=== PATIENT | male | born 1955 | race Caucasian/White ===

== ENCOUNTER → 2017-10-27 09:50 | Outpatient (CLI) | payer BC, SELFPAY ==
--- NOTE | 2017-10-27 09:55 | RAD_ITS ---
STUDY: X-RAY - CERVICAL SPINE REASON FOR EXAM: Male, 61 years old. Neck pain and headache every day. IVC 3 years ago. TECHNIQUE: 6 view(s) of the cervical spine were obtained. COMPARISON: None FINDINGS: Normal anterior atlantoaxial articulation. Normal odontoid process. Normal cervical lordosis. Normal vertebral bodies and endplates. Anterior marginal spurs at C6-C7 disc level. Normal disc space heights. Normal visualized intervertebral neuroforamina. The soft tissue structures are unremarkable. RAD/Cerv Spine 4 or 5 Views IMPRESSION: Anterior marginal spurs at C6-C7 disc level otherwise negative radiographs of the cervical spine. Electronically Signed: Fredo Patiño MD at 10:24 EDT , Service support ,
== END ==
LOC: RAD 09:52
PROVIDERS: Family Provider Family Medicine; PCP Family Medicine; Visit Provider Nurse Practitioner Family
DX: M77.8 Other enthesopathies, not elsewhere classified (principal); M46.02 Spinal enthesopathy, cervical region
CPT/HCPCS: 72050

== ENCOUNTER → 2017-11-05 15:15 | Outpatient (CLI) | payer BC, SELFPAY ==
--- NOTE | 2017-11-05 15:26 | MRI_ITS ---
STUDY: MRI CERVICAL SPINE WITHOUT CONTRAST REASON FOR EXAM: Male, 61 years old. TECHNIQUE: Standardized fat and water weighted pulse sequences were obtained in the sagittal and axial planes. COMPARISON: None FINDINGS: There is no tonsillar ectopia. There is a normal cervicomedullary junction. The cervical spinal cord is of normal morphology and signal intensity and shows no evidence of myelomalacia, myelopathy or contusion. The cervical spine itself shows normal alignment and curvature with no acute fractures or dislocations and no abnormal marrow infiltrative processes. There is a normal craniovertebral junction and an intact tectorial membrane. The disc spaces are all of normal height and signal. C2-3: Normal endplates. Normal disc height, signal and morphology. Normal central canal and intervertebral neural foramina. C3-4: Normal endplates. Normal disc height, signal and morphology. Normal central canal and intervertebral neural foramina. C4-5: Normal endplates. Normal disc height, signal and morphology. Mild disc bulging with effacement of the CSF anterior to the cord. The intervertebral foramina are patent. C5-6: Mild disc bulging with effacement of the CSF anterior to the cord. No focal disc protrusion or extrusion. The intervertebral foramina in the lateral recesses are clear.. C6-7: Mild concentric disc bulging with effacement of the CSF anterior to the cord. The intervertebral foramina are patent.. C7-T1: Normal endplates. Normal disc height, signal and morphology. Normal central canal and intervertebral neural foramina. . MRI/Spine Cervical (Routine) IMPRESSION: Mild concentric disc bulges at C4-C5, C5-C6 and C6-7 with effacement of the CSF anterior to the cord at these levels. There is no focal disc protrusion or extrusion. The intervertebral foramina in the lateral recesses are all patent at these levels Electronically Signed: Farooq Montez, at 7:15 EDT Tel , Service support ,
== END ==
PROVIDERS: Family Provider Family Medicine; PCP Family Medicine; Visit Provider Nurse Practitioner Family
DX: M54.12 Radiculopathy, cervical region (principal); M48.9 Spondylopathy, unspecified
CPT/HCPCS: 72141

== ENCOUNTER → 2018-05-05 09:13 | Outpatient (CLI) | payer MEDICARE, SELFPAY ==
[2016-09-08 15:09] VITALS: BMI 27.5
--- NOTE | 2018-05-05 09:22 | RAD_ITS ---
STUDY: X-RAY CHEST REASON FOR EXAM: Male, 62 years old. TECHNIQUE: COMPARISON: March 26, 2017 FINDINGS: The heart and mediastinum are within normal limits. Both lung barahona and costophrenic angles are clear. There is calcified lymph node in the right suprahilar area. The trachea is in the midline. The visualized bony thorax is intact. There are multiple metallic clips superimposing the gastric bubble from previous surgery. RAD/Chest PA and Lateral IMPRESSION: Negative chest for active disease unchanged since March 26, 2017 Electronically Signed: Thao Morton, at 14:38 EST Tel , Service support ,
--- NOTE | 2018-05-05 09:25 | EKG12_ITS ---
Test Reason : PRE-OP Blood Pressure : / mmHG Vent. Rate : 073 BPM Atrial Rate : 073 BPM P-R Int : 160 ms QRS Dur : 090 ms QT Int : 372 ms P-R-T Axes : 077 035 040 degrees QTc Int : 409 ms Normal sinus rhythm Normal ECG Confirmed by STEFAN JAMES, YOSSI ([id number]), desk editor GLENDY ROY ([id number] on 05/07/2018 3:27:59 PM Referred By: Dany Roy Confirmed By:YOSSI AVILES MD
== END ==
LOC: RAD 09:16
PROVIDERS: Family Provider Family Medicine; PCP Family Medicine; Referring Provider Orthopaedic Surgery; Visit Provider Orthopaedic Surgery
DX: Z01.810 Encounter for preprocedural cardiovascular examination (principal); Z01.811 Encounter for preprocedural respiratory examination
CPT/HCPCS: 71046; 93005

== ENCOUNTER → 2018-05-18 13:22 | Outpatient (CLI) | payer MEDICARE, SELFPAY ==
[2018-05-18 15:21] LABS: Hematocrit 37.7 % (40-54); Hemoglobin 13.1 g/dl (13.0-16.5); Mean Corp Hgb Conc 34.7 g/gl (32-36); Mean Corpuscular Hgb 33.4 pg (27.0-32.0); Mean Corpuscular Volume 96.2 fL (80-94); Mean Platelet Vol. 9.1 fl (6.2-12.0); Platelet Count 211 K/mm3 (150-450); RBC Distribution Width CV 13.9 % (11.6-14.6); RBC Distribution Width SD 48.3 fl (35.1-43.9); Red Blood Count 3.92 M/mm3 (4.6-6.2); White Blood Count 3.6 K/mm3 (4.4-11.0)
[2018-05-18 15:22] LABS: Scan Indicated on CBC? Y/N NO
[2018-05-18 15:30] LABS: Anion Gap 8 (5-15); BUN 11 mg/dL (7-18); BUN/Creat Ratio 10.9 RATIO (10-20); Calcium,Total 8.4 mg/dL (8.5-10.1); Chloride 109 mmol/L (98-107); Creatinine, Serum 1.01 mg/dL (0.70-1.30); EST Glomerular Filtration Rate 79 mL/min (>60); Est Glom Filt Rate - Afr Amer 96 mL/min (>60); Glucose 83 mg/dL (74-106); Sodium Level 143 mmol/L (136-145)
== END ==
PROVIDERS: Family Provider Family Medicine; PCP Family Medicine; Referring Provider Orthopaedic Surgery; Visit Provider Orthopaedic Surgery
DX: S83.232A Complex tear of medial meniscus, current injury, left knee, initial encounter (principal); M22.42 Chondromalacia patellae, left knee
CPT/HCPCS: 36415; 80048; 85027

== ENCOUNTER → 2021-10-25 | Outpatient (CLI) | payer MEDICARE, SELFPAY ==
[2021-10-25 16:42] LABS: Absolute Neutrophil Count 1.8 X10^3/uL (2.0-7.7); Basophil# 0.04 X10^3/uL; Eosinophil# 0.27 X10^3/uL; Eosinophils% 6.5 % (0-5); Hematocrit 38.1 % (40-54); Lymphocyte % 38.6 % (19-41); Mean Corp Hgb Conc 34.1 g/dL (32-36); Mean Corpuscular Hgb 30.7 pg (27.0-32.0); Mean Corpuscular Volume 89.9 fL (80-94); Mean Platelet Vol. 8.6 fl (6.2-12.0); Monocyte% 9.7 % (0-10); NRBC Flagged by Analyzer 0 % (0-5); Neutrophil # 1.82 X10^3/uL (2.7-7.7); Platelet Count 299 K/mm3 (150-450); RBC Distribution Width CV 12.6 % (11.6-14.6); Red Blood Count 4.24 M/mm3 (4.6-6.2); White Blood Count 4.1 K/mm3 (4.4-11.0)
[2021-10-25 17:10] LABS: Anion Gap 5 (5-15); BUN 15 mg/dL (7-18); BUN/Creat Ratio 18.9 RATIO (10-20); Calcium,Total 8.9 mg/dL (8.5-10.1); Chloride 107 mmol/L (98-107); Creatinine, Serum 0.79 mg/dL (0.70-1.30); EST Glomerular Filtration Rate 104 mL/min (>60); Est Glom Filt Rate - Afr Amer 126 mL/min (>60); Glucose 102 mg/dL (74-106); Potassium 4.2 mmol/L (3.5-5.1); Sodium Level 138 mmol/L (136-145)
== END | disposition home or self-care (01) ==
LOC: LAB 16:18
PROVIDERS: PCP Family Medicine; Referring Provider Internal Medicine Cardiovascular Disease; Visit Provider Internal Medicine Cardiovascular Disease
DX: R06.00 Dyspnea, unspecified (principal); R07.9 Chest pain, unspecified; E78.5 Hyperlipidemia, unspecified
CPT/HCPCS: 36415; 80048; 85025

== ENCOUNTER 2021-10-28 10:38 | Day surgery (SDC) | payer MEDICARE, SELFPAY ==
--- NOTE | 2021-10-25 16:12 | RAD_ITS ---
HISTORY: dyspnea. TECHNIQUE: XR Chest 2 Views. COMPARISON: 05/05/2018. FINDINGS: CARDIOMEDIASTINAL BORDERS: Cardiac silhouette within normal limits in size. Mediastinal contour unchanged with calcified right hilar lymph nodes. LUNGS: Radiographically clear. PLEURA: No pleural effusion or pneumothorax seen. OSSEOUS STRUCTURES: Mild degenerative change. OTHER: Left upper quadrant postoperative change. RAD/Chest PA and Lateral IMPRESSION: No acute cardiopulmonary process identified. Electronically Signed: Jazmyne Lund MD at 16:26 EDT ,
[2021-10-28 07:07] VITALS: BMI 25.7
--- NOTE | 2021-10-28 15:16 | CL.D_ITS ---
Patient Name: TARA CASTILLO Study Date: 10/28/2021 Performing: David Cabral MD Ht: 68.89 inches 175 cm : 1955 Wt: 174.17 lbs 79 kg Age: 65 Gender: male BSA: 1.95 PROCEDURE(S) PERFORMED DC01-(86975)LHC/COR/LV CLINICAL PROFILE AND INDICATIONS Indications: Worsening Angina Heart Failure: None Stress/Imaging Stress/Image Study Performed: No CAD Presentations: Unstable angina. CONCLUSIONS Non obstructive coronary arteries RECOMMENDATIONS Medical therapy DESCRIPTION OF PROCEDURE The patient arrived to the procedure lab. The risks and benefits of the procedure as well as a full d escription of our services here and current unavailability of surgical backup were fully explained to the patient and/or their significant other prior to the catheterization. The Timeout was completed, verifying the correct patient and procedure. The patient's procedural site was prepped and draped in the usual fashion. . Using a modified Seldinger technique, Left Coronary Artery selective angiograp hy was performed in multiple views using a 5 Fr. 4.0 Mobile catheter. Right Coronary Artery selective angiography was then performed in multiple views using a 5 Fr. 4.0 Mobile catheter. Left Ventriculogra phy was performed in GUIDRY projection using a 5 Fr. Pigtail catheter. LV to AO pullback pressures were then recorded.The arterial sheath was pulled and a TR Band was applied for hemostasis 12 CC AIR CORONARY ANGIOGRAPHY DOMINANCE: Right Dominant LEFT HEART ASSESSMENT Left Ventricular Ejection Fraction: by LV Gram 65 % Normal LV wall motion Normal Left Ventricular systolic function LEFT MAIN: Angiographically normal LEFT ANTERIOR DESCENDING ARTERY: Mild luminal irregularities less than 30% CIRCUMFLEX ARTERY: Mild luminal irregularities RIGHT CORONARY ARTERY: Mild luminal irregularities COMPLICATIONS PROCEDURE MEDICATIONS Versed 1 mg IV Fentanyl 50 mcg IV Versed 1 mg IV Oxygen: 2 L/min via nasal cannula Heparin given IA 10/28/2021 15:00:57 Verapamil 2.5mg, Ntg 100mcgs, 3000 units of Heparin given IA 10/28/2021 15:00:57 SUMMARY OF HEMODYNAMIC DATA Time AIR REST ECG 11:07:38 AO 105/61 (80) SA 15:02:23 LV 85/29, 37 15:08:06 LV 72/0, 3 15:08:37 LVp 86/1, 1 15:08:53 AOp 84/43 (61) 15:08:58 Signed By David Cabral MD On 10/28/2021 3:15:42 PM David Cabral MD
== END 2021-10-28 18:00 | disposition home or self-care (01) ==
LOC: CLSP 10:39
PROVIDERS: PCP Family Medicine; Referring Provider Internal Medicine Cardiovascular Disease; Visit Provider Internal Medicine Cardiovascular Disease
DX: I25.110 Atherosclerotic heart disease of native coronary artery with unstable angina pectoris (principal); K21.9 Gastro-esophageal reflux disease without esophagitis; G47.33 Obstructive sleep apnea (adult) (pediatric); E55.9 Vitamin D deficiency, unspecified; E78.5 Hyperlipidemia, unspecified; Z79.82 Long term (current) use of aspirin; Z79.899 Other long term (current) drug therapy; Z87.891 Personal history of nicotine dependence
CPT/HCPCS: 71046; 93458; 99152; 99153; J7040; Q9967; C1769; C1894

== ENCOUNTER 2022-09-02 12:18 | Day surgery (SDC) | payer MEDICARE, SELFPAY ==
[2022-09-02] VITALS (7 sets, daily range): BP systolic 104–111; BP diastolic 54–70; PULSE 73–83; RESP 16–18; TEMP 36.2–36.7; O2SAT 93–96; BMI 25.9
[2022-09-02] MEDS: Lactated Ringers 1,000 ML 15 ML IV (13:09)
--- NOTE | 2022-09-02 14:00 | EGD_PTH ---
PATIENT: TARA CASTILLO LOC: EN U#:[id number] AGE/SX: 66/M ROOM: RE09/02/[address]: Dr. Jason Nelson DO : 1955 BED: DIS: 09/02/2022 SPEC #: [id number] RECD: 09/02/22 16:05 STATUS: NEEMA YAZMIN #: [id number] TYRON: 09/02/22 14:[address]: Jason Nelson DEPT: SURGICAL PATHOLOGY RECD BY: Alessandra Hurtado ENTERED: 09/03/22 08:10 SP TYPE: EGD BIOPSY OT DR: Dr. Andry Etienne MD Tissues: Esophagus, NOS Procedures: Special Stain Group II Surgery Specimen Level IV Alcian Blue/PAS (control) HEADER OPERATION: EGD ([facility] [place] PRE-OP DIAGNOSIS: Abdominal pain, dysphagia TISSUE SUBMITTED: Distal esophagus MICROSCOPIC DIAGNOSIS Distal esophagus, biopsy: Gastroesophageal junctional mucosa with mild chronic inflammation. Focal changes of reflux. No evidence of goblet cell metaplasia. See comment. AM:jovan 09/04/2022 COMMENT Alcian blue/PAS stain with matched control supports the above diagnosis. MICROSCOPIC DESCRIPTION Slides are reviewed. GROSS DESCRIPTION Received in fixative is one container labeled with the patient's name and designated distal esophagus biopsy. The specimen consists of two irregular fragments of light torres soft tissue that in aggregate measure 0.9 x 0.5 x 0.1 cm. The specimen is totally submitted in one cassette. / AM:jovan 09/03/2022 TC:3 CPT: 50693, 50034
--- NOTE | 2022-09-02 15:03 | HP.PCM_ITS ---
History and Physical Date of Admission: 09/02/22 66 M who presents to the office today for Initial consult. Gi Hx diverticulosis, GERD s/p gastrojejunostomy, hiatal hernia s/p fundoplication 2007 during gastric bypass, peptic ulcer, PMH asthma, CAD, migraines, hyperlipidemia, [place] on BIPAP, Vit D deficiency, insomnia. PSH appendectomy; back surgeries (decompression, revision); cholecystectomy; heart catheterization; laparoscopic exploratory with adhesion takedown. FH colon cancer mother, sister; father pancreatic cancer. [facility] workup Gasrtojejunostomy/enteroenterostomy/appendectomy 02.02.07 for reflux and gastroparesis. Stomach mobilized via takedown; retrocolic passage of small bowel into upper abdomen. ?Pathology without inflammation or architectural distortion. PCP OV 03.07.22 with upper abdominal discomfort/pain. *BGI established 06.27.22 with ongoing upper abdominal discomfort/pain that is present on a daily basis with PO intake causing aggravation; present for many years (some relief following surgery 3 years previously during which scar tissue was reduced). Cannot lay on his back. Feels that his esophagus is ?closing? up with dysphagia and feeling as though breathing is restricting, this is not a daily issue but is frequently. BM occur vary in frequency from once a day to 4-5 watery/loose episodes a day; BM only occur if he drinks two cups of coffee. ROS Const Constitutional: No anorexia, fatigue, fever(s), weight change or sleep problems Eyes Eyes: No change in vision ENT ENT: No abnormal hearing, difficulty swallowing, mouth lesions, tongue swelling or throat swelling Resp Respiratory: No cough or shortness of breath Cardio Cardiology: No chest pain at rest, chest pain with exertion, shortness of breath or dyspnea on exertion Gastro GI: No difficulty swallowing Genitourinary Male: No difficulty urinating or burning urination Musc Musculoskeletal: No joint pain, joint swelling, muscle weakness or decreased muscle mass Skin Skin: No hair loss in leg, yellowing of the eye, itchy eyes, rash, skin ulcer or skin swelling Neuro Neurology: No abnormal hearing, abnormal movements, confusion, unsteady gait/balance or memory loss Psych Psychiatric: No anxiety, No confusion and No memory loss Endo Endocrine: No fatigue or weight change Aller/Imm Allergy/Immunologic: No itchy eyes, throat swelling or tongue swelling Carlos Alberto/Lymp Hematologic/Lymphatic: No easy bleeding, easy bruising or enlarged lymph nodes Exam Const General: cooperative and comfortable Nutritional Appearance: average body habitus and well nourished HENKY Head: normal to inspection Ears: hearing grossly normal bilaterally Nose: external nose normal Face and sinus: normal facial exam Mouth: oral mucosae normal Throat: posterior oropharynx normal Eyes General: appearance normal, both eyes and all related structures Neck Neck: normal visual inspection Chest Chest palpation & inspection: normal inspection of the chest and normal palpation of entire chest wall Resp Effort & Inspection: normal respiratory effort Auscultation: Bilateral: Clear to Auscultation Cardio Palpation: normal PMI Rate: regular rate Rhythm: regular rhythm GI Inspection: normal to inspection Auscultation: normal bowel sounds Percussion: normal to percussion Palpation: no hepatosplenomegaly Skin General: no rashes or lesions noted Neuro General: patient alert Extrem General: normal to inspection Psych Affect: normal affect Quality Reporting Tobacco Screening ([facility]) Smoking Status: Former smoker Assessment and Plan Assessment and Plan (1) Abdominal discomfort: ?Status:?Chronic ?Plan: The differential diagnosis for his abdominal discomfort and pain does include a anastomotic ulcer, bile reflux back into the jejunum and back into the remnant stomach.? Also and of diagnosis is IBS.? If the studies are subsequently normal then we may need to get MRCP to evaluate his hepatobiliary system.? Further recommendations to follow the undergoes an upper endoscopy. I have examined the patient and the H&P has been reviewed. There are no clinical changes since date of exam.
--- NOTE | 2022-09-02 15:31 | OP.EGD_ITS ---
Patient Name: Anam Arellano Procedure Date: 09/02/2022 2:59 PM Date of : 1955 Age: 66 Procedure: Upper GI endoscopy Indications: Epigastric abdominal pain, Dysphagia Providers: Jason Nelson DO Medicines: Monitored Anesthesia Care Patient Profile: This is a 66 year old male. Refer to note in patient chart for documentation of history and physical. Patient has symptoms of acute dysphagia and dysphagia with solids. Complications: No immediate complications. Procedure: Pre-Anesthesia Assessment: - Prior to the procedure, a History and Physical was performed, and patient medications and allergies were reviewed. The risks and benefits of the procedure and the sedation options and risks were discussed with the patient. All questions were answered and informed consent was obtained. Patient identification and proposed procedure were verified by the physician in the pre-procedure area. Mental Status Examination: alert and oriented. Airway Examination: normal oropharyngeal airway and neck mobility. Respiratory Examination: clear to auscultation. CV Examination: normal. Prophylactic Antibiotics: The patient does not require prophylactic antibiotics. Prior Anticoagulants: The patient has taken no previous anticoagulant or antiplatelet agents. After reviewing the risks and benefits, the patient was deemed in satisfactory condition to undergo the procedure. The anesthesia plan was to use monitored anesthesia care (MAC). Immediately prior to administration of medications, the patient was re-assessed for adequacy to receive sedatives. The heart rate, respiratory rate, oxygen saturations, blood pressure, adequacy of pulmonary ventilation, and response to care were monitored throughout the procedure. The physical status of the patient was re-assessed after the procedure. After obtaining informed consent, the endoscope was passed under direct vision. Throughout the procedure, the patient's blood pressure, pulse, and oxygen saturations were monitored continuously. The Endoscope was introduced through the mouth, and advanced to the second part of duodenum. The upper GI endoscopy was accomplished without difficulty. The patient tolerated the procedure well. Scope In: 3:13:09 PM Scope Out: 3:19:27 PM Total Procedure Duration Time 0 hours 6 minutes 18 seconds Findings: A moderate Schatzki ring was found in the upper third of the esophagus. A guidewire was placed and the scope was withdrawn. Dilation was performed with a Savary dilator with no resistance at 60 Fr. The dilation site was examined and showed complete resolution of luminal narrowing. Estimated blood loss was minimal. A small hiatal hernia was present. The Z-line was irregular and was found 40 cm from the incisors. Biopsies were taken with a cold forceps for histology. Verification of patient identification for the specimen was done. Estimated blood loss was minimal. Evidence of a Larry-en-Y gastrojejunostomy was found. The gastrojejunal anastomosis was characterized by a disrupted staple line. This was traversed. The rkifg-jp-lcvtlak limb was characterized by healthy appearing mucosa. The jejunojejunal anastomosis was characterized by healthy appearing mucosa. The mrudzihr-cb-ehzxwlc limb was not examined as it could not be found. Removal of a staple was accomplished with a rat-toothed forceps. Verification of patient identification for the specimen was done. Estimated blood loss was minimal. Impression: - Moderate Schatzki ring. Dilated. - Small hiatal hernia. - Z-line irregular, 40 cm from the incisors. Biopsied. - Larry-en-Y gastrojejunostomy with gastrojejunal anastomosis characterized by a disrupted staple line. Recommendation: - Discharge patient to home. - Resume previous diet. - Continue present medications. - Await pathology results. Procedure Code(s): --- Professional --- 13545, Esophagogastroduodenoscopy, flexible, transoral; with removal of foreign body(s) 35467, 51, Esophagogastroduodenoscopy, flexible, transoral; with insertion of guide wire followed by passage of dilator(s) through esophagus over guide wire 21061, 59, Esophagogastroduodenoscopy, flexible, transoral; with biopsy, single or multiple CPT copyright 2017 [employer]. All rights reserved. The codes documented in this report are preliminary and upon sergeant missile crewman review may be revised to meet current compliance requirements. Jason Nelson DO 09/02/2022 3:31:16 PM This report has been signed electronically. Number of Addenda: 0 Note Initiated On: 09/02/2022 2:59 PM
--- NOTE | 2022-09-02 15:32 | OP.CCLET_ITS ---
09/02/2022 Andry Etienne MD Re : Upper GI endoscopy procedure for Anam Arellano Dear Dr. Etienne This procedure was performed on Friday, September 02, 2022. My impressions and recommendations are as follows: Impressions : - Moderate Schatzki ring. Dilated. - Small hiatal hernia. - Z-line irregular, 40 cm from the incisors. Biopsied. - Larry-en-Y gastrojejunostomy with gastrojejunal anastomosis characterized by a disrupted staple line. Recommendations : - Discharge patient to home. - Resume previous diet. - Continue present medications. - Await pathology results. My findings are described in the full procedure note, which is enclosed. If I can be of further assistance, please feel free to contact me at . Sincerely, Jason Nelson, 09/02/2022 3:31:16 PM This report has been signed electronically.
== END 2022-09-02 16:25 | disposition home or self-care (01) ==
LOC: EN 12:25 → AC 12:26
PROVIDERS: PCP Family Medicine; Referring Provider Family Medicine; Visit Provider Internal Medicine Gastroenterology
PROC: 0DJ08ZZ Inspection of Upper Intestinal Tract, Via Natural or Artificial Opening Endoscopic (ICD-10-PCS; CPT 43235; principal; 2022-09-02 13:55)
DX: K22.2 Esophageal obstruction (principal); K44.9 Diaphragmatic hernia without obstruction or gangrene; K21.00 Gastro-esophageal reflux disease with esophagitis, without bleeding; G47.33 Obstructive sleep apnea (adult) (pediatric); I25.10 Atherosclerotic heart disease of native coronary artery without angina pectoris; E78.00 Pure hypercholesterolemia, unspecified; M19.90 Unspecified osteoarthritis, unspecified site; Z79.899 Other long term (current) drug therapy; Z87.891 Personal history of nicotine dependence
CPT/HCPCS: 43247; 43248; 43239; 88305; 88313; J7120; C1769; J2405

== ENCOUNTER → 2022-09-23 | Outpatient (CLI) | payer MEDICARE, SELFPAY ==
--- NOTE | 2022-09-23 06:42 | CT_ITS ---
EXAM: CT CHEST, ABDOMEN AND PELVIS WITH INTRAVENOUS CONTRAST CLINICAL INDICATION: chest and abdominal pain TECHNIQUE: Helically acquired images were obtained of the chest, abdomen and pelvis with intravenous contrast. This CT exam was performed using one or more of the following dose reduction techniques: automated exposure control, adjustment of the mA and/or kV according to patient size, and/or use of iterative reconstruction technique. CONTRAST: Oral and amp; IV Readi-CAT and amp; 100mL Isovue-300 COMPARISON: No relevant prior studies available. FINDINGS: CHEST: LUNGS AND PLEURAL SPACES: Diffuse centrilobular pulmonary emphysema. No airspace opacification of the lungs. No mass. No pleural effusion or thickening. HEART: Minimal coronary artery calcification. No pericardial effusion. Normal heart size. MEDIASTINUM: Small calcified right hilar lymph nodes related to old granulomatous disease. Small hiatal hernia. Esophagus is unremarkable. THYROID: Normal. No thyroid nodules or calcification. ABDOMEN: LIVER: Normal. Homogeneous. No focal mass. GALLBLADDER AND BILE DUCTS: Gallbladder is not identified. There is mild prominence of the biliary tree which may represent normal postcholecystectomy finding. PANCREAS: Normal. No focal cystic or solid mass. SPLEEN: Normal. Normal size without focal cystic or solid mass. ADRENALS: Normal. No nodules. KIDNEYS AND URETERS: Simple appearing 2.9 cm left renal cyst. Normal renal size and position. No hydronephrosis. STOMACH AND BOWEL: Surgical changes of Larry-en-Y gastric bypass. No evidence of bowel obstruction or significant ileus. PELVIS: APPENDIX: No evidence of acute appendicitis. BLADDER: Normal. REPRODUCTIVE: Unremarkable as visualized. No mass. CHEST, ABDOMEN and PELVIS: INTRAPERITONEAL SPACE: Normal. No ascites or other fluid collection. No free air. BONES/JOINTS: Moderate disc degeneration noted at the L4-5 level consisting of disc space narrowing, endplate sclerosis and subchondral cyst formation. SOFT TISSUES: Normal. No discrete abdominal or pelvic wall hernia. VASCULATURE: No aortic aneurysm. LYMPH NODES: No significant lymphadenopathy. CT/CT Chest, Abd, Pel w/Contrast IMPRESSION: 1. No acute cardiopulmonary abnormality. 2. Centrilobular pulmonary emphysema. 3. Small hiatal hernia. 4. No acute abdominal or pelvic abnormality. Electronically Signed: Alberto Avina MD at 7:51 EDT Reading Location ID and State: [facility] / [place] Tel , Service support ,
[2022-09-23 07:30] LABS: EGFR FINGERSTICK > 60.0000 mL/min (>60)
== END | disposition home or self-care (01) ==
LOC: CT 06:39
PROVIDERS: PCP Family Medicine; Referring Provider Internal Medicine Gastroenterology; Visit Provider Internal Medicine Gastroenterology
DX: R07.9 Chest pain, unspecified (principal)
CPT/HCPCS: 71260; 74177

== ENCOUNTER → 2022-10-04 | Outpatient (CLI) | payer MEDICARE, SELFPAY | END | disposition home or self-care (01) | LOC: LABSPEC 09:09 | PROVIDERS: PCP Family Medicine; Referring Provider Internal Medicine Pulmonary Disease; Visit Provider Internal Medicine Pulmonary Disease | DX: R05.9 Cough, unspecified (principal) | CPT/HCPCS: 87070; 87205 ==

== ENCOUNTER 2023-02-09 12:32 | Emergency (ER) | payer MEDICARE, SELFPAY ==
[2023-02-09] VITALS (8 sets, daily range): BP systolic 85–212; BP diastolic 39–171; PULSE 74–100; RESP 15–22; TEMP 36.6; O2SAT 91–98
--- NOTE | 2023-02-09 13:51 | CT_ITS ---
STUDY: CT BRAIN WITHOUT CONTRAST REASON FOR EXAM: Male, 67 years old. Syncope RADIATION DOSAGE (If Supplied By Facility): CTDIvol = ( 47.06 ) mGy, DLP = ( 907.97 ) mGycm TECHNIQUE: Transaxial CT imaging of the brain was performed without administration of intravenous contrast material. Individualized dose optimization techniques were used for this CT. COMPARISON: Comparison is made with prior examination dated June 16, 2014. FINDINGS: Normal soft tissue structures. Normal calvarium. Normal size ventricles and extra-axial spaces for the patient''s age. Normal white matter tracts of the cerebral hemispheres. Normal basal ganglia and thalami. Normal brainstem. Normal cerebellum. There is no intracranial hemorrhage. There are no findings of an acute ischemic infarction. Mild degree mucosal thickening of the ethmoid sinuses bilaterally. CT/Brain/Head without Contrast IMPRESSION: Mild degree of mucosal thickening of the ethmoid sinuses bilaterally. Electronically Signed: Jey Montiel MD at 14:43 EDT ,
--- NOTE | 2023-02-09 13:53 | EX.ED.DYSGE1 ---
HPI <KATARINA Yuen - Last Filed: 02/09/23 18:15> History of Present Illness Chief Complaint: Fall Narrative Narrative: Patient is a 67-year-old male with history of GERD, asthma, who presents to the emergency department for significant pain to the upper abdomen that caused him to almost lose consciousness. Patient states the pain started in his abdomen when he was having a bowel movement this morning. He then got into the shower, had significant pain again to the upper abdomen, and had a near syncopal episode. He then had to get out of the shower go to have another bowel movement. Patient states this happened 3 more times. Patient states the pain is not as severe as what it was however he is here for evaluation. He does have history of cholecystectomy, appendectomy. He does see Dr. Nelson for his acid reflux and had esophageal stretching. Patient states the pain is at a 6 out of 10 at this time. Patient denies any blood in his stool or vomit patient denies any chest pain. PFSH <KATARINA Yuen - Last Filed: 02/09/23 18:15> [facility] Medical History Anxiety Arthritis Asthma Bilateral carotid artery disease Cardiology follow-up encounter Chronic low back pain CPAP (continuous positive airway pressure) dependence Diverticulosis Former smoker Gastric reflux GERD (gastroesophageal reflux disease) Hiatal hernia High cholesterol History of stress test History of ulceration Hyperlipidemia Injury of back Insomnia Iron deficiency anemia Iron deficiency anemia secondary to inadequate dietary iron intake Low iron Lumbar disc disease Malabsorption syndrome Nonobstructive atherosclerosis of coronary artery [place] treated with BiPAP Peptic ulcer Pulmonary emphysema Sleep apnea Vitamin D deficiency Wears glasses Wears partial dentures Home Medications calcium carbonate 600 mg-vitamin D3 10 mcg (400 unit) chewable tablet (Calcium 600 with Vitamin D3) 1 ea PO DAILY 09/08/16 [History Last Taken Unknown] albuterol sulfate 90 mcg/actuation aerosol inhaler (Ventolin HFA) 2 puff inhalation Q6H PRN Wheezing 10/24/21 [History Last Taken Unknown] budesonide-formoterol HFA 80 mcg-4.5 mcg/actuation aerosol inhaler 2 puff inhalation BID 10/24/21 [History Last Taken 09/02/22] cholecalciferol (vitamin D3) 1,250 mcg (50,000 unit) tablet 1,250 mcg PO QWEEK 10/24/21 [History Last Taken Unknown] cyanocobalamin (vitamin B-12) 1,000 mcg tablet (Vitamin B-12) 2,000 mcg PO DAILY 10/24/21 [History Last Taken Unknown] epinephrine 0.3 mg/0.3 mL injection, auto-injector (EpiPen) 0.3 mg IM ONCE PRN Allergic Reaction 10/24/21 [History Last Taken Unknown] nitroglycerin 0.4 mg sublingual tablet 0.4 mg sublingual Q5-15M PRN Chest Pain 10/24/21 [History Last Taken Unknown] omega-3 fatty acids 1,000 mg capsule 1,000 mg PO DAILY 10/24/21 [History Last Taken Unknown] omeprazole 40 mg capsule,delayed release 40 mg PO BID 10/24/21 [History Last Taken Unknown] coenzyme Q10 100 mg capsule (Co Q-10) 100 mg PO DAILY 10/25/21 [History Last Taken Unknown] iron, carbonyl 45 mg tablet 45 mg PO DAILY 04/22/22 [History Last Taken Unknown] pravastatin 80 mg tablet 40 mg PO QHS 10/29/22 [History Last Taken Unknown] azithromycin 250 mg tablet (Zithromax) 250 mg PO DAILY 4 days #4 tabs 02/09/23 [Rx Last Taken Unknown] Allergy/AdvReac Type Severity Reaction Status Date / Time bee venom protein (honey bee) Allergy Intermediate Hives Verified 02/09/23 12:34 morphine Allergy Intermediate hypotension Verified 02/09/23 12:34 pneumococcal vaccine Allergy Intermediate localized Verified 02/09/23 12:34 swelling acetaminophen Allergy Unknown Verified 02/09/23 12:34 [From Darvocet-N 100] codeine Allergy Unknown Verified 02/09/23 12:34 meperidine HCl [From Demerol] Allergy Unknown Verified 02/09/23 12:34 propoxyphene HCl Allergy Unknown Verified 02/09/23 12:34 [From Darvon] propoxyphene napsylate Allergy Unknown Verified 02/09/23 12:34 [From Darvocet-N 100] atorvastatin [From Lipitor] AdvReac Intermediate leg Verified 02/09/23 12:34 weakness Family History Mother Diabetes CHF (congestive heart failure) Hypertension Colon cancer Father Cancer pancreatic Sister Colon cancer Brother COPD (chronic obstructive pulmonary disease) Diabetes Cancer prostate Surgical History H/O bypass gastrojejunostomy (~2006) History of appendectomy History of back surgery (09/11/15) History of carpal tunnel release History of cholecystectomy (~2002) History of colonoscopy (~10/23/20) History of esophagogastroduodenoscopy (EGD) (~10/23/20) History of gastric bypass History of left heart catheterization (10/28/21) Social History Smoking Status: Former smoker Tobacco: How many years used: 33 how long ago did patient quit smokin08/07/2001 alcohol intake: never substance use type: does not use ROS <KATARINA Yuen - Last Filed: 02/09/23 18:15> ROS ED ROS Narrative Constitutional: Negative for fever, chills, weight loss, weakness Eyes: Negative for vision loss, vision change, double vision ENT: Negative for any sore throat, ear pain, congestion Cardiovascular: Negative for any chest pain, tightness, palpitations Respiratory: Negative for any cough, sputum production, hemoptysis, dyspnea, dyspnea on exertion, orthopnea Gastrointestinal: Negative for any vomiting, diarrhea, constipation, blood in stool, blood in vomit. Patient has significant upper abdominal pain : Negative for any urinary frequency, dysuria, retention, blood in urine Muscle skeletal: Negative for any muscle joint pain, stiffness, myalgias, arthralgias, neck pain, back pain Neurological: Negative for any headache, numbness or tingling, dizziness. Near syncope Skin: Negative for any rashes, lumps, itching, abrasions, lacerations Psychiatric: Negative for any depression, anxiety, stress, suicidal ideation, homicidal ideation Hematologic: Negative for any easy bruising, excessive bruising, easy bleeding Allergies: Negative for any eczema, hives, rash EXAM <KATARINA Yuen - Last Filed: 02/09/23 18:15> Physical Exam Narrative Exam Narrative: Vital signs reviewed. Patient appears to be in no obvious distress during my examination. Patient did have a elevated blood pressure of 212/171. However on reevaluation, patient's blood pressure is 122/67. Patient looks to be in no distress. HEET: Head normocephalic atraumatic, TMs clear bilaterally. Posterior pharynx is clear, moist mucous membranes. Nares clear bilaterally. Neck: Supple with no lymphadenopathy or tenderness. No signs of meningismus, negative jolt sign. Cardiac: Regular rate and rhythm no murmurs gallops or rubs, equal peripheral pulses bilaterally. Respiratory: Lungs clear to auscultation bilaterally. No chest tenderness. Abdomen: Soft, nondistended. No abdominal bruit or pulsatile masses. No hepatosplenomegaly. Patient has pain to both the right upper, epigastric pain. Worse on palpation. No peritoneal signs. Active bowel sounds in all quadrants Extremities: No peripheral edema, no signs of gross trauma or deformity. Active full range of motion of all extremities. Neuro: Cranial nerves II through XII intact, no focal neurological deficits. Skin: Clean dry and intact with no rash, purpura, petechiae, vesicles or pustules. Backs/flank: No CVA tenderness, no midline spinal tenderness, no deformity. Psych: Normal mood and affect. No SI, HI or acute psychosis. Const Vital Signs: 02/09/23 12:35 02/09/23 13:31 02/09/23 13:31 Temperature 97.9 F Temperature Source Temporal Pulse Rate 88 86 Pulse Rate [Lying] Pulse Rate [Sitting (for 1 minute prior to obtaining)] Pulse Rate [Standing (for 1 minute prior to obtaining)] Respiratory Rate 16 16 Respiratory Effort Respiratory Pattern Blood Pressure 212/171 H 119/64 Blood Pressure [Lying] Blood Pressure [Sitting (for 1 minute prior to obtaining)] Blood Pressure [Standing (for 1 minute prior to obtaining)] Blood Pressure Mean 184 82 Blood Pressure Mean [Lying] Blood Pressure Mean [Sitting (for 1 minute prior to obtaining)] Blood Pressure Mean [Standing (for 1 minute prior to obtaining)] Pulse Ox 98 97 97 Oxygen Delivery Method Room Air Room Air Room Air 02/09/23 13:31 02/09/23 13:31 02/09/23 14:20 Temperature Temperature Source Pulse Rate 87 Pulse Rate [Lying] 86 Pulse Rate [Sitting (for 1 minute prior to obtaining)] 98 Pulse Rate [Standing (for 1 minute prior to obtaining)] 100 Respiratory Rate 15 Respiratory Effort Normal Non-Labored Respiratory Pattern Normal Blood Pressure 142/68 H Blood Pressure [Lying] 131/64 H Blood Pressure [Sitting (for 1 minute prior to obtaining)] 122/89 H Blood Pressure [Standing (for 1 minute prior to obtaining)] 122/67 H Blood Pressure Mean 92 Blood Pressure Mean [Lying] 86 Blood Pressure Mean [Sitting (for 1 minute prior to obtaining)] 100 Blood Pressure Mean [Standing (for 1 minute prior to obtaining)] 85 Pulse Ox 91 Oxygen Delivery Method Room Air 02/09/23 15:00 02/09/23 15:33 02/09/23 15:37 Temperature Temperature Source Pulse Rate 74 85 84 Pulse Rate [Lying] Pulse Rate [Sitting (for 1 minute prior to obtaining)] Pulse Rate [Standing (for 1 minute prior to obtaining)] Respiratory Rate 16 22 H Respiratory Effort Respiratory Pattern Blood Pressure 116/55 L 85/39 L 114/58 L Blood Pressure [Lying] Blood Pressure [Sitting (for 1 minute prior to obtaining)] Blood Pressure [Standing (for 1 minute prior to obtaining)] Blood Pressure Mean 75 54 76 Blood Pressure Mean [Lying] Blood Pressure Mean [Sitting (for 1 minute prior to obtaining)] Blood Pressure Mean [Standing (for 1 minute prior to obtaining)] Pulse Ox 96 Oxygen Delivery Method Room Air 02/09/23 16:00 02/09/23 18:00 Temperature Temperature Source Pulse Rate 84 89 Pulse Rate [Lying] Pulse Rate [Sitting (for 1 minute prior to obtaining)] Pulse Rate [Standing (for 1 minute prior to obtaining)] Respiratory Rate 20 H 22 H Respiratory Effort Respiratory Pattern Blood Pressure 118/60 128/64 H Blood Pressure [Lying] Blood Pressure [Sitting (for 1 minute prior to obtaining)] Blood Pressure [Standing (for 1 minute prior to obtaining)] Blood Pressure Mean 79 85 Blood Pressure Mean [Lying] Blood Pressure Mean [Sitting (for 1 minute prior to obtaining)] Blood Pressure Mean [Standing (for 1 minute prior to obtaining)] Pulse Ox 96 93 Oxygen Delivery Method Room Air Room Air <Dr. Maycol Olivares MD - Last Filed: 02/09/23 15:36> Physical Exam Const Vital Signs: 02/09/23 12:35 02/09/23 13:31 02/09/23 13:31 Temperature 97.9 F Temperature Source Temporal Pulse Rate 88 86 Pulse Rate [Lying] Pulse Rate [Sitting (for 1 minute prior to obtaining)] Pulse Rate [Standing (for 1 minute prior to obtaining)] Respiratory Rate 16 16 Respiratory Effort Respiratory Pattern Blood Pressure 212/171 H 119/64 Blood Pressure [Lying] Blood Pressure [Sitting (for 1 minute prior to obtaining)] Blood Pressure [Standing (for 1 minute prior to obtaining)] Blood Pressure Mean 184 82 Blood Pressure Mean [Lying] Blood Pressure Mean [Sitting (for 1 minute prior to obtaining)] Blood Pressure Mean [Standing (for 1 minute prior to obtaining)] Pulse Ox 98 97 97 Oxygen Delivery Method Room Air Room Air Room Air 02/09/23 13:31 02/09/23 13:31 02/09/23 14:20 Temperature Temperature Source Pulse Rate 87 Pulse Rate [Lying] 86 Pulse Rate [Sitting (for 1 minute prior to obtaining)] 98 Pulse Rate [Standing (for 1 minute prior to obtaining)] 100 Respiratory Rate 15 Respiratory Effort Normal Non-Labored Respiratory Pattern Normal Blood Pressure 142/68 H Blood Pressure [Lying] 131/64 H Blood Pressure [Sitting (for 1 minute prior to obtaining)] 122/89 H Blood Pressure [Standing (for 1 minute prior to obtaining)] 122/67 H Blood Pressure Mean 92 Blood Pressure Mean [Lying] 86 Blood Pressure Mean [Sitting (for 1 minute prior to obtaining)] 100 Blood Pressure Mean [Standing (for 1 minute prior to obtaining)] 85 Pulse Ox 91 Oxygen Delivery Method Room Air 02/09/23 15:00 02/09/23 15:33 02/09/23 15:37 Temperature Temperature Source Pulse Rate 74 85 84 Pulse Rate [Lying] Pulse Rate [Sitting (for 1 minute prior to obtaining)] Pulse Rate [Standing (for 1 minute prior to obtaining)] Respiratory Rate 16 22 H Respiratory Effort Respiratory Pattern Blood Pressure 116/55 L 85/39 L 114/58 L Blood Pressure [Lying] Blood Pressure [Sitting (for 1 minute prior to obtaining)] Blood Pressure [Standing (for 1 minute prior to obtaining)] Blood Pressure Mean 75 54 76 Blood Pressure Mean [Lying] Blood Pressure Mean [Sitting (for 1 minute prior to obtaining)] Blood Pressure Mean [Standing (for 1 minute prior to obtaining)] Pulse Ox 96 Oxygen Delivery Method Room Air 02/09/23 16:00 02/09/23 18:00 Temperature Temperature Source Pulse Rate 84 89 Pulse Rate [Lying] Pulse Rate [Sitting (for 1 minute prior to obtaining)] Pulse Rate [Standing (for 1 minute prior to obtaining)] Respiratory Rate 20 H 22 H Respiratory Effort Respiratory Pattern Blood Pressure 118/60 128/64 H Blood Pressure [Lying] Blood Pressure [Sitting (for 1 minute prior to obtaining)] Blood Pressure [Standing (for 1 minute prior to obtaining)] Blood Pressure Mean 79 85 Blood Pressure Mean [Lying] Blood Pressure Mean [Sitting (for 1 minute prior to obtaining)] Blood Pressure Mean [Standing (for 1 minute prior to obtaining)] Pulse Ox 96 93 Oxygen Delivery Method Room Air Room Air [facility] <KATARINA Yuen - Last Filed: 02/09/23 18:15> [facility] Lab Data Labs: Laboratory Results - last 24 hr 02/09/23 02/09/23 12:45 14:20 WBC 11.5 H RBC 4.66 Hgb 14.0 Hct 41.9 MCV 89.9 MCH 30.0 MCHC 33.4 RDW Std Deviation 41.4 RDW Coeff of Dari 12.6 Plt Count 242 MPV 9.1 Immature Gran % (Auto) 0.300 Neut % (Auto) 84.8 H Lymph % (Auto) 5.9 L [place] % (Auto) 7.8 Eos % (Auto) 0.9 Baso % (Auto) 0.3 Absolute Neuts (auto) 9.7 H Absolute Lymphs (auto) 0.68 L Nucleated RBC % 0 Sodium 139 Potassium 4.2 Chloride 106 Carbon Dioxide 28.0 Anion Gap 5 BUN 16 Creatinine 0.90 Est GFR (MDRD) Af Amer 107 Est GFR (MDRD) Non-Af 89 BUN/Creatinine Ratio 17.7 Glucose 106 Calcium 9.1 Total Bilirubin 0.50 AST 144 H ALT 114 H Alkaline Phosphatase 85 Troponin I High Sens 4 Total Protein 7.1 Albumin 4.0 Globulin 3.1 Albumin/Globulin Ratio 1.3 Lipase 42 Urine Color Yellow Urine Clarity Clear Urine pH 5.0 Ur Specific [place] 1.015 Urine Protein Negative Urine Glucose (UA) Normal Urine Ketones Negative Urine Occult Blood Negative Urine Nitrite Negative Urine Bilirubin Negative Urine Urobilinogen Normal Ur Leukocyte Esterase Negative Urine RBC 0 SEEN Urine WBC 0 SEEN Ur Squamous Epith Cells 0-5 SEEN Amorphous Sediment 1+ URATE Urine Bacteria 0 SEEN Urine Mucus 0 SEEN Radiography Diagnostic Testing: Clinical Impression(s) from Imaging Studies Brain CT 02/09/23 13:51 IMPRESSION: Mild degree of mucosal thickening of the ethmoid sinuses bilaterally. Electronically Signed: Jey Montiel MD at 14:43 EDT , Abdomen/Pelvis CT 02/09/23 15:09 IMPRESSION: Right lower lobe airspace disease consistent with pneumonia. Mild biliary duct dilation, unchanged from the prior study and consistent with presumed prior cholecystectomy. Electronically Signed: Zara Magallanes MD at 17:06 EDT , Treatment and Re-Evaluation :: Patient initial evaluation was in no obvious distress. Patient is concerned for his upper abdominal pain. Patient also concerned because he has had multiple head injuries over the last 2 to 3 weeks. Patient states that he had a large branch fall on his head that caused him to have a concussion as well as a loss of consciousness. Patient received basic laboratory values concerning for any acute pancreatitis, electrolyte abnormalities, leukocytosis. CT scan of the abdomen pelvis with IV contrast will be ordered to rule out any bowel obstruction, free air, diverticulitis, pancreatitis. Patient will receive a CT scan of the brain concerning for the multiple head injuries with LOC and continued headache. Patient was given 0.5 mg of Dilaudid as well as IV Zofran and IV fluids. Laboratory values show leukocytosis white blood count 11.5. Patient's chemistries show slight elevation in AST, ALT at 144 and 114. Patient's lipase was negative. Urinalysis was negative for infection. Patient CT scan of the brain showed mild degree of mucosal thickening however no acute process. Patient CT of the abdomen pelvis showed right lower lobe airspace disease consistent with pneumonia. Mild biliary duct dilatation, unchanged from prior study and consistent with presumed prior cholecystectomy. Secondary this finding, patient will be given a chest x-ray to rule out any pneumonia. Patient's x-ray done by ER physician does show pneumonia of the right lower lobe. This could be causing the pain. Patient weeks with azithromycin. First dose given here, will take 200 mg the next 4 days. He was given oxycodone here prior to discharge. He is instructed to return for any worsening symptoms. He will take ibuprofen, Tylenol for any other discomfort. He instructed return for any coughing, shortness of breath, worsening pain. <Dr. Maycol Olivares MD - Last Filed: 02/09/23 15:36> [facility] Narrative Medical decision making narrative: I have personally performed a face to face assessment of the patient and have reviewed the ZACHERY Note. I performed a substantive portion of the visit including all aspects of the following. My todd findings include: History is 67-year-old male complaining of abdominal pain today while he was having a bowel movement. Denies any significant constipation. No melena. No fever. States that he has had a prior cholecystectomy, appendectomy and partial gastrectomy. He is never had a bowel obstruction. Denies any back pain. Exam is [67-year-old male initial blood pressure is 212 and 171 rechecked 142/68. He does not look septic or toxic. He is complaint abdominal pain. Is been treated with IV Dilaudid. HEENT exam unremarkable. Moist weeks membranes. Neck nontender no JVD. Lungs clear to auscultation. Heart regular rhythm no murmur rate about 85. Chest wall nontender. Abdomen prior well-healed abdominal scars. Mildly distended. Diffusely tender. No localizing but diffuse tenderness. Moves all 4 extremities. Nontender no edema. Neurologically is awake and alert.] Medical Decision Making [67-year-old male with abdominal pain differential would include bowel obstruction, AAA, perforated viscus versus other etiologies. CAT scan labs are being obtained. Is also recently had some falls and some head injuries and a CAT scan of his head is being obtained also because of headaches.] Other additions or changes: [None] Lab Data Labs: Laboratory Results - last 24 hr 02/09/23 02/09/23 12:45 14:20 WBC 11.5 H RBC 4.66 Hgb 14.0 Hct 41.9 MCV 89.9 MCH 30.0 MCHC 33.4 RDW Std Deviation 41.4 RDW Coeff of Dari 12.6 Plt Count 242 MPV 9.1 Immature Gran % (Auto) 0.300 Neut % (Auto) 84.8 H Lymph % (Auto) 5.9 L [place] % (Auto) 7.8 Eos % (Auto) 0.9 Baso % (Auto) 0.3 Absolute Neuts (auto) 9.7 H Absolute Lymphs (auto) 0.68 L Nucleated RBC % 0 Sodium 139 Potassium 4.2 Chloride 106 Carbon Dioxide 28.0 Anion Gap 5 BUN 16 Creatinine 0.90 Est GFR (MDRD) Af Amer 107 Est GFR (MDRD) Non-Af 89 BUN/Creatinine Ratio 17.7 Glucose 106 Calcium 9.1 Total Bilirubin 0.50 AST 144 H ALT 114 H Alkaline Phosphatase 85 Troponin I High Sens 4 Total Protein 7.1 Albumin 4.0 Globulin 3.1 Albumin/Globulin Ratio 1.3 Lipase 42 Urine Color Yellow Urine Clarity Clear Urine pH 5.0 Ur Specific [place] 1.015 Urine Protein Negative Urine Glucose (UA) Normal Urine Ketones Negative Urine Occult Blood Negative Urine Nitrite Negative Urine Bilirubin Negative Urine Urobilinogen Normal Ur Leukocyte Esterase Negative Urine RBC 0 SEEN Urine WBC 0 SEEN Ur Squamous Epith Cells 0-5 SEEN Amorphous Sediment 1+ URATE Urine Bacteria 0 SEEN Urine Mucus 0 SEEN Radiography Diagnostic Testing: Clinical Impression(s) from Imaging Studies Brain CT 02/09/23 13:51 IMPRESSION: Mild degree of mucosal thickening of the ethmoid sinuses bilaterally. Electronically Signed: Jey Montiel MD at 14:43 EDT , Abdomen/Pelvis CT 02/09/23 15:09 IMPRESSION: Right lower lobe airspace disease consistent with pneumonia. Mild biliary duct dilation, unchanged from the prior study and consistent with presumed prior cholecystectomy. Electronically Signed: Zara Magallanes MD at 17:06 EDT [place] Location ID and State: [id number] / Tel , Service support , Discharge Plan Triage Chief Complaint: Fall Other Complaint: Syncope ED Midlevel Provider: Ronak Miller ED Provider: Maycol Olivares Dx/Rx/DC Orders Clinical Impression: Cough, Community acquired bacterial pneumonia, Abdominal pain, acute, right upper quadrant Instructions: ED Pneumonia (Adult) Prescriptions: New azithromycin [Zithromax] 250 mg tablet 250 mg PO DAILY 4 Days Qty: 4 0RF Rx Instructions: start on day 2 of therapy No Action coenzyme Q10 [Co Q-10] 100 mg capsule 100 mg PO DAILY omeprazole 40 mg capsule,delayed release(DR/EC) 40 mg PO BID budesonide-formoterol 80-4.5 mcg/actuation HFA aerosol inhaler 2 puff inhalation BID cyanocobalamin (vitamin B-12) [Vitamin B-12] 1,000 mcg tablet 2,000 mcg PO DAILY cholecalciferol (vitamin D3) 1,250 mcg (50,000 unit) tablet 1,250 mcg PO QWEEK epinephrine [EpiPen] 0.3 mg/0.3 mL auto-injector 0.3 mg IM ONCE PRN (Reason: Allergic Reaction) Rx Instructions: as a single dose; may repeat once omega-3 fatty acids 1,000 mg capsule 1,000 mg PO DAILY nitroglycerin 0.4 mg tablet, sublingual 0.4 mg sublingual Q5-15M PRN (Reason: Chest Pain) Rx Instructions: do not exceed 3 doses per episode iron, carbonyl 45 mg tablet 45 mg PO DAILY pravastatin 80 mg tablet 40 mg PO QHS Calcium 600 with Vitamin D3 1 EACH tablet,chewable 1 ea PO DAILY albuterol sulfate [Ventolin HFA] 90 mcg/actuation HFA aerosol inhaler 2 puff inhalation Q6H PRN (Reason: Wheezing) Primary Care Provider: Andry Etienne Referrals: Andry Etienne MD [Primary Care Provider] - Activity Restrictions/Additional Instructions: Take antibiotics until finished. Return for any worsening symptoms Disposition Disposition: Home, Self Care
[2023-02-09 13:57] LABS: Absolute Lymphocyte Count 0.68 X10^3/uL (0.83-4.51); Absolute Neutrophil Count 9.7 X10^3/uL (2.0-7.7); Basophil# 0.03 X10^3/uL; Basophil% 0.3 % (0-1); Eosinophils% 0.9 % (0-5); Hematocrit 41.9 % (40-54); Lymphocyte # 0.68 X10^3/ul (0.83-4.51); Lymphocyte % 5.9 % (19-41); Mean Corp Hgb Conc 33.4 g/dL (32-36); Mean Corpuscular Volume 89.9 fL (80-94); Mean Platelet Vol. 9.1 fl (6.2-12.0); Monocyte# 0.89 X10^3/uL; Monocyte% 7.8 % (0-10); NRBC Flagged by Analyzer 0 % (0-5); Neutrophil # 9.74 X10^3/uL (2.7-7.7); Neutrophil % 84.8 % (47-70); Platelet Count 242 K/mm3 (150-450); RBC Distribution Width CV 12.6 % (11.6-14.6); RBC Distribution Width SD 41.4 fl (35.1-43.9); Red Blood Count 4.66 M/mm3 (4.6-6.2); White Blood Count 11.5 K/mm3 (4.4-11.0)
[2023-02-09] MEDS: HYDROmorphone 1 MG/ML Syringe 0.5 MG IV (14:04)
[2023-02-09] MEDS: Ondansetron 4 MG/2 ML Vial IV (14:04)
[2023-02-09] MEDS: 0.9% Normal Saline (1000mL) 1,000 ML 1000 ML IV (14:05)
[2023-02-09 14:11] LABS: ALB/GLOB Ratio 1.3 RATIO (0.9-2.4); AST(SGOT) 144 U/L (15-37); Alanine Aminotransfer ALT/SGPT 114 U/L (16-61); Alkaline Phosphatase 85 U/L (45-117); Anion Gap 5 (5-15); BUN 16 mg/dL (7-18); BUN/Creat Ratio 17.7 RATIO (10-20); Calcium,Total 9.1 mg/dL (8.5-10.1); Chloride 106 mmol/L (98-107); EST Glomerular Filtration Rate 89 mL/min (>60); Est Glom Filt Rate - Afr Amer 107 mL/min (>60); Globulin 3.1 g/dL (2.2-4.2); Glucose 106 mg/dL (74-106); Lipase 42 U/L (13-75); Potassium 4.2 mmol/L (3.5-5.1); Protein, Total 7.1 g/dL (6.4-8.2); Sodium Level 139 mmol/L (136-145); Troponin-I HS 4 pg/mL (3.0-78.0)
[2023-02-09 14:24] LABS: Bacteria 0 SEEN /hpf (None Seen); Mucous, Urine 0 SEEN /hpf (<or=2+); Red Blood Cells-Urine 0 SEEN /hpf (0-5); White Blood Cells 0 SEEN /hpf (0-5)
[2023-02-09 14:42] LABS: Color, Urine Yellow (Yellow); Glucose, Dipstick Normal (Normal); Ketone-Dipstick Negative (Negative); Leukocyte Esterase-Dipstick Negative /ul (Negative); Nitrite-Dipstick Negative (Negative); Occult Blood-Urine Negative /ul (Negative); Protein-Dipstick Negative (Negative); Specific Gravity, Urine 1.015 (1.002-1.030); Urine Bilirubin Dipstick Negative (Negative); Urine Clarity Clear (Clear); Urine Urobilinogen Normal (Normal)
[2023-02-09 15:09] LABS: Amorphous Sediment 1+ URATE; Squamous Epithelial Cells - UA 0-5 SEEN /hpf (0-5)
--- NOTE | 2023-02-09 15:09 | CT_ITS ---
EXAM: CT ABDOMEN AND PELVIS WITH INTRAVENOUS CONTRAST CLINICAL INDICATION: abdominal pain TECHNIQUE: Helically acquired images were obtained of the abdomen and pelvis with intravenous contrast. This CT exam was performed using one or more of the following dose reduction techniques: automated exposure control, adjustment of the mA and/or kV according to patient size, and/or use of iterative reconstruction technique. CONTRAST: IV 100mL [id number] COMPARISON: 09/23/2022. FINDINGS: LOWER THORAX: Patchy airspace disease in the right middle lobe and right lower lobe suspicious for pneumonia. No cardiomegaly. No significant pericardial effusion. ABDOMEN: LIVER: Mild intrahepatic and extrahepatic biliary duct dilation, unchanged from the prior study. GALLBLADDER AND BILE DUCTS: Gallbladder is absent. PANCREAS: Unremarkable. No focal cystic or solid mass. SPLEEN: Calcified granulomata. Normal size without focal cystic or solid mass. ADRENALS: Unremarkable. No nodules. KIDNEYS AND URETERS: 2.7 cm upper pole left renal cyst, stable. Kidneys are otherwise unremarkable. No hydronephrosis. Normal renal size and position. STOMACH AND BOWEL: Prior gastric surgery. No stomach or bowel distention. No focal inflammatory change. PELVIS: APPENDIX: No evidence of acute appendicitis. BLADDER: Unremarkable. REPRODUCTIVE: Unremarkable as visualized. No mass. ABDOMEN and PELVIS: INTRAPERITONEAL SPACE: Unremarkable. No ascites or other fluid collection. No free air. BONES/JOINTS: Unremarkable. No suspicious lytic or blastic abnormality. SOFT TISSUES: Unremarkable. No discrete abdominal or pelvic wall hernia. VASCULATURE: Unremarkable. Abdominal aorta is normal in caliber. LYMPH NODES: Unremarkable. No enlarged lymph nodes. CT/Abdomen/Pelvis W IV Cont ONLY IMPRESSION: Right lower lobe airspace disease consistent with pneumonia. Mild biliary duct dilation, unchanged from the prior study and consistent with presumed prior cholecystectomy. Electronically Signed: Zara Magallanes MD at 17:06 EDT [place] Location ID and State: [id number] / Tel , Service support ,
--- NOTE | 2023-02-09 17:50 | RAD_ITS ---
INDICATION: back pain EXAMINATION/TECHNIQUE: X-RAY - XR Chest 1 View COMPARISON: CT chest 02/09/2023. FINDINGS: LINES/DEVICES: None. LUNGS: No edema or effusion. No pneumothorax. Mild hazy opacity in the right lower lobe consistent with pneumonia. Lungs are otherwise clear. MEDIASTINUM AND CARDIOVASCULAR STRUCTURES: Cardiac silhouette not enlarged. Central airways and mediastinal contour are unremarkable. BONES AND SOFT TISSUES: Unremarkable. RAD/Chest 1 View (Portable) IMPRESSION: Right lower lobe pneumonia. Electronically Signed: Zara Magallanes MD at 19:21 EDT Reading Location ID and State: [id number] / Tel , Service support ,
[2023-02-09] MEDS: oxyCODONE 5 MG Tablet PO (18:24)
[2023-02-09] MEDS: Azithromycin 250 MG Tablet 500 MG PO (18:24)
== END 2023-02-09 19:20 | disposition home or self-care (01) ==
PROVIDERS: Nurse Practitioner; Emergency Provider Emergency Medicine; PCP Family Medicine; Visit Provider Emergency Medicine
DX: R05.9 Cough, unspecified (principal); J18.9 Pneumonia, unspecified organism; R10.11 Right upper quadrant pain; I25.10 Atherosclerotic heart disease of native coronary artery without angina pectoris; G47.30 Sleep apnea, unspecified; Z87.891 Personal history of nicotine dependence
CPT/HCPCS: 70450; 71045; 74177; 80053; 81001; 83690; 84484; 85025; 93005; 96374; 96375; 96376; 99285; J7030; Q9967; A4216; J2405

== ENCOUNTER 2023-03-20 11:34 | Emergency (ER) | payer MEDICARE, SELFPAY ==
[2023-03-20 11:35] VITALS: BP 139/63; PULSE 84; RESP 20; TEMP 35.7; O2SAT 99; BMI 26.9
--- NOTE | 2023-03-20 11:56 | EKG12_ITS ---
Test Reason : SOB Blood Pressure : / mmHG Vent. Rate : 078 BPM Atrial Rate : 078 BPM P-R Int : 152 ms QRS Dur : 076 ms QT Int : 354 ms P-R-T Axes : 073 032 069 degrees QTc Int : 403 ms Normal sinus rhythm Normal ECG Confirmed by EMMY JAMES, SAMY ([id number]), manuscript editor HANNA DURANT ([id number]) on 03/23/2023 8:26:29 AM Referred By: Confirmed By:ASHLEE BOOTH MD
--- NOTE | 2023-03-20 11:57 | ED.VIS.DYS ---
HPI History of Present Illness Chief Complaint: Shortness of Breath Informant: patient and spouse/S.O. Narrative Narrative: Patient is a very poor historian who states he has had substernal chest pain and tightness and shortness of breath for several months and nothing seems to be helping. He denies having history of COPD although in his EMR is listed pulmonary emphysema. States he has a history of asthma, however prednisone and albuterol have not been helping. He states he was seen here as well as the [facility] and diagnosed with pneumonia, placed on antibiotics and prednisone, and then subsequently tested positive for COVID 8 days ago, states the cough is improved but his shortness of breath and chest discomfort or not. He has some orthopnea. He has no pain or swelling in his legs. No history of DVT or PE that he knows of. The chest discomfort is not necessarily pleuritic, it is there all the time. It is nonlateralizing and nonradiating. [facility] Medical History Anxiety Arthritis Asthma Bilateral carotid artery disease Cardiology follow-up encounter Chronic low back pain CPAP (continuous positive airway pressure) dependence Diverticulosis Former smoker Gastric reflux GERD (gastroesophageal reflux disease) Hiatal hernia High cholesterol History of stress test History of ulceration Hyperlipidemia Injury of back Insomnia Iron deficiency anemia Iron deficiency anemia secondary to inadequate dietary iron intake Low iron Lumbar disc disease Malabsorption syndrome Nonobstructive atherosclerosis of coronary artery [place] treated with BiPAP Peptic ulcer Pulmonary emphysema Sleep apnea Vitamin D deficiency Wears glasses Wears partial dentures Home Medications calcium carbonate 600 mg-vitamin D3 10 mcg (400 unit) chewable tablet (Calcium 600 with Vitamin D3) 1 ea PO DAILY 09/08/16 [History Last Taken Unknown] albuterol sulfate 90 mcg/actuation aerosol inhaler (Ventolin HFA) 2 puff inhalation Q6H PRN Wheezing 10/24/21 [History Last Taken Unknown] budesonide-formoterol HFA 80 mcg-4.5 mcg/actuation aerosol inhaler 2 puff inhalation BID 10/24/21 [History Last Taken 09/02/22] cholecalciferol (vitamin D3) 1,250 mcg (50,000 unit) tablet 1,250 mcg PO QWEEK 10/24/21 [History Last Taken Unknown] cyanocobalamin (vitamin B-12) 1,000 mcg tablet (Vitamin B-12) 2,000 mcg PO DAILY 10/24/21 [History Last Taken Unknown] epinephrine 0.3 mg/0.3 mL injection, auto-injector (EpiPen) 0.3 mg IM ONCE PRN Allergic Reaction 10/24/21 [History Last Taken Unknown] nitroglycerin 0.4 mg sublingual tablet 0.4 mg sublingual Q5-15M PRN Chest Pain 10/24/21 [History Last Taken Unknown] omega-3 fatty acids 1,000 mg capsule 1,000 mg PO DAILY 10/24/21 [History Last Taken Unknown] omeprazole 40 mg capsule,delayed release 40 mg PO BID 10/24/21 [History Last Taken Unknown] coenzyme Q10 100 mg capsule (Co Q-10) 100 mg PO DAILY 10/25/21 [History Last Taken Unknown] iron, carbonyl 45 mg tablet 45 mg PO DAILY 04/22/22 [History Last Taken Unknown] pravastatin 80 mg tablet 40 mg PO QHS 10/29/22 [History Last Taken Unknown] azithromycin 250 mg tablet (Zithromax) 250 mg PO DAILY 4 days #4 tabs 02/09/23 [Rx Last Taken Unknown] doxycycline monohydrate 100 mg capsule 100 mg PO BID #14 CAPSULES 03/20/23 [Rx Last Taken Unknown] prednisone 10 mg tablet 10 mg PO UD #30 tabs 03/20/23 [Rx Last Taken Unknown] Allergy/AdvReac Type Severity Reaction Status Date / Time bee venom protein (honey bee) Allergy Intermediate Hives Verified 02/09/23 12:34 morphine Allergy Intermediate hypotension Verified 02/09/23 12:34 pneumococcal vaccine Allergy Intermediate localized Verified 02/09/23 12:34 swelling acetaminophen Allergy Unknown Verified 02/09/23 12:34 [From Darvocet-N 100] codeine Allergy Unknown Verified 02/09/23 12:34 meperidine HCl [From Demerol] Allergy Unknown Verified 02/09/23 12:34 propoxyphene HCl Allergy Unknown Verified 02/09/23 12:34 [From Darvon] propoxyphene napsylate Allergy Unknown Verified 02/09/23 12:34 [From Darvocet-N 100] atorvastatin [From Lipitor] AdvReac Intermediate leg Verified 02/09/23 12:34 weakness Family History (Reviewed 10/29/22 @ 08:42 by Candy Skaggs SALES CLERK SUPERVISOR, SALES CLERK SUPERVISOR-C) Mother Diabetes CHF (congestive heart failure) Hypertension Colon cancer Father Cancer pancreatic Sister Colon cancer Brother COPD (chronic obstructive pulmonary disease) Diabetes Cancer prostate Surgical History (Reviewed 10/29/22 @ 08:42 by Candy Skaggs SALES CLERK SUPERVISOR, SALES CLERK SUPERVISOR-C) H/O bypass gastrojejunostomy (~2006) History of appendectomy History of back surgery (09/11/15) History of carpal tunnel release History of cholecystectomy (~2002) History of colonoscopy (~10/23/20) History of esophagogastroduodenoscopy (EGD) (~10/23/20) History of gastric bypass History of left heart catheterization (10/28/21) Social History Smoking Status: Former smoker Tobacco: How many years used: 33 how long ago did patient quit smokin08/07/2001 alcohol intake: never substance use type: does not use ROS ROS ED Constitutional Constitutional ED: Denies chills or fever(s) Eyes Eyes: Denies change in vision or diplopia ENT ENT ED: Denies rhinorrhea or sore throat Cardiovascular Cardiovascular: Reports chest pain and orthopnea; Denies palpitations Respiratory/Chest Respiratory/Chest: Reports cough, dyspnea and orthopnea Gastrointestinal Gastrointestinal: Denies abdominal pain, diarrhea, nausea or vomiting Genitourinary Genitourinary ED: Denies dysuria or hematuria Musculoskeletal Musculoskeletal: Denies back pain or neck pain Integumentary Denies abscess or rash Neurologic Neurologic: Denies headache(s), paresthesias or weakness Psychiatric Psychiatric: Denies anxiety or suicidal thoughts EXAM Physical Exam Const Vital Signs: 03/20/23 11:35 03/20/23 12:33 03/20/23 12:33 Temperature 96.2 F L Temperature Source Temporal Pulse Rate 84 83 Respiratory Rate 20 H 16 Respiratory Effort Respiratory Depth Respiratory Pattern Blood Pressure 139/63 H Blood Pressure Mean 88 Pulse Ox 99 96 95 Oxygen Delivery Method Room Air Room Air Room Air 03/20/23 12:33 Temperature Temperature Source Pulse Rate Respiratory Rate Respiratory Effort Short of Breath Labored Respiratory Depth Normal Respiratory Pattern Normal Blood Pressure Blood Pressure Mean Pulse Ox Oxygen Delivery Method Room Air Positive well nourished and well developed General Appearance ED: well developed and NAD HEENT Reports moist mucous membranes normocephalic and atraumatic Eyes PERRL and EOMs intact bilaterally Neck full ROM, supple and no JVD Resp normal respiratory effort and clear to auscultation bilaterally Effort and Inspection: able to speak in complete sentences Cardio regular rate, regular rhythm and no murmurs GI non-tender and non-distended Auscultation: normoactive bowel sounds Palpation: soft Back/Spine no CVA tenderness General Back: other FROM Extremity normal to inspection General Extremety ED: Negative for edema, pulses abnormal or tenderness General Extremity: Negative for edema or pulses abnormal Neuro oriented x3, CN's II-XII intact bilaterally and no sensory deficits noted Sensorium / Orientation: awake and alert Motor Exam: strength 5/5 throughout Skin no rashes or lesions noted and no wounds MDM MDM MDM Narrative Medical decision making narrative: Differential here includes pneumonia, COPD exacerbation, pulmonary embolus, acute coronary syndrome, pneumothorax although his lungs are clear and equal bilaterally. Unlikely to be aortic dissection since he does not have pain suggesting this and he has equal radial pulses. Chest x-ray does show a narrow mediastinum, 2 views of my interpretation, some chronic changes including calcified granulomas but no acute pneumonia or pneumothorax. Radiology in agreement. His cardiac work-up is normal, his BNP is normal, he has a normal white blood count of 6.7, there is no left shift however he has 2.5% bands which is of undetermined significance since it seems like it has been at least a week since he has been on prednisone, and the rest of his work-up is normal including a D-dimer which is negative ruling out pulmonary embolus. Patient is comfortable sitting here and conversive in full sentences with normal vital signs. We discussed the diagnosis of pulmonary edema, he does confirm that he did pulmonary function test at 1 time. We discussed the difference between the nonreversible disease that this is versus reversible asthma. He understands. We ambulated him, he was not hypoxic and did okay, no lower than 94% on room air, so I will put him on a prednisone taper as well as doxycycline to prophylax against bacterial superinfection and have him follow-up with his senior oracle dba Dr. Dumas. Lab Data Attestation: I reviewed the patient's lab results. Labs: Laboratory Results - last 24 hr 03/20/23 12:13 WBC 6.7 RBC 4.31 L Hgb 13.3 Hct 40.1 MCV 93.0 MCH 30.9 MCHC 33.2 RDW Std Deviation 43.8 RDW Coeff of Dari 12.8 Plt Count 294 MPV 8.1 Immature Gran % (Auto) 2.500 H Neut % (Auto) 60.5 Lymph % (Auto) 22.7 [place] % (Auto) 8.8 Eos % (Auto) 4.5 Baso % (Auto) 1.0 Absolute Neuts (auto) 4.1 Absolute Lymphs (auto) 1.52 Nucleated RBC % 0 D-Dimer Quant (PE/DVT) 0.31 Sodium 139 Potassium 4.1 Chloride 103 Carbon Dioxide 30.0 Anion Gap 6 BUN 17 Creatinine 0.82 Estim Creat Clear Calc 89.02 Est GFR (MDRD) Af Amer 120 Est GFR (MDRD) Non-Af 99 BUN/Creatinine Ratio 20.7 H Glucose 107 H Calcium 8.9 Troponin I High Sens 4 B-Natriuretic Peptide 3.3 Radiography Diagnostic Testing: Clinical Impression(s) from Imaging Studies Chest X-Ray 03/20/23 12:20 IMPRESSION: Calcified granulomas. Calcified right hilar lymph nodes. There has been no change. Electronically Signed: Jey Montiel MD at 13:12 EST , Rhythm Strip Rhythm Strip: Sinus Rhythm Rate: 80 Ectopy: None EKG Initial EKG: Attestation: I personally reviewed and interpreted this EKG as follows: Interpretation: Sinus Rhythm and No Acute Injury Pattern Discharge Plan Triage Chief Complaint: Shortness of Breath ED Provider: Thor Garcia Dx/Rx/DC Orders Clinical Impression: Acute exacerbation of chronic obstructive pulmonary disease, Chest pain Instructions: ED COPD Flare Prescriptions: New prednisone 10 mg tablet 10 mg PO UD Qty: 30 0RF Rx Instructions: Take 4 tablets daily for 3 days, then 3 daily for 3 days, then 2 daily for 3 days, then 1 a day for 3 days doxycycline monohydrate 100 mg capsule 100 mg PO BID Qty: 14 0RF No Action coenzyme Q10 [Co Q-10] 100 mg capsule 100 mg PO DAILY omeprazole 40 mg capsule,delayed release(DR/EC) 40 mg PO BID budesonide-formoterol 80-4.5 mcg/actuation HFA aerosol inhaler 2 puff inhalation BID cyanocobalamin (vitamin B-12) [Vitamin B-12] 1,000 mcg tablet 2,000 mcg PO DAILY cholecalciferol (vitamin D3) 1,250 mcg (50,000 unit) tablet 1,250 mcg PO QWEEK epinephrine [EpiPen] 0.3 mg/0.3 mL auto-injector 0.3 mg IM ONCE PRN (Reason: Allergic Reaction) Rx Instructions: as a single dose; may repeat once omega-3 fatty acids 1,000 mg capsule 1,000 mg PO DAILY nitroglycerin 0.4 mg tablet, sublingual 0.4 mg sublingual Q5-15M PRN (Reason: Chest Pain) Rx Instructions: do not exceed 3 doses per episode iron, carbonyl 45 mg tablet 45 mg PO DAILY pravastatin 80 mg tablet 40 mg PO QHS Calcium 600 with Vitamin D3 1 EACH tablet,chewable 1 ea PO DAILY albuterol sulfate [Ventolin HFA] 90 mcg/actuation HFA aerosol inhaler 2 puff inhalation Q6H PRN (Reason: Wheezing) azithromycin [Zithromax] 250 mg tablet 250 mg PO DAILY 4 Days Qty: 4 0RF Rx Instructions: start on day 2 of therapy Primary Care Provider: Andry Etienne Referrals: Andry Etienne MD [Primary Care Provider] - Kirk Dumas MD [Med Staff - Active Staff] - As soon as possible Disposition Disposition: Home, Self Care
--- NOTE | 2023-03-20 12:20 | RAD_ITS ---
STUDY: X-RAY CHEST REASON FOR EXAM: Male, 67 years old. Cough sob cp TECHNIQUE: PA and lateral views of the chest. COMPARISON: Comparison is made with prior study dated February 09, 2023. FINDINGS: EKG and right RIBS are seen. Scattered calcified granulomas. There is no demonstrated pleural abnormality. Normal size heart. Calcified right hilar lymph nodes. Normal visualized pulmonary arteries. Normal visualized aortic arch and descending thoracic aorta. There is demineralization of the osseous structures. Normal visualized ribs, clavicles, and shoulders. There is no demonstrated abnormality of the visualized soft tissue structures of the upper abdomen. RAD/Chest PA and Lateral IMPRESSION: Calcified granulomas. Calcified right hilar lymph nodes. There has been no change. Electronically Signed: Jey Montiel MD at 13:12 EST ,
[2023-03-20 12:27] LABS: Absolute Lymphocyte Count 1.52 X10^3/uL (0.83-4.51); Absolute Neutrophil Count 4.1 X10^3/uL (2.0-7.7); Basophil# 0.07 X10^3/uL; Eosinophils% 4.5 % (0-5); Hematocrit 40.1 % (40-54); Hemoglobin 13.3 g/dL (13.0-16.5); Lymphocyte # 1.52 X10^3/ul (0.83-4.51); Lymphocyte % 22.7 % (19-41); Mean Corp Hgb Conc 33.2 g/dL (32-36); Mean Corpuscular Hgb 30.9 pg (27.0-32.0); Mean Platelet Vol. 8.1 fl (6.2-12.0); Monocyte# 0.59 X10^3/uL; Monocyte% 8.8 % (0-10); NRBC Flagged by Analyzer 0 % (0-5); Neutrophil # 4.06 X10^3/uL (2.7-7.7); Neutrophil % 60.5 % (47-70); Platelet Count 294 K/mm3 (150-450); RBC Distribution Width CV 12.8 % (11.6-14.6); RBC Distribution Width SD 43.8 fl (35.1-43.9); Red Blood Count 4.31 M/mm3 (4.6-6.2); White Blood Count 6.7 K/mm3 (4.4-11.0)
[2023-03-20 12:33] VITALS: PULSE 83; RESP 16; O2SAT 94; O2SAT 95; O2SAT 96
[2023-03-20 12:39] LABS: D-Dimer Quantitative (DVT/PE) 0.31 FEU/ug/m (0.27-0.49)
[2023-03-20 12:46] LABS: Anion Gap 6 (5-15); BUN 17 mg/dL (7-18); BUN/Creat Ratio 20.7 RATIO (10-20); Calcium,Total 8.9 mg/dL (8.5-10.1); Chloride 103 mmol/L (98-107); Creatinine, Serum 0.82 mg/dL (0.70-1.30); EST Glomerular Filtration Rate 99 mL/min (>60); Est Glom Filt Rate - Afr Amer 120 mL/min (>60); Estimated Creatinine Clearance 89.02 ml/min; Glucose 107 mg/dL (74-106); Potassium 4.1 mmol/L (3.5-5.1); Sodium Level 139 mmol/L (136-145); Troponin-I HS 4 pg/mL (3.0-78.0)
[2023-03-20 13:35] VITALS: O2SAT 96
[2023-03-20 13:36] LABS: BNP,B-Type NATRIURETIC PEPTIDE 3.3 pg/mL (0-100)
[2023-03-20] MEDS: MethylPREDNISolone 125 MG/2 ML Vial IV (14:18)
== END 2023-03-20 14:26 | disposition home or self-care (01) ==
PROVIDERS: Emergency Provider Emergency Medicine; PCP Family Medicine; Visit Provider Emergency Medicine
DX: J44.1 Chronic obstructive pulmonary disease with (acute) exacerbation (principal); R07.9 Chest pain, unspecified; I25.10 Atherosclerotic heart disease of native coronary artery without angina pectoris; G47.33 Obstructive sleep apnea (adult) (pediatric); Z87.891 Personal history of nicotine dependence; Z86.16 Personal history of COVID-19
CPT/HCPCS: 71046; 80048; 83880; 84484; 85025; 85379; 93005; 96374; 99283; A4216

== ENCOUNTER 2023-05-18 12:10 | Emergency (ER) | payer MEDICARE, SELFPAY ==
[2023-05-18 12:11] VITALS: BP 153/79; PULSE 79; RESP 18; TEMP 35.9; O2SAT 96; BMI 25.9
--- NOTE | 2023-05-18 12:18 | EX.ED.VIS.UR ---
HPI HPI - URI History of Present Illness Chief Complaint: Cough Informant: patient Onset/Context/Timing Onset: Weeks (1) Context: Gradual Onset Timing: Continuous Quality: Congested Location: Chest and upper airway Worsened by: - (Exertion) Relieved by: - (Rest) Associated Symptoms Associated Symptoms: Positive for Nasal Congestion, Diarrhea, Shortness of Breath and Productive Cough (Green and yellow sputum); Negative for Headache, Sinus Pressure, Myalgias, Nausea, Vomiting, Chest Pain, Nonproductive cough or Hemoptysis Narrative Narrative: Patient presents with cough and shortness of breath that has been getting worse over the past week. Patient was started on prednisone and Levaquin by his primary care physician. Patient states he does not feel much better. Patient states he is currently on these medications and still has 1 more day. Patient states he had a low-grade fever initially but currently denies any fevers or chills. Patient admits to some green and yellow sputum production with his cough. Patient states his breathing is worse with any exertion. Patient states that his cough is worse with laying flat. ROS ROS ED Constitutional Constitutional ED: Reports fever(s); Denies chills Eyes Eyes: Denies blurry vision or change in vision ENT ENT ED: Denies rhinorrhea or sore throat Cardiovascular Cardiovascular: Denies chest pain or palpitations Respiratory/Chest Respiratory/Chest: Reports cough and dyspnea Gastrointestinal Gastrointestinal: Reports diarrhea; Denies nausea or vomiting Genitourinary Genitourinary ED: Reports urinary frequency; Denies dysuria or hematuria Musculoskeletal Musculoskeletal: Reports back pain; Denies neck pain Integumentary Reports abscess; Denies rash Neurologic Neurologic: Denies headache(s) or weakness Allergic/Immunologic Allergic/Immunologic ED: Denies mouth swelling or urticaria [facility] Medical History Anxiety Arthritis Asthma Bilateral carotid artery disease Cardiology follow-up encounter Chronic low back pain CPAP (continuous positive airway pressure) dependence Diverticulosis Former smoker Gastric reflux GERD (gastroesophageal reflux disease) Hiatal hernia High cholesterol History of stress test History of ulceration Hyperlipidemia Injury of back Insomnia Iron deficiency anemia Iron deficiency anemia secondary to inadequate dietary iron intake Low iron Lumbar disc disease Malabsorption syndrome Nonobstructive atherosclerosis of coronary artery [place] treated with BiPAP Peptic ulcer Pulmonary emphysema Sleep apnea Vitamin D deficiency Wears glasses Wears partial dentures Home Medications calcium carbonate 600 mg-vitamin D3 10 mcg (400 unit) chewable tablet (Calcium 600 with Vitamin D3) 1 ea PO DAILY 09/08/16 [History Last Taken Unknown] albuterol sulfate 90 mcg/actuation aerosol inhaler (Ventolin HFA) 2 puff inhalation Q6H PRN Wheezing 10/24/21 [History Last Taken Unknown] budesonide-formoterol HFA 80 mcg-4.5 mcg/actuation aerosol inhaler 2 puff inhalation BID 10/24/21 [History Last Taken 09/02/22] cholecalciferol (vitamin D3) 1,250 mcg (50,000 unit) tablet 1,250 mcg PO QWEEK 10/24/21 [History Last Taken Unknown] cyanocobalamin (vitamin B-12) 1,000 mcg tablet (Vitamin B-12) 2,000 mcg PO DAILY 10/24/21 [History Last Taken Unknown] epinephrine 0.3 mg/0.3 mL injection, auto-injector (EpiPen) 0.3 mg IM ONCE PRN Allergic Reaction 10/24/21 [History Last Taken Unknown] nitroglycerin 0.4 mg sublingual tablet 0.4 mg sublingual Q5-15M PRN Chest Pain 10/24/21 [History Last Taken Unknown] omega-3 fatty acids 1,000 mg capsule 1,000 mg PO DAILY 10/24/21 [History Last Taken Unknown] omeprazole 40 mg capsule,delayed release 40 mg PO BID 10/24/21 [History Last Taken Unknown] coenzyme Q10 100 mg capsule (Co Q-10) 100 mg PO DAILY 10/25/21 [History Last Taken Unknown] iron, carbonyl 45 mg tablet 45 mg PO DAILY 04/22/22 [History Last Taken Unknown] pravastatin 80 mg tablet 40 mg PO QHS 10/29/22 [History Last Taken Unknown] azithromycin 250 mg tablet (Zithromax) 250 mg PO DAILY 4 days #4 tabs 02/09/23 [Rx Last Taken Unknown] doxycycline monohydrate 100 mg capsule 100 mg PO BID #14 CAPSULES 03/20/23 [Rx Last Taken Unknown] prednisone 10 mg tablet 10 mg PO UD #30 tabs 03/20/23 [Rx Last Taken Unknown] Allergy/AdvReac Type Severity Reaction Status Date / Time bee venom protein (honey bee) Allergy Intermediate Hives Verified 05/18/23 12:11 morphine Allergy Intermediate hypotension Verified 05/18/23 12:11 pneumococcal vaccine Allergy Intermediate localized Verified 05/18/23 12:11 swelling acetaminophen Allergy Unknown Verified 05/18/23 12:11 [From Darvocet-N 100] codeine Allergy Unknown Verified 05/18/23 12:11 meperidine HCl [From Demerol] Allergy Unknown Verified 05/18/23 12:11 propoxyphene HCl Allergy Unknown Verified 05/18/23 12:11 [From Darvon] propoxyphene napsylate Allergy Unknown Verified 05/18/23 12:11 [From Darvocet-N 100] atorvastatin [From Lipitor] AdvReac Intermediate leg Verified 05/18/23 12:11 weakness Family History Mother Diabetes CHF (congestive heart failure) Hypertension Colon cancer Father Cancer pancreatic Sister Colon cancer Brother COPD (chronic obstructive pulmonary disease) Diabetes Cancer prostate Surgical History H/O bypass gastrojejunostomy (~2006) History of appendectomy History of back surgery (09/11/15) History of carpal tunnel release History of cholecystectomy (~2002) History of colonoscopy (~10/23/20) History of esophagogastroduodenoscopy (EGD) (~10/23/20) History of gastric bypass History of left heart catheterization (10/28/21) Social History Smoking Status: Former smoker Tobacco: How many years used: 33 how long ago did patient quit smokin08/07/2001 alcohol intake: never substance use type: does not use EXAM Physical Exam Const Vital Signs: 05/18/23 12:11 05/18/23 13:21 05/18/23 12:50 Temperature 96.7 F L Temperature Source Temporal Pulse Rate 79 84 Respiratory Rate 18 17 Respiratory Effort Normal Non-Labored Respiratory Depth Normal Respiratory Pattern Normal Normal Blood Pressure 153/79 H Blood Pressure Mean 103 Pulse Ox 96 Oxygen Delivery Method Room Air Positive well nourished and well developed General Appearance ED: well developed and NAD HEENT Reports moist mucous membranes Neck supple, no meningeal signs and no JVD Resp normal respiratory effort Auscultation: diminished lung sounds diffuse Cardio Rate: regular rate Rhythm: regular rhythm GI Palpation: soft and tender LUQ Extremity normal to inspection and full ROM Neuro oriented x3, CN's II-XII intact bilaterally and no sensory deficits noted Sensorium / Orientation: alert Motor Exam: strength 5/5 throughout MDM MDM MDM Narrative Medical decision making narrative: Differential diagnosis includes pneumonia, COPD exacerbation, cardiac dysrhythmia, cardiac ischemia, gastritis, gastroesophageal reflux disease, pancreatitis, and viral illness. Chest x-ray will be obtained to assess for pneumonia and pneumothorax. EKG will be obtained to assess for cardiac dysrhythmia and cardiac ischemia. CBC will be obtained to assess for leukocytosis and anemia. Comprehensive metabolic profile will be obtained to assess for hepatic function, renal function, and electrolyte abnormality. Lipase will be obtained to assess for pancreatitis. COVID-19, RSV, and influenza PCR swabs will be obtained to assess for COVID-19, RSV, and influenza infection. Lab Data Attestation: I reviewed the patient's lab results. Lab results narrative: CBC was reviewed and was essentially within normal limits. Comprehensive metabolic profile was reviewed and was essentially within normal limits. D-dimer was reviewed and was normal at 0.33. High-sensitivity troponin was reviewed and was normal at 4. Urinalysis was reviewed. There is no evidence of urinary tract infection or hematuria. RSV PCR was reviewed and was positive. Influenza A and influenza B PCR was reviewed and was negative. COVID-19 PCR was reviewed and was negative. Labs: Laboratory Results - last 24 hr 05/18/23 05/18/23 12:40 14:00 WBC 6.2 RBC 4.28 L Hgb 13.1 Hct 37.8 L MCV 88.3 MCH 30.6 MCHC 34.7 RDW Std Deviation 41.6 RDW Coeff of Dari 12.9 Plt Count 259 MPV 8.3 Immature Gran % (Auto) 0.500 Neut % (Auto) 81.8 H Lymph % (Auto) 14.0 L [place] % (Auto) 3.2 Eos % (Auto) 0.0 Baso % (Auto) 0.5 Absolute Neuts (auto) 5.1 Absolute Lymphs (auto) 0.87 Nucleated RBC % 0 D-Dimer Quant (PE/DVT) 0.33 Sodium 140 Potassium 4.1 Chloride 108 H Carbon Dioxide 27.0 Anion Gap 5 BUN 10 Creatinine 0.95 Estim Creat Clear Calc 76.84 Est GFR (MDRD) Af Amer 102 Est GFR (MDRD) Non-Af 84 BUN/Creatinine Ratio 10.5 Glucose 136 H Calcium 9.1 Total Bilirubin 0.30 AST 47 H ALT 55 Alkaline Phosphatase 68 Troponin I High Sens 4 Total Protein 7.1 Albumin 3.6 Globulin 3.5 Albumin/Globulin Ratio 1.0 Urine Color Yellow Urine Clarity Clear Urine pH 6.5 Ur Specific [place] 1.005 Urine Protein Negative Urine Glucose (UA) Normal Urine Ketones Negative Urine Occult Blood Negative Urine Nitrite Negative Urine Bilirubin Negative Urine Urobilinogen Normal Ur Leukocyte Esterase Negative Urine RBC 0 SEEN Urine WBC 0 SEEN Ur Squamous Epith Cells 0-5 SEEN Urine Bacteria 0 SEEN Urine Mucus 0 SEEN Radiography Chest X-Ray - ED: 2 View, Read by ED Physician, Read by Radiologist and No Acute Disease Diagnostic Testing: Clinical Impression(s) from Imaging Studies Chest X-Ray 05/18/23 12:33 IMPRESSION: No radiographic evidence of acute cardiopulmonary disease. Electronically Signed: Oscar Kerns MD at 13:23 EST , [place] and lateral chest x-ray was obtained. There are 2 views. On my independent interpretation, lung [place] are clear. There is normal cardiac silhouette. Bony thorax is normal. There is no acute process noted. Radiologist also interpreted the x-ray and agrees. EKG Initial EKG: Attestation: I personally reviewed and interpreted this EKG as follows: Interpretation: Sinus Rhythm (81) and No Acute Injury Pattern Comments: EKG was obtained. On my independent interpretation, it showed a normal sinus rhythm with a rate of 81. NM interval, QRS interval, and QTc intervals were all normal. [place] was normal. There are no acute ST or T wave changes. Prior EKG tracings: available for review Prior: Unchanged (01/18/2023) Treatment and Re-Evaluation Narrative: Patient was given a DuoNeb aerosol here. Patient was advised of his findings. Patient was instructed to drink plenty of fluids. Patient was instructed to finish his prednisone as prescribed. Patient was instructed to follow-up with his primary care physician in 5 to 7 days. Patient was instructed return if worse anyway. Patient understood and was agreeable with the plan. All questions were answered. Discharge Plan Triage Chief Complaint: Cough ED Provider: Lionel Neville Dx/Rx/DC Orders Clinical Impression: Respiratory syncytial virus (RSV) infection, Hyperlipidemia, Elevated blood pressure reading Instructions: RSV (Respiratory Syncytial Virus), ED Bronchitis, No Antibiotic (Adult) Prescriptions: No Action coenzyme Q10 [Co Q-10] 100 mg capsule 100 mg PO DAILY omeprazole 40 mg capsule,delayed release(DR/EC) 40 mg PO BID budesonide-formoterol 80-4.5 mcg/actuation HFA aerosol inhaler 2 puff inhalation BID cyanocobalamin (vitamin B-12) [Vitamin B-12] 1,000 mcg tablet 2,000 mcg PO DAILY cholecalciferol (vitamin D3) 1,250 mcg (50,000 unit) tablet 1,250 mcg PO QWEEK epinephrine [EpiPen] 0.3 mg/0.3 mL auto-injector 0.3 mg IM ONCE PRN (Reason: Allergic Reaction) Rx Instructions: as a single dose; may repeat once omega-3 fatty acids 1,000 mg capsule 1,000 mg PO DAILY nitroglycerin 0.4 mg tablet, sublingual 0.4 mg sublingual Q5-15M PRN (Reason: Chest Pain) Rx Instructions: do not exceed 3 doses per episode iron, carbonyl 45 mg tablet 45 mg PO DAILY pravastatin 80 mg tablet 40 mg PO QHS Calcium 600 with Vitamin D3 1 EACH tablet,chewable 1 ea PO DAILY albuterol sulfate [Ventolin HFA] 90 mcg/actuation HFA aerosol inhaler 2 puff inhalation Q6H PRN (Reason: Wheezing) azithromycin [Zithromax] 250 mg tablet 250 mg PO DAILY 4 Days Qty: 4 0RF Rx Instructions: start on day 2 of therapy prednisone 10 mg tablet 10 mg PO UD Qty: 30 0RF Rx Instructions: Take 4 tablets daily for 3 days, then 3 daily for 3 days, then 2 daily for 3 days, then 1 a day for 3 days doxycycline monohydrate 100 mg capsule 100 mg PO BID Qty: 14 0RF Primary Care Provider: Andry Etienne Referrals: Andry Etienne MD [Primary Care Provider] - 3-5 Days Disposition Disposition: Home, Self Care
--- NOTE | 2023-05-18 12:33 | EKG12_ITS ---
Test Reason : SOB Blood Pressure : / mmHG Vent. Rate : 081 BPM Atrial Rate : 081 BPM P-R Int : 156 ms QRS Dur : 084 ms QT Int : 362 ms P-R-T Axes : 062 014 032 degrees QTc Int : 420 ms Normal sinus rhythm Normal ECG Confirmed by SHRUTHI JAMES, LINDA ([id number]), technical editor JEMMA STACY ([id number]) on 05/19/2023 10:00:57 AM Referred By: Confirmed By:LINDA HAWKINS MD
--- NOTE | 2023-05-18 12:33 | RAD_ITS ---
INDICATION: Cough EXAMINATION/TECHNIQUE: X-RAY - XR Chest 2 Views COMPARISON: Prior study dated: 03/20/2023 FINDINGS: LINES/DEVICES: None. LUNGS: No consolidation, edema or effusion. No pneumothorax. MEDIASTINUM AND CARDIOVASCULAR STRUCTURES: Cardiac silhouette not enlarged. Central airways and mediastinal contour are unremarkable. BONES AND SOFT TISSUES: Unremarkable. RAD/Chest PA and Lateral IMPRESSION: No radiographic evidence of acute cardiopulmonary disease. Electronically Signed: Oscar Kerns MD at 13:23 EST ,
[2023-05-18] MEDS: Ipratropium/Albuterol Sulfate 3 ML AMPUL.NEB INHALATION (12:49)
[2023-05-18 12:50] VITALS: PULSE 84; RESP 17
[2023-05-18 12:58] LABS: Absolute Lymphocyte Count 0.87 X10^3/uL (0.83-4.51); Absolute Neutrophil Count 5.1 X10^3/uL (2.0-7.7); Basophil# 0.03 X10^3/uL; Basophil% 0.5 % (0-1); Hematocrit 37.8 % (40-54); Hemoglobin 13.1 g/dL (13.0-16.5); Lymphocyte # 0.87 X10^3/ul (0.83-4.51); Mean Corp Hgb Conc 34.7 g/dL (32-36); Mean Corpuscular Hgb 30.6 pg (27.0-32.0); Mean Corpuscular Volume 88.3 fL (80-94); Mean Platelet Vol. 8.3 fl (6.2-12.0); Monocyte% 3.2 % (0-10); NRBC Flagged by Analyzer 0 % (0-5); Neutrophil # 5.08 X10^3/uL (2.7-7.7); Neutrophil % 81.8 % (47-70); Platelet Count 259 K/mm3 (150-450); RBC Distribution Width CV 12.9 % (11.6-14.6); RBC Distribution Width SD 41.6 fl (35.1-43.9); Red Blood Count 4.28 M/mm3 (4.6-6.2); White Blood Count 6.2 K/mm3 (4.4-11.0)
[2023-05-18 13:11] LABS: D-Dimer Quantitative (DVT/PE) 0.33 FEU/ug/m (0.27-0.49)
[2023-05-18 13:21] LABS: AST(SGOT) 47 U/L (15-37); Alanine Aminotransfer ALT/SGPT 55 U/L (16-61); Albumin, Serum 3.6 g/dL (3.2-5.0); Alkaline Phosphatase 68 U/L (45-117); Anion Gap 5 (5-15); BUN 10 mg/dL (7-18); BUN/Creat Ratio 10.5 RATIO (10-20); Calcium,Total 9.1 mg/dL (8.5-10.1); Chloride 108 mmol/L (98-107); Creatinine, Serum 0.95 mg/dL (0.70-1.30); EST Glomerular Filtration Rate 84 mL/min (>60); Est Glom Filt Rate - Afr Amer 102 mL/min (>60); Estimated Creatinine Clearance 76.84 ml/min; Globulin 3.5 g/dL (2.2-4.2); Glucose 136 mg/dL (74-106); Potassium 4.1 mmol/L (3.5-5.1); Protein, Total 7.1 g/dL (6.4-8.2); Sodium Level 140 mmol/L (136-145); Troponin-I HS 4 pg/mL (3.0-78.0)
[2023-05-18 14:03] LABS: Bacteria 0 SEEN /hpf (None Seen); Mucous, Urine 0 SEEN /hpf (<or=2+); Red Blood Cells-Urine 0 SEEN /hpf (0-5); White Blood Cells 0 SEEN /hpf (0-5)
[2023-05-18 14:07] LABS: Color, Urine Yellow (Yellow); Glucose, Dipstick Normal (Normal); Ketone-Dipstick Negative (Negative); Leukocyte Esterase-Dipstick Negative /ul (Negative); Nitrite-Dipstick Negative (Negative); Occult Blood-Urine Negative /ul (Negative); Protein-Dipstick Negative (Negative); Specific Gravity, Urine 1.005 (1.002-1.030); Urine Bilirubin Dipstick Negative (Negative); Urine Clarity Clear (Clear); Urine Urobilinogen Normal (Normal); Urine pH 6.5 (5.0 - 8.0)
[2023-05-18 14:14] LABS: Squamous Epithelial Cells - UA 0-5 SEEN /hpf (0-5)
[2023-05-18 14:43] VITALS: BP 147/70; PULSE 82; RESP 12; O2SAT 93
== END 2023-05-18 14:50 | disposition home or self-care (01) ==
PROVIDERS: Emergency Provider Emergency Medicine; PCP Family Medicine; Visit Provider Emergency Medicine
DX: E78.5 Hyperlipidemia, unspecified (principal); B97.4 Respiratory syncytial virus as the cause of diseases classified elsewhere; R03.0 Elevated blood-pressure reading, without diagnosis of hypertension; R06.02 Shortness of breath; J45.909 Unspecified asthma, uncomplicated; G47.33 Obstructive sleep apnea (adult) (pediatric); Z87.891 Personal history of nicotine dependence
CPT/HCPCS: 71046; 80053; 81001; 84484; 85025; 85379; 87631; 93005; 94640; 99284; A4216

== ENCOUNTER → 2023-06-10 | Outpatient (CLI) | payer MEDICARE, SELFPAY ==
[2023-06-10 15:15] LABS: Uric Acid 6.4 mg/dL (3.5-7.2)
== END | disposition home or self-care (01) ==
LOC: LAB 13:55
PROVIDERS: PCP Family Medicine; Referring Provider Orthopaedic Surgery; Visit Provider Orthopaedic Surgery
DX: M79.642 Pain in left hand (principal); M25.532 Pain in left wrist
CPT/HCPCS: 36415; 84550

== ENCOUNTER 2023-09-20 13:00 | Inpatient (IN) | payer MEDICARE, SELFPAY ==
[2023-09-20] VITALS (14 sets, daily range): BP systolic 105–136; BP diastolic 45–74; PULSE 90–126; RESP 18–30; TEMP 36.2–37.4; O2SAT 88–96; BMI 25.3; BMI 25.8
--- NOTE | 2023-09-20 13:18 | RAD_ITS ---
STUDY: XR Chest 1 View 09/20/2023 1:59 PM REASON FOR EXAM: Male, 67 years old. dyspnea COMPARISON: None TECHNIQUE: XR Chest 1 View FINDINGS: There is no demonstrated pleural abnormality. Normal heart size. Normal mediastinum. Normal suyapa. Prominent appearing increased interstitial lung markings. Normal visualized pulmonary arteries. There is atherosclerotic calcification of the aortic arch with tortuosity. There are diffuse degenerative changes of the visualized thoracic spine. There is degenerative osteoarthritis of the bilateral shoulders. There are no acute findings of the upper abdomen. RAD/Chest 1 View (Portable) IMPRESSION: There are no acute findings. Electronically Signed: Berry Ac MD at 14:19 EDT ,
--- NOTE | 2023-09-20 13:20 | EDS_ITS ---
HPI History of Present Illness Chief Complaint: Shortness of Breath Detail of Chief Complaint: Shortness of breath Informant: patient Narrative Narrative: Patient presents to the emergency department complaint shortness of breath for last 5 days. Complains of a cough with some thick green sputum. Describes some chest soreness. Patient has had fever yesterday up to 100.7. Patient was seen 2 days ago by his PCPs office and had negative COVID and RSV testing and had a chest x-ray but no results as of yet. Patient denies recent travel or surgery. Patient does have history of asthma and COPD. He does not wear home O2. [facility] Medical History Anxiety Arthritis Asthma Bilateral carotid artery disease Cardiology follow-up encounter Chronic low back pain CPAP (continuous positive airway pressure) dependence Diverticulosis Former smoker Gastric reflux GERD (gastroesophageal reflux disease) Hiatal hernia High cholesterol History of stress test History of ulceration Hyperlipidemia Injury of back Insomnia Iron deficiency anemia Iron deficiency anemia secondary to inadequate dietary iron intake Low iron Lumbar disc disease Malabsorption syndrome Nonobstructive atherosclerosis of coronary artery [place] treated with BiPAP Peptic ulcer Pulmonary emphysema Sleep apnea Vitamin D deficiency Wears glasses Wears partial dentures Home Medications calcium carbonate 600 mg-vitamin D3 10 mcg (400 unit) chewable tablet (Calcium 600 with Vitamin D3) 1 ea PO DAILY 09/08/16 [History Last Taken Unknown] albuterol sulfate 90 mcg/actuation aerosol inhaler (Ventolin HFA) 2 puff inhalation Q6H PRN Wheezing 10/24/21 [History Last Taken Unknown] budesonide-formoterol HFA 80 mcg-4.5 mcg/actuation aerosol inhaler 2 puff inhalation BID 10/24/21 [History Last Taken 09/02/22] cholecalciferol (vitamin D3) 1,250 mcg (50,000 unit) tablet 1,250 mcg PO QWEEK 10/24/21 [History Last Taken Unknown] cyanocobalamin (vitamin B-12) 1,000 mcg tablet (Vitamin B-12) 2,000 mcg PO DAILY 10/24/21 [History Last Taken Unknown] epinephrine 0.3 mg/0.3 mL injection, auto-injector (EpiPen) 0.3 mg IM ONCE PRN Allergic Reaction 10/24/21 [History Last Taken Unknown] nitroglycerin 0.4 mg sublingual tablet 0.4 mg sublingual Q5-15M PRN Chest Pain 10/24/21 [History Last Taken Unknown] omega-3 fatty acids 1,000 mg capsule 1,000 mg PO DAILY 10/24/21 [History Last Taken Unknown] omeprazole 40 mg capsule,delayed release 40 mg PO BID 10/24/21 [History Last Taken Unknown] coenzyme Q10 100 mg capsule (Co Q-10) 100 mg PO QHS 10/25/21 [History Last Taken Unknown] iron, carbonyl 45 mg tablet 45 mg PO DAILY 04/22/22 [History Last Taken Unknown] pravastatin 80 mg tablet 40 mg PO QHS 10/29/22 [History Last Taken Unknown] benzonatate 200 mg capsule 200 mg PO TID PRN PRN cough 09/20/23 [History Last Taken Unknown] fluticasone fur. 100 mcg-umeclid 62.5 mcg-vilant 25 mcg inhalat.powder (Trelegy Ellipta) 1 ea inhalation DAILY 09/20/23 [History Last Taken Unknown] ipratropium 0.5 mg-albuterol 3 mg (2.5 mg base)/3 mL nebulization soln 3 ml inhalation 09/20/23 [History Last Taken Unknown] Allergy/AdvReac Type Severity Reaction Status Date / Time bee venom protein (honey bee) Allergy Intermediate Hives Verified 09/20/23 13:02 morphine Allergy Intermediate hypotension Verified 09/20/23 13:02 pneumococcal vaccine Allergy Intermediate localized Verified 09/20/23 13:02 swelling acetaminophen Allergy Unknown Verified 09/20/23 13:02 [From Darvocet-N 100] codeine Allergy Unknown Verified 09/20/23 13:02 meperidine HCl [From Demerol] Allergy Unknown Verified 09/20/23 13:02 propoxyphene HCl Allergy Unknown Verified 09/20/23 13:02 [From Darvon] propoxyphene napsylate Allergy Unknown Verified 09/20/23 13:02 [From Darvocet-N 100] atorvastatin [From Lipitor] AdvReac Intermediate leg Verified 09/20/23 13:02 weakness Family History Mother Diabetes CHF (congestive heart failure) Hypertension Colon cancer Father Cancer pancreatic Sister Colon cancer Brother COPD (chronic obstructive pulmonary disease) Diabetes Cancer prostate Surgical History H/O bypass gastrojejunostomy (~2006) History of appendectomy History of back surgery (09/11/15) History of carpal tunnel release History of cholecystectomy (~2002) History of colonoscopy (~10/23/20) History of esophagogastroduodenoscopy (EGD) (~10/23/20) History of gastric bypass History of left heart catheterization (10/28/21) Social History Smoking Status: Former smoker Tobacco: How many years used: 33 how long ago did patient quit smokin08/07/2001 alcohol intake: never substance use type: does not use ROS ROS ED Review of Systems ROS Unobtainable: other Constitutional Constitutional ED: Reports lethargy; Denies chills, fever(s), sweats or weight loss Eyes Eyes: Denies blurry vision, change in vision or diplopia ENT ENT ED: Denies rhinorrhea or sore throat Cardiovascular Cardiovascular: Reports chest pain; Denies orthopnea or racing heartbeat Respiratory/Chest Respiratory/Chest: Reports cough, dyspnea and dyspnea on exertion; Denies orthopnea or sputum Gastrointestinal Gastrointestinal: Denies abdominal pain, diarrhea, nausea or vomiting Genitourinary Genitourinary ED: Denies dysuria, hematuria or urinary frequency Musculoskeletal Musculoskeletal: Denies arthralgias, back pain, myalgias or neck pain Integumentary Denies abscess, Abrasions or rash Neurologic Neurologic: Denies headache(s) or weakness Psychiatric Psychiatric: Denies anxiety, depression or suicidal thoughts Endocrine Endocrinology: Denies polydipsia, polyphagia or polyuria Hematologic/Lymphatic Hematologic/Lymphatic: Denies easy bleeding, easy bruising or lymphadenopathy Allergic/Immunologic Allergic/Immunologic ED: Denies mouth swelling, tongue swelling or urticaria EXAM Physical Exam Const Vital Signs: 09/20/23 13:02 09/20/23 13:05 09/20/23 13:15 Temperature 99.3 F H 99.3 F H Temperature Source Temporal Temporal Pulse Rate 110 H 110 H 107 H Respiratory Rate 22 H 22 H 28 H Respiratory Effort Respiratory Depth Respiratory Pattern Blood Pressure 136/55 H 136/55 H 120/63 Blood Pressure Mean 82 82 82 Pulse Ox 89 89 90 Oxygen Delivery Method Room Air Room Air Nasal Cannula Oxygen Flow Rate (L/min) 2 09/20/23 13:15 09/20/23 13:23 09/20/23 13:30 Temperature Temperature Source Pulse Rate 102 H Respiratory Rate 30 H Respiratory Effort Short of Breath Labored Respiratory Depth Shallow Respiratory Pattern Tachypnea Normal Blood Pressure Blood Pressure Mean Pulse Ox 90 Oxygen Delivery Method Nasal Cannula Nasal Cannula Oxygen Flow Rate (L/min) 2 2 09/20/23 14:05 09/20/23 15:00 Temperature 98.5 F 99.4 F H Temperature Source Temporal Oral Pulse Rate 126 H 115 H Respiratory Rate 21 H 30 H Respiratory Effort Respiratory Depth Respiratory Pattern Blood Pressure 124/58 H 117/50 L Blood Pressure Mean 80 72 Pulse Ox 90 91 Oxygen Delivery Method Nasal Cannula Nasal Cannula Oxygen Flow Rate (L/min) 2 3 Positive well nourished and well developed General Appearance ED: well developed and NAD HEENT Reports TM's clear and moist mucous membranes normocephalic and atraumatic; Negative for trauma or tenderness Tympanic Membrane ED: Yes TM's clear Eyes PERRL and EOMs intact bilaterally General Eye ED: Negative for pale conjunctiva or scleral icterus Neck no lymphadenopathy, supple and no JVD General: Negative for tenderness Chest Wall inspection of chest normal and palpation of chest normal Chest: Negative for tenderness Resp normal respiratory effort and No clear to auscultation bilaterally Resp Narrative: Diminished breath sounds bilaterally with expiratory wheezes bilaterally. Mild tachypnea. No accessory muscle use or retractions. Effort and Inspection: Negative for respiratory distress or pain with movement Auscultation: wheezes; Negative for rhonchi or diminished lung sounds Cardio regular rate, regular rhythm, S1 normal heart sound, S2 normal heart sound and no murmurs Peripheral Pulses: pulses 2+ throughout GI normal to inspection, nondistended, normoactive bowel sounds, soft to palpation, non-tender, non-distended and no masses Back/Spine no CVA tenderness and no thoracic nor lumbar tenderness Extremity normal to inspection General Extremety ED: Negative for edema General Extremity: Negative for edema Neuro oriented x3, CN's II-XII intact bilaterally, no sensory deficits noted and gait normal Sensorium / Orientation: awake, alert, oriented to person, oriented to place and oriented to time Motor Exam: strength 5/5 throughout and strength abnormal Psych mental status grossly normal Skin no rashes or lesions noted and no wounds MDM MDM MDM Narrative Medical decision making narrative: Patient presents with cough dyspnea and fever x 5 days. History of COPD. Normally does not wear home O2. Presents dyspneic, hypoxic, and tachycardic. IV line established. He was given DuoNeb aerosols. Started on Solu-Medrol. IV line established. CBC with differential count of 5.9 with hemoglobin of 12.9 and platelet count 246. Chemistries unremarkable. Troponin normal at 5. EKG obtained arrival shows sinus tachycardia with rate of [address] changes. 1 view chest x-ray obtained I felt may show increased markings right lower lobe and radiology felt it was unremarkable. I did order sputum cultures. Patient was started on Levaquin 750 mg IV given the fever and abnormal sputum and history of COPD and hypoxia. Case will be discussed with hospitalist to evaluate patient for admission. Lab Data Attestation: I reviewed the patient's lab results. Labs: Laboratory Results - last 24 hr 09/20/23 13:28 WBC 5.9 RBC 4.29 L Hgb 12.9 L Hct 38.4 L MCV 89.5 MCH 30.1 MCHC 33.6 RDW Std Deviation 41.8 RDW Coeff of Dari 12.7 Plt Count 246 MPV 9.2 Immature Gran % (Auto) 0.300 Neut % (Auto) 77.0 H Lymph % (Auto) 10.1 L Ward % (Auto) 12.3 H Eos % (Auto) 0.0 Baso % (Auto) 0.3 Absolute Neuts (auto) 4.5 Absolute Lymphs (auto) 0.59 L Nucleated RBC % 0 Sodium 134 L Potassium 3.5 Chloride 96 L Carbon Dioxide 28.0 Anion Gap 10 BUN 14 Creatinine 1.08 Estim Creat Clear Calc 69.72 Est GFR (MDRD) Af Amer 87 Est GFR (MDRD) Non-Af 72 BUN/Creatinine Ratio 13.0 Glucose 125 H Calcium 9.0 Troponin I High Sens 5 Radiography Diagnostic Testing: Clinical Impression(s) from Imaging Studies Chest X-Ray 09/20/23 13:18 IMPRESSION: There are no acute findings. Electronically Signed: Berry Ac MD at 14:19 EDT , 1 view chest x-ray obtained interpreted by myself as increased markings right lower lobe. Radiology felt there was nothing acute. No evidence of pneumothorax. EKG Initial EKG: Attestation: I personally reviewed and interpreted this EKG as follows: Comments: Sinus rhythm with rate of [address] changes Discharge Plan Dx/Rx/DC Orders Clinical Impression: Hypoxemia, Respiratory failure, COPD exacerbation Disposition Disposition: Acute Care Hospital [facility]
[2023-09-20] MEDS: Ipratropium/Albuterol Sulfate 3 ML AMPUL.NEB INHALATION ×3 (13:24→23:13)
[2023-09-20] MEDS: MethylPREDNISolone 125 MG/2 ML Vial IV (13:28)
[2023-09-20] MEDS: Albuterol 2.5 MG/3 ML VIAL.NEB. INHALATION ×3 (13:29)
[2023-09-20] MEDS: 0.9% Normal Saline (1000mL) 1,000 ML 150 ML IV (13:29)
[2023-09-20 14:06] LABS: Absolute Lymphocyte Count 0.59 X10^3/uL (0.83-4.51); Absolute Neutrophil Count 4.5 X10^3/uL (2.0-7.7); Basophil# 0.02 X10^3/uL; Basophil% 0.3 % (0-1); Hematocrit 38.4 % (40-54); Hemoglobin 12.9 g/dL (13.0-16.5); Lymphocyte # 0.59 X10^3/ul (0.83-4.51); Lymphocyte % 10.1 % (19-41); Mean Corp Hgb Conc 33.6 g/dL (32-36); Mean Corpuscular Hgb 30.1 pg (27.0-32.0); Mean Corpuscular Volume 89.5 fL (80-94); Mean Platelet Vol. 9.2 fl (6.2-12.0); Monocyte# 0.72 X10^3/uL; Monocyte% 12.3 % (0-10); NRBC Flagged by Analyzer 0 % (0-5); POSITIVE DIFFERENTIAL YES; Platelet Count 246 K/mm3 (150-450); RBC Distribution Width CV 12.7 % (11.6-14.6); RBC Distribution Width SD 41.8 fl (35.1-43.9); Red Blood Count 4.29 M/mm3 (4.6-6.2); White Blood Count 5.9 K/mm3 (4.4-11.0)
[2023-09-20 14:18] LABS: Anion Gap 10 (5-15); BUN 14 mg/dL (7-18); Chloride 96 mmol/L (98-107); Creatinine, Serum 1.08 mg/dL (0.70-1.30); EST Glomerular Filtration Rate 72 mL/min (>60); Est Glom Filt Rate - Afr Amer 87 mL/min (>60); Estimated Creatinine Clearance 69.72 ml/min; Glucose 125 mg/dL (74-106); Potassium 3.5 mmol/L (3.5-5.1); Sodium Level 134 mmol/L (136-145); Troponin-I HS 5 pg/mL (3.0-78.0)
--- NOTE | 2023-09-20 15:06 | HP.PCM.HOS_ITS ---
HPI - General General Date of Admission: 09/20/23 Date of Service: 09/20/23 Chief Complaint: Worsening productive cough and shortness of breath HPI Narrative TARA CASTILLO, is a 67 M who presented to [facility] ED on 09/20/2023 with worsening productive cough and shortness of breath. Saw patient at bedside in ED, present. Patient was sitting up comfortably in bed, conversing normally, in no acute distress. He was breathing comfortably on 3 L nasal cannula with oxygen saturations in the low to mid 90s. His heart rate was sustaining in the low 100s, sinus tachycardia. Patient has history of COPD with emphysema, follows with Dr. Teri Wiley with pulmonology. Last office visit with her was in July; I was able to view her progress note. Patient was previously a heavy smoker, quit in 2001. Had been on Symbicort for 2 to 3 years with fairly good control of symptoms. However, since March 2023 patient has had a run of infections including COVID, flu and RSV. Dr. Wiley wanted to switch him to Breztri in July but unfortunately insurance would not cover this, so he was started on Trelegy Ellipta as well as Spiriva. Also has short acting albuterol inhaler. Has never had a nebulizer machine at home, though Dr. Wiley recommended that he get this. Patient was feeling better over the past few morgan hs until about 4 to 5 days ago, when he noticed recurrence of cough with thick greenish sputum and worsening shortness of breath. He was using his albuterol inhaler up to 10 times daily with only minimal relief of symptoms. He reports mild fevers and chills over that time. Has had fairly minimal appetite. Otherwise denies any chest pain, abdominal pain or discomfort, nausea/vomiting, lightheadedness or dizziness. Stool and urine output have been relatively normal for him. Vitals in ED with normal BP, low-grade fever to 99.4 F, sinus tachycardia to 110s, respiration rate in the low to mid 20s, oxygen saturations in the low 90s on 3 L nasal cannula at rest. Does not wear oxygen at home, has never required home O2 before. CBC with WBC count 5.9, hemoglobin 12.9 (at baseline), platelet s 246. BMP with sodium 134, potassium 3.5, chloride 96, bicarb 28, creatinine 1.08 (at baseline), otherwise unremarkable. Chest x-ray was nonacute. COVID/flu/RSV panel negative. Was given a breathing treatment in the ED along with IV Solu-Medrol 100 mg and a dose of IV Levaquin. States he had mild to moderate improvement in symptoms with the breathing treatment. Will be admitted for further management. [facility] Medical History Anxiety Arthritis Asthma Bilateral carotid artery disease Cardiology follow-up encounter Chronic low back pain CPAP (continuous positive airway pressure) dependence Diverticulosis Former smoker Gastric reflux GERD (gastroesophageal reflux disease) Hiatal hernia High cholesterol History of stress test History of ulceration Hyperlipidemia Injury of back Insomnia Iron deficiency anemia Iron deficiency anemia secondary to inadequate dietary iron intake Low iron Lumbar disc disease Malabsorption syndrome Nonobstructive atherosclerosis of coronary artery [place] treated with BiPAP Peptic ulcer Pulmonary emphysema Sleep apnea Vitamin D deficiency Wears glasses Wears partial dentures Home Medications calcium carbonate 600 mg-vitamin D3 10 mcg (400 unit) chewable tablet (Calcium 600 with Vitamin D3) 1 ea PO DAILY 09/08/16 [History Last Taken Unknown] albuterol sulfate 90 mcg/actuation aerosol inhaler (Ventolin HFA) 2 puff inhalation Q6H PRN Wheezing 10/24/21 [History Last Taken Unknown] budesonide-formoterol HFA 80 mcg-4.5 mcg/actuation aerosol inhaler 2 puff inhalation BID 10/24/21 [History Last Taken 09/02/22] cholecalciferol (vitamin D3) 1,250 mcg (50,000 unit) tablet 1,250 mcg PO QWEEK 10/24/21 [History Last Taken Unknown] cyanocobalamin (vitamin B-12) 1,000 mcg tablet (Vitamin B-12) 2,000 mcg PO DAILY 10/24/21 [History Last Taken Unknown] epinephrine 0.3 mg/0.3 mL injection, auto-injector (EpiPen) 0.3 mg IM ONCE PRN Allergic Reaction 10/24/21 [History Last Taken Unknown] nitroglycerin 0.4 mg sublingual tablet 0.4 mg sublingual Q5-15M PRN Chest Pain 10/24/21 [History Last Taken Unknown] omega-3 fatty acids 1,000 mg capsule 1,000 mg PO DAILY 10/24/21 [History Last Taken Unknown] omeprazole 40 mg capsule,delayed release 40 mg PO BID 10/24/21 [History Last Taken Unknown] coenzyme Q10 100 mg capsule (Co Q-10) 100 mg PO QHS 10/25/21 [History Last Taken Unknown] iron, carbonyl 45 mg tablet 45 mg PO DAILY 04/22/22 [History Last Taken Unknown] pravastatin 80 mg tablet 40 mg PO QHS 10/29/22 [History Last Taken Unknown] benzonatate 200 mg capsule 200 mg PO TID PRN PRN cough 09/20/23 [History Last Taken Unknown] fluticasone fur. 100 mcg-umeclid 62.5 mcg-vilant 25 mcg inhalat.powder (Trelegy Ellipta) 1 ea inhalation DAILY 09/20/23 [History Last Taken Unknown] ipratropium 0.5 mg-albuterol 3 mg (2.5 mg base)/3 mL nebulization soln 3 ml inhalation 09/20/23 [History Last Taken Unknown] Allergy/AdvReac Type Severity Reaction Status Date / Time bee venom protein (honey bee) Allergy Intermediate Hives Verified 09/20/23 13:02 morphine Allergy Intermediate hypotension Verified 09/20/23 13:02 pneumococcal vaccine Allergy Intermediate localized Verified 09/20/23 13:02 swelling acetaminophen Allergy Unknown Verified 09/20/23 13:02 [From Darvocet-N 100] codeine Allergy Unknown Verified 09/20/23 13:02 meperidine HCl [From Demerol] Allergy Unknown Verified 09/20/23 13:02 propoxyphene HCl Allergy Unknown Verified 09/20/23 13:02 [From Darvon] propoxyphene napsylate Allergy Unknown Verified 09/20/23 13:02 [From Darvocet-N 100] atorvastatin [From Lipitor] AdvReac Intermediate leg Verified 09/20/23 13:02 weakness Family History Mother Diabetes CHF (congestive heart failure) Hypertension Colon cancer Father Cancer pancreatic Sister Colon cancer Brother COPD (chronic obstructive pulmonary disease) Diabetes Cancer prostate Surgical History H/O bypass gastrojejunostomy (~2006) History of appendectomy History of back surgery (09/11/15) History of carpal tunnel release History of cholecystectomy (~2002) History of colonoscopy (~10/23/20) History of esophagogastroduodenoscopy (EGD) (~10/23/20) History of gastric bypass History of left heart catheterization (10/28/21) Social History Smoking Status: Former smoker Tobacco: How many years used: 33 how long ago did patient quit smokin08/07/2001 alcohol intake: never substance use type: does not use ROS Constitutional Constitutional: Reports fatigue, fever(s) and malaise; Denies chills or weakness Cardiovascular Cardiovascular: Reports dyspnea on exertion; Denies chest pain, edema, lightheadedness or rapid heart rate Respiratory/Chest Respiratory/Chest: Reports cough, productive cough, shortness of breath at rest, shortness of breath with exertion and wheezing Gastrointestinal Gastrointestinal: Denies abdominal pain, constipation, diarrhea, nausea or vomiting Genitourinary Genitourinary: Denies dysuria Neurologic Neurologic: Denies dizziness, focal weakness or headache(s) Vital Signs Vital Signs Vital Signs: 09/20/23 13:02 09/20/23 13:05 09/20/23 13:15 Temperature 99.3 F H 99.3 F H Temperature Source Temporal Temporal Pulse Rate 110 H 110 H 107 H Respiratory Rate 22 H 22 H 28 H Respiratory Effort Respiratory Depth Respiratory Pattern Blood Pressure 136/55 H 136/55 H 120/63 Blood Pressure Mean 82 82 82 Pulse Ox 89 89 90 Oxygen Delivery Method Room Air Room Air Nasal Cannula Oxygen Flow Rate (L/min) 2 09/20/23 13:15 09/20/23 13:23 09/20/23 13:30 Temperature Temperature Source Pulse Rate 102 H Respiratory Rate 30 H Respiratory Effort Short of Breath Labored Respiratory Depth Shallow Respiratory Pattern Tachypnea Normal Blood Pressure Blood Pressure Mean Pulse Ox 90 Oxygen Delivery Method Nasal Cannula Nasal Cannula Oxygen Flow Rate (L/min) 2 2 09/20/23 14:05 09/20/23 15:00 Temperature 98.5 F 99.4 F H Temperature Source Temporal Oral Pulse Rate 126 H 115 H Respiratory Rate 21 H 30 H Respiratory Effort Respiratory Depth Respiratory Pattern Blood Pressure 124/58 H 117/50 L Blood Pressure Mean 80 72 Pulse Ox 90 91 Oxygen Delivery Method Nasal Cannula Nasal Cannula Oxygen Flow Rate (L/min) 2 3 Weight Weight: 82.463 kg Body Mass Index (BMI) 25.3 Physical Exam Const alert, oriented x3 and no apparent distress Constitutional Narrative: Pleasant elderly male, mildly fatigued appearing, otherwise sitting up comfortably in bed, conversing normally, in no acute distress. General Appearance: cooperative and comfortable HEENT normocephalic, head/scalp atraumatic, hearing grossly normal bilaterally and nasal mucous membranes and turbinates normal Eyes PERRL, EOMs intact bilaterally and conjunctivae normal Neck full ROM Chest inspection of chest normal Resp Resp Narrative: Breathing comfortably on 3 L nasal cannula at rest with oxygen saturations in the low to mid 90s. Mild wheezing noted in upper airway on left. Diminished breath sounds throughout bilaterally. Cardio no murmurs and peripheral pulses 2+ throughout Cardio Narrative: Sinus tachycardia. GI normal to inspection, nondistended, normoactive bowel sounds, soft to palpation, non-tender and non-distended Back/Spine normal ROM Extremity normal to inspection, full ROM and no pedal edema Skin no rashes or lesions noted Neuro moves all extremities and no focal motor deficits Speech: speech normal Psych mental status grossly normal Results Lab / Micro Data 09/20/23 13:28 09/20/23 13:28 Labs: Laboratory Results - last 24 hr 09/20/23 13:28: WBC 5.9, RBC 4.29 L, Hgb 12.9 L, Hct 38.4 L, MCV 89.5, MCH 30.1, MCHC 33.6, RDW Std Deviation 41.8, RDW Coeff of Dari 12.7, Plt Count 246, MPV 9.2, Immature Gran % (Auto) 0.300, Neut % (Auto) 77.0 H, Lymph % (Auto) 10.1 L, [place] % (Auto) 12.3 H, Eos % (Auto) 0.0, Baso % (Auto) 0.3, Absolute Neuts (auto) 4.5, Absolute Lymphs (auto) 0.59 L, Nucleated RBC % 0, Sodium 134 L, Potassium 3.5, Chloride 96 L, Carbon Dioxide 28.0, Anion Gap 10, BUN 14, Creatinine 1.08, Estim Creat Clear Calc 69.72, Est GFR (MDRD) Af Amer 87, Est GFR (MDRD) Non-Af 72, BUN/Creatinine Ratio 13.0, Glucose 125 H, Calcium 9.0, Troponin I High Sens 5 Micro: Microbiology 09/20/23 13:30 Mucosa - Nose SARS-CoV-2, Influenza & RSV (PCR) - Final Imaging Radiology Impression Chest X-Ray 09/20/23 13:18 IMPRESSION: There are no acute findings. Electronically Signed: Berry Ac MD at 14:19 EDT , Assessment & Plan Assessment/Plan (1) COPD exacerbation: (2) Hypoxemia: PLAN: Plan Patient is a 67-year-old male who presented [facility] ED on 09/08 with worsening productive cough and shortness of breath. 1. Acute exacerbation of COPD with hypoxia, history of COPD/emphysema not on home O2 ? Admit under inpatient status to PCU. Will treat with IV steroids, scheduled DuoNebs and IV Levaquin for now. Continue home long-acting inhalers. COVID/flu/RSV negative. Respiratory PCR panel and sputum culture ordered. Wean supplemental oxygen as able. 2. Mild dehydration ? Reported poor p.o. intake over last several days due to infection with COPD exacerbation as noted above. Given IV fluid resuscitation in the ED. Encouraged p.o. intake as able. Follow-up a.m. labs. 3. Mild anemia of chronic disease ? Hemoglobin 12.9 on admit, at baseline. No anemia labs noted for the past few years. Iron studies obtained, showed low iron but elevated ferritin at 500 consistent with anemia of chronic disease. Follow-up a.m. CBC. Chronic medical conditions: ? Former tobacco abuse: Former heavy smoker, quit in 2001. Encouraged continued cessation. ? History of gastric bypass surgery in 2006 ? Hyperlipidemia: Continue home statin. ? GERD: Continue home PPI. DVT prophylaxis: Lovenox CODE STATUS: Full code, verified Expected disposition: Home, 2 to 3 days Total clinical time spent by myself addressing the patient's medical issues, reviewing all the data, and collaborating with patient's care team: 55 minutes. Charges/Coding Visit Charges Inpatient E&M: 34046 Init Hosp L2
[2023-09-20] MEDS: levoFLOXacin IV 750 MG/150 ML BAG 100 MG IV (15:14)
[2023-09-20] MEDS: Acetaminophen 500 MG Tablet 1000 MG PO (15:15)
--- NOTE | 2023-09-20 15:26 | NURSING ---
PCU MOSTELLER RESP FAILURE, HYPOXEMIA, COPD EXAC
[2023-09-20 16:32] LABS: Ferritin 500 ng/mL (26-388); Iron 11 ug/dL (65-175); Iron Binding Capacity,Total 225 ug/dL (250-450); PERCENT IRON SATURATION 4.9 % (15.0-55.0)
--- NOTE | 2023-09-20 19:05 | CPS ---
Applied O2 on pt at 3 lpm.
[2023-09-20] MEDS: Pravastatin 40 MG Tablet PO (21:15)
[2023-09-20] MEDS: Pantoprazole Sodium 40 MG Tablet PO (21:15)
[2023-09-20] MEDS: guaiFENesin 600 MG Tablet PO (21:15)
[2023-09-21] VITALS (11 sets, daily range): BP systolic 117–145; BP diastolic 54–66; PULSE 82–99; RESP 16–20; TEMP 36.1–36.6; O2SAT 93–95
[2023-09-21] MEDS: Ipratropium/Albuterol Sulfate 3 ML AMPUL.NEB INHALATION ×5 (03:40→20:19)
[2023-09-21] MEDS: 0.9% Saline Lock 10 ML Syringe IV ×2 (05:06→21:29)
[2023-09-21 06:46] LABS: Hematocrit 32.5 % (40-54); Hemoglobin 11.1 g/dL (13.0-16.5); Mean Corp Hgb Conc 34.2 g/dL (32-36); Mean Corpuscular Hgb 30.3 pg (27.0-32.0); Mean Corpuscular Volume 88.8 fL (80-94); Mean Platelet Vol. 9.3 fl (6.2-12.0); Platelet Count 256 K/mm3 (150-450); RBC Distribution Width CV 12.7 % (11.6-14.6); RBC Distribution Width SD 41.4 fl (35.1-43.9); Red Blood Count 3.66 M/mm3 (4.6-6.2); White Blood Count 5.6 K/mm3 (4.4-11.0)
[2023-09-21 07:17] LABS: Anion Gap 7 (5-15); BUN 14 mg/dL (7-18); BUN/Creat Ratio 13.5 RATIO (10-20); Calcium,Total 8.8 mg/dL (8.5-10.1); Chloride 101 mmol/L (98-107); Creatinine, Serum 1.04 mg/dL (0.70-1.30); EST Glomerular Filtration Rate 75 mL/min (>60); Est Glom Filt Rate - Afr Amer 91 mL/min (>60); Estimated Creatinine Clearance 70.19 ml/min; Glucose 274 mg/dL (74-106); Potassium 3.2 mmol/L (3.5-5.1); Sodium Level 134 mmol/L (136-145)
[2023-09-21] MEDS: Pantoprazole Sodium 40 MG Tablet PO ×2 (09:45→21:29)
[2023-09-21] MEDS: Cyanocobalamin 500 MCG Tablet 2000 MCG PO (09:45)
[2023-09-21] MEDS: Calcium Carb/Vitamin D 1 TABLET Tablet PO (09:45)
[2023-09-21] MEDS: Enoxaparin 40 MG/0.4 ML Syringe SC (09:45)
[2023-09-21] MEDS: guaiFENesin 600 MG Tablet PO ×2 (09:45→21:29)
[2023-09-21] MEDS: levoFLOXacin IV 750 MG/150 ML BAG 100 MG IV (09:46)
--- NOTE | 2023-09-21 11:47 | CASEMGMT ---
JURGEN VARGAS Assessment Face to Face with patient for initial transition planning/care coordination assessment. JURGEN VARGAS introduced self and role at [facility], pt voices understanding. Pt is A&Ox4 and is resting comfortably in bed and is calm. Pt is currently getting a breathing treatment and the pt is at bedside. Care providers, pharmacy, and demographics verified. Admitting dx: COPD Exacerbation PCP: Andry Etienne Specialists: Teri Wiley (Pulmonary), Alesia (Pulmonary) Preferred Pharmacy: [facility] Insurance: [employer] [facility] Prescription Benefit: Yes LNOK: Sola Arellano (W) Living Arrangements: Pt lives with his in a single story home with 2 steps to enter ADLs/IADs: States ind Transportation: Self, W DME: [facility]. Cane. BP Cuff. Shower GB and chair. Pt states that he wears a ResMed BiPAP at night with no additional oxygen bleed through. HHC/SNF: Denies History Pt?s goal: Return home Plan: TBD. PT/OT evals are pending. Pt states that he wishes to return home once medically ready. Pt denies SNF at this time. Pt states that he may be interested in HHC or OP therapy if he qualifies. CM to follow pt progression in the hospital as well as potential home oxygen needs. Bry Roy RN, CM
[2023-09-21] MEDS: Potassium Chloride Oral Tablet 20 MEQ 40 MEQ PO (14:33)
--- NOTE | 2023-09-21 14:53 | CHAPLAIN ---
Type of Pastoral Visit _x__ Initial Visit ___ Follow-up Visit ___ On-call Visit ___ General Patient Visit ___ Spiritual Assessment ___ Family Conference ___ Bereavement ___ Rapid Response ___ Code Blue ___ Other (describe below) Pastoral Care Referral From _x__ Patient ___ Family ___ Nurse ___ Physician ___ Physical Therapy Aide ___ Lead Producer ___ Other (describe below) Sacrament/Intervention _x__ Active listening ___ Anointing ___ Confucianist ___ Bereavement ___ Communion _x__ Radha exploration ___ ___ Life review _x_ Prayer ___ Reconciliation ___ Sacrament of Sick _x__ Supportive presence ___ Wedding ___ Other (describe below) Pastoral Comments patient responds with humor on questions asked of him; spouse is with him and she reports on their christianity and active participation there; time to listen and offer support and prayer given
--- NOTE | 2023-09-21 19:04 | PCM.PN.HOSP ---
Reason for Visit Reason for Visit: Diagnoses Chronic obstructive pulmonary disease with (acute) exacerbation (09/20/23) Hypoxemia (09/20/23) Subjective Subjective Patient was seen and examined today, he is currently on nasal cannula oxygen at 4 L and appears comfortable. Patient was positive for parainfluenza 3 and RSV B, patient does not have oxygen at home. He does have a history of COPD and he sees Dr. Wiley from the [facility]. Objective Data Objective Data Vital Signs: Vital Signs Temp Pulse Resp BP Pulse Ox O2 Del Method O2 Flow Rate 97.4 F L 97 20 H 122/58 H 94 Nasal Cannula 4 09/21/23 17:33 09/21/23 17:33 09/21/23 17:33 09/21/23 17:33 09/21/23 17:33 09/21/23 17:33 09/21/23 17:33 Oxygen Flow Rate (L/min) 4 Oxygen Delivery Method Nasal Cannula Weight: 81.783 kg Body Mass Index (BMI) 25.8 Intake & Output: Intake and Output for Last 24 Hours 09/19/23 09/20/23 09/21/23 23:59 23:59 23:59 Intake Total 1090 / 1090 930 / 930 Output Total 900 / 900 Balance 1090 / 590 30 / 30 Lab / Micro Data 09/21/23 05:20 09/21/23 05:20 Labs: Laboratory Results - last 24 hr 09/20/23 16:05: Folate 33.40 09/21/23 05:20: WBC 5.6, RBC 3.66 L, Hgb 11.1 L, Hct 32.5 L, MCV 88.8, MCH 30.3, MCHC 34.2, RDW Std Deviation 41.4, RDW Coeff of Dari 12.7, Plt Count 256, MPV 9.3, Sodium 134 L, Potassium 3.2 L, Chloride 101, Carbon Dioxide 26.0, Anion Gap 7, BUN 14, Creatinine 1.04, Estim Creat Clear Calc 70.19, Est GFR (MDRD) Af Amer 91, Est GFR (MDRD) Non-Af 75, BUN/Creatinine Ratio 13.5, Glucose 274 H, Calcium 8.8 Micro: Microbiology 09/20/23 16:09 Sputum, Expectorated/Coughed Gram Stain - Final 09/20/23 17:20 Mucosa - Nasopharyngeal Respiratory Panel (PCR) - Final Parainfluenza 3 RSV B 09/20/23 13:30 Mucosa - Nose SARS-CoV-2, Influenza & RSV (PCR) - Final Physical Exam Const alert, oriented x3 and no apparent distress General Appearance: cooperative, well kempt and well developed Orientation / Consciousness: awake, oriented to person, oriented to place and oriented to time HEENT normocephalic and moist oral mucous membranes Eyes PERRL, EOMs intact bilaterally and conjunctivae normal Neck supple, no JVD, thyroid normal and no carotid bruits General: trachea midline Resp normal respiratory effort, no retractions, no use of accessory muscles and clear to auscultation bilaterally Auscultation: Negative for rales, rhonchi or wheezes Cardio regular rate, regular rhythm, S1 normal heart sound, S2 normal heart sound, no murmurs, no rub and no gallops GI normal to inspection, nondistended, normoactive bowel sounds, soft to palpation, non-tender and non-distended Extremity no clubbing, cyanosis or edema Skin no rashes or lesions noted General Skin Exam: no breakdown Neuro oriented x3, CN's II-XII intact bilaterally, no focal motor deficits and no sensory deficits noted Sensorium / Orientation: awake and alert Speech: speech normal Psych affect normal Assessment & Plan Assessment/Plan (1) COPD exacerbation: PLAN: Plan 1. Acute exacerbation of COPD secondary to parainfluenza 3 and RSV B pneumonitis-patient remains on IV corticosteroids for now, he is also on levofloxacin for now-when his respiratory culture results and if it is negative the antibiotics will be stopped. #2 acute hypoxia secondary to #1-patient's pulse ox will be monitored, oxygen will be adjusted as needed #3 hypokalemia-patient was given oral potassium today #4 hyperlipidemia-patient is on Pravachol Total clinical time spent by myself addressing the patient's medical issues, reviewing all of his data, and collaborating with patient's care team: 35 minutes Charges/Coding Visit Charges Inpatient E&M: 47506 Subs Hosp L2
[2023-09-21 19:18] LABS: Vitamin B12 1747 pg/mL (211-911)
[2023-09-21] MEDS: Pravastatin 40 MG Tablet PO (21:29)
[2023-09-22] VITALS (12 sets, daily range): BP systolic 120–129; BP diastolic 59–86; PULSE 84–98; RESP 16–22; TEMP 36.1–36.5; O2SAT 92–97
[2023-09-22] MEDS: Sodium Chloride 0.65% 1 SPRAY SPRAY.BTL 2 SPRAY NASAL (01:55)
[2023-09-22] MEDS: 0.9% Saline Lock 10 ML Syringe IV ×3 (05:42→13:07)
[2023-09-22] MEDS: Ipratropium/Albuterol Sulfate 3 ML AMPUL.NEB INHALATION ×4 (06:58→20:10)
[2023-09-22] MEDS: Calcium Carb/Vitamin D 1 TABLET Tablet PO (10:08)
[2023-09-22] MEDS: Cyanocobalamin 500 MCG Tablet 2000 MCG PO (10:09)
[2023-09-22] MEDS: Enoxaparin 40 MG/0.4 ML Syringe SC (10:09)
[2023-09-22] MEDS: Pantoprazole Sodium 40 MG Tablet PO ×2 (10:09→22:30)
[2023-09-22] MEDS: levoFLOXacin IV 750 MG/150 ML BAG 100 MG IV (10:09)
[2023-09-22] MEDS: guaiFENesin 600 MG Tablet PO ×2 (10:20→22:30)
--- NOTE | 2023-09-22 19:59 | PCM.PN.HOSP ---
Reason for Visit Reason for Visit: Diagnoses Chronic obstructive pulmonary disease with (acute) exacerbation (09/20/23) Hypoxemia (09/20/23) Subjective Subjective Patient was seen and examined today, he is on low-flow oxygen via nasal cannula at this time. Objective Data Objective Data Vital Signs: Vital Signs Temp Pulse Resp BP Pulse Ox O2 Del Method O2 Flow Rate 97.7 F L 97 16 129/86 H 93 Nasal Cannula 1 09/22/23 18:00 09/22/23 18:00 09/22/23 18:00 09/22/23 18:00 09/22/23 18:00 09/22/23 18:00 09/22/23 18:00 FiO2 94 09/21/23 21:49 Oxygen Flow Rate (L/min) 1 Oxygen Delivery Method Nasal Cannula Weight: 81.783 kg Body Mass Index (BMI) 25.8 Intake & Output: Intake and Output for Last 24 Hours 09/20/23 09/21/23 09/22/23 23:59 23:59 23:59 Intake Total 1090 / 1090 1709 / 2009 2550 / 2550 Output Total 900 / 900 Balance 1090 / 590 810 / 1110 2550 / 2550 Lab / Micro Data 09/21/23 05:20 09/21/23 05:20 Micro: Microbiology 09/20/23 13:25 Blood Culture (Wb) - No Site/Description Given Blood Culture - Preliminary No growth in 48 hours. 09/20/23 16:09 Sputum, Expectorated/Coughed Gram Stain - Final 09/20/23 16:09 Sputum, Expectorated/Coughed Respiratory Culture - Final 09/20/23 17:20 Mucosa - Nasopharyngeal Respiratory Panel (PCR) - Final Parainfluenza 3 RSV B 09/20/23 13:30 Mucosa - Nose SARS-CoV-2, Influenza & RSV (PCR) - Final Physical Exam Narrative alert, oriented x3 and no apparent distress General Appearance: cooperative, well kempt and well developed Orientation / Consciousness: awake, oriented to person, oriented to place and oriented to time HEENT normocephalic and moist oral mucous membranes Eyes PERRL, EOMs intact bilaterally and conjunctivae normal Neck supple, no JVD, thyroid normal and no carotid bruits General: trachea midline Resp normal respiratory effort, no retractions, no use of accessory muscles and clear to auscultation bilaterally Auscultation: Negative for rales, rhonchi or wheezes Cardio regular rate, regular rhythm, S1 normal heart sound, S2 normal heart sound, no murmurs, no rub and no gallops GI normal to inspection, nondistended, normoactive bowel sounds, soft to palpation, non-tender and non-distended Extremity no clubbing, cyanosis or edema Skin no rashes or lesions noted General Skin Exam: no breakdown Neuro oriented x3, CN's II-XII intact bilaterally, no focal motor deficits and no sensory deficits noted Sensorium / Orientation: awake and alert Speech: speech normal Psych affect normal Assessment & Plan Assessment/Plan (1) COPD exacerbation: PLAN: Plan 1. Acute exacerbation of COPD secondary to parainfluenza 3 and RSV B pneumonitis-patient remains on IV corticosteroids for now, patient's Levaquin will be discontinued-his sputum culture grew out only normal respiratory christophe. #2 acute hypoxia secondary to #1-patient's pulse ox will be monitored, oxygen will be adjusted as needed #3 hypokalemia-patient was given oral potassium today #4 hyperlipidemia-patient is on Pravachol Total clinical time spent by myself addressing the patient's medical issues, reviewing all of his data, and collaborating with patient's care team: 35 minutes Charges/Coding Visit Charges Inpatient E&M: 86927 Subs Hosp L2
[2023-09-22] MEDS: Pravastatin 40 MG Tablet PO (22:30)
[2023-09-23 02:05] VITALS: PULSE 78; RESP 16; O2SAT 94
[2023-09-23 03:21] VITALS: BP 125/70; PULSE 79; RESP 18; TEMP 36.3; O2SAT 94
[2023-09-23 07:15] VITALS: PULSE 87; RESP 20; O2SAT 96
[2023-09-23] MEDS: Ipratropium/Albuterol Sulfate 3 ML AMPUL.NEB INHALATION ×2 (07:15→10:55)
[2023-09-23 08:49] VITALS: BP 110/55; PULSE 92; RESP 16; TEMP 36.6; O2SAT 92
[2023-09-23] MEDS: Pantoprazole Sodium 40 MG Tablet PO (08:57)
[2023-09-23] MEDS: Cyanocobalamin 500 MCG Tablet 2000 MCG PO (08:57)
[2023-09-23] MEDS: guaiFENesin 600 MG Tablet PO (08:57)
[2023-09-23] MEDS: Calcium Carb/Vitamin D 1 TABLET Tablet PO (08:57)
[2023-09-23] MEDS: Enoxaparin 40 MG/0.4 ML Syringe SC (08:58)
[2023-09-23 09:13] VITALS: O2SAT 89; O2SAT 94
--- NOTE | 2023-09-23 09:36 | DCINST_ITS ---
Discharge Instructions Diet Discharge Diet: No restrictions Activity Discharge Activity: Return to Normal Activity Weight Bearing Status: Full weight bearing Follow Up Care Test Results: Test results from this visit will be discussed in further detail at your follow- up appointment, if applicable. Discharge Plan Admission Admit Date/Time: 09/20/23 15:07 Primary Reason for Your Visit: parainfluenza infection, copd exacerbation Attending Provider: Tao Urena Primary Care Provider: Andry Etienne Consulting Providers: Dutch Garnett Discharge Orders/Prescriptions Prescriptions: New prednisone 20 mg tablet 40 mg PO DAILY Qty: 11 0RF Rx Instructions: 40 mg daily for 3 days, then 20 mg daily x 5 days, then discontinue Continued coenzyme Q10 [Co Q-10] 100 mg capsule 100 mg PO QHS omeprazole 40 mg capsule,delayed release(DR/EC) 40 mg PO BID budesonide-formoterol 80-4.5 mcg/actuation HFA aerosol inhaler 2 puff inhalation BID cyanocobalamin (vitamin B-12) [Vitamin B-12] 1,000 mcg tablet 2,000 mcg PO DAILY cholecalciferol (vitamin D3) 1,250 mcg (50,000 unit) tablet 1,250 mcg PO QWEEK epinephrine [EpiPen] 0.3 mg/0.3 mL auto-injector 0.3 mg IM ONCE PRN (Reason: Allergic Reaction) Rx Instructions: as a single dose; may repeat once omega-3 fatty acids 1,000 mg capsule 1,000 mg PO DAILY nitroglycerin 0.4 mg tablet, sublingual 0.4 mg sublingual Q5-15M PRN (Reason: Chest Pain) Rx Instructions: do not exceed 3 doses per episode iron, carbonyl 45 mg tablet 45 mg PO DAILY pravastatin 80 mg tablet 40 mg PO QHS Calcium 600 with Vitamin D3 1 EACH tablet,chewable 1 ea PO DAILY albuterol sulfate [Ventolin HFA] 90 mcg/actuation HFA aerosol inhaler 2 puff inhalation Q6H PRN (Reason: Wheezing) benzonatate 200 mg capsule 200 mg PO TID PRN PRN (Reason: cough) ipratropium-albuterol 0.5 mg-3 mg(2.5 mg base)/3 mL solution for nebulization 3 ml inhalation Q4H PRN (Reason: sob) Trelegy Ellipta 100-62.5-25 mcg blister with device 1 ea inhalation DAILY Referrals / Follow Up: Andry Etienne MD [Primary Care Provider] - Disposition Disposition (needs filled in before D/C Order can be placed): Home, Self Care
--- NOTE | 2023-09-23 09:42 | PCM.DC.SUM ---
Providers Date of Admission: 09/20/23 Date of Discharge: 09/23/23 Primary Care Physician: Dr. Andry Etienne MD Reason For Visit: COPD EXACERBATION Diagnosis Discharge Diagnosis (1) COPD exacerbation: Status: Chronic Code(s): J44.1 - Chronic obstructive pulmonary disease with (acute) exacerbation Plan 1. Acute exacerbation of COPD secondary to parainfluenza 3 and RSV B pneumonitis-patient remains on IV corticosteroids for now, patient's Levaquin will be discontinued-his sputum culture grew out only normal respiratory christophe. #2 acute hypoxia secondary to #1-patient's pulse ox will be monitored, oxygen will be adjusted as needed #3 hypokalemia-patient was given oral potassium today #4 hyperlipidemia-patient is on Pravachol Total clinical time spent by myself addressing the patient's medical issues, reviewing all of his data, and collaborating with patient's care team: 35 minutes Medications at Discharge Home Medications calcium carbonate 600 mg-vitamin D3 10 mcg (400 unit) chewable tablet (Calcium 600 with Vitamin D3) 1 ea PO DAILY vitamin 09/08/16 albuterol sulfate 90 mcg/actuation aerosol inhaler (Ventolin HFA) 2 puff inhalation Q6H PRN Wheezing 10/24/21 budesonide-formoterol HFA 80 mcg-4.5 mcg/actuation aerosol inhaler 2 puff inhalation BID breathing 10/24/21 cholecalciferol (vitamin D3) 1,250 mcg (50,000 unit) tablet 1,250 mcg PO QWEEK vitamin 10/24/21 cyanocobalamin (vitamin B-12) 1,000 mcg tablet (Vitamin B-12) 2,000 mcg PO DAILY vitamin 10/24/21 epinephrine 0.3 mg/0.3 mL injection, auto-injector (EpiPen) 0.3 mg IM ONCE PRN Allergic Reaction 10/24/21 nitroglycerin 0.4 mg sublingual tablet 0.4 mg sublingual Q5-15M PRN Chest Pain 10/24/21 omega-3 fatty acids 1,000 mg capsule 1,000 mg PO DAILY supplement 10/24/21 omeprazole 40 mg capsule,delayed release 40 mg PO BID reflux 10/24/21 coenzyme Q10 100 mg capsule (Co Q-10) 100 mg PO QHS supplement 10/25/21 iron, carbonyl 45 mg tablet 45 mg PO DAILY supplement 04/22/22 pravastatin 80 mg tablet 40 mg PO QHS cholesterol 10/29/22 benzonatate 200 mg capsule 200 mg PO TID PRN PRN cough 09/20/23 fluticasone fur. 100 mcg-umeclid 62.5 mcg-vilant 25 mcg inhalat.powder (Trelegy Ellipta) 1 ea inhalation DAILY breathing 09/20/23 ipratropium 0.5 mg-albuterol 3 mg (2.5 mg base)/3 mL nebulization soln 3 ml inhalation Q4H PRN sob 09/20/23 prednisone 20 mg tablet 40 mg (2 x 20 mg) PO DAILY #11 tabs 09/23/23 Hospital Course Operations None Procedures None Summary of Care Provided Minutes Spent on Discharge: 32 Hospital Course: This 67-year-old white male was seen in the emergency room at [facility] with complaints of shortness of breath x 5 days, patient also complained of cough productive of green sputum. Patient also stated he ran a fever at home. Patient was seen in his PCPs office 2 days prior and had a negative COVID and RSV testing. Patient has a history of COPD and asthma but he does not wear home O2. Labs obtained in the emergency room showed a normal white blood cell count, chemistry panel was unremarkable, chest x-ray showed no acute findings. Patient was given DuoNeb aerosols and IV Solu-Medrol was administered, patient was given a dose of IV Levaquin due to his history of abnormal sputum recently and his history of COPD. Patient required nasal cannula oxygen to maintain his pulse ox above 90%. Patient was admitted to PCU for exacerbation of COPD, IV corticosteroids were continued and aerosol treatments were continued, pulse ox was monitored, respiratory panel was positive for parainfluenza 3 and RSV B. Patient was given supplemental potassium for low potassium during his hospitalization. Patient improved during his hospitalization and he was eventually weaned off oxygen. On 09/23/2023, patient was seen and examined: On examination he appeared in good health and spirits. Vital signs as documented. Skin warm and dry and without overt rashes. Neck without JVD, neck was supple, trachea midline, thyroid was normal. Lungs clear bilaterally, normal air movement was noted. Heart exam notable for regular rhythm, normal sounds and absence of murmurs, rubs or gallops. Abdomen unremarkable and without evidence of organomegaly, masses, or abdominal aortic enlargement. Bowel sounds are present, abdomen is not distended. Extremities nonedematous, no cyanosis was noted, no clubbing was noted. Neuro: Cranial nerves II through XII are grossly intact, no focal motor deficits were noted, sensation to light touch and pinprick intact, motor exam 5/5 throughout. Psych: Patient is alert and oriented x3, he does not appear anxious or depressed, he does not appear agitated. Patient was discharged home in stable condition on 09/23/2023. Weight / BMI Weight Weight: 81.783 kg Body Mass Index (BMI) 25.8 ABG / Lab / Microbiology Data 09/21/23 05:20 09/21/23 05:20 Microbiology: Microbiology 09/20/23 13:25 Blood Culture (Wb) - No Site/Description Given Blood Culture - Preliminary No growth in 48 hours. 09/20/23 16:09 Sputum, Expectorated/Coughed Gram Stain - Final 09/20/23 16:09 Sputum, Expectorated/Coughed Respiratory Culture - Final 09/20/23 17:20 Mucosa - Nasopharyngeal Respiratory Panel (PCR) - Final Parainfluenza 3 RSV B 09/20/23 13:30 Mucosa - Nose SARS-CoV-2, Influenza & RSV (PCR) - Final D/C Instructions Discharge Diet: No restrictions Weight Bearing Status: Full weight bearing Meaningful Use Info Meaningful Use Meaningful Use Diagnoses (Choose all that apply): None applicable Ischemic Stroke Statin Dosing Therapy Reference: STATIN DOSE THERAPY REFERENCE: * Patients > 75 years receive moderate or high dose statin therapy. * Patients 75 years or YOUNGER should receive HIGH intensity statin dose unless contraindicated. You will be required to document reason for non-treatment if statin daily dose does not meet guidelines. HIGH DOSE STATIN THERAPY DAILY Atorvastatin > than or = to 40 mg Rosuvastatin > than or = to 20 mg Amlodipine + Atorvastatin > than or = to 2.5/40 mg Ezetimibe + Simvastatin 10/80 mg Simvastatin 80mg Discharge Plan Admission Admit Date/Time: 09/20/23 15:07 Primary Reason for Your Visit: parainfluenza infection, copd exacerbation Attending Provider: Tao Urena Primary Care Provider: Andry Etienne Consulting Providers: Dutch Garnett Discharge Orders/Prescriptions Prescriptions: New prednisone 20 mg tablet 40 mg PO DAILY Qty: 11 0RF Rx Instructions: 40 mg daily for 3 days, then 20 mg daily x 5 days, then discontinue Continued coenzyme Q10 [Co Q-10] 100 mg capsule 100 mg PO QHS omeprazole 40 mg capsule,delayed release(DR/EC) 40 mg PO BID budesonide-formoterol 80-4.5 mcg/actuation HFA aerosol inhaler 2 puff inhalation BID cyanocobalamin (vitamin B-12) [Vitamin B-12] 1,000 mcg tablet 2,000 mcg PO DAILY cholecalciferol (vitamin D3) 1,250 mcg (50,000 unit) tablet 1,250 mcg PO QWEEK epinephrine [EpiPen] 0.3 mg/0.3 mL auto-injector 0.3 mg IM ONCE PRN (Reason: Allergic Reaction) Rx Instructions: as a single dose; may repeat once omega-3 fatty acids 1,000 mg capsule 1,000 mg PO DAILY nitroglycerin 0.4 mg tablet, sublingual 0.4 mg sublingual Q5-15M PRN (Reason: Chest Pain) Rx Instructions: do not exceed 3 doses per episode iron, carbonyl 45 mg tablet 45 mg PO DAILY pravastatin 80 mg tablet 40 mg PO QHS Calcium 600 with Vitamin D3 1 EACH tablet,chewable 1 ea PO DAILY albuterol sulfate [Ventolin HFA] 90 mcg/actuation HFA aerosol inhaler 2 puff inhalation Q6H PRN (Reason: Wheezing) benzonatate 200 mg capsule 200 mg PO TID PRN PRN (Reason: cough) ipratropium-albuterol 0.5 mg-3 mg(2.5 mg base)/3 mL solution for nebulization 3 ml inhalation Q4H PRN (Reason: sob) Trelegy Ellipta 100-62.5-25 mcg blister with device 1 ea inhalation DAILY Referrals / Follow Up: Andry Etienne MD [Primary Care Provider] - Disposition Disposition (needs filled in before D/C Order can be placed): Home, Self Care Charges/Coding Visit Charges Inpatient E&M: 63955 Disch Hosp >30min
--- NOTE | 2023-09-23 10:26 | CASEMGMT ---
Patient has order for discharge. RN CM in to discuss needs at discharge. Patient denies needs or help at discharge. Patient had no further questions or concerns.
--- NOTE | 2023-09-23 10:28 | PHA.DC_ITS ---
Pharmacy [facility] has performed discharge medication reconciliation and counseling for this patient. 1. PREDNISONE 40MG PO DAILYCM X 3 DAYS, THEN 20MG X 5 DAYS The patient's discharge medication list was reviewed for discrepancies and discrepancies were resolved. The patient was counseled on the following discharge medications and changes in medications for homegoing were reviewed. The Reason for Use, instructions for use, and potential side effects were reviewed for all new medications. The patient's questions regarding all of their medications were answered. The patient was able to verbally demonstrate an understanding of their discharge medications. Medications at Discharge Home Medications calcium carbonate 600 mg-vitamin D3 10 mcg (400 unit) chewable tablet (Calcium 600 with Vitamin D3) 1 ea PO DAILY vitamin 09/08/16 albuterol sulfate 90 mcg/actuation aerosol inhaler (Ventolin HFA) 2 puff inhalation Q6H PRN Wheezing 10/24/21 budesonide-formoterol HFA 80 mcg-4.5 mcg/actuation aerosol inhaler 2 puff inhalation BID breathing 10/24/21 cholecalciferol (vitamin D3) 1,250 mcg (50,000 unit) tablet 1,250 mcg PO QWEEK vitamin 10/24/21 cyanocobalamin (vitamin B-12) 1,000 mcg tablet (Vitamin B-12) 2,000 mcg PO DAILY vitamin 10/24/21 epinephrine 0.3 mg/0.3 mL injection, auto-injector (EpiPen) 0.3 mg IM ONCE PRN Allergic Reaction 10/24/21 nitroglycerin 0.4 mg sublingual tablet 0.4 mg sublingual Q5-15M PRN Chest Pain 10/24/21 omega-3 fatty acids 1,000 mg capsule 1,000 mg PO DAILY supplement 10/24/21 omeprazole 40 mg capsule,delayed release 40 mg PO BID reflux 10/24/21 coenzyme Q10 100 mg capsule (Co Q-10) 100 mg PO QHS supplement 10/25/21 iron, carbonyl 45 mg tablet 45 mg PO DAILY supplement 04/22/22 pravastatin 80 mg tablet 40 mg PO QHS cholesterol 10/29/22 benzonatate 200 mg capsule 200 mg PO TID PRN PRN cough 09/20/23 fluticasone fur. 100 mcg-umeclid 62.5 mcg-vilant 25 mcg inhalat.powder (Trelegy Ellipta) 1 ea inhalation DAILY breathing 09/20/23 ipratropium 0.5 mg-albuterol 3 mg (2.5 mg base)/3 mL nebulization soln 3 ml inhalation Q4H PRN sob 09/20/23 prednisone 20 mg tablet 40 mg (2 x 20 mg) PO DAILY #11 tabs 09/23/23
[2023-09-23 10:55] VITALS: PULSE 88; RESP 20
== END 2023-09-23 12:30 | disposition home or self-care (01) | DRG 190 ==
LOC: ED 15:15 → PCU 15:34
PROVIDERS: Admitting Provider Hospitalist; Emergency Provider Emergency Medicine; PCP Family Medicine; Visit Provider Internal Medicine
DX: J44.1 Chronic obstructive pulmonary disease with (acute) exacerbation (principal); J12.2 Parainfluenza virus pneumonia; J12.1 Respiratory syncytial virus pneumonia; D50.8 Other iron deficiency anemias; E78.00 Pure hypercholesterolemia, unspecified; E87.6 Hypokalemia; K21.9 Gastro-esophageal reflux disease without esophagitis; R09.02 Hypoxemia; Z79.51 Long term (current) use of inhaled steroids; Z79.899 Other long term (current) drug therapy; Z86.16 Personal history of COVID-19; Z87.891 Personal history of nicotine dependence
CPT/HCPCS: 36415; 71045; 80048; 82607; 82728; 82746; 83540; 83550; 84484; 85025; 85027; 87040; 87070; 87205; 87631; 87633; 93005; 94002; 94640; 94668; 97166; 97535; 99285; J7050; A4216

== ENCOUNTER 2024-03-29 02:31 | Emergency (ER) | payer MEDICARE, SELFPAY ==
[2024-03-29 02:33] VITALS: BP 130/67; PULSE 95; RESP 18; TEMP 36.5; O2SAT 96; BMI 26.2
--- NOTE | 2024-03-29 02:37 | EDS_ITS ---
HPI History of Present Illness Chief Complaint: Lower Extremity Injury [facility] Medical History Respiratory failure Coronary artery disease Cardiology follow-up encounter Anxiety Wears partial dentures Wears glasses Arthritis Low iron High cholesterol Injury of back History of ulceration Gastric reflux Former smoker Asthma CPAP (continuous positive airway pressure) dependence Sleep apnea History of stress test Nonobstructive atherosclerosis of coronary artery Iron deficiency anemia Lumbar disc disease Peptic ulcer Iron deficiency anemia secondary to inadequate dietary iron intake Chronic low back pain Diverticulosis Hiatal hernia Malabsorption syndrome GERD (gastroesophageal reflux disease) [place] treated with BiPAP Hyperlipidemia Pulmonary emphysema Vitamin D deficiency Insomnia Bilateral carotid artery disease Home Medications ?Medication ?Instructions ?Recorded ?Last Taken ?Type calcium 600 mg (as carbonate)-vit 1 ea PO DAILY vitamin 09/08/16 Unknown History D3 10 mcg (400 unit) chewable tablet (Calcium 600 with Vitamin D3) albuterol sulfate 90 mcg/actuation 2 puff inhalation Q6H PRN Wheezing 10/24/21 Unknown History aerosol inhaler (Ventolin HFA) cholecalciferol (vitamin D3) 1,250 1,250 mcg PO QWEEK vitamin 10/24/21 Unknown History mcg (50,000 unit) tablet cyanocobalamin (vitamin B-12) 2,000 mcg PO DAILY vitamin 10/24/21 Unknown History 1,000 mcg tablet (Vitamin B-12) epinephrine 0.3 mg/0.3 mL 0.3 mg IM ONCE PRN Allergic 10/24/21 Unknown History injection, auto-injector (EpiPen) Reaction nitroglycerin 0.4 mg sublingual 0.4 mg sublingual Q5-15M PRN Chest 10/24/21 Unknown History tablet Pain omega-3 fatty acids 1,000 mg 1,000 mg PO DAILY supplement 10/24/21 Unknown History capsule omeprazole 40 mg capsule,delayed 40 mg PO BID reflux 10/24/21 Unknown History release coenzyme Q10 100 mg capsule (Co 100 mg PO QHS supplement 10/25/21 Unknown History Q-10) iron, carbonyl 45 mg tablet 45 mg PO DAILY supplement 04/22/22 Unknown History pravastatin 80 mg tablet 40 mg PO QHS cholesterol 10/29/22 Unknown History benzonatate 200 mg capsule 200 mg PO TID PRN PRN cough 09/20/23 Unknown History fluticasone fur. 100 mcg-umeclid 1 ea inhalation DAILY breathing 09/20/23 Unknown History 62.5 mcg-vilant 25 mcg inhalat.powder (Trelegy Ellipta) ipratropium 0.5 mg-albuterol 3 mg 3 ml inhalation Q4H PRN sob 09/20/23 Unknown History (2.5 mg base)/3 mL nebulization soln triamcinolone acetonide 0.5 % 1 applic topical BID 10/20/23 Unknown History topical ointment ondansetron 4 mg disintegrating 4 mg PO Q8H PRN PRN Nausea #10 tabs 03/29/24 Unknown Rx tablet Allergy/AdvReac Type Severity Reaction Status Date / Time bee venom protein (honey bee) Allergy Intermediate Hives Verified 03/29/24 02:33 morphine Allergy Intermediate hypotension Verified 03/29/24 02:33 pneumococcal vaccine Allergy Intermediate localized Verified 03/29/24 02:33 swelling acetaminophen (From Allergy Unknown Verified 03/29/24 02:33 Darvocet-N 100) codeine Allergy Unknown Verified 03/29/24 02:33 meperidine HCl (From Demerol) Allergy Unknown Verified 03/29/24 02:33 propoxyphene HCl (From Allergy Unknown Verified 03/29/24 02:33 Darvon) propoxyphene napsylate (From Allergy Unknown Verified 03/29/24 02:33 Darvocet-N 100) atorvastatin (From Lipitor) AdvReac Intermediate leg Verified 03/29/24 02:33 weakness Family History Mother Diabetes CHF (congestive heart failure) Hypertension Colon cancer Father Cancer pancreatic Sister Colon cancer Brother COPD (chronic obstructive pulmonary disease) Diabetes Cancer prostate Surgical History History of carpal tunnel release History of gastric bypass History of back surgery (09/11/15) H/O bypass gastrojejunostomy (~2006) History of left heart catheterization (10/28/21) History of esophagogastroduodenoscopy (EGD) (~10/23/20) History of colonoscopy (~10/23/20) History of appendectomy History of cholecystectomy (~2002) Social History Smoking Status: Former smoker Tobacco: How many years used: 33 how long ago did patient quit smokin08/07/2001 alcohol intake: never substance use type: does not use EXAM Physical Exam Const Vital Signs: 03/29/24 02:33 Temperature 97.7 F L Temperature Source Oral Pulse Rate 95 Respiratory Rate 18 Blood Pressure 130/67 H Blood Pressure Mean 88 Pulse Ox 96 Oxygen Delivery Method Room Air [facility] Narrative Medical decision making narrative: HISTORY OF PRESENT ILLNESS: 68-year-old male presents via EMS secondary to cramps in both legs. Notes this woke him from sleep. Per EMS patient received Toradol. Patient notes acute onset of cramping tonight as he tried to move in bed. Denies vomiting or diarrhea. Denies similar history of symptoms or trauma. REVIEW OF SYSTEMS: Pertinent positives: Leg cramps Pertinent negatives: Leg swelling, trauma PHYSICAL EXAM: Nursing triage notes reviewed, Vital signs reviewed Constitutional: please see mdm HENT: MMM Eyes: Pupils equal round and reactive to light, Extraocular muscles intact Neck: No stridor, no JVD, full neck ROM Lungs: Clear to auscultation, No wheezing or rales. No increased work of breathing, no conversational dyspnea, no accessory muscle use, no nasal flaring. No respiratory distress noted Heart: Regular rate and rhythm, No murmurs, No rubs and No gallops, 2+ distal pulses (radial, femoral, posterior tibial) in all extremities Abdomen: Soft, there is no tenderness, rigidity, rebound or guarding, no obvious peritoneal signs, no palpable pulsatile abdominal masses, no auscultated abdominal bruit : No CVAT Extremities: No edema Neuro: No focal neurological deficits, cranial nerves II through XII intact, 5/5 strength in all extremities. Intact sensation to light touch in all extremities, 2+ reflexes bilateral patella tendons. Normal gait. No ataxia. Skin: No rash or lesions noted MEDICAL DECISION MAKING: Chief Complaint: Leg cramps External records reviewed: Reviewed allergy list, problem list, vital signs, current medications Factors affecting care: Hyperlipidemia, CAD Social determinants of health: none History obtained from others: none Consults: none [facility] Narrative: The patient was initially hemodynamically stable, afebrile and nontoxic-oksana earing. Exam without obvious trauma. Intact pulses. Extremities warm and well-perfused. I considered the following differential diagnosis: Electrolyte disturbance, rhabdomyolysis, DVT, arterial occlusion, fracture dislocation ALL IMAGES (IF OBTAINED) HAVE BEEN PERSONALLY REVIEWED AND INTERPRETED BY MYSELF. CBC with no leukocytosis, noted anemia (improved from prior), no thrombocytopenia BMP without evidence of significant electrolyte abnormalities, no anion gap, no acute kidney injury. CK within normal limits suggesting no significant muscle breakdown The synthesis of the patient's history, physical exam, labs images suggest muscle cramps. He was initially treated with Norflex and Ativan with improvement in cramps. He was given Zofran for nausea. Written Zofran for home-going labs reassuring. Patient appropriate discharge home. The patient and/or family, caregivers express understanding. The patient and/or family, caregivers agrees with the plan. Shared decision making: I will have a discussion with the patient and or visitors regarding risk/benefits of further testing or admission. They will be made aware of of the risk/benefits inherent in this decision they will be given the opportunity to voice understanding. Total critical care time today provided was at least 0 minutes. This excludes separately billable procedures. Critical care time (if documented) is secondary to the patient having high probability of clinically significant/life threatening deterioration in the patient's condition which required my urgent intervention. Impression: 1. Acute muscle spasm 2. Anemia Dispo: discharge This note was generated with [employer] dictation software. It may contain incorrect words, spelling, and punctuation that were not noted in review of the chart pr ior to signing. Lab Data Labs: Laboratory Results - last 24 hr 03/29/24 02:51 WBC 5.1 RBC 3.99 L Hgb 12.4 L Hct 35.1 L MCV 88.0 MCH 31.1 MCHC 35.3 RDW Std Deviation 41.1 RDW Coeff of Dari 12.8 Plt Count 226 MPV 8.5 Sodium 141 Potassium 4.0 Chloride 111 H Carbon Dioxide 25.0 Anion Gap 5 BUN 19 H Creatinine 0.96 Estim Creat Clear Calc 74.99 Est GFR (MDRD) Af Amer 100 Est GFR (MDRD) Non-Af 83 BUN/Creatinine Ratio 19.8 Glucose 102 Calcium 8.8 Total Creatine Kinase 236 Discharge Plan Triage Chief Complaint: Lower Extremity Injury ED Provider: Donny Duval Dx/Rx/DC Orders Clinical Impression: Cramps of lower extremity Instructions: ED Leg Spasm Prescriptions: New ondansetron 4 mg tablet,disintegrating 4 mg PO Q8H PRN PRN (Reason: Nausea) Qty: 10 0RF No Action coenzyme Q10 [Co Q-10] 100 mg capsule 100 mg PO QHS omeprazole 40 mg capsule,delayed release(DR/EC) 40 mg PO BID cyanocobalamin (vitamin B-12) [Vitamin B-12] 1,000 mcg tablet 2,000 mcg PO DAILY cholecalciferol (vitamin D3) 1,250 mcg (50,000 unit) tablet 1,250 mcg PO QWEEK epinephrine [EpiPen] 0.3 mg/0.3 mL auto-injector 0.3 mg IM ONCE PRN (Reason: Allergic Reaction) Rx Instructions: as a single dose; may repeat once omega-3 fatty acids 1,000 mg capsule 1,000 mg PO DAILY nitroglycerin 0.4 mg tablet, sublingual 0.4 mg sublingual Q5-15M PRN (Reason: Chest Pain) Rx Instructions: do not exceed 3 doses per episode iron, carbonyl 45 mg tablet 45 mg PO DAILY pravastatin 80 mg tablet 40 mg PO QHS triamcinolone acetonide 0.5 % ointment 1 applic topical BID Calcium 600 with Vitamin D3 1 EACH tablet,chewable 1 ea PO DAILY albuterol sulfate [Ventolin HFA] 90 mcg/actuation HFA aerosol inhaler 2 puff inhalation Q6H PRN (Reason: Wheezing) benzonatate 200 mg capsule 200 mg PO TID PRN PRN (Reason: cough) ipratropium-albuterol 0.5 mg-3 mg(2.5 mg base)/3 mL solution for nebulization 3 ml inhalation Q4H PRN (Reason: sob) Trelegy Ellipta 100-62.5-25 mcg blister with device 1 ea inhalation DAILY Primary Care Provider: Andry Etienne Referrals: Andry Etienne MD [Primary Care Provider] - Activity Restrictions/Additional Instructions: Thank you for trusting us with your care today! Please take Tylenol (2 pills, 650 mg), ibuprofen (2 pills, 400 mg) every 6 hours as needed for pain and fever control. Please drink plenty of electrolyte containing fluids including Body Armor, Pedialyte or Gatorade. Please return to the emergency department if your symptoms change or worsen. Please follow with your primary care physician for further outpatient evaluation and management. Print Language: [place] Disposition Disposition: Home, Self Care
[2024-03-29] MEDS: LORazepam 2 MG/ML Syringe 1 MG IV (02:52)
[2024-03-29] MEDS: Orphenadrine 60 MG/2 ML Ampul IV (02:53)
[2024-03-29] MEDS: 0.9% Normal Saline (500mL Bag) 500 ML 999 ML IV (02:54)
[2024-03-29 02:56] LABS: Hematocrit 35.1 % (40-54); Hemoglobin 12.4 g/dL (13.0-16.5); Mean Corp Hgb Conc 35.3 g/dL (32-36); Mean Corpuscular Hgb 31.1 pg (27.0-32.0); Mean Platelet Vol. 8.5 fl (6.2-12.0); Platelet Count 226 K/mm3 (150-450); RBC Distribution Width CV 12.8 % (11.6-14.6); RBC Distribution Width SD 41.1 fl (35.1-43.9); Red Blood Count 3.99 M/mm3 (4.6-6.2); White Blood Count 5.1 K/mm3 (4.4-11.0)
[2024-03-29 03:13] LABS: Anion Gap 5 (5-15); BUN 19 mg/dL (7-18); BUN/Creat Ratio 19.8 RATIO (10-20); CPK Total, Creatine Kinase 236 U/L (39-308); Calcium,Total 8.8 mg/dL (8.5-10.1); Chloride 111 mmol/L (98-107); Creatinine, Serum 0.96 mg/dL (0.70-1.30); EST Glomerular Filtration Rate 83 mL/min (>60); Est Glom Filt Rate - Afr Amer 100 mL/min (>60); Estimated Creatinine Clearance 74.99 ml/min; Glucose 102 mg/dL (74-106); Sodium Level 141 mmol/L (136-145)
[2024-03-29] MEDS: Ondansetron 4 MG/2 ML Vial IV (04:34)
[2024-03-29 04:35] VITALS: BP 118/59; PULSE 70; RESP 16; TEMP 36.6; O2SAT 92
== END 2024-03-29 04:45 | disposition home or self-care (01) ==
PROVIDERS: Emergency Provider Emergency Medicine; PCP Family Medicine; Visit Provider Emergency Medicine
DX: M62.838 Other muscle spasm (principal); I25.10 Atherosclerotic heart disease of native coronary artery without angina pectoris; E78.00 Pure hypercholesterolemia, unspecified; G47.33 Obstructive sleep apnea (adult) (pediatric); Z79.51 Long term (current) use of inhaled steroids; Z79.899 Other long term (current) drug therapy; Z87.891 Personal history of nicotine dependence
CPT/HCPCS: 80048; 82550; 85027; 96361; 96374; 96375; 96376; 99285; J7030; J2405

== ENCOUNTER 2024-07-10 15:19 | Emergency (ER) | payer MEDICARE, SELFPAY ==
[2024-07-10] VITALS (7 sets, daily range): BP systolic 129–148; BP diastolic 63–72; PULSE 88–100; RESP 12–27; TEMP 36.6–36.8; O2SAT 93–97; BMI 26.9
--- NOTE | 2024-07-10 15:44 | EKG12_ITS ---
Test Reason : cp Blood Pressure : */* mmHG Vent. Rate : 92 BPM Atrial Rate : 92 BPM P-R Int : 142 ms QRS Dur : 84 ms QT Int : 346 ms P-R-T Axes : 69 17 39 degrees QTcB Int : 427 ms Normal sinus rhythm Normal ECG When compared with ECG of 20-Sep-2023 13:08, No significant change was found Confirmed by Anival Ivey ([id number]), image editor HANNA DURANT ([id number]) on 07/11/2024 9:48:25 AM Referred By: Jamin/jack Confirmed By: Anival Ivey
--- NOTE | 2024-07-10 15:45 | ED.VIS.DYS ---
HPI History of Present Illness Chief Complaint: Shortness of Breath Narrative Narrative: 68-year-old male past medical history of COPD, quit smoking remotely presents with 1 month of cough with phlegm production and shortness of breath. He has been using albuterol. He usually sees Dr. Teri Wiley as his car tracer. He ran out of his Trelegy but did have Symbicort that he is using. He denies any weight gain or leg swelling but states that he is having increased dyspnea on exertion. Of note, he and his state that they recently had COVID and that he was recently getting over pneumonia as well. [facility] Medical History Respiratory failure Coronary artery disease Cardiology follow-up encounter Anxiety Wears partial dentures Wears glasses Arthritis Low iron High cholesterol Injury of back History of ulceration Gastric reflux Former smoker Asthma CPAP (continuous positive airway pressure) dependence Sleep apnea History of stress test Nonobstructive atherosclerosis of coronary artery Iron deficiency anemia Lumbar disc disease Peptic ulcer Iron deficiency anemia secondary to inadequate dietary iron intake Chronic low back pain Diverticulosis Hiatal hernia Malabsorption syndrome GERD (gastroesophageal reflux disease) [place] treated with BiPAP Hyperlipidemia Pulmonary emphysema Vitamin D deficiency Insomnia Bilateral carotid artery disease Home Medications ?Medication ?Instructions ?Recorded ?Last Taken ?Type calcium 600 mg (as carbonate)-vit 1 ea PO DAILY vitamin 09/08/16 Unknown History D3 10 mcg (400 unit) chewable tablet (Calcium 600 with Vitamin D3) albuterol sulfate 90 mcg/actuation 2 puff inhalation Q6H PRN Wheezing 10/24/21 Unknown History aerosol inhaler (Ventolin HFA) cholecalciferol (vitamin D3) 1,250 1,250 mcg PO QWEEK vitamin 10/24/21 Unknown History mcg (50,000 unit) tablet cyanocobalamin (vitamin B-12) 2,000 mcg PO DAILY vitamin 10/24/21 Unknown History 1,000 mcg tablet (Vitamin B-12) epinephrine 0.3 mg/0.3 mL 0.3 mg IM ONCE PRN Allergic 10/24/21 Unknown History injection, auto-injector (EpiPen) Reaction nitroglycerin 0.4 mg sublingual 0.4 mg sublingual Q5-15M PRN Chest 10/24/21 Unknown History tablet Pain omega-3 fatty acids 1,000 mg 1,000 mg PO DAILY supplement 10/24/21 Unknown History capsule omeprazole 40 mg capsule,delayed 40 mg PO BID reflux 10/24/21 Unknown History release coenzyme Q10 100 mg capsule (Co 100 mg PO QHS supplement 10/25/21 Unknown History Q-10) iron, carbonyl 45 mg tablet 45 mg PO DAILY supplement 04/22/22 Unknown History pravastatin 80 mg tablet 40 mg PO QHS cholesterol 10/29/22 Unknown History benzonatate 200 mg capsule 200 mg PO TID PRN PRN cough 09/20/23 Unknown History fluticasone fur. 100 mcg-umeclid 1 ea inhalation DAILY breathing 09/20/23 Unknown History 62.5 mcg-vilant 25 mcg inhalat.powder (Trelegy Ellipta) ipratropium 0.5 mg-albuterol 3 mg 3 ml inhalation Q4H PRN sob 09/20/23 Unknown History (2.5 mg base)/3 mL nebulization soln triamcinolone acetonide 0.5 % 1 applic topical BID 10/20/23 Unknown History topical ointment ondansetron 4 mg disintegrating 4 mg PO Q8H PRN PRN Nausea #10 tabs 03/29/24 Unknown Rx tablet albuterol sulfate 90 mcg/actuation 2 puff inhalation Q4H PRN PRN 07/10/24 Unknown Rx aerosol inhaler (Ventolin HFA) Wheezing #1 ea prednisone 20 mg tablet 40 mg (2 x 20 mg) PO DAILY 7 days 07/10/24 Unknown Rx #14 tabs Allergy/AdvReac Type Severity Reaction Status Date / Time bee venom protein (honey bee) Allergy Intermediate Hives Verified 07/10/24 15:20 morphine Allergy Intermediate hypotension Verified 07/10/24 15:20 pneumococcal vaccine Allergy Intermediate localized Verified 07/10/24 15:20 swelling acetaminophen (From Allergy Unknown Verified 07/10/24 15:20 Darvocet-N 100) codeine Allergy Unknown Verified 07/10/24 15:20 meperidine HCl (From Demerol) Allergy Unknown Verified 07/10/24 15:20 propoxyphene HCl (From Allergy Unknown Verified 07/10/24 15:20 Darvon) propoxyphene napsylate (From Allergy Unknown Verified 07/10/24 15:20 Darvocet-N 100) atorvastatin (From Lipitor) AdvReac Intermediate leg Verified 07/10/24 15:20 weakness Family History Mother Diabetes CHF (congestive heart failure) Hypertension Colon cancer Father Cancer pancreatic Sister Colon cancer Brother COPD (chronic obstructive pulmonary disease) Diabetes Cancer prostate Surgical History History of carpal tunnel release History of gastric bypass History of back surgery (09/11/15) H/O bypass gastrojejunostomy (~2006) History of left heart catheterization (10/28/21) History of esophagogastroduodenoscopy (EGD) (~10/23/20) History of colonoscopy (~10/23/20) History of appendectomy History of cholecystectomy (~2002) Social History Smoking Status: Former smoker Tobacco: How many years used: 33 how long ago did patient quit smokin08/07/2001 alcohol intake: never substance use type: does not use ROS ROS ED ROS Narrative Constitutional: No fever, no chills. HEENT: No sore throat. No neck pain. Cardiovascular: No chest pain. No palpitations. No pedal edema. Respiratory: Positive productive cough, increasing shortness of breath for 1 month. Abdominal: No abdominal pain. No nausea. No vomiting. Genitourinary: No dysuria. No hematuria. Musculoskeletal: No myalgias. No arthralgias. Neurologic: No headaches. No dizziness. No lightheadedness. EXAM Physical Exam Narrative Exam Narrative: Afebrile. Vital signs noted. Nontoxic-appearing. Cardiovascular examination of is a regular rate and rhythm. Respiratory examination reveals mild tachypnea with decreased breath sounds at the bilateral bases. Abdomen is soft nontender. No appreciable pedal edema/nonpitting. Neurological examination is nonfocal and nonlateralizing. Const Vital Signs: 07/10/24 15:21 07/10/24 15:32 07/10/24 16:00 Temperature 98.1 F Temperature Source Oral Pulse Rate 94 88 Respiratory Rate 22 H 16 Respiratory Effort Normal Non-Labored Respiratory Depth Normal Respiratory Pattern Normal Blood Pressure 129/63 H Blood Pressure Mean 85 Pulse Ox 97 Oxygen Delivery Method Room Air Room Air Oxygen Flow Rate (L/min) 07/10/24 16:14 07/10/24 16:34 07/10/24 16:49 Temperature 97.8 F Temperature Source Oral Pulse Rate 91 95 Respiratory Rate 12 15 Respiratory Effort Respiratory Depth Respiratory Pattern Blood Pressure 130/68 H Blood Pressure Mean 88 Pulse Ox 97 96 Oxygen Delivery Method Room Air Room Air Oxygen Flow Rate (L/min) 07/10/24 17:00 07/10/24 17:00 Temperature 98.2 F Temperature Source Oral Pulse Rate 100 91 Respiratory Rate 27 H 20 H Respiratory Effort Respiratory Depth Respiratory Pattern Blood Pressure 148/72 H 141/70 H Blood Pressure Mean 97 89 Pulse Ox 93 97 Oxygen Delivery Method Nasal Cannula Oxygen Flow Rate (L/min) 2 MDM MDM MDM Narrative Medical decision making narrative: Concern is for COPD exacerbation versus pneumonia versus pneumothorax versus CHF. I doubt CHF because he does not have this in his history and he does not appear fluid overloaded on his examination. Pulse ox is 97% on room air. He was given a DuoNeb aerosolized treatment and Solu-Medrol intravenously. Chest x-ray and 2 views will be obtained as well as basic laboratory work. EKG was obtained and interpreted by myself independently as normal sinus rhythm at 92 bpm without ectopy or acute ST changes. No STEMI. I do not feel he requires a troponin because he is not having chest pain or signs of ACS. I reviewed his laboratory work and he has normal white count of 6.7 with hemoglobin 12.6, hematocrit 36.5 and platelet count normal at 343. BMP is remarkable for glucose of 131 with a normal anion gap of 10, otherwise grossly unremarkable. proBNP is less than 36 so I doubt CHF. Chest x-ray and 2 views interpreted by myself independently shows no evidence of pneumonia. I reviewed the radiology report which confirms my independent interpretation. I do not feel antibiotics are indicated. Repeat examination at approximately 1700 shows him resting comfortably in the bed without tachypnea. His resting pulse ox is 96 to 97% on room air. He will be ambulated in the emergency department but I do feel that he can be discharged to follow-up with his car tracer. His states that he has an appointment on approximately 4 days from now. He was written prescriptions for a steroid burst to start tomorrow as he was given a loading dose here in the emergency department. I also wrote for him to have an albuterol inhaler to use 2 puffs inhaled every 4-6 hours as needed especially over the next few days. RN reports the patient was able to ambulate on room air without difficulty and no significant drop in his pulse oximetry. Return instructions to the emergency department were reviewed. Disposition is discharged home in stable condition. History & Record Review Discussion w/independent historian: Patient and Family Lab Data Attestation: I reviewed the patient's lab results. Labs: Laboratory Results - last 24 hr 07/10/24 16:02 WBC 6.7 RBC 4.13 L Hgb 12.6 L Hct 36.5 L MCV 88.4 MCH 30.5 MCHC 34.5 RDW Std Deviation 42.3 RDW Coeff of Dari 13.1 Plt Count 343 MPV 8.3 Immature Gran % (Auto) 0.600 Neut % (Auto) 84.1 H Lymph % (Auto) 11.5 L [place] % (Auto) 3.4 Eos % (Auto) 0.1 Baso % (Auto) 0.3 Absolute Neuts (auto) 5.6 Absolute Lymphs (auto) 0.77 L Nucleated RBC % 0 Sodium 137 Potassium 4.2 Chloride Direct 104 Carbon Dioxide 22.8 Anion Gap 10 BUN 15 Creatinine 0.95 Estim Creat Clear Calc 75.77 Est GFR (MDRD) Non-Af 87 BUN/Creatinine Ratio 15.9 Glucose 131 H Calcium 9.1 NT pro BNP II < 36 Radiography Chest X-Ray - ED: 2 View, Read by ED Physician and Read by Radiologist Diagnostic Testing: Clinical Impression(s) from Imaging Studies Chest X-Ray 07/10/24 16:11 IMPRESSION: No radiographic evidence of acute cardiopulmonary disease Reading Location: [facility] Discharge Plan Triage Chief Complaint: Shortness of Breath ED Provider: Fredo Smiley Dx/Rx/DC Orders Clinical Impression: COPD exacerbation, Dyspnea Instructions: ED COPD Flare, ED Dyspnea Prescriptions: New prednisone 20 mg tablet 40 mg PO DAILY 7 Days Qty: 14 0RF albuterol sulfate [Ventolin HFA] 90 mcg/actuation HFA aerosol inhaler 2 puff inhalation Q4H PRN PRN (Reason: Wheezing) Qty: 1 0RF No Action coenzyme Q10 [Co Q-10] 100 mg capsule 100 mg PO QHS omeprazole 40 mg capsule,delayed release(DR/EC) 40 mg PO BID cyanocobalamin (vitamin B-12) [Vitamin B-12] 1,000 mcg tablet 2,000 mcg PO DAILY cholecalciferol (vitamin D3) 1,250 mcg (50,000 unit) tablet 1,250 mcg PO QWEEK epinephrine [EpiPen] 0.3 mg/0.3 mL auto-injector 0.3 mg IM ONCE PRN (Reason: Allergic Reaction) Rx Instructions: as a single dose; may repeat once omega-3 fatty acids 1,000 mg capsule 1,000 mg PO DAILY nitroglycerin 0.4 mg tablet, sublingual 0.4 mg sublingual Q5-15M PRN (Reason: Chest Pain) Rx Instructions: do not exceed 3 doses per episode iron, carbonyl 45 mg tablet 45 mg PO DAILY pravastatin 80 mg tablet 40 mg PO QHS triamcinolone acetonide 0.5 % ointment 1 applic topical BID Calcium 600 with Vitamin D3 1 EACH tablet,chewable 1 ea PO DAILY albuterol sulfate [Ventolin HFA] 90 mcg/actuation HFA aerosol inhaler 2 puff inhalation Q6H PRN (Reason: Wheezing) ondansetron 4 mg tablet,disintegrating 4 mg PO Q8H PRN PRN (Reason: Nausea) Qty: 10 0RF benzonatate 200 mg capsule 200 mg PO TID PRN PRN (Reason: cough) ipratropium-albuterol 0.5 mg-3 mg(2.5 mg base)/3 mL solution for nebulization 3 ml inhalation Q4H PRN (Reason: sob) Trelegy Ellipta 100-62.5-25 mcg blister with device 1 ea inhalation DAILY Primary Care Provider: Andry Etienne Referrals: Teri Wiley MD [Non-Staff] - Keep Andre appointment Andry Etienne MD [Primary Care Provider] - Activity Restrictions/Additional Instructions: Follow-up with your car tracer on as scheduled. Use albuterol inhaler 2 puffs inhaled every 4-6 hours especially over the next few days. Take the steroid burst starting tomorrow as you have been given a loading dose here in the emergency department. Return with increased difficulty breathing, new or worsening symptoms. Print Language: Nepalese Disposition Disposition: Home, Self Care Discharge Date/Time: 07/10/24 17:24
[2024-07-10] MEDS: Ipratropium/Albuterol Sulfate 3 ML AMPUL.NEB INHALATION (15:57)
[2024-07-10] MEDS: MethylPREDNISolone 125 MG/2 ML Vial IV (16:03)
[2024-07-10 16:08] LABS: Absolute Lymphocyte Count 0.77 X10^3/uL (0.83-4.51); Absolute Neutrophil Count 5.6 X10^3/uL (2.0-7.7); Basophil# 0.02 X10^3/uL; Basophil% 0.3 % (0-1); Eosinophil# 0.01 X10^3/uL; Eosinophils% 0.1 % (0-5); Hematocrit 36.5 % (40-54); Hemoglobin 12.6 g/dL (13.0-16.5); Lymphocyte # 0.77 X10^3/ul (0.83-4.51); Lymphocyte % 11.5 % (19-41); Mean Corp Hgb Conc 34.5 g/dL (32-36); Mean Corpuscular Hgb 30.5 pg (27.0-32.0); Mean Corpuscular Volume 88.4 fL (80-94); Mean Platelet Vol. 8.3 fl (6.2-12.0); Monocyte# 0.23 X10^3/uL; Monocyte% 3.4 % (0-10); NRBC Flagged by Analyzer 0 % (0-5); Neutrophil # 5.64 X10^3/uL (2.7-7.7); Neutrophil % 84.1 % (47-70); Platelet Count 343 K/mm3 (150-450); RBC Distribution Width CV 13.1 % (11.6-14.6); RBC Distribution Width SD 42.3 fl (35.1-43.9); Red Blood Count 4.13 M/mm3 (4.6-6.2); White Blood Count 6.7 K/mm3 (4.4-11.0)
--- NOTE | 2024-07-10 16:11 | RAD_ITS ---
PROCEDURE: CHEST PA AND LATERAL REASON FOR EXAM: Shortness of breath TECHNIQUE: Frontal and lateral views of the chest. COMPARISON: 09/20/2023 FINDINGS: The heart size is normal. The mediastinal contour is unremarkable. The lungs are clear. The bones are unremarkable. RAD/Chest PA and Lateral IMPRESSION: No radiographic evidence of acute cardiopulmonary disease Reading Location: [facility]
[2024-07-10 16:43] LABS: Anion Gap 10 (5-15); BUN 15 mg/dL (4-19); BUN/Creat Ratio 15.9 RATIO (10-20); Calcium 9.1 mg/dL (7.6-11.0); Carbon Dioxide 22.8 mmol/L (22.0-29.0); Chloride 104 mmol/L (96-108); Creatinine, Serum 0.95 mg/dL (0.70-1.20); EST Glomerular Filtration Rate 87 (>60); Estimated Creatinine Clearance 75.77 ml/min (50-250); Glucose 131 mg/dL (70-99); Potassium 4.2 mmol/L (3.3-5.1); Sodium Level 137 mmol/L (133-145)
[2024-07-10 16:46] LABS: Pro- Brain NATRIURETIC PEPTIDE < 36 pg/mL (<=900)
== END 2024-07-10 17:24 | disposition home or self-care (01) ==
PROVIDERS: Emergency Provider Emergency Medicine; PCP Family Medicine; Visit Provider Emergency Medicine
DX: J44.1 Chronic obstructive pulmonary disease with (acute) exacerbation (principal); I25.10 Atherosclerotic heart disease of native coronary artery without angina pectoris; G47.33 Obstructive sleep apnea (adult) (pediatric); Z87.891 Personal history of nicotine dependence
CPT/HCPCS: 71046; 80048; 83880; 85025; 93005; 94640; 96374; 99284; A4216

== ENCOUNTER 2024-11-13 17:50 | Emergency (ER) | payer MEDICARE, SELFPAY ==
[2024-11-13 17:51] VITALS: BP 121/82; PULSE 88; RESP 18; TEMP 36.6; O2SAT 98; BMI 26.4
--- NOTE | 2024-11-13 18:10 | EX.ED.DYSGE1 ---
HPI History of Present Illness Chief Complaint: Rash Informant: patient Onset/Context/Timing Onset: Days Context: Gradual Onset Timing: Continuous Current Severity: Mild Maximum Severity: Mild Narrative Narrative: 78-year-old male history of CAD and COPD. Has had redness to his right arm for about 7 days somewhat uncomfortable. Denies fever or chills. She does a lot of outside work but he does not remember getting bit or stung by anything. No prior history of cellulitis. Prior similar symptoms: No Recent Illness/Hospitalization: No PFSH PFSH Medical History Respiratory failure Coronary artery disease Cardiology follow-up encounter Anxiety Wears partial dentures Wears glasses Arthritis Low iron High cholesterol Injury of back History of ulceration Gastric reflux Former smoker Asthma CPAP (continuous positive airway pressure) dependence Sleep apnea History of stress test Nonobstructive atherosclerosis of coronary artery Iron deficiency anemia Lumbar disc disease Peptic ulcer Iron deficiency anemia secondary to inadequate dietary iron intake Chronic low back pain Diverticulosis Hiatal hernia Malabsorption syndrome GERD (gastroesophageal reflux disease) [place] treated with BiPAP Hyperlipidemia Pulmonary emphysema Vitamin D deficiency Insomnia Bilateral carotid artery disease Home Medications ?Medication ?Instructions ?Recorded ?Last Taken ?Type calcium 600 mg (as carbonate)-vit 1 ea PO DAILY vitamin 09/08/16 Unknown History D3 10 mcg (400 unit) chewable tablet (Calcium 600 with Vitamin D3) albuterol sulfate 90 mcg/actuation 2 puff inhalation Q6H PRN Wheezing 10/24/21 Unknown History aerosol inhaler (Ventolin HFA) cholecalciferol (vitamin D3) 1,250 1,250 mcg PO QWEEK vitamin 10/24/21 Unknown History mcg (50,000 unit) tablet cyanocobalamin (vitamin B-12) 2,000 mcg PO DAILY vitamin 10/24/21 Unknown History 1,000 mcg tablet (Vitamin B-12) epinephrine 0.3 mg/0.3 mL 0.3 mg IM ONCE PRN Allergic 10/24/21 Unknown History injection, auto-injector (EpiPen) Reaction nitroglycerin 0.4 mg sublingual 0.4 mg sublingual Q5-15M PRN Chest 10/24/21 Unknown History tablet Pain omega-3 fatty acids 1,000 mg 1,000 mg PO DAILY supplement 10/24/21 Unknown History capsule omeprazole 40 mg capsule,delayed 40 mg PO BID reflux 10/24/21 Unknown History release coenzyme Q10 100 mg capsule (Co 100 mg PO QHS supplement 10/25/21 Unknown History Q-10) iron, carbonyl 45 mg tablet 45 mg PO DAILY supplement 04/22/22 Unknown History pravastatin 80 mg tablet 40 mg PO QHS cholesterol 10/29/22 Unknown History benzonatate 200 mg capsule 200 mg PO TID PRN PRN cough 09/20/23 Unknown History fluticasone fur. 100 mcg-umeclid 1 ea inhalation DAILY breathing 09/20/23 Unknown History 62.5 mcg-vilant 25 mcg inhalat.powder (Trelegy Ellipta) ipratropium 0.5 mg-albuterol 3 mg 3 ml inhalation Q4H PRN sob 09/20/23 Unknown History (2.5 mg base)/3 mL nebulization soln triamcinolone acetonide 0.5 % 1 applic topical BID 10/20/23 Unknown History topical ointment ondansetron 4 mg disintegrating 4 mg PO Q8H PRN PRN Nausea #10 tabs 03/29/24 Unknown Rx tablet Held on 11/13/24. Instructions: Pt has been DC'd albuterol sulfate 90 mcg/actuation 2 puff inhalation Q4H PRN PRN 07/10/24 Unknown Rx aerosol inhaler (Ventolin HFA) Wheezing #1 ea prednisone 20 mg tablet 40 mg (2 x 20 mg) PO DAILY 7 days 07/10/24 Unknown Rx #14 tabs cephalexin 500 mg capsule 500 mg PO Q6 #40 CAPSULES 11/13/24 Unknown Rx Allergy/AdvReac Type Severity Reaction Status Date / Time bee venom protein (honey bee) Allergy Intermediate Hives Verified 11/13/24 17:52 morphine Allergy Intermediate hypotension Verified 11/13/24 17:52 pneumococcal vaccine Allergy Intermediate localized Verified 11/13/24 17:52 swelling codeine Allergy Unknown Verified 11/13/24 17:52 meperidine HCl (From Demerol) Allergy Unknown Verified 11/13/24 17:52 propoxyphene HCl (From Allergy Unknown Verified 11/13/24 17:52 Darvon) propoxyphene napsylate (From Allergy Unknown Verified 11/13/24 17:52 Darvocet-N 100) atorvastatin (From Lipitor) AdvReac Intermediate leg Verified 11/13/24 17:52 weakness Family History Mother Diabetes CHF (congestive heart failure) Hypertension Colon cancer Father Cancer pancreatic Sister Colon cancer Brother COPD (chronic obstructive pulmonary disease) Diabetes Cancer prostate Surgical History History of carpal tunnel release History of gastric bypass History of back surgery (09/11/15) H/O bypass gastrojejunostomy (~2006) History of left heart catheterization (10/28/21) History of esophagogastroduodenoscopy (EGD) (~10/23/20) History of colonoscopy (~10/23/20) History of appendectomy History of cholecystectomy (~2002) Social History Smoking Status: Former smoker Tobacco: How many years used: 33 how long ago did patient quit smokin08/07/2001 alcohol intake: never substance use type: does not use ROS ROS ED ROS Narrative Painful rash to right arm. Constitutional Constitutional ED: Denies chills or fever(s) Eyes Eyes: Denies blurry vision ENT ENT ED: Denies ear pain Cardiovascular Cardiovascular: Denies chest pain Respiratory/Chest Respiratory/Chest: Denies cough or dyspnea Gastrointestinal Gastrointestinal: Denies abdominal pain Genitourinary Genitourinary ED: Denies dysuria or hematuria Musculoskeletal Musculoskeletal: Denies arthralgias or back pain Integumentary Denies abscess or Abrasions Neurologic Neurologic: Denies headache(s) Psychiatric Psychiatric: Denies anxiety or depression Endocrine Endocrinology: Denies cold intolerance Hematologic/Lymphatic Hematologic/Lymphatic: Reports none Allergic/Immunologic Allergic/Immunologic ED: Denies mouth swelling, tongue swelling or urticaria EXAM Physical Exam Narrative Exam Narrative: 68-year-old male vital signs stable afebrile does not look septic or toxic no acute distress. at bedside. H EENT exam pupils round react to light. Mytrex membranes. Neck nontender no lymphadenopathy. Lungs clear to auscultation bilateral. Heart regular rate and rhythm no murmur. Chest wall ribs nontender. Abdomen soft nontender. Moving all 4 extremities. Neurovascular intact. No edema. Normal strength. Normal range of motion. His right upper arm laterally there is a red circular area consistent with a cellulitis. Is mildly tender to palpation. No necrotic skin. No axillary lymphadenopathy but he has mild redness in his armpit also. Also on his tongue with his right shoulder. His full range of motion of right shoulder is not swelling. There is no signs of septic joint. Exam is consistent with either cellulitis or possibly allergic reaction to insect stings but there is no site of the sting and no history of a sting. Neurologically he is awake and alert. Answer questions following commands. Benign exam. Const Vital Signs: 11/13/24 17:51 Temperature 97.8 F Temperature Source Oral Pulse Rate 88 Respiratory Rate 18 Blood Pressure 121/82 H Blood Pressure Mean 95 Pulse Ox 98 Oxygen Delivery Method Room Air Positive well nourished and well developed; Negative for obese, cachectic, contractures or unkempt General Appearance ED: well developed and NAD; Negative for unkempt, cachectic, contractures, cyanotic, diaphoretic or pallor Nutritional Appearance: Negative for cachectic or obese HEENT Reports moist mucous membranes Eyes PERRL and EOMs intact bilaterally Neck no lymphadenopathy, supple and no JVD Chest Wall inspection of chest normal and palpation of chest normal Resp normal respiratory effort and clear to auscultation bilaterally Cardio regular rate, regular rhythm, S1 normal heart sound, S2 normal heart sound and no murmurs GI normal to inspection, nondistended, normoactive bowel sounds, non-tender, non-distended and no masses Inspection: Negative for abdominal distention Auscultation: normoactive bowel sounds Palpation: soft; Negative for tender or guarding Back/Spine no CVA tenderness General Back: Negative for CVA tenderness Cervical Spine: Negative for cervical spine tenderness Thoracic Spine / Upper Back: Negative for thoracic spinal tenderness or paraspinal muscle tenderness Lumbar Spine / Lower Back: Negative for lumbar spinal tenderness Extremity normal to inspection Extremity Narrative: Red circular area probably 6 inches in diameter. Consistent with either cellulitis or local allergic reaction. Also in his axilla but no axillary lymphadenopathy on top of his right shoulder. Full range of motion of the shoulder no signs of a septic shoulder. No swelling. Forearm nontender nonswollen normal radial pulse. General Extremety ED: Yes tenderness; Negative for edema General Extremity: Negative for edema Neuro oriented x3 and CN's II-XII intact bilaterally Sensorium / Orientation: alert; Negative for orientation impaired Motor Exam: strength 5/5 throughout Psych mental status grossly normal Appearance: Negative for unkempt Attitude: No agitated Mood & Affect: Negative for depressed Skin No no rashes or lesions noted, no wounds and skin turgor normal General Skin Exam: Negative for elasticity normal, jaundice or pallor Lesions: No lesion noted Rashes: rashes noted Trauma: Negative for abrasion Wounds: Negative for wounds noted MDM MDM MDM Narrative Medical decision making narrative: Keep sick 8-year-old male red rash right lateral upper arm axilla and top of his shoulder consistent with cellulitis. No lymphadenopathy. No necrotic tissue. No subcu air. No septic joint. No history of insect bite or stings. He will be treated with Keflex first dose given here. Dose for tonight. 4 times a day for the next 10 days. Follow-up if not improving return if worse. Follow-up with primary care physician. History & Record Review Discussion w/independent historian: Patient and Family Additional record(s) reviewed:: Prior inpatient record, Prior outpatient record, Prior ED visit and Prior labs Discharge Plan Triage Chief Complaint: Rash ED Provider: Maycol Olivares Dx/Rx/DC Orders Clinical Impression: Cellulitis Instructions: ED Cellulitis Prescriptions: New cephalexin 500 mg capsule 500 mg PO Q6 Qty: 40 0RF No Action coenzyme Q10 [Co Q-10] 100 mg capsule 100 mg PO QHS omeprazole 40 mg capsule,delayed release(DR/EC) 40 mg PO BID cyanocobalamin (vitamin B-12) [Vitamin B-12] 1,000 mcg tablet 2,000 mcg PO DAILY cholecalciferol (vitamin D3) 1,250 mcg (50,000 unit) tablet 1,250 mcg PO QWEEK epinephrine [EpiPen] 0.3 mg/0.3 mL auto-injector 0.3 mg IM ONCE PRN (Reason: Allergic Reaction) Rx Instructions: as a single dose; may repeat once omega-3 fatty acids 1,000 mg capsule 1,000 mg PO DAILY nitroglycerin 0.4 mg tablet, sublingual 0.4 mg sublingual Q5-15M PRN (Reason: Chest Pain) Rx Instructions: do not exceed 3 doses per episode iron, carbonyl 45 mg tablet 45 mg PO DAILY pravastatin 80 mg tablet 40 mg PO QHS triamcinolone acetonide 0.5 % ointment 1 applic topical BID Calcium 600 with Vitamin D3 1 EACH tablet,chewable 1 ea PO DAILY albuterol sulfate [Ventolin HFA] 90 mcg/actuation HFA aerosol inhaler 2 puff inhalation Q6H PRN (Reason: Wheezing) ondansetron 4 mg tablet,disintegrating 4 mg PO Q8H PRN PRN (Reason: Nausea) Qty: 10 0RF prednisone 20 mg tablet 40 mg PO DAILY 7 Days Qty: 14 0RF albuterol sulfate [Ventolin HFA] 90 mcg/actuation HFA aerosol inhaler 2 puff inhalation Q4H PRN PRN (Reason: Wheezing) Qty: 1 0RF benzonatate 200 mg capsule 200 mg PO TID PRN PRN (Reason: cough) ipratropium-albuterol 0.5 mg-3 mg(2.5 mg base)/3 mL solution for nebulization 3 ml inhalation Q4H PRN (Reason: sob) Trelegy Ellipta 100-62.5-25 mcg blister with device 1 ea inhalation DAILY Primary Care Provider: Andry Etienne Referrals: Andry Etienne MD [Primary Care Provider] - 3-5 Days if not improving Activity Restrictions/Additional Instructions: Suspect soft tissue skin infection called cellulitis. Could be secondary to insect bite or stings but there is no history that you were bit or stung. Keflex 1 pill 4 times a day till gone. Take a dose of antibiotic tonight before you go to bed. Follow-up with your doctor if not improving. Return if worse. Print Language: Icelandic Disposition Disposition: Home, Self Care
--- OUTSIDE RECORDS SUMMARY | 2024-11-13 18:19 | XMS RPT_ITS | CCD ---
Author Organization [facility] Care Team Providers Care Computed Tomography Technician Name Role Phone Ronak Barry MD Unavailable Sena Hall Unavailable Unavailable DANY TOVAR DR Unavailable Unavailable DANY TOVAR DR Unavailable Unavailable DANY TOVAR DR Unavailable Unavailable RYLIE HINOJOSA Unavailable Unavailable PROVIDER, UNKNOWN Unavailable Unavailable PROVIDER, UNKNOWN Unavailable Unavailable PROVIDER, UNKNOWN Unavailable Unavailable Sena Hall Unavailable Unavailable Andry Jean-Baptiste MD Primary Care Provider Andry Jean-Baptiste MD Primary Care Provider Andry Jean-Baptiste MD Primary Care Provider Andry Jean-Baptiste MD Primary Care Provider Dr. Andry Jean-Baptiste Primary Care Provider Dr. Andry Jean-Baptiste Referring Provider Dr. Jason Nelson Attending Provider FriendDr. Gomez Other Provider Andry Jean-Baptiste MD Primary Care Provider [phone] Andry Jean-Baptiste MD Primary Care Provider Henok BARDALES.Lew PENA Unavailable Irma Perez PA-C Unavailable Andry Jean-Baptiste Primary Care Unavailable Donny Duval Attending Unavailable Dutch Garnett Admitting Unavailable Andry Jean-Baptiste Primary Care Unavailable Dutch Garnett Consulting Unavailable Tao Urena Attending Unavailable Andry Jean-Baptiste Primary Care Unavailable Dutch Garnett Admitting Unavailable Dutch Garnett Consulting Unavailable Tao Urena Attending Unavailable Tao Urena Consulting Unavailable Dutch Garnett Attending Unavailable Jerilyn, Andry Referring Unavailable Jerilyn, Andry Primary Care Unavailable David Cabral Attending Unavailable Fredo Smiley Attending Unavailable Jerilyn, Andry Primary Care Unavailable Andry Jean-Baptiste MD A Primary Care Provider JERILYN, ANDRY A Primary Care Unavailable TESTSRINATH WOODARD Attending Unavailable JERILYN, ANDRY A Primary Care Unavailable MARIA DE JESUS OSWALD Attending Unavailable JERILYN, ANDRY A Primary Care Unavailable TERI GROSS Attending Unavailable JERILYN, ANDRY A Referring Unavailable JERILYN, ANDRY A Primary Care Unavailable JERILYN, ANDRY A Primary Care Unavailable TESTSRINATH WOODARD Referring Unavailable JERILYN, ANDRY A Primary Care Unavailable JEIRLYN, ANDRY A Attending Unavailable JERILYN, ANDRY A Primary Care Unavailable SELF Referring Unavailable IRMA PEREZ Attending Unavailable JERILYN, ANDRY A Primary Care Unavailable JERILYN, ANDRY A Referring Unavailable JERILYN, ANDRY A Primary Care Unavailable JAIMIE JETT Attending Unavailable JAIMIE JETT Attending Unavailable JERILYN, ANDRY A Primary Care Unavailable LEW BIRD Referring Unavailable JERILYN, ANDRY A Primary Care Unavailable JERILYN, ANDRY A Primary Care Unavailable JERILYN, ANDRY A Attending Unavailable JERILYN, ANDRY A Primary Care Unavailable LEW BIRD Attending Unavailable JERILYN, ANDRY A Primary Care Unavailable JERILYN, ANDRY A Referring Unavailable JERILYN, ANDRY A Attending Unavailable JERILYN, ANDRY A Primary Care Unavailable JAIMIE JETT A Attending Unavailable JERILYN, ANDRY A Primary Care Unavailable MARIA DE JESUS OSWALD Referring Unavailable JERILYN, ANDRY A Primary Care Unavailable JERILYN, ANDRY A Primary Care Unavailable LEW BIRD Referring Unavailable JERILYN, ANDRY A Primary Care Unavailable LEW BIRD Attending Unavailable JERILYN, ANDRY A Primary Care Unavailable IRMA PEREZ Referring Unavailable JERILYN, ANDRY A Primary Care Unavailable TERI GROSS Attending Unavailable TERI GROSS Referring Unavailable Allergies Allergy Classification Reported Allergen(s) Allergy Type Date of Onset Reaction(s) Facility HMG-CoA Reductase Inhibitors (statins) (1 source) atorvastatin Drug Allergy 06-19-19 17 Other: See Comments [facility] [place] Opioid Agonists (4 sources) Codeine Drug Allergy 02-11-20 05 Unknown, Other: See Comments [facility] [place] Streptococcus pneumoniae type 1 capsular polysaccharide antigen / Streptococcus pneumoniae type 10A capsular polysaccharide antigen / Streptococcus pneumoniae type 11A capsular polysaccharide antigen / Streptococcus pneumoniae type 12F capsular polysaccharide antigen / Streptococcus pneumoniae type 14 capsular polysaccharide antigen / Streptococcus pneumoniae type 15B capsular polysaccharide antigen / Streptococcus pneumoniae type 17F capsular polysaccharide antigen / Streptococcus pneumoniae type 18C capsular polysaccharide antigen / Streptococcus pneumoniae type 19A capsular polysaccharide antigen / Streptococcus pneumoniae type 19F capsular polysaccharide antigen / Streptococcus pneumoniae type 2 capsular polysaccharide antigen / Streptococcus pneumoniae type 20 capsular polysaccharide antigen / Streptococcus pneumoniae type 22F capsular polysaccharide antigen / Streptococcus pneumoniae type 23F capsular polysaccharide antigen / Streptococcus pneumoniae type 3 capsular polysaccharide antigen / Streptococcus pneumoniae type 33F capsular polysaccharide antigen / Streptococcus pneumoniae type 4 capsular polysaccharide antigen / Streptococcus pneumoniae type 5 capsular polysaccharide antigen / Streptococcus pneumoniae type 6B capsular polysaccharide antigen / Streptococcus pneumoniae type 7F capsular polysaccharide antigen / Streptococcus pneumoniae type 8 capsular polysaccharide antigen / Streptococcus pneumoniae type 9N capsular polysaccharide antigen / Streptococcus pneumoniae type 9V capsular polysaccharide antigen (1 source) Streptococcus pneumoniae type 1 capsular polysaccharide antigen / Streptococcus pneumoniae type 10A capsular polysaccharide antigen / Streptococcus pneumoniae type 11A capsular polysaccharide antigen / Streptococcus pneumoniae type 12F capsular polysaccharide antigen / Streptococcus pneumoniae type 14 capsular polysaccharide antigen / Streptococcus pneumoniae type 15B capsular polysaccharide antigen / Streptococcus pneumoniae type 17F capsular polysaccharide antigen / Streptococcus pneumoniae type 18C capsular polysaccharide antigen / Streptococcus pneumoniae type 19A capsular polysaccharide antigen / Streptococcus pneumoniae type 19F capsular polysaccharide antigen / Streptococcus pneumoniae type 2 capsular polysaccharide antigen / Streptococcus pneumoniae type 20 capsular polysaccharide antigen / Streptococcus pneumoniae type 22F capsular polysaccharide antigen / Streptococcus pneumoniae type 23F capsular polysaccharide antigen / Streptococcus pneumoniae type 3 capsular polysaccharide antigen / Streptococcus pneumoniae type 33F capsular polysaccharide antigen / Streptococcus pneumoniae type 4 capsular polysaccharide antigen / Streptococcus pneumoniae type 5 capsular polysaccharide antigen / Streptococcus pneumoniae type 6B capsular polysaccharide antigen / Streptococcus pneumoniae type 7F capsular polysaccharide antigen / Streptococcus pneumoniae type 8 capsular polysaccharide antigen / Streptococcus pneumoniae type 9N capsular polysaccharide antigen / Streptococcus pneumoniae type 9V capsular polysaccharide antigen Drug Allergy 03-25-20 13 Swelling [facility] [place] (3 sources) acetaminophen / propoxyphene drug allergy 08-20-19 17 [facility] Work Phone: (20 sources) codeine; Translations: [CODEINE] drug allergy 02-11-20 05 Unknown [facility] Work Phone: (4 sources) meperidine; Translations: [DEMEROL] drug allergy 08-20-19 17 [facility] Work Phone: (20 sources) morphine; Translations: [morphine] drug allergy 07-06-19 15 Other: See Comments [facility] Work Phone: [phone] (3 sources) PNEUMONIA VACCINE drug allergy 08-21-19 17 [facility] Work Phone: (1 source) meperidine Drug Allergy [facility] (1 source) propoxyphene Drug Allergy [facility] (1 source) DARVOCET-N 100 Drug allergy (disorder) AOF [facility] (20 sources) atorvastatin; Translations: [ATORVASTATIN CALCIUM] Drug Allergy 06-19-19 17 Other: See Comments [facility] [place] Work Phone: (20 sources) Meperidine; Translations: [MEPERIDINE HCL] Drug Allergy 02-11-20 05 Unknown [facility] [place] Work Phone: (20 sources) Propoxyphene; Translations: [PROPOXYPHENE HCL] Drug Allergy 02-11-20 05 Unknown [facility] [place] Work Phone: (20 sources) Streptococcus pneumoniae type 1 capsular polysaccharide antigen / Streptococcus pneumoniae type 10A capsular polysaccharide antigen / Streptococcus pneumoniae type 11A capsular polysaccharide antigen / Streptococcus pneumoniae type 12F capsular polysaccharide antigen / Streptococcus pneumoniae type 14 capsular polysaccharide antigen / Streptococcus pneumoniae type 15B capsular polysaccharide antigen / Streptococcus pneumoniae type 17F capsular polysaccharide antigen / Streptococcus pneumoniae type 18C capsular polysaccharide antigen / Streptococcus pneumoniae type 19A capsular polysaccharide antigen / Streptococcus pneumoniae type 19F capsular polysaccharide antigen / Streptococcus pneumoniae type 2 capsular polysaccharide antigen / Streptococcus pneumoniae type 20 capsular polysaccharide antigen / Streptococcus pneumoniae type 22F capsular polysaccharide antigen / Streptococcus pneumoniae type 23F capsular polysaccharide antigen / Streptococcus pneumoniae type 3 capsular polysaccharide antigen / Streptococcus pneumoniae type 33F capsular polysaccharide antigen / Streptococcus pneumoniae type 4 capsular polysaccharide antigen / Streptococcus pneumoniae type 5 capsular polysaccharide antigen / Streptococcus pneumoniae type 6B capsular polysaccharide antigen / Streptococcus pneumoniae type 7F capsular polysaccharide antigen / Streptococcus pneumoniae type 8 capsular polysaccharide antigen / Streptococcus pneumoniae type 9N capsular polysaccharide antigen / Streptococcus pneumoniae type 9V capsular polysaccharide antigen; Translations: [PNEUMOCOCCAL 23-SINAN PS VACCINE] Drug Allergy 03-25-20 13 Swelling [facility] [place] Work Phone: (20 sources) Bees; Translations: [BEES] Allergy to substance 07-06-19 [facility] [place] Work Phone: (20 sources) Propoxyphene N-Acetaminophen; Translations: [PROPOXYPHENE N-ACETAMINOPHEN] Propensity to adverse reactions to drug 02-11-20 [facility] Work Phone: (5 sources) Acetaminophen Drug Allergy 09-03-19 Unknown [facility] (5 sources) atorvastatin Drug Allergy 09-03-19 23 leg weakness [facility] (5 sources) Pneumococcal vaccine Drug Allergy 09-03-19 23 localized swelling [facility] (6 sources) Propoxyphene; Translations: [propoxyphene napsylate] Drug Allergy 09-03-19 Unknown [facility] (5 sources) bee venom protein (honey bee) Allergy to substance 09-03-19 Hives [facility] (1 source) Acetaminophen Drug Allergy 07-11-19 [facility]ository (1 source) atorvastatin Drug Allergy 07-11-19 [facility] (1 source) Meperidine Drug Allergy 07-11-19 25 [facility] (1 source) Pneumococcal vaccine Drug Allergy 07-11-19 [facility] (1 source) Propoxyphene Drug Allergy 07-11-19 [facility] (1 source) bee venom protein (honey bee) Drug allergy (disorder) 07-11-19 [facility] Medications Current Medications Medication Drug Class(es) Dates Sig (Normalized) Sig (Original) acetaminophen 500 mg oral tablet (17 sources) take 2 tablets by mouth twice daily acetaminophen (TYLENOL EXTRA STRENGTH) 500 mg tablet Take 1,000 mg by mouth two times a day. Active [id number] 200 actuat albuterol 0.09 mg/actuat metered dose inhaler (20 sources) beta2-Adrenergic Agonist Start: 09-18-2023 End: 09-18-2023 albuterol 2.5 mg/0.5 mL 2.5 mg nebulizer solution (PROVENTIL) Start: 09-18-2023 End: 09-18-2023 albuterol 2.5 mg/0.5 mL 2.5 mg nebulizer solution (PROVENTIL) Start: 02-20-2023 End: 05-24-2024 take 2 puff(s) by inhalation every six hours as needed for wheezing albuterol HFA (PROVENTIL HFA, VENTOLIN HFA) 90 mcg/actuation inhaler Indications: Pulmonary emphysema, unspecified emphysema type (HCC) Inhale 2 Puffs as instructed every 6 hours as needed for wheezing/shortness of breath. 1 Each 3 05/24/2024 Active Start: 10-24-2021 take 1 puff(s) by in halation every six hours Albuterol Sulfate (Ventolin Hfa) 90 mcg/actuation HFA aerosol inhaler Active 2 PUFF INHALATION EVERY 6 HOURS October 24, 2021 3:10pm Start: 03-04-2021 End: 02-20-2023 take 2 puff(s) by inhalation every six hours as needed for wheezing albuterol HFA (VENTOLIN HFA) 90 mcg/actuation inhaler Inhale 2 Puffs as instructed every 6 hours as needed for wheezing/shortness of breath. 18 g 3 09/03/2021 03/07/2022 Discontinued Start: 09-08-2016 End: 10-24-2021 Albuterol Sulfate (Ventolin Hfa (Sp)) 1 INHALER inhaler Discontinued 1 PUFF INHALATION EVERY 4 HOURS NEEDED September 08, 2016 12:00am October 24, 2021 3:17pm Start: 08-19-2016 VENTOLIN HFA 1 08 (90 Base) MCG/ACT AERS As needed - 90mcg/inh ALBUTEROL SULFATE [id number] Natalie Juarez RN Start: 08-19-2016 VENTOLIN HFA 1 08 (90 Base) MCG/ACT AERS As needed - 90mcg/inh ALBUTEROL SULFATE [id number] Natalie Juarez RN Comment on above: Inhale 2 Puffs as in structed every 6 hours as needed for wheezing/shortness of breath. albuterol 0.833 mg/ml / ipratropium bromide 0.167 mg/ml inhalation solution (20 sources) Anticholinergic, beta2-Adrenergic Agonist Start: 09-20-2023 Ipratropium-Albuterol Active 3 ML INHALATION September 20, 2023 12:00am Start: 07-23-2023 End: 07-14-2025 take 3 mL by inhalation every four hours as needed for wheezing ipratropium-albuterol (DUONEB) 0.5 mg-3 mg(2.5 mg base)/3 mL nebu Indications: Asthma-COPD overlap syndrome (HCC) Inhale 3 mL as instructed every 4 hours as needed for wheezing/shortness of breath. 120 Each 11 07/14/2024 07/14/2025 Active Comment on above: Inhale 3 mL as instr ucted every 4 hours as needed for wheezing/shortness of breath. amoxicillin 875 mg oral tablet (1 source) Penicillin-class Antibacterial Start: 05-01-20 End: 05-08-20 take 1 tablet by mouth twice daily amoxicillin (AMOXIL) 875 mg tablet Take 1 tablet by mouth twice daily for 7 days. 14 tablet 0 05/01/2022 05/08/2022 Active Comment on above: Take 1 tablet by alex th twice daily for 7 days. amoxicillin 875 mg / clavulanate 125 mg oral tablet (8 sources) Penicillin-class Antibacterial Start: 08-19-19 End: 08-29-19 take 1 tablet by mouth every twelve hours amoxicillin-clavul anate potassium (AUGMENTIN) 875-125 mg per tablet Indications: Contusion of right upper arm, initial encounter Take 1 tablet by mouth every 12 hours for 10 days. 20 tablet 08/18/2024 08/28/2024 Active Start: 06-21-2024 End: 07-01-2024 take 1 tablet by mouth twice daily amoxicillin-clavulanate potassium (AUGMENTIN) 875-125 mg per tablet Indications: Pneumonia of right upper lobe due to infectious organism Take 1 tablet by mouth two times a day for 10 days. 20 tablet 06/21/2024 07/01/2024 Start: 02-16-2023 End: 02-23-2023 take 1 tablet by mouth twice daily amoxicillin-clavulanic acid (AUGMENTIN) 875-125 mg per tablet Take 1 tablet by mouth two times a day for 7 days. 14 tablet 0 02/16/2023 02/23/2023 Active Comment on above: Take 1 tablet by alex th two times a day for 7 days. azithromycin 250 mg oral tablet (7 sources) Macrolide Antimicrobial Start: 06-21-2024 End: 06-26-2024 azithromycin (ZITHROMAX Z-REX) 250 mg tablet Indications: Pneumonia of right upper lobe due to infectious organism Take 2 tablets day one, then, 1 tablet daily until gone. 6 tablet 06/21/2024 06/26/2024 Active Start: 02-09-2023 End: 09-20-2023 take 2 tablets by mouth once daily Azithromycin (Zithromax) 250 mg tablet Discontinued 250 MG PO DAILY 4 February 09, 2023 12:00am September 20, 2023 1:19pm start on day 2 of therapy Start: 05-15-2022 End: 05-20-2022 azithromycin (ZITHROMAX Z-PA K) 250 mg tablet Take 2 tablets day one, then, 1 tablet daily until gone. 6 tablet 0 05/15/2022 05/20/2022 Active Comment on above: Take 2 tablets day o ne, then, 1 tablet daily until gone. baclofen 10 mg oral tablet (20 sources) gamma-Aminobutyric Acid-ergic Agonist Start: take 1 tablet by mouth every twenty-four hours as needed baclofen 10 mg tablet Take 1 tablet by mouth at bedtime as needed (muscle spasms). 30 tablet 1 04/06/2024 Active benzonatate 100 mg oral capsule (20 sources) Non-narcotic Antitussive Start: End: take 2 capsules by mouth three times daily as needed benzonatate (TESSALON PERLE) 100 mg capsule Indications: Pneumonia of right upper lobe due to infectious organism Take 2 capsules by mouth three times a day as needed for up to 15 days. 90 capsule 06/21/2024 07/06/2024 Active Start: 09-20-2023 take 200 mg by mouth three times daily as needed Benzonatate Active 200 MG PO 3 TIMES DAILY NEEDED September 20, 2023 12:00am Start: 03-12-2023 End: 05-21-2023 take 2 capsules by mouth three times daily as needed benzonatate (TESSALON PERLE) 100 mg capsule Indications: URI, acute Take 2 capsules by mouth three times a day as needed. 30 capsule 03/12/2023 05/21/2023 Discontinued (Course of therapy completed) Start: 05-15-2022 End: 05-22-2023 take 1 capsule by mouth every eight hours as needed Benzonatate 200 mg capsule Take 1 capsule by mouth three times daily as needed. 45 capsule 1 05/15/2022 05/22/2023 Discontinued Comment on above: Take 1 capsule by [facility] three times daily as needed. [facility] times a day as needed. calcium carbonate 1500 mg / cholecalciferol 800 unt chewable tablet (5 sources) Vitamin D Start: 09-08-2016 take 1 tablet by mouth once daily Calcium Carbonate-Vitami n D3 (Calcium 600 With Vit D Chew Tb) 1 EACH tablet,chewable Active 1 EACH PO DAILY September 08, 2016 12:00am Calcium Carbonate / vitamin D3 (20 sources) take 1 tablet by mouth once daily CALCIUM CARBONATE/VITAMI N D3 (CALCIUM + D ORAL) Take 1 tablet by mouth once daily. Active take 1 tablet by mouth once navid y CALCIUM CARBONATE/VITAMIN D3 (CALCIUM + D ORAL) Take 1 tablet by mouth once daily. 0 Active Comment on above: Take 1 tablet by [facility] once daily. cholecalciferol 1.25 mg oral capsule (20 sources) Vitamin D Start: take 1250 ug by mouth every week Cholecalciferol (Vitamin D3) Active 1250 MCG PO EVERY WEEK October 24, 2021 12:00am Start: 03-04-2021 End: 01-14-2024 take 1 capsule by mouth every week cholecalciferol, Vitamin D3, (VITAMIN D3) 1,250 mcg (50,000 unit) cap capsule Indications: Vitamin D deficiency Take 1 capsule by mouth one time a week. 12 capsule 3 01/14/2024 Active Comment on above: Take 1 capsule by [facility] one time a week. cyanocobalamin, vitamin B-12, (VITAMIN B-12 ORAL) (20 sources) take 2 tablets by mouth once daily cyanocobalamin, vitamin B-12, (VITAMIN B-12 ORAL) Take 2 tablets by mouth once daily. Active take 2 tablets by mouth once melquiades ly cyanocobalamin, vitamin B-12, (VITAMIN B-12 ORAL) Take 2 tablets by mouth once daily. 0 Active Comment on above: Take 2 tablets by [facility] once daily. [id number] 0.3 ml EPINEPHrine 1 mg/ml auto-injector (20 sources) alpha-Adrenergic Agonist, beta-Adrenergic Agonist, Catecholamine Start: 10-24-2021 Epinephrine (Epipen) 0.3 mg/0.3 mL auto-injector Active 0.3 MG IM ONCE October 24, 2021 12:00am as a single dose; may repeat once Start: 07-06-2020 EPINEPHrine (E PIPEN) 0.3 mg/0.3 mL auto-injector If symptoms of allergic reaction follow instruction on package insert. 1 Each 07/06/2020 Active Comment on above: If symptoms of aller gic reaction follow instruction on package insert. 30 actuat fluticasone furoate 0.1 mg/actuat / umeclidinium 0.0625 mg/actuat / vilanterol 0.025 mg/actuat dry powder inhaler (20 sources) Anticholinergic, Corticosteroid, beta2-Adrenergic Agonist Start: 09-20-2023 Fluticasone-Umeclidin- Vilanter [Fluticasone Fur. 100 Mcg-Umeclid 62.5 Mcg-Vilant 25 Mcg Inhalat.Powder] (Fluticasone Fur. 100 Mcg-Umeclid 62.5 Mcg-Vilant ) 100-62.5-25 mcg blister with device Active 1 EACH INHALATION DAILY September 20, 2023 12:00am Start: 07-23-2023 End: 07-05-2024 take 1 puff(s) by inhalation once daily maivzqmrnbb-unnlvkdni-qeudingb (TRELEGY ELLIPTA) 100-62.5-25 mcg inhalation powder Indications: [place] (obstructive sleep apnea) Inhale 1 Puff as instructed once daily. 1 Each 07/05/2024 Active Comment on above: Inhale 1 Puff as ins tructed once daily. Iron (20 sources) take 1 tablet by mouth once daily Iron 40 mg cap Take 1 tablet by mouth once daily. Active take 1 tablet by mouth once navid y Iron 40 mg cap Take 1 tablet by mouth once daily. 0 Active Comment on above: Take 1 tablet by alex th once daily. iron carbonyl 45 mg oral tablet (5 sources) Start: 04-22-20 take 45 mg by mouth once daily Iron, Carbonyl Active 45 MG PO DAILY April 22, 2022 1:00am levoFLOXacin 500 mg oral tablet (8 sources) Quinolone Antimicrobial Start: 09-09-19 End: 09-16-19 take 1 tablet by mouth once daily levoFLOXacin (LEVAQUIN) 500 mg tablet Take 1 tablet by mouth once daily for 7 days. 7 tablet 09/08/2024 09/15/2024 Active Start: 07-05-2024 End: 07-12-2024 take 1 tablet by mouth once daily levoFLOXacin (LEVAQUIN) 500 mg tablet Indications: Pulmonary emphysema, unspecified emphysema type (HCC) Take 1 tablet by mouth once daily for 7 days. 7 tablet 07/05/2024 07/12/2024 Active Start: 04-28-2023 End: 05-08-2023 take 1 tablet by mouth once daily levoFLOXacin (LEVAQUIN) 500 mg tablet Take 1 tablet by mouth once daily for 10 days. 10 tablet 04/28/2023 05/08/2023 Comment on above: Take 1 tablet by alex th once daily for 10 days. nirmatrelvir tablet 300 mg (150 mg x 2) and ritonavir tablet 100 mg in a dose pack (PAXLOVID) (1 source) Start: End: nirmatrelvir tablet 300 mg (150 mg x 2) and ritonavir tablet 100 mg in a dose pack (PAXLOVID) Indications: COVID-19 Administer TWO pink nirmatrelvir 150 mg tablets and ONE white ritonavir 100 mg tablet for a total of three tablets twice daily. 30 tablet 0 03/13/2023 03/18/2023 Active Comment on above: Administer TWO pink nirmatrelvir 150 mg tablets and ONE white ritonavir 100 mg tablet for a total of three tablets twice daily. Fenelton-3 Fatty Acids (5 sources) Start: take 1000 mg by mouth once daily Fenel[place]-3 Fatty Acids Active 1000 MG PO DAILY October 23, 2021 11:00pm Start: 10-24-2021 take 1000 mg by mouth once melquiades ly Fenelton-3 Fatty Acids Active 1000 MG PO DAILY October 24, 2021 12:00am omega-3 fatty acids 1,000 mg cap (20 sources) Start: 12-24-2016 take 1 capsule by mouth once daily omega-3 fatty acids 1,000 mg cap Take 1 capsule by mouth once daily. 0 12/24/2016 Active Comment on above: Take 1 capsule by [facility] once daily. omeprazole 40 mg delayed release oral capsule (20 sources) Proton Pump Inhibitor Start: 09-03-2021 End: 07-05-2024 take 1 capsule by mouth twice daily omeprazole (PRILOSEC) 40 mg capsule Indications: GERD without esophagitis Take 1 capsule by mouth two times a day. 180 capsule 1 07/05/2024 Active Start: 08-19-2016 End: 10-24-2021 take 1 capsule by mouth once daily Omeprazole (Prilosec) 40 MG capsule Discontinued 40 MG PO DAILY September 08, 2016 12:00am October 24, 2021 3:08pm Comment on above: Take 1 capsule by [facility] twice daily. Take 1 capsule by [facility] two times a day. pravastatin sodium 40 mg oral tablet (20 sources) HMG-CoA Reductase Inhibitor Start: take 40 mg by mouth at bedtime Pravastatin Active 40 MG PO AT BEDTIME October 29, 2022 8:40am Start: 09-05-2022 End: 07-05-2024 take 1 tablet by mouth once daily pravastatin (PRAVACHOL) 40 mg tablet Indications: 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 Take 1 tablet by mouth once daily. 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 90 tablet 1 09/03/2021 03/07/2022 Discontinued Start: 08-19-2016 End: 10-24-2021 take 10 mg by mouth at bedtime Pravastatin Discontinue d 10 MG PO AT BEDTIME September 08, 2016 12:00am October 24, 2021 3:08pm Comment on above: Take 1 tablet by [facility] once daily. predniSONE 20 mg oral tablet (20 sources) Start: 09-09-2024 take 2 tablets by mouth once daily predniSONE (DELTASONE) 20 mg tablet Take two orally daily for 5 days 10 tablet 09/09/2024 Active Start: 07-05-2024 End: 07-17-2024 predniSONE (DELTASONE) 10 mg tablet Indications: Pulmonary emphysema, unspecified emphysema type (HCC) Take 6 tabs for 3 days, then 4 tabs for 3 days, then 2 tabs for 3 days then 1 tab for 3 days with food. 39 tablet 07/05/2024 07/17/2024 Active Start: 06-21-2024 End: 07-05-2024 predniSONE (DELTASONE) 10 mg tablet Indications: Pneumonia of right upper lobe due to infectious organism Take 40 mg x 3 days, 20 mg x 3 days, 10 mg x 3 days. Take with food, once daily 21 tablet 06/21/2024 07/05/2024 Discontinued (Course of therapy completed) Start: 03-12-2023 End: 03-17-2023 take 2 tablets by mouth once daily predniSONE (DELTASONE) 20 mg tablet Indications: URI, acute Take 2 tablets by mouth once daily for 5 days. 10 tablet 03/12/2023 03/17/2023 Start: 02-16-2023 End: 09-20-2023 predniSONE (DELTASONE) 10 mg tablet Take 4 tabs daily for 3 days, then 2 tabs daily for 3 days, then 1 tab daily for 3 days with food. 21 tablet 02/16/2023 04/16/2023 Discontinued (Course of therapy completed) Start: 05-15-2022 End: 05-20-2022 take 1 tablet by mouth once daily predniSONE (DELTASONE) 20 mg tablet Take 1 tablet by mouth once daily for 5 days. 5 tablet 0 05/15/2022 05/20/2022 Active Start: 05-01-2022 End: 05-06-2022 take 1 tablet by mouth once daily predniSONE (DELTASONE) 20 mg tablet Take 1 tablet by mouth once daily for 5 days. 5 tablet 0 05/01/2022 05/06/2022 Active Comment on above: Take 1 tablet by alex once daily for 5 days. Take 4 tabs daily fo r 3 days, then 2 tabs daily for 3 days, then 1 tab daily for 3 days with food. Take 2 tablets by [facility] once daily for 5 days. topiramate 25 mg oral tablet (10 sources) Start: End: take 1 tablet by mouth once daily at bedtime topiramate (TOPAMAX) 25 mg tablet Indications: Migraine without aura, intractable, without status migrainosus Take 1 tablet by mouth daily at bedtime. 30 tablet 5 07/05/2024 01/01/2025 Active triamcinolone acetonide 0.005 mg/mg topical ointment (20 sources) Corticosteroid Start: 023 End: triamcinolone acetonide topical 0.5 % ointment Indications: Eczema, unspecified type Apply to affected area two times a day. May use up to 2 weeks. 30 g 1 05/19/2024 2024 Active Comment on above: Apply to affected ar ea twice daily. May use up to 2 weeks. Apply to affected ar ea two times a day. May use up to 2 weeks. ubidecarenone 100 mg oral capsule (5 sources) Start: Coenzyme Q10 (Co Q-10) 100 mg capsule Active 100 MG PO AT BEDTIME October 25, 2021 12:00am vitamin b12 1 mg oral tablet (5 sources) Vitamin B12 Start: take 2 tablets by mouth once daily Cyanocobalamin (Vitamin B-12) (Vitamin B-12) 1,000 mcg tablet Active 2000 MCG PO DAILY October 24, 2021 12:00am Completed/Discontinued Medications Medication Drug Class(es) Dates Sig (Normalized) Sig (Original) acetaminophen 325 mg / HYDROcodone bitartrate 5 mg oral tablet (5 sources) Opioid Agonist Start: 06-16-2014 End: 10-24-2021 take 1 tablet by mouth every six hours as needed Hydrocodone-Acetam inophen Discontinued 1 - 2 TABLET PO EVERY 6 HOURS NEEDED June 16, 2014 1:00am October 24, 2021 3:15pm aspirin 81 mg oral tablet (13 sources) Nonsteroidal Anti-inflammatory Drug Start: 10-28-2021 End: 04-22-2022 take 81 mg by mouth once daily Aspirin Discontinued 81 MG PO DAILY October 28, 2021 12:00am April 22, 2022 12:05pm Start: 03-23-2014 End: 10-24-2021 take 1 tablet by mouth once daily Aspirin Discontinued 1 TABLET PO DAILY March 23, 2014 1:00am October 24, 2021 3:14pm betamethasone 0.5 mg/ml / clotrimazole 10 mg/ml topical cream (4 sources) Azole Antifungal, Corticosteroid Start: 04-15-2022 End: 05-15-2022 clotrimazole-betamethasone (LOTRISONE) cream Apply 1 application to affected area twice daily. TO AFFECTED AREA. 45 g 2 04/15/2022 05/15/2022 Comment on above: Apply 1 application to affected area twi ce daily. TO AFFECTED AREA. budesonide / formoterol (20 sources) Corticosteroid, beta2-Adrenergic Agonist Start: 02-20-2023 End: 10-14-2023 take 2 puff(s) by inhalation twice daily budesonide-formoterol (SYMBICORT) 80-4.5 mcg/actuation inhaler Indications: Pulmonary emphysema, unspecified emphysema type (HCC) Inhale 2 Puffs as instructed two times a day. 10.2 g 5 02/20/2023 10/14/2023 Discontinued (Course of therapy completed) Start: 02-20-2023 take 2 puff(s) by in halation twice daily budesonide-formoterol (SYMBICORT) 80-4.5 mcg/actuation inhaler Indications: Pulmonary emphysema, unspecified emphysema type (HCC) Inhale 2 Puffs as instructed two times a day. 10.2 g 5 02/20/2023 Active Start: 03-07-2022 End: 02-20-2023 take 2 puff(s) by inhalation twice daily budesonide-formoterol (SYMBICORT) 80-4.5 mcg/actuation inhaler Inhale 2 Puffs as instructed twice daily. 10.2 g 5 03/07/2022 02/20/2023 Discontinued Start: 03-07-2022 take 2 puff(s) by in halation twice daily budesonide-formoterol (SYMBICORT) 80-4.5 mcg/actuation inhaler Inhale 2 Puffs as instructed twice daily. 10.2 g 5 03/07/2022 Active Start: 10-24-2021 take 1 puff(s) by in halation twice daily Budesonide-Formoterol Active 2 PUFF INHALATION TWICE A DAY October 23, 2021 11:00pm Start: 10-24-2021 take 1 puff(s) by in halation twice daily Budesonide-Formoterol Active 2 PUFF INHALATION TWICE A DAY October 24, 2021 12:00am Start: 09-03-2021 End: 03-07-2022 take 2 puff(s) by inhalation twice daily budesonide-formoterol (SYMBICORT) 80-4.5 mcg/actuation inhaler Inhale 2 Puffs as instructed twice daily. 10.2 g 5 09/03/2021 03/07/2022 Discontinued Start: 09-03-2021 take 2 puff(s) by in halation twice daily budesonide-formoterol (SYMBICORT) 80-4.5 mcg/actuation inhaler Inhale 2 Puffs as instructed twice daily. 10.2 g 5 09/03/2021 Active Start: 09-03-2021 End: 09-03-2021 take 2 puff(s) by inhalation twice daily budesonide-formoterol (SYMBICORT) 80-4.5 mcg/actuation inhaler Inhale 2 Puffs as instructed twice daily. 10.2 g 5 09/03/2021 09/03/2021 Discontinued Start: 03-04-2021 End: 09-03-2021 take 2 puff(s) by inhalation twice daily budesonide-formoterol (SYMBICORT) 80-4.5 mcg/actuation inhaler Inhale 2 Puffs as instructed twice daily. 10.2 g 5 03/04/2021 09/03/2021 Discontinued Start: 08-19-2016 SYMBICORT 80-4 .5 MCG/ACT AERO One-two puffs per day BUDESONIDE-FORMOTEROL FUMARATE [id number] Ronak Barry MD Start: 08-19-2016 SYMBICORT 80-4 .5 MCG/ACT AERO 2 puffs as instructed twice daily BUDESONIDE-FORMOTEROL FUMARATE [id number] Natalie Juarez RN Start: 08-19-2016 SYMBICORT 80-4 .5 MCG/ACT AERO One-two puffs per day BUDESONIDE-FORMOTEROL FUMARATE [id number] Ronak Barry MD Start: 08-19-2016 SYMBICORT 80-4 .5 MCG/ACT AERO 2 puffs as instructed twice daily BUDESONIDE-FORMOTEROL FUMARATE [id number] Natalie Juarez RN Start: 03-23-2014 End: 10-24-2021 Budesonide-Formoterol (Symbi stacey 160/4.5 Mcg Inhaler (Sp)) 1 INHALER inhaler Discontinued 2 PUFF INHALATION DAILY March 23, 2014 1:00am October 24, 2021 3:10pm take 2 puff(s) by in halation twice daily budesonide-formoterol (SYMBICORT) 160-4.5 mcg/actuation inhaler Inhale 2 Puffs as instructed two times a day. Active Comment on above: Inhale 2 Puffs as in structed twice daily. Inhale 2 Puffs as in structed two times a day. 120 actuat budesonide 0.16 mg/actuat / formoterol fumarate 0.0048 mg/actuat / glycopyrrolate 0.009 mg/actuat metered dose inhaler (17 sources) Corticosteroid, beta2-Adrenergic Agonist Start: 04-16-20 End: 10-14-19 24 take 2 puff(s) by inhalation twice daily budesonide-glycopyr -formoterol (BREZTRI AEROSPHERE) 160-9-4.8 mcg/actuation HFA aerosol inhaler Inhale 2 Puffs as instructed two times a day. Each 04/16/2023 10/14/2023 Discontinued (Not on Formulary) Comment on above: Inhale 2 Puffs as in structed two times a day. calcium carbonate / vitamin D (6 sources) Start: 08-20-19 17 take 1 tablet by mouth every twenty-four hours CALCIUM + D 600-200 MG-UNIT TABS One tablet by mouth daily CALCIUM CARBONATE-VITAMIN D Ronak Barry MD Start: 08-19-2016 take 1 tablet by alex th once daily CALCIUM 500 + D 500-125 MG-UNIT TABS One tablet by mouth daily CALCIUM CARBONATE-VITAMIN D [id number] Natalie Juarez RN clopidogrel 75 mg oral tablet (8 sources) [id number] Platelet Inhibitor Start: 08-20-2016 End: 10-24-2021 take 75 mg by mouth once daily Clopidogrel Discontinued 75 MG PO DAILY September 08, 2016 12:00am October 24, 2021 3:14pm doxycycline monohydrate 100 mg oral capsule (6 sources) Tetracycline-clas s Drug Start: 03-20-2023 End: 09-20-2023 take 100 mg by mouth twice daily Doxycycline Monohydrate Discontinued 100 MG PO TWICE A DAY March 20, 2023 1:00am September 20, 2023 1:22pm Start: 02-16-2023 End: 02-23-2023 take 1 tablet by mouth twice daily doxycycline monohydrate 100 mg tablet Take 1 tablet by mouth two times a day for 7 days. 14 tablet 0 02/16/2023 02/23/2023 Active Comment on above: Take 1 tablet by alex th two times a day for 7 days. ergocalciferol 33441 unt oral capsule (8 sources) Provitamin D2 Compound Start: 08-20-19 take 1 capsule by mouth every week VITAMIN D (ERGOCALCIFEROL) 85530 UNIT CAPS One capsule by mouth every week ERGOCALCIFEROL [id number] Natalie Juarez RN Start: 03-23-2014 End: 10-24-2021 take 1 capsule by mouth every week Ergocalciferol (Vitamin D2) (Vitamin D) 50,000 UNIT capsule Discontinued 80780 UNIT PO Q7D March 23, 2014 1:00am October 24, 2021 3:12pm ezetimibe 10 mg oral tablet (5 sources) Dietary Cholesterol Absorption Inhibitor Start: 03-07-2022 End: 05-15-2022 take 1 tablet by mouth once daily ezetimibe (ZETIA) 10 mg tablet Take 1 tablet by mouth once daily. 90 tablet 1 03/07/2022 05/15/2022 Discontinued (Discontinued by Patient) Comment on above: Take 1 tablet by alex th once daily. ferrous sulfate (8 sources) Start: 08-20-2016 take 1 tablet by mouth once daily IRON 325 (65 Fe) MG TABS One tablet by mouth daily FERROUS SULFATE [id number] Ronak Barry MD Start: 06-16-2014 End: 04-22-2022 take 1 tablet by mouth once daily Ferrous Sulfate (Iron Supplement) 325 MG tablet Discontinued 325 MG PO DAILY June 16, 2014 1:00am April 22, 2022 12:03pm Lactobacillus Combination No.4 (Probiotic) 1 EACH capsule (5 sources) Start: 03-23-2014 End: 10-24-2021 take 1 capsule by mouth once daily Lactobacillus Combination No.4 (Probiotic) 1 EACH capsule Discontinued 1 EACH PO DAILY March 23, 2014 12:00am October 24, 2021 2:15pm Start: 03-23-2014 End: 10-24-2021 take 1 capsule by mouth once daily Lactobacillus Combination No.4 (Probiotic) 1 EACH capsule Discontinued 1 EACH PO DAILY March 23, 2014 1:00am October 24, 2021 3:15pm MULTIPLE VITAMINS-MINERALS (2 sources) Start: 08-19-2016 take 1 tablet by mouth once daily NINA MULTIVITAMIN FOR MEN TABS One tablet by mouth daily MULTIPLE VITAMINS-MINERALS [id number] Natalie Juarez RN MULTIPLE VITAMINS-MINERALS (1 source) Start: 08-19-2016 take 1 tablet by mouth once daily NINA MULTIVITAMIN FOR MEN TABS One tablet by mouth daily MULTIPLE VITAMINS-MINERALS [id number] Natalie Juarez RN Multivitamin With Folic Acid (Thera) 1 TABLET tablet (5 sources) Start: 06-16-2014 End: 10-24-2021 take 1 tablet by mouth once daily Multivitamin With Folic Acid (Thera) 1 TABLET tablet Discontinued 1 TABLET PO DAILY June 16, 2014 12:00am October 24, 2021 2:15pm Start: 06-16-2014 End: 10-24-2021 take 1 tablet by mouth once daily Multivitamin With Folic Acid (Thera) 1 TABLET tablet Discontinued 1 TABLET PO DAILY June 16, 2014 1:00am October 24, 2021 3:15pm nitroglycerin 0.4 mg sublingual tablet (20 sources) Nitrate Vasodilator Start: 10-24-2021 End: 07-05-2024 nitroglycerin sublingual (NITROSTAT) 0.4 mg SL tablet Dissolve 1 tablet under the tongue every 5 minutes as needed for chest pain. Max of three in a row 25 tablet 1 06/08/2023 07/05/2024 Discontinued (Discontinued by another Health Care Provider) Comment on above: Dissolve 1 tablet un alexia the tongue every 5 minutes as needed for chest pain. Max of three in a row PROBIOTIC PRODUCT (2 sources) Start: 08-20-2016 take 1 tablet by mouth once daily PROBIOTIC DAILY CAPS One tablet by mouth daily PROBIOTIC PRODUCT [id number] Ronak Barry MD PROBIOTIC PRODUCT (1 source) Start: 08-20-2016 take 1 tablet by mouth once daily PROBIOTIC DAILY CAPS One tablet by mouth daily PROBIOTIC PRODUCT [id number] Ronak Barry MD B COMPLEX VITAMINS (8 sources) Start: 08-19-2016 take 1 tablet by mouth once daily VITAMIN B COMPLEX TABS One tablet by mouth daily B COMPLEX VITAMINS [id number] Natalie Juarez RN Start: 03-23-2014 End: 10-24-2021 take 1 tablet by mouth once daily Vitamin B Complex Discontinued 1 TABLET PO DAILY March 23, 2014 12:00am October 24, 2021 2:16pm Start: 03-23-2014 End: 10-24-2021 take 1 tablet by mouth once daily Vitamin B Complex Discontinued 1 TABLET PO DAILY March 23, 2014 1:00am October 24, 2021 3:16pm zolpidem tartrate 5 mg oral tablet (8 sources) gamma-Aminobutyric Acid-ergic Agonist Start: 08-19-2016 End: 10-24-2021 take 5 mg by mouth at bedtime as needed Zolpidem Discontinued 5 MG PO AT BEDTIME NEEDED September 08, 2016 12:00am October 24, 2021 3:16pm Problems Active Problems Problem Classification Problem Date Documented Da te Episodic/Chronic Acute bronchitis (2 sources) Acute bronchitis; Translations: [Acute bronchitis, unspecified] Onset: 09-09-2024 Episodic Allergic reactions (5 sources) Eczema; Translations: [Dermatitis, unspecified] Episodic Asthma (5 sources) Asthma-chronic obstructive pulmonary disease overlap syndrome; Translations: [Asthma-COPD overlap syndrome] 12-07-2023 Chronic Chronic obstructive pulmonary disease and bronchiectasis (20 sources) Pulmonary emphysema; Translations: [Emphysema, unspecified] Onset: 4 10-24-2019 Chronic Chronic obstructive pulmonary disease and bronchiectasis (1 source) Bronchitis; Translations: [Bronchitis, not specified as acute or chronic] Episodic Coronary atherosclerosis and other heart disease (20 sources) Angina pectoris; Translations: [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] Onset: 7 08-20-2016 Chronic Diseases of white blood cells (3 sources) Granulomatous disorder; 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] 07-23-2023 Chronic Disorders of lipid metabolism (20 sources) Hyperlipidemia; Translations: [Mixed hyperlipidemia] Onset: 7 08-19-2016 Chronic Diverticulosis and diverticulitis (20 sources) Diverticulosis of colon; Translations: [Diverticulosis of large intestine without perforation or abscess without bleeding] Onset: 9 06-24-2018 Chronic Esophageal disorders (20 sources) Gastroesophageal reflux disease without esophagitis; Translations: [Gastro-esophageal reflux disease without esophagitis] Onset: 7 08-07-2016 Chronic Headache; including migraine (20 sources) Chronic intractable migraine without aura; Translations: [Chronic migraine without aura, intractable, without status migrainosus] Onset: 9 01-25-2019 Chronic Miscellaneous mental health disorders (20 sources) Primary insomnia; Translations: [Primary insomnia] Onset: 6 12-14-2015 Chronic Mycoses (1 source) Tinea pedis; Translations: [Tinea pedis] Episodic Nonspecific chest pain (16 sources) Chest pain; Translations: [Chest pain on exertion] Onset: 7 08-19-2016 Episodic Nutritional deficiencies (20 sources) Vitamin D deficiency; Translations: [Vitamin D deficiency, unspecified] Onset: 6 12-14-2015 Chronic Nutritional deficiencies (2 sources) Finding of substance level; Translations: [Dietary zinc deficiency] Onset: 5 06-15-2024 Episodic Other circulatory disease (20 sources) Disorder of carotid artery; Translations: [Disorder of arteries and arterioles, unspecified] Onset: 7 10-26-2019 Chronic Other circulatory disease (1 source) Disorder of arteries and arterioles, unspecified; Translations: [Bilateral carotid artery disease, unspecified type (HCC)] Onset: 2 Chronic Other circulatory disease (1 source) Abnormal peripheral pulse; Translations: [Other specified symptoms and signs involving the circulatory and respiratory systems] Episodic Other circulatory disease (3 sources) Elevated blood pressure; Translations: [Elevated blood-pressure reading, without diagnosis of hypertension] 05-18-2023 Episodic Other connective tissue disease (20 sources) Cramp in lower limb; Translations: [Sleep related leg cramps] Onset: 4 04-06-2024 Chronic Other connective tissue disease (1 source) Pain of left hand; Translations: [Pain in left hand] Episodic Other connective tissue disease (1 source) Plantar fasciitis; Translations: [Plantar fascial fibromatosis] 05-19-2024 Episodic Other connective tissue disease (1 source) Cramp and spasm; Translations: [Cramp and spasm] Onset: 4 Episodic Other gastrointestinal disorders (20 sources) Malabsorption syndrome; Translations: [Intestinal malabsorption, unspecified] Onset: 9 10-13-2018 Chronic Other gastrointestinal disorders (1 source) Intestinal malabsorption, unspecified; Translations: [Malabsorption syndrome] Onset: 9 Chronic Other gastrointestinal disorders (20 sources) H/O: abdominal hernia; Translations: [Personal history of other diseases of the digestive system] 05-06-2021 Episodic Other gastrointestinal disorders (5 sources) Dysphagia; Translations: [Dysphagia, unspecified] 09-24-2022 Episodic Other gastrointestinal disorders (1 source) Dysphagia, unspecified; Translations: [Dysphagia, unspecified] 09-24-2022 Episodic Other lower respiratory disease (8 sources) Dyspnea on exertion; Translations: [Other forms of dyspnea] Onset: 7 08-20-2016 Episodic Other lower respiratory disease (4 sources) Cough; Translations: [Cough] 02-17-2023 Episodic Other lower respiratory disease (2 sources) Other nonspecific abnormal finding of lung field; Translations: [Other nonspecific abnormal finding of lung field] Onset: 5 04-16-2023 Episodic Other lower respiratory disease (2 sources) Dyspnea; Translations: [Shortness of breath] 04-28-2023 Episodic Other lower respiratory disease (6 sources) Multiple nodules of lung; Translations: [Other nonspecific abnormal finding of lung field] 07-23-2023 Episodic Other lower respiratory disease (1 source) Hypoxemia; Translations: [Hypoxemia] 09-20-2023 Episodic Other lower respiratory disease (2 sources) Cough; Translations: [Acute cough] 07-01-2024 Episodic Other lower respiratory disease (2 sources) Wheezing; Translations: [Wheezing] 07-01-2024 Episodic Other lower respiratory disease (1 source) Shortness of breath; Translations: [Shortness of breath] Onset: 5 Episodic Other lower respiratory disease (1 source) Wheezing; Translations: [Wheezing] Onset: 5 Episodic Other skin disorders (2 sources) Nail problem; Translations: [Nail disorder, unspecified] Episodic Other skin disorders (1 source) Ingrowing toenail; Translations: [Ingrowing nail] Episodic Otitis media and related conditions (1 source) Acute suppurative otitis media without spontaneous rupture of ear drum; Translations: [Acute suppurative otitis media without spontaneous rupture of ear drum, right ear] Episodic Pneumonia (except that caused by tuberculosis or sexually transmitted disease) (7 sources) Infective pneumonia; Translations: [Pneumonia, unspecified organism] 02-16-2023 Episodic Residual codes; unclassified (20 sources) Obstructive sleep apnea syndrome; Translations: [Obstructive sleep apnea (adult) (pediatric)] Onset: 7 01-25-2019 Chronic Residual codes; unclassified (1 source) Pain; Translations: [Pain, unspecified] 05-19-2024 Episodic Respiratory failure; insufficiency; arrest (adult) (2 sources) Respiratory failure; Translations: [Respiratory failure, unspecified, unspecified whether with hypoxia or hypercapnia] 09-20-2023 Episodic Screening and history of mental health and substance abuse codes (20 sources) Ex-smoker; Translations: [Personal history of nicotine dependence] Onset: 1 03-04-2021 Episodic Spondylosis; intervertebral disc disorders; other back problems (20 sources) Disorder of lumbar disc; Translations: [Unspecified thoracic, thoracolumbar and lumbosacral intervertebral disc disorder] Onset: 6 05-07-2021 Chronic Superficial injury; contusion (1 source) Contusion of right upper arm; Translations: [Contusion of right upper arm, initial encounter] 08-18-2024 Episodic Unclassified (1 source) Long-term drug therapy; Translations: [Other drafter civil (cad) (current) drug therapy] Onset: 08-19-2016 Unclassified (1 source) Acute cough; Translations: [Acute cough] Onset: Viral infection (3 sources) Respiratory syncytial virus infection; Translations: [Other specified viral diseases] 05-18-2023 Episodic Past or Other Problems Problem Classification Problem Date Documented Da te Episodic/Chronic Abdominal hernia (20 sources) Obstructed diaphragmatic hernia; Translations: [Diaphragmatic hernia with obstruction, without gangrene] Resolved: 01-13-2013 01-13-2013 Episodic Abdominal pain (20 sources) Chronic abdominal pain; Translations: [Unspecified abdominal pain] Onset: 04-18-2019 04-18-2019 Episodic Administrative/social admission (20 sources) Advance directive discussed with patient; Translations: [Other specified counseling] Onset: 09-03-2021 09-03-2021 Episodic Deficiency and other anemia (20 sources) Iron deficiency anemia secondary to inadequate dietary iron intake; Translations: [Other iron deficiency anemias] Onset: 01-17-2019 01-25-2019 Episodic Deficiency and other anemia (1 source) Other iron deficiency anemias; Translations: [Iron deficiency anemia secondary to inadequate dietary iron intake] Onset: 05-26-2022 Episodic Diabetes mellitus without complication (20 sources) Hyperglycemia; Translations: [Impaired fasting glucose] Onset: 01-25-2019 01-25-2019 Episodic Diseases of mouth; excluding dental (3 sources) Mouth polyp; Translations: [Other lesions of oral mucosa] Onset: 10-02-2023 Episodic Gastrointestinal hemorrhage (20 sources) Hemorrhage of rectum and anus; Translations: [Hemorrhage of anus and rectum] Resolved: 01-13-2013 01-13-2013 Episodic Headache; including migraine (20 sources) Posttraumatic headache; Translations: [Post-traumatic headache, unspecified, not intractable] Onset: 12-14-2015 05-07-2021 Episodic Hemorrhoids (20 sources) Hemorrhoids; Translations: [Unspecified hemorrhoids] Onset: 08-29-2020 03-04-2021 Episodic Immunizations and screening for infectious disease (2 sources) Vaccination needed; Translations: [Encounter for immunization] Onset: 06-15-2024 06-15-2024 Episodic Other aftercare (2 sources) Other retirement (current) drug therapy; Translations: [Other drafter civil (cad) (current) drug therapy] Onset: 08-19-2016 08-19-2016 Episodic Other aftercare (20 sources) Patient encounter status; Translations: [Other retirement (current) drug therapy] Onset: 12-10-2016 08-29-2020 Episodic Other connective tissue disease (3 sources) Bursitis of right shoulder; Translations: [Bursitis of right shoulder] Onset: 01-01-2017 Episodic Other gastrointestinal disorders (20 sources) History of bypass of stomach; Translations: [Bariatric surgery status] Onset: 10-13-2018 10-13-2018 Episodic Other gastrointestinal disorders (1 source) Bariatric surgery status; Translations: [History of gastric bypass] Onset: 10-13-2018 Episodic Other lower respiratory disease (2 sources) Hypoxemia; Translations: [Hypoxemia] Onset: 09-30-2023 09-20-2023 Episodic Other male genital disorders (20 sources) Disorder of prostate; Translations: [Disorder of prostate, unspecified] Onset: 08-29-2020 08-29-2020 Episodic Other male genital disorders (1 source) Disorder of prostate, unspecified; Translations: [Prostate disorder] Onset: 08-29-2020 Episodic Other nutritional; endocrine; and metabolic disorders (3 sources) Body mass index (BMI) 27.0-27.9, adult; Translations: [Body mass index (BMI) 27.0-27.9, adult] Onset: 08-20-2016 08-20-2016 Episodic Other upper respiratory infections (6 sources) Acute upper respiratory infection; Translations: [Acute upper respiratory infection, unspecified] Onset: 09-18-2023 Episodic Residual codes; unclassified (20 sources) Family history of cancer of colon; Translations: [Family history of malignant neoplasm of digestive organs] Onset: 08-29-2020 05-07-2021 Episodic Residual codes; unclassified (20 sources) Active living will ; Translations: [Other specified health status] Onset: 03-07-2022 Episodic Residual codes; unclassified (1 source) Pain, unspecified; Translations: [Pain] Onset: 05-19-2024 Episodic Spondylosis; intervertebral disc disorders; other back problems (20 sources) Chronic low back pain; Translations: [Chronic low back pain] Onset: 12-14-2015 12-14-2015 Episodic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 07/30/2106, Sees Dr. Collazo. HAs BiPaP Peptic ulcer, unspecified site, unspecified as acute or chronic, without mention of hemorrhage, perforation, or obstruction Post-traumatic headache 12/14/2015 After a fall o (more content not included)... Normal [facility] 25(OH)D3 [facility] 25-hydroxyvitamin D3 [Mass/Vol] 65.9 ng/mL Normal 31.0-80.0 [facility] Comment on above: Order Comment: Speci men Type: BLOOD SPECIMENOrdering Facility: [facility] Address: [address] [place] [address] Performed By: #### 1 989-3 ####[facility] LABCLIA [id number] [facility] [place]ER[place]MIC[place] [id number] [place] CBC W Auto Differential pane l (Bld)on 05-23-2024 Basophils (Bld) [#/Vol] 0.04 10*3/uL Normal <0.11 [facility] Comment on above: Order Comment: Speci men Type: BLOOD SPECIMENOrdering Facility: [facility] Address: [address] [place] [address] Performed By: #### 5 7021-8 ####[facility] MILLTOWNCLIA [id number] [place] [address] [place] Basophils/100 WBC (Bld) 0.9 % Normal [facility] Comment on above: Order Comment: Speci men Type: BLOOD SPECIMENOrdering Facility: [facility] Address: [address] [place] [address] Performed By: #### 5 7021-8 ####[facility] YOGIWKALILIA [id number] [place] [address] [place] Differential cell count method Nom (Bld) Auto Normal [facility] Comment on above: Order Comment: Speci men Type: BLOOD SPECIMENOrdering Facility: [facility] Address: [address] [place] [address] Performed By: #### 5 7021-8 ####[facility] YOGITHANHLIA [id number] [place] [address] [place] Eosinophils (Bld) [#/Vol] 0.30 10*3/uL Normal <0.46 [facility] Comment on above: Order Comment: Speci men Type: BLOOD SPECIMENOrdering Facility: [facility] Address: [address] [place] [address] Performed By: #### 5 7021-8 ####[facility] YOGIGarettKALILIA [id number] [place] [address] [place] Eosinophils/100 WBC (Bld) 6.4 % Normal [facility] Comment on above: Order Comment: Speci men Type: BLOOD SPECIMENOrdering Facility: [facility] Address: [address] [place] [address] Performed By: #### 5 7021-8 ####[facility] YOGIPEPINNCLIA [id number] [place] [address] [place] Erythrocyte distribution width (RBC) [Ratio] 12.3 % Normal 11.5-15.0 [facility] Comment on above: Order Comment: Speci men Type: BLOOD SPECIMENOrdering Facility: [facility] Address: [address] [place] [address] Performed By: #### 5 7021-8 ####[facility] MARY JANE SHUBHAMDONALDLove [id number] [place] [address] [place] Hematocrit (Bld) [Volume fraction] 39.7 % Normal 39.0-51.0 [facility] Comment on above: Order Comment: Speci men Type: BLOOD SPECIMENOrdering Facility: [facility] Address: [address] [place] [address] Performed By: #### 5 7021-8 ####[facility] WALESELINOR [id number] [place] [address] [place] Hemoglobin (Bld) [Mass/Vol] 14.0 g/dL Normal 13.0-17.0 [facility] Comment on above: Order Comment: Speci men Type: BLOOD SPECIMENOrdering Facility: [facility] Address: [address] [place] [address] Performed By: #### 5 7021-8 ####[facility] WALESELINOR [id number] [place] [address] [place] Immature granulocytes (Bld) [#/Vol] 10*3/uL Normal <0.10 [facility] Comment on above: Order Comment: Speci men Type: BLOOD SPECIMENOrdering Facility: [facility] Address: [address] [place] [address] Performed By: #### 5 7021-8 ####[facility] WALESNCLIA [id number] [place] [address] [place] Immature granulocytes/100 WBC (Bld) 0.4 % Normal [facility] Comment on above: Order Comment: Speci men Type: BLOOD SPECIMENOrdering Facility: [facility] Address: [address] [place] [address] Performed By: #### 5 7021-8 ####[facility] WALESNCLIA [id number] [place] [address] [place] Lymphocytes (Bld) [#/Vol] 1.43 10*3/uL Normal 1.00-4.00 [facility] Comment on above: Order Comment: Speci men Type: BLOOD SPECIMENOrdering Facility: [facility] Address: [address] [place] [address] Performed By: #### 5 7021-8 ####[facility] WALESNCA [id number] [place] [address] [place] Lymphocytes/100 WBC (Bld) 30.4 % Normal [facility] Comment on above: Order Comment: Speci men Type: BLOOD SPECIMENOrdering Facility: [facility] Address: [address] [place] [address] Performed By: #### 5 7021-8 ####[facility] AN[facility] HOSPITALLI [id number] [place] [address] [place] MCH (RBC) [Entitic mass] 31.1 pg Normal 26.0-34.0 [facility] Comment on above: Order Comment: Speci men Type: BLOOD SPECIMENOrdering Facility: [facility] Address: [address] [place] [address] Performed By: #### 5 7021-8 ####[facility] AN[facility] HOSPITALLIA [id number] [place] [address] [place] MCHC (RBC) [Mass/Vol] 35.3 g/dL Normal 30.5-36.0 [facility] Comment on above: Order Comment: Speci men Type: BLOOD SPECIMENOrdering Facility: [facility] Address: [address] [place] [address] Performed By: #### 5 7021-8 ####[facility] WALESNCLI [id number] [place] [address] [place] MCV (RBC) [Entitic vol] 88.2 fL Normal 80.0-100.0 [facility] Comment on above: Order Comment: Speci men Type: BLOOD SPECIMENOrdering Facility: [facility] Address: [address] [place] [address] Performed By: #### 5 7021-8 ####[facility] [id number] [place] [address] [place] Monocytes (Bld) [#/Vol] 0.34 10*3/uL Normal <0.87 [facility] Comment on above: Order Comment: Speci men Type: BLOOD SPECIMENOrdering Facility: [facility] Address: [address] [place] [address] Performed By: #### 5 7021-8 ####[facility] [id number] [place] [address] [place] Monocytes/100 WBC (Bld) 7.2 % Normal [facility] Comment on above: Order Comment: Speci men Type: BLOOD SPECIMENOrdering Facility: [facility] Address: [address] [place] [address] Performed By: #### 5 7021-8 ####[facility] [id number] [place] [address] [place] Neutrophils (Bld) [#/Vol] 2.57 10*3/uL Normal 1.45-7.50 [facility] Comment on above: Order Comment: Speci men Type: BLOOD SPECIMENOrdering Facility: [facility] Address: [address] [place] [address] Performed By: #### 5 7021-8 ####[facility] [id number] [place] [address] [place] Neutrophils/100 WBC (Bld) 54.7 % Normal [facility] Comment on above: Order Comment: Speci men Type: BLOOD SPECIMENOrdering Facility: [facility] Address: [address] [place] [address] Performed By: #### 5 7021-8 ####[facility] WALESNCPILAR [id number] [place] [address] [place] Nucleated RBC (Bld) [#/Vol] 10*3/uL Normal <0.01 [facility] Comment on above: Order Comment: Speci men Type: BLOOD SPECIMENOrdering Facility: [facility] Address: [address] [place] [address] Performed By: #### 5 7021-8 ####[facility]ESNCMO[facility] [id number] [place] [address] [place] Nucleated RBC/100 WBC (Bld) [Ratio] 0.0 /100 WBC Normal [facility] Comment on above: Order Comment: Speci men Type: BLOOD SPECIMENOrdering Facility: [facility] Address: [address] [place] [address] Performed By: #### 5 7021-8 ####[facility] [id number] [place] [address] [place] Platelet mean volume (Bld) [Entitic vol] 8.4 fL Low 9.0-12.7 [facility] Comment on above: Order Comment: Speci men Type: BLOOD SPECIMENOrdering Facility: [facility] Address: [address] [place] [address] Performed By: #### 5 7021-8 ####[facility] [id number] [place] [address] [place] Platelets (Bld) [#/Vol] 227 10*3/uL Normal 150-400 [facility] Comment on above: Order Comment: Speci men Type: BLOOD SPECIMENOrdering Facility: [facility] Address: [address] [place] [address] Performed By: #### 5 7021-8 ####[facility] YOGIGarettNCLIA [id number] [place] [address] [place] RBC (Bld) [#/Vol] 4.50 10*6/uL Normal 4.20-6.00 [facility] Comment on above: Order Comment: Speci men Type: BLOOD SPECIMENOrdering Facility: [facility] Address: [address] [place] [address] Performed By: #### 5 7021-8 ####[facility] WALESNCLIA [id number] [place] [address] [place] WBC (Bld) [#/Vol] 4.70 10*3/uL Normal 3.70-11.00 [facility] Comment on above: Order Comment: Speci men Type: BLOOD SPECIMENOrdering Facility: [facility] Address: [address] [place] [address] Performed By: #### 5 7021-8 ####[facility] WALESNCLIA [id number] [place] [address] [place] Comprehensive metabolic 2000 panelon 05-23-2024 Albumin [Mass/Vol] 4.5 g/dL Normal 3.9-4.9 [facility] Comment on above: Order Comment: Speci men Type: BLOOD SPECIMENOrdering Facility: [facility] Address: [address] [place], [place] [address] Performed By: #### 2 4323-8 ####[facility] WALESNCLIA [id number] [place] [address] [place] ALP [Catalytic activity/Vol] 68 U/L Normal 38-113 [facility] Comment on above: Order Comment: Speci men Type: BLOOD SPECIMENOrdering Facility: [facility] Address: [address] [place] [address] Performed By: #### 2 4323-8 ####[facility] MILLTOWNCLIA [id number] [place] [address] [place] ALT [Catalytic activity/Vol] 35 U/L Normal 10-54 [facility] Comment on above: Order Comment: Speci men Type: BLOOD SPECIMENOrdering Facility: [facility] Address: [address] [place] [address] Performed By: #### 2 4323-8 ####[facility] MILLTOWNCLIA [id number] [place] [address] [place] Anion gap [Moles/Vol] 8 mmol/L Normal 8-15 [facility] Comment on above: Order Comment: Speci men Type: BLOOD SPECIMENOrdering Facility: [facility] Address: [address] [place] [address] Performed By: #### 2 4323-8 ####[facility] MILLTOWNCLIA [id number] [place] [address] [place] AST [Catalytic activity/Vol] 30 U/L Normal 14-40 [facility] Comment on above: Order Comment: Speci men Type: BLOOD SPECIMENOrdering Facility: [facility] Address: [address] [place] [address] Performed By: #### 2 4323-8 ####[facility] MILLTOWNCLIA [id number] [place] [address] [place] Bilirubin [Mass/Vol] 0.3 mg/dL Normal 0.2-1.3 [facility] Comment on above: Order Comment: Speci men Type: BLOOD SPECIMENOrdering Facility: [facility] Address: [address] [place] [address] Performed By: #### 2 4323-8 ####[facility] MILLTOWNCLIA [id number] [place] [address] [place] Calcium [Mass/Vol] 9.8 mg/dL Normal 8.5-10.2 [facility] Comment on above: Order Comment: Speci men Type: BLOOD SPECIMENOrdering Facility: [facility] Address: [address] [place] [address] Performed By: #### 2 4323-8 ####[facility] ERWNCLIA [id number] [place] [address] [place] Chloride [Moles/Vol] 101 mmol/L Normal 98-107 [facility] Comment on above: Order Comment: Speci men Type: BLOOD SPECIMENOrdering Facility: [facility] Address: [address] [place] [address] Performed By: #### 2 4323-8 ####[facility] WALESNCLIA [id number] [place] [address] [place] CO2 [Moles/Vol] 28 mmol/L Normal 22-30 [facility] Comment on above: Order Comment: Speci men Type: BLOOD SPECIMENOrdering Facility: [facility] Address: [address] [place] [address] Performed By: #### 2 4323-8 ####[facility] [id number] [place] [address] [place] Creatinine [Mass/Vol] 0.86 mg/dL Normal 0.73-1.22 [facility] Comment on above: Order Comment: Speci men Type: BLOOD SPECIMENOrdering Facility: [facility] Address: [address] [place] [address] Performed By: #### 2 4323-8 ####[facility] WALESNCLIA [id number] [place] [address] [place] Creatinine and Glomerular filtration rate.predicted panel (S/P/Bld) 94 mL/min/1.73m??? Normal >=60 [facility] Comment on above: Order Comment: Speci men Type: BLOOD SPECIMENOrdering Facility: [facility] Address: [address] [place] [address] Result Comment: Shea mated Glomerular Filtration Rate (eGFR) is calculated using the 2020 CKD-EPI creatinine equation. This equation utilizes serum creatinine, sex, and age as parameters. The creatinine assay has traceable calibration to isotope dilution-mass spectrometry. Refer to KDIGO guidelines for clinical interpretation. In patients with unstable renal function, e.g. those with acute kidney injury, the eGFR may not accurately reflect actual GFR. Performed By: #### 2 4323-8 ####[facility] [id number] [place] [address] [place] Glucose [Mass/Vol] 113 mg/dL High 74-99 [facility] Comment on above: Order Comment: Geo fernandez Type: BLOOD SPECIMENOrdering Facility: [facility] Address: [address] [place] [address] Result Comment: The [place] Diabetes Association (ADA) provides guidance for cutoff values for fasting glucose and random glucose. The ADA defines fasting as no caloric intake for at least 8 hours. Fasting plasma glucose results between 100 to 125 mg/dL indicate increased risk for diabetes (prediabetes). Fasting plasma glucose results greater than or equal to 126 mg/dL meet the criteria for diagnosis of diabetes. In the absence of unequivocal hyperglycemia, results should be confirmed by repeat testing. In a patient with classic symptoms of hyperglycemia or hyperglycemic crisis, random plasma glucose results greater than or equal to 200 mg/dL meet the criteria for diagnosis of diabetes. Reference: Standards of Medical Care in Diabetes 2016, [place] [employer]. Diabetes Care. 2016.39(Suppl 1). Performed By: #### 2 4323-8 ####[facility] [id number] [place] [address] [place] Potassium [Moles/Vol] 4.2 mmol/L Normal 3.7-5.1 [facility] Comment on above: Order Comment: Geo fernandez Type: BLOOD SPECIMENOrdering Facility: [facility] Address: [address] [place] [id number] Performed By: #### 2 4323-8 ####[facility] HOSPITALLIA [id number] [place] [address] [place] Protein [Mass/Vol] 6.5 g/dL Normal 6.3-8.0 [facility] Comment on above: Order Comment: Speci men Type: BLOOD SPECIMENOrdering Facility: [facility] Address: [address] [place] [address] Performed By: #### 2 4323-8 ####[facility] WALESNCLIA [id number] [place] [address] [place] Sodium [Moles/Vol] 137 mmol/L Normal 136-144 [facility] Comment on above: Order Comment: Speci men Type: BLOOD SPECIMENOrdering Facility: [facility] Address: [address] [place] [address] Performed By: #### 2 4323-8 ####[facility] WALESNCLIA [id number] [place] [address] [place] Urea nitrogen [Mass/Vol] 14 mg/dL Normal 9-24 [facility] Comment on above: Order Comment: Speci men Type: BLOOD SPECIMENOrdering Facility: [facility] Address: [address] [place] [address] Performed By: #### 2 4323-8 ####[facility] HOSPITALLIA [id number] [place] [address] [place] Ferritin SerPl-mCncon 2024 Ferritin [Mass/Vol] 187.0 ng/mL Normal 30.3-565.7 [facility] Comment on above: Order Comment: Speci men Type: BLOOD SPECIMENOrdering Facility: [facility] Address: [address] [place] [address] Performed By: #### L IPNF, 2276-4, 82411-1 ####[facility] LABCLIA [id number] [place] [address] [place] Folate SerPl-mCncon 05-23-19 25 Folate [Mass/Vol] 15.5 ng/mL Normal >4.7 [facility] Comment on above: Order Comment: Geo fernandez Type: BLOOD SPECIMENOrdering Facility: [facility] Address: [address] [place] [address] Performed By: #### 2 132-9, 2284-8 ####[facility] LABCLIA [id number] [place] [address] [place] HbA1c (Bld)on 05-23-2024 Average glucose Estimated from glycated hemoglobin (Bld) [Mass/Vol] 97 mg/dL Normal [facility] Comment on above: Order Comment: Geo fernandez Type: BLOOD SPECIMENOrdering Facility: [facility] Address: [address] [place] [address] Result Comment: eAG: (Estimated average glucose) is a calculated value from HgbA1c and is account representative of the average blood glucose level in the last 2-3 month period. Performed By: #### 5 5454-3 ####[facility] LABCLIA [id number] [address] [place] OF [facility] HbA1c (Bld) [Mass fraction] 5.0 % Normal 4.3-5.6 [facility] Comment on above: Order Comment: Geo fernandez Type: BLOOD SPECIMENOrdering Facility: [facility] Address: [address] [place] [address] Result Comment: [place] [employer] guidelines indicate that patients with HgbA1c in the range 5.7-6.4% are at increased risk for development of diabetes, and intervention by lifestyle modification may be beneficial. HgbA1c greater or equal to 6.5% is considered diagnostic of diabetes. Performed By: #### 5 5454-3 ####[facility] [id number] [place] [address] [place] Iron and Iron binding capaci ty panelon 05-23-2024 Iron [Mass/Vol] 78 ug/dL Normal 41-186 [facility] Comment on above: Order Comment: Speci men Type: BLOOD SPECIMENOrdering Facility: [facility] Address: [address] [place] [address] Performed By: #### L TODD, 6-4, 67023-7 ####[facility] [id number] [address] [address] [place] Iron binding capacity [Mass/Vol] 360 ug/dL Normal 232-386 [facility] Comment on above: Order Comment: Speci men Type: BLOOD SPECIMENOrdering Facility: [facility] Address: [address] [place] [address] Performed By: #### L TODD, 2275-08, 38787-7 ####[facility] [id number] [place] [address] [place] Iron/TIBC [Molar ratio] 21.7 % Normal 15.0-57.0 [facility] Comment on above: Order Comment: Speci men Type: BLOOD SPECIMENOrdering Facility: [facility] Address: [address] [place] [address] Performed By: #### L TODD, 2275-08, 59529-5 ####[facility] [id number] [address] [address] [place] LIPID PANEL, NONFASTINGon Cholesterol [Mass/Vol] 165 mg/dL Normal <200 [facility] Comment on above: Order Comment: Speci men Type: BLOOD SPECIMENOrdering Facility: [facility] Address: [address] [place], [place] [address] Result Comment: <200 mg/dL, Desirable 200-239 mg/dL, Borderline high >239 mg/dL, High Performed By: #### L UTENF, 2275-08, 64416-4 ####[facility] [id number] [place] [id number] [place] HDL CHOLESTEROL, NF 36 mg/dL Low >39 [facility] Comment on above: Order Comment: Geo jim Type: BLOOD SPECIMENOrdering Facility: [facility] Address: [address] [place] [address] Result Comment: 40-5 9 mg/dL, Acceptable >59 mg/dL, High: Negative risk factor for coronary heart disease <40 mg/dL, Low: Positive risk factor for coronary heart disease Performed By: #### L IPNF, 6-4, 97558-2 ####[facility] [id number] [address] LDL CHOLESTEROL, NF 71 mg/dL Normal <100 [facility] Comment on above: Order Comment: Martellcristiano fernandez Type: BLOOD SPECIMENOrdering Facility: [facility] Address: [address] [place] [address] Result Comment: <100 mg/dL, Optimal 100-129 mg/dL, Near optimal/above optimal 130-159 mg/dL, Borderline high 160-189 mg/dL, High >189 mg/dL, Very high Secondary prevention optimal LDL Cholesterol levels are recommended to be < 70 mg/dL Performed By: #### L IPNF, 6-4, 94110-6 ####[facility] [id number] [address] LDL/HDL RATIO, NF 1.97 mg/dL Normal <2.54 [facility] Comment on above: Order Comment: Geo fernandez Type: BLOOD SPECIMENOrdering Facility: [facility] Address: [address] [place] [address] Result Comment: Refe rence: 1. National Cholesterol Education Program ATP III Guideline At-A-Glance Quick Desk Reference: National Heart, Lung, and Blood [place]. National Institutes of Health. 2001: NIH Publication No. 01-3305. 2. An International Atherosclerosis Society position paper: global recommendations for the management of dyslipidemia: executive summary, Atherosclerosis. 2014: 232(2):410-413. Performed By: #### L IPNF, 2276-4, 24466-0 ####[facility] [id number] [place] [address] [place] NON HDL CHOL, NF 129 mg/dL Normal <130 [facility] Comment on above: Order Comment: Speci men Type: BLOOD SPECIMENOrdering Facility: [facility] Address: [address] [place] [address] Result Comment: <130 mg/dL, Optimal 130-159 mg/dL, Near optimal/above optimal 160-189 mg/dL, Borderline high 190-219 mg/dL, High >219 mg/dL, Very high Secondary prevention optimal non HDL Cholesterol levels are recommended to be <100 mg/dL Performed By: #### L IPNF, 2276-4, 38556-2 ####[facility] [id number] [place] [address] [place] T CHOL/HDL RATIO NF 4.58 mg/dL Normal <5.10 [facility] Comment on above: Order Comment: Speci men Type: BLOOD SPECIMENOrdering Facility: [facility] Address: [address] [place] [address] Performed By: #### L IPNF, 2276-4, 70210-7 ####[facility] [id number] [place] [address] [place] TRIGLYCERIDES, NF 289 mg/dL High <150 [facility] Comment on above: Order Comment: Speci men Type: BLOOD SPECIMENOrdering Facility: [facility] Address: [address] [place] [address] Result Comment: <150 mg/dL, Normal 150-199 mg/dL, Borderline high 200-499 mg/dL, High >499 mg/dL, Very high Performed By: #### L IPNF, 2276-4, 86460-4 ####[facility] [id number] [place] [address] [place] VLDL CHOLESTEROL, NF 58 mg/dL High <30 [facility] Comment on above: Order Comment: Speci men Type: BLOOD SPECIMENOrdering Facility: [facility] Address: [address] [place] [address] Performed By: #### L IPNF, 2276-4, 83513-7 ####[facility] [id number] [place] [address] [place] PSA SerPl-mCncon 05-23-2024 Prostate specific Ag [Mass/Vol] 0.29 ng/mL Normal <2.60 [facility] Comment on above: Order Comment: Speci men Type: BLOOD SPECIMENOrdering Facility: [facility] Address: [address] [place] [address] Result Comment: Tota l PSA test methodology used is the Electrochemiluminescence Immunoassay by [employer]. Total PSA values by differing methodologies cannot be interchanged. Performed By: #### 2 857-1 ####[facility] [id number] [place] [address] [place] Urinalysis complete panel (U )on 05-23-2024 Bacteria LM.HPF (Urine sed) [#/Area] Negative Normal Negative [facility] Comment on above: Order Comment: Speci men Type: URINE SPECIMENOrdering Facility: [facility] Address: [address] [place] [address] Performed By: #### 2 4356-8 ####[facility] [id number] [place] [address] [place] Bilirubin Ql (U) Negative Normal Negative [facility] Comment on above: Order Comment: Speci men Type: URINE SPECIMENOrdering Facility: [facility] Address: [address] [place] [address] Performed By: #### 2 4356-8 ####[facility] [id number] [place] [address] [place] Clarity (Unsp spec) Clear Normal Clear [facility] Comment on above: Order Comment: Speci men Type: URINE SPECIMENOrdering Facility: [facility] Address: [address] [place] [address] Performed By: #### 2 4356-8 ####[facility] [id number] [place] [address] [place] Color (U) Yellow Normal Yellow [facility] Comment on above: Order Comment: Speci men Type: URINE SPECIMENOrdering Facility: [facility] Address: [address] [place] [address] Performed By: #### 2 4356-8 ####[facility] [id number] [place] [address] [place] Epithelial cells LM.HPF (Urine sed) [#/Area] None Seen Normal [facility] Comment on above: Order Comment: Speci men Type: URINE SPECIMENOrdering Facility: [facility] Address: [address] [place] [address] Performed By: #### 2 4356-8 ####[facility] [id number] [place] [address] [place] Glucose Test strip (U) [Mass/Vol] Negative Normal Negative [facility] Comment on above: Order Comment: Speci men Type: URINE SPECIMENOrdering Facility: [facility] Address: [address] [place] [address] Performed By: #### 2 4356-8 ####[facility] [id number] [place] [address] [place] Hemoglobin Ql (U) Negative Normal Negative [facility] Comment on above: Order Comment: Speci men Type: URINE SPECIMENOrdering Facility: [facility] Address: [address] [place] [address] Performed By: #### 2 4356-8 ####[facility] [id number] [place] [address] [place] Hyaline casts (Urine sed) [#/Area] 0 /[LPF] Normal 0 /LPF [facility] Comment on above: Order Comment: Speci men Type: URINE SPECIMENOrdering Facility: [facility] Address: [address] [place] [address] Performed By: #### 2 4356-8 ####[facility] [id number] [place] [address] [place] Ketones Ql (U) Negative Normal Negative [facility] Comment on above: Order Comment: Speci men Type: URINE SPECIMENOrdering Facility: [facility] Address: [address] [place] [address] Performed By: #### 2 4356-8 ####[facility] [id number] [place] [address] [place] Leukocyte esterase Test strip Ql (U) Negative Normal Negative [facility] Comment on above: Order Comment: Speci men Type: URINE SPECIMENOrdering Facility: [facility] Address: [address] [place] [address] Performed By: #### 2 4356-8 ####[facility] [id number] [place] [address] [place] Nitrite Ql (U) Negative Normal Negative [facility] Comment on above: Order Comment: Speci men Type: URINE SPECIMENOrdering Facility: [facility] Address: [address] [place] [address] Performed By: #### 2 4356-8 ####[facility] [id number] [place] [address] [place] pH (U) 6.5 [pH] Normal <8.5 [facility] Comment on above: Order Comment: Speci men Type: URINE SPECIMENOrdering Facility: [facility] Address: [address] [place] [address] Performed By: #### 2 4356-8 ####[facility] [id number] [id number] [address] [place] Protein (U) [Mass/Vol] Negative Normal Negative Cl [facility] Comment on above: Order Comment: Speci men Type: URINE SPECIMENOrdering Facility: [facility] Address: [address] [place] [address] Performed By: #### 2 4356-8 ####[facility] [id number] [place] [address] [place] RBC LM.HPF (Urine sed) [#/Area] 0-2 /HPF Normal 0-2 /HPF [facility] Comment on above: Order Comment: Speci men Type: URINE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 hyperlipidemia 06/16/2016 Neck pain 12/18/2017 With headache's: Seeing Dr. Hogan INDIA (obstructive sleep apnea) 08/19/2016 Mild per study 07/30/2106, Sees Dr. Collazo. HAs BiPaP Peptic ulcer, unspecified site, unspecified as acute or chronic, without mention of hemorrhage, perforation, or obstruction Post-traumatic headache 12/14/2015 After a fall on ice stepping out of his Semi. 06/2014 Primary insomnia 12/14/2015 Pulmonary emphysema (HCC) RSV (respiratory syncytial virus infection) 05/2023 Vitamin D deficiency 2013 Well adult exam 12/14/2015 last done: 07/22/18 Previous Surgical History PAST SURGICAL HISTORY Procedure Laterality Date 2D ECHO (EXEP) 07/03/2016 EF= 60%, mild LVH and Mild diastolic dysfunction APPENDECTOMY HX BACK SURGERY HX 10/03/2014 left microdecompression L4-L5 BACK SURGERY HX 09/11/2015 revision L4-L5 disectomy CHOLECYSTECTOMY 2003 COLONOSCOPY 11/05/2011 repeat 10 yrs COLONOSCOPY 07/06/2018 COLONOSCOPY FLX DX W/COLLJ SPEC WHEN PFRMD 09/01/2018 Colonoscopy COLONOSCOPY FLX DX W/COLLJ SPEC WHEN PFRMD 10/23/2020 EGD 11/05/2011 ESOPHAGOGASTRODUODENOSCOPY TRANSORAL DIAGNOSTIC 09/14, 01/15, 08/16, 06/21 ESOPHAGOGASTRODUODENOSCOPY TRANSORAL DIAGNOSTIC 09/01/2018 EGD ESOPHAGOGASTRODUODENOSCOPY TRANSORAL DIAGNOSTIC 10/23/2020 FECAL OCCULT BLOOD TEST 12/23/2016 negative GASTROJEJUNOSTOMY W/O VAGOTOMY 2006 for reflux HEART CATHETERIZATION <10% stenosis prox, mid, and distal LAD HEART CATHETERIZATION 09/09/2016 no disease No Stents LEFT HEART CATH,PERCUTANEOUS 0 (more content not included)... Normal [facility] Culture, Blood (WB)on 2023 CUB No growth in 5 days. Normal [facility] Comment on above: Performed By: #### L 500.2500, L100.0100, M200.1000, L501.4020 ####[facility] [id number] [facility] [place] [place], [address] Discharge Instructionon 09-08 Discharge Instruction [facility] Medical Records Department [address] [place] [address] Instructions for Home/Discharge Instructions 09/23/23 0936 MR#: [id number] Acct: [id number] Name: TARA ARELLANO Rep #: [id number] : 1955 67 From: Tao Urena DO PCP: Dr. Andry Jean-Baptiste MD Status:ADM IN Discharge Instructions Diet Discharge Diet: No restrictions Activity Discharge Activity: Return to Normal Activity Weight Bearing Status: Full weight bearing Follow Up Care Test Results: Test results from this visit will be discussed in further detail at your follow-up appointment, if applicable. Discharge Plan Admission Admit Date/Time: 09/20/23 15:07 Primary Reason for Your Visit: parainfluenza infection, copd exacerbation Attending Provider: Tao Urena Primary Care Provider: Andry Jean-Baptiste Consulting Providers: Dutch Garnett Discharge Orders/Prescriptions Prescriptions: New prednisone 20 mg tablet 40 mg PO DAILY Qty: 11 0RF Rx Instructions: 40 mg daily for 3 days, then 20 mg daily x 5 days, then discontinue Continued coenzyme Q10 [Co Q-10] 100 mg capsule 100 mg PO QHS omeprazole 40 mg capsule,delayed release(DR/EC) 40 mg PO BID budesonide-formoterol 80-4.5 mcg/actuation HFA aerosol inhaler 2 puff inhalation BID cyanocobalamin (vitamin B-12) [Vitamin B-12] 1,000 mcg tablet 2,000 mcg PO DAILY cholecalciferol (vitamin D3) 1,250 mcg (50,000 unit) tablet 1,250 mcg PO QWEEK epinephrine [EpiPen] 0.3 mg/0.3 mL auto-injector 0.3 mg IM ONCE PRN (Reason: Allergic Reaction) Rx Instructions: as a single dose; may repeat once omega-3 fatty acids 1,000 mg capsule 1,000 mg PO DAILY nitroglycerin 0.4 mg tablet, sublingual 0.4 mg sublingual Q5-15M PRN (Reason: Chest Pain) Rx Instructions: do not exceed 3 doses per episode iron, carbonyl 45 mg tablet 45 mg PO DAILY pravastatin 80 mg tablet 40 mg PO QHS Calcium 600 with Vitamin D3 1 EACH tablet,chewable 1 ea PO DAILY albuterol sulfate [Ventolin HFA] 90 mcg/actuation HFA aerosol inhaler 2 puff inhalation Q6H PRN (Reason: Wheezing) benzonatate 200 mg capsule 200 mg PO TID PRN PRN (Reason: cough) ipratropium-albuterol 0.5 mg-3 mg(2.5 mg base)/3 mL solution for nebulization 3 ml inhalation Q4H PRN (Reason: sob) Trelegy Ellipta 100-62.5-25 mcg blister with device 1 ea inhalation DAILY Referrals / Follow Up: Andry Jean-Baptiste MD [Primary Care Provider] - Disposition Disposition (needs filled in before D/C Order can be placed): Home, Self Care 09/23/23 0942 Tao Urena DO CC: Dr. Dutch Garnett DO; Dr. Andry Jean-Baptiste MD Signed [facility] Respiratory Cultureon 2023 RESPC Mixed normal respira tory christophe. No Haemophilus, Streptococcus pneumoniae, beta-hemolytic Streptococcus or Staphylococcus aureus isolated. [facility] Comment on above: Performed By: #### M 100.2000, M100.2400 #### [facility] [address] [place], [address] Basic Metabolic Profile (BMP )on 09-21-2023 BUN/CRE 13.5 RATIO Normal 10-20 [facility] Comment on above: Performed By: #### L 500.2500, L100.0500 #### [facility] [address] [place], [address] CA,Total 8.8 mg/dL Normal 8.5-10.1 [facility] Comment on above: Performed By: #### L 500.2500, L100.0500 #### [facility] [address] [place], [address] Chloride [Moles/Vol] 101 mmol/L Normal 98-107 [facility] Comment on above: Performed By: #### L 500.2500, L100.0500 #### [facility] [address] [place], [address] CO2 [Moles/Vol] 26.0 mmol/L Normal 21.0-32.0 [facility] Comment on above: Performed By: #### L 500.2500, L100.0500 #### [facility] [address] [place], [address] Creatinine [Mass/Vol] 1.04 mg/dL Normal 0.70-1.30 [facility] Comment on above: Result Comment: The validity of the calculated GFR GFRAA in patients over 70 years has not been determined. Clinical correlation is essential. Performed By: #### L 500.2500, L100.0500 #### [facility] [address] [place], [address] ECRCL 70.19 ml/min Normal [facility] Comment on above: Performed By: #### L 500.2500, L100.0500 #### [facility] [address] [place], [address] EST GFR - AA 91 mL/min Normal >60 [facility] Comment on above: Result Comment: Afri can [place] GFR Calc Performed By: #### L 500.2500, L100.0500 #### [facility] [address] [place], [address] GAP 7 Normal 5-15 [facility] Comment on above: Performed By: #### L 500.2500, L100.0500 #### [facility] [address] [place], [address] GFR/1.73 sq M.predicted among non-blacks MDRD (S/P/Bld) [Vol rate/Area] 75 mL/min/{1.73_m2} Normal >60 [facility] Comment on above: Result Comment: Non- GFR Calc Performed By: #### L 500.2500, L100.0500 #### [facility] [address] [place], [address] Glucose [Mass/Vol] 274 mg/dL High 74-106 [facility] Comment on above: Result Comment: Gluc ose result greater than or equal to 200 mg/dL suggests DIABETES MELLITUS per A.D.A. criteria. Performed By: #### L 500.2500, L100.0500 #### [facility] [address] [place], [address] Potassium [Moles/Vol] 3.2 mmol/L Low 3.5-5.1 [facility] Comment on above: Performed By: #### L 500.2500, L100.0500 #### [facility] [address] [place], [address] Sodium [Moles/Vol] 134 mmol/L Low 136-145 [facility] Comment on above: Performed By: #### L 500.2500, L100.0500 #### [facility] [address] [place], [address] Urea nitrogen [Mass/Vol] 14 mg/dL Normal 7-18 [facility] Comment on above: Performed By: #### L 500.2500, L100.0500 #### [facility] [address] [place], [address] CBC-Complete Blood Cnt No Di ffon 09-21-2023 Erythrocyte distribution width (RBC) [Ratio] 12.7 % Normal 11.6-14.6 [facility] Comment on above: Performed By: #### L 500.2500, L100.0500 #### [facility] [address] [place], [address] Hematocrit (Bld) [Volume fraction] 32.5 % Low 40-54 [facility] Comment on above: Performed By: #### L 500.2500, L100.0500 #### [facility] [address] [place], [address] Hemoglobin (Bld) [Mass/Vol] 11.1 g/dL Low 13.0-16.5 [facility] Comment on above: Performed By: #### L 500.2500, L100.0500 #### [facility] [address] [place], [address] MCH (RBC) [Entitic mass] 30.3 pg Normal 27.0-32.0 [facility] Comment on above: Performed By: #### L 500.2500, L100.0500 #### [facility] [address] [place], [address] MCHC (RBC) [Mass/Vol] 34.2 g/dL Normal 32-36 [facility] Comment on above: Performed By: #### L 500.2500, L100.0500 #### [facility] [address] [place], [address] MCV (RBC) [Entitic vol] 88.8 fL Normal 80-94 [facility] Comment on above: Performed By: #### L 500.2500, L100.0500 #### [facility] [address] [place], [address] Platelet mean volume (Bld) [Entitic vol] 9.3 fL Normal 6.2-12.0 [facility] Comment on above: Performed By: #### L 500.2500, L100.0500 #### [facility] [address] [place], [address] Platelets (Bld) [#/Vol] 256 10*3/uL Normal 150-450 [facility] Comment on above: Performed By: #### L 500.2500, L100.0500 #### [facility] [address] [place], [address] RBC (Bld) [#/Vol] 3.66 10*6/uL Low 4.6-6.2 [facility] Comment on above: Performed By: #### L 500.2500, L100.0500 #### [facility] [address] [place], [address] RDW SD 41.4 fl Normal 35.1-43.9 [facility] Comment on above: Performed By: #### L 500.2500, L100.0500 #### [facility] [address] [place], [address] WBC (Bld) [#/Vol] 5.6 10*3/uL Normal 4.4-11.0 [facility] Comment on above: Performed By: #### L 500.2500, L100.0500 #### [facility] [address] [place], [address] Kayla 09-21-2023 JEANN Telephone (FAMPWS) TARA ARELLANO ([id number]) 1955 M Date Time Provider Department 09/21/23 LEW BIRD During your visit today, we recorded the following information about you: Lew Bird APRN.COMPOSITION FLOOR SETTER 09/21/2023 7:59 AM Signed Please let patient know covid/flu/rsv is negative. Radha Ramires MA 09/21/2023 9:59 AM Signed Spoke to patient's , she was notified of results and verbalized understanding. states that patient is currently admitted to [facility] for RSV Radha Ramires MA Allergies As of Date: 09/21/2023 Noted Allergy Reaction BEES 07/06/2018 4 - Hives CODEINE 02/10/2005 16 - Unknown DARVOCET A500 (PROPOXYPHENE N-GUY*02/10/2005 16 - Unknown DARVON (PROPOXYPHENE HCL) 02/10/2005 16 - Unknown DEMEROL (MEPERIDINE HCL) 02/10/2005 16 - Unknown LIPITOR (ATORVASTATIN CALCIUM) 06/19/2016 14 - Other: See Comments Comments: Made legs feel weak. MORPHINE 07/06/2014 14 - Other: See Comments Comments: hypotension PNEUMOCOCCAL 23-SINAN PS VACCINE 03/25/2013 7 - Swelling Comments: Localized swelling Date Reviewed: 09/18/2023 Reviewed by: Radha Ramires MA - Fully Assessed Reason for Visit: Results [95] Prescriptions as of 09/21/2023 - murhkbijwxf-pceuynpba-bfdri ter (TRELEGY ELLIPTA) 100-62.5-25 mcg inhalation powder Inhale 1 Puff as instructed once daily. - triamcinolone acetonide topical 0.5 % ointment Apply to affected area two times a day. May use up to 2 weeks. - ipratropium-albuterol (DUONEB) 0.5 mg-3 mg(2.5 mg base)/3 mL nebu Inhale 3 mL as instructed every 4 hours as needed for wheezing/shortness of breath. - albuterol HFA (PROVENTIL HFA, VENTOLIN HFA) 90 mcg/actuation inhaler INHALE 2 PUFFS INSTRUCTED EVERY 6 HOURS NEEDED FOR WHEEZING/SHORTNESS OF BREATH. - pravastatin (PRAVACHOL) 40 mg tablet Take 1 tablet by mouth once daily. - omeprazole (PRILOSEC) 40 mg capsule Take 1 capsule by mouth two times a day. - nitroglycerin sublingual (NITROSTAT) 0.4 mg SL tablet Dissolve 1 tablet under the tongue every 5 minutes as needed for chest pain. Max of three in a row - jeupcirzay-ocezwdiv-xdtcxlh rol (BREZTRI AEROSPHERE) 160-9-4.8 mcg/actuation HFA aerosol inhaler Inhale 2 Puffs as instructed two times a day. - budesonide-formoterol (SYMBICORT) 80-4.5 mcg/actuation inhaler Inhale 2 Puffs as instructed two times a day. - cholecalciferol, Vitamin D3, (VITAMIN D3) 1,250 mcg (50,000 unit) cap capsule Take 1 capsule by mouth one time a week. - cyanocobalamin, vitamin B-12, (VITAMIN B-12 ORAL) Take 2 tablets by mouth once daily. - EPINEPHrine (EPIPEN) 0.3 mg/0.3 mL auto-injector If symptoms of allergic reaction follow instruction on package insert. - omega-3 fatty acids 1,000 mg cap Take 1 capsule by mouth once daily. - Iron 40 mg cap Take 1 tablet by mouth once daily. - CALCIUM CARBONATE/VITAMIN D3 (CALCIUM + D ORAL) Take 1 tablet by mouth once daily. Problem List As Of Date 09/21/2023 Noted Resolved Hemorrhage of rectum and anus [K62.5] 01/13/2013 Diaphragmatic hernia with obstruction [K44.0] 01/13/2013 H/O hiatal hernia [Z87.19] Vitamin D deficiency [E55.9] CAD (coronary artery disease) [I25.10] Pulmonary emphysema (HCC) [J43.9] Lumbar disc disease [M51.9] 12/14/2015 Post-traumatic headache [G44.309] 12/14/2015 Chronic low back pain [M54.50, G89.29] 12/14/2015 Primary insomnia [F51.01] 12/14/2015 Mixed hyperlipidemia [E78.2] 06/16/2016 GERD without esophagitis [K21.9] 06/30/2016 Bilateral carotid artery disease (HCC) [I77.9] 08/16/2016 INDIA (obstructive sleep apnea) [G47.33] 08/19/2016 Screening for colon cancer [Z12.11] 12/10/2016 Neck pain [M54.2] 12/18/2017 Diverticulosis of colon [K57.30] 06/24/2018 Intractable chronic migraine without aura and w*07/07/2018 Malabsorption syndrome [K90.9] 10/13/2018 History of gastric bypass [Z98.84] 10/13/2018 Iron deficiency anemia secondary to inadequate *01/17/2019 Elevated fasting blood sugar [R73.01] 01/25/2019 Chronic abdominal pain [R10.9, G89.29] 04/18/2019 Ex-smoker [Z87.891] 08/29/2020 Family history of colon cancer [Z80.0] 08/29/2020 Hemorrhoids [K64.9] 08/29/2020 Prostate disorder [N42.9] 08/29/2020 Medication management [Z79.899] 08/29/2020 Encounter for Medicare annual wellness exam [Z0*03/04/2021 Advance directive discussed with patient [Z71.8*09/03/[address] [Z78.9] 03/07/2022 Encounter Status:Closed by LEW BIRD [facility] 09/21/23 [facility] ([id number]) 1955 M Date Time Provider Department 09/21/23 [facility] During your visit today, we recorded the following information about you: Lew Bird APRN.COMPOSITION FLOOR SETTER 09/21/2023 3:02 PM Signed Please let patient know their xray is normal. Ileana Jiang OCCA 09/21/2023 3:08 PM Signed TC to patient who verbalized understanding of below. ANUJ Pollack Allergies As of Date: 09/21/2023 Noted Allergy Reaction BEES 07/06/2018 4 - Hives CODEINE 02/10/2005 16 - Unknown DARVOCET A500 (PROPOXYPHENE N-GUY*02/10/2005 16 - Unknown DARVON (PROPOXYPHENE HCL) 02/10/2005 16 - Unknown DEMEROL (MEPERIDINE HCL) 02/10/2005 16 - Unknown LIPITOR (ATORVASTATIN CALCIUM) 06/19/2016 14 - Other: See Comments Comments: Made legs feel weak. MORPHINE 07/06/2014 14 - Other: See Comments Comments: hypotension PNEUMOCOCCAL 23-SINAN PS VACCINE 03/25/2013 7 - Swelling Comments: Localized swelling Date Reviewed: 09/18/2023 Reviewed by: Radha Ramires MA - Fully Assessed Reason for Visit: Results [95] Prescriptions as of 09/21/2023 - eclpfqrckda-gppmsdvuk-lfaun ter (TRELEGY ELLIPTA) 100-62.5-25 mcg inhalation powder Inhale 1 Puff as instructed once daily. - triamcinolone acetonide topical 0.5 % ointment Apply to affected area two times a day. May use up to 2 weeks. - ipratropium-albuterol (DUONEB) 0.5 mg-3 mg(2.5 mg base)/3 mL nebu Inhale 3 mL as instructed every 4 hours as needed for wheezing/shortness of breath. - albuterol HFA (PROVENTIL HFA, VENTOLIN HFA) 90 mcg/actuation inhaler INHALE 2 PUFFS INSTRUCTED EVERY 6 HOURS NEEDED FOR WHEEZING/SHORTNESS OF BREATH. - pravastatin (PRAVACHOL) 40 mg tablet Take 1 tablet by mouth once daily. - omeprazole (PRILOSEC) 40 mg capsule Take 1 capsule by mouth two times a day. - nitroglycerin sublingual (NITROSTAT) 0.4 mg SL tablet Dissolve 1 tablet under the tongue every 5 minutes as needed for chest pain. Max of three in a row - uwjnoqmbvh-qlgtvvfj-mnzbnab rol (BREZTRI AEROSPHERE) 160-9-4.8 mcg/actuation HFA aerosol inhaler Inhale 2 Puffs as instructed two times a day. - budesonide-formoterol (SYMBICORT) 80-4.5 mcg/actuation inhaler Inhale 2 Puffs as instructed two times a day. - cholecalciferol, Vitamin D3, (VITAMIN D3) 1,250 mcg (50,000 unit) cap capsule Take 1 capsule by mouth one time a week. - cyanocobalamin, vitamin B-12, (VITAMIN B-12 ORAL) Take 2 tablets by mouth once daily. - EPINEPHrine (EPIPEN) 0.3 mg/0.3 mL auto-injector If symptoms of allergic reaction follow instruction on package insert. - omega-3 fatty acids 1,000 mg cap Take 1 capsule by mouth once daily. - Iron 40 mg cap Take 1 tablet by mouth once daily. - CALCIUM CARBONATE/VITAMIN D3 (CALCIUM + D ORAL) Take 1 tablet by mouth once daily. Problem List As Of Date 09/21/2023 Noted Resolved Hemorrhage of rectum and anus [K62.5] 01/13/2013 Diaphragmatic hernia with obstruction [K44.0] 01/13/2013 H/O hiatal hernia [Z87.19] Vitamin D deficiency [E55.9] CAD (coronary artery disease) [I25.10] Pulmonary emphysema (HCC) [J43.9] Lumbar disc disease [M51.9] 12/14/2015 Post-traumatic headache [G44.309] 12/14/2015 Chronic low back pain [M54.50, G89.29] 12/14/2015 Primary insomnia [F51.01] 12/14/2015 Mixed hyperlipidemia [E78.2] 06/16/2016 GERD without esophagitis [K21.9] 06/30/2016 Bilateral carotid artery disease (HCC) [I77.9] 08/16/2016 INDIA (obstructive sleep apnea) [G47.33] 08/19/2016 Screening for colon cancer [Z12.11] 12/10/2016 Neck pain [M54.2] 12/18/2017 Diverticulosis of colon [K57.30] 06/24/2018 Intractable chronic migraine without aura and w*07/07/2018 Malabsorption syndrome [K90.9] 10/13/2018 History of gastric bypass [Z98.84] 10/13/2018 Iron deficiency anemia secondary to inadequate *01/17/2019 Elevated fasting blood sugar [R73.01] 01/25/2019 Chronic abdominal pain [R10.9, G89.29] 04/18/2019 Ex-smoker [Z87.891] 08/29/2020 Family history of colon cancer [Z80.0] 08/29/2020 Hemorrhoids [K64.9] 08/29/2020 Prostate disorder [N42.9] 08/29/2020 Medication management [Z79.899] 08/29/2020 Encounter for Medicare annual wellness exam [Z0*03/04/2021 Advance directive discussed with patient [Z71.8*09/03/[address] [Z78.9] 03/07/2022 Encounter Status:Closed by ILEANA JIANG on 09/21/23 Normal [facility] Gram Stainon 09-21-2023 GS Acceptable Specimen? Yes (<25 Epithelial cells per/lpf) Gram Stain 3+ White Blood Cells 4+ Gram negative rods 2+ Gram positive cocci 2+ Gram positive rods 1+ Epithelial cells Normal [facility] Comment on above: Performed By: #### M 100.2000, M100.2400 #### [facility] [address] [place], [address] Vitamin B12on 09-21-2023 Cobalamin (Vitamin B12) [Mass/Vol] 1747 pg/mL High 211-911 [facility] Comment on above: Performed By: #### L 506.0250, L503.0105 ####[facility] [address] [place], [address] XR Chest PA and Lateralon IMPRESSION: No developing abnormality or acute process Postal Inspector: THONG Transcribe Date/Time: Sep 21 2023 1:52P Dictated by : LOCO PRUITT MD This examination was interpreted and the report reviewed and electronically signed by: LOCO PRUITT MD on Sep 21 2023 1:54PM [facility] DIVISION OF RADIOLOGY * * *Final Report* * * DATE OF EXAM: Sep 18 2023 4:04PM WOX 5291 - XR CHEST 2V FRONTAL/LAT / PROCEDURE REASON: URI, acute * * * * Physician Interpretation * * * * EXAMINATION: CHEST RADIOGRAPH (2 VIEW FRONTAL & LATERAL) CLINICAL HISTORY: URI, acute MQ: XC2_6 EXAM DATE/TIME: 09/18/2023 4:04 PM COMPARISON: Chest radiograph(s) dated 04/28/2023. CT chest of 06/16/2023 RESULT: Lines, tubes, and devices: None. Lungs and pleura: No consolidation. No lung mass. No pleural effusion. No pneumothorax. Cardiomediastinal silhouette: Stable cardiomediastinal silhouette. Calcified nodes are consistent with remote granulomatous disease Bones and soft tissues: Unremarkable. DIVISION OF RADIOLOGY Provider, [facility] - 09/21/2023 * * *Final Report* * * DATE OF EXAM: Sep 18 2023 4:04PM WOX 5291 - XR CHEST 2V FRONTAL/LAT / PROCEDURE REASON: URI, acute * * * * Physician Interpretation * * * * EXAMINATION: CHEST RADIOGRAPH (2 VIEW FRONTAL & LATERAL) CLINICAL HISTORY: URI, acute MQ: XC2_6 EXAM DATE/TIME: 09/18/2023 4:04 PM COMPARISON: Chest radiograph(s) dated 04/28/2023. CT chest of 06/16/2023 RESULT: Lines, tubes, and devices: None. Lungs and pleura: No consolidation. No lung mass. No pleural effusion. No pneumothorax. Cardiomediastinal silhouette: Stable cardiomediastinal silhouette. Calcified nodes are consistent with remote granulomatous disease Bones and soft tissues: Unremarkable. IMPRESSION IMPRESSION: No developing abnormality or acute process Postal Inspector: THONG Transcribe Date/Time: Sep 21 2023 1:52P Dictated by : LOCO PRUITT MD This examination was interpreted and the report reviewed and electronically signed by: LOCO PRUITT MD on Sep 21 2023 1:54PM EST [facility] [place] XR Chest PA and LateralOrder ed By: Ccf Provider on 09-21-2023 [facility] Absolute lymphocyte countOrd ered By: Saray Hutchinson on 09-20-2023 Lymphocytes Auto (Unsp spec) [#/Vol] 0.59 10*3/uL 0.83-4.51 [facility] Automated lymphocyte count a s percentage of total leukocytesOrdered By: Saray Hutchinson on 09-20-2023 Lymphocytes/100 WBC Auto (Unsp spec) 10.1 % 19-41 [facility] Basic Metabolic Profile (BMP )on 09-20-2023 BUN/CRE 13.0 RATIO Normal 10-20 [facility] Comment on above: Order Comment: 'TROP ' Serial specimen #1, #2 or #3: 1 Performed By: #### L 500.2500, L100.0100, M200.1000, L501.4020 ####[facility] [address] [place], [address] CA,Total 9.0 mg/dL Normal 8.5-10.1 [facility] Comment on above: Order Comment: 'TROP ' Serial specimen #1, #2 or #3: 1 Performed By: #### L 500.2500, L100.0100, M200.1000, L501.4020 ####[facility] [address] [place], [address] Chloride [Moles/Vol] 96 mmol/L Low 98-107 [facility] Comment on above: Order Comment: 'TROP ' Serial specimen #1, #2 or #3: 1 Performed By: #### L 500.2500, L100.0100, M200.1000, L501.4020 ####[facility] [address] [place], [address] CO2 [Moles/Vol] 28.0 mmol/L Normal 21.0-32.0 [facility] Comment on above: Order Comment: 'TROP ' Serial specimen #1, #2 or #3: 1 Performed By: #### L 500.2500, L100.0100, M200.1000, L501.4020 ####[facility] [address] [place], [address] Creatinine [Mass/Vol] 1.08 mg/dL Normal 0.70-1.30 [facility] Comment on above: Order Comment: 'TROP ' Serial specimen #1, #2 or #3: 1 Result Comment: The validity of the calculated GFR GFRAA in patients over 70 years has not been determined. Clinical correlation is essential. Performed By: #### L 500.2500, L100.0100, M200.1000, L501.4020 ####[facility] [address] [place], [address] ECRCL 69.72 ml/min Normal [facility] Comment on above: Order Comment: 'TROP ' Serial specimen #1, #2 or #3: 1 Performed By: #### L 500.2500, L100.0100, M200.1000, L501.4020 ####[facility] [address] [place], [address] EST GFR - AA 87 mL/min Normal >60 [facility] Comment on above: Order Comment: 'TROP ' Serial specimen #1, #2 or #3: 1 Result Comment: Afri can [place] GFR Calc Performed By: #### L 500.2500, L100.0100, M200.1000, L501.4020 ####[facility] [address] [place], [address] GAP 10 Normal 5-15 [facility] Comment on above: Order Comment: 'TROP ' Serial specimen #1, #2 or #3: 1 Performed By: #### L 500.2500, L100.0100, M200.1000, L501.4020 ####[facility] [address] [place], [address] GFR/1.73 sq M.predicted among non-blacks MDRD (S/P/Bld) [Vol rate/Area] 72 mL/min/{1.73_m2} Normal >60 [facility] Comment on above: Order Comment: 'TROP ' Serial specimen #1, #2 or #3: 1 Result Comment: Non- GFR Calc Performed By: #### L 500.2500, L100.0100, M200.1000, L501.4020 ####[facility] [address] [place], [address] Glucose [Mass/Vol] 125 mg/dL High 74-106 [facility] Comment on above: Order Comment: 'TROP ' Serial specimen #1, #2 or #3: 1 Result Comment: Fast ing Glucose result from 100 to 125 mg/dL suggests IMPAIRED HOMEOSTASIS per A.D.A. criteria. Performed By: #### L 500.2500, L100.0100, M200.1000, L501.4020 ####[facility] [address] [place], [address] Potassium [Moles/Vol] 3.5 mmol/L Normal 3.5-5.1 [facility] Comment on above: Order Comment: 'TROP ' Serial specimen #1, #2 or #3: 1 Performed By: #### L 500.2500, L100.0100, M200.1000, L501.4020 ####[facility] [address] [place], [address] Sodium [Moles/Vol] 134 mmol/L Low 136-145 [facility] Comment on above: Order Comment: 'TROP ' Serial specimen #1, #2 or #3: 1 Performed By: #### L 500.2500, L100.0100, M200.1000, L501.4020 ####[facility] [address] [place], [address] Urea nitrogen [Mass/Vol] 14 mg/dL Normal 7-18 [facility] Comment on above: Order Comment: 'TROP ' Serial specimen #1, #2 or #3: 1 Performed By: #### L 500.2500, L100.0100, M200.1000, L501.4020 ####[facility] [address] [place], [address] Basophil percentageOrdered B y: Remus Ungur on 09-20-2023 Basophils/100 WBC (Bld) 0.3 % 0-1 [facility] Chloride [Moles/Vol] 96 mmol/L 98-107 [facility] Eosinophils/100 WBC (Bld) 0.0 % 0-5 [facility] Glucose [Mass/Vol] 125 mg/dL 74-106 [facility] Comment on above: Fasting Glucose resu lt from 100 to 125 mg/dL suggests IMPAIRED HOMEOSTASIS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 Mother chf Hypertension Mother Colon Cancer Mother Cancer Father pancreatitis Colon Cancer Sister other (mva) Brother diet motor cycle accident COPD Brother Diabetes Brother Prostate Cancer Brother 68 Patient Allergies ALLERGIES Allergen Reactions Bees Hives Codeine Unknown Darvocet A500 [Prop* Unknown Darvon [Propoxyphen* Unknown Demerol [Meperidine* Unknown Lipitor [Atorvastat* Other: See Comments Made legs feel weak. Morphine Other: See Comments hypotension Pneumococcal 23-Sinan* Swelling Localized swelling Current Medications Current Outpatient Medications on File Prior to Visit Medication Sig nkenpaxussi-tpexjpsoh-qifbs ter (TRELEGY ELLIPTA) 100-62.5-25 mcg inhalation powder Inhale 1 Puff as instructed once daily. triamcinolone acetonide topical 0.5 % ointment Apply to affected area two times a day. May use up to 2 w (more content not included)... Normal [facility] COVID AND INFLUENZA A/B AND RSV NAAT, ROUTINEon 09-18-2023 SARS-CoV-2 (COVID-19) RNA VALARIE+probe Ql (Unsp spec) COVID 19 RESULT: Not detected The method used is RT-PCR or an equivalent NAAT method. Reference Range (the expected result in uninfected individuals): Not detected INFLUENZA A PCR: Not detected INFLUENZA B PCR: Not detected RSV PCR: Not detected Normal [facility] Comment on above: Performed By: #### C VFLRS ####[facility]CLIA [id number] [place] [address] [place] ECG COMPLETEon 09-18-2023 ECG COMPLETE Ventricular Rate : 1 04 BPM Atrial Rate : 104 BPM P-R Interval : 134 ms QRS Duration : 86 ms Q-T Interval : 314 ms QTC Calculation(Bazett) : 412 ms Calculated R [place] : 109 degrees Calculated T [place] : 135 degrees SINUS TACHYCARDIA RIGHT AXIS LOW VOLTAGE QRS, CONSIDER PULMONARY DISEASE, PERICARDIAL EFFUSION, OR NORMAL VARIANT BORDERLINE ECG Confirmed by MD FAJARDO GREGORY () on 09/21/2023 9:27:16 AM NAME : TARA ARELLANO PID : [id number] : 1955 Gender : Male Race : ORD : [id number] Procedure Date : Sep 18 2023 15:42:51 Edit Date : Sep 21 2023 09:27:22 Diagnosis: SINUS TACHYCARDIA RIGHT AXIS LOW VOLTAGE QRS, CONSIDER PULMONARY DISEASE, PERICARDIAL EFFUSION, OR NORMAL VARIANT BORDERLINE ECG Confirmed by MD FAJARDO GREGORY () on 09/21/2023 9:27:16 AM Test Reason : J06.9 URI, acute Location : 185 : [facility] Overread By : MD FAJARDO GREGORY Edited By : MD FAJARDO GREGORY Referred By : EMILE BIRD Acquired by : Roney RG [facility] XR CHEST 2V FRONTAL/LATon XR CHEST 2V FRONTAL/LAT * * *Final Repor t* * * DATE OF EXAM: Sep 18 2023 4:04PM WOX [id number] - XR CHEST 2V FRONTAL/LAT / PROCEDURE REASON: URI, acute * * * * Physician Interpretation * * * * EXAMINATION: CHEST RADIOGRAPH (2 VIEW FRONTAL and LATERAL) CLINICAL HISTORY: URI, acute MQ: [id number] EXAM DATE/TIME: 09/18/2023 4:04 PM COMPARISON: Chest radiograph(s) dated 04/28/2023. CT chest of 06/16/2023 RESULT: Lines, tubes, and devices: None. Lungs and pleura: No consolidation. No lung mass. No pleural effusion. No pneumothorax. Cardiomediastinal silhouette: Stable cardiomediastinal silhouette. Calcified nodes are consistent with remote granulomatous disease Bones and soft tissues: Unremarkable. IMPRESSION: No developing abnormality or acute process Postal Inspector: THONG Transcribe Date/Time: Sep 21 2023 1:52P Dictated by : LOCO PRUITT MD This examination was interpreted and the report reviewed and electronically signed by: LOCO PRUITT MD on Sep 21 2023 1:54PM EST [id number] Normal [facility] XR Chest PA and Lateralon Radiology Study observation (narrative) [facility] 06-17-2023 CNPN Telephone (MEPRAD) TARA ARELLANO ([id number]) 1955 Date Time Provider Department 06/17/23 TERI GROSS During your visit today, we recorded the following information about you: Teri Gross MD 06/17/2023 5:23 PM Signed Left voice mail message with results. The paratracheal node is likely due to granulomatous disease. I do not personally remember a nodule in the RUL on CT from [facility]. I will need to directly compare the films but will not have access until I return to [place] on Thursday. Left message that I will call on Thursday. Arleen Tapia LPN 06/22/2023 3:34 PM Signed Patient called in stating patient is out playing with [employer] and is not by phone patient would like to review results . Please call her cell at [phone] Arleen Tapia LPN Allergies As of Date: 06/17/2023 Noted Allergy Reaction BEES 07/06/2018 4 - Hives CODEINE 02/10/2005 16 - Unknown DARVOCET A500 (PROPOXYPHENE N-GUY*02/10/2005 16 - Unknown DARVON (PROPOXYPHENE HCL) 02/10/2005 16 - Unknown DEMEROL (MEPERIDINE HCL) 02/10/2005 16 - Unknown LIPITOR (ATORVASTATIN CALCIUM) 06/19/2016 14 - Other: See Comments Comments: Made legs feel weak. MORPHINE 07/06/2014 14 - Other: See Comments Comments: hypotension PNEUMOCOCCAL 23-SINAN PS VACCINE 03/25/2013 7 - Swelling Comments: Localized swelling Date Reviewed: 06/08/2023 Reviewed by: Andry Jean-Baptiste MD - Fully Assessed Reason for Visit: Results [95] Cmt: Chest CT Prescriptions as of 06/22/2023 - pravastatin (PRAVACHOL) 40 mg tablet Take 1 tablet by mouth once daily. - omeprazole (PRILOSEC) 40 mg capsule Take 1 capsule by mouth two times a day. - nitroglycerin sublingual (NITROSTAT) 0.4 mg SL tablet Dissolve 1 tablet under the tongue every 5 minutes as needed for chest pain. Max of three in a row - vkdqhvpqjl-ttnrzgog-gtesmlc rol (BREZTRI AEROSPHERE) 160-9-4.8 mcg/actuation HFA aerosol inhaler Inhale 2 Puffs as instructed two times a day. - albuterol HFA (VENTOLIN HFA) 90 mcg/actuation inhaler Inhale 2 Puffs as instructed every 6 hours as needed for wheezing/shortness of breath. - budesonide-formoterol (SYMBICORT) 80-4.5 mcg/actuation inhaler Inhale 2 Puffs as instructed two times a day. - cholecalciferol, Vitamin D3, (VITAMIN D3) 1,250 mcg (50,000 unit) cap capsule Take 1 capsule by mouth one time a week. - triamcinolone acetonide topical 0.5 % ointment Apply to affected area twice daily. May use up to 2 weeks. - cyanocobalamin, vitamin B-12, (VITAMIN B-12 ORAL) Take 2 tablets by mouth once daily. - EPINEPHrine (EPIPEN) 0.3 mg/0.3 mL auto-injector If symptoms of allergic reaction follow instruction on package insert. - omega-3 fatty acids 1,000 mg cap Take 1 capsule by mouth once daily. - Iron 40 mg cap Take 1 tablet by mouth once daily. - CALCIUM CARBONATE/VITAMIN D3 (CALCIUM + D ORAL) Take 1 tablet by mouth once daily. Problem List As Of Date 06/17/2023 Noted Resolved Hemorrhage of rectum and anus [K62.5] 01/13/2013 Diaphragmatic hernia with obstruction [K44.0] 01/13/2013 H/O hiatal hernia [Z87.19] Vitamin D deficiency [E55.9] CAD (coronary artery disease) [I25.10] Pulmonary emphysema (HCC) [J43.9] Lumbar disc disease [M51.9] 12/14/2015 Post-traumatic headache [G44.309] 12/14/2015 Chronic low back pain [M54.50, G89.29] 12/14/2015 Primary insomnia [F51.01] 12/14/2015 Mixed hyperlipidemia [E78.2] 06/16/2016 GERD without esophagitis [K21.9] 06/30/2016 Bilateral carotid artery disease (HCC) [I77.9] 08/16/2016 INDIA (obstructive sleep apnea) [G47.33] 08/19/2016 Screening for colon cancer [Z12.11] 12/10/2016 Neck pain [M54.2] 12/18/2017 Diverticulosis of colon [K57.30] 06/24/2018 Intractable chronic migraine without aura and w*07/07/2018 Malabsorption syndrome [K90.9] 10/13/2018 History of gastric bypass [Z98.84] 10/13/2018 Iron deficiency anemia secondary to inadequate *01/17/2019 Elevated fasting blood sugar [R73.01] 01/25/2019 Chronic abdominal pain [R10.9, G89.29] 04/18/2019 Ex-smoker [Z87.891] 08/29/2020 Family history of colon cancer [Z80.0] 08/29/2020 Hemorrhoids [K64.9] 08/29/2020 Prostate disorder [N42.9] 08/29/2020 Medication management [Z79.899] 08/29/2020 Encounter for Medicare annual wellness exam [Z0*03/04/2021 Advance directive discussed with patient [Z71.8*09/03/[address] [Z78.9] 03/07/2022 Encounter Status:Closed by TERI GROSS on 06/17/[address] [facility] CT CHEST WO IVCONon 02-06-20 24 Radiology Result ACTIONABLE Abnormal [facility] Serum or plasma uric acid me asurement (mass/volume)Ordered By: Dany Tovar on 06-10-2023 Urate [Mass/Vol] 6.4 mg/dL 3.5-7.2 [facility] Comment on above: The drugs N-Acetylcy steine and Metamizole may falsely depress this assay. Absolute lymphocyte countOrd ered By: Lionel Neville on 05-18-2023 Lymphocytes Auto (Unsp spec) [#/Vol] 0.87 10*3/uL 0.83-4.51 [facility] Basophil percentageOrdered B y: Lionel Neville on 05-18-2023 Basophil percentage 0 SEEN /hpf 0-5 [facility] Basophils/100 WBC (Bld) 0.5 % 0-1 [facility] Bilirubin [Mass/Vol] 0.30 mg/dL 0.20-1.00 [facility] Comment on above: For patients on eltr ombopag therapy, use of Dimension [place] TBIL is not recommended. Chloride [Moles/Vol] 108 mmol/L 98-107 [facility] Eosinophils/100 WBC (Bld) 0.0 % 0-5 [facility] Glucose [Mass/Vol] 136 mg/dL 74-106 [facility] Comment on above: Fasting Glucose resu lt greater than or equal to 126 mg/dL suggests DIABETES MELLITUS per A.D.A. criteria. Neutrophils (Bld) [#/Vol] 5.1 10*3/uL 2.0-7.7 [facility] Neutrophils/100 WBC (Bld) 81.8 % 47-70 [facility] Potassium [Moles/Vol] 4.1 mmol/L 3.5-5.1 [facility] Comment on above: Slight Hemolysis, Re sult may be falsely increased. Protein [Mass/Vol] 7.1 g/dL 6.4-8.2 [facility] Sodium [Moles/Vol] 140 mmol/L 136-145 [facility] WBC (Bld) [#/Vol] 6.2 10*3/uL 4.4-11.0 [facility] Bilirubin Test strip Ql (U)O rdered By: Lionel Neville on 05-18-2023 Bilirubin Ql (U) Negative Negative [facility] Blood erythrocytes count (nu mber/volume)Ordered By: Lionel Neville on 05-18-2023 RBC (Bld) [#/Vol] 4.28 10*6/uL 4.6-6.2 [facility] Blood hemoglobin measurement (mass/volume)Ordered By: Lionel Neville on 05-18-2023 Hemoglobin (Bld) [Mass/Vol] 13.1 g/dL 13.0-16.5 [facility] Blood lymphocytes/100 leukoc ytesOrdered By: Lionel Neville on 05-18-2023 Lymphocytes/100 WBC (Bld) 14.0 % 19-41 [facility] Blood monocytes/100 leukocyt esOrdered By: Lionel Neville on 05-18-2023 Monocytes/100 WBC (Bld) 3.2 % 0-10 [facility] Blood platelet mean volumeOr dered By: Lionel Neville on 05-18-2023 Platelet mean volume (Bld) [Entitic vol] 8.3 fL 6.2-12.0 [facility] Determination of erythrocyte mean corpuscular volume (MCV)Ordered By: Lionel Neville on 05-18-2023 MCV (RBC) [Entitic vol] 88.3 fL 80-94 [facility] Hematocrit Auto (Bld) [Volum e fraction]Ordered By: Lionel Neville on 05-18-2023 Hematocrit (Bld) [Volume fraction] 37.8 % 40-54 [facility] Ketones Test strip Ql (U)Ord ered By: Lionel Neville on 05-18-2023 Ketones Ql (U) Negative Negative [facility] Laboratory - Chemistry and C hemistry - challengeOrdered By: Lionel Neville on 05-18-2023 ALP [Catalytic activity/Vol] 68 U/L 45-117 [facility] ALT [Catalytic activity/Vol] 55 U/L 16-61 [facility] CO2 [Moles/Vol] 27.0 mmol/L 21.0-32.0 [facility] Globulin (S) [Mass/Vol] 3.5 g/dL 2.2-4.2 [facility] Urea nitrogen/Creatinine [Mass ratio] 10.5 mg/mg 10-20 [facility] Laboratory - Hematology and Cell countsOrdered By: Lionel Neville on 05-18-2023 Erythrocyte distribution width (RBC) [Entitic vol] 41.6 fL 35.1-43.9 [facility] Erythrocyte distribution width (RBC) [Ratio] 12.9 % 11.6-14.6 [facility] Immature granulocytes/100 WBC (Bld) 0.500 % 0.0-0.9 [facility] Comment on above: IG% - Immature Granu locytes (promyelocytes, myelocytes and metamyelocytes) > 1% indicates that a LEFT SHIFT is Present. MCH (RBC) [Entitic mass] 30.6 pg 27.0-32.0 [facility] Nucleated RBC/100 WBC (Bld) [Ratio] 0 % 0-5 [facility] Laboratory - Microbiology an d Antimicrobial susceptibilityOrdered By: Lionel Neville on 05-18-2023 SARS-CoV-2 (COVID-19) RNA VALARIE+probe Ql (Unsp spec) RSV [facility] MCHC Auto (RBC) [Mass/Vol]Or dered By: Lionel Neville on 05-18-2023 MCHC (RBC) [Mass/Vol] 34.7 g/dL 32-36 [facility] Mucus LM Ql (Urine sed)Order ed By: Lionel Neville on 05-18-2023 Mucus Ql (Urine sed) 0 SEEN /hpf [facility] Nitrite Test strip Ql (U)Ord ered By: Lionel Neville on 05-18-2023 Nitrite Ql (U) Negative Negative [facility] No Panel InformationOrdered By: Lionel Neville on 05-18-2023 D-Dimer Quantitative (PE/DVT) 0.33 FEU/ug/m 0.27-0.49 [facility] Comment on above: NORMAL D-Dimer level (<0.50) indicates no DVT or PE. Estimated Creatinine Clearance Calc 76.84 ml/min [facility] Estimated GFR (MDRD) Amer 102 mL/min >60 [facility] Comment on above: GFR Calc Estimated GFR (MDRD) Non-Af Amer 84 mL/min >60 [facility] Comment on above: Non- GFR Calc Troponin I High Sensitivity 4 pg/mL 3.0-78.0 [facility] Comment on above: Please Note: New Jessica t Units and Gender Specific Reference Ranges. For more information see Policy Stat Procedure [place] High Sensitivity Troponin (TNIH) and attachments. Platelets bldOrdered By: Daniella Neville on 05-18-2023 Platelets (Bld) [#/Vol] 259 10*3/uL 150-450 [facility] Protein Test strip Ql (U)Ord ered By: Lionel Neville on 05-18-2023 Protein Ql (U) Negative Negative [facility] Serum or plasma albumin adair urement (mass/volume)Ordered By: Lionel Neville on 05-18-2023 Albumin [Mass/Vol] 3.6 g/dL 3.2-5.0 [facility] Serum or plasma albumin/glob ulin mass ratioOrdered By: Lionel Neville on 05-18-2023 Albumin/Globulin [Mass ratio] 1.0 {ratio} 0.9-2.4 [facility] Serum or plasma calcium adair urement (mass/volume)Ordered By: Lionel Neville on 05-18-2023 Calcium [Mass/Vol] 9.1 mg/dL 8.5-10.1 [facility] Serum or plasma creatinine m easurement (mass/volume)Ordered By: Lionel Neville on 05-18-2023 Creatinine [Mass/Vol] 0.95 mg/dL 0.70-1.30 [facility] Comment on above: The validity of the calculated GFR & GFRAA in patients over 70 years has not been determined. Clinical correlation is essential. Serum or plasma urea nitroge n measurement (mass/volume)Ordered By: Lionel Neville on 05-18-2023 Urea nitrogen [Mass/Vol] 10 mg/dL 7-18 [facility] Squamous epithelial cells de tection in urine sediment by light microscopyOrdered By: Lionel Neville on 05-18-2023 Epithelial cells.squamous LM Ql (Urine sed) 0-5 SEEN /hpf 0-5 [facility] Thin prep Papanicolaou smear with manual screeningOrdered By: Lionel Neville on 05-18-2023 Thin prep Papanicolaou smear with manual screening 47 U/L 15-37 [facility] Comment on above: Slight Hemolysis, Re sult may be falsely increased. Thin prep Papanicolaou smear with manual screening 5 5-15 [facility] Urine blood detectionOrdered By: Lionel Neville on 05-18-2023 RBC Ql (U) Negative Negative [facility] RBC Ql (U) 0 SEEN /hpf 0-5 [facility] Urine clarityOrdered By: Daniella Neville on 05-18-2023 Clarity (U) Clear Clear [facility] Urine color determinationOrd ered By: Lionel Neville on 05-18-2023 Color (U) Yellow Yellow [facility] Urine glucose detectionOrder ed By: Lionel Neville on 05-18-2023 Glucose Ql (U) Normal mg/dl Normal [facility] Urine leukocyte esterase det ection by dipstickOrdered By: Lionel Neville on 05-18-2023 Leukocyte esterase Test strip Ql (U) Negative Negative [facility] Urine pHOrdered By: Lionel cadet on 05-18-2023 pH (U) 6.5 [pH] 5.0 - 8.0 [facility] Urine sediment bacteria coun t by microscopy (number/high power field)Ordered By: Lionel Neville on 05-18-2023 Bacteria LM.HPF (Urine sed) [#/Area] 0 /[HPF] None Seen [facility] Urine specific gravity measu rementOrdered By: Lionel Neville on 05-18-2023 Specific gravity (U) [Rel density] 1.005 1.002-1.03 0 [facility] Urobilinogen Auto test strip Ql (U)Ordered By: Lionel Neville on 05-18-2023 Urobilinogen Ql (U) Normal mg/dl Normal [facility] CNPUzma 04-30-2023 CNPN Telephone (AGCFM) TARA ARELLANO ([id number]) 1955 M Date Time Provider Department 04/30/23 [address]-[facility] During your visit today, we recorded the following information about you: Andry Jean-Baptiste MD 04/30/2023 11:29 AM Signed Let pt know recent labs were ok. Zohaib Jalloh 04/30/2023 11:56 AM Signed Talked to patient and he verbally understands his recent labs were ok. Zohaib Jalloh Allergies As of Date: 04/30/2023 Noted Allergy Reaction BEES 07/06/2018 4 - Hives CODEINE 02/10/2005 16 - Unknown DARVOCET A500 (PROPOXYPHENE N-GUY*02/10/2005 16 - Unknown DARVON (PROPOXYPHENE HCL) 02/10/2005 16 - Unknown DEMEROL (MEPERIDINE HCL) 02/10/2005 16 - Unknown LIPITOR (ATORVASTATIN CALCIUM) 06/19/2016 14 - Other: See Comments Comments: Made legs feel weak. MORPHINE 07/06/2014 14 - Other: See Comments Comments: hypotension PNEUMOCOCCAL 23-SINAN PS VACCINE 03/25/2013 7 - Swelling Comments: Localized swelling Date Reviewed: 04/16/2023 Reviewed by: Teri Gross MD - Fully Assessed Reason for Visit: Results [95] Prescriptions as of 04/30/2023 - levoFLOXacin (LEVAQUIN) 500 mg tablet Take 1 tablet by mouth once daily for 10 days. - mifetgnpar-bntudlxa-ppefnxu rol (BREZTRI AEROSPHERE) 160-9-4.8 mcg/actuation HFA aerosol inhaler Inhale 2 Puffs as instructed two times a day. - benzonatate (TESSALON PERLE) 100 mg capsule Take 2 capsules by mouth three times a day as needed. - albuterol HFA (VENTOLIN HFA) 90 mcg/actuation inhaler Inhale 2 Puffs as instructed every 6 hours as needed for wheezing/shortness of breath. - budesonide-formoterol (SYMBICORT) 80-4.5 mcg/actuation inhaler Inhale 2 Puffs as instructed two times a day. - cholecalciferol, Vitamin D3, (VITAMIN D3) 1,250 mcg (50,000 unit) cap capsule Take 1 capsule by mouth one time a week. - triamcinolone acetonide topical 0.5 % ointment Apply to affected area twice daily. May use up to 2 weeks. - pravastatin (PRAVACHOL) 40 mg tablet Take 1 tablet by mouth once daily. - omeprazole (PRILOSEC) 40 mg capsule Take 1 capsule by mouth twice daily. - Benzonatate 200 mg capsule Take 1 capsule by mouth three times daily as needed. - nitroglycerin sublingual (NITROSTAT) 0.4 mg SL tablet Dissolve 1 tablet under the tongue every 5 minutes as needed for chest pain. Max of three in a row - cyanocobalamin, vitamin B-12, (VITAMIN B-12 ORAL) Take 2 tablets by mouth once daily. - EPINEPHrine (EPIPEN) 0.3 mg/0.3 mL auto-injector If symptoms of allergic reaction follow instruction on package insert. - omega-3 fatty acids 1,000 mg cap Take 1 capsule by mouth once daily. - Iron 40 mg cap Take 1 tablet by mouth once daily. - CALCIUM CARBONATE/VITAMIN D3 (CALCIUM + D ORAL) Take 1 tablet by mouth once daily. Problem List As Of Date 04/30/2023 Noted Resolved Hemorrhage of rectum and anus [K62.5] 01/13/2013 Diaphragmatic hernia with obstruction [K44.0] 01/13/2013 H/O hiatal hernia [Z87.19] Vitamin D deficiency [E55.9] CAD (coronary artery disease) [I25.10] Pulmonary emphysema (HCC) [J43.9] Lumbar disc disease [M51.9] 12/14/2015 Post-traumatic headache [G44.309] 12/14/2015 Chronic low back pain [M54.50, G89.29] 12/14/2015 Primary insomnia [F51.01] 12/14/2015 Mixed hyperlipidemia [E78.2] 06/16/2016 GERD without esophagitis [K21.9] 06/30/2016 Bilateral carotid artery disease (HCC) [I77.9] 08/16/2016 INDIA (obstructive sleep apnea) [G47.33] 08/19/2016 Screening for colon cancer [Z12.11] 12/10/2016 Neck pain [M54.2] 12/18/2017 Diverticulosis of colon [K57.30] 06/24/2018 Intractable chronic migraine without aura and w*07/07/2018 Medication overuse headache [G44.40] 07/07/2018 Malabsorption syndrome [K90.9] 10/13/2018 History of gastric bypass [Z98.84] 10/13/2018 Iron deficiency anemia secondary to inadequate *01/17/2019 Elevated fasting blood sugar [R73.01] 01/25/2019 Chronic abdominal pain [R10.9, G89.29] 04/18/2019 Ex-smoker [Z87.891] 08/29/2020 Family history of colon cancer [Z80.0] 08/29/2020 Hemorrhoids [K64.9] 08/29/2020 Prostate disorder [N42.9] 08/29/2020 Medication management [Z79.899] 08/29/2020 Medicare annual wellness visit, initial [Z00.00]03/04/2021 Advance directive discussed with patient [Z71.8*09/03/[address] [Z78.9] 03/07/2022 Encounter Status:Closed by ZOHAIB JALLOH on 04/30/23 Normal [facility] AMYLASE BLDon 04-28-2023 Amylase [Catalytic activity/Vol] 37 U/L 30 - 104 U/L [facility] CBC W Auto Differential pane l (Bld)on 04-28-2023 Basophils (Bld) [#/Vol] 0.09 10*3/uL <0.11 k/uL [facility] Basophils/100 WBC (Bld) 1.4 % [facility] Differential cell count method Nom (Bld) Auto [facility] Eosinophils (Bld) [#/Vol] 0.20 10*3/uL <0.46 k/uL [facility] Eosinophils/100 WBC (Bld) 3.2 % [facility] Erythrocyte distribution width (RBC) [Ratio] 13.2 % 11.5 - 15.0 % [facility] Hematocrit (Bld) [Volume fraction] 40.1 % 39.0 - 51.0 % [facility] Hemoglobin (Bld) [Mass/Vol] 13.4 g/dL 13.0 - 17.0 g/dL [facility] Immature granulocytes (Bld) [#/Vol] <0.10 k/uL [facility] Immature granulocytes/100 WBC (Bld) 0.3 % [facility] Lymphocytes (Bld) [#/Vol] 1.49 10*3/uL 1.00 - 4.00 k/uL [facility] Lymphocytes/100 WBC (Bld) 24.0 % [facility] MCH (RBC) [Entitic mass] 30.8 pg 26.0 - 34.0 pg [facility] MCHC (RBC) [Mass/Vol] 33.4 g/dL 30.5 - 36.0 g/dL [facility] MCV (RBC) [Entitic vol] 92.2 fL 80.0 - 100.0 fL [facility] Monocytes (Bld) [#/Vol] 0.54 10*3/uL <0.87 k/uL [facility] Monocytes/100 WBC (Bld) 8.7 % [facility] Neutrophils (Bld) [#/Vol] 3.87 10*3/uL 1.45 - 7.50 k/uL [facility] Neutrophils/100 WBC (Bld) 62.4 % [facility] Nucleated RBC (Bld) [#/Vol] <0.01 k/uL [facility] Nucleated RBC/100 WBC (Bld) [Ratio] 0.0 /100 WBC [facility] Platelet mean volume (Bld) [Entitic vol] 8.9 fL Low 9.0 - 12.7 fL [facility] Platelets (Bld) [#/Vol] 309 10*3/uL 150 - 400 k/uL [facility] RBC (Bld) [#/Vol] 4.35 10*6/uL 4.20 - 6.00 m/uL [facility] WBC (Bld) [#/Vol] 6.21 10*3/uL 3.70 - 11.00 k/uL [facility] Hepatic function 2000 panelo n 04-28-2023 Albumin [Mass/Vol] 4.5 g/dL 3.9 - 4.9 g/dL [facility] ALP [Catalytic activity/Vol] 63 U/L 38 - 113 U/L [facility] ALT [Catalytic activity/Vol] 29 U/L 10 - 54 U/L [facility] AST [Catalytic activity/Vol] 29 U/L 14 - 40 U/L [facility] Bilirubin [Mass/Vol] 0.3 mg/dL 0.2 - 1 .3 mg/dL [facility] Bilirubin.conjugated [Mass/Vol] <0.2 mg/dL [facility] Protein [Mass/Vol] 6.7 g/dL 6.3 - 8.0 g/dL [facility] LIPASE BLDon 04-28-2023 Lipase [Catalytic activity/Vol] 34 U/L 16 - 61 U/L [facility] XR CHEST 2V FRONTAL/LATon [facility] [place] XR Chest PA and Lateralon IMPRESSION: Stable exam with no acute radiographic abnormality. Postal Inspector: PSCB Transcribe Date/Time: Apr 28 2023 12:44P Dictated by : VERA ALFARO MD This examination was interpreted and the report reviewed and electronically signed by: VERA ALFARO MD on Apr 28 2023 12:45PM [facility] DIVISION OF RADIOLOGY * * *Final Report* * * DATE OF EXAM: Apr 28 2023 12:28PM WOX 5291 - XR CHEST 2V FRONTAL/LAT / PROCEDURE REASON: multiple diagnoses * * * * Physician Interpretation * * * * EXAMINATION: CHEST RADIOGRAPH (2 VIEW FRONTAL & LATERAL) CLINICAL HISTORY: URI, acute SOB (shortness of breath) MQ: XC2_6 EXAM DATE/TIME: 04/28/2023 12:28 PM COMPARISON: 03/12/2023. RESULT: Lines, tubes, and devices: None. Lungs and pleura: No consolidation. No lung mass. No pleural effusion. No pneumothorax. Cardiomediastinal silhouette: Stable cardiomediastinal silhouette with calcified lymph nodes in the right hilum. Bones and soft tissues: Unremarkable. DIVISION OF RADIOLOGY Provider, [facility] - 04/28/2023 * * *Final Report* * * DATE OF EXAM: Apr 28 2023 12:28PM WOX 5291 - XR CHEST 2V FRONTAL/LAT / PROCEDURE REASON: multiple diagnoses * * * * Physician Interpretation * * * * EXAMINATION: CHEST RADIOGRAPH (2 VIEW FRONTAL & LATERAL) CLINICAL HISTORY: URI, acute SOB (shortness of breath) MQ: XC2_6 EXAM DATE/TIME: 04/28/2023 12:28 PM COMPARISON: 03/12/2023. RESULT: Lines, tubes, and devices: None. Lungs and pleura: No consolidation. No lung mass. No pleural effusion. No pneumothorax. Cardiomediastinal silhouette: Stable cardiomediastinal silhouette with calcified lymph nodes in the right hilum. Bones and soft tissues: Unremarkable. IMPRESSION IMPRESSION: Stable exam with no acute radiographic abnormality. Postal Inspector: THONG Transcribe Date/Time: Apr 28 2023 12:44P Dictated by : VERA ALFARO MD This examination was interpreted and the report reviewed and electronically signed by: VERA ALFARO MD on Apr 28 2023 12:45PM EST [facility] [place] Radiology Study observation (narrative) [facility] XR Chest PA and LateralOrder ed By: Ccf Provider on 04-28-2023 [facility] No Panel Informationon 04-16 [facility] SPIROMETRY WITH DILATOR IF O BSTRUCTEDon 04-16-2023 DLCO (ml/min/mmHg) 23.19 ml/min/mmHg [facility] [place] DLCO/VA (ml/min/mmHg/L) 4.56 ml/min/mmHg/L [facility] [place] [id number]% POST (L/S) 2.21 L/S [facility] [id number]% PRE (L/S) 0.93 L/S [facility] FEV1 PRE (L) 2.24 L [facility] FEV1/FVC POST (%) 66 % [facility] FEV1/FVC PRE (%) 64 % [facility] FEV1_POST (L) 2.65 L [facility] FVC POST (L) 3.99 L [facility] FVC PRE (L) 3.51 L [facility] PEF POST (L/S) 5.40 L/S [facility] PEF PRE (L/S) 4.10 L/S [facility] VA (L) 5.09 L [facility] Absolute lymphocyte countOrd ered By: Thor Oswald on 03-20-2023 Lymphocytes Auto (Unsp spec) [#/Vol] 1.52 10*3/uL 0.83-4.51 [facility] Basophil percentageOrdered B y: Thor Oswald on 03-20-2023 Basophils/100 WBC (Bld) 1.0 % 0-1 [facility] Chloride [Moles/Vol] 103 mmol/L 98-107 [facility] Eosinophils/100 WBC (Bld) 4.5 % 0-5 [facility] Glucose [Mass/Vol] 107 mg/dL 74-106 [facility] Comment on above: Fasting Glucose resu lt from 100 to 125 mg/dL suggests IMPAIRED HOMEOSTASIS per A.D.A. criteria. Neutrophils (Bld) [#/Vol] 4.1 10*3/uL 2.0-7.7 [facility] Neutrophils/100 WBC (Bld) 60.5 % 47-70 [facility] Potassium [Moles/Vol] 4.1 mmol/L 3.5-5.1 [facility] Sodium [Moles/Vol] 139 mmol/L 136-145 [facility] WBC (Bld) [#/Vol] 6.7 10*3/uL 4.4-11.0 [facility] Blood erythrocytes count (nu mber/volume)Ordered By: Thor Oswald on 03-20-2023 RBC (Bld) [#/Vol] 4.31 10*6/uL 4.6-6.2 [facility] Blood hemoglobin measurement (mass/volume)Ordered By: Thor Oswald on 03-20-2023 Hemoglobin (Bld) [Mass/Vol] 13.3 g/dL 13.0-16.5 [facility] Blood lymphocytes/100 leukoc ytesOrdered By: Thor Oswald on 03-20-2023 Lymphocytes/100 WBC (Bld) 22.7 % 19-41 [facility] Blood monocytes/100 leukocyt esOrdered By: Thor Oswald on 03-20-2023 Monocytes/100 WBC (Bld) 8.8 % 0-10 [facility] Blood platelet mean volumeOr dered By: Thor Oswald on 03-20-2023 Platelet mean volume (Bld) [Entitic vol] 8.1 fL 6.2-12.0 [facility] Determination of erythrocyte mean corpuscular volume (MCV)Ordered By: Thor Oswald on 03-20-2023 MCV (RBC) [Entitic vol] 93.0 fL 80-94 [facility] Hematocrit Auto (Bld) [Volum e fraction]Ordered By: Thor Oswald on 03-20-2023 Hematocrit (Bld) [Volume fraction] 40.1 % 40-54 [facility] Laboratory - Chemistry and C hemistry - challengeOrdered By: Thor Oswald on 03-20-2023 CO2 [Moles/Vol] 30.0 mmol/L 21.0-32.0 [facility] Natriuretic peptide B (Bld) [Mass/Vol] 3.3 pg/mL 0-100 [facility] Urea nitrogen/Creatinine [Mass ratio] 20.7 mg/mg 10-20 [facility] Laboratory - Hematology and Cell countsOrdered By: Thor Oswald on 03-20-2023 Erythrocyte distribution width (RBC) [Entitic vol] 43.8 fL 35.1-43.9 [facility] Erythrocyte distribution width (RBC) [Ratio] 12.8 % 11.6-14.6 [facility] Immature granulocytes/100 WBC (Bld) 2.500 % 0.0-0.9 [facility] Comment on above: IG% - Immature Granu locytes (promyelocytes, myelocytes and metamyelocytes) > 1% indicates that a LEFT SHIFT is Present. MCH (RBC) [Entitic mass] 30.9 pg 27.0-32.0 [facility] Nucleated RBC/100 WBC (Bld) [Ratio] 0 % 0-5 [facility] MCHC Auto (RBC) [Mass/Vol]Or dered By: Thor Oswald on 03-20-2023 MCHC (RBC) [Mass/Vol] 33.2 g/dL 32-36 [facility] No Panel InformationOrdered By: Thor Oswald on 03-20-2023 D-Dimer Quantitative (PE/DVT) 0.31 FEU/ug/m 0.27-0.49 [facility] Comment on above: NORMAL D-Dimer level (<0.50) indicates no DVT or PE. Estimated Creatinine Clearance Calc 89.02 ml/min [facility] Estimated GFR (MDRD) Amer 120 mL/min >60 [facility] Comment on above: GFR Calc Estimated GFR (MDRD) Non-Af Amer 99 mL/min >60 [facility] Comment on above: Non- GFR Calc Troponin I High Sensitivity 4 pg/mL 3.0-78.0 [facility] Comment on above: Please Note: New Jessica t Units and Gender Specific Reference Ranges. For more information see Policy Stat Procedure [place] High Sensitivity Troponin (TNIH) and attachments. Platelets bldOrdered By: Maribel avilalenny Radha on 03-20-2023 Platelets (Bld) [#/Vol] 294 10*3/uL 150-450 [facility] Serum or plasma calcium adair urement (mass/volume)Ordered By: Thor Oswald on 03-20-2023 Calcium [Mass/Vol] 8.9 mg/dL 8.5-10.1 [facility] Serum or plasma creatinine m easurement (mass/volume)Ordered By: Thor Oswald on 03-20-2023 Creatinine [Mass/Vol] 0.82 mg/dL 0.70-1.30 [facility] Comment on above: The validity of the calculated GFR & GFRAA in patients over 70 years has not been determined. Clinical correlation is essential. Serum or plasma urea nitroge n measurement (mass/volume)Ordered By: Thor Oswald on 03-20-2023 Urea nitrogen [Mass/Vol] 17 mg/dL 7-18 [facility] Thin prep Papanicolaou smear with manual screeningOrdered By: Thor Oswald on 03-20-2023 Thin prep Papanicolaou smear with manual screening 6 5-15 [facility] XR Chest PA and Lateralon IMPRESSION: No acute radiographic abnormality. Postal Inspector: THONG Transcribe Date/Time: Mar 12 2023 3:49P Dictated by : TOMI ABBOTT MD This examination was interpreted and the report reviewed and electronically signed by: TOMI ABBOTT MD on Mar 12 2023 3:53PM [facility] DIVISION OF RADIOLOGY * * *Final Report* * * DATE OF EXAM: Mar 12 2023 3:48PM WOX 5291 - XR CHEST 2V FRONTAL/LAT / PROCEDURE REASON: Acute cough * * * * Physician Interpretation * * * * EXAMINATION: CHEST RADIOGRAPH (2 VIEW FRONTAL & LATERAL) CLINICAL HISTORY: Acute cough MQ: XC2_6 EXAM DATE/TIME: 03/12/2023 3:48 PM COMPARISON: Chest x-ray 10/24/2021 RESULT: Lines, tubes, and devices: None. Lungs and pleura: No consolidation. No lung mass. No pleural effusion. No pneumothorax. Cardiomediastinal silhouette: Normal cardiomediastinal silhouette. Bones and soft tissues: Unremarkable. DIVISION OF RADIOLOGY Provider, Trent Husian - 03/12/2023 * * *Final Report* * * DATE OF EXAM: Mar 12 2023 3:48PM WOX 5291 - XR CHEST 2V FRONTAL/LAT / PROCEDURE REASON: Acute cough * * * * Physician Interpretation * * * * EXAMINATION: CHEST RADIOGRAPH (2 VIEW FRONTAL & LATERAL) CLINICAL HISTORY: Acute cough MQ: XC2_6 EXAM DATE/TIME: 03/12/2023 3:48 PM COMPARISON: Chest x-ray 10/24/2021 RESULT: Lines, tubes, and devices: None. Lungs and pleura: No consolidation. No lung mass. No pleural effusion. No pneumothorax. Cardiomediastinal silhouette: Normal cardiomediastinal silhouette. Bones and soft tissues: Unremarkable. IMPRESSION IMPRESSION: No acute radiographic abnormality. Postal Inspector: PSCB Transcribe Date/Time: Mar 12 2023 3:49P Dictated by : TOMI ABBOTT MD This examination was interpreted and the report reviewed and electronically signed by: TOMI ABBOTT MD on Mar 12 2023 3:53PM EST [facility] [place] Radiology Study [facility]narrative[facility] XR Chest PA and LateralOrder ed By: Ccf Provider on 03-12-2023 [facility] Absolute lymphocyte countOrd ered By: Ronak Miller on 02-09-2023 Lymphocytes Auto (Unsp spec) [#/Vol] 0.68 10*3/uL 0.83-4.51 [facility] Amorphous sediment detection in urine sediment by light microscopyOrdered By: Ronak Miller on 02-09-2023 Amorphous sediment LM Ql (Urine sed) 1+ URATE [facility] Basophil percentageOrdered B y: Ronak Miller on 02-09-2023 Basophil percentage 0 SEEN /hpf 0-5 [facility] Basophils/100 WBC (Bld) 0.3 % 0-1 [facility] Bilirubin [Mass/Vol] 0.50 mg/dL 0.20-1.00 [facility] Comment on above: For patients on eltr ombopag therapy, use of Dimension [place] TBIL is not recommended. Chloride [Moles/Vol] 106 mmol/L 98-107 [facility] Eosinophils/100 WBC (Bld) 0.9 % 0-5 [facility] Glucose [Mass/Vol] 106 mg/dL 74-106 [facility] Comment on above: Fasting Glucose resu lt from 100 to 125 mg/dL suggests IMPAIRED HOMEOSTASIS per A.D.A. criteria. Neutrophils (Bld) [#/Vol] 9.7 10*3/uL 2.0-7.7 [facility] Neutrophils/100 WBC (Bld) 84.8 % 47-70 [facility] Potassium [Moles/Vol] 4.2 mmol/L 3.5-5.1 [facility] Protein [Mass/Vol] 7.1 g/dL 6.4-8.2 [facility] Sodium [Moles/Vol] 139 mmol/L 136-145 [facility] WBC (Bld) [#/Vol] 11.5 10*3/uL 4.4-11.0 [facility] Bilirubin Test strip Ql (U)O rdered By: Ronak Miller on 02-09-2023 Bilirubin Ql (U) Negative Negative [facility] Blood erythrocytes count (nu mber/volume)Ordered By: Ronak Miller on 02-09-2023 RBC (Bld) [#/Vol] 4.66 10*6/uL 4.6-6.2 [facility] Blood hemoglobin measurement (mass/volume)Ordered By: Ronak Miller on 02-09-2023 Hemoglobin (Bld) [Mass/Vol] 14.0 g/dL 13.0-16.5 [facility] Blood lymphocytes/100 leukoc ytesOrdered By: Ronak Miller on 02-09-2023 Lymphocytes/100 WBC (Bld) 5.9 % 19-41 [facility] Blood monocytes/100 leukocyt esOrdered By: Ronak Miller on 02-09-2023 Monocytes/100 WBC (Bld) 7.8 % 0-10 [facility] Blood platelet mean volumeOr dered By: Ronak Miller on 02-09-2023 Platelet mean volume (Bld) [Entitic vol] 9.1 fL 6.2-12.0 [facility] Determination of erythrocyte mean corpuscular volume (MCV)Ordered By: Ronak Miller on 02-09-2023 MCV (RBC) [Entitic vol] 89.9 fL 80-94 [facility] Hematocrit Auto (Bld) [Volum e fraction]Ordered By: Ronak Miller on 02-09-2023 Hematocrit (Bld) [Volume fraction] 41.9 % 40-54 [facility] Ketones Test strip Ql (U)Ord ered By: Ronak Miller on 02-09-2023 Ketones Ql (U) Negative Negative [facility] Laboratory - Chemistry and C hemistry - challengeOrdered By: Ronak Miller on 02-09-2023 ALP [Catalytic activity/Vol] 85 U/L 45-117 [facility] ALT [Catalytic activity/Vol] 114 U/L 16-61 [facility] CO2 [Moles/Vol] 28.0 mmol/L 21.0-32.0 [facility] Globulin (S) [Mass/Vol] 3.1 g/dL 2.2-4.2 [facility] Lipase [Catalytic activity/Vol] 42 U/L 13-75 [facility] Comment on above: Please note:LIPASE r evised reference range effective 22. New Lipase methodology. Expected to produce lower values than the previous assay method. NEW Reference Range: 13 - 75 U/L Urea nitrogen/Creatinine [Mass ratio] 17.7 mg/mg 10-20 [facility] Laboratory - Hematology and Cell countsOrdered By: Ronak Miller on 02-09-2023 Erythrocyte distribution width (RBC) [Entitic vol] 41.4 fL 35.1-43.9 [facility] Erythrocyte distribution width (RBC) [Ratio] 12.6 % 11.6-14.6 [facility] Immature granulocytes/100 WBC (Bld) 0.300 % 0.0-0.9 [facility] Comment on above: IG% - Immature Granu locytes (promyelocytes, myelocytes and metamyelocytes) > 1% indicates that a LEFT SHIFT is Present. MCH (RBC) [Entitic mass] 30.0 pg 27.0-32.0 [facility] Nucleated RBC/100 WBC (Bld) [Ratio] 0 % 0-5 [facility] MCHC Auto (RBC) [Mass/Vol]Or dered By: Ronak Miller on 02-09-2023 MCHC (RBC) [Mass/Vol] 33.4 g/dL 32-36 [facility] Mucus LM Ql (Urine sed)Order ed By: Ronak Miller on 02-09-2023 Mucus Ql (Urine sed) 0 SEEN /hpf [facility] Nitrite Test strip Ql (U)Ord ered By: Ronak Miller on 02-09-2023 Nitrite Ql (U) Negative Negative [facility] No Panel InformationOrdered By: Ronak Miller on 02-09-2023 Estimated GFR (MDRD) Amer 107 mL/min >60 [facility] Comment on above: GFR Calc Estimated GFR (MDRD) Non-Af Amer 89 mL/min >60 [facility] Comment on above: Non- GFR Calc Troponin I High Sensitivity 4 pg/mL 3.0-78.0 [facility] Comment on above: Please Note: New Jessica t Units and Gender Specific Reference Ranges. For more information see Policy Stat Procedure [place] High Sensitivity Troponin (TNIH) and attachments. Platelets bldOrdered By: Surekha Miller on 02-09-2023 Platelets (Bld) [#/Vol] 242 10*3/uL 150-450 [facility] Protein Test strip Ql (U)Ord ered By: Ronak Miller on 02-09-2023 Protein Ql (U) Negative Negative [facility] Serum or plasma albumin adair urement (mass/volume)Ordered By: Ronak Miller on 02-09-2023 Albumin [Mass/Vol] 4.0 g/dL 3.2-5.0 [facility] Serum or plasma albumin/glob ulin mass ratioOrdered By: Ronak Miller on 02-09-2023 Albumin/Globulin [Mass ratio] 1.3 {ratio} 0.9-2.4 [facility] Serum or plasma calcium adair urement (mass/volume)Ordered By: Ronak Miller on 02-09-2023 Calcium [Mass/Vol] 9.1 mg/dL 8.5-10.1 [facility] Serum or plasma creatinine m easurement (mass/volume)Ordered By: Ronak Miller on 02-09-2023 Creatinine [Mass/Vol] 0.90 mg/dL 0.70-1.30 [facility] Comment on above: The validity of the calculated GFR & GFRAA in patients over 70 years has not been determined. Clinical correlation is essential. Serum or plasma urea nitroge n measurement (mass/volume)Ordered By: Ronak Miller on 02-09-2023 Urea nitrogen [Mass/Vol] 16 mg/dL 7-18 [facility] Squamous epithelial cells de tection in urine sediment by light microscopyOrdered By: Ronak Miller on 02-09-2023 Epithelial cells.squamous LM Ql (Urine sed) 0-5 SEEN /hpf 0-5 [facility] Thin prep Papanicolaou smear with manual screeningOrdered By: Ronak Miller on 02-09-2023 Thin prep Papanicolaou smear with manual screening 144 U/L 15-37 [facility] Thin prep Papanicolaou smear with manual screening 5 5-15 [facility] Urine blood detectionOrdered By: Ronak Miller on 02-09-2023 RBC Ql (U) Negative Negative [facility] RBC Ql (U) 0 SEEN /hpf 0-5 [facility] Urine clarityOrdered By: Surekha Miller on 02-09-2023 Clarity (U) Clear Clear [facility] Urine color determinationOrd ered By: Ronak Miller on 02-09-2023 Color (U) Yellow Yellow [facility] Urine glucose detectionOrder ed By: Ronak Miller on 02-09-2023 Glucose Ql (U) Normal mg/dl Normal [facility] Urine leukocyte esterase det ection by dipstickOrdered By: Ronak Miller on 02-09-2023 Leukocyte esterase Test strip Ql (U) Negative Negative [facility] Urine pHOrdered By: Ronak sainz on 02-09-2023 pH (U) 5.0 [pH] 5.0 - 8.0 [facility] Urine sediment bacteria coun t by microscopy (number/high power field)Ordered By: Ronak Miller on 02-09-2023 Bacteria LM.HPF (Urine sed) [#/Area] 0 /[HPF] None Seen [facility] Urine specific gravity measu rementOrdered By: Ronak Miller on 02-09-2023 Specific gravity (U) [Rel density] 1.015 1.002-1.03 0 [facility] Urobilinogen Auto test strip Ql (U)Ordered By: Ronak Miller on 02-09-2023 Urobilinogen Ql (U) Normal mg/dl Normal [facility] Microbial respiratory cultur eOrdered By: Dr. Dumas on 10-06-2022 Bacteria identified Respiratory culture Nom (Unsp spec) [facility] Gram stain for investigation of transfusion reactionOrdered By: Dr. Dumas on 10-05-2022 Microscopic observation Gram stain Nom (Unsp spec) [facility] Basophil percentageOrdered B y: Jasoneric Nelson on 09-23-2022 Creatinine [Mass/Vol] 1.0 mg/dL 0.70-1.30 [facility] No Panel InformationOrdered By: Jason Nelson on 09-23-2022 Bedside Estimated GFR (eGFR) > 60.0000 mL/min >60 [facility] Influenza virus A and B RNA and SARS-CoV-2 (COVID-19) N gene panel VALARIE+probe (Resp)on 05-02-2022 FLUAV RNA VALARIE+probe Ql (Unsp spec) Negative Negative for Influenza A by RT-PCR [facility] FLUBV RNA VALARIE+probe Ql (Unsp spec) Negative Negative for Influenza B by RT-PCR [facility] SARS-CoV-2 (COVID-19) RNA VALARIE+probe Ql (Resp) SARS-CoV-2 (Agent of COVID-19) Detected by RT-PCR or equivalent method. Abnormal Not Detected [facility] XR RIBS/CHEST 3V AP RIB/OBLS /CXR LEFTon 10-24-2021 [facility] XR Ribs - left Views and [address]ina st PAon 10-24-2021 IMPRESSION: Negative ribs. Postal Inspector: PSCB Transcribe Date/Time: Oct 24 2021 2:17P Dictated by : KELLY CONRAD MD This examination was interpreted and the report reviewed and electronically signed by: KELLY CONRAD MD on Oct 24 2021 2:20PM EST ZZZ_DO_NOT _USE_DIVIS ION OF RADIOLOGY * * *Final Report* * * DATE OF EXAM: Oct 24 2021 12:04PM WOX 5243 - XR RIB/CHST 3V AP RIB/OBL/CHST L / PROCEDURE REASON: Left-sided chest wall pain * * * * Physician Interpretation * * * * EXAMINATION: XR RIB/CHST 3V AP RIB/OBL/CHST L HISTORY: Pain in lower left ribs since first gastric surgery. Left-sided chest wall pain. TECHNIQUE: XR RIB/CHST 3V AP RIB/OBL/CHST L Laterality: LEFT Number of different views (projections): 3 M: XB_1 COMPARISON: Comparison is made to prior 2 view chest dated 03/15/2019 RESULT: Frontal radiograph of the chest and dedicated views of the left ribs show no evidence of pneumothorax, hemothorax or pulmonary contusion. There is calcified residual of prior granulomatous infection. The visualized bony structures are intact without apparent displaced or nondisplaced rib fracture. ZZZ_DO_NOT _USE_DIVIS [facility] OF RADIOLOGY Provider, [facility] - 10/24/2021 * * *Final Report* * * DATE OF EXAM: Oct 24 2021 12:04PM WOX 5243 - XR RIB/CHST 3V AP RIB/OBL/CHST L / PROCEDURE REASON: Left-sided chest wall pain * * * * Physician Interpretation * * * * EXAMINATION: XR RIB/CHST 3V AP RIB/OBL/CHST L HISTORY: Pain in lower left ribs since first gastric surgery. Left-sided chest wall pain. TECHNIQUE: XR RIB/CHST 3V AP RIB/OBL/CHST L Laterality: LEFT Number of different views (projections): 3 M: XB_1 COMPARISON: Comparison is made to prior 2 view chest dated 03/15/2019 RESULT: Frontal radiograph of the chest and dedicated views of the left ribs show no evidence of pneumothorax, hemothorax or pulmonary contusion. There is calcified residual of prior granulomatous infection. The visualized bony structures are intact without apparent displaced or nondisplaced rib fracture. IMPRESSION IMPRESSION: Negative ribs. Postal Inspector: THONG Transcribe Date/Time: Oct 24 2021 2:17P Dictated by : KELLY CONRAD MD This examination was interpreted and the report reviewed and electronically signed by: KELLY CONRAD MD on Pop 16 2022 2:20PM [facility] Radiology Study observation (narrative) [facility] XR Ribs - left Views and Sabina st PAOrdered By: Ccf Provider on 10-24-2021 [facility] Basic Panelon 04-20-2019 Creatinine [Mass/Vol] 0.81 mg/dL Normal 0.67-1.17 [facility] Comment on above: Performed By: #### I RONS #### [facility] [address] [place], [place] [address] Anion gap [Moles/Vol] 7 mmol/L Low 8-16 [facility] Comment on above: Performed By: #### I RONS #### [address] [address] CO2 [Moles/Vol] 30 mmol/L Normal 21-32 [facility] Comment on above: Performed By: #### I RONS #### [address] [address] Urea nitrogen [Mass/Vol] 13 mg/dL Normal 7-18 [facility] Comment on above: Performed By: #### I RONS #### [address] [address] Calcium [Mass/Vol] 8.7 mg/dL Normal 8.5-10.1 [facility] Comment on above: Performed By: #### I RONS #### [address] [address] Glucose [Mass/Vol] 97 mg/dL Normal 70-99 [facility] Comment on above: Performed By: #### I RONS #### [address] [address] Chloride [Moles/Vol] 105 mmol/L Normal 98-107 [facility] Comment on above: Performed By: #### I RONS #### [address] [address] Potassium [Moles/Vol] 4.2 mmol/L Normal 3.5-5.1 [facility] Comment on above: Performed By: #### I RONS #### [address] [address] Sodium [Moles/Vol] 138 mmol/L Normal 136-145 [facility] Comment on above: Performed By: #### I ROJELIO #### [facility] [address] [place] [address] Hemogram/Diffon 04-20-2019 Abs Immature Grans 0.02 thou/cmm Normal 0.00-0.05 [facility] Comment on above: Performed By: #### C BCD1 #### [facility] [address] [place] [address] Abs Neut (ANC) 4.42 thou/cmm Normal 1.78-5.38 [facility] Comment on above: Performed By: #### C BCD1 #### [place] [address] Abs. Baso 0.03 thou/cmm Normal 0.01-0.08 [facility] Comment on above: Performed By: #### C BCD1 #### [place] [address] Abs. Dare 0.59 thou/cmm Normal 0.30-0.82 [facility] Comment on above: Performed By: #### C BCD1 #### [place] [address] Basophils/100 WBC (Bld) 0.4 % Normal [facility] Comment on above: Performed By: #### C BCD1 #### [place] [address] Eosinophils (Bld) [#/Vol] 0.12 thou/cmm Normal 0.04-0.54 [facility] Comment on above: Performed By: #### C BCD1 #### [facility] [address] [place] [address] Eosinophils/100 WBC (Bld) 1.8 % Normal [facility] Comment on above: Performed By: #### C BCD1 #### [place] [address] Erythrocyte distribution width (RBC) [Ratio] 14.5 % High 11.6-14.4 [facility] Comment on above: Performed By: #### C BCD1 #### [facility] [address] [place], [place] [address] Hematocrit (Bld) [Volume fraction] 38.0 % Low 40.1-51.0 [facility] Comment on above: Performed By: #### C BCD1 #### [facility] [address] [place], [place] [address] Hemoglobin (Bld) [Mass/Vol] 12.6 g/dL Low 13.7-17.5 [facility] Comment on above: Performed By: #### C BCD1 #### [facility] [address] [place] [address] Immature Grans 0.30 % Normal [facility] Comment on above: Performed By: #### C BCD1 #### [facility] [address] [place] [address] Lymphocytes (Bld) [#/Vol] 1.59 thou/cmm Normal 0.84-2.85 [facility] Comment on above: Performed By: #### C BCD1 #### [facility] [address] [place], [place] [address] Lymphocytes/100 WBC (Bld) 23.5 % Normal [facility] Comment on above: Performed By: #### C BCD1 #### [facility] [address] [place] [address] MCH (RBC) [Entitic mass] 30.1 pg Normal 25.7-32.2 [facility] Comment on above: Performed By: #### C BCD1 #### [facility] [address] [place] [address] MCHC (RBC) [Mass/Vol] 33.2 % Normal 32.3-36.5 [facility] Comment on above: Performed By: #### C BCD1 #### [facility] [address] [place], [place] [address] MCV (RBC) [Entitic vol] 90.9 fL Normal 83.2-95.6 [facility] Comment on above: Performed By: #### C BCD1 #### [facility] [address] [place], [place] [address] Monocytes/100 WBC (Bld) 8.7 % Normal [facility] Comment on above: Performed By: #### C BCD1 #### [facility] [address] [place], [place] [address] Platelet mean volume (Bld) [Entitic vol] 9.1 fL Normal 8.7-12.0 [facility] Comment on above: Performed By: #### C BCD1 #### [facility] [address] [place], [place] [address] Platelets (Bld) [#/Vol] 231 thou/cmm Normal 141-365 [facility] Comment on above: Performed By: #### C BCD1 #### [facility] [address] [place] [address] RBC (Bld) [#/Vol] 4.18 mil/cmm Low 4.63-6.08 [facility] Comment on above: Performed By: #### C BCD1 #### [facility] [address] [place] [address] RDW SD 48.9 fl High 36.1-45.8 [facility] Comment on above: Performed By: #### C BCD1 #### [facility] [address] [place] [address] Seg Neutrophil 65.3 % Normal [facility] Comment on above: Performed By: #### C BCD1 #### [facility] [address] [place], [place] [address] WBC (Bld) [#/Vol] 6.77 thou/cmm Normal 4.23-9.07 [facility] Comment on above: Performed By: #### C BCD1 #### [facility] [address] [place], [place] [address] MDRD GFRon 04-20-2019 GFR/1.73 sq M predicted among non-blacks MDRD (S/P/Bld) [Vol rate/Area] mL/min/{1.73_m2} Normal >60mL/min/ 1.73m2 [facility] Comment on above: Result Comment: If t he patient is , multiply the result by 1.210. Performed By: #### G FR #### [facility] [address] [place], [place] [address] Basic Panelon 04-19-2019 Creatinine [Mass/Vol] 0.64 mg/dL Low 0.67-1.17 [facility] Comment on above: Performed By: #### P 8 #### [facility] [address] [place], [place] [address] Anion gap [Moles/Vol] 9 mmol/L Normal 8-16 [facility] Comment on above: Performed By: #### P 8 #### [facility] [address] [place], [place] [address] CO2 [Moles/Vol] 25 mmol/L Normal 21-32 [facility] Comment on above: Performed By: #### P 8 #### [facility] [address] [place], [place] [address] Glucose [Mass/Vol] 112 mg/dL High 70-99 [facility] Comment on above: Performed By: #### P 8 #### [facility] [address] [place], [place] [address] Urea nitrogen [Mass/Vol] 14 mg/dL Normal 7-18 [facility] Comment on above: Performed By: #### P 8 #### [facility] [address] [place], [place] [address] Calcium [Mass/Vol] 8.4 mg/dL Low 8.5-10.1 [facility] Comment on above: Performed By: #### P 8 #### [facility] [address] [place], [place] [address] Chloride [Moles/Vol] 109 mmol/L High 98-107 [facility] Comment on above: Performed By: #### P 8 #### [facility] [address] [place], [place] [address] Potassium [Moles/Vol] 3.9 mmol/L Normal 3.5-5.1 [facility] Comment on above: Performed By: #### P 8 #### [facility] [address] [place], [place] [address] Sodium [Moles/Vol] 139 mmol/L Normal 136-145 [facility] Comment on above: Performed By: #### P 8 #### [facility] [address] [place] [address] Hemogram/Diffon 04-19-2019 Abs Immature Grans 0.05 thou/cmm Normal 0.00-0.05 [facility] Comment on above: Performed By: #### C BCD1 #### [facility] [address] [place] [address] Abs Neut (ANC) 11.22 thou/cmm High 1.78-5.38 [facility] Comment on above: Performed By: #### C BCD1 #### [facility] [address] [place] [address] Abs. Baso 0.03 thou/cmm Normal 0.01-0.08 [facility] Comment on above: Result Comment: Smea r scanned; tech agrees with automated differential Performed By: #### C BCD1 #### [facility] [address] [place] [address] Abs. Dare 0.92 thou/cmm High 0.30-0.82 [facility] Comment on above: Performed By: #### C BCD1 #### [facility] [address] [place] [address] Basophils/100 WBC (Bld) 0.2 % Normal [facility] Comment on above: Performed By: #### C BCD1 #### [place] [address] Eosinophils (Bld) [#/Vol] 0.00 thou/cmm Low 0.04-0.54 [facility] Comment on above: Performed By: #### C BCD1 #### [facility] [address] [place] [address] Eosinophils/100 WBC (Bld) 0.0 % Normal [facility] Comment on above: Performed By: #### C BCD1 #### [facility] [address] [place] [address] Immature Grans 0.40 % Normal [facility] Comment on above: Performed By: #### C BCD1 #### [facility] [address] [place] [id number] Lymphocytes (Bld) [#/Vol] 1.15 thou/cmm Normal 0.84-2.85 [facility] Comment on above: Performed By: #### C BCD1 #### [facility] [address] [place], [place] [address] Lymphocytes/100 WBC (Bld) 8.6 % Normal [facility] Comment on above: Performed By: #### C BCD1 #### [facility] [address] [place], [place] [address] Monocytes/100 WBC (Bld) 6.9 % Normal [facility] Comment on above: Performed By: #### C BCD1 #### [facility] [address] [place] [address] Seg Neutrophil 83.9 % Normal [facility] Comment on above: Performed By: #### C BCD1 #### [facility] [address] [place] [address] Erythrocyte distribution width (RBC) [Ratio] 14.5 % High 11.6-14.4 [facility] Comment on above: Performed By: #### C BCD1 #### [facility] [address] [place] [address] Hematocrit (Bld) [Volume fraction] 39.0 % Low 40.1-51.0 [facility] Comment on above: Performed By: #### C BCD1 #### [facility] [address] [place] [address] Hemoglobin (Bld) [Mass/Vol] 13.0 g/dL Low 13.7-17.5 [facility] Comment on above: Performed By: #### C BCD1 #### [facility] [address] [place] [address] MCH (RBC) [Entitic mass] 30.0 pg Normal 25.7-32.2 [facility] Comment on above: Performed By: #### C BCD1 #### [facility] [address] [place], [place] [address] MCHC (RBC) [Mass/Vol] 33.3 % Normal 32.3-36.5 [facility] Comment on above: Performed By: #### C BCD1 #### [facility] [address] [place] [address] MCV (RBC) [Entitic vol] 89.9 fL Normal 83.2-95.6 [facility] Comment on above: Performed By: #### C BCD1 #### [facility] [address] [place] [address] Platelet mean volume (Bld) [Entitic vol] 9.3 fL Normal 8.7-12.0 [facility] Comment on above: Performed By: #### C BCD1 #### [facility] [address] [place] [address] Platelets (Bld) [#/Vol] 258 thou/cmm Normal 141-365 [facility] Comment on above: Performed By: #### C BCD1 #### [place] [address] RBC (Bld) [#/Vol] 4.34 mil/cmm Low 4.63-6.08 [facility] Comment on above: Performed By: #### C BCD1 #### [place] [address] RDW SD 47.3 fl High 36.1-45.8 [facility] Comment on above: Performed By: #### C BCD1 #### [place] [address] WBC (Bld) [#/Vol] 13.37 thou/cmm High 4.23-9.07 [facility] Comment on above: Performed By: #### C BCD1 #### [place] [address] Surgical Tissue Examon 04-18 Surgical Tissue Exam Test performed at [place] [address] NAME: TARA ARELLANO REQUESTING: GABBI WILLARD MD FINAL DIAGNOSIS: PARTIAL GASTRECTOMY - REACTIVE GASTROPATHY. OPERATIVE PROCEDURE: Diagnostic laparoscopy, Laparoscopic partial gastrectomy CLINICAL INFORMATION: S/P gastric bypass [Z98.84], Continuous abdominal pain [R10.9] GROSS DESCRIPTION: Partial gastrectomy Received in formalin labeled partial gastrectomy is a segment of stomach measuring 3.2 x 1.4 x 1.4 cm. A staple line is present and removed. The serosal surface is pink and glistening. The wall measures 0.4 cm in thickness. The mucosal surface is torres-pink. The specimen is serially sectioned and totally submitted in formalin in three cassettes. KVB:chris VALLECILLO M.D. (Electronic signature on file) Signed out: 04/25/2019 16:43 PRINTED: 04/25/2019 Page 1 of 1 Normal [facility] Comment on above: Performed By: #### I RONS #### [place] [address] Ferritinon 02-07-2019 Ferritin [Mass/Vol] 858.30 ng/mL High 26.00-38 8. 00 [facility] Comment on above: Performed By: #### F ERR #### [place] [address] Oncology Hemogram/Diffon Abs. Baso 0.02 thou/cmm Normal 0.00-0.08 [facility] Comment on above: Result Comment: Test ing performed at: [facility], [address] [place] [address] Performed By: #### O CBCD #### [place] [address] Abs. Dare 0.39 thou/cmm Normal 0.19-0.80 [facility] Comment on above: Performed By: #### O CBCD #### [place] [address] Abs. Neut (ANC) 2.68 thou/cmm Normal 1.35-7.21 [facility] Comment on above: Performed By: #### O CBCD #### [place] [address] Basophils/100 WBC (Bld) 0.4 % Normal [facility] Comment on above: Performed By: #### O CBCD #### [address] [address] Eosinophils (Bld) [#/Vol] 0.20 thou/cmm Normal 0.00-0.36 [facility] Comment on above: Performed By: #### O CBCD #### [facility] [address] [place] [address] Eosinophils/100 WBC (Bld) 4.3 % Normal [facility] Comment on above: Performed By: #### O CBCD #### [place] [address] Erythrocyte distribution width (RBC) [Ratio] 19.7 % High 11.8-14.5 [facility] Comment on above: Performed By: #### O CBCD #### [place] [address] Hematocrit (Bld) [Volume fraction] 36.5 % Low 39.6-50.7 [facility] Comment on above: Performed By: #### O CBCD #### [place] [address] Hemoglobin (Bld) [Mass/Vol] 12.2 g/dL Low 13.2-17.4 [facility] Comment on above: Performed By: #### O CBCD #### [place] [address] Lymphocytes (Bld) [#/Vol] 1.41 thou/cmm Normal 0.68-2.93 [facility] Comment on above: Performed By: #### O CBCD #### [place] [address] Lymphocytes/100 WBC (Bld) 30.0 % Normal [facility] Comment on above: Performed By: #### O CBCD #### [place] [address] MCH (RBC) [Entitic mass] 26.9 pg Low 27.4-32.8 [facility] Comment on above: Performed By: #### O CBCD #### [place] [address] MCHC (RBC) [Mass/Vol] 33.4 % Normal 31.9-35.6 [facility] Comment on above: Performed By: #### O CBCD #### [facility] [address] [place] [address] MCV (RBC) [Entitic vol] 80.4 fL Low 81.8-95.6 [facility] Comment on above: Performed By: #### O CBCD #### [facility] [address] [place] [address] Monocytes/100 WBC (Bld) 8.2 % Normal [facility] Comment on above: Performed By: #### O CBCD #### [facility] [address] [place] [address] Platelet mean volume (Bld) [Entitic vol] 8.7 fL Low 8.8-12.1 [facility] Comment on above: Performed By: #### O CBCD #### [place] [address] Platelets (Bld) [#/Vol] 254 thou/cmm Normal 150-370 [facility] Comment on above: Performed By: #### O CBCD #### [place] [address] RBC (Bld) [#/Vol] 4.54 mil/cmm Normal 4.22-5.80 [facility] Comment on above: Performed By: #### O CBCD #### [place] [address] Seg Neutrophil 57.1 % Normal [facility] Comment on above: Performed By: #### O CBCD #### [place] [address] WBC (Bld) [#/Vol] 4.7 thou/cmm Normal 4.4-9.7 [facility] Comment on above: Performed By: #### O CBCD #### [facility] [address] [place] [address] Ferritinon 12-23-2018 Ferritin [Mass/Vol] 9.70 ng/mL Low 26.00-38 8. 00 [facility] Comment on above: Performed By: #### F ERR #### [facility] [address] [place] [address] Hemogramon 12-23-2018 Erythrocyte distribution width (RBC) [Ratio] 18.1 % High 11.6-14.4 [facility] Comment on above: Performed By: #### C BC1 #### [facility] [address] [place] [address] Hematocrit (Bld) [Volume fraction] 32.6 % Low 40.1-51.0 [facility] Comment on above: Performed By: #### C BC1 #### [facility] [address] [place] [address] Hemoglobin (Bld) [Mass/Vol] 10.1 g/dL Low 13.7-17.5 [facility] Comment on above: Performed By: #### C BC1 #### [place] [address] MCH (RBC) [Entitic mass] 24.3 pg Low 25.7-32.2 [facility] Comment on above: Performed By: #### C BC1 #### [facility] [address] [place] [address] MCHC (RBC) [Mass/Vol] 31.0 % Low 32.3-36.5 [facility] Comment on above: Performed By: #### C BC1 #### [facility] [address] [place] [address] MCV (RBC) [Entitic vol] 78.4 fL Low 83.2-95.6 [facility] Comment on above: Performed By: #### C BC1 #### [facility] [address] [place] [address] Platelet mean volume (Bld) [Entitic vol] 9.1 fL Normal 8.7-12.0 [facility] Comment on above: Performed By: #### C BC1 #### [facility] [address] [place] [address] Platelets (Bld) [#/Vol] 261 thou/cmm Normal 141-365 [facility] Comment on above: Performed By: #### C BC1 #### [facility] [address] [place] [address] RBC (Bld) [#/Vol] 4.16 mil/cmm Low 4.63-6.08 [facility] Comment on above: Performed By: #### C BC1 #### [facility] [address] [place] [address] RDW SD 51.1 fl High 36.1-45.8 [facility] Comment on above: Performed By: #### C BC1 #### [facility] [address] [place] [address] WBC (Bld) [#/Vol] 3.48 thou/cmm Low 4.23-9.07 [facility] Comment on above: Performed By: #### C BC1 #### [facility] [address] [place] [address] Iron % Saturationon 12-24-19 19 Iron % Saturation 12 % Low 20-55 [facility] Comment on above: Performed By: #### I RONS #### [facility] [address] [place] [address] Iron Binding Cap. 425 ug/dL Normal 250-450 [facility] Comment on above: Performed By: #### I RONS #### [place] [address] Iron Serum 53 ug/dL Low 65-175 [facility] Comment on above: Performed By: #### I RONS #### [place] [address] Vitamin B12on 12-23-2018 Cobalamin (Vitamin B12) [Mass/Vol] 589 pg/mL Normal 193-986 [facility] Comment on above: Performed By: #### B 12 #### [facility] [address] [place] [address] Lab Report: Basic Metabolic Profile (BMP)on 09-08-2016 Anion gap 7 mmol/L Invalid Interpretation Code 09-22 [facility] Work Phone: Anion gap molar conc 7 mmol/L 09-[address] [facility] Work Phone: BUN/Creatinine Ratio 11.4 RATIO 10-20 [employer] Work Phone: [phone] Calcium 8.7 mg/dL 8.5-10.1 [employer] Work Phone: [phone] Chloride 110 mmol/L High 98-107 [employer] Work Phone: [phone] CO2 25.0 mmol/L Invalid Interpretation Code 21.0-32.0 [employer] Work Phone: [phone] CO2 ppres (BldV) 25.0 mmol/L 21.0-32.0 [employer] Work Phone: [phone] Creatinine 0.79 mg/dL 0.70-1.30 [employer] Work Phone: [phone] eGFR (non-black) 128 mL/min/{1.73_m2} Invalid Interpretation Code >60 [employer] Work Phone: [phone] eGFR (non-black) 106 mL/min/{1.73_m2} >60 [facility] Work Phone: [phone] GFR - AA 128 mL/min >60 [employer] Work Phone: [phone] Glucose 97 mg/dL Invalid Interpretation Code 70-110 [employer] Work Phone: [phone] Glucose mass conc 97 mg/dL 70-110 [employer] Work Phone: [phone] Potassium 3.9 mmol/L 3.5-5.1 [employer] Work Phone: [phone] Sodium 142 mmol/L 136-145 [employer] Work Phone: [phone] Urea nitrogen 9 mg/dL 7-18 [employer] Work Phone: [phone] Lab Report: CBC-Complete Blo od Cnt No Diffon 09-08-2016 Erythrocyte distribution width Ratio (RBC) 44.8 fL High 35.1-43.9 [employer] Work Phone: [phone] Erythrocyte distribution width Ratio (RBC) 13.5 % 11.6-14.6 [employer] Work Phone: [phone] Erythrocytes (RBC) 3.95 10*6/uL Low 4.6-6.[address] [facility] Work Phone: [phone] Hematocrit (HCT) 36.1 % Low 40-54 [facility] Work Phone: [phone] Hematocrit Volume Fraction (Bld) 36.1 % Low 40-54 [facility] Work Phone: [phone] Hemoglobin (HGB) 12.3 g/dL Low 13.0-16.5 [facility] Work Phone: [phone] MCH 31.1 pg Invalid Interpretation Code 27.0-32.0 [facility] Work Phone: [phone] MCH Entitic mass (RBC) 31.1 pg 27.0-32.0 [facility] Work Phone: [phone] MCHC 34.1 G/GL Invalid Interpretation Code 32-36 [facility] Work Phone: [phone] MCHC mass conc (RBC) 34.1 G/GL 32-[address] [facility] Work Phone: [phone] MCV 91.4 fL Invalid Interpretation Code 80-94 [facility] Work Phone: [phone] MCV Entitic volume (RBC) 91.4 fL 80-94 [facility] Work Phone: [phone] Platelet mean volume Entitic volume (Bld) 8.5 fL 6.2-12.0 [facility] Work Phone: [phone] Platelets 246 10*3/mm3 Invalid Interpretation Code 150-450 [facility] Work Phone: [phone] Platelets #/vol (Bld) 246 10*3/mm3 150-450 [facility] Work Phone: [phone] PMV by Kym 8.5 fL Invalid Interpretation Code 6.2-12.0 [facility] Work Phone: [phone] RBC #/vol (Bld) 3.95 10*6/uL Low 4.6-6.2 [facility] Work Phone: [phone] RDW-CA 13.5 % Invalid Interpretation Code 11.6-14.6 [facility] Work [phone] red blood cell distribution width, size density 44.8 fL High 35.1-43.9 [facility] Work Phone: [phone] WBC #/vol (Bld) 3.6 10*3/uL Low 4.4-11.0 [facility] Work Phone: [phone] WBC (Leukocytes) 3.6 10*3/uL Low 4.4-11.0 [employer] Work Phone: [phone] Lab Report: Partial Thrombop last Timeon 09-08-2016 aPTT 36.5 s High 24.1-36.2 [facility] Work Phone: [phone] Lab Report: Prothrombin Time w/INRon 09-08-2016 Coagulation tissue factor induced in platelet poor plasma 12.7 s 11.7-14.9 [facility] Work Phone: [phone] INR Coag RelTime (PPP) 1.0 {INR} [facility] [employer] Work Phone: [phone] INR in blood by coagulation 1.0 {INR} Invalid Interpretation Code [facility] Work Phone: [phone] Visiton 08-20-2016 Dietary management education, guidance, and counseling (procedure) yes Invalid Interpretation Code [employer] Work Phone: [phone] Documentation of current medications (procedure) Done Invalid Interpretation Code [facility] [email or web address] Phone: [phone] Protein mass conc Done [employer] Work Phone: [phone] Tobacco smoking status NHIS Former smoker [employer] Work Phone: [phone] Tobacco use HS Former smoker Invalid Interpretation Code [facility] Work Phone: [phone] Replaced Document: [employer] E CG Observationson 08-20-2016 EKG QRS axis 15 deg [employer] Work Phone: [phone] electrocardiogram interpretation Sinus Rhythm WITHIN NORMAL LIMITS Invalid Interpretation Code [employer] Work Phone: [phone] GE use only - for [employer] import when terms are not otherwise specified 391 ms Invalid Interpretation Code [facility] [email or web address] Phone: [phone] Interpretation Sinus Rhythm WITHIN NORMAL LIMITS [employer] Work Phone: P [place] 56 deg [facility] Work Phone: P wave axis, electrocardiogram 56 deg Invalid Interpretation Code [employer] Work Phone: VA Interval 152 ms [facility] [employer] Work Phone: VA interval, electrocardiogram 152 ms Invalid Interpretation Code [employer] Work Phone: Pulse (Heart Rate) 71 /min Invalid Interpretation Code [employer] Work Phone: QRS axis, electrocardiogram 15 deg Invalid Interpretation Code [employer] Work Phone: QRS Duration 94 ms [facility] [employer] Work Phone: QRS duration, electrocardiogram 94 ms Invalid Interpretation Code [employer] Work Phone: QT Interval new path ms [employer] Work Phone: QT interval, electrocardiogram new path ms Invalid Interpretation Code [employer] Work Phone: QTc Beard 391 ms [employer] Work Phone: T [place] 46 deg [employer] Work Phone: T wave axis, electrocardiogram 46 deg Invalid Interpretation Code [employer] Work Phone: [phone] Clinical Lists Update: [facility] 08-19-2016 Left ventricular Ejection fraction 61 % [employer] Work Phone: [phone] Clinical Lists Update: [facility] 06-18-2016 Alanine aminotransferase (ALT) 23 U/L [employer] Work Phone: [phone] Alkaline phosphatase (ALP) 63 U/L Invalid Interpretation Code [facility] Work Phone: [phone] ALP enzyme act/vol (Bld) 63 U/L [facility] Work Phone: Aspartate aminotransferase (AST) 23 U/L [facility] Work Phone: Cholesterol 222 mg/dL High [facility] Work Phone: HDL Cholesterol 34 mg/dL Low [facility] Work Phone: LDL Cholesterol 139 mg/dL High [facility] Work Phone: Triglyceride 246 mg/dL [facility] Work Phone: [phone] very low density lipoproteins 49 mg/dL [facility] Work Phone: [phone] Vital Signs Date Time Vital Sign Value Performing Clinician Facility 09-09-2024 10:16-0400 Body mass index (BMI) [Ratio] 26.39 kg/m2 Teri Gross MD Work Phone: [facility] [place] 09-09-2024 10:16-0400 Body temperature 97 [degF] Teri Gross MD Work Phone: [facility] [place] 09-09-2024 10:16-0400 Body weight 81.65 kg Teri Gross MD Work Phone: [facility] [place] 09-09-2024 10:16-0400 Diastolic blood pressure 72 mm[Hg] Teri Gross MD Work Phone: [facility] [place] 09-09-2024 10:16-0400 Heart rate 82 /min Teri Gross MD Work Phone: [facility] [place] 09-09-2024 10:16-0400 Respiratory rate 20 /min Teri Gross MD Work Phone: [facility] [place] 09-09-2024 10:16-0400 SaO2% (BldA) [Mass fraction] 97 % Teri Gross MD Work Phone: [facility] [place] 09-09-2024 10:16-0400 Systolic blood pressure 128 mm[Hg] Teri Gross MD Work Phone: [facility] [place] 08-18-2024 11:19-0400 Body mass index (BMI) [Ratio] 27.12 kg/m2 Jaimie Jett SOLAR SALES CONSULTANT.COMPOSITION FLOOR SETTER Work Phone: [facility] [place] 08-18-2024 11:19-0400 Body temperature 97.59 [degF] Jaimie Jett SOLAR SALES CONSULTANT.COMPOSITION FLOOR SETTER Work Phone: [facility] [place] 08-18-2024 11:19-0400 Body weight 83.92 kg Jaimie Suppan SOLAR SALES CONSULTANT.COMPOSITION FLOOR SETTER Work Phone: [facility] [place] 08-18-2024 11:19-0400 Diastolic blood pressure 72 mm[Hg] Jaimie Suppan SOLAR SALES CONSULTANT.COMPOSITION FLOOR SETTER Work Phone: [facility] [place] 08-18-2024 11:19-0400 Heart rate 76 /min Jaimie Suppan SOLAR SALES CONSULTANT.COMPOSITION FLOOR SETTER Work Phone: [facility] [place] 08-18-2024 11:19-0400 SaO2% (BldA) [Mass fraction] 98 % Jaimie Suppan SOLAR SALES CONSULTANT.COMPOSITION FLOOR SETTER Work Phone: [facility] [place] 08-18-2024 11:19-0400 Systolic blood pressure 128 mm[Hg] Jaimie Suppan SOLAR SALES CONSULTANT.COMPOSITION FLOOR SETTER Work Phone: [facility] [place] 07-14-2024 09:34-0500 Body mass index (BMI) [Ratio] 27.12 kg/m2 Teri Gross MD Work Phone: [facility] [place] 07-14-2024 09:34-0500 Body weight 83.92 kg Teri Gross MD Work Phone: [facility] [place] 07-14-2024 09:34-0500 Diastolic blood pressure 70 mm[Hg] Teri Gross MD Work Phone: [facility] [place] 07-14-2024 09:34-0500 Heart rate 81 /min Teri Gross MD Work Phone: [facility] [place] 07-14-2024 09:34-0500 Respiratory rate 16 /min Teri Gross MD Work Phone: [facility] [place] 07-14-2024 09:34-0500 SaO2% (BldA) [Mass fraction] 98 % Teri Gross MD Work Phone: [facility] [place] 07-14-2024 09:34-0500 Systolic blood pressure 132 mm[Hg] Teri Gross MD Work Phone: [facility] [place] 07-05-2024 11:59-0500 Body mass index (BMI) [Ratio] 26.98 kg/m2 Jaimie Jett APRN.COMPOSITION FLOOR SETTER Work Phone: [facility] [place] 07-05-2024 11:59-0500 Body temperature 97.81 [degF] Jaimie Jett APRN.COMPOSITION FLOOR SETTER Work Phone: [facility] [place] 07-05-2024 11:59-0500 Body weight 83.46 kg Jaimie Jett APRN.COMPOSITION FLOOR SETTER Work Phone: [facility] [place] 07-05-2024 11:59-0500 Diastolic blood pressure 54 mm[Hg] Jaimie Jett APRN.COMPOSITION FLOOR SETTER Work Phone: [facility] [place] 07-05-2024 11:59-0500 Heart rate 88 /min Jaimie Jett APRN.COMPOSITION FLOOR SETTER Work Phone: [facility] [place] 07-05-2024 11:59-0500 SaO2% (BldA) [Mass fraction] 99 % Jaimie Jett APRN.COMPOSITION FLOOR SETTER Work Phone: [facility] [place] 07-05-2024 11:59-0500 Systolic blood pressure 110 mm[Hg] Jaimie Jett APRN.COMPOSITION FLOOR SETTER Work Phone: [facility] [place] 07-01-2024 13:30-0500 Body mass index (BMI) [Ratio] 25.66 kg/m2 Lew Bird APRN.COMPOSITION FLOOR SETTER Work Phone: [facility] [place] 07-01-2024 13:30-0500 Body weight 79.38 kg Lew Bird APRN.COMPOSITION FLOOR SETTER Work Phone: [facility] [place] 07-01-2024 13:30-0500 Diastolic blood pressure 71 mm[Hg] Lew Bird APRN.COMPOSITION FLOOR SETTER Work Phone: [facility] [place] 07-01-2024 13:30-0500 Heart rate 82 /min Lew Bird APRN.COMPOSITION FLOOR SETTER Work Phone: [facility] [place] 07-01-2024 13:30-0500 SaO2% (BldA) [Mass fraction] 98 % Lew Bird APRN.COMPOSITION FLOOR SETTER Work Phone: [facility] [place] 07-01-2024 13:30-0500 Systolic blood pressure 120 mm[Hg] Lew Bird SOLAR SALES CONSULTANT.COMPOSITION FLOOR SETTER Work Phone: [facility] [place] 06-21-2024 15:35-0500 Body mass index (BMI) [Ratio] 26.68 kg/m2 Jaimie Suppan SOLAR SALES CONSULTANT.COMPOSITION FLOOR SETTER Work Phone: [facility] [place] 06-21-2024 15:35-0500 Body temperature 101.41 [degF] Jaimie Suppan SOLAR SALES CONSULTANT.COMPOSITION FLOOR SETTER Work Phone: [facility] [place] 06-21-2024 15:35-0500 Body weight 82.56 kg Jaimie Suppan SOLAR SALES CONSULTANT.COMPOSITION FLOOR SETTER Work Phone: [facility] [place] 06-21-2024 15:35-0500 Diastolic blood pressure 72 mm[Hg] Jaimie Suppan SOLAR SALES CONSULTANT.COMPOSITION FLOOR SETTER Work Phone: [facility] [place] 06-21-2024 15:35-0500 Heart rate 105 /min Jaimie Suppan SOLAR SALES CONSULTANT.COMPOSITION FLOOR SETTER Work Phone: [facility] [place] 06-21-2024 15:35-0500 Respiratory rate 14 /min Jaimie Suppan SOLAR SALES CONSULTANT.COMPOSITION FLOOR SETTER Work Phone: [facility] [place] 06-21-2024 15:35-0500 SaO2% (BldA) [Mass fraction] 95 % Jaimie Suppan SOLAR SALES CONSULTANT.COMPOSITION FLOOR SETTER Work Phone: [facility] [place] Comment on above: on room air 06-21-2024 15:35-0500 Systolic blood pressure 120 mm[Hg] Jaimie Suppan SOLAR SALES CONSULTANT.COMPOSITION FLOOR SETTER Work Phone: [facility] [place] 06-15-2024 09:41-0500 Body height 175.9 cm Andry Jean-Baptiste MD Work Phone: [facility] [place] 06-15-2024 09:41-0500 Body mass index (BMI) [Ratio] 26.39 kg/m2 Andry Jean-Baptiste MD Work Phone: [facility] [place] 06-15-2024 09:41-0500 Body weight 81.65 kg Andry Jean-Baptiste MD Work Phone: [facility] [place] 06-15-2024 09:41-0500 Diastolic blood pressure 68 mm[Hg] Andry Jean-Baptiste MD Work Phone: [facility] [place] 06-15-2024 09:41-0500 Heart rate 73 /min Andry Jean-Baptiste MD Work Phone: [facility] [place] 06-15-2024 09:41-0500 SaO2% (BldA) [Mass fraction] 97 % Andry Jean-Baptiste MD Work Phone: [facility] [place] 06-15-2024 09:41-0500 Systolic blood pressure 124 mm[Hg] Andry Jean-Baptiste MD Work Phone: [facility] [place] 04-06-2024 12:07-0500 Diastolic blood pressure 62 mm[Hg] Andry Jean-Baptiste MD Work Phone: [facility] [place] 04-06-2024 12:07-0500 Systolic blood pressure 122 mm[Hg] Andry Jean-Baptiste MD Work Phone: [facility] [place] 04-06-2024 11:45-0500 Body mass index (BMI) [Ratio] 26.43 kg/m2 Andry Jean-Baptiste MD Work Phone: [facility] [place] 04-06-2024 11:45-0500 Body weight 81.19 kg Andry Jean-Baptiste MD Work Phone: [facility] [place] 04-06-2024 11:45-0500 Heart rate 72 /min Andry Jean-Baptiste MD Work Phone: [facility] [place] 04-06-2024 11:45-0500 Respiratory rate 16 /min Andry Jean-Baptiste MD Work Phone: [facility] [place] 12-08-2023 09:18-0400 Body mass index (BMI) [Ratio] 26.29 kg/m2 Irma Perez PA-C Work Phone: [facility] [place] 12-08-2023 09:18-0400 Body temperature 97.3 [degF] Irma Perez PA-C Work Phone: [facility] [place] 12-08-2023 09:18-0400 Body weight 80.74 kg Irmajason Perez PA-C Work Phone: [facility] [place] 12-08-2023 09:18-0400 Diastolic blood pressure 62 mm[Hg] Irmajason Perez PA-C Work Phone: [facility] [place] 12-08-2023 09:18-0400 Heart rate 77 /min Irma Perez PA-C Work Phone: [facility] [place] 12-08-2023 09:18-0400 Respiratory rate 16 /min Irmajason Perez PA-C Work Phone: [facility] [place] 12-08-2023 09:18-0400 SaO2% (BldA) [Mass fraction] 94 % Irma Perez PA-C Work Phone: [facility] [place] 12-08-2023 09:18-0400 Systolic blood pressure 102 mm[Hg] Irma Perez PA-C Work Phone: [facility] [place] 10-14-2023 09:44-0400 Diastolic blood pressure 70 mm[Hg] Maria De Jesus Radha PA-C Work Phone: [facility] [place] 10-14-2023 09:44-0400 Heart rate 68 /min Maria De Jesus Radha PA-C Work Phone: [facility] [place] 10-14-2023 09:44-0400 Respiratory rate 14 /min Maria De Jesus Radha PA-C Work Phone: [facility] [place] 10-14-2023 09:44-0400 SaO2% (BldA) [Mass fraction] 98 % Maria De Jesus Radha PA-C Work Phone: [facility] [place] 10-14-2023 09:44-0400 Systolic blood pressure 122 mm[Hg] Maria De Jesus Radha PA-C Work Phone: [facility] [place] 10-02-2023 11:50-0400 Body mass index (BMI) [Ratio] 25.99 kg/m2 Andry Jean-Baptiste MD Work Phone: [facility] [place] 10-02-2023 11:50-0400 Body temperature 97 [degF] Andry Jean-Baptiste MD Work Phone: [facility] [place] 10-02-2023 11:50-0400 Body weight 79.83 kg Andry Jean-Baptiste MD Work Phone: [facility] [place] 10-02-2023 11:50-0400 Diastolic blood pressure 72 mm[Hg] Andry Jean-Baptiste MD Work Phone: [facility] [place] 10-02-2023 11:50-0400 Heart rate 79 /min Andry Jean-Baptiste MD Work Phone: [facility] [place] 10-02-2023 11:50-0400 SaO2% (BldA) [Mass fraction] 97 % Anrdy Jean-Baptiste MD Work Phone: [facility] [place] 10-02-2023 11:50-0400 Systolic blood pressure 120 mm[Hg] Andry Jean-Baptiste MD Work Phone: [facility] [place] 09-20-2023 16:00-0400 Body temperature 98.9 [degF] [facility] 09-20-2023 16:00-0400 Diastolic blood pressure 45 mm[Hg] [facility] 09-20-2023 16:00-0400 Heart rate 103 /min [facility] 09-20-2023 16:00-0400 Inhaled oxygen flow rate 3 L/min [facility] 09-20-2023 16:00-0400 Respiratory rate 25 /min [facility] 09-20-2023 16:00-0400 SaO2% (BldA) [Mass fraction] 94 % [facility] 09-20-2023 16:00-0400 Systolic blood pressure 121 mm[Hg] [facility] 09-20-2023 13:02-0400 Body height 180.34 cm [facility] 09-20-2023 13:02-0400 Body mass index (BMI) [Ratio] 25.3 kg/m2 [facility] 09-20-2023 13:02-0400 Body weight 82.46 kg [facility] 09-18-2023 15:09-0400 Body mass index (BMI) [Ratio] 27.17 kg/m2 Lew Bird APRN.COMPOSITION FLOOR SETTER Work Phone: [facility] [place] 09-18-2023 15:09-0400 Body temperature 100.71 [degF] Lew Bird APRN.COMPOSITION FLOOR SETTER Work Phone: [facility] [place] 09-18-2023 15:09-0400 Body weight 83.46 kg Lew Bird APRN.COMPOSITION FLOOR SETTER Work Phone: [facility] [place] 09-18-2023 15:09-0400 Diastolic blood pressure 60 mm[Hg] Lew Bird SOLAR SALES CONSULTANT.COMPOSITION FLOOR SETTER Work Phone: [facility] [place] 09-18-2023 15:09-0400 Respiratory rate 16 /min Lew Bird APRN.COMPOSITION FLOOR SETTER Work Phone: [facility] [place] 09-18-2023 15:09-0400 SaO2% (BldA) [Mass fraction] 95 % Lew Bird SOLAR SALES CONSULTANT.COMPOSITION FLOOR SETTER Work Phone: [facility] [place] 09-18-2023 15:09-0400 Systolic blood pressure 148 mm[Hg] Lew Bird SOLAR SALES CONSULTANT.COMPOSITION FLOOR SETTER Work Phone: [facility] [place] 07-23-2023 13:23-0400 Body weight 85.82 kg Teri Gross MD Work Phone: [facility] [place] 07-23-2023 13:23-0400 Diastolic blood pressure 60 mm[Hg] Teri Gross MD Work Phone: [facility] [place] 07-23-2023 13:23-0400 Heart rate 77 /min Teri Gross MD Work Phone: [facility] [place] 07-23-2023 13:23-0400 Respiratory rate 18 /min Teri Gross MD Work Phone: [facility] [place] 07-23-2023 13:23-0400 SaO2% (BldA) [Mass fraction] 94 % Teri Gross MD Work Phone: [facility] [place] 07-23-2023 13:23-0400 Systolic blood pressure 120 mm[Hg] Teri Gross MD Work Phone: [facility] [place] 05-18-2023 14:43-0500 Diastolic blood pressure 70 mm[Hg] [facility] 05-18-2023 14:43-0500 Heart rate 82 /min [facility] 05-18-2023 14:43-0500 Respiratory rate 12 /min [facility] 05-18-2023 14:43-0500 SaO2% (BldA) [Mass fraction] 93 % [facility] 05-18-2023 14:43-0500 Systolic blood pressure 147 mm[Hg] [facility] 05-18-2023 12:11-0500 Body height 177.8 cm [facility] 05-18-2023 12:11-0500 Body mass index (BMI) [Ratio] 25.9 kg/m2 [facility] 05-18-2023 12:11-0500 Body temperature 96.7 [degF] [facility] 05-18-2023 12:11-0500 Body weight 82.1 kg [facility] 04-28-2023 11:27-0500 Body height 176.5 cm Andry Jean-Baptiste MD Work Phone: [facility] [place] 04-28-2023 11:27-0500 Body weight 83.92 kg Andry Jean-Baptiste MD Work Phone: [facility] [place] 04-28-2023 11:27-0500 Diastolic blood pressure 74 mm[Hg] Andry Jean-Baptiste MD Work Phone: [facility] [place] 04-28-2023 11:27-0500 Heart rate 81 /min Andry Jean-Baptiste MD Work Phone: [facility] [place] 04-28-2023 11:27-0500 Respiratory rate 18 /min Andry Jean-Baptiste MD Work Phone: [facility] [place] 04-28-2023 11:27-0500 SaO2% (BldA) [Mass fraction] 96 % Andry Jean-Baptiste MD Work Phone: [facility] [place] 04-28-2023 11:27-0500 Systolic blood pressure 132 mm[Hg] Andry Jean-Baptiste MD Work Phone: [facility] [place] 04-16-2023 15:10-0500 Body height 176.1 cm Teri Gross MD Work Phone: [facility] [place] 04-16-2023 15:10-0500 Body weight 83.92 kg Teri Gross MD Work Phone: [facility] [place] 04-16-2023 15:10-0500 Diastolic blood pressure 68 mm[Hg] Teri Gross MD Work Phone: [facility] [place] 04-16-2023 15:10-0500 Heart rate 92 /min Teri Gross MD Work Phone: [facility] [place] 04-16-2023 15:10-0500 Respiratory rate 16 /min Teri Gross MD Work Phone: [facility] [place] 04-16-2023 15:10-0500 SaO2% (BldA) [Mass fraction] 96 % Teri Gross MD Work Phone: [facility] [place] 04-16-2023 15:10-0500 Systolic blood pressure 122 mm[Hg] Teri Gross MD Work Phone: [facility] [place] 04-14-2023 07:37-0500 Body weight 85.28 kg Lew Bird SOLAR SALES CONSULTANT.COMPOSITION FLOOR SETTER Work Phone: [facility] [place] 04-14-2023 07:37-0500 Diastolic blood pressure 70 mm[Hg] Lew Bird SOLAR SALES CONSULTANT.COMPOSITION FLOOR SETTER Work Phone: [facility] [place] 04-14-2023 07:37-0500 Heart rate 92 /min Lew Bird SOLAR SALES CONSULTANT.COMPOSITION FLOOR SETTER Work Phone: [facility] [place] 04-14-2023 07:37-0500 Respiratory rate 16 /min Lew Bird SOLAR SALES CONSULTANT.COMPOSITION FLOOR SETTER Work Phone: [facility] [place] 04-14-2023 07:37-0500 Systolic blood pressure 126 mm[Hg] Lew Bird SOLAR SALES CONSULTANT.COMPOSITION FLOOR SETTER Work Phone: [facility] [place] 03-20-2023 12:33-0500 Heart rate 83 /min [facility] 03-20-2023 12:33-0500 Respiratory rate 16 /min [facility] 03-20-2023 12:33-0500 SaO2% (BldA) [Mass fraction] 95 % [facility] 03-20-2023 11:35-0500 Body height 177.8 cm [facility] 03-20-2023 11:35-0500 Body mass index (BMI) [Ratio] 26.9 kg/m2 [facility] 03-20-2023 11:35-0500 Body temperature 96.2 [degF] [facility] 03-20-2023 11:35-0500 Body weight 84.91 kg [facility] 03-20-2023 11:35-0500 Diastolic blood pressure 63 mm[Hg] [facility] 03-20-2023 11:35-0500 Systolic blood pressure 139 mm[Hg] [facility] 02-20-2023 14:04-0400 Body weight 84.37 kg Lew Bird SOLAR SALES CONSULTANT.COMPOSITION FLOOR SETTER Work Phone: [facility] [place] 02-20-2023 14:04-0400 Diastolic blood pressure 78 mm[Hg] Lew Bird SOLAR SALES CONSULTANT.COMPOSITION FLOOR SETTER Work Phone: [facility] [place] 02-20-2023 14:04-0400 Heart rate 72 /min Lew Bird SOLAR SALES CONSULTANT.COMPOSITION FLOOR SETTER Work Phone: [facility] [place] 02-20-2023 14:04-0400 Respiratory rate 16 /min Lew Bird APRN.COMPOSITION FLOOR SETTER Work Phone: [facility] [place] 02-20-2023 14:04-0400 SaO2% (BldA) [Mass fraction] 97 % Lew Bird SOLAR SALES CONSULTANT.COMPOSITION FLOOR SETTER Work Phone: [facility] [place] 02-20-2023 14:04-0400 Systolic blood pressure 122 mm[Hg] Lew Bird SOLAR SALES CONSULTANT.COMPOSITION FLOOR SETTER Work Phone: [facility] [place] 02-16-2023 14:20-0400 Body temperature 97.11 [degF] Eulalia Wells SOLAR SALES CONSULTANT.COMPOSITION FLOOR SETTER Work Phone: [facility] [place] 02-16-2023 14:20-0400 Body weight 83.19 kg Eulalia Wells SOLAR SALES CONSULTANT.COMPOSITION FLOOR SETTER Work Phone: [facility] [place] 02-16-2023 14:20-0400 Diastolic blood pressure 72 mm[Hg] Eulalia Wells SOLAR SALES CONSULTANT.COMPOSITION FLOOR SETTER Work Phone: [facility] [place] 02-16-2023 14:20-0400 Heart rate 88 /min Eulalia Wells SOLAR SALES CONSULTANT.COMPOSITION FLOOR SETTER Work Phone: [facility] [place] 02-16-2023 14:20-0400 Respiratory rate 16 /min Eulalia Wells SOLAR SALES CONSULTANT.COMPOSITION FLOOR SETTER Work Phone: [facility] [place] 02-16-2023 14:20-0400 SaO2% (BldA) [Mass fraction] 96 % Eulalia Wells SOLAR SALES CONSULTANT.COMPOSITION FLOOR SETTER Work Phone: [facility] [place] 02-16-2023 14:20-0400 Systolic blood pressure 110 mm[Hg] Eulalia Wells SOLAR SALES CONSULTANT.COMPOSITION FLOOR SETTER Work Phone: [facility] [place] 02-09-2023 18:00-0400 Diastolic blood pressure 64 mm[Hg] [facility] 02-09-2023 18:00-0400 Heart rate 89 /min [facility] 02-09-2023 18:00-0400 Respiratory rate 22 /min [facility] 02-09-2023 18:00-0400 SaO2% (BldA) [Mass fraction] 93 % [facility] 02-09-2023 18:00-0400 Systolic blood pressure 128 mm[Hg] [facility] 02-09-2023 12:35-0400 Body temperature 97.9 [degF] [facility] 09-17-2022 11:44-0400 Diastolic blood pressure 70 mm[Hg] Gloria Haagen SOLAR SALES CONSULTANT.COMPOSITION FLOOR SETTER Work Phone: [facility] [place] 09-17-2022 11:44-0400 Heart rate 73 /min Gloria Haagen SOLAR SALES CONSULTANT.COMPOSITION FLOOR SETTER Work Phone: [facility] [place] 09-17-2022 11:44-0400 Respiratory rate 18 /min Gloria Chavez SOLAR SALES CONSULTANT.COMPOSITION FLOOR SETTER Work Phone: [facility] [place] 09-17-2022 11:44-0400 SaO2% (BldA) [Mass fraction] 93 % Gloria Chavez SOLAR SALES CONSULTANT.COMPOSITION FLOOR SETTER Work Phone: [facility] [place] 09-17-2022 11:44-0400 Systolic blood pressure 112 mm[Hg] Gloria Chavez SOLAR SALES CONSULTANT.COMPOSITION FLOOR SETTER Work Phone: [facility] [place] 09-05-2022 07:48-0400 Body temperature 97.3 [degF] Irma Perez PA-C Work Phone: [facility] [place] 09-05-2022 07:48-0400 Body weight 82.1 kg Irma Perez PA-C Work Phone: [facility] [place] 09-05-2022 07:48-0400 Diastolic blood pressure 60 mm[Hg] Irma Perez PA-C Work Phone: [facility] [place] 09-05-2022 07:48-0400 Heart rate 76 /min Irma Perez PA-C Work Phone: [facility] [place] 09-05-2022 07:48-0400 Respiratory rate 18 /min Irma Perez PA-C Work Phone: [facility] [place] 09-05-2022 07:48-0400 Systolic blood pressure 120 mm[Hg] Irma Perez PA-C Work Phone: [facility] [place] 09-02-2022 15:54-0400 Body temperature 97.8 [degF] Dr. Andry Jean-Baptiste Work Phone: [facility] 09-02-2022 15:54-0400 Diastolic blood pressure 54 mm[Hg] Dr. Andry Jean-Baptiste Work Phone: [facility] 09-02-2022 15:54-0400 Heart rate 75 /min Dr. Andry Jean-Baptiste Work Phone: [facility] 09-02-2022 15:54-0400 Respiratory rate 16 /min Dr. Andry Jean-Baptiste Work Phone: [facility] 09-02-2022 15:54-0400 SaO2% (BldA) [Mass fraction] 96 % Dr. Andry Jean-Baptiste Work Phone: [facility] 09-02-2022 15:54-0400 Systolic blood pressure 110 mm[Hg] Dr. Andry Jean-Baptiste Work Phone: [facility] 09-02-2022 13:09-0400 Body height 177.[address] Andry Jean-Baptiste Work Phone: [facility] 09-02-2022 13:09-0400 Body mass index (BMI) [Ratio] 25.9 kg/m2 Dr. Andry Jean-Baptiste Work Phone: [facility] 09-02-2022 13:09-0400 Body weight [address] Andry Jean-Baptiste Work Phone: [facility] 07-14-2022 09:00-0500 Body weight 84.82 kg Lew Bird APRN.COMPOSITION FLOOR SETTER Work Phone: [facility] [place] 07-14-2022 09:00-0500 Diastolic blood pressure 60 mm[Hg] Lew Bird APRN.COMPOSITION FLOOR SETTER Work Phone: [facility] [place] 07-14-2022 09:00-0500 Heart rate 80 /min Lew Bird APRN.COMPOSITION FLOOR SETTER Work Phone: [facility] [place] 07-14-2022 09:00-0500 Respiratory rate 14 /min Lwe Bird APRN.COMPOSITION FLOOR SETTER Work Phone: [facility] [place] 07-14-2022 09:00-0500 Systolic blood pressure 118 mm[Hg] Lew Bird APRN.COMPOSITION FLOOR SETTER Work Phone: [facility] [place] 05-26-2022 10:49-0500 Body height 178 cm Ronak Stauffer DO Work Phone: [facility] [place] 05-26-2022 10:49-0500 Body temperature 97.5 [degF] Ronak Masci DO Work Phone: [facility] [place] 05-26-2022 10:49-0500 Body weight 84.6 kg Ronak Masci DO Work Phone: [facility] [place] 05-26-2022 10:49-0500 Diastolic blood pressure 53 mm[Hg] Ronak Masci DO Work Phone: [facility] [place] 05-26-2022 10:49-0500 Heart rate 75 /min Ronak Masci DO Work Phone: [facility] [place] 05-26-2022 10:49-0500 SaO2% (BldA) [Mass fraction] 98 % Ronak Masci DO Work Phone: [facility] [place] 05-26-2022 10:49-0500 Systolic blood pressure 120 mm[Hg] Ronak Masci DO Work Phone: [facility] [place] 05-15-2022 13:16-0500 Body temperature 96.6 [degF] Andry Jean-Baptiste MD Work Phone: [facility] [place] 05-15-2022 13:16-0500 Body weight 81.65 kg Andry Jean-Baptiste MD Work Phone: [facility] [place] 05-15-2022 13:16-0500 Diastolic blood pressure 70 mm[Hg] Andry Jean-Baptiste MD Work Phone: [facility] [place] 05-15-2022 13:16-0500 Heart rate 97 /min Andry Jean-Baptiste MD Work Phone: [facility] [place] 05-15-2022 13:16-0500 Respiratory rate 22 /min Andry Jean-Baptiste MD Work Phone: [facility] [place] 05-15-2022 13:16-0500 SaO2% (BldA) [Mass fraction] 98 % Andry Jean-Baptiste MD Work Phone: [facility] [place] 05-15-2022 13:16-0500 Systolic blood pressure 138 mm[Hg] Andry Jean-Baptiste MD Work Phone: [facility] [place] 05-01-2022 14:34-0500 Body temperature 98.71 [degF] Radha Bishop APRN.COMPOSITION FLOOR SETTER Work Phone: [facility] [place] 05-01-2022 14:34-0500 Body weight 81.1 kg Radhasydnee Bishop APRN.COMPOSITION FLOOR SETTER Work Phone: [facility] [place] 05-01-2022 14:34-0500 Diastolic blood pressure 76 mm[Hg] Radha Bishop APRN.COMPOSITION FLOOR SETTER Work Phone: [facility] [place] 05-01-2022 14:34-0500 Heart rate 93 /min Radha Bishop APRN.COMPOSITION FLOOR SETTER Work Phone: [facility] [place] 05-01-2022 14:34-0500 Respiratory rate 18 /min Radha Bishop APRN.COMPOSITION FLOOR SETTER Work Phone: [facility] [place] 05-01-2022 14:34-0500 SaO2% (BldA) [Mass fraction] 97 % Radha Bishop APRN.COMPOSITION FLOOR SETTER Work Phone: [facility] [place] 05-01-2022 14:34-0500 Systolic blood pressure 124 mm[Hg] Radha Bishop APRN.COMPOSITION FLOOR SETTER Work Phone: [facility] [place] 03-07-2022 07:54-0400 Body height 175.9 cm Andry Jean-Baptiste MD Work Phone: [facility] [place] 03-07-2022 07:54-0400 Body weight 79.38 kg Andry Jean-Baptiste MD Work Phone: [facility] [place] 03-07-2022 07:54-0400 Diastolic blood pressure 70 mm[Hg] Andry Jean-Baptiste MD Work Phone: [facility] [place] 03-07-2022 07:54-0400 Heart rate 76 /min Andry Jean-Baptiste MD Work Phone: [facility] [place] 03-07-2022 07:54-0400 Respiratory rate 16 /min Andry Jean-Baptiste MD Work Phone: [facility] [place] 03-07-2022 07:54-0400 Systolic blood pressure 132 mm[Hg] Andry Jean-Baptiste MD Work Phone: [facility] [place] 11-13-2021 09:23-0400 Body height 177 cm Angelica Zurita SOLAR SALES CONSULTANT.COMPOSITION FLOOR SETTER Work Phone: [facility] [place] 11-13-2021 09:23-0400 Body temperature 97 [degF] Angelica Zurita SOLAR SALES CONSULTANT.COMPOSITION FLOOR SETTER Work Phone: [facility] [place] 11-13-2021 09:23-0400 Body weight 79.61 kg Angelica Zurita SOLAR SALES CONSULTANT.COMPOSITION FLOOR SETTER Work Phone: [facility] [place] 11-13-2021 09:23-0400 Diastolic blood pressure 57 mm[Hg] Angelica Zurita SOLAR SALES CONSULTANT.COMPOSITION FLOOR SETTER Work Phone: [facility] [place] 11-13-2021 09:23-0400 Heart rate 70 /min [place] Zurita SOLAR SALES CONSULTANT.COMPOSITION FLOOR SETTER Work Phone: [facility] [place] 11-13-2021 09:23-0400 SaO2% (BldA) [Mass fraction] 97 % [place] Zurita SOLAR SALES CONSULTANT.COMPOSITION FLOOR SETTER Work Phone: [facility] [place] 11-13-2021 09:23-0400 Systolic blood pressure 120 mm[Hg] Angelica Zurita SOLAR SALES CONSULTANT.COMPOSITION FLOOR SETTER Work Phone: [facility] [place] 10-24-2021 10:40-0400 Body weight 79.83 kg Andry Jean-Baptiste MD Work Phone: [facility] [place] 08-20-2016 13:32-0400 Heart rate 71 /min Harumi Isabel [facility] Work Phone: 08-20-2016 13:03-0400 BMI (Body Mass Index) 27.52 kg/m2 Ronak Barry MD [facility] Work Phone: 08-20-2016 13:03-0400 BP Diastolic 72 mm[Hg] Ronak Barry MD [facility] Work Phone: 08-20-2016 13:03-0400 BP Systolic 122 mm[Hg] Ronak Barry MD [facility] Work Phone: 08-20-2016 13:03-0400 Height 175.26 cm Ronak Barry MD [facility] Work Phone: 08-20-2016 13:03-0400 Pulse (Heart Rate) 72 /min [facility] Work Phone: 08-20-2016 13:03-0400 Respiratory Rate 14 /min [facility] Work Phone: 08-20-2016 13:03-0400 Weight 84.55 kg Ron[facility] Work Phone: Encounters Encounter Date Encounter Type Care Provider Facility Start: 09-09-2024 End: 09-09-2024 Telephone encounter Jun Abbott MSW Navigation Start: 09-09-2024 End: 09-09-2024 Patient encounter procedure Teri Gross MD Work Phone: Pulmonary Medicine Comment on above: Asthma with COPD wit h exacerbation (HCC) (Primary Dx); Acute bronchitis, unspecified organism; Former cigarette smoker Start: 09-09-2024 End: 09-09-2024 ambulatory [facility] Facility:[facility] Start: 09-08-2024 End: 09-08-2024 Orders Only Teri Gross MD Work Phone: Pulmonary Medicine Start: 09-07-2024 End: 09-09-2024 Telephone encounter Teri Gross MD Work Phone: Pulmonary Medicine Comment on above: Patient Update Start: 08-18-2024 End: 08-18-2024 Telephone encounter Andry Jean-Baptiste MD Work Phone: [facility] [place] Comment on above: scratch left lower a rm Start: 08-18-2024 End: 08-18-2024 ambulatory [facility] Facility:[facility] Start: 08-18-2024 End: 08-18-2024 Office outpatient visit 15 minutes Jaimie Jett SOLAR SALES CONSULTANT.COMPOSITION FLOOR SETTER Work Phone: [facility] [place] Comment on above: Contusion of right u pper arm, initial encounter (Primary Dx) Start: 07-20-2024 End: 07-20-2024 ambulatory ANDRY JEAN-BAPTISTE Facility:[facility] Start: 07-15-2024 End: 07-15-2024 Follow-up encounter Andry Jean-Baptiste MD Work Phone: [facility] [place] Start: 07-14-2024 End: 07-14-2024 Patient encounter procedure Teri Gross MD Work Phone: Pulmonary Medicine Comment on above: Asthma-COPD overlap syndrome (HCC) (Primary Dx); Lung nodules; Former cigarette smoker; Granulomatous disease (HCC) Start: 07-14-2024 End: 07-14-2024 ambulatory ANDRY JEAN-BAPTISTE Facility:[facility] Start: 07-10-2024 End: 07-10-2024 Emergency department patient visit Fredo Smiley Facility:[facility] Start: 07-05-2024 End: 07-05-2024 ambulatory JAIMIE JETT Facility:[facility] Start: 07-05-2024 End: 07-05-2024 Office outpatient visit 15 minutes Jaimie Jett SOLAR SALES CONSULTANT.COMPOSITION FLOOR SETTER Work Phone: [facility] Comment on above: Intractable chronic migraine without aura and without status migrainosus (Primary Dx); Asthma-COPD overlap syndrome (HCC); 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 Comment on above: Future Appointment Start: 07-01-2024 End: 07-01-2024 Subsequent hospital visit by physician Xr [facility] [place] Work Phone: Radiology Comment on above: Acute cough [R05.1] Start: 07-01-2024 End: 07-01-2024 Patient encounter procedure Lew Bird APRN.COMPOSITION FLOOR SETTER Work Phone: [facility] [place] Comment on above: Acute cough (Primary Dx); Wheezing Start: 07-01-2024 End: 07-01-2024 ambulatory ANDRY JEAN-BAPTISTE Facility:[facility] Start: 06-21-2024 End: 06-21-2024 ambulatory JAIMIE JETT Facility:[facility] Start: 06-21-2024 End: 06-21-2024 Office outpatient visit 15 minutes Jaimie Jett APRN.COMPOSITION FLOOR SETTER Work Phone: [facility] [place] Comment on above: Pneumonia of right u pper lobe due to infectious organism (Primary Dx) Start: 06-17-2024 End: 06-17-2024 ambulatory MARIA DE JESUS OSWALD Facility:[facility] Start: 06-17-2024 End: 06-17-2024 Subsequent hospital visit by physician [facility] ([facility]) Work Phone: Cat Scan Comment on above: Lung nodules [R91.8] Start: 06-15-2024 End: 06-15-2024 Patient encounter procedure Andry Jean-Baptiste MD Work Phone: [facility] [place] Comment on above: Encounter for Medica re annual wellness exam (Primary Dx); Mixed hyperlipidemia; Elevated fasting blood sugar; GERD without esophagitis; 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; Bilateral carotid artery disease, unspecified type (HCC); Intractable chronic migraine without aura and without status migrainosus; Pulmonary emphysema, unspecified emphysema type (HCC); Iron deficiency anemia secondary to inadequate dietary iron intake; Primary insomnia; Vitamin D deficiency; Low zinc level; Advance directive discussed with patient; Need for vaccination Start: 06-15-2024 End: 06-15-2024 ambulatory ANDRY JEAN-BAPTISTE Facility:[facility] Start: 05-24-2024 End: 05-24-2024 Refill Irma Perez PA-C Work Phone: [facility] [place] Comment on above: Refill Request Start: 05-23-2024 End: 05-23-2024 ambulatory ANDRY JEAN-BAPTISTE Facility:[facility] Start: 05-19-2024 End: 05-19-2024 Patient encounter procedure Srinath Summers Work Phone: Podiatry Comment on above: Plantar fasciitis (P rimary Dx) Start: 05-19-2024 End: 05-19-2024 ambulatory Andry Jean-Baptiste MD Work Phone: [facility] [place] Comment on above: Script Start: 05-19-2024 End: 05-19-2024 Subsequent hospital visit by physician [facility] [place] Work Phone: Radiology Comment on above: Pain [R52] Start: 05-17-2024 End: 05-17-2024 Telephone encounter Teri Gross MD Work Phone: Pulmonary Medicine Comment on above: Orders Start: 05-12-2024 End: 05-13-2024 Refill Lew Bird APRN.COMPOSITION FLOOR SETTER Work Phone: [facility] [place] Comment on above: Refill Request Start: 04-06-2024 End: 04-06-2024 ambulatory ANDRYGERARD JEAN-BAPTISTE Facility:[facility] Start: 04-06-2024 End: 04-06-2024 Patient encounter procedure Andry Jean-Baptiste MD Work Phone: [facility] [place] Comment on above: Nocturnal leg cramps (Primary Dx); Encounter for immunization Start: 04-04-2024 End: 04-04-2024 ambulatory Elo Simpson RN Chief Legal Officer Management Comment on above: ACAlfonzo KHOURY RN ( No action needed.) Start: 03-30-2024 End: 03-30-2024 Chart abstracting Andry Jean[facility]Baptiste MD [facility] Comment on above: ER Discharge Summary Start: 03-29-2024 End: 03-29-2024 Emergency department patient visit Andry Jean-Baptiste Facility:[facility] Start: 02-15-2024 End: 02-15-2024 Refill Lew Bird SOLAR SALES CONSULTANT.COMPOSITION FLOOR SETTER [facility] Comment on above: Refill Request Start: 01-18-2024 End: 01-19-2024 Refill Teri Gross MD Work Phone: Pulmonary Medicine Comment on above: Refill Request Start: 01-14-2024 End: 01-14-2024 Refill Irma Perez PA-C Work Phone: [facility] [place] Comment on above: Refill Request Start: 12-08-2023 End: 12-08-2023 ambulatory ANDRY JEAN-BAPTISTE Facility:[facility] Start: 12-08-2023 End: 12-08-2023 Patient encounter procedure Irma Perez PA-C Work Phone: [facility] [place] Comment on above: Mixed hyperlipidemia (Primary Dx); Screening for depression; Encounter for screening examination for other mental health and behavioral disorders; 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; [place] (obstructive sleep apnea); Pulmonary emphysema, unspecified emphysema type (HCC); Iron deficiency anemia secondary to inadequate dietary iron intake; Elevated fasting blood sugar; Primary insomnia; Chronic post-traumatic headache, not intractable; Vitamin D deficiency; History of gastric bypass; Medication management; Malabsorption syndrome; GERD without esophagitis; Bilateral carotid artery disease, unspecified type (HCC); Prostate disorder Start: 11-27-2023 End: 11-27-2023 [facility] ANDRY JEAN-BAPTISTE Facility:[facility] Start: 10-22-2023 Chart abstracting Andry lima MD Work Phone: [facility] [place] Comment on above: Ext / [facility] Start: 10-20-2023 End: 10-20-2023 [facility] Andry Jean-Baptiste Facility:[facility] Start: 10-14-2023 End: 10-14-2023 ambulatory ANDRY JEAN-BAPTISTE Facility:[facility] Start: 10-14-2023 End: 10-14-2023 Patient encounter procedure Maria De Jesus Oswald PA-C Work Phone: Pulmonary Medicine Comment on above: Asthma-COPD overlap syndrome (HCC) (Primary Dx); Lung nodules; Granulomatous disease (HCC); Former cigarette smoker Start: 10-02-2023 End: 10-02-2023 Patient encounter procedure Andry Jean-Baptiste MD [facility] Comment on above: COPD exacerbation (H CC) (Primary Dx); Pulmonary emphysema, unspecified emphysema type (HCC); Angular cheilitis Start: 10-02-2023 End: 10-02-2023 ambulatory [facility] Facility:[facility] Start: 09-21-2023 Telephone encounter Lew santiago APRN.COMPOSITION FLOOR SETTER Work Phone: [facility] Comment on above: Results Start: 09-20-2023 ambulatory [facility] Facility :[facility] Start: 09-20-2023 End: 09-23-2023 [facility] Work [facility]: Start: 09-18-2023 End: 09-18-2023 Subsequent hospital visit by physician Xr [facility] Work Phone: Radiology Comment on above: URI, acute [J06.9] Start: 09-18-2023 End: 09-18-2023 [facility] Facility:[facility] Start: 09-18-2023 End: 09-18-2023 Patient encounter procedure Lew Bird APRN.COMPOSITION FLOOR SETTER Work Phone: [facility] [place] Comment on above: URI, acute (Primary Dx); Chronic obstructive pulmonary disease, unspecified COPD type (HCC) Start: 09-08-2023 Refill Teri Gross MD Work Phone: Pulmonary Medicine Comment on above: Refill Request Start: 08-16-2023 Refill Irma Moreno on PA-C Work Phone: [facility] [place] Comment on above: Refill Request Start: 07-23-2023 End: 07-23-2023 Patient encounter procedure Teri Gross MD Work Phone: Pulmonary Medicine Comment on above: Asthma-COPD overlap syndrome (HCC) (Primary Dx); Lung nodules; Granulomatous disease (HCC); Former cigarette smoker Start: 06-22-2023 Telephone encounter Teri Gross MD Work Phone: Pulmonary Medicine Comment on above: Results Start: 06-17-2023 Telephone encounter Teri Gross MD Work Phone: [facility] Provider Adult Comment on above: Results (Chest CT) Results Start: 06-16-2023 End: 06-16-2023 Subsequent hospital visit by physician [facility] (I-Stat) Work Phone: Cat Scan Start: 06-10-2023 End: 06-10-2023 ambulatory [facility] Work Phone: Start: 06-10-2023 End: 06-10-2023 Patient encounter procedure [facility] Work Phone: Start: 06-08-[address] (I-Stat) Work Phone: [facility] Work Phone: Start: 05-18-2023 End: 05-18-2023 Emergency department patient visit [facility] Work Phone: Start: 04-30-2023 Telephone encounter Andry Jean-Baptiste MD Work Phone: [facility] Comment on above: Results Start: 04-28-2023 End: 04-28-2023 Subsequent hospital visit by physician Xr [facility] Work Phone: Radiology Comment on above: URI, acute [J06.9] Start: 04-28-2023 End: 04-28-2023 Patient encounter procedure Andry Jean-Baptiste MD Work Phone: [facility] Comment on above: URI, acute (Primary Dx); SOB (shortness of breath); Epigastric pain; Left-sided chest pain Start: 04-16-2023 End: 04-16-2023 ambulatory Pulm Lab [facility] Work Phone: PULM LAB [facility] Comment on above: Spirometry Start: 04-16-2023 End: 04-16-2023 [facility] Work Phone: [facility] Comment on above: Asthma-COPD overlap syndrome (Primary Dx); Former cigarette smoker; Ground glass opacity present on imaging of lung Start: 04-14-2023 End: 04-14-2023 Patient encounter procedure Lew Bird APRN.COMPOSITION FLOOR SETTER Work Phone: [facility] Comment on above: Chronic obstructive pulmonary disease, unspecified COPD type (HCC) (Primary Dx); Encounter for immunization Start: 03-20-2023 Telephone encounter Andry Jean-Baptiste MD Work Phone: [facility] Comment on above: Patient Update Start: 03-20-2023 End: 03-20-2023 [facility]: Start: 03-13-2023 ambulatory Andry galvez MD Work Phone: [facility] Comment on above: re: Covid Start: 03-13-2023 Telephone encounter Carisa moreno PA-C Work Phone: [facility] Comment on above: Erroneous encounter- disregard Start: 03-12-2023 End: 03-12-2023 Subsequent hospital visit by physician Xr [facility] Work Phone: Radiology Comment on above: Acute cough [R05.1] Start: 02-20-2023 End: 02-20-2023 Patient encounter procedure Lew Bird APRN.COMPOSITION FLOOR SETTER Work Phone: [facility] Comment on above: Community acquired p neumonia, unspecified laterality (Primary Dx); Pulmonary emphysema, unspecified emphysema type (HCC) Start: 02-16-2023 End: 02-16-2023 Patient encounter procedure Eulalia Wells APRN.COMPOSITION FLOOR SETTER Work Phone: [facility] Comment on above: Pneumonia of right l arun due to infectious organism, unspecified part of lung (Primary Dx) Start: 02-09-2023 End: 02-09-2023 [facility] Start: 01-27-2023 Refill Andry galvez MD Work Phone: [facility] Comment on above: Refill Request Start: 10-04-2022 End: 10-04-[address] Andry Jean-Baptiste Work Phone: [facility] Work Phone: Start: 10-04-2022 End: 10-04-[address] Andry Jean-Baptiste Work Phone: [facility]-Laboratory, Specimen Start: 09-24-2022 End: 09-24-[address] Andry Jean-Baptiste Work Phone: [facility] Gastroenterology Start: 09-23-2022 End: 09-23-[address] Andry Jean-Baptiste Work Phone: [facility] Start: 09-17-2022 End: 09-17-2022 Office outpatient visit 15 minutes Gloria Chavez APRN.COMPOSITION FLOOR SETTER Work Phone: [facility] Comment on above: Eczema, unspecified type (Primary Dx) Start: 09-05-2022 End: 09-05-2022 Patient encounter procedure Irma Perez PA-C Work Phone: [facility] Comment on above: Mixed hyperlipidemia (Primary Dx); 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; Pulmonary emphysema, unspecified emphysema type (HCC); INDIA (obstructive sleep apnea); GERD without esophagitis; Elevated fasting blood sugar; Bilateral carotid artery disease, unspecified type (HCC); Vitamin D deficiency; History of gastric bypass; Prostate disorder; Medication management Start: 09-02-2022 Non-patient / Non-visit Dr. Jovi Jean-Baptiste Work Phone: [facility] Start: 09-02-2022 End: 09-02-2022 Admission to same day surgery center Dr. Andry Jean-Baptiste Work Phone: [facility]-Endoscopy Start: 07-14-2022 End: 07-14-2022 Patient encounter procedure Lew Bird APRN.COMPOSITION FLOOR SETTER Work Phone: [facility] [place] Comment on above: Oral polyp (Primary Dx) Start: 06-27-2022 End: 06-27-[address] Andry Jean-Baptiste [facility] [place] [facility] Start: 06-23-2022 Telephone encounter Andry Jean-Baptiste MD Work Phone: [facility] [place] Comment on above: Consult Start: 05-26-2022 End: 05-26-2022 ambulatory Ronak Stauffer DO Work Phone: Hematology/Oncology Comment on above: Iron deficiency anem ia secondary to inadequate dietary iron intake (Primary Dx) Start: 05-26-2022 End: 05-26-2022 Patient encounter procedure Ronak Stauffer DO Work Phone: [facility] Start: 05-23-2022 Orders Only Ronak Reed Work Phone: Hematology/Oncology Comment on above: Iron deficiency anem ia secondary to inadequate dietary iron intake (Primary Dx); Malabsorption syndrome Start: 05-16-2022 Orders Only Ronak Reed Work Phone: Hematology/Oncology Comment on above: Iron deficiency anem ia secondary to inadequate dietary iron intake (Primary Dx) Start: 05-15-2022 End: 05-15-2022 Patient encounter procedure Andry Jean-Baptiste MD Work Phone: [facility] Comment on above: Bronchitis (Primary Dx); Advance directive discussed with patient; Pulmonary emphysema, unspecified emphysema type (HCC) Start: 05-02-2022 ambulatory Andry galvez MD Work Phone: [facility] [place] Comment on above: Test result Start: 05-01-2022 End: 05-01-2022 Patient encounter procedure Radha Bishop APRN.CNP Work Phone: [facility] Comment on above: URI, acute (Primary Dx); Non-recurrent acute suppurative otitis media of right ear without spontaneous rupture of tympanic membrane Start: 04-15-2022 End: 04-15-2022 Patient encounter procedure Srinath Summers Work Phone: Podiatry Comment on above: Ingrowing toenail (P rimary Dx); Nail problem; Diminished pulses in lower extremity; Tinea pedis of both feet Start: 03-07-2022 End: 03-07-2022 Patient encounter procedure Andry Jean-Baptiste MD Work Phone: [facility] [place] Comment on above: Medicare annual well ness visit, initial (Primary Dx); Mixed hyperlipidemia; 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; Intractable chronic migraine without aura and without status migrainosus; Elevated fasting blood sugar; Bilateral carotid artery disease, unspecified type (HCC); GERD without esophagitis; Pulmonary emphysema, unspecified emphysema type (HCC); Vitamin D deficiency; Primary insomnia; INDIA (obstructive sleep apnea); Malabsorption syndrome; Iron deficiency anemia secondary to inadequate dietary iron intake; Living will in place; Encounter for immunization; Nail problem Start: 01-27-2022 Refill Andry galvez MD Work Phone: [facility] [place] Comment on above: Refill Request Start: 11-14-2021 ambulatory Angelica davis SOLAR SALES CONSULTANT.COMPOSITION FLOOR SETTER Work Phone: Hematology/Oncology Comment on above: Iron Start: 11-13-2021 End: 11-13-2021 ambulatory Angelica Zurita APRN.COMPOSITION FLOOR SETTER Work Phone: Hematology/Oncology Comment on above: Iron deficiency anem ia secondary to inadequate dietary iron intake (Primary Dx); Malabsorption syndrome Start: 11-13-2021 End: 11-13-2021 Patient encounter procedure Angelica Zurita APRN.COMPOSITION FLOOR SETTER Work Phone: [facility] Start: 10-29-2021 Chart abstracting Andry lima MD Work Phone: [facility] [place] Comment on above: Heart Catheterizatio n Follow Up Start: 10-28-2021 Telephone encounter Andry Jean-Baptiste MD Work Phone: [facility] [place] Comment on above: Results Start: 10-24-2021 Telephone encounter Brigitte Bishop MA [facility] [place] Comment on above: Appointment Start: 10-24-2021 End: 10-24-2021 Subsequent hospital visit by physician Xr [facility] [place] Work Phone: Radiology Comment on above: Left-sided chest wal l pain [R07.89] Start: 10-24-2021 End: 10-24-2021 Patient encounter procedure Andry Jean-Baptiste MD Work Phone: [facility] [place] Comment on above: Coronary artery dise ase involving huslia coronary artery of huslia heart without angina pectoris (Primary Dx); Exertional chest pain; Left hand pain; Left-sided chest wall pain Start: 10-17-2021 ambulatory Andry galvez MD Work Phone: [facility] [place] Start: 10-17-2021 Patient encounter procedure Andry Jean-Baptiste MD Work Phone: [facility] [place] Comment on above: Upcoming appointment Start: 09-04-2021 Telephone encounter Andry Jean-Baptiste MD Work Phone: [facility] [place] Comment on above: Results Start: 09-03-2021 Get Medical Advice Andry Jean-Baptiste MD Work Phone: [facility] [place] Comment on above: Medication refill Start: 03-04-2021 Patient encounter procedure Andry Jean-Baptiste MD Work Phone: [facility] Work Phone: Start: 01-01-2017 End: 04-16-2017 [facility] Procedures Date Procedure Procedure Detail Performing Clinician Start: 07-01-2024 Radiologic exam ches t 2 views Lew Bird SOLAR SALES CONSULTANT.COMPOSITION FLOOR SETTER Work Phone: Start: 05-23-2024 Lipid 1996 panel - S deshaun or Plasma Irma Perez PA-C Work Phone: Start: 12-08-2023 Adult depression scr eening assessment Irma Perez PA-C Work Phone: Start: 11-27-2023 Lipid 1996 panel - S deshaun or Plasma Irma Perez PA-C Work Phone: Start: 09-20-2023 Plain chest X-ray Start: 09-18-2023 Radiologic exam ches t 2 views Lew Bird APRN.COMPOSITION FLOOR SETTER Work Phone: Start: 09-18-2023 Ecg routine ecg w/le ast 12 lds i&r only [facility] Provider Start: 06-16-2023 Ct thorax w/o contra st material Teri Gross MD Work Phone: Start: 05-18-2023 SARS-CoV-2, Influenz a & RSV (PCR) Start: 05-18-2023 Plain chest X-ray Start: 04-28-2023 Radiologic exam ches t 2 views Andry Jean-Baptiste MD Work Phone: Start: 04-16-2023 Co diffusing capacity E romain Gross MD Work Phone: Start: 04-14-2023 INFLUENZA VACCINE, P RSV FREE, AGE 65+ YR, HIGH DOSE, QUADRIVALENT (FLUZONE HIGH-DOSE) Lew Bird APRN.COMPOSITION FLOOR SETTER Work Phone: Start: 03-20-2023 Plain chest X-ray Start: 03-12-2023 Radiologic exam ches t 2 views Domingo Valencia SOLAR SALES CONSULTANT.COMPOSITION FLOOR SETTER Work Phone: Start: 03-09-2023 Lipid 1995 panel - S deshaun or Plasma Carisa Kumar PA-C Work Phone: Start: 02-09-2023 Plain chest X-ray Start: 02-09-2023 Computed tomography of abdomen and pelvis with intravenous contrast Start: 02-09-2023 CT of head without contrast Start: 09-23-2022 CT of chest and abdomen Dr. Andry Jean-Baptiste Work Phone: Start: 08-29-2022 Lipid 1996 panel - S deshaun or Plasma Andry Jean-Baptiste MD Work Phone: Start: 05-01-2022 COVID WITH FLUA+B, ROUTINE Radha James SOLAR SALES CONSULTANT.COMPOSITION FLOOR SETTER Work Phone: Start: 03-07-2022 INFLUENZA SEASONAL QUADRIVALENT HIGH DOSE AGE 65+ Andry Jean-Baptiste MD Work Phone: Start: 11-10-2021 Adult depression scr eening assessment Angelica Zurita SOLAR SALES CONSULTANT.COMPOSITION FLOOR SETTER Work Phone: Start: 10-24-2021 Radex ribs uni w/pos teroant ch minimum 3 views Andry Jean-Baptiste MD Work Phone: Start: 10-23-2020 Colonoscopy Andry lima MD Work Phone: Start: 08-27-2020 Adult depression scr eening assessment Andry Jean-Baptiste MD Work Phone: Start: 08-20-2016 End: 08-20-2016 Dietary management education, guidance, and counseling Sena Hall Start: 08-20-2016 End: 09-08-2016 *BMP Ronak Barry MD Start: 08-20-2016 End: 09-08-2016 aPTT Ronak Barry MD Start: 08-20-2016 End: 09-08-2016 CBC W Auto Differential panel - Blood Ronak Barry MD Start: 08-20-2016 End: 09-09-2016 Chest x-ray Ronak Barry MD Start: 08-20-2016 End: 09-08-2016 Coagulation factor induced.INR assay in platelet poor plasma Ronak Barry MD Start: 08-20-2016 End: 10-10-2016 Electrocardiogram, complete Ronak alexandra MD Start: 08-20-2016 End: 10-10-2016 Follow Up Appt 2 months Ronak Barry MD Start: 08-20-2016 End: 10-10-2016 Left Heart Cath Ronak Barry MD Start: 08-20-2016 End: 10-10-2016 MMM Ronak Barry MD Investigation of transfusion reaction Dr. Andry Jean-Baptiste Work Phone: Respiratory microbia l culture Dr. Andry Jean-Baptiste Work Phone: Plan of Treatment Date Care Activity Detail Author Start: 06-11-2033 Urine microalbumin profile DTaP,Tdap,Td Vaccine (4 - Td or Tdap) [facility] Start: 06-10-2033 Urine microalbumin profile DTaP,Tdap,Td Vaccine (3 - Td or Tdap) [facility] Start: 10-23-2030 Colonoscopy COLONOSCOPY [facility] Start: 10-23-2030 COLORECTAL CANCER SCREENING COLORECTAL CANCER SCREENING [facility] Start: 10-23-2030 Screening for malign ant neoplasm of colon [facility] Start: 05-23-2029 Lipid panel Lipid Screening [facility] Start: 11-26-2028 Lipid panel Lipid Screening [facility] Start: 03-09-2028 Lipid 1996 panel - Serum or Plasma Lipid Screening [facility] Start: 03-09-2028 Lipid panel Lipid Screening [facility] Start: 03-09-2028 Prostate Cancer Screening Discussion Prostate Cancer Screening Discussion [facility] Start: 03-09-2028 Prostate specific antigen measurement Prostate Cancer Screening Discussion [facility] Start: 08-30-2027 Lipid 1996 panel - Serum or Plasma Lipid Screening [facility] Start: 08-30-2027 LIPID SCREEN LIPID SCREEN [facility] Start: 05-23-2027 Diabetes Screening Diabetes Screen[facility] Start: 03-05-2027 LIPID SCREEN LIPID SCREEN [facility] Start: 03-05-2027 PROSTATE CANCER SCREENING DISCUSSION PROSTATE CANCER SCREENING DISCUSSION [facility] Start: 11-26-2026 Diabetes Screening Diabetes Screenin g [facility] Start: 08-28-2026 LIPID SCREEN LIPID SCREEN [facility] Start: 03-09-2026 Diabetes Screening Diabetes Screenin g [facility] Start: 03-01-2026 PROSTATE CANCER SCREENING DISCUSSION PROSTATE CANCER SCREENING DISCUSSION [facility] Start: 08-29-2025 DIABETES SCREEN DIABETES SCREEN [facility] Start: 08-29-2025 Diabetes Screening Diabetes Screenin g [facility] Start: 08-18-2025 Annual PCP Team [place] [employer] [facility] Disease Visit Annual PCP Team Chronic Disease Visit [facility] Start: 07-21-2025 End: 07-21-2025 Patient encounter procedure 07/21/2025 8:40 AM EDT Appointment Cat Scan [address] [place] [address] Cat Scan Comment on above: CHEST CT Start: 07-05-2025 Annual PCP Team [employer] dewayne Disease Visit Annual PCP Team Chronic Disease Visit [facility] Start: 07-01-2025 Annual PCP Team [employer] dewayne Disease Visit Annual PCP Team Chronic Disease Visit [facility] Start: 06-21-2025 Annual PCP Team [place] [employer] de[facility] Disease Visit Annual PCP Team Chronic Disease Visit [facility] Start: 06-19-2025 End: 08-13-2025 CT Chest WO contrast CT CHEST WO IVCON Radiology Routine Lung nodules Former cigarette smoker Expected: 06/19/2025, Expires: 08/13/2025 [facility] Work Phone: Comment on above: Expected: 06/19/2025 , Expires: 08/13/2025 Start: 06-15-2025 Annual PCP Team [employer] [facility] de[facility] Disease Visit Annual PCP Team Chronic Disease Visit [facility] Start: 05-23-2025 Hepatitis B surface antibody level LDL Cholesterol [facility] Start: 04-06-2025 Annual PCP Team [facility] [employer] [facility] Disease Visit Annual PCP Team Chronic Disease Visit [facility] Start: 03-05-2025 DIABETES SCREEN DIABETES SCREEN [facility] Start: 01-17-2025 End: 01-17-2025 Patient encounter procedure Pulmonary Medicine Comment on above: 6 MTH F/U COPD Start: 12-13-2024 End: 12-13-2024 Patient encounter procedure 12/13/2024 9:00 AM EDT Office Visit [facility] [place] [address] [place] [address] Lew Bird, SOLAR SALES CONSULTANT.COMPOSITION FLOOR SETTER [address] [place] [address] 6 month follow up [facility] [place] Comment on above: 6 month follow up Start: 12-07-2024 Annual PCP Team [employer] [facility] deway[facility] Disease Visit Annual PCP Team Chronic Disease Visit [facility] Start: 12-07-2024 Anxiety Screening Anxiety Screening [facility] Start: 12-07-2024 Depression Screening Depression Scre ening [facility] Start: 12-02-2024 End: 03-03-2025 Hemoglobin A1c in Blood HEMOGLOBIN A1C Lab Routine Elevated fasting blood sugar Expected: 12/02/2024, Expires: 03/03/2025 [facility] Comment on above: Expected: 12/02/2024 , Expires: 03/03/2025 Start: 12-02-2024 End: 03-03-2025 LIPID PANEL, NONFASTING LIPID PANEL, NONFASTING Lab Routine Mixed hyperlipidemia 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 Bilateral carotid artery disease, unspecified type (HCC) Expected: 12/02/2024, Expires: 03/03/2025 [facility] Comment on above: Expected: 12/02/2024 , Expires: 03/03/2025 Start: 11-26-2024 Hepatitis B surface antibody level LDL Cholesterol [facility] Start: 11-07-2024 Influenza vaccination Influenza Vacc ine (#1) [facility] Comment on above: Postponed from 01/09 (Declined at this time) Start: 10-01-2024 Annual PCP Team [employer] dewayne Disease Visit Annual PCP Team Chronic Disease Visit [facility] Start: 09-17-2024 Annual PCP Team [employer] dewayne Disease Visit Annual PCP Team Chronic Disease Visit [facility] Start: 09-09-2024 End: 09-09-2024 Patient encounter procedure 09/09/2024 10:30 AM EDT Office Visit Pulmonary Medicine [address] [place] [address] Teri Gross MD [address] [place] [address] COPD flare up Pulmonary Medicine Comment on above: COPD flare up Start: 08-28-2024 DIABETES SCREEN DIABETES SCREEN [facility] Start: 07-20-2024 End: 07-20-2024 Patient encounter procedure 07/20/2024 9:00 AM EDT Office Visit Vasculary Surgery [address] [place] [address] Bilateral carotid artery disease, unspecified type (HCC) [I77.9] Vasculary Surgery Comment on above: Bilateral carotid ar amy disease, unspecified type (HCC) [I77.9] Start: 07-14-2024 End: 07-14-2024 Patient encounter procedure 07/14/2024 10:00 AM EST Office Visit Pulmonary Medicine [address] [place] [address] Teri Gross MD [address] [place] [address] 9 MTH F/U LUNG NODULES Pulmonary Medicine Comment on above: 9 MTH F/U LUNG NODUL ES Start: 07-13-2024 End: 10-12-2024 Zinc [Mass/volume] in Serum or Plasma ZINC BLD Lab Routine Low zinc level Expected: 07/13/2024, Expires: 10/12/2024 [facility] Comment on above: Expected: 07/13/2024 , Expires: 10/12/2024 Start: 07-05-2024 End: 07-05-2024 Patient encounter procedure [facility] [place] Comment on above: 2 wk follow up; james mitchell Start: 06-23-2024 End: 06-23-2024 Patient encounter procedure 06/23/2024 3:30 PM EST Office Visit Vasculary Surgery [address] [place] [address] Bilateral carotid artery disease, unspecified type (HCC) [I77.9] Vasculary Surgery Comment on above: Bilateral carotid ar amy disease, unspecified type (HCC) [I77.9] Start: 06-20-2024 End: 06-16-2025 CT Chest WO contrast CT [facility]ST WO [facility] Radiology Routine Lung nodules Expected: 06/20/2024, Expires: 06/16/2025 [facility] Work Phone: Comment on above: Expected: 06/20/2024 , Expires: 06/16/2025 Start: 06-17-2024 End: 06-17-2024 Patient encounter procedure 06/17/2024 9:00 AM EST Appointment Cat Scan [address] [place], [place] [id number] CT CHEST Cat Scan Comment on above: CT CHEST Start: 06-15-2024 End: 06-15-2024 Patient encounter procedure 06/15/2024 9:40 AM EST Office Visit [facility] [place] [address] [place], [place] [id number] Andry Jean-Baptiste MD [address] [facility] [place] [address] medicare wellness [facility] [place] Comment on above: medicare wellness Start: 06-13-2024 End: 11-12-2024 CT Chest WO contrast CT CHEST WO IVCON Radiology Routine Lung nodules Expected: 06/13/2024, Expires: 11/12/2024 [facility] Work Phone: Comment on above: Expected: 06/13/2024 , Expires: 11/12/2024 Start: 06-08-2024 Annual PCP Team [employer] de[facility]ne Disease Visit Annual PCP Team Chronic Disease Visit [facility] Start: 06-08-2024 Shingrix Vaccine (1 of 2) Shingrix Vaccine (1 of 2) [facility] Comment on above: Postponed from 11/15 (Insurance Coverage) Start: 05-23-2024 End: 08-22-2024 25-hydroxyvitamin D3 [Mass/volume] in Serum or Plasma VITAMIN D 25 HYDROXY Lab Routine History of gastric bypass Malabsorption syndrome Expected: 05/23/2024, Expires: 08/22/2024 [facility] Comment on above: Expected: 05/23/2024 , Expires: 08/22/2024 Start: 05-23-2024 End: 08-22-2024 CBC W Auto Differential panel - Blood COMPLETE BLOOD COUNT AND DIFFERENTIAL Lab Routine Elevated fasting blood sugar Expected: 05/23/2024, Expires: 08/22/2024 [facility] Comment on above: Expected: 05/23/2024 , Expires: 08/22/2024 Start: 05-23-2024 End: 08-22-2024 Cobalamin (Vitamin B12) [Mass/volume] in Serum or Plasma VITAMIN B12 Lab Routine History of gastric bypass Malabsorption syndrome Expected: 05/23/2024, Expires: 08/22/2024 [facility] Comment on above: Expected: 05/23/2024 , Expires: 08/22/2024 Start: 05-23-2024 End: 08-22-2024 Comprehensive metabolic 2000 panel - Serum or Plasma COMPREHENSIVE METABOLIC PANEL Lab Routine Elevated fasting blood sugar Expected: 05/23/2024, Expires: 08/22/2024 [facility] Comment on above: Expected: 05/23/2024 , Expires: 08/22/2024 Start: 05-23-2024 End: 08-22-2024 Ferritin [Mass/volume] in Serum or Plasma FERRITIN Lab Routine History of gastric bypass Malabsorption syndrome Expected: 05/23/2024, Expires: 08/22/2024 [facility] Comment on above: Expected: 05/23/2024 , Expires: 08/22/2024 Start: 05-23-2024 End: 08-22-2024 Folate [Mass/volume] in Serum or Plasma FOLATE, SERUM Lab Routine History of gastric bypass Malabsorption syndrome Expected: 05/23/2024, Expires: 08/22/2024 [facility] Comment on above: Expected: 05/23/2024 , Expires: 08/22/2024 Start: 05-23-2024 End: 08-22-2024 Hemoglobin A1c in Blood HEMOGLOBIN A1C Lab Routine Elevated fasting blood sugar Expected: 05/23/2024, Expires: 08/22/2024 [facility] Work Phone: Comment on above: Expected: 05/23/2024 , Expires: 08/22/2024 Start: 05-23-2024 End: 08-22-2024 Iron and Iron binding capacity panel - Serum or Plasma IRON AND TIBC Lab Routine History of gastric bypass Malabsorption syndrome Expected: 05/23/2024, Expires: 08/22/2024 [facility] Comment on above: Expected: 05/23/2024 , Expires: 08/22/2024 Start: 05-23-2024 End: 08-22-2024 LIPID PANEL, NONFASTING LIPID PANEL, NONFASTING Lab Routine Mixed hyperlipidemia Expected: 05/23/2024, Expires: 08/22/2024 [facility] Comment on above: Expected: 05/23/2024 , Expires: 08/22/2024 Start: 05-23-2024 End: 08-22-2024 Prostate specific Ag [Mass/volume] in Serum or Plasma PROSTATE-SPECIFIC ANTIGEN DIAGNOSTIC Lab Routine Prostate disorder Expected: 05/23/2024, Expires: 08/22/2024 [facility] Comment on above: Expected: 05/23/2024 , Expires: 08/22/2024 Start: 05-23-2024 End: 08-22-2024 Retinol [Mass/volume] in Serum or Plasma VITAMIN A/RETINOL Lab Routine History of gastric bypass Malabsorption syndrome Expected: 05/23/2024, Expires: 08/22/2024 [facility] [place] Comment on above: Expected: 05/23/2024 , Expires: 08/22/2024 Start: 05-23-2024 End: 08-22-2024 Urinalysis complete panel - Urine URINALYSIS, WITH MICROSCOPIC Lab Routine Elevated fasting blood sugar Expected: 05/23/2024, Expires: 08/22/2024 [facility] [place] Comment on above: Expected: 05/23/2024 , Expires: 08/22/2024 Start: 05-23-2024 End: 08-22-2024 Zinc [Mass/volume] in Serum or Plasma ZINC BLD Lab Routine History of gastric bypass Malabsorption syndrome Expected: 05/23/2024, Expires: 08/22/2024 [facility] [place] Comment on above: Expected: 05/23/2024 , Expires: 08/22/2024 Start: 05-23-2024 End: 05-23-2024 ambulatory 05/23/2024 8:00 AM EST Results Only [facility] [address] [place] [address] Mary Jane Sanderswn [facility] Start: 05-19-2024 End: 05-19-2024 Patient encounter procedure Radiology Comment on above: LEFT FOOT LEFT FOOT PAIN Start: 05-11-2024 Advance Directive Discussion Advance Directive Discussion [facility] [place] Start: 04-28-2024 Annual PCP Team [employer] Ranger dewayne Disease Visit Annual PCP Team Chronic Disease Visit [facility] [place] Start: 04-14-2024 Annual PCP Team [place] [employer] Ranger dewayne Disease Visit Annual PCP Team Chronic Disease Visit [facility] [place] Start: 04-14-2024 Covid-19 Vaccine () Covid-19 Vaccine () [facility] [place] Comment on above: Postponed from 01/09 (Declined at this time) Start: 04-06-2024 End: 04-06-2024 Patient encounter procedure 04/06/2024 11:20 AM EST Office Visit Family Medicine [facility] [address] [place] [id number] Andry Jean-Baptiste MD [address] [place] [address] [facility] f/u muscle cramps both legs Family Medicine [facility] [place] Comment on above: Mary Jane ER f/u muscl e cramps both legs Start: 03-09-2024 Hepatitis B surface antibody level LDL Cholesterol [facility] [place] Start: 02-21-2024 Annual PCP Team [employer] dewayne Disease Visit Annual PCP Team Chronic Disease Visit [facility] [place] Start: 01-27-2024 End: 01-27-2024 Patient encounter procedure 01/27/2024 2:00 PM EDT Office Visit Pulmonary Medicine [address] [place] [address] Maria De Jesus Oswald PA-C [address] [place] [address] 6 MTH F/U Pulmonary Medicine Comment on above: 6 MTH F/U Start: 01-10-2024 Covid-19 Vaccine ( season) Covid-19 Vaccine ( season) [facility] [place] Start: 01-10-2024 Covid-19 Vaccine ( season) Covid-19 Vaccine ( season) [facility] [place] Start: 01-10-2024 Influenza vaccination Influenza Vacc ine (#1) [facility] [place] Start: 12-07-2023 End: 12-07-2023 Patient encounter procedure 12/07/2023 8:20 AM EDT Office Visit Family Medicine Mary Jane [address] [place] [address] Irma Perez PA-C [address] [place], [place] [id number] 6 month follow up Family Medicine [place] Comment on above: 6 month follow up Start: 11-27-2023 End: 11-27-2023 ambulatory 11/27/2023 8:30 AM EDT Results Only [place] [facility]wn [facility] [address] [place] [address] [facility] Start: 09-20-2023 Taking nasal swab [facility] Start: 09-20-2023 Verification routine [facility] Start: 09-20-2023 Hospital admission, emergency, from emergency room, medical nature [facility] Start: 09-20-2023 Admission procedure [facility] Start: 09-20-2023 Bacteria identified in Blood by Culture Blood Culture [facility] Start: 09-20-2023 Microscopic observat ion [Identifier] in Unspecified specimen by Gram stain [facility] Start: 09-20-2023 Respiratory Culture Respiratory Cult ure [facility] Start: 09-20-2023 Blood culture [facility] Start: 09-20-2023 [facility] Start: 09-18-2023 ANNUAL PCP TEAM FUEL INJECTION SERVICER DEWAYNE DISEASE VISIT ANNUAL PCP TEAM CHRONIC DISEASE VISIT [facility] [place] Start: 09-06-2023 ANNUAL PCP TEAM FUEL INJECTION SERVICER DEWAYNE DISEASE VISIT ANNUAL PCP TEAM CHRONIC DISEASE VISIT [facility] [place] Start: 08-30-2023 Hepatitis B surface antibody level LDL CHOLESTEROL [facility] [place] Start: 08-21-2023 Shingrix Vaccine (2 of 2) Shingrix Vaccine (2 of 2) [facility] [place] Start: 07-15-2023 ANNUAL PCP TEAM FUEL INJECTION SERVICER DEWAYNE DISEASE VISIT ANNUAL PCP TEAM CHRONIC DISEASE VISIT [facility] [place] Start: 06-15-2023 End: 05-15-2024 Ct thorax w/o contrast material CT CHEST WO IVCON Radiology Routine Expected: 06/15/2023, Expires: 05/15/2024 [facility] Work Phone: Comment on above: Expected: 06/15/2023 , Expires: 05/15/2024 Start: 05-18-2023 [facility] Start: 05-15-2023 ANNUAL PCP TEAM FUEL INJECTION SERVICER DEWAYNE DISEASE VISIT ANNUAL PCP TEAM CHRONIC DISEASE VISIT [facility] [place] Start: 05-11-2023 Behavioral Health Screening Behavioral Health Screening [facility] [place] Start: 04-16-2023 End: 07-16-2023 [facility] Work Phone: Comment on above: Expected: 04/16/2023 , Expires: 07/16/2023 Start: 04-16-2023 End: 07-16-2023 [employer] [facility] Work Phone: Comment on above: Expected: 04/16/2023 , Expires: 07/16/2023 Start: 03-20-2023 [facility] Start: 03-20-2023 [facility] Start: 03-07-2023 End: 05-07-2023 25-hydroxyvitamin D3 [Mass/volume] in Serum or Plasma VITAMIN D 25 HYDROXY Lab Routine History of gastric bypass Medication management Expected: 03/07/2023, Expires: 05/07/2023 [facility] Work Phone: Comment on above: Expected: 03/07/2023 , Expires: 05/07/2023 Start: 03-07-2023 ANNUAL PCP TEAM FUEL INJECTION SERVICER DEWAYNE DISEASE VISIT ANNUAL PCP TEAM CHRONIC DISEASE VISIT [facility] [place] Start: 03-07-2023 End: 05-07-2023 CBC W Auto Differential panel - Blood CBC + DIFF Lab Routine Elevated fasting blood sugar Expected: 03/07/2023, Expires: 05/07/2023 [facility] Work Phone: Comment on above: Expected: 03/07/2023 , Expires: 05/07/2023 Start: 03-07-2023 End: 05-07-2023 Cobalamin (Vitamin B12) [Mass/volume] in Serum or Plasma VITAMIN B12 BLOOD Lab Routine History of gastric bypass Medication management Expected: 03/07/2023, Expires: 05/07/2023 [facility] Work Phone: Comment on above: Expected: 03/07/2023 , Expires: 05/07/2023 Start: 03-07-2023 End: 05-07-2023 Comprehensive metabolic 2000 panel - Serum or Plasma COMP METABOLIC PANEL Lab Routine Mixed hyperlipidemia GERD without esophagitis Elevated fasting blood sugar Expected: 03/07/2023, Expires: 05/07/2023 [facility] Work Phone: Comment on above: Expected: 03/07/2023 , Expires: 05/07/2023 Start: 03-07-2023 End: 05-07-2023 Folate [Mass/volume] in Serum or Plasma FOLATE SERUM Lab Routine History of gastric bypass Medication management Expected: 03/07/2023, Expires: 05/07/2023 [facility] Work Phone: Comment on above: Expected: 03/07/2023 , Expires: 05/07/2023 Start: 03-07-2023 End: 05-07-2023 Hemoglobin A1c in Blood HGB A1C Lab Routine Elevated fasting blood sugar Expected: 03/07/2023, Expires: 05/07/2023 [facility] Work Phone: Comment on above: Expected: 03/07/2023 , Expires: 05/07/2023 Start: 03-07-2023 End: 05-07-2023 Iron and Iron binding capacity panel - Serum or Plasma IRON + TIBC Lab Routine History of gastric bypass Medication management Expected: 03/07/2023, Expires: 05/07/2023 [facility] Work Phone: Comment on above: Expected: 03/07/2023 , Expires: 05/07/2023 Start: 03-07-2023 End: 05-07-2023 LIPID PANEL, NONFASTING LIPID PANEL, NONFASTING Lab Routine Mixed hyperlipidemia Expected: 03/07/2023, Expires: 05/07/2023 [facility] Work Phone: Comment on above: Expected: 03/07/2023 , Expires: 05/07/2023 Start: 03-07-2023 End: 05-07-2023 Magnesium [Mass/volume] in Serum or Plasma MAGNESIUM BLD Lab Routine History of gastric bypass Medication management Expected: 03/07/2023, Expires: 05/07/2023 [facility] Work Phone: Comment on above: Expected: 03/07/2023 , Expires: 05/07/2023 Start: 03-07-2023 End: 05-07-2023 Prostate specific Ag [Mass/volume] in Serum or Plasma PSA/PROSTSPECAG DIAG Lab Routine Prostate disorder Expected: 03/07/2023, Expires: 05/07/2023 [facility] Work Phone: Comment on above: Expected: 03/07/2023 , Expires: 05/07/2023 Start: 03-07-2023 End: 05-07-2023 Retinol [Mass/volume] in Serum or Plasma VITAMIN A/RETINOL Lab Routine History of gastric bypass Medication management Expected: 03/07/2023, Expires: 05/07/2023 [facility] Work Phone: Comment on above: Expected: 03/07/2023 , Expires: 05/07/2023 Start: 03-07-2023 SHINGRIX VACCINE (1 of 2) SHINGRIX VACCINE (1 of 2) [facility] [place] Comment on above: Postponed from 11/15 (Insurance Coverage) Start: 03-07-2023 End: 05-07-2023 Urinalysis complete panel - Urine URINALYSIS, WITH MICROSCOPIC Lab Routine Elevated fasting blood sugar Expected: 03/07/2023, Expires: 05/07/2023 [facility] Work Phone: Comment on above: Expected: 03/07/2023 , Expires: 05/07/2023 Start: 03-07-2023 End: 05-07-2023 Zinc [Mass/volume] in Serum or Plasma ZINC BLD Lab Routine History of gastric bypass Medication management Expected: 03/07/2023, Expires: 05/07/2023 [facility] Work Phone: Comment on above: Expected: 03/07/2023 , Expires: 05/07/2023 Start: 03-05-2023 Hepatitis B surface antibody level LDL CHOLESTEROL [facility] [place] Start: 02-09-2023 [facility] Start: 01-12-2023 Urine microalbumin profile [facility] [place] Start: 01-09-2023 Covid-19 Vaccine () Covid-19 Vaccine () [facility] [place] Start: 01-09-2023 Influenza vaccination Influenza Vacc ine (#1) [facility] [place] Start: 11-10-2022 Adult depression screening assessment DEPRESSION SCREENING [facility] [place] Start: 10-24-2022 ANNUAL PCP TEAM FUEL INJECTION SERVICER DEWAYNE DISEASE VISIT ANNUAL PCP TEAM CHRONIC DISEASE VISIT [facility] [place] Start: 09-03-2022 ANNUAL PCP TEAM FUEL INJECTION SERVICER DEWAYNE DISEASE VISIT ANNUAL PCP TEAM CHRONIC DISEASE VISIT [facility] [place] Start: 09-02-2022 Egd flexible foreign body removal EGD REMOVE FOREIGN BODY [facility] Start: 09-02-2022 Egd insert guide wir e dilator passage esophagus EGD GUIDE WIRE INSERTION [facility] Start: 09-02-2022 Egd transoral biopsy single/multiple EGD BIOPSY SINGLE/MULTIPLE [facility] Start: 09-02-2022 Patient discharge [facility] Start: 08-28-2022 Hepatitis B surface antibody level LDL CHOLESTEROL [facility] [place] Start: 08-22-2022 End: 10-22-2022 Hemoglobin A1c in Blood HGB A1C Lab Routine Elevated fasting blood sugar Expected: 08/22/2022, Expires: 10/22/2022 [facility] Work Phone: Comment on above: Expected: 08/22/2022 , Expires: 10/22/2022 Start: 08-22-2022 End: 10-22-2022 Hepatic function 2000 panel - Serum or Plasma HEPATIC FUNCTION PNL Lab Routine 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 Mixed hyperlipidemia Expected: 08/22/2022, Expires: 10/22/2022 [facility] Work Phone: Comment on above: Expected: 08/22/2022 , Expires: 10/22/2022 Start: 08-22-2022 End: 10-22-2022 LIPID PANEL, NONFASTING LIPID PANEL, NONFASTING Lab Routine 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 Mixed hyperlipidemia Bilateral carotid artery disease, unspecified type (HCC) Expected: 08/22/2022, Expires: 10/22/2022 [facility] Work Phone: Comment on above: Expected: 08/22/2022 , Expires: 10/22/2022 Start: 07-19-2022 Covid-19 Vaccine (5 - Moderna series) Covid-19 Vaccine (5 - Moderna series) [facility] [place] Start: 05-26-2022 End: 07-26-2022 CBC W Auto Differential panel - Blood CBC + DIFF Lab STAT Iron deficiency anemia secondary to inadequate dietary iron intake Malabsorption syndrome Expected: 05/26/2022, Expires: 07/26/2022 [facility] Work Phone: Comment on above: Expected: 05/26/2022 , Expires: 07/26/2022 Start: 05-26-2022 End: 07-26-2022 Ferritin [Mass/volume] in Serum or Plasma FERRITIN BLD Lab Routine Iron deficiency anemia secondary to inadequate dietary iron intake Malabsorption syndrome Expected: 05/26/2022, Expires: 07/26/2022 [facility] Work Phone: Comment on above: Expected: 05/26/2022 , Expires: 07/26/2022 Start: 05-26-2022 End: 07-26-2022 Iron and Iron binding capacity panel - Serum or Plasma IRON + TIBC Lab Routine Iron deficiency anemia secondary to inadequate dietary iron intake Malabsorption syndrome Expected: 05/26/2022, Expires: 07/26/2022 [facility] Work Phone: Comment on above: Expected: 05/26/2022 , Expires: 07/26/2022 Start: 05-19-2022 End: 07-19-2022 CBC W Auto Differential panel - Blood CBC + DIFF Lab STAT Iron deficiency anemia secondary to inadequate dietary iron intake Expected: 05/19/2022, Expires: 07/19/2022 [facility] Work Phone: Comment on above: Expected: 05/19/2022 , Expires: 07/19/2022 Start: 05-19-2022 End: 07-19-2022 Ferritin [Mass/volume] in Serum or Plasma FERRITIN BLD Lab Routine Iron deficiency anemia secondary to inadequate dietary iron intake Expected: 05/19/2022, Expires: 07/19/2022 [facility] Work Phone: Comment on above: Expected: 05/19/2022 , Expires: 07/19/2022 Start: 05-19-2022 End: 07-19-2022 Iron and Iron binding capacity panel - Serum or Plasma IRON + TIBC Lab Routine Iron deficiency anemia secondary to inadequate dietary iron intake Expected: 05/19/2022, Expires: 07/19/2022 [facility] Work Phone: Comment on above: Expected: 05/19/2022 , Expires: 07/19/2022 Start: 05-11-2022 DEPRESSION ASSESSMENT DEPRESSION ASS ESSMENT [facility] [place] Start: 01-09-2022 Influenza vaccination INFLUENZA (#1) [facility] [place] Start: 09-25-2021 FECAL OCCULT BLOOD FECAL OCCULT BLOO D [facility] [place] Start: 09-25-2021 Screening for malign ant neoplasm of colon Fecal Occult Blood [facility] [place] Start: 09-01-2021 COVID-19 VACCINE (4 - Booster for Moderna series) COVID-19 VACCINE (4 - Booster for Moderna series) [facility] [place] Start: 08-27-2021 Adult depression screening assessment DEPRESSION SCREENING [facility] [place] Start: 06-28-2021 COVID-19 VACCINE (4 - Booster for Moderna series) COVID-19 VACCINE (4 - Booster for Moderna series) [facility] [place] Start: 10-31-2016 End: 10-31-2016 Appointment Appointment [facility] Work Phone: Start: 08-20-2016 End: 09-08-2016 *BMP *BMP [facility] Work Phone: Start: 08-20-2016 End: 09-08-2016 aPTT *PTT-Partial Thromboplastin Time [facility] Work Phone: Start: 08-20-2016 End: 09-08-2016 aPTT Coag time (PPP) *PTT-Partial Thromboplastin Time [facility] Work Phone: Start: 08-20-2016 End: 09-08-2016 CBC W Auto Differential panel - Blood *CBC without Diff [facility] Work Phone: Start: 08-20-2016 End: 09-09-2016 Chest x-ray X-Ray, Chest, PA & Lateral [facility] Work Phone: Start: 08-20-2016 End: 09-08-2016 Coagulation factor induced.INR assay in platelet poor plasma *PT/INR [facility] Work Phone: Start: 08-20-2016 End: 10-10-2016 Electrocardiogram, complete EKG (In office) [facility] Work Phone: Start: 08-20-2016 End: 10-10-2016 Follow Up Appt 2 months Follow Up Appt 2 months [facility] Work Phone: Start: 08-20-2016 End: 09-04-2016 Left Heart Cath Left Heart Cath [facility] Work Phone: Start: 08-20-2016 End: 10-10-2016 MMM MMM [facility] Work Phone: Start: 2014 RSV Vaccine (1 - 1-d ose 60+ series) RSV Vaccine (1 - 1-dose 60+ series) [facility] [place] Start: 2004 SHINGRIX VACCINE (1 of 2) SHINGRIX VACCINE (1 of 2) [facility] [place] Start: 11-16-1999 COLOGUARD (FIT-DNA) COLOGUARD (FIT-D NA) [facility] [place] Start: 11-16-[address] COLONOGRAPHY [facility] Start: 11-16-1999 Screening for malign ant neoplasm of colon [facility] [place] Start: 11-16-1999 SIGMOIDOSCOPY SIGMOIDOSCOPY [facility] Start: 1984 Zoledronic acid therapy ALPHA- 1 ANTITRYPSIN DEFICIENCY SCREENING [facility] [place] Bacteria identified in Sputum by Respiratory culture [facility] COVID & INFLUENZA A/ B & RSV NAAT, ROUTINE COVID & INFLUENZA A/B & RSV NAAT, ROUTINE Microbiology Routine URI, acute 09/18/2023 3:35 PM EDT [facility] [place] COVID & INFLUENZA A/ B & RSV PCR, ROUTINE COVID & INFLUENZA A/B & RSV PCR, ROUTINE Microbiology Routine Acute cough Wheezing Ordered: 07/01/2024 [facility] Work Phone: Comment on above: Ordered: 07/01/2024 CT Chest WO contrast CT CHEST WO IVCON Radiology Routine Lung nodules 06/17/2024 9:11 AM EST [facility] Work Phone: End: 10-24-2022 ECG COMPLETE ECG COMPLETE ECG Routine 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 Exertional chest pain 1 Occurrences starting 10/24/2021 until 10/24/2022 [facility] Work Phone: Comment on above: 1 Occurrences starti ng 10/24/2021 until 10/24/2022 ECG COMPLETE [facility] Comment on above: Ordered: 09/18/2023 Ferritin [Mass/volum e] in Serum or Plasma [facility] Iron [Mass/mass] in Unspecified specimen [facility] Iron and Iron bindin g capacity panel - Serum or Plasma [facility] Iron saturation [Mas s Fraction] in Serum or Plasma [facility] Patient Education [facility] Work Phone: Patient referral [facility] Work Phone: End: 04-15-2023 PVR ANK PRESS [facility] PVR ANK PRESS [facility] Vascular Lab Routine Ingrowing toenail Diminished pulses in lower extremity 1 Occurrences starting 04/15/2022 until 04/15/2023 [facility] Work Phone: Comment on above: 1 Occurrences starti ng 04/15/2022 until 04/15/2023 Respiratory pathogen s DNA and RNA panel - Respiratory specimen by VALARIE with probe detection [facility] End: 05-27-2024 US ABD RIGHT UPPER QUADRANT US ABD RIGHT UPPER QUADRANT Radiology Routine Epigastric pain 1 Occurrences starting 04/28/2023 until 05/27/2024 [facility] Work Phone: Comment on above: 1 Occurrences starti ng 04/28/2023 until 05/27/2024 End: 06-15-2025 US Carotid arteries - bilateral US CAROTID ARTERIES [facility] Vascular Lab Routine Bilateral carotid artery disease, unspecified type (HCC) 1 Occurrences starting 06/15/2024 until 06/15/2025 [facility] Work Phone: Comment on above: 1 Occurrences starti ng 06/15/2024 until 06/15/2025 End: 10-17-2024 XR Chest PA and Lateral XR CHEST 2V FRONTAL/LAT Radiology Routine URI, acute 1 Occurrences starting 09/18/2023 until 10/17/2024 [facility] Work Phone: Comment on above: 1 Occurrences starti ng 09/18/2023 until 10/17/2024 XR Chest PA and Lateral XR CHEST 2V FRONTAL/LAT Radiology Routine URI, acute 09/18/2023 4:04 PM EDT [facility] [place] XR Foot - left AP an d Lateral and oblique XR FOOT GENERAL 3V AP/LAT/OBL LEFT Radiology Routine Pain 05/19/2024 10:25 AM EST [facility] Work Phone: [facility] Immunizations Immunization Date Immunization Notes Care Provider Manoj taylor 06-15-2024 influenza, high dose seasonal, preservative-free Andry Jean-Baptiste MD Work Phone: [facility] [place] 06-26-2023 zoster vaccine recombinant Teri Gross MD Work Phone: [facility] [place] 06-11-2023 tetanus toxoid, redu no diphtheria toxoid, and acellular pertussis vaccine, adsorbed Irma Perez PA-C Work Phone: [facility] [place] 06-10-2023 respiratory syncytia l virus (RSV) vaccine, adjuvanted (AREXVY) Ct (I-Stat) Work Phone: [facility] [place] 06-10-2023 tetanus toxoid, redu no diphtheria toxoid, and acellular pertussis vaccine, adsorbed Ct (I-Stat) Work Phone: [facility] [place] 04-14-2023 influenza (HD-IIV4) vaccine, age 65+ yr, high dose, quadrivalent, PF (FLUZONE HIGH-DOSE) Lew Bird APRN.COMPOSITION FLOOR SETTER Work Phone: [facility] [place] 04-14-2023 influenza virus vaccine, unspecified formulation Irma Perez PA-C Work Phone: [facility] [place] 03-21-2022 COVID-19 booster vaccine, age 12+ yr, bivalent (MODERNA) Srinath Summers Work Phone: [facility] [place] 03-07-2022 influenza, high-dose , quadrivalent vaccine (FLUZONE HIGH DOSE QUADRIVALENT) Andry Jean-Baptiste MD Work Phone: [facility] [place] 03-07-2022 influenza virus vaccine, unspecified formulation Andry Jean-Baptiste MD Work Phone: [facility] [place] 05-03-2021 COVID-19 vaccine, booster dose (MODERNA) Andry Jean-Baptiste MD Work Phone: [facility] [place] 03-04-2021 influenza, high-dose , quadrivalent vaccine (FLUZONE HIGH DOSE QUADRIVALENT) Andry Jean-Baptiste MD Work Phone: [facility] [place] 08-08-2020 COVID-19 vaccine, fu ll dose (MODERNA) Andry Jean-Baptiste MD Work Phone: [facility] [place] Work Phone: 07-12-2020 COVID-19 vaccine, fu ll dose (MODERNA) Andry Jean-Baptiste MD Work Phone: [facility] [place] Work Phone: 02-03-2020 influenza virus vaccine, unspecified formulation Andry Jean-Baptiste MD Work Phone: [facility] [place] 03-12-2018 influenza virus vaccine, unspecified formulation Andry Jean-Baptiste MD Work Phone: [facility] [place] 01-12-2013 tetanus toxoid, redu no diphtheria toxoid, and acellular pertussis vaccine, adsorbed Andry Jean-Baptiste MD Work Phone: [facility] [place] Payers Date Payer Category Payer Self-pay [id number] 2022 Medicare (Managed Care) [place] [id number] 2022 Medicare [id number] 2017 Medicare MEDICARE MEDICAR E A AND B [id number] 2017-Present [phone] [address] [address] [place] [address] Medicare [id number] 2017 Medicare [id number] 2014 Unknown [facility] GENERIC [id number] 2014-Present [phone] [address] [address] [place] [address] [id number] 2013 Unknown ANTHEM [id number] Medicare MEDICARE PART A B [id number] Unknown [id number] Unknown SELF INSURED [facility] OTHER [id number] Unknown [id number] Unknown [id number] Unknown [id number] Unknown [id number] Unknown [id number] Unknown [id number] Unknown [id number] Unknown [id number] Social History Date Type Detail Facility Start: 05-20-2021 End: 04-06-2024 Tobacco smoking status NHIS Ex-smoker [facility] [place] Start: [birth year]07-1969 End: 08-07-2001 History of tobacco use Current smoker [facility] [place] Start: 08-07-1968 End: 08-07-2001 History of tobacco use Cigarette Smoker [facility] [place] Start: 09-03-2021 End: 08-18-2024 Alcohol intake Current non-drinker of alcohol (finding) [facility] Start: 10-26-2019 End: 07-11-2022 History SDOH Alcohol Frequency 1 [facility] Start: 10-26-2019 History SDOH Alcohol Std Drinks 98 [facility] [place] Start: 01-12-2013 History SDOH Alcohol Comment no alcohol since before 1999 [facility] Start: 07-22-2019 End: 07-11-2022 History SDOH Social Connections Phone 5 [facility] Start: 07-22-2019 End: 07-11-2022 History SDOH Social Connections Get Together 2 [facility] Start: 07-22-2019 End: 07-11-2022 History SDOH Social Connections Bahai 3 [facility] Start: 07-22-2019 End: 07-11-2022 History SDOH Physical Activity DPW 0 [facility] Start: 07-22-2019 End: 07-11-2022 History SDOH Financial 4 [facility] Start: 07-21-2019 Education 10 [facility] [place] Start: 1955 Sex Assigned At Male [facility] Start: 08-24-2021 End: 03-07-2022 Exposure to SARS-CoV-2 (event) Not sure [facility] Start: 05-20-2021 End: 02-20-2023 Cigarettes smoked current (pack per day) - Reported 2 [facility] Start: 05-20-2021 End: 04-06-2024 Tobacco use and exposure Smokeless tobacco non-user [facility] Start: 09-24-2022 End: 09-20-2023 Tobacco smoking status NHIS Unknown if ever smoked [facility] Start: 10-24-2021 Sober [facility] Start: 10-24-2021 None [facility] Start: 10-24-2021 Non-smoker [facility] Start: 07-11-2022 End: 02-20-2023 Social connection and isolation panel [facility] [place] Do you belong to any clubs or organizations such as rastafari groups, unions, fraternal or athletic groups, or school groups? Yes [facility] Are you now , , , , never or living with a partner? [facility] How often to you hav e a drink containing alcohol? Never [facility] How many standard dr inks containing alcohol do you have on a typical day? Patient does not drink [facility] Do you feel stress - tense, restless, nervous, or anxious, or unable to sleep at night because your mind is troubled all the time - these days [OSQ] Only a little [facility] (I/We) worried wheth er (my/our) food would run out before (I/we) got money to buy more. Never true [facility] In the past 12 month s, was there a time when you were not able to pay the mortgage or rent on time? No [facility] Start: 08-13-2018 Gender identity Identifies as male gender (finding) [facility] Start: 08-13-2018 Sexual orientation Heterosexual (finding) [facility] How hard is it for y ou to pay for the very basics like food, housing, medical care, and heating Not very hard [facility] Do you feel stress - tense, restless, nervous, or anxious, or unable to sleep at night because your mind is troubled all the time - these days [OSQ] Not at all [facility] Goals Date Patient Goal Desired Activity /State Personal health goal Functional Status Date Assessment Result Facility 04-20-2019 Are you deaf, or do you have serious difficulty hearing No 04/20/2019 12:16 PM Yamila Davies RN No [facility] 04-20-2019 Are you blind, or do you have serious difficulty seeing, even when wearing glasses No 04/20/2019 12:16 PM Yamila Davies RN No [facility] 04-20-2019 Do you have serious difficulty walking or climbing stairs No 04/20/2019 12:16 PM Yamila Davies RN No [facility] 04-20-2019 Do you have difficul ty dressing or bathing No 04/20/2019 12:16 PM Yamila Davies RN No [facility] 04-20-2019 Because of a physica l, mental, or emotional condition, do you have difficulty doing errands alone such as visiting a physician's office or shopping No 04/20/2019 12:16 PM Yamila Davies RN No [facility] [place] Mental Status Date Assessment Result Facility 02-09-2023 Cognitive function Level Of Cons ciousness Awake;Alert;Appropriate;Fol lows Commands [facility] Work Phone: 09-02-2022 Cognitive function Level Of Cons ciousness Drowsy;Sedated [facility] Work Phone: 09-02-2022 Cognitive function Voice/Name [facility] Work Phone: 04-20-2019 Because of a physica l, mental, or emotional condition, do you have serious difficulty concentrating, remembering, or making decisions No 04/20/2019 12:16 PM Yamila Davies RN No [facility] Clinical Notes 01-13-2013 to 09-09-2024 Telephone Encounter - Jun Abbott MSW - 09/09/2024 12:13 PM EDTTelephone Encounter - Jun Abbott MSW - 09/09/2024 12:13 PM Teri Sosa MD - 09/09/2024 10:35 AM EDT Note Date & Type Note Facility 09-09-2024 Telephone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 obstruction 01/13/2013 documented as of this encounter (statuses as of 04/17/2023) [facility] [place] of Past illness Narrative* Problem Noted Date Diagnosed Date Resolved Date Hemorrhage of rectum and anus 01/13/2013 Diaphragmatic hernia with obstruction 01/13/2013 documented as of this encounter (statuses as of 04/29/2023) [facility] [place] History of Past illness Narrative* Problem Noted Date Diagnosed Date Resolved Date Hemorrhage of rectum and anus 01/13/2013 Diaphragmatic hernia with obstruction 01/13/2013 documented as of this encounter (statuses as of 05/01/2023) [facility] [place] of Past illness Narrative* Problem Noted Date Diagnosed Date Resolved Date Hemorrhage of rectum and anus 01/13/2013 Diaphragmatic hernia with obstruction 01/13/2013 documented as of this encounter (statuses as of 06/17/2023) [facility] [place] of Past illness Narrative* Problem Noted Date Diagnosed Date Resolved Date Hemorrhage of rectum and anus 01/13/2013 Diaphragmatic hernia with obstruction 01/13/2013 documented as of this encounter (statuses as of 06/18/2023) [facility] [place] History of Past illness Narrative* Problem Noted Date Diagnosed Date Resolved Date Hemorrhage of rectum and anus 01/13/2013 Diaphragmatic hernia with obstruction 01/13/2013 documented as of this encounter (statuses as of 06/22/2023) [facility] [place] History of Past illness Narrative* Problem Noted Date Diagnosed Date Resolved Date Hemorrhage of rectum and anus 01/13/2013 Diaphragmatic hernia with obstruction 01/13/2013 documented as of this encounter (statuses as of 07/23/2023) [facility] [place] History of Past illness Narrative* Problem Noted Date Diagnosed Date Resolved Date Hemorrhage of rectum and anus 01/13/2013 Diaphragmatic hernia with obstruction 01/13/2013 documented as of this encounter (statuses as of 08/17/2023) [facility] Diagnosis Bilateral carotid artery disease, unspecified type (HCC) documented [facility] this [facility]* Diagnosis 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- Primary Exertional chest pain Chest pain, unspecified Left hand pain Pain in limb Left-sided chest wall pain Painful respiration [facility] Diagnosis Iron deficiency anemia secondary to inadequate dietary iron intake- Primary Malabsorption syndrome Unspecified intestinal malabsorption [facility] Diagnosis Vitamin D deficiency Unspecified vitamin D deficiency [facility]* Diagnosis Medicare annual wellness visit, initial- Primary Routine general medical examination at a [facility] care facility Mixed hyperlipidemia 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 Intractable chronic migraine without aura and without status migrainosus Chronic migraine without aura, with intractable migraine, so stated, without mention of status migrainosus Elevated fasting blood sugar Impaired fasting glucose Bilateral carotid artery disease, unspecified type (HCC) GERD without esophagitis Esophageal reflux Pulmonary emphysema, unspecified emphysema type (HCC) Vitamin D deficiency Unspecified vitamin D deficiency Primary insomnia Persistent disorder of initiating or maintaining sleep [place] (obstructive sleep apnea) Obstructive sleep apnea (adult) (pediatric) Malabsorption syndrome Unspecified intestinal malabsorption Iron deficiency anemia secondary to inadequate dietary iron intake Living will in place Encounter for immunization Need for other specified prophylactic vaccination against single bacterial disease Nail problem Unspecified disease of nail [facility] Ingrowing toenail- Primary Ingrowing nail Nail problem Unspecified disease of nail Diminished pulses in lower extremity Other symptoms involving cardiovascular system Tinea pedis of both feet [facility] URI, acute- Primary Acute upper respiratory infections of unspecified site Non-recurrent acute suppurative otitis media of right ear without spontaneous rupture of tympanic membrane [facility] Diagnosis Bronchitis- Primary Bronchitis, not specified as acute or chronic Advance directive discussed with patient Other specified counseling Pulmonary emphysema, unspecified emphysema type (HCC) [facility] Iron deficiency anemia secondary to inadequate dietary iron intake- Primary [facility] Iron deficiency anemia secondary to inadequate dietary iron intake- Primary Malabsorption syndrome Unspecified intestinal malabsorption [facility] note* Diagnosis Iron deficiency anemia secondary to inadequate dietary iron intake- [facility] Malabsorption syndrome- Primary Unspecified intestinal malabsorption [facility] Diagnosis Oral polyp- Primary [facility] Diagnosis Mixed hyperlipidemia- Primary 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 Pulmonary emphysema, unspecified emphysema type (HCC) [place] (obstructive sleep apnea) Obstructive sleep apnea (adult) (pediatric) GERD without esophagitis Esophageal reflux Elevated fasting blood sugar Impaired fasting glucose Bilateral carotid artery disease, unspecified type (HCC) Vitamin D deficiency Unspecified vitamin D deficiency History of gastric bypass Bariatric surgery status Prostate disorder Unspecified disorder of prostate Medication management Encounter for long-term (current) use of other medications [facility] Diagnosis Eczema, unspecified type- Primary documented in this encounter [facility]* Diagnosis Onset Date Resolution Status Abdominal discomfort chronic Abdominal discomfort chronic Difficulty swallowing [facility] Work Phone: Evaluation note* Diagnosis Vitamin D deficiency Unspecified vitamin D deficiency documented in this encounter [facility]* Diagnosis Eczema, unspecified type [facility] Diagnosis Pneumonia of right lung due to infectious organism, unspecified part of lung- Primary documented in this encounter [facility]* Diagnosis Community acquired pneumonia, unspecified laterality- Primary Pulmonary emphysema, unspecified emphysema type (HCC) [facility] noteNo assessment [facility] Work Phone: Evaluation note* Diagnosis Chronic obstructive pulmonary disease, unspecified COPD type (HCC)- Primary Encounter for immunization Need for other specified prophylactic vaccination against single bacterial disease documented [facility] this [facility]* Diagnosis Chronic obstructive pulmonary disease, unspecified COPD type (HCC) documented in this encounter [facility]* Diagnosis Asthma-COPD overlap syndrome- Primary Former cigarette smoker Personal history of tobacco use, presenting hazards to health Ground glass opacity present on imaging of lung documented [facility] this [facility]* Diagnosis URI, acute- Primary Acute upper respiratory infections of unspecified site SOB (shortness of breath) Shortness of breath Epigastric pain Abdominal pain, epigastric Left-sided chest pain documented [facility] this [facility]* Diagnosis Asthma-COPD overlap syndrome (HCC)- Primary Lung nodules Other nonspecific abnormal finding of lung field Granulomatous disease (HCC) Functional disorders of polymorphonuclear neutrophils Former cigarette smoker Personal history of tobacco use, presenting hazards to health [facility]* Diagnosis Eczema, unspecified type [facility]* Diagnosis URI, acute- Primary Acute upper respiratory infections of unspecified site Chronic obstructive pulmonary disease, unspecified COPD type (HCC) documented in this encounter [facility]* Diagnosis Onset Date Resolution Status Hypoxemia acute Respiratory failure acute COPD exacerbation chronic [facility] Work Phone: Evaluation note* Diagnosis COPD exacerbation (HCC)- Primary Obstructive chronic bronchitis with exacerbation Pulmonary emphysema, unspecified emphysema type (HCC) Angular cheilitis Diseases of lips documented [facility] this encounter [facility]* Diagnosis Asthma-COPD overlap syndrome (HCC)- Primary Lung nodules Other nonspecific abnormal finding of lung field Granulomatous disease (HCC) Functional disorders of polymorphonuclear neutrophils Former cigarette smoker Personal history of tobacco use, presenting hazards to health documented [facility] this [facility] Diagnosis Mixed hyperlipidemia- Primary Screening for depression Encounter for screening examination for other mental health and behavioral disorders 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 [place] (obstructive sleep apnea) Obstructive sleep apnea (adult) (pediatric) Pulmonary emphysema, unspecified emphysema type (HCC) Iron deficiency anemia secondary to inadequate dietary iron intake Elevated fasting blood sugar Impaired fasting glucose Primary insomnia Persistent disorder of initiating or maintaining sleep Chronic post-traumatic headache, not intractable Chronic post-traumatic headache Vitamin D deficiency Unspecified vitamin D deficiency History of gastric bypass Bariatric surgery status Medication management Encounter for long-term (current) use of other medications Malabsorption syndrome Unspecified intestinal malabsorption GERD without esophagitis Esophageal reflux Bilateral carotid artery disease, unspecified type (HCC) Prostate disorder Unspecified disorder of prostate documented in this [facility]* Diagnosis Vitamin D deficiency Unspecified vitamin D deficiency documented in this [facility]* Diagnosis URI, acute Acute upper respiratory infections of unspecified site documented in this encounter [facility]* Diagnosis URI, acute Acute upper respiratory infections of unspecified site SOB (shortness of breath) Shortness of breath documented in this [facility] Diagnosis Left-sided chest wall pain Painful respiration documented [facility] this [facility]* Diagnosis Pulmonary emphysema, unspecified emphysema type (HCC) documented in this encounter [facility]* Diagnosis Nocturnal leg cramps- Primary Sleep related leg cramps Encounter for immunization Need for other specified prophylactic vaccination against single bacterial disease documented in this encounter [facility]* Diagnosis Eczema, unspecified type documented in this encounter [facility]* Diagnosis 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 documented in this encounter [facility]* Diagnosis Lung nodules- Primary Other nonspecific abnormal finding of lung field documented in this encounter [facility]* Diagnosis Plantar fasciitis- Primary Plantar fascial fibromatosis documented in this encounter [facility]* Diagnosis Eczema, unspecified type documented in this encounter [facility]* Diagnosis Pain Generalized pain [facility] Diagnosis Pulmonary emphysema, unspecified emphysema type (HCC) documented in this encounter [facility]* Diagnosis Encounter for Medicare annual wellness exam- Primary Routine general medical examination at a health care facility Mixed hyperlipidemia Elevated fasting blood sugar Impaired fasting glucose GERD without esophagitis Esophageal reflux 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 Bilateral carotid artery disease, unspecified type (HCC) Intractable chronic migraine without aura and without status migrainosus Chronic migraine without aura, with intractable migraine, so stated, without mention of status migrainosus Pulmonary emphysema, unspecified emphysema type (HCC) Iron deficiency anemia secondary to inadequate dietary iron intake Primary insomnia Persistent disorder of initiating or maintaining sleep Vitamin D deficiency Unspecified vitamin D deficiency Low zinc level Advance directive discussed with patient Other specified counseling Need for vaccination Need for prophylactic vaccination and inoculation against unspecified single disease documented in this encounter [facility]* Diagnosis Lung nodules Other nonspecific abnormal finding of lung field documented in this encounter [facility]* Diagnosis Pneumonia of right upper lobe due to infectious organism- Primary [facility] Diagnosis Acute cough- Primary Wheezing Acute cough Wheezing documented in this encounter [facility]* Diagnosis Acute cough Wheezing documented in this encounter [facility]* Diagnosis Intractable chronic migraine without aura and without status migrainosus- Primary Chronic migraine without aura, with intractable migraine, so stated, without mention of status migrainosus Asthma-COPD overlap syndrome (HCC) 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 Pulmonary emphysema, unspecified emphysema type (HCC) [place] (obstructive sleep apnea) Obstructive sleep apnea (adult) (pediatric) GERD without esophagitis Esophageal reflux Migraine without aura, intractable, without status migrainosus documented in this encounter [facility]* Diagnosis Asthma-COPD overlap syndrome (HCC)- Primary Lung nodules Other nonspecific abnormal finding of lung field Former cigarette smoker Personal history of tobacco use, presenting hazards to health Granulomatous disease (HCC) Functional disorders of polymorphonuclear neutrophils documented in this encounter [facility]* Diagnosis Contusion of right upper arm, initial encounter- Primary documented in this encounter [facility]* Diagnosis Asthma with COPD with exacerbation (HCC)- Primary Chronic obstructive asthma with exacerbation Acute bronchitis, unspecified organism Former cigarette smoker Personal history of tobacco use, presenting hazards to health [facility] this [facility] Outpatient Procedure (Routine) - Pending Review Specialty Diagnoses / Procedures Referred By Contac t [facility]erred [facility] Diagnoses 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 Exertional chest pain Procedures ECG COMPLETE ECG ROUTINE ECG W/LEAST 12 LDS W/I&[place] [address] [place] [address] [facility] [place] [address] [place] [address] Referral ID Status Reason Start Date Expiration Date Visits Requested Visits Authorized [id number] Pending Review Auto-Generat ed Referral 10/24/2021 10/24/2022 1 1 * Consult, Test, Treat (Routine) - Authorized Specialty Diagnoses / Procedures Referred By Tamekaac t Referred To Contact Cardiology Diagnoses 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 Exertional chest pain Procedures CONSULT TO CARDIOLOGY OFFICE/OUTPATIENT [facility] 60-74 MINUTES Andry Jean-Baptiste MD [address] [place] [address] Referral ID Status Reason Start Date Expiration Date Visits Requested Visits Authorized [id number] Authorized PCP Requested Referral 10/24/2021 10/24/2022 1 1 * Consult, Test, Treat (Routine) - Authorized Specialty Diagnoses / Procedures Referred By Contac t Referred To Contact Orthopedics Diagnoses Left hand pain Procedures CONSULT TO ORTHOPAEDICS OFFICE/OUTPATIENT [facility] 60-74 MINUTES Andry Jean-Baptiste MD [address] [place] [address] Referral ID Status Reason Start Date Expiration Date Visits Requested Visits Authorized [id number] Authorized PCP Requested Referral 10/24/2021 10/24/2022 1 1 * Diagnostic Procedure Only (Routine) - Closed Specialty Diagnoses / Procedures Referred By Contac t Referred To Contact XR IMAGING Diagnoses Left-sided chest wall pain Procedures XR RIBS/CHEST 3V AP RIB/OBLS/CXR LEFT RADEX RIBS UNI W/POSTEROANT CH MINIMUM 3 VIEWS Andry Jean-Baptiste MD [address] [place] [address] Xr Imaging Referral ID Status Reason Start Date Expiration Date V isits Requested Visits Authorized [id number] Closed Auto-Generate d Referral 10/24/2021 11/23/2022 1 1 [facility] for referral (narrative)* Outpatient Procedure (Routine) - Authorized Specialty Diagnoses / Procedures Referred By Contac t Referred [facility] Diagnoses Ingrowing toenail Diminished pulses in lower extremity Procedures PVR ANK PRESS RAQUEL VAS LAB NON-INVAS PHYSIOLOGIC STD EXTREMITY ART 2 LEVEL Srinath uSmmers [address] [place] [address] [facility] [place] [address] [place] [address] Referral ID Status Reason Start Date Expiration Date Visits Requested Visits Authorized [id number] Authorized Auto-Generat ed Referral 04/15/2022 04/15/2023 1 1 [facility] for referral (narrative)* Diagnostic Procedure Only (Routine) - Authorized Specialty Diagnoses / Procedures Referred By Contac t Referred To Contact US IMAGING Diagnoses Epigastric pain Procedures US ABD RIGHT UPPER QUADRANT US ABDOMINAL REAL TIME W/IMAGE LIMITED Andry Jean-Baptiste MD [address] [place] [address] [id number] Referral ID Status Reason Start Date Expiration Date Visits Requested Visits Authorized [id number] Authorized Auto-Generat ed Referral 3 05/27/2024 1 1 [facility] for referral (narrative)* Outpatient Procedure (Routine) - Pending Review Specialty Diagnoses / Procedures Referred By Contac t Referred To Contact [facility] Diagnoses URI, acute Procedures ECG COMPLETE ECG ROUTINE ECG W/LEAST 12 LDS W/I&R Lew Bird APRN.[employer]TER [address] [place] [address] [facility] [address] [address] Referral ID Status Reason Start Date Expiration Date Visits Requested Visits Authorized [id number] Pending Review Auto-Generat ed Referral 09/18/2023 09/17/2024 1 1 [facility] for referral (narrative)* Diagnostic Procedure Only (Routine) - Closed Specialty Diagnoses / Procedures Referred By Contac t Referred To Contact XR IMAGING Diagnoses Left-sided chest wall pain Procedures XR RIBS/CHEST 3V AP RIB/OBLS/CXR LEFT RADEX RIBS UNI W/POSTEROANT CH MINIMUM 3 VIEWS Andry Jean-Baptiste MD [address] [place] [address] [place] [address] Referral ID Status Reason Start Date Expiration Date V isits Requested Visits Authorized [id number] Closed Auto-Generate d Referral 10/24/2021 11/23/2022 1 1 [facility] for referral (narrative)* Outpatient Procedure (Routine) - Authorized Specialty Diagnoses / Procedures Referred By Contac t Referred To Contact [facility] Diagnoses Bilateral carotid artery disease, unspecified type (HCC) Procedures US CAROTID ARTERIES RAQUEL VAS LAB DUPLEX SCAN EXTRACRANIAL ART COMPL BI STUDY Andry Jean-Baptiste MD [address] [place] [address] [facility] [place] [address] [place] [address] Referral ID Status Reason Start Date Expiration Date Visits Requested Visits Authorized [id number] Authorized Auto-Generat ed Referral 06/15/2024 06/15/2025 1 1 [facility] for visit Narrative* Diagnostic Procedure Only (Routine) - Closed Specialty Diagnoses / Procedures Referred By Contac t Referred To Contact XR IMAGING Diagnoses Left-sided chest wall pain Procedures XR RIBS/CHEST 3V AP RIB/OBLS/CXR LEFT RADEX RIBS UNI W/POSTEROANT CH MINIMUM 3 VIEWS Andry Jean-Baptiste MD [address] [place] [address] [place] [address] Referral ID Status Reason Start Date Expiration Date V isits Requested Visits Authorized [id number] Closed Auto-Generate d Referral 10/24/2021 11/23/2022 1 1 [facility] for visit Narrative* Diagnostic Procedure Only (Routine) - Closed Specialty Diagnoses / Procedures Referred By Contac t Referred To Contact XR IMAGING Diagnoses Pain Procedures XR FOOT GENERAL 3V AP/LAT/OBL LEFT RADEX FOOT COMPLETE MINIMUM 3 VIEWS Srinath Summers [address] [address] [place] [address] Referral ID Status Reason Start Date Expiration Date V isits Requested Visits Authorized [id number] Closed Auto-Generate d Referral 04/19/2024 05/19/2025 1 1 [facility] Summary Purpose Family History No Family History Records Found Relationship Condition Age at Onset Recorded Date/T trav mother Diabetes mellitus Unknown Congestive heart failure Unknown Hypertension Unknown Malignant neoplasm of colon Unknown father Malignant neoplasm Unknown sister Malignant neoplasm of colon Unknown brother Chronic obstructive pulmonary disease Unk nown Diabetes mellitus Unknown Malignant neoplasm Unknown Advance Directives No Advanced Directives Records FoundDocuments on File Type Date Recorded Patient Ham Stripper Expl anation Advance Directive(s) 10/23/2020 11:55 AM Advance Directive(s) 10/05/2020 3:55 PM Advance Directive(s) 04/18/2019 5:45 AM Advance Directive(s) 10/25/2018 9:52 AM Advance Directive(s) 09/01/2018 8:41 AM Advance Directive(s) 07/06/2018 8:22 AM Documents on File Type Date Recorded Patient Ham Stripper Expl anation Advance Directive(s) 10/08/2021 12:26 PM Advance Directive(s) 10/23/2020 11:55 AM Advance Directive(s) 10/05/2020 3:55 PM Advance Directive(s) 04/18/2019 5:45 AM Advance Directive(s) 10/25/2018 9:52 AM Advance Directive(s) 09/01/2018 8:41 AM Advance Directive(s) 07/06/2018 8:22 AM Documents on File Type Date Recorded Patient Ham Stripper Expl anation Advance Directive(s) 10/08/2021 12:26 PM Advance Directive(s) 10/23/2020 11:55 AM Advance Directive(s) 10/05/2020 3:55 PM Advance Directive(s) 04/18/2019 5:45 AM Advance Directive(s) 10/25/2018 9:52 AM Advance Directive(s) 09/01/2018 8:41 AM Advance Directive(s) 07/06/2018 8:22 AM Documents on File Type Date Recorded Patient Ham Stripper Expl anation Advance Directive(s) 10/08/2021 12:26 PM Documents on File Type Date Recorded Patient Ham Stripper Expl anation Advance Directive(s) 10/08/2021 12:26 PM Advance Directive Response Recorded Date/ Time Name of Medical Power of Drill Bit Sharpener August 28, 2022 12:06pm Advance Directives Yes October 28 11:13am Living Will Yes August 28, 2022 12:06pm Power of Drill Bit Sharpener Yes August 28 12:06pm Advance Directive Response Recorded Date/ Time Name of Medical Power of Drill Bit Sharpener February 09, 2023 12:31pm Name of Medical Power of Drill Bit Sharpener March 20, 2023 12:33pm Advance Directives Yes October 28 10:13am Living Will Yes March 20 12:33pm Power of Drill Bit Sharpener Yes March 20, 2023 12:33pm Advance Directive Response Recorded Date/ Time Name of Medical Power of Drill Bit Sharpener February 09, 2023 12:31pm Name of Medical Power of Drill Bit Sharpener March 20, 2023 12:33pm Advance Directives Yes October 28 10:13am Living Will No May 18 1:21pm Power of Drill Bit Sharpener No May 18, 024 1:21pm Advance Directive Response Recorded Date/ Time Name of Medical Power of Drill Bit Sharpener March 20, 2023 12:33pm Advance Directives Yes October 28 10:13am Living Will No May 18 1:21pm Power of Drill Bit Sharpener No May 18 2 024 1:21pm Advance Directive Response Recorded Date/ Time Advance Directives Yes October 28 11:13am Living Will No September 20, 2023 1 :15pm Power of Drill Bit Sharpener No September 20, 2023 1:15pm Reason for Referral Specialty Diagnoses / Procedures Referred By Contac t Referred To Contact Podiatry Diagnoses Nail problem Procedures CONSULT TO PODIATRY OFFICE/OUTPATIENT [facility] 60-[place] [address] [place] [address] Referral ID Status Reason Start Date Expiration Date Visits Requested Visits Authorized [id number] Authorized PCP Requested Referral 2 03/07/2023 1 1 Specialty Diagnoses / Procedures Referred By Conttamy t [place] [address] [place] [address] Referral ID Status Reason Start Date Expiration Date Visits Re quested Visits Authorized [id number] Closed 1 1 Referral ID Status Reason Start Date Expiration Date Visits Re quested Visits Authorized [id number] Closed 1 1 Specialty Diagnoses / Procedures Referred By Contac t Referred To Contact Gastroenterology Diagnoses Malabsorption syndrome Procedures CONSULT TO GASTROENTEROLOGY Lew Bird APRN.[facility] [address] [place] [id number] Friend, Jason Londono, [address] [address] Referral ID Status Reason Start Date Expiration Date Visits Requested Visits Authorized [id number] Ref Not Required PCP Requested Referral 06/23/2022 06/23/2023 1 1 Specialty Diagnoses / Procedures Referred By Contac t Referred To Contact Ent - Otolaryngology Diagnoses Oral polyp Procedures CONSULT TO [facility] OFFICE[facility] 60-74 MINUTES Lew Bird APRN.[employer] FLOOR SETTER [address] [place] [address] Referral ID Status Reason Start Date Expiration Date Visits Requested Visits Authorized [id number] Authorized PCP Requested Referral 07/14/2022 07/14/2023 1 1 Specialty Diagnoses / Procedures Referred By Contac t Referred To Contact Diagnoses Pulmonary emphysema, unspecified emphysema type (HCC) Lew Bird APRN.[employer] FLOOR SETTER [address] [place] [address] Referral ID Status Reason Start Date Expiration Date Visits Re quested Visits Authorized [id number] Closed 1 1 Specialty Diagnoses / Procedures Referred By Contac t Referred To Contact CT IMAGING Diagnoses Pneumonia of right lung due to infectious organism, unspecified part of lung Procedures CT CHEST WO IVCON DIAGNOSTIC COMPUTED TOMOGRAPHY THORAX W/O CNTRST Teri Gross MD [address] [place] [address] Ct Imaging [id number] Referral ID Status Reason Start Date Expiration Date Visits Requested Visits Authorized [id number] Pending Review Auto-Generat ed Referral 06/15/2023 05/15/2024 1 1 Specialty Diagnoses / Procedures Referred By Contac t Referred To Contact [facility] Diagnoses Chronic obstructive pulmonary disease, unspecified COPD type (HCC) Procedures LUNG DIFFUSION CAPACITY (DLCO) DIFFUSING CAPACITY Teri Gross MD [address] [place] [address] Respiratory [place] [address] [place] [address] Referral ID Status Reason Start Date Expiration Date V isits Requested Visits Authorized [id number] Closed Auto-Generate d Referral 04/16/2023 05/15/2024 1 1 Specialty Diagnoses / Procedures Referred By Contac t Referred To Contact [facility] Diagnoses Chronic obstructive pulmonary disease, unspecified COPD type (HCC) Procedures SPIROMETRY WITH DILATOR IF OBSTRUCTED BRNCDILAT RSPSE SPMTRY PRE&POST-BRNCDILAT Teri Vang MD [address] [place] [address] Res[facility] [place] [address] [facility] [place] [place] [address] Referral ID Status Reason Start Date Expiration Date V isits Requested Visits Authorized [id number] Closed Auto-Generate d Referral 04/16/2023 05/15/2024 1 1 Referral ID Status Reason Start Date Expiration Date V isits Requested Visits Authorized [id number] Closed Auto-Generate d Referral 06/16/2023 07/16/2023 1 1 Specialty Diagnoses / Procedures Referred By Contac t Referred To Contact CT IMAGING Diagnoses Lung nodules Procedures CT CHEST WO IVCON DIAGNOSTIC COMPUTED TOMOGRAPHY THORAX W/O Maria De Jesus Peña PA-C [address] [place] [address] [id number] Referral ID Status Reason Start Date Expiration Date Visits Requested Visits Authorized [id number] Pending Review Auto-Generat ed Referral 06/13/2024 11/12/2024 1 1 Specialty Diagnoses / Procedures Referred By Contac t Referred To Contact CT IMAGING Diagnoses Lung nodules Procedures CT CHEST WO IVCON DIAGNOSTIC COMPUTED TOMOGRAPHY THORAX W/O Teri Jara MD [address] [place] [address] [place] [address] Referral ID Status Reason Start Date Expiration Date Visits Requested Visits Authorized [id number] New Request Auto-Generat ed Referral 06/20/2024 06/16/2025 1 1 Health Concerns Infection Onset Date Last Indicated Resolved Time COVID-19 Rule-Out 05/01/2022 05/01/2022 05/02/2022 4:15 AM EST Infection Onset Date Last Indicated Resolved Time COVID-19 Rule-Out 05/01/2022 05/01/2022 05/02/2022 4:15 AM EST COVID-19 Confirmed 05/01/2022 05/01/2022 8:51 PM EST Infection Onset Date Last Indicated Resolved Time COVID-19 Confirmed 03/12/2023 03/12/2023 Chief Complaint and Reason for Visit Chief Complaint Consult CHEST AND ABDOMINAL 2 WK FU Cough Reason for Visit Abdominal discomfort Abdominal discomfort Difficulty swallowing Chief Complaint ABDOMINAL PAIN SOB Chief Complaint ABDOMINAL PAIN SOB cough Chief Complaint SOB cough Chief Complaint COPD EXACERBATION Reason for Visit Hypoxemia Respiratory failure COPD exacerbation Additional Source Comments (unrecognized sect ion and content) No Status Records FoundNo Status Records FoundNo Status Records FoundNo Status Records FoundNo Status Records FoundNo Status Records Found INFORMATION SOURCE (unrecogn ized section and content) DATE CREATED AUTHOR 11/03/2017 [facility] DATE CREATED AUTHOR AUTHOR'S ORGANIZ ATION 10/27/2019 [facility] DATE CREATED AUTHOR AUTHOR'S ORGANIZ ATION 05/01/2023 [facility] DATE CREATED AUTHOR AUTHOR'S ORGANIZ ATION 06/23/2023 [facility] DATE CREATED AUTHOR AUTHOR'S ORGANIZ ATION 07/25/2024 [facility] DATE CREATED AUTHOR AUTHOR'S ORGANIZ ATION 09/14/2024 [facility] Source Comments (unrecognize d section and content) In the event this informatio n is protected by the Federal Confidentiality of Alcohol and Drug Abuse Patient Records regulations: The Federal rules restrict any use of the information to criminally investigate or prosecute any alcohol or drug abuse patient.[facility] [place] the event this information is protected by the Federal Confidentiality of Alcohol and Drug Abuse Patient Records regulations: The Federal rules restrict any use of the information to criminally investigate or prosecute any alcohol or drug abuse patient.[facility], [place]In the event this information is protected by the Federal Confidentiality of Alcohol and Drug Abuse Patient Records regulations: The Federal rules restrict any use of the information to criminally investigate or prosecute any alcohol or drug abuse patient.[facility], [place]In the event this information is protected by the Federal Confidentiality of Alcohol and Drug Abuse Patient Records regulations: The Federal rules restrict any use of the information to criminally investigate or prosecute any alcohol or drug abuse patient.[facility], [place]In the event this information is protected by the Federal Confidentiality of Alcohol and Drug Abuse Patient Records regulations: The Federal rules restrict any use of the information to criminally investigate or prosecute any alcohol or drug abuse patient.[facility], [place]In the event this information is protected by the Federal Confidentiality of Alcohol and Drug Abuse Patient Records regulations: The Federal rules restrict any use of the information to criminally investigate or prosecute any alcohol or drug abuse patient.[facility], [place]In the event this information is protected by the Federal Confidentiality of Alcohol and Drug Abuse Patient Records regulations: The Federal rules restrict any use of the information to criminally investigate or prosecute any alcohol or drug abuse patient.[facility], [place]In the event this information is protected by the Federal Confidentiality of Alcohol and Drug Abuse Patient Records regulations: The Federal rules restrict any use of the information to criminally investigate or prosecute any alcohol or drug abuse patient.[facility], [place]In the event this information is protected by the Federal Confidentiality of Alcohol and Drug Abuse Patient Records regulations: The Federal rules restrict any use of the information to criminally investigate or prosecute any alcohol or drug abuse patient.[facility], [place]In the event this information is protected by the Federal Confidentiality of Alcohol and Drug Abuse Patient Records regulations: The Federal rules restrict any use of the information to criminally investigate or prosecute any alcohol or drug abuse patient.[facility], [place]In the event this information is protected by the Federal Confidentiality of Alcohol and Drug Abuse Patient Records regulations: The Federal rules restrict any use of the information to criminally investigate or prosecute any alcohol or drug abuse patient.[facility], [place]In the event this information is protected by the Federal Confidentiality of Alcohol and Drug Abuse Patient Records regulations: The Federal rules restrict any use of the information to criminally investigate or prosecute any alcohol or drug abuse patient.[facility], [place]In the event this information is protected by the Federal Confidentiality of Alcohol and Drug Abuse Patient Records regulations: The Federal rules restrict any use of the information to criminally investigate or prosecute any alcohol or drug abuse patient.[facility], [place]In the event this information is protected by the Federal Confidentiality of Alcohol and Drug Abuse Patient Records regulations: The Federal rules restrict any use of the information to criminally investigate or prosecute any alcohol or drug abuse patient.[facility], [place]In the event this information is protected by the Federal Confidentiality of Alcohol and Drug Abuse Patient Records regulations: The Federal rules restrict any use of the information to criminally investigate or prosecute any alcohol or drug abuse patient.[facility], [place]In the event this information is protected by the Federal Confidentiality of Alcohol and Drug Abuse Patient Records regulations: The Federal rules restrict any use of the information to criminally investigate or prosecute any alcohol or drug abuse patient.[facility], [place]In the event this information is protected by the Federal Confidentiality of Alcohol and Drug Abuse Patient Records regulations: The Federal rules restrict any use of the information to criminally investigate or prosecute any alcohol or drug abuse patient.[facility], [place]In the event this information is protected by the Federal Confidentiality of Alcohol and Drug Abuse Patient Records regulations: The Federal rules restrict any use of the information to criminally investigate or prosecute any alcohol or drug abuse patient.[facility], [place]In the event this information is protected by the Federal Confidentiality of Alcohol and Drug Abuse Patient Records regulations: The Federal rules restrict any use of the information to criminally investigate or prosecute any alcohol or drug abuse patient.[facility], [place]In the event this information is protected by the Federal Confidentiality of Alcohol and Drug Abuse Patient Records regulations: The Federal rules restrict any use of the information to criminally investigate or prosecute any alcohol or drug abuse patient.[facility], [place]In the event this information is protected by the Federal Confidentiality of Alcohol and Drug Abuse Patient Records regulations: The Federal rules restrict any use of the information to criminally investigate or prosecute any alcohol or drug abuse patient.[facility], [place]In the event this information is protected by the Federal Confidentiality of Alcohol and Drug Abuse Patient Records regulations: The Federal rules restrict any use of the information to criminally investigate or prosecute any alcohol or drug abuse patient.[facility], [place]In the event this information is protected by the Federal Confidentiality of Alcohol and Drug Abuse Patient Records regulations: The Federal rules restrict any use of the information to criminally investigate or prosecute any alcohol or drug abuse patient.[facility], [place]In the event this information is protected by the Federal Confidentiality of Alcohol and Drug Abuse Patient Records regulations: The Federal rules restrict any use of the information to criminally investigate or prosecute any alcohol or drug abuse patient.[facility], [place]In the event this information is protected by the Federal Confidentiality of Alcohol and Drug Abuse Patient Records regulations: The Federal rules restrict any use of the information to criminally investigate or prosecute any alcohol or drug abuse patient.[facility] ClinicIn the event this information is protected by the Federal Confidentiality of Alcohol and Drug Abuse Patient Records regulations: The Federal rules restrict any use of the information to criminally investigate or prosecute any alcohol or drug abuse patient.[facility], [place]In the event this information is protected by the Federal Confidentiality of Alcohol and Drug Abuse Patient Records regulations: The Federal rules restrict any use of the information to criminally investigate or prosecute any alcohol or drug abuse patient.[facility], [place]In the event this information is protected by the Federal Confidentiality of Alcohol and Drug Abuse Patient Records regulations: The Federal rules restrict any use of the information to criminally investigate or prosecute any alcohol or drug abuse patient.[facility], [place]In the event this information is protected by the Federal Confidentiality of Alcohol and Drug Abuse Patient Records regulations: The Federal rules restrict any use of the information to criminally investigate or prosecute any alcohol or drug abuse patient.[facility], [place]In the event this information is protected by the Federal Confidentiality of Alcohol and Drug Abuse Patient Records regulations: The Federal rules restrict any use of the information to criminally investigate or prosecute any alcohol or drug abuse patient.[facility], [place]In the event this information is protected by the Federal Confidentiality of Alcohol and Drug Abuse Patient Records regulations: The Federal rules restrict any use of the information to criminally investigate or prosecute any alcohol or drug abuse patient.[facility], [place]In the event this information is protected by the Federal Confidentiality of Alcohol and Drug Abuse Patient Records regulations: The Federal rules restrict any use of the information to criminally investigate or prosecute any alcohol or drug abuse patient.[facility], [place]In the event this information is protected by the Federal Confidentiality of Alcohol and Drug Abuse Patient Records regulations: The Federal rules restrict any use of the information to criminally investigate or prosecute any alcohol or drug abuse patient.[facility], [place]In the event this information is protected by the Federal Confidentiality of Alcohol and Drug Abuse Patient Records regulations: The Federal rules restrict any use of the information to criminally investigate or prosecute any alcohol or drug abuse patient.[facility], [place]In the event this information is protected by the Federal Confidentiality of Alcohol and Drug Abuse Patient Records regulations: The Federal rules restrict any use of the information to criminally investigate or prosecute any alcohol or drug abuse patient.[facility], [place]In the event this information is protected by the Federal Confidentiality of Alcohol and Drug Abuse Patient Records regulations: The Federal rules restrict any use of the information to criminally investigate or prosecute any alcohol or drug abuse patient.[facility], [place]In the event this information is protected by the Federal Confidentiality of Alcohol and Drug Abuse Patient Records regulations: The Federal rules restrict any use of the information to criminally investigate or prosecute any alcohol or drug abuse patient.[facility], [place]In the event this information is protected by the Federal Confidentiality of Alcohol and Drug Abuse Patient Records regulations: The Federal rules restrict any use of the information to criminally investigate or prosecute any alcohol or drug abuse patient.[facility], [place]In the event this information is protected by the Federal Confidentiality of Alcohol and Drug Abuse Patient Records regulations: The Federal rules restrict any use of the information to criminally investigate or prosecute any alcohol or drug abuse patient.[facility], [place]In the event this information is protected by the Federal Confidentiality of Alcohol and Drug Abuse Patient Records regulations: The Federal rules restrict any use of the information to criminally investigate or prosecute any alcohol or drug abuse patient.[facility], [place]In the event this information is protected by the Federal Confidentiality of Alcohol and Drug Abuse Patient Records regulations: The Federal rules restrict any use of the information to criminally investigate or prosecute any alcohol or drug abuse patient.[facility], [place]In the event this information is protected by the Federal Confidentiality of Alcohol and Drug Abuse Patient Records regulations: The Federal rules restrict any use of the information to criminally investigate or prosecute any alcohol or drug abuse patient.[facility], [place]In the event this information is protected by the Federal Confidentiality of Alcohol and Drug Abuse Patient Records regulations: The Federal rules restrict any use of the information to criminally investigate or prosecute any alcohol or drug abuse patient.[facility], [place]In the event this information is protected by the Federal Confidentiality of Alcohol and Drug Abuse Patient Records regulations: The Federal rules restrict any use of the information to criminally investigate or prosecute any alcohol or drug abuse patient.[facility], [place]In the event this information is protected by the Federal Confidentiality of Alcohol and Drug Abuse Patient Records regulations: The Federal rules restrict any use of the information to criminally investigate or prosecute any alcohol or drug abuse patient.[facility], [place]In the event this information is protected by the Federal Confidentiality of Alcohol and Drug Abuse Patient Records regulations: The Federal rules restrict any use of the information to criminally investigate or prosecute any alcohol or drug abuse patient.[facility], [place]In the event this information is protected by the Federal Confidentiality of Alcohol and Drug Abuse Patient Records regulations: The Federal rules restrict any use of the information to criminally investigate or prosecute any alcohol or drug abuse patient.[facility], [place]In the event this information is protected by the Federal Confidentiality of Alcohol and Drug Abuse Patient Records regulations: The Federal rules restrict any use of the information to criminally investigate or prosecute any alcohol or drug abuse patient.[facility], [place]In the event this information is protected by the Federal Confidentiality of Alcohol and Drug Abuse Patient Records regulations: The Federal rules restrict any use of the information to criminally investigate or prosecute any alcohol or drug abuse patient.[facility], [place]In the event this information is protected by the Federal Confidentiality of Alcohol and Drug Abuse Patient Records regulations: The Federal rules restrict any use of the information to criminally investigate or prosecute any alcohol or drug abuse patient.[facility], [place]In the event this information is protected by the Federal Confidentiality of Alcohol and Drug Abuse Patient Records regulations: The Federal rules restrict any use of the information to criminally investigate or prosecute any alcohol or drug abuse patient.[facility], [place]In the event this information is protected by the Federal Confidentiality of Alcohol and Drug Abuse Patient Records regulations: The Federal rules restrict any use of the information to criminally investigate or prosecute any alcohol or drug abuse patient.[facility], [place]In the event this information is protected by the Federal Confidentiality of Alcohol and Drug Abuse Patient Records regulations: The Federal rules restrict any use of the information to criminally investigate or prosecute any alcohol or drug abuse patient.[facility], [place]In the event this information is protected by the Federal Confidentiality of Alcohol and Drug Abuse Patient Records regulations: The Federal rules restrict any use of the information to criminally investigate or prosecute any alcohol or drug abuse patient.[facility], [place]In the event this information is protected by the Federal Confidentiality of Alcohol and Drug Abuse Patient Records regulations: The Federal rules restrict any use of the information to criminally investigate or prosecute any alcohol or drug abuse patient.[facility], [place]In the event this information is protected by the Federal Confidentiality of Alcohol and Drug Abuse Patient Records regulations: The Federal rules restrict any use of the information to criminally investigate or prosecute any alcohol or drug abuse patient.[facility], [place]In the event this information is protected by the Federal Confidentiality of Alcohol and Drug Abuse Patient Records regulations: The Federal rules restrict any use of the information to criminally investigate or prosecute any alcohol or drug abuse patient.[facility], [place]In the event this information is protected by the Federal Confidentiality of Alcohol and Drug Abuse Patient Records regulations: The Federal rules restrict any use of the information to criminally investigate or prosecute any alcohol or drug abuse patient.[facility], [place]In the event this information is protected by the Federal Confidentiality of Alcohol and Drug Abuse Patient Records regulations: The Federal rules restrict any use of the information to criminally investigate or prosecute any alcohol or drug abuse patient.[facility], [place]In the event this information is protected by the Federal Confidentiality of Alcohol and Drug Abuse Patient Records regulations: The Federal rules restrict any use of the information to criminally investigate or prosecute any alcohol or drug abuse patient.[facility], [place]In the event this information is protected by the Federal Confidentiality of Alcohol and Drug Abuse Patient Records regulations: The Federal rules restrict any use of the information to criminally investigate or prosecute any alcohol or drug abuse patient.[facility], [place]In the event this information is protected by the Federal Confidentiality of Alcohol and Drug Abuse Patient Records regulations: The Federal rules restrict any use of the information to criminally investigate or prosecute any alcohol or drug abuse patient.[facility], [place]In the event this information is protected by the Federal Confidentiality of Alcohol and Drug Abuse Patient Records regulations: The Federal rules restrict any use of the information to criminally investigate or prosecute any alcohol or drug abuse patient.[facility] BeachwoodIn the event this information is protected by the Federal Confidentiality of Alcohol and Drug Abuse Patient Records regulations: The Federal rules restrict any use of the information to criminally investigate or prosecute any alcohol or drug abuse patient.[facility], BeachwoodIn the event this information is protected by the Federal Confidentiality of Alcohol and Drug Abuse Patient Records regulations: The Federal rules restrict any use of the information to criminally investigate or prosecute any alcohol or drug abuse patient.[facility] BeachwoodIn the event this information is protected by the Federal Confidentiality of Alcohol and Drug Abuse Patient Records regulations: The Federal rules restrict any use of the information to criminally investigate or prosecute any alcohol or drug abuse patient.[facility] BeachwoodIn the event this information is protected by the Federal Confidentiality of Alcohol and Drug Abuse Patient Records regulations: The Federal rules restrict any use of the information to criminally investigate or prosecute any alcohol or drug abuse patient.[facility] [place]woodIn the event this information is protected by the Federal Confidentiality of Alcohol and Drug Abuse Patient Records regulations: The Federal rules restrict any use of the information to criminally investigate or prosecute any alcohol or drug abuse patient.[facility] [place]woodIn the event this information is protected by the Federal Confidentiality of Alcohol and Drug Abuse Patient Records regulations: The Federal rules restrict any use of the information to criminally investigate or prosecute any alcohol or drug abuse patient.[facility] [place]woodIn the event this information is protected by the Federal Confidentiality of Alcohol and Drug Abuse Patient Records regulations: The Federal rules restrict any use of the information to criminally investigate or prosecute any alcohol or drug abuse patient.[facility] [place]woodIn the event this information is protected by the Federal Confidentiality of Alcohol and Drug Abuse Patient Records regulations: The Federal rules restrict any use of the information to criminally investigate or prosecute any alcohol or drug abuse patient.[facility] [place]woodIn the event this information is protected by the Federal Confidentiality of Alcohol and Drug Abuse Patient Records regulations: The Federal rules restrict any use of the information to criminally investigate or prosecute any alcohol or drug abuse patient.[facility] [place]woodIn the event this information is protected by the Federal Confidentiality of Alcohol and Drug Abuse Patient Records regulations: The Federal rules restrict any use of the information to criminally investigate or prosecute any alcohol or drug abuse patient.[facility] [place]woodIn the event this information is protected by the Federal Confidentiality of Alcohol and Drug Abuse Patient Records regulations: The Federal rules restrict any use of the information to criminally investigate or prosecute any alcohol or drug abuse patient.[facility] [place]woodIn the event this information is protected by the Federal Confidentiality of Alcohol and Drug Abuse Patient Records regulations: The Federal rules restrict any use of the information to criminally investigate or prosecute any alcohol or drug abuse patient.[facility] ClinicIn the event this information is protected by the Federal Confidentiality of Alcohol and Drug Abuse Patient Records regulations: The Federal rules restrict any use of the information to criminally investigate or prosecute any alcohol or drug abuse patient.[facility] [place]woodIn the event this information is protected by the Federal Confidentiality of Alcohol and Drug Abuse Patient Records regulations: The Federal rules restrict any use of the information to criminally investigate or prosecute any alcohol or drug abuse patient.[facility] [place]woodIn the event this information is protected by the Federal Confidentiality of Alcohol and Drug Abuse Patient Records regulations: The Federal rules restrict any use of the information to criminally investigate or prosecute any alcohol or drug abuse patient.[facility] [place]woodIn the event this information is protected by the Federal Confidentiality of Alcohol and Drug Abuse Patient Records regulations: The Federal rules restrict any use of the information to criminally investigate or prosecute any alcohol or drug abuse patient.[facility] [place]woodIn the event this information is protected by the Federal Confidentiality of Alcohol and Drug Abuse Patient Records regulations: The Federal rules restrict any use of the information to criminally investigate or prosecute any alcohol or drug abuse patient.[facility] [place]woodIn the event this information is protected by the Federal Confidentiality of Alcohol and Drug Abuse Patient Records regulations: The Federal rules restrict any use of the information to criminally investigate or prosecute any alcohol or drug abuse patient.[facility] [place]woodIn the event this information is protected by the Federal Confidentiality of Alcohol and Drug Abuse Patient Records regulations: The Federal rules restrict any use of the information to criminally investigate or prosecute any alcohol or drug abuse patient.[facility] [place] Care Teams (unrecognized sec tion and content) Computed Tomography Technician Relationship Specialty Start Date End Date Andry Jean-Baptiste MD [address] [place] [address] PCP - General Family Practice 12/14/15 Computed Tomography Technician Relationship Specialty Start Date End Date Andry Jean-Baptiste MD [address] [place] [address] PCP - General Family Practice 12/14/15 Computed Tomography Technician Relationship Specialty Start Date End Date Andry Jean-Baptiste MD [facility] [place] [address] PCP - General Family Practice 12/14/15 Computed Tomography Technician Relationship Specialty Start Date End Date Andry Jean-Baptiste MD [address] [place] [address], [place] [address] PCP - General Family Practice 12/14/15 Computed Tomography Technician Relationship Specialty Start Date End Date Andry Jean-Baptiste MD [address] [place] [address] [place] [address] PCP - General Family Practice 12/14/15 Computed Tomography Technician Relationship Specialty Start Date End Date Andry Jean-Baptiste MD [address] [place] [address] [place] [address] PCP - General Family Practice 12/14/15 Computed Tomography Technician Relationship Specialty Start Date End Date Andry Jean-Baptiste MD [address] [place] [address] [place] [address] PCP - General Family Practice 12/14/15 Computed Tomography Technician Relationship Specialty Start Date End Date Andry Jean-Baptiste MD [address] [place] [address] [place] [address] PCP - General Family Practice 12/14/15 Computed Tomography Technician Relationship Specialty Start Date End Date Andry Jean-Baptiste MD [address] [place] [address], [place] [address] PCP - General Family Medicine 12/14/15 Computed Tomography Technician Relationship Specialty Start Date End Date Andry Jean-Baptiste MD [address] [place] [address] [place] [address] PCP - General Family Medicine 12/14/15 Computed Tomography Technician Relationship Specialty Start Date End Date Andry Jean-Baptiste MD [address] [facility] [place] [address] PCP - General Family Medicine 12/14/15 Computed Tomography Technician Relationship Specialty Start Date End Date Andry Jean-Baptiste MD [address] [facility] [place] [address] PCP - General Family Medicine 12/14/15 Computed Tomography Technician Relationship Specialty Start Date End Date Andry Jean-Baptiste MD 0 [facility] [place] [address] PCP - General Family Medicine 12/14/15 Computed Tomography Technician Relationship Specialty Start Date End Date Andry Jean-Baptiste MD 0 [facility] [place] [address] PCP - General Family Medicine 12/14/15 Computed Tomography Technician Relationship Specialty Start Date End Date Andry Jean-Baptiste MD 0 [facility] [place] [address] PCP - General Family Medicine 12/14/15 Computed Tomography Technician Relationship Specialty Start Date End Date Andry Jean-Baptiste MD 0 [facility] [place] [address] PCP - General Family Medicine 12/14/15 Computed Tomography Technician Relationship Specialty Start Date End Date Andry Jean-Baptiste MD 0 [facility] [place] [address] PCP - General Family Medicine 12/14/15 Computed Tomography Technician Relationship Specialty Start Date End Date Andry Jean-Baptiste MD 0 [facility] [place] [address] PCP - General Family Medicine 12/14/15 Computed Tomography Technician Relationship Specialty Start Date End Date Andry Jean-Baptiste MD 0 [facility] [place] [address] PCP - General Family Medicine 12/14/15 Team Status: Active Member Role Status Dates Dr. Andry Jean-Baptiste MD Family Provider Active Dr. Andry Jean-Baptiste MD Primary Care Provider Active Team Status: Inactive Member Role Status Dates Dr. Andry Jean-Baptiste MD Primary Care Provider, Referri ng Provider Active Dr. Jason Nelson DO Attending Provider Active Team Status: Active Member Role Status Dates Dr. Andry Jean-Baptiste MD Primary Care Provider, Referri ng Provider Active Dr. Jason Nelson DO Attending Provider, Other Prov ider Active Team Status: Inactive Member Role Status Dates Dr. Andry Jean-Baptiste MD Primary Care Provider Active Dr. Jason Nelson DO Attending Provider, Referring Provider Active Team Status: Inactive Member Role Status Dates Dr. Andry Jean-Baptiste MD Primary Care Provider Active Dr. Kirk Dumas MD Attending Provider, Referrin g Provider Active Computed Tomography Technician Relationship Specialty Start Date End Date Andry Jean-Baptiste MD [address] [place] [address] PCP - General Family Medicine 12/14/15 Computed Tomography Technician Relationship Specialty Start Date End Date Andry Jean-Baptiste MD [address] [place] [address] PCP - General Family Medicine 12/14/15 Computed Tomography Technician Relationship Specialty Start Date End Date Andry Jean-Baptiste MD [address] [place] [address] PCP - General Family Medicine 12/14/15 Computed Tomography Technician Relationship Specialty Start Date End Date Andry Jean-Baptiste MD [address] [place] [address] PCP - General Family Medicine 12/14/15 Computed Tomography Technician Relationship Specialty Start Date End Date Andry Jean-Baptiste MD [address] [place] [address] PCP - General Family Medicine 12/14/15 Computed Tomography Technician Relationship Specialty Start Date End Date Andry Jean-Baptiste MD [address] [place] [address] PCP - General Family Medicine 12/14/15 Team Status: Inactive Member Role Status Dates Dr. Andry Jean-Baptiste MD Primary Care Provider Active Dr. Maycol Olivares MD Attending Provider, Emergency Pro vider Active Team Status: Inactive Member Role Status Dates Dr. Andry Jean-Baptiste MD Primary Care Provider Active Dr. Thor Oswald MD Emergency Provider Active Computed Tomography Technician Relationship Specialty Start Date End Date Andry Jean-Baptiste MD [address] [place] [address] PCP - General Family Medicine 12/14/15 Computed Tomography Technician Relationship Specialty Start Date End Date Andry Jean-Baptiste MD [address] [place] [address] PCP - General Family Medicine 12/14/15 Computed Tomography Technician Relationship Specialty Start Date End Date Andry Jean-Baptiste MD [address] [place] [address] PCP - General Family Medicine 12/14/15 Computed Tomography Technician Relationship Specialty Start Date End Date Andry Jean-Baptiste MD [address] [place] [address] PCP - General Family Medicine 12/14/15 Team Status: Inactive Member Role Status Dates Dr. Andry Jean-Baptiste MD Primary Care Provider Active Dr. Thor Oswald MD Attending Provider, Emergency Provider Active Team Status: Inactive Member Role Status Dates Dr. Andry Jean-Baptiste MD Primary Care Provider Active Dr. Lionel Neville DO Emergency Provider Active Team Status: Inactive Member Role Status Dates Dr. Andry Jean-Baptiste MD Primary Care Provider Active Dr. Dany Tovar MD Attending Provider, Lynn adames Active Team Status: Inactive Member Role Status Dates Dr. Andry Jean-Baptiste MD Primary Care Provider Active Dr. Lionel Neville , DO Attending Provider, Emergency Dylan adames Active Computed Tomography Technician Relationship Specialty Start Date End Date Andry Jean-Baptiste MD [address] [place] [address] PCP - General Family Medicine 12/14/15 Computed Tomography Technician Relationship Specialty Start Date End Date Andry Jean-Baptiste MD [address] [place] [address] PCP - General Family Medicine 12/14/15 Computed Tomography Technician Relationship Specialty Start Date End Date Andry Jean-Baptiste MD [address] [place] [address] PCP - General Family Medicine 12/14/15 Computed Tomography Technician Relationship Specialty Start Date End Date Andry Jean-Baptiste MD [address] [place] [address] PCP - General Family Medicine 12/14/15 Computed Tomography Technician Relationship Specialty Start Date End Date Andry Jean-Baptiste MD [address] [place] [address] PCP - General Family Medicine 12/14/15 Computed Tomography Technician Relationship Specialty Start Date End Date Andry Jean-Baptiste MD [address] [place] [address] PCP - General Family Medicine 12/14/15 Team Status: Active Member Role Status Dates Dr. Anrdy Jean-Baptiste MD Primary Care Provider Active Dr. Saray Hutchinson , DO Emergency Provider Active Dr. Dutch Garnett , DO Admit Provider, Attending Provider Active Computed Tomography Technician Relationship Specialty Start Date End Date Andry Jean-Baptiste MD [address] [place] [address] PCP - General Family Medicine 12/14/15 Computed Tomography Technician Relationship Specialty Start Date End Date Andry Jean-Baptiste MD [address] [place] [address] PCP - General Family Medicine 12/14/15 Computed Tomography Technician Relationship Specialty Start Date End Date Andry Jean-Baptiste MD [address] [place] [address] PCP - General Family Medicine 12/14/15 Computed Tomography Technician Relationship Specialty Start Date End Date Andry Jean-Baptiste MD [address] [place] [address] PCP - General Family Medicine 12/14/15 Computed Tomography Technician Relationship Specialty Start Date End Date Andry Jean-Baptiste MD [address] [place] [address] PCP - General Family Medicine 12/14/15 Computed Tomography Technician Relationship Specialty Start Date End Date Andry Jean-Baptiste MD [address] [place] [address] PCP - General Family Medicine 12/14/15 Lew Bird APRN.COMPOSITION FLOOR SETTER [address] [place] [address] Merchandising Team Lead Family Medicine 04/16/24 Irma Perez PA-C [address] [place] [address] Merchandising Team Lead Family Medicine 04/16/24 Computed Tomography Technician Relationship Specialty Start Date End Date Andry Jean-Baptiste MD [address] [place] [address] PCP - General Family Medicine 12/14/15 Lew Bird APRN.COMPOSITION FLOOR SETTER [address] [place] [address] Merchandising Team Lead Family Medicine 04/16/24 Irma Perez PA-C [address] [place] [address] Merchandising Team Lead Family [facility] 04/16/24 Computed Tomography Technician Relationship Specialty Start Date End Date Andry Jean-Baptiste MD [address] [place] [address] PCP - General Family Medicine 12/14/15 Lew Bird, CATIA.COMPOSITION FLOOR SETTER [address] [place] [address] Merchandising Team Lead Family Medicine 04/16/24 Irma Perez PA-C [address] [place] [address] Merchandising [facility] 04/16/24 Computed Tomography Technician Relationship Specialty Start Date End Date Andry Jean-Baptiste MD [address] [place] [address] PCP - General Family Medicine 12/14/15 Lew Bird, SOLAR SALES CONSULTANT.COMPOSITION FLOOR SETTER [address] [place] [address] Merchandising Team Lead Family Medicine 04/16/24 Irma Perez PA-C [address] [place] [address] Merchandising Team Lead Family Medicine 04/16/24 Computed Tomography Technician Relationship Specialty Start Date End Date Andry Jean-Baptiste MD [address] [facility] [place] [address] PCP - General Family Medicine 12/14/15 Lew Bird, CATIA.COMPOSITION FLOOR SETTER [address] [place] [address] Merchandising Team Lead Family Medicine 04/16/24 Irma Perez PA-C [address] [facility] [place] [address] Merchandising Team Lead Family Medicine 04/16/24 Computed Tomography Technician Relationship Specialty Start Date End Date Andry Jean-Baptiste MD [address] [facility] [place] [address] PCP - General Family Medicine 12/14/15 Lew Bird, SOLAR SALES CONSULTANT.COMPOSITION FLOOR SETTER [address] [place] [address] Merchandising Team Lead Family Medicine 04/16/24 Irma Perez PA-C [address] [facility] [place] [address] Merchandising Team Lead Family Medicine 04/16/24 Computed Tomography Technician Relationship Specialty Start Date End Date Andry Jean-Baptiste MD [address] [facility] [place] [address] PCP - General Family Medicine 12/14/15 Lew Bird APRN.COMPOSITION FLOOR SETTER [address] [place] [address] Merchandising Team Lead Family Medicine 04/16/24 Irma Perez PA-C [address] [facility] [place] [address] Merchandising Team Lead Family Medicine 04/16/24 Computed Tomography Technician Relationship Specialty Start Date End Date Andry Jean-Baptiste MD [address] [place] [address] PCP - General Family Medicine 12/14/15 Lew Bird APRN.COMPOSITION FLOOR SETTER [address] [place] [address] Merchandising Team Lead Family Medicine 04/16/24 Irma Perez PA-C [address] [place] [address] [facility] 04/16/24 Computed Tomography Technician Relationship Specialty Start Date End Date Andry Jean-Baptiste MD [address] [place] [address] PCP - General Family Medicine 12/14/15 Lew Bird APRN.COMPOSITION FLOOR SETTER [address] [place] [address] Merchandising Team Lead Family Medicine 04/16/24 Irma Perez PA-C [address] [place] [address] Merchandising Team Lead Family Medicine 04/16/24 Computed Tomography Technician Relationship Specialty Start Date End Date Adnry Jean-Baptiste MD [address] [place] [address] PCP - General Family Medicine 12/14/15 Lew Bird APRN.COMPOSITION FLOOR SETTER [address] [place] [address] Merchandising Team Lead Family Medicine 04/16/24 Irma Perez PA-C [address] [place] [address] Merchandising Team Lead Family Medicine 04/16/24 Computed Tomography Technician Relationship Specialty Start Date End Date Andry Jean-Baptiste MD [address] [place] [address] PCP - General Family Medicine 12/14/15 Lew Bird APRN.COMPOSITION FLOOR SETTER [address] [place] [address] Merchandising Team Lead Family Medicine 04/16/24 Irma Perez PA-C [address] [place] [address] Merchandising Team Lead Family [facility] 04/16/24 Computed Tomography Technician Relationship Specialty Start Date End Date Andry Jean-Baptiste MD [address] [place] [address] PCP - General Family Medicine 08/15/24 Lew Bird APRN.COMPOSITION FLOOR SETTER [address] [place] [address] Merchandising Team Lead Family Medicine 04/16/24 Irma Perez PA-C [address] [place] [address] Merchandising Team Lead Family Medicine 04/16/24 Computed Tomography Technician Relationship Specialty Start Date End Date Andry Jean-Baptiste MD [address] [place] [address] PCP - General Family Medicine 08/15/24 Lew Bird APRN.COMPOSITION FLOOR SETTER [address] [place] [address] Merchandising Team Lead Family Medicine 04/16/24 Irma Perez PA-C [address] [place] [address] Merchandising Team Lead Family Medicine 04/16/24 Computed Tomography Technician Relationship Specialty Start Date End Date Andry Jean-Baptiste MD [address] [place] [address] PCP - General Family Medicine 08/15/24 Lew Bird APRN.COMPOSITION FLOOR SETTER [address] [place] [address] Merchandising Team Lead Family Medicine 04/16/24 Irma Perez PA-C [address] [place] [address] Merchandising Team Lead Family Medicine 04/16/24 Computed Tomography Technician Relationship Specialty Start Date End Date Andry Jean-Baptiste MD [address] [place] [address] PCP - General Family Medicine 08/15/24 Lew Bird APRN.COMPOSITION FLOOR SETTER [facility] [place] [address] Merchandising Team Lead Family Medicine 04/16/24 Irma Perez PA-C [address] [place] [address] Merchandising Team Lead Family Medicine 04/16/24 Computed Tomography Technician Relationship Specialty Start Date End Date Andry Jean-Baptiste MD [address] [place] [address] PCP - General Family Medicine 08/15/24 Lew Bird APRN.COMPOSITION FLOOR SETTER [address] [place], [place] [id number] [facility] 04/16/24 Irma Perez PA-C [address] [place] [address] [facility] 04/16/24 Reason for Visit (unrecogniz ed section and content) Reason Comments Results Reason Comments Appointment Reason Comments Recheck Patient is here for follow on up GERD/chest pain Reason Comments Heart Catheterization Follow Up Reason Comments Established Patient Reason Onset Date Comments Refill Request 01/27/2022 Reason Comments Medicare Wellness Exam Reason Comments New Pain Specialty Diagnoses / Procedures Referred By Contac t Referred To Contact Podiatry Diagnoses Nail problem Procedures CONSULT TO PODIATRY OFFICE/OUTPATIENT NEW HIGH MDM 60-74 MINUTES Andry Jean-Baptiste MD [address] [place] [address] Referral ID Status Reason Start Date Expiration Date V isits Requested Visits Authorized [id number] Closed PCP Requested Referral 03/07/2022 03/07/2023 1 1 Reason Comments Cough SOB, fever, x5 days. Reason Comments Cough Reason Comments Consult Reason Comments Follow Up Trouble swallowing- Reason Comments 6 Month Exam Reason Comments Rash L lower leg rash; re questing refill Reason Onset Date Comments Refill Request 01/27/2023 Reason Comments Cough Sob, chest discomfor t x 1 week Reason Comments ED Follow-up Pneumonia Reason Comments Erroneous encounter-disregard Reason Comments Patient Update Reason Comments ED Follow-up Reason Comments Spirometry Specialty Diagnoses / Procedures Referred By Contac t Referred To Contact [facility] Diagnoses Chronic obstructive pulmonary disease, unspecified COPD type (HCC) Procedures LUNG DIFFUSION CAPACITY (DLCO) DIFFUSING CAPACITY Teri Gross MD [address] [facility] [place] [address] Res[facility] [place] [address] [place] [address] Referral ID Status Reason Start Date Expiration Date V isits Requested Visits Authorized [id number] Closed Auto-Generate d Referral 04/16/2023 05/15/2024 1 1 Reason Comments New Patient COPD Reason Comments Shortness of Breath Reason Comments Radiology CT Specialty Diagnoses / Procedures Referred By Contac t Referred To Contact CT IMAGING Diagnoses Pneumonia of right lung due to infectious organism, unspecified part of lung Procedures CT CHEST WO IVCON DIAGNOSTIC COMPUTED TOMOGRAPHY THORAX W/O Teri Jara MD [address] [place] [address] [place] [address] Referral ID Status Reason Start Date Expiration Date V isits Requested Visits Authorized [id number] Closed Auto-Generate d Referral 06/16/2023 07/16/2023 1 [address] Chest [address] Reason Comments F/U [address] scan, COPD , asthma Reason Onset Date Comments Refill Request 08/16/2023 Reason Onset Date Comments Refill Request 09/08/2023 Reason Comments Cough Reason Comments Hospital F/U Reason Comments Hospital F/U Reason Comments Ext / [facility] Reason Onset Date Comments Refill Request 01/14/2024 Reason Onset Date Comments Refill Request 01/18/2024 Reason Onset Date Comments Refill Request 02/15/2024 Reason Comments ER Discharge Summary Reason Onset Date Comments ACM SANDEE RN 04/04/2024 No action nee ded. Reason Comments ER F/U Reason Onset Date Comments Refill Request 05/12/2024 Reason Comments Orders Reason Comments Heel/foot radiating up left leg Pain Reason Onset Date Comments Refill Request 05/24/2024 Reason Comments Medicare Wellness Exam Reason Comments Radiology CT Specialty Diagnoses / Procedures Referred By Contac t Referred To Contact [facility] Diagnoses Lung nodules Procedures CT CHEST WO IVCON DIAGNOSTIC COMPUTED TOMOGRAPHY THORAX W/O Teri Jara MD [address] [place] [address] Phone: tel: fax: [place] [phone] Referral ID Status Reason Start Date Expiration Date V isits Requested Visits Authorized [id number] Closed Auto-Generate d Referral 06/07/2024 08/06/2024 1 1 Reason Comments Short Of Breath Reason Comments Future Appointment Reason Comments Cough Head Congestion Chest Congestion Reason Onset Date Comments Results 07/04/2024 Reason Comments Follow Up Pneumonia, covid Reason Comments Established Patient Follow up CT/Covid P NA Asthma copd overlap Nodule Reason Comments scratch left lower arm Reason Comments Laceration Right arm, laceratio n. Cut arm on ryne nail 4 days ago. Reason Comments Established Patient COPD Goals (unrecognized section and content) Goals may be documented in a n alternate sectionGoals may be documented in an alternate sectionGoals may be documented in an alternate sectionGoals may be documented in an alternate section FOR RECORDS PERTAINING TO PATIENTS WHO ARE OR HAVE BEEN ENROLLED IN A CHEMICAL DEPENDENCY/SUBSTANCEABUSE PROGRAM, SOME INFORMATION MAY BE OMITTED. This clinical summary was aggregated from multiple sources. Caution should be exercised in using it in the provision of clinical care. This summary normalizes information from multiple sources, and as a consequence, information in this document may materially change the coding, format and clinical context of patient data. In addition, data may be omitted in some cases. CLINICAL DECISIONS SHOULD BE BASED ON THE PRIMARY CLINICAL RECORDS. [facility] [employer] provides no warranty or guarantee of the accuracy or completeness of information in this document.
--- OUTSIDE RECORDS SUMMARY | 2024-11-13 18:19 | XMS RPT_ITS | CCD ---
Author Organization [facility] Care Team Providers Care 911 Telecommunicator Name Role Phone Ronak Barry MD Unavailable Sena Hall Unavailable Unavailable DANY TOVAR DR Unavailable Unavailable DANY TOVAR DR Unavailable Unavailable DANY TOVAR DR Unavailable Unavailable RYLIE HINOJOSA Unavailable Unavailable PROVIDER, UNKNOWN Unavailable Unavailable PROVIDER, UNKNOWN Unavailable Unavailable PROVIDER, UNKNOWN Unavailable Unavailable Sena Hall Unavailable Unavailable Andry Jean-Baptiste MD Primary Care Provider Anrdy Jean-Baptiste MD Primary Care Provider [phone] Andry Jean-Baptiste MD Primary Care Provider Andry Jean-Baptiste MD Primary Care Provider Dr. Andry Jean-Baptiste Primary Care Provider Dr. Andry Jean-Baptiste Referring Provider Dr. Jason Nelson Attending Provider FriendDr. Gomez Other Provider Andry Jean-Baptiste MD Primary Care Provider [phone] Andry Jean-Baptiste MD Primary Care Provider Henok [...] Drug Allergy 06-19-19 17 Other: See Comments [facility] Opioid Agonists (4 sources) Codeine Drug Allergy 02-11-20 05 Unknown, Other: See Comments [facility] Streptococcus pneumoniae type 1 capsular polysaccharide antigen [...] polysaccharide antigen Drug Allergy 03-25-20 13 Swelling [facility] (3 sources) acetaminophen / propoxyphene drug allergy 08-20-19 17 [facility] Work Phone: (20 sources) codeine; Translations: [CODEINE] drug allergy 02-11-20 05 Unknown [facility] Work Phone: (4 sources) meperidine; Translations: [DEMEROL] drug allergy 08-20-19 17 [facility] Work Phone: (20 sources) morphine; Translations: [morphine] drug allergy 07-06-19 15 Other: See Comments [facility] Work Phone: [phone] (3 sources) PNEUMONIA VACCINE drug allergy 08-21-19 17 [facility] Work Phone: (1 source) meperidine Drug Allergy [facility] (1 source) propoxyphene Drug Allergy [facility] (1 source) DARVOCET-N 100 Drug allergy (disorder) AOF [facility] (20 sources) atorvastatin; Translations: [ATORVASTATIN CALCIUM] Drug Allergy 06-19-19 17 Other: See Comments [facility] Work Phone: (20 sources) Meperidine; Translations: [MEPERIDINE HCL] Drug Allergy 02-11-20 05 Unknown [facility] Work Phone: (20 sources) Propoxyphene; Translations: [PROPOXYPHENE HCL] Drug Allergy 02-11-20 05 Unknown [facility] Work Phone: (20 sources) Streptococcus pneumoniae type [...] PS VACCINE] Drug Allergy 03-25-20 13 Swelling [facility] Work Phone: (20 sources) Bees; Translations: [BEES] Allergy to substance 07-06-19 [facility] Work Phone: (20 sources) Propoxyphene N-Acetaminophen; Translations: [PROPOXYPHENE N-ACETAMINOPHEN] Propensity to adverse reactions to drug 02-11-20 [facility] Work Phone: (5 sources) Acetaminophen Drug Allergy 09-03-19 Unknown [facility] (5 sources) atorvastatin Drug Allergy 09-03-19 23 leg weakness [facility] (5 sources) Pneumococcal vaccine Drug Allergy 09-03-19 23 localized swelling [facility] (6 sources) Propoxyphene; Translations: [propoxyphene napsylate] Drug Allergy 09-03-19 Unknown [facility] (5 sources) bee venom protein (honey bee) Allergy to substance 09-03-19 Hives [facility] (1 source) Acetaminophen Drug Allergy 07-11-19 [facility] (1 source) atorvastatin Drug Allergy 07-11-19 [facility] (1 source) Meperidine Drug Allergy 07-11-19 25 [facility] (1 source) Pneumococcal vaccine Drug Allergy 07-11-19 [facility] (1 source) Propoxyphene Drug Allergy 07-11-19 [facility] (1 source) bee venom protein (honey bee) Drug allergy (disorder) 07-11-19 [facility] Medications Current Medications Medication Drug Class(es) Dates Sig (Normalized) Sig (Original) acetaminophen 500 mg oral tablet (17 sources) take 2 tablets by mouth twice daily acetaminophen (TYLENOL EXTRA STRENGTH) 500 mg tablet Take 1,000 mg by mouth two times a day. Active [id number] 200 actuat albuterol 0.09 mg/actuat metered dose [...] AERS As needed - 90mcg/inh ALBUTEROL SULFATE [id number] Natalie Juarez RN Start: 08-19-2016 VENTOLIN HFA 1 08 (90 Base) MCG/ACT AERS As needed - 90mcg/inh ALBUTEROL SULFATE [id number] Natalie Juarez RN Comment on above: Inhale [...] Comment on above: Take 1 capsule by [facility] three times daily as needed. Take 2 capsules by [facility] three times a day as needed. calcium [...] Comment on above: Take 1 tablet by [facility] once daily. cholecalciferol 1.25 mg oral capsule [...] Comment on above: Take 1 capsule by [facility] one time a week. cyanocobalamin, vitamin B-12, (VITAMIN B-12 ORAL) (20 sources) take 2 tablets by mouth once daily cyanocobalamin, vitamin B-12, (VITAMIN B-12 ORAL) Take 2 tablets by mouth once daily. Active take 2 tablets by mouth once melquiades ly cyanocobalamin, vitamin B-12, (VITAMIN B-12 ORAL) Take 2 tablets by mouth once daily. 0 Active Comment on above: Take 2 tablets by [facility] once daily. [id number] 0.3 ml EPINEPHrine 1 mg/ml auto-injector (20 [...] take 1 puff(s) by inhalation once daily arrmlakqktl-yhudktbav-ejeiyhsw (TRELEGY ELLIPTA) 100-62.5-25 mcg inhalation powder Indications: [...] a total of three tablets twice daily. Paoli-3 Fatty Acids (5 sources) Start: take 1000 mg by mouth once daily [place]-3 Fatty Acids Active 1000 MG PO DAILY October 23, 2021 11:00pm Start: 10-24-2021 take 1000 mg by mouth once melquiades ly [place]-3 Fatty Acids Active 1000 MG PO DAILY October 24, 2021 12:00am omega-3 fatty acids 1,000 mg cap (20 sources) Start: 12-24-2016 take 1 capsule by mouth once daily omega-3 fatty acids 1,000 mg cap Take 1 capsule by mouth once daily. 0 12/24/2016 Active Comment on above: Take 1 capsule by [facility] once daily. omeprazole 40 mg delayed release [...] Comment on above: Take 1 capsule by [facility] twice daily. Take 1 capsule by [facility] two times a day. 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 90 tablet 1 09/03/2021 03/07/2022 Discontinued Start: 08-19-2016 End: 10-24-2021 take 10 mg by mouth at bedtime Pravastatin Discontinue d 10 MG PO AT BEDTIME September 08, 2016 12:00am October 24, 2021 3:08pm Comment on above: Take 1 tablet by [facility] once daily. predniSONE 20 mg oral tablet [...] days with food. Take 2 tablets by [facility] once daily for 5 days. topiramate 25 [...] AERO One-two puffs per day BUDESONIDE-FORMOTEROL FUMARATE [id number] Ronak Barry MD Start: 08-19-2016 SYMBICORT 80-4 .5 MCG/ACT AERO 2 puffs as instructed twice daily BUDESONIDE-FORMOTEROL FUMARATE [id number] Natalie Juarez RN Start: 08-19-2016 SYMBICORT 80-4 .5 MCG/ACT AERO One-two puffs per day BUDESONIDE-FORMOTEROL FUMARATE [id number] Ronak Barry MD Start: 08-19-2016 SYMBICORT 80-4 .5 MCG/ACT AERO 2 puffs as instructed twice daily BUDESONIDE-FORMOTEROL FUMARATE [id number] Natalie Juarez RN Start: 03-23-2014 End: 10-24-2021 [...] tablet by mouth daily CALCIUM CARBONATE-VITAMIN D [id number] Natalie Juarez RN clopidogrel 75 mg oral [...] times a day for 7 days. ergocalciferol 51515 unt oral capsule (8 sources) Provitamin D2 Compound Start: 08-20-19 take 1 capsule by mouth every week VITAMIN D (ERGOCALCIFEROL) 22480 UNIT CAPS One capsule by mouth every week ERGOCALCIFEROL [id number] Natalie Juarez RN Start: 03-23-2014 End: 10-24-2021 take 1 capsule by mouth every week Ergocalciferol (Vitamin D2) (Vitamin D) 50,000 UNIT capsule Discontinued 16856 UNIT PO Q7D March 23, 2014 1:00am [...] One tablet by mouth daily FERROUS SULFATE [id number] Ronak Barry MD Start: 06-16-2014 End: 04-22-2022 [...] One tablet by mouth daily MULTIPLE VITAMINS-MINERALS [id number] Natalie Juarez RN MULTIPLE VITAMINS-MINERALS (1 source) Start: 08-19-2016 take 1 tablet by mouth once daily NINA MULTIVITAMIN FOR MEN TABS One tablet by mouth daily MULTIPLE VITAMINS-MINERALS 59477951972 Natalie Juarez RN Multivitamin With Folic Acid [...] One tablet by mouth daily PROBIOTIC PRODUCT [id number] Ronak Barry MD PROBIOTIC PRODUCT (1 source) Start: 08-20-2016 take 1 tablet by mouth once daily PROBIOTIC DAILY CAPS One tablet by mouth daily PROBIOTIC PRODUCT [id number] Ronak Barry MD B COMPLEX VITAMINS (8 sources) Start: 08-19-2016 take 1 tablet by mouth once daily VITAMIN B COMPLEX TABS One tablet by mouth daily B COMPLEX VITAMINS [id number] Natalie Juarez RN Start: 03-23-2014 End: 10-24-2021 [...] Angina pectoris; Translations: [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] Onset: 7 [...] (1 source) Long-term drug therapy; Translations: [Other director long term care (current) drug therapy] Onset: 08-19-2016 Unclassified (1 [...] 06-15-2024 Episodic Other aftercare (2 sources) Other intermediate (current) drug therapy; Translations: [Other director long term care (current) drug therapy] Onset: 08-19-2016 08-19-2016 Episodic Other aftercare (20 sources) Patient encounter status; Translations: [Other intermediate (current) drug therapy] Onset: 12-10-2016 08-29-2020 Episodic [...] Test Name Value Interpretation Reference Range Facility [facility] 09-09-2024 CNOV Office Visit (PULMWS ) TARA ARELLANO ([id number]) 1955 M Date Time Provider Department 09/09/24 10:30 AM TERI GROSS PULMARIA DEL CARMEN During your visit today, we recorded the following information about you: Temperature Pulse Respiration Blood pressure 97 degrees 82/minute 20/minute 128/72 Weight 81.6 kg Teri Gross MD 09/09/2024 4:35 PM Signed . Respiratory [place] Note Patient name: Tara Arellano PCP: Andry [...] by mouth once daily for 7 days. kgjqlygzxcj-rdapjeuob-zijse ter (TRELEGY ELLIPTA) 100-62.5-25 mcg inhalation powder [...] triamcinolone acetoni (more content not included)... Normal [facility] Kayla 09-09-2024 [facility] Telephone (RAQUEL) TARA ARELLANO ([id number]) 1955 M Date Time Provider Department 09/09/24 [...] as needed for wheezing/shortness of breath. - sfovoyeyntx-aqrdoopmj-ilaau ter (TRELEGY ELLIPTA) 100-62.5-25 mcg inhalation powder [...] Encounter Status:Closed by JUN ABBOTT on 09/09/[address] [facility] Kayla [facility]20[facility] T[facility] ARELLAN[facility] ([id number]) 1955 M Date Time Provider Department 09/07/24 [...] to the pharmacy it should go to [facility] in [place]. Allergies As of Date: 09/07/2024 Noted Allergy [...] as needed for wheezing/shortness of breath. - jrcwmnuhsef-bqnscciec-zkhiq ter (TRELEGY ELLIPTA) 100-62.5-25 mcg inhalation powder [...] 08/29/2020 Encount (more content not included)... Normal [facility] CNOVon 08-18-2024 CNOV Office Visit (FAMPWS ) TARA ARELLANO ([id number]) 1955 Date Time Provider Department 08/18/24 11:40 AM JAIMIE JETT FAMPWS During your visit today, we recorded the following information about you: Temperature Pulse Blood pressure Weight 97.6 degrees 76/minute 128/72 83.9 kg Jaimie Jett APRN.COUNTER CASER 08/18/2024 11:35 AM Signed This is a [...] HFA, VENT (more content not included)... Normal [facility]-18-2024 [facility] TARA ARELLANO ([id number]) 1955 M Date Time Provider Department 08/18/24 ANDRY JEAN-BAPTISTE [facility] During your visit today, we recorded [...] as needed for wheezing/shortness of breath. - wbqfbtbjchz-uvharhjjb-whcor ter (TRELEGY ELLIPTA) 100-62.5-25 mcg inhalation powder [...] ARTERIES RAQUEL [facility] Non-Invasive Vascular Laboratory [facility] Carotid Duplex Bilateral/Complete Date of service/time: 07/20/2024 [...] interpretation criteria are used as recommended by [employer]. When compared with the prior [...] Subclavian artery: Patent. Technologist: Tisha Golden RVT, [facility] Ordering physician: ANDRY JEAN-BAPTISTE Interpreting physician: RAQUEL Costa DO Final CC [facility] Image : [id number] See Link below for Image Normal [facility] CNOVon 07-14-2024 CNOV Office Visit (PULMWS ) TARA ARELLANO ([id number]) 1955 M Date Time Provider Department 07/14/24 10:00 AM TERI GROSS PULMWS During your visit today, we recorded the following information about you: Pulse Respiration Blood pressure Weight 81/minute 16/minute 132/70 83.9 kg Teri Gross MD 07/14/2024 2:10 PM Signed . Respiratory [place] Note Patient name: Tara Arellano PCP: Andry Jean-Baptiste MD CC: COPD and lung nodules HPI: Tara Arellano 68 year old male former 20-aguo-rmvn smoker quitting in 2001 with PMH significant [...] DATE OF EXAM: Jun 17 2024 9:11AM [facility] 0541 - CT CHEST WO IVCON / [...] unspecified as (more content not included)... Normal [facility] Zinc SerPl-mCncon 07-14-2024 Zinc [Mass/Vol] 85 ug/dL Normal 60-120 [facility] Comment on above: Order Comment: Speci men Type: BLOOD SPECIMENOrdering Facility: [facility] Address: [address] [place] [address] Result Comment: This test was developed, and its performance characteristics determined by the [facility] Department of Pathology and Laboratory Medicine. It has not been cleared or approved by the FDA. The [facility] Department of Pathology and Laboratory Medicine is regulated under CLIA as qualified to perform high-complexity testing. This test is used for clinical purposes. It should not be regarded as investigational or for research. Performed By: #### 5 763-8 ####[facility] LABCLIA [id number] [place] [address] [place] 12 Lead EKGon 07-10-2024 12 Lead EKG [facility] Cardiovascular Services [address] [place] [address] 12 Lead EKG 07/10/24 1529 MR#: [id number] Acct: [id number] Name: TARA ARELLANO Rep #: [id number] : 1955 68 From: Anival Ivey MD [...] change was found Confirmed by Anival Ivey ([id number]), multimedia editor HANNA DURANT ([id number]) on 07/11/2024 9:48:25 AM Referred By: Jamin/jack Confirmed By: Anival Ivey 07/11/2448 Date Anival Ivey MD CC: Dr. Fredo Smiley MD; Dr. Andry Jean-Baptiste MD Signed Normal [facility] Basic Metabolic Profile (BMP )on 07-10-2024 Anion gap [Moles/Vol] 10 mmol/L Normal 5-15 [facility] Comment on above: Performed By: #### L 100.0100, L500.2500, L503.7505 ####[facility] [address] [place], [address] BUN/CRE 15.9 RATIO Normal 10-20 [facility] Comment on above: Performed By: #### L 100.0100, L500.2500, L503.7505 ####[facility] [address] [place], [address] Calcium [Mass/Vol] 9.1 mg/dL Normal 7.6-11.0 [facility] Comment on above: Performed By: #### L 100.0100, L500.2500, L503.7505 ####[facility] [address] [place], [address] Chloride [Moles/Vol] 104 mmol/L Normal 96-108 [facility] Comment on above: Performed By: #### L 100.0100, L500.2500, L503.7505 ####[facility] [address] [place], [address] CO2 [Moles/Vol] 22.8 mmol/L Normal 22.0-29.0 [facility] Comment on above: Performed By: #### L 100.0100, L500.2500, L503.7505 ####[facility] [address] [place], [address] Creatinine [Mass/Vol] 0.95 mg/dL Normal 0.70-1.20 [facility] Comment on above: Performed By: #### L 100.0100, L500.2500, L503.7505 ####[facility] [address] [place], [address] ECRCL 75.77 ml/min Normal 50-250 [facility] Comment on above: Performed By: #### L 100.0100, L500.2500, L503.7505 ####[facility] [address] [place], [address] GFR/1.73 sq M.predicted among non-blacks MDRD (S/P/Bld) [Vol rate/Area] 87 mL/min/{1.73_m2} Normal >60 [facility] Comment on above: Result Comment: mL/m in/1.73m2 CKD-EPI Creatinine Equation (2020) Performed By: #### L 100.0100, L500.2500, L503.7505 ####[facility] [address] [place], [address] Glucose [Mass/Vol] 131 mg/dL High 70-99 [facility] Comment on above: Performed By: #### L 100.0100, L500.2500, L503.7505 ####[facility] [address] [place], [address] Potassium [Moles/Vol] 4.2 mmol/L Normal 3.3-5.1 [facility] Comment on above: Performed By: #### L 100.0100, L500.2500, L503.7505 ####[facility] [address] [place], [address] Sodium [Moles/Vol] 137 mmol/L Normal 133-145 [facility] Comment on above: Performed By: #### L 100.0100, L500.2500, L503.7505 ####[facility] [address] [place], [address] Urea nitrogen [Mass/Vol] 15 mg/dL Normal 4-19 [facility] Comment on above: Performed By: #### L 100.0100, L500.2500, L503.7505 ####[facility] [address] [place], [address] CBC W/Diff, Automatedon 03-0 2-202 Absolute Lymph 0.77 X10 3/uL Low 0.83-4.51 [facility] Comment on above: Performed By: #### L 100.0100, L500.2500, L503.7505 ####[facility] [address] [place], [address] Absolute Neut 5.6 X10 3/uL Normal 2.0-7.7 [facility] Comment on above: Performed By: #### L 100.0100, L500.2500, L503.7505 ####[facility] [address] [place], [address] Basophils/100 WBC (Bld) 0.3 % Normal 0-1 [facility] Comment on above: Performed By: #### L 100.0100, L500.2500, L503.7505 ####[facility] [address] [place], [address] Eosinophils/100 WBC (Bld) 0.1 % Normal 0-5 [facility] Comment on above: Performed By: #### L 100.0100, L500.2500, L503.7505 ####[facility] [address] [place], [address] Erythrocyte distribution width (RBC) [Ratio] 13.1 % Normal 11.6-14.6 [facility] Comment on above: Performed By: #### L 100.0100, L500.2500, L503.7505 ####[facility] [address] [place], [address] Hematocrit (Bld) [Volume fraction] 36.5 % Low 40-54 [facility] Comment on above: Performed By: #### L 100.0100, L500.2500, L503.7505 ####[facility] [address] [place], [address] Hemoglobin (Bld) [Mass/Vol] 12.6 g/dL Low 13.0-16.5 [facility] Comment on above: Performed By: #### L 100.0100, L500.2500, L503.7505 ####[facility] [address] [place], [address] IG% 0.600 Normal 0.0-0.9 [facility] Comment on above: Result Comment: IG% - Immature Granulocytes (promyelocytes, myelocytes and metamyelocytes) > 1% indicates that a LEFT SHIFT is Present. Performed By: #### L 100.0100, L500.2500, L503.7505 ####[facility] [address] [place], [address] Lymphocytes/100 WBC (Bld) 11.5 % Low 19-41 [facility] Comment on above: Performed By: #### L 100.0100, L500.2500, L503.7505 ####[facility] [address] [place], [address] MCH (RBC) [Entitic mass] 30.5 pg Normal 27.0-32.0 [facility] Comment on above: Performed By: #### L 100.0100, L500.2500, L503.7505 ####[facility] [address] [place], [address] MCHC (RBC) [Mass/Vol] 34.5 g/dL Normal 32-36 [facility] Comment on above: Performed By: #### L 100.0100, L500.2500, L503.7505 ####[facility] [address] [place], [address] MCV (RBC) [Entitic vol] 88.4 fL Normal 80-94 [facility] Comment on above: Performed By: #### L 100.0100, L500.2500, L503.7505 ####[facility] [address] [place], [address] Monocytes/100 WBC (Bld) 3.4 % Normal 0-10 [facility] Comment on above: Performed By: #### L 100.0100, L500.2500, L503.7505 ####[facility] [address] [place], [address] Neutrophils/100 WBC (Bld) 84.1 % High 47-70 [facility] Comment on above: Performed By: #### L 100.0100, L500.2500, L503.7505 ####[facility] [address] [place], [address] Nucleated RBC (Bld) [#/Vol] 0 10*3/uL Normal 0-5 [facility] Comment on above: Performed By: #### L 100.0100, L500.2500, L503.7505 ####[facility] [address] [place], [address] Platelet mean volume (Bld) [Entitic vol] 8.3 fL Normal 6.2-12.0 [facility] Comment on above: Performed By: #### L 100.0100, L500.2500, L503.7505 ####[facility] [address] [place], [address] Platelets (Bld) [#/Vol] 343 10*3/uL Normal 150-450 [facility] Comment on above: Performed By: #### L 100.0100, L500.2500, L503.7505 ####[facility] [address] [place], [address] RBC (Bld) [#/Vol] 4.13 10*6/uL Low 4.6-6.2 [facility] Comment on above: Performed By: #### L 100.0100, L500.2500, L503.7505 ####[facility] [address] [place], [address] RDW SD 42.3 fl Normal 35.1-43.9 [facility] Comment on above: Performed By: #### L 100.0100, L500.2500, L503.7505 ####[facility] [address] [place], [address] WBC (Bld) [#/Vol] 6.7 10*3/uL Normal 4.4-11.0 [facility] Comment on above: Performed By: #### L 100.0100, L500.2500, L503.7505 ####[facility] [address] [place], [address] Chest PA and Lateralon 07-10 Chest PA and Lateral [facility] Imaging Services [address] [place] [address] Chest PA and Lateral MR#: [id number] Acct: [id number] Name: TARA ARELLANO Alfonzo Rep #: [id number] : 1955 M 68 From: Ronak Henderson MD PCP: Dr. Andry Jean-Baptiste MD Status: [facility] ER Study: Chest PA and Lateral Date of Exam: 07/10/24 Exam# [id number] Ordering Dr: Fredo Smiley MD PROCEDURE: CHEST [...] Fredo Smiley MD; Dr. Andry Jean-Baptiste MD Canine Deputy: Signed Normal [facility] Emergency Department Summary on 07-10-2024 Emergency Department Summary [facility] Medical Records Department [address] [place] [address] Emergency Department Summary 07/10/24 MR#: [id number] Acct: [id number] Name: TARA ARELLANO Rep #: [id number] : 1955 68 From: Fredo Smiley MD [...] usually sees Dr. Teri Gross as his license issuer. He ran out of his Trelegy but did have Symbicort that he is using. He denies any weight gain or leg swelling but states that he is having increased dyspnea on exertion. Of note, he and his state that they recently had COVID and that he was recently getting over pneumonia as well. [facility] Medical History Respiratory failure Coronary artery [...] Father Can (more content not included)... Normal [facility] L503.7505on 07-10-2024 proBNP < 36 Normal <=900 [facility] Comment on above: Result Comment: Hear t Failure Unlikely: < 300 pg/mL Heart Failure Likely < 50 Years: > 450 pg/mL 50-75 Years: > 900 pg/mL >75 Years: > 1800 pg/mL Performed By: #### L 100.0100, L500.2500, L503.7505 ####[facility] [address] [place], [address] CNOVon 07-05-2024 CNOV Office Visit (FAMPWS ) TARA ARELLANO ([id number]) 1955 M Date Time Provider Department 07/05/24 11:40 AM JAIMIE JETT FAMPWS During your visit today, we recorded the following information about you: Temperature Pulse Blood pressure Weight 97.8 degrees 88/minute 110/54 83.5 kg Jaimie Jett, SPECTROGRAPH OPERATOR.COUNTER CASER 07/05/2024 12:45 PM Signed This is a [...] 2 weeks. (more content not included)... Normal [facility] CNOVon 07-01-2024 CNOV Office Visit (FAMPWS ) JONATHANTARA Alfonzo ([id number]) 1955 M Date Time Provider Department 07/01/24 1:40 PM LEW BIRDWS During your visit today, we recorded the following information about you: Pulse Blood pressure Weight 82/minute 120/71 79.4 kg Lew Bird APRN.COUNTER CASER 07/01/2024 1:55 PM Signed Chief Complaint Patient [...] tablet Take (more content not included)... Normal [facility] TARA ARELLANO ([id number]) 1955 M Date Time Provider Department 07/01/24 [...] at bedtime as needed (muscle spasms). - xihsxdrvvrs-npjvlvhjs-whptu ter (TRELEGY ELLIPTA) 100-62.5-25 mcg inhalation powder [...] on 07/01 (more content not included)... Normal [facility] XR CHEST 2V FRONTAL/LATon XR CHEST 2V [...] tissues: Unremarkable. IMPRESSION: No acute radiographic abnormality. Canine Deputy: [facility] Transcribe Date/Time: Jul 01 2024 2:06P Dictated by : CONCHITA BALBUENA MD This examination was interpreted and the report reviewed and electronically signed by: CONCHITA BALBUENA MD on Jul 01 2024 2:11PM EST [id number] Normal [facility] XR Chest PA and Lateralon IMPRESSION: No acute radiographic abnormality. Canine Deputy: [facility] Transcribe Date/Time: Jul 01 2024 2:06P Dictated by : CONCHITA BALBUENA MD This examination was interpreted and the report reviewed and electronically signed by: CONCHITA BALBUENA MD on Jul 01 2024 2:11PM [facility] DIVISION OF RADIOLOGY * * *Final Report* [...] soft tissues: Unremarkable. DIVISION OF RADIOLOGY Provider, [facility] - 07/01/2024 * * *Final Report* * [...] Unremarkable. IMPRESSION IMPRESSION: No acute radiographic abnormality. Canine Deputy: THONG Transcribe Date/Time: Jul 01 2024 2:06P Dictated by : CONCHITA BALBUENA MD This examination was interpreted and the report reviewed and electronically signed by: CONCHITA BALBUENA MD on Jul 01 2024 2:11PM [facility] Radiology Study observation (narrative) Grace pandya [facility] XR Chest PA and LateralOrder ed By: Ccf Provider on 07-01-2024 [facility] CNOVon 06-21-2024 CNOV Office Visit (FAMPWS ) TARA ARELLANO ([id number]) 1955 M Date Time Provider Department 06/21/24 3:40 PM JAIMIE JETT FAMPWS During your visit today, we recorded the following information about you: Temperature Pulse Respiration Blood pressure 101.4 degrees 105/minute 14/minute 120/72 Weight 82.6 kg Jaimie Jett, CATIA.COUNTER CASER 06/21/2024 3:59 PM Addendum This is a [...] spasms). f (more content not included)... Normal [facility] CT CHEST WO IVCONon 06-17-19 CT CHEST WO IVCON * * *Final Report* * * DATE OF EXAM: Jun 17 2024 9:11AM [facility] 0541 - CT CHEST WO IVCON / [...] 3 mm left upper lobe pulmonary nodule. Canine Deputy: THONG Transcribe Date/Time: Jun 19 2024 1:22P Dictated by : KERVIN SOLIS MD This examination was interpreted and the report reviewed and electronically signed by: KERVIN SOLIS MD on Jun 19 2024 1:27PM EST [id number] Normal [facility] CNOVon 06-15-2024 CNOV Office Visit (FAMPWS ) TARA ARELLANO ([id number]) 1955 M Date Time Provider Department 06/15/24 9:40 AM [facility] During your visit today, we recorded [...] General (Family Medicine) Lew Bird APRN.JEAN as Optical Laboratory Manager (Family Medicine) Irma Perez PA-C as Optical Laboratory Manager (Family Medicine) Cardiology last visit 10/2023 Dr. [...] fall o (more content not included)... Normal [facility] 25([place])D3 [facility] 20[facility] 25-hydroxyvitamin D3 [Mass/Vol] 65.9 ng/mL Normal 31.0-80.0 [facility] Comment on above: Order Comment: Speci men Type: BLOOD SPECIMENOrdering Facility: [facility] Address: [address] [place] [address] Performed By: #### 1 989-3 ####[facility] LABCLIA [id number] [facility] D20DLBBDTRGOJAS[place] [id number] [place] CBC W Auto Differential pane l (Bld)on 05-23-2024 Basophils (Bld) [#/Vol] 0.04 10*3/uL Normal <0.11 [facility] Comment on above: Order Comment: Speci men Type: BLOOD SPECIMENOrdering Facility: [facility] Address: [address] [place] [address] Performed By: #### 5 7021-8 ####[facility] MILLTOWNCLIA [id number] [place] [address] [place] Basophils/100 WBC (Bld) 0.9 % Normal [facility] Comment on above: Order Comment: Speci men Type: BLOOD SPECIMENOrdering Facility: [facility] Address: [address] [place] [address] Performed By: #### 5 7021-8 ####[facility] YOGIWKALILIA [id number] [place] [address] [place] Differential cell count method Nom (Bld) Auto Normal [facility] Comment on above: Order Comment: Speci men Type: BLOOD SPECIMENOrdering Facility: [facility] Address: [address] [place] [address] Performed By: #### 5 7021-8 ####[facility] YOGITHANHLIA [id number] [place] [address] [place] Eosinophils (Bld) [#/Vol] 0.30 10*3/uL Normal <0.46 [facility] Comment on above: Order Comment: Speci men Type: BLOOD SPECIMENOrdering Facility: [facility] Address: [address] [place] [address] Performed By: #### 5 7021-8 ####[facility] YOGIGarettKALILIA [id number] [place] [address] [place] Eosinophils/100 WBC (Bld) 6.4 % Normal [facility] Comment on above: Order Comment: Speci men Type: BLOOD SPECIMENOrdering Facility: [facility] Address: [address] [place] [address] Performed By: #### 5 7021-8 ####[facility] YOGIJAMAICANCLIA [id number] [place] [address] [place] Erythrocyte distribution width (RBC) [Ratio] 12.3 % Normal 11.5-15.0 [facility] Comment on above: Order Comment: Speci men Type: BLOOD SPECIMENOrdering Facility: [facility] Address: [address] [place] [address] Performed By: #### 5 7021-8 ####[facility] MARY JANE SHUBHAMDONALDLove [id number] [place] [address] [place] Hematocrit (Bld) [Volume fraction] 39.7 % Normal 39.0-51.0 [facility] Comment on above: Order Comment: Speci men Type: BLOOD SPECIMENOrdering Facility: [facility] Address: [address] [place] [address] Performed By: #### 5 7021-8 ####[facility]ENTERELINOR [id number] [place] [address] [place] Hemoglobin (Bld) [Mass/Vol] 14.0 g/dL Normal 13.0-17.0 [facility] Comment on above: Order Comment: Speci men Type: BLOOD SPECIMENOrdering Facility: [facility] Address: [address] [place] [address] Performed By: #### 5 7021-8 ####[facility] [id number] [place] [address] [place] Immature granulocytes (Bld) [#/Vol] 10*3/uL Normal <0.10 [facility] Comment on above: Order Comment: Speci men Type: BLOOD SPECIMENOrdering Facility: [facility] Address: [address] [place] [address] Performed By: #### 5 7021-8 ####[facility]ENTERNCLIA [id number] [place] [address] [place] Immature granulocytes/100 WBC (Bld) 0.4 % Normal [facility] Comment on above: Order Comment: Speci men Type: BLOOD SPECIMENOrdering Facility: [facility] Address: [address] [place] [address] Performed By: #### 5 7021-8 ####[facility]ENTERNCLIA [id number] [place] [address] [place] Lymphocytes (Bld) [#/Vol] 1.43 10*3/uL Normal 1.00-4.00 [facility] Comment on above: Order Comment: Speci men Type: BLOOD SPECIMENOrdering Facility: [facility] Address: [address] [place] [address] Performed By: #### 5 7021-8 ####[facility] CENTERNCA [id number] [place] [address] [place] Lymphocytes/100 WBC (Bld) 30.4 % Normal [facility] Comment on above: Order Comment: Speci men Type: BLOOD SPECIMENOrdering Facility: [facility] Address: [address] [place] [address] Performed By: #### 5 7021-8 ####[facility] HOSPITALLI [id number] [place] [address] [place] MCH (RBC) [Entitic mass] 31.1 pg Normal 26.0-34.0 [facility] Comment on above: Order Comment: Speci men Type: BLOOD SPECIMENOrdering Facility: [facility] Address: [address] [place] [address] Performed By: #### 5 7021-8 ####[facility] HOSPITALLIA [id number] [place] [address] [place] MCHC (RBC) [Mass/Vol] 35.3 g/dL Normal 30.5-36.0 [facility] Comment on above: Order Comment: Speci men Type: BLOOD SPECIMENOrdering Facility: [facility] Address: [address] [place] [address] Performed By: #### 5 7021-8 ####[facility]ENTERNCLI [id number] [place] [address] [place] MCV (RBC) [Entitic vol] 88.2 fL Normal 80.0-100.0 [facility] Comment on above: Order Comment: Speci men Type: BLOOD SPECIMENOrdering Facility: [facility] Address: [address] [place] [address] Performed By: #### 5 7021-8 ####[facility] [id number] [place] [address] [place] Monocytes (Bld) [#/Vol] 0.34 10*3/uL Normal <0.87 [facility] Comment on above: Order Comment: Speci men Type: BLOOD SPECIMENOrdering Facility: [facility] Address: [address] [place] [address] Performed By: #### 5 7021-8 ####[facility] [id number] [place] [address] [place] Monocytes/100 WBC (Bld) 7.2 % Normal [facility] Comment on above: Order Comment: Speci men Type: BLOOD SPECIMENOrdering Facility: [facility] Address: [address] [place] [address] Performed By: #### 5 7021-8 ####[facility] [id number] [place] [address] [place] Neutrophils (Bld) [#/Vol] 2.57 10*3/uL Normal 1.45-7.50 [facility] Comment on above: Order Comment: Speci men Type: BLOOD SPECIMENOrdering Facility: [facility] Address: [address] [place] [address] Performed By: #### 5 7021-8 ####[facility] [id number] [place] [address] [place] Neutrophils/100 WBC (Bld) 54.7 % Normal [facility] Comment on above: Order Comment: Speci men Type: BLOOD SPECIMENOrdering Facility: [facility] Address: [address] [place] [address] Performed By: #### 5 7021-8 ####[facility] CENTERNCPILAR [id number] [place] [address] [place] Nucleated RBC (Bld) [#/Vol] 10*3/uL Normal <0.01 [facility] Comment on above: Order Comment: Speci men Type: BLOOD SPECIMENOrdering Facility: [facility] Address: [address] [place] [address] Performed By: #### 5 7021-8 ####[facility]ENTERNCSP[facility] [id number] [place] [address] [place] Nucleated RBC/100 WBC (Bld) [Ratio] 0.0 /100 WBC Normal [facility] Comment on above: Order Comment: Speci men Type: BLOOD SPECIMENOrdering Facility: [facility] Address: [address] [place] [address] Performed By: #### 5 7021-8 ####[facility] [id number] [place] [address] [place] Platelet mean volume (Bld) [Entitic vol] 8.4 fL Low 9.0-12.7 [facility] Comment on above: Order Comment: Speci men Type: BLOOD SPECIMENOrdering Facility: [facility] Address: [address] [place] [address] Performed By: #### 5 7021-8 ####[facility]PITALA [id number] [place] [address] [place] Platelets (Bld) [#/Vol] 227 10*3/uL Normal 150-400 [facility] Comment on above: Order Comment: Speci men Type: BLOOD SPECIMENOrdering Facility: [facility] Address: [address] [place] [address] Performed By: #### 5 7021-8 ####[facility] YOGIGarettNCLIA [id number] [place] [address] [place] RBC (Bld) [#/Vol] 4.50 10*6/uL Normal 4.20-6.00 [facility] Comment on above: Order Comment: Speci men Type: BLOOD SPECIMENOrdering Facility: [facility] Address: [address] [place] [address] Performed By: #### 5 7021-8 ####[facility]ENTERNCLIA [id number] [place] [address] [place] WBC (Bld) [#/Vol] 4.70 10*3/uL Normal 3.70-11.00 [facility] Comment on above: Order Comment: Speci men Type: BLOOD SPECIMENOrdering Facility: [facility] Address: [address] [place] [address] Performed By: #### 5 7021-8 ####[facility]ENTERNCLIA [id number] [place] [address] [place] Comprehensive metabolic 2000 panelon 05-23-2024 Albumin [Mass/Vol] 4.5 g/dL Normal 3.9-4.9 [facility] Comment on above: Order Comment: Speci men Type: BLOOD SPECIMENOrdering Facility: [facility] Address: [address] [place], [place] [address] Performed By: #### 2 4323-8 ####[facility]ENTERNCLIA [id number] [place] [address] [place] ALP [Catalytic activity/Vol] 68 U/L Normal 38-113 [facility] Comment on above: Order Comment: Speci men Type: BLOOD SPECIMENOrdering Facility: [facility] Address: [address] [place] [address] Performed By: #### 2 4323-8 ####[facility] MILLTOWNCLIA [id number] [place] [address] [place] ALT [Catalytic activity/Vol] 35 U/L Normal 10-54 [facility] Comment on above: Order Comment: Speci men Type: BLOOD SPECIMENOrdering Facility: [facility] Address: [address] [place] [address] Performed By: #### 2 4323-8 ####[facility] MILLTOWNCLIA [id number] [place] [address] [place] Anion gap [Moles/Vol] 8 mmol/L Normal 8-15 [facility] Comment on above: Order Comment: Speci men Type: BLOOD SPECIMENOrdering Facility: [facility] Address: [address] [place] [address] Performed By: #### 2 4323-8 ####[facility] MILLTOWNCLIA [id number] [place] [address] [place] AST [Catalytic activity/Vol] 30 U/L Normal 14-40 [facility] Comment on above: Order Comment: Speci men Type: BLOOD SPECIMENOrdering Facility: [facility] Address: [address] [place] [address] Performed By: #### 2 4323-8 ####[facility] MILLTOWNCLIA [id number] [place] [address] [place] Bilirubin [Mass/Vol] 0.3 mg/dL Normal 0.2-1.3 [facility] Comment on above: Order Comment: Speci men Type: BLOOD SPECIMENOrdering Facility: [facility] Address: [address] [place] [address] Performed By: #### 2 4323-8 ####[facility] MILLTOWNCLIA [id number] [place] [address] [place] Calcium [Mass/Vol] 9.8 mg/dL Normal 8.5-10.2 [facility] Comment on above: Order Comment: Speci men Type: BLOOD SPECIMENOrdering Facility: [facility] Address: [address] [place] [address] Performed By: #### 2 4323-8 ####[facility]OUTHSIDEWNCLIA [id number] [place] [address] [place] Chloride [Moles/Vol] 101 mmol/L Normal 98-107 [facility] Comment on above: Order Comment: Speci men Type: BLOOD SPECIMENOrdering Facility: [facility] Address: [address] [place] [address] Performed By: #### 2 4323-8 ####[facility]ENTERNCLIA [id number] [place] [address] [place] CO2 [Moles/Vol] 28 mmol/L Normal 22-30 [facility] Comment on above: Order Comment: Speci men Type: BLOOD SPECIMENOrdering Facility: [facility] Address: [address] [place] [address] Performed By: #### 2 4323-8 ####[facility]ITAL[facility] [id number] [place] [address] [place] Creatinine [Mass/Vol] 0.86 mg/dL Normal 0.73-1.22 [facility] Comment on above: Order Comment: Speci men Type: BLOOD SPECIMENOrdering Facility: [facility] Address: [address] [place] [address] Performed By: #### 2 4323-8 ####[facility]ENTERNCLIA [id number] [place] [address] [place] Creatinine and Glomerular filtration rate.predicted panel (S/P/Bld) 94 mL/min/1.73m??? Normal >=60 [facility] Comment on above: Order Comment: Speci men Type: BLOOD SPECIMENOrdering Facility: [facility] Address: [address] [place] [address] Result Comment: Shea mated Glomerular Filtration Rate [...] actual GFR. Performed By: #### 2 4323-8 ####[facility] [id number] [place] [address] [place] Glucose [Mass/Vol] 113 mg/dL High 74-99 [facility] Comment on above: Order Comment: Geo fernandez Type: BLOOD SPECIMENOrdering Facility: [facility] Address: [address] [place] [address] Result Comment: The [place] Diabetes Association (ADA) provides guidance for cutoff [...] Standards of Medical Care in Diabetes 2016, [place] [employer] Association. Diabetes Care. 2016.39(Suppl 1). Performed By: #### 2 4323-8 ####[facility] [id number] [place] [address] [place] Potassium [Moles/Vol] 4.2 mmol/L Normal 3.7-5.1 [facility] Comment on above: Order Comment: Geo fernandez Type: BLOOD SPECIMENOrdering Facility: [facility] Address: [address] [place] [id number] Performed By: #### 2 4323-8 ####[facility] HOSPITALLIA [id number] [place] [address] [place] Protein [Mass/Vol] 6.5 g/dL Normal 6.3-8.0 [facility] Comment on above: Order Comment: Speci men Type: BLOOD SPECIMENOrdering Facility: [facility] Address: [address] [place] [address] Performed By: #### 2 4323-8 ####[facility]ENTERNCLIA [id number] [place] [address] [place] Sodium [Moles/Vol] 137 mmol/L Normal 136-144 [facility] Comment on above: Order Comment: Speci men Type: BLOOD SPECIMENOrdering Facility: [facility] Address: [address] [place] [address] Performed By: #### 2 4323-8 ####[facility]ENTERNCLIA [id number] [place] [address] [place] Urea nitrogen [Mass/Vol] 14 mg/dL Normal 9-24 [facility] Comment on above: Order Comment: Speci men Type: BLOOD SPECIMENOrdering Facility: [facility] Address: [address] [place] [address] Performed By: #### 2 4323-8 ####[facility] HOSPITALLIA [id number] [place] [address] [place] Ferritin SerPl-mCncon 2024 Ferritin [Mass/Vol] 187.0 ng/mL Normal 30.3-565.7 [facility] Comment on above: Order Comment: Speci men Type: BLOOD SPECIMENOrdering Facility: [facility] Address: [address] [place] [address] Performed By: #### L IPNF, 2276-4, 95443-3 ####[facility] LABCLIA [id number] [place] [address] [place] Folate SerPl-mCncon 05-23-19 25 Folate [Mass/Vol] 15.5 ng/mL Normal >4.7 [facility] Comment on above: Order Comment: Geo fernandez Type: BLOOD SPECIMENOrdering Facility: [facility] Address: [address] [place] [address] Performed By: #### 2 132-9, 2284-8 ####[facility] LABCLIA [id number] [place] [address] [place] HbA1c (Bld)on 05-23-2024 Average glucose Estimated from glycated hemoglobin (Bld) [Mass/Vol] 97 mg/dL Normal [facility] Comment on above: Order Comment: Geo fernandez Type: BLOOD SPECIMENOrdering Facility: [facility] Address: [address] [place] [address] Result Comment: eAG: (Estimated average glucose) is a calculated value from HgbA1c and is nutrition representative of the average blood glucose level in the last 2-3 month period. Performed By: #### 5 5454-3 ####[facility] LABCLIA [id number] [address] [facility] HbA1c (Bld) [Mass fraction] 5.0 % Normal 4.3-5.6 [facility] Comment on above: Order Comment: Geo fernandez Type: BLOOD SPECIMENOrdering Facility: [facility] Address: [address] [place] [address] Result Comment: [place] Diabetes Association guidelines indicate that patients with HgbA1c in the range 5.7-6.4% are at increased risk for development of diabetes, and intervention by lifestyle modification may be beneficial. HgbA1c greater or equal to 6.5% is considered diagnostic of diabetes. Performed By: #### 5 5454-3 ####[facility] LABCLIA [id number] [place] [address] [place] Iron and Iron binding capaci ty panelon 05-23-2024 Iron [Mass/Vol] 78 ug/dL Normal 41-186 [facility] Comment on above: Order Comment: Speci men Type: BLOOD SPECIMENOrdering Facility: [facility] Address: [address] [place] [address] Performed By: #### L TODD, 6-4, 47821-4 ####[facility] LABCLIA [id number] [address] [address] [place] Iron binding capacity [Mass/Vol] 360 ug/dL Normal 232-386 [facility] Comment on above: Order Comment: Speci men Type: BLOOD SPECIMENOrdering Facility: [facility] Address: [address] [place] [address] Performed By: #### L TODD, 2275-08, 88405-5 ####[facility] LABIA [id number] [place] [address] [place] Iron/TIBC [Molar ratio] 21.7 % Normal 15.0-57.0 [facility] Comment on above: Order Comment: Speci men Type: BLOOD SPECIMENOrdering Facility: [facility] Address: [address] [place] [address] Performed By: #### L TODD, 2275-08, 11625-6 ####[facility] LABIA [id number] [address] [address] [place] LIPID PANEL, NONFASTINGon Cholesterol [Mass/Vol] 165 mg/dL Normal <200 [facility] Comment on above: Order Comment: Speci men Type: BLOOD SPECIMENOrdering Facility: [facility] Address: [address] [place], [place] [address] Result Comment: <200 mg/dL, Desirable 200-239 mg/dL, Borderline high >239 mg/dL, High Performed By: #### L UTENF, 2275-08, 35688-2 ####[facility] LABIA [id number] [place] [id number] [place] HDL CHOLESTEROL, NF 36 mg/dL Low >39 [facility] Comment on above: Order Comment: Geo jim Type: BLOOD SPECIMENOrdering Facility: [facility] Address: [address] [place] [address] Result Comment: 40-5 9 mg/dL, Acceptable >59 mg/dL, High: Negative risk factor for coronary heart disease <40 mg/dL, Low: Positive risk factor for coronary heart disease Performed By: #### L IPNF, 6-4, 95459-3 ####[facility] LABCLIA [id number] [address] LDL CHOLESTEROL, NF 71 mg/dL Normal <100 [facility] Comment on above: Order Comment: Martellcristiano fernandez Type: BLOOD SPECIMENOrdering Facility: [facility] Address: [address] [place] [address] Result Comment: <100 mg/dL, Optimal 100-129 mg/dL, Near optimal/above optimal 130-159 mg/dL, Borderline high 160-189 mg/dL, High >189 mg/dL, Very high Secondary prevention optimal LDL Cholesterol levels are recommended to be < 70 mg/dL Performed By: #### L IPNF, 6-4, 94089-9 ####[facility] LABCLIA [id number] [address] LDL/HDL RATIO, NF 1.97 mg/dL Normal <2.54 [facility] Comment on above: Order Comment: Geo fernandez Type: BLOOD SPECIMENOrdering Facility: [facility] Address: [address] [place] [address] Result Comment: Refe rence: 1. National Cholesterol Education Program ATP III Guideline At-A-Glance Quick Desk Reference: National Heart, Lung, and Blood [place]. National Institutes of Health. 2001: NIH Publication No. 01-3305. 2. An International Atherosclerosis Society position paper: global recommendations for the management of dyslipidemia: executive summary, Atherosclerosis. 2014: 232(2):410-413. Performed By: #### L IPNF, 2276-4, 55451-1 ####[facility] LABCLIA [id number] [place] [address] [place] NON HDL CHOL, NF 129 mg/dL Normal <130 [facility] Comment on above: Order Comment: Speci men Type: BLOOD SPECIMENOrdering Facility: [facility] Address: [address] [place] [address] Result Comment: <130 mg/dL, Optimal 130-159 mg/dL, Near optimal/above optimal 160-189 mg/dL, Borderline high 190-219 mg/dL, High >219 mg/dL, Very high Secondary prevention optimal non HDL Cholesterol levels are recommended to be <100 mg/dL Performed By: #### L IPNF, 2276-4, 18693-5 ####[facility] LABCLIA [id number] [place] [address] [place] T CHOL/HDL RATIO NF 4.58 mg/dL Normal <5.10 [facility] Comment on above: Order Comment: Speci men Type: BLOOD SPECIMENOrdering Facility: [facility] Address: [address] [place] [address] Performed By: #### L IPNF, 2276-4, 99068-3 ####[facility] LABCLIA [id number] [place] [address] [place] TRIGLYCERIDES, NF 289 mg/dL High <150 [facility] Comment on above: Order Comment: Speci men Type: BLOOD SPECIMENOrdering Facility: [facility] Address: [address] [place] [address] Result Comment: <150 mg/dL, Normal 150-199 mg/dL, Borderline high 200-499 mg/dL, High >499 mg/dL, Very high Performed By: #### L IPNF, 2276-4, 68011-1 ####[facility] LABCLIA [id number] [place] [address] [place] VLDL CHOLESTEROL, NF 58 mg/dL High <30 [facility] Comment on above: Order Comment: Speci men Type: BLOOD SPECIMENOrdering Facility: [facility] Address: [address] [place] [address] Performed By: #### L IPNF, 2276-4, 12060-6 ####[facility] LABCLIA [id number] [place] [address] [place] PSA SerPl-mCncon 05-23-2024 Prostate specific Ag [Mass/Vol] 0.29 ng/mL Normal <2.60 [facility] Comment on above: Order Comment: Speci men Type: BLOOD SPECIMENOrdering Facility: [facility] Address: [address] [place] [address] Result Comment: Tota l PSA test methodology used is the Electrochemiluminescence Immunoassay by [employer]. Total PSA values by differing methodologies cannot be interchanged. Performed By: #### 2 857-1 ####[facility] LABIA [id number] [place] [address] [place] Urinalysis complete panel (U )on 05-23-2024 Bacteria LM.HPF (Urine sed) [#/Area] Negative Normal Negative [facility] Comment on above: Order Comment: Speci men Type: URINE SPECIMENOrdering Facility: [facility] Address: [address] [place] [address] Performed By: #### 2 4356-8 ####[facility] LABCLIA [id number] [place] [address] [place] Bilirubin Ql (U) Negative Normal Negative [facility] Comment on above: Order Comment: Speci men Type: URINE SPECIMENOrdering Facility: [facility] Address: [address] [place] [address] Performed By: #### 2 4356-8 ####[facility] LABIA [id number] [place] [address] [place] Clarity (Unsp spec) Clear Normal Clear [facility] Comment on above: Order Comment: Speci men Type: URINE SPECIMENOrdering Facility: [facility] Address: [address] [place] [address] Performed By: #### 2 4356-8 ####[facility] LABCLIA [id number] [place] [address] [place] Color (U) Yellow Normal Yellow [facility] Comment on above: Order Comment: Speci men Type: URINE SPECIMENOrdering Facility: [facility] Address: [address] [place] [address] Performed By: #### 2 4356-8 ####[facility] LABCLIA [id number] [place] [address] [place] Epithelial cells LM.HPF (Urine sed) [#/Area] None Seen Normal [facility] Comment on above: Order Comment: Speci men Type: URINE SPECIMENOrdering Facility: [facility] Address: [address] [place] [address] Performed By: #### 2 4356-8 ####[facility] LABCLIA [id number] [place] [address] [place] Glucose Test strip (U) [Mass/Vol] Negative Normal Negative [facility] Comment on above: Order Comment: Speci men Type: URINE SPECIMENOrdering Facility: [facility] Address: [address] [place] [address] Performed By: #### 2 4356-8 ####[facility] LABIA [id number] [place] [address] [place] Hemoglobin Ql (U) Negative Normal Negative [facility] Comment on above: Order Comment: Speci men Type: URINE SPECIMENOrdering Facility: [facility] Address: [address] [place] [address] Performed By: #### 2 4356-8 ####[facility] LABCLIA [id number] [place] [address] [place] Hyaline casts (Urine sed) [#/Area] 0 /[LPF] Normal 0 /LPF [facility] Comment on above: Order Comment: Speci men Type: URINE SPECIMENOrdering Facility: [facility] Address: [address] [place] [address] Performed By: #### 2 4356-8 ####[facility] LABCLIA [id number] [place] [address] [place] Ketones Ql (U) Negative Normal Negative [facility] Comment on above: Order Comment: Speci men Type: URINE SPECIMENOrdering Facility: [facility] Address: [address] [place] [address] Performed By: #### 2 4356-8 ####[facility] LABCLIA [id number] [place] [address] [place] Leukocyte esterase Test strip Ql (U) Negative Normal Negative [facility] Comment on above: Order Comment: Speci men Type: URINE SPECIMENOrdering Facility: [facility] Address: [address] [place] [address] Performed By: #### 2 4356-8 ####[facility] LABCLIA [id number] [place] [address] [place] Nitrite Ql (U) Negative Normal Negative [facility] Comment on above: Order Comment: Speci men Type: URINE SPECIMENOrdering Facility: [facility] Address: [address] [place] [address] Performed By: #### 2 4356-8 ####[facility] LABCLIA [id number] [place] [address] [place] pH (U) 6.5 [pH] Normal <8.5 [facility] Comment on above: Order Comment: Speci men Type: URINE SPECIMENOrdering Facility: [facility] Address: [address] [place] [address] Performed By: #### 2 4356-8 ####[facility] LABCLIA [id number] [address] [place] [address] [place] Protein (U) [Mass/Vol] Negative Normal Negative Cl [facility] Comment on above: Order Comment: Speci men Type: URINE SPECIMENOrdering Facility: [facility] Address: [address] [place] [address] Performed By: #### 2 4356-8 ####[facility] LABIA [id number] [place] [address] [place] RBC LM.HPF (Urine sed) [#/Area] 0-2 /HPF Normal 0-2 /HPF [facility] Comment on above: Order Comment: Speci men Type: URINE SPECIMENOrdering Facility: [facility] Address: [address] [place] [address] Performed By: #### 2 4356-8 ####[facility] [id number] [place] [address] [place] Specific gravity (U) [Rel density] 1.015 Normal 1.005-1.03 0 [facility] Comment on above: Order Comment: Speci men Type: URINE SPECIMENOrdering Facility: [facility] Address: [address] [place] [address] Performed By: #### 2 4356-8 ####[facility] [id number] [address] [place] Urobilinogen Ql (U) 0.2 EU/dL Normal 0.2-1.0 EU/dL [facility] Comment on above: Order Comment: Speci men Type: URINE SPECIMENOrdering Facility: [facility] Address: [address] [place] [address] Performed By: #### 2 4356-8 ####[facility] LABIA [id number] [place] [address] [place] WBC LM.HPF (Urine sed) [#/Area] 0-5 /HPF Normal 0-5 /HPF [facility] Comment on above: Order Comment: Speci men Type: URINE SPECIMENOrdering Facility: [facility] Address: [address] [place] [address] Performed By: #### 2 4356-8 ####[facility] [id number] [place] [address] [place] Vit A SerPl-mCncon Retinol [Mass/Vol] 0.62 mg/L Normal 0.30-1.20 [facility] Comment on above: Order Comment: Speci men Type: BLOOD SPECIMENOrdering Facility: [facility] Address: [address] [place] [address] Result Comment: Test performed at [employer] in [place], [place]. This test was developed and its performance characteristics determined by [employer]. It has not been cleared or approved by the US Food and Drug Administration. This test was performed in a CLIA certified laboratory and is intended for clinical purposes. Performed By: #### 2 923-1 ####[facility] [id number] [place] [address] [place] Vit B12 SerPl-mCncon 025 Cobalamin (Vitamin B12) [Mass/Vol] 889 pg/mL Normal 232-1245 [facility] Comment on above: Order Comment: Speci men Type: BLOOD SPECIMENOrdering Facility: [facility] Address: [address] [place] [address] Performed By: #### 2 132-9, 2284-8 ####[facility] [id number] [place] [address] [place] Zinc SerPl-mCncon 05-23-2024 Zinc [Mass/Vol] 56 ug/dL Low 60-120 [facility] Comment on above: Order Comment: Speci men Type: BLOOD SPECIMENOrdering Facility: [facility] Address: [address] [place] [address] Result Comment: This test was developed, and its performance characteristics determined by the [facility] Department of Pathology and Laboratory Medicine. It has not been cleared or approved by the FDA. The [facility] Department of Pathology and Laboratory Medicine is regulated under CLIA as qualified to perform high-complexity testing. This test is used for clinical purposes. It should not be regarded as investigational or for research. Performed By: #### 5 763-8 ####[facility] LABCLIA [id number] TIANNA NGUYENKAISER MANTECA MEDICAL CENTERMarisabel [place] [id number] [facility] CNOVon 05-19-2024 CNOV Office Visit (PODIWS ) TARA ARELLANO ([id number]) 1955 M Date Time Provider Department 05/19/24 [...] hours as needed for wheezing/shortness of breath. umgasfidlgn-yoyoeezsv-uttju ter (TRELEGY ELLIPTA) 100-62.5-25 mcg inhalation powder [...] daily. EP (more content not included)... Normal [facility] XR FOOT 3V AP/LAT/OBL LTon 0 05-19-2024 [...] Scattered degenerative changes without acute osseous findings. Canine Deputy: PSCB Transcribe Date/Time: May 22 2024 11:34A Dictated by : TO NIEVES MD This examination was interpreted and the report reviewed and electronically signed by: TO NIEVES MD on May 22 2024 11:36AM EST [id number] Normal [facility] 05-17-2024 [facility] Telephone (PULWS) TARA ARELLANO ([id number]) 1955 M Date Time Provider Department 05/17/24 TERI GROSS [facility] During your visit today, we recorded [...] Diagnosis:Lung nodules [R91.8] Order(s):CT CHEST WO ZACHARY [[id number]] Order #: [id number] FUTURE Prescriptions as of 05/17/2024 - omeprazole [...] as needed for wheezing/shortness of breath. - veqmuvgaxgj-mebfizdll-qimeo ter (TRELEGY ELLIPTA) 100-62.5-25 mcg inhalation powder [...] Status:Closed by TERI GROSS on 05/17/24 Normal [facility] CNOVon 04-06-2024 CNOV Office Visit (FAMPWS ) TARA ARELLANO ([id number]) 1955 M Date Time Provider Department 04/06/24 11:20 AM ANDRY JEAN-BAPTISTE FAMPWS During your visit today, we recorded the following information about you: Pulse Respiration Blood pressure Weight 72/minute 16/minute 122/62 81.2 kg Andry Jean-Baptiste MD 04/06/2024 12:47 PM Signed Chief Complaint Patient presents with: ER F/U HPI Tara Arellano is a 68 year old male who presents here today for [facility] ER follow up Patient was in [facility] ER on 03/29/2024 for lower extremity [...] to Visit (more content not included)... Normal [facility] Basic Metabolic Profile (BMP )on 03-29-2024 BUN/CRE 19.8 RATIO Normal 10-20 [facility] Comment on above: Performed By: #### L 501.3620, L500.2500, L100.0500 ####[facility] [address] [place], [address] CA,Total 8.8 mg/dL Normal 8.5-10.1 [facility] Comment on above: Performed By: #### L 501.3620, L500.2500, L100.0500 ####[facility] [address] [place], [address] Chloride [Moles/Vol] 111 mmol/L High 98-107 [facility] Comment on above: Performed By: #### L 501.3620, L500.2500, L100.0500 ####[facility] [address] [place], [address] CO2 [Moles/Vol] 25.0 mmol/L Normal 21.0-32.0 [facility] Comment on above: Performed By: #### L 501.3620, L500.2500, L100.0500 ####[facility] [address] [place], [address] Creatinine [Mass/Vol] 0.96 mg/dL Normal 0.70-1.30 [facility] Comment on above: Result Comment: The validity of the calculated GFR GFRAA in patients over 70 years has not been determined. Clinical correlation is essential. Performed By: #### L 501.3620, L500.2500, L100.0500 ####[facility] [address] [place], [address] ECRCL 74.99 ml/min Normal [facility] Comment on above: Performed By: #### L 501.3620, L500.2500, L100.0500 ####[facility] [address] [place], [address] EST GFR - AA 100 mL/min Normal >60 [facility] Comment on above: Result Comment: Afri can Moz[place]ican GFR Calc Performed By: #### L 501.3620, L500.2500, L100.0500 ####[facility] [address] [place], [address] GAP 5 Normal 5-15 [facility] Comment on above: Performed By: #### L 501.3620, L500.2500, L100.0500 ####[facility] [address] [place], [address] GFR/1.73 sq M.predicted among non-blacks MDRD (S/P/Bld) [Vol rate/Area] 83 mL/min/{1.73_m2} Normal >60 [facility] Comment on above: Result Comment: Non- GFR Calc Performed By: #### L 501.3620, L500.2500, L100.0500 ####[facility] [address] [place], [address] Glucose [Mass/Vol] 102 mg/dL Normal 74-106 [facility] Comment on above: Result Comment: Fast ing Glucose result from 100 to 125 mg/dL suggests IMPAIRED HOMEOSTASIS per A.D.A. criteria. Performed By: #### L 501.3620, L500.2500, L100.0500 ####[facility] [address] [place], [address] Potassium [Moles/Vol] 4.0 mmol/L Normal 3.5-5.1 [facility] Comment on above: Performed By: #### L 501.3620, L500.2500, L100.0500 ####[facility] [address] [place], [address] Sodium [Moles/Vol] 141 mmol/L Normal 136-145 [facility] Comment on above: Performed By: #### L 501.3620, L500.2500, L100.0500 ####[facility] [address] [place], [address] Urea nitrogen [Mass/Vol] 19 mg/dL High 7-18 [facility] Comment on above: Performed By: #### L 501.3620, L500.2500, L100.0500 ####[facility] [address] [place], [address] CBC-Complete Blood Cnt No Di ffon 03-29-2024 Erythrocyte distribution width (RBC) [Ratio] 12.8 % Normal 11.6-14.6 [facility] Comment on above: Performed By: #### L 501.3620, L500.2500, L100.0500 ####[facility] [address] [place], [address] Hematocrit (Bld) [Volume fraction] 35.1 % Low 40-54 [facility] Comment on above: Performed By: #### L 501.3620, L500.2500, L100.0500 ####[facility] [address] [place], [address] Hemoglobin (Bld) [Mass/Vol] 12.4 g/dL Low 13.0-16.5 [facility] Comment on above: Performed By: #### L 501.3620, L500.2500, L100.0500 ####[facility] [address] [place], [address] MCH (RBC) [Entitic mass] 31.1 pg Normal 27.0-32.0 [facility] Comment on above: Performed By: #### L 501.3620, L500.2500, L100.0500 ####[facility] [address] [place], [address] MCHC (RBC) [Mass/Vol] 35.3 g/dL Normal 32-36 [facility] Comment on above: Performed By: #### L 501.3620, L500.2500, L100.0500 ####[facility] [address] [place], [address] MCV (RBC) [Entitic vol] 88.0 fL Normal 80-94 [facility] Comment on above: Performed By: #### L 501.3620, L500.2500, L100.0500 ####[facility] [address] [place], [address] Platelet mean volume (Bld) [Entitic vol] 8.5 fL Normal 6.2-12.0 [facility] Comment on above: Performed By: #### L 501.3620, L500.2500, L100.0500 ####[facility] [address] [place], [address] Platelets (Bld) [#/Vol] 226 10*3/uL Normal 150-450 [facility] Comment on above: Performed By: #### L 501.3620, L500.2500, L100.0500 ####[facility] [address] [place], [address] RBC (Bld) [#/Vol] 3.99 10*6/uL Low 4.6-6.2 [facility] Comment on above: Performed By: #### L 501.3620, L500.2500, L100.0500 ####[facility] [address] [place], [address] RDW SD 41.1 fl Normal 35.1-43.9 [facility] Comment on above: Performed By: #### L 501.3620, L500.2500, L100.0500 ####[facility] [address] [place], [address] WBC (Bld) [#/Vol] 5.1 10*3/uL Normal 4.4-11.0 [facility] Comment on above: Performed By: #### L 501.3620, L500.2500, L100.0500 ####[facility] [address] [place], [address] CPK Total, Creatine Kinaseon 03-29-2024 CPK TOTAL 236 U/L Normal 39-308 [facility] Comment on above: Performed By: #### L 501.3620, L500.2500, L100.0500 ####[facility] [address] [place], [address] Emergency Department Summary on 03-29-2024 Emergency Department Summary [facility] Medical Records Department [address] [place] [address] Emergency Department Summary 03/29/24 MR#: [id number] Acct: [id number] Name: TARA ARELLANO Rep #: [id number] : 1955 68 From: Donny Duval DO PCP: Dr. Andry Jean-Baptiste MD Status:DEP ER Location: ED HPI History of Present Illness Chief Complaint: Lower Extremity Injury [facility] Medical History Respiratory failure Coronary artery [...] Exam Const (more content not included)... Normal [facility] CNOVon 12-08-2023 CNOV Office Visit (FAMPWS ) JONATHANTARA ([id number]) 1955 M Date Time Provider Department 12/08/23 9[facility]40 [facility] During your visit today, we recorded [...] on File Prior to Visit Medication Sig mzkioqyjuvn-tesoudzdc-vsdfu ter (TRELEGY ELLIPTA) 100-62.5-25 mcg inhalation powder Inhale 1 Puff as instructed once daily. triamcinolone acetonide (more content not included)... Normal [facility] HbA1c (Bld)on 11-27-2023 Average glucose Estimated from glycated hemoglobin (Bld) [Mass/Vol] 100 mg/dL Normal [facility] Comment on above: Order Comment: Speci men Type: BLOOD SPECIMENOrdering Facility: [facility] Address: [address] [place] [address] Result Comment: eAG: (Estimated average glucose) is a calculated value from HgbA1c and is nutrition representative of the average blood glucose level in the last 2-3 month period. Performed By: #### 5 5454-3 ####[facility] LABCLIA [id number] [place] [address] [place] HbA1c (Bld) [Mass fraction] 5.1 % Normal 4.3-5.6 [facility] Comment on above: Order Comment: Speci men Type: BLOOD SPECIMENOrdering Facility: [facility] Address: [address] [place] [address] Result Comment: Amer [place] Diabetes Association guidelines indicate that patients with HgbA1c in the range 5.7-6.4% are at increased risk for development of diabetes, and intervention by lifestyle modification may be beneficial. HgbA1c greater or equal to 6.5% is considered diagnostic of diabetes. Performed By: #### 5 5454-3 ####[facility] LABCLIA [id number] [place] [address] [place] LIPID PANEL, NONFASTINGon Cholesterol [Mass/Vol] 143 mg/dL Normal <200 [facility] Comment on above: Order Comment: Geo men Type: BLOOD SPECIMENOrdering Facility: [facility] Address: [address] [place] [address] Result Comment: <200 mg/dL, Desirable 200-239 mg/dL, Borderline high >239 mg/dL, High Performed By: #### L IPNF ####[facility] LABCLIA [id number] [place] [address] [place] HDL CHOLESTEROL, NF 35 mg/dL Low >39 [facility] Comment on above: Order Comment: Geo men Type: BLOOD SPECIMENOrdering Facility: [facility] Address: [address] [place] [address] Result Comment: 40-5 9 mg/dL, Acceptable >59 mg/dL, High: Negative risk factor for coronary heart disease <40 mg/dL, Low: Positive risk factor for coronary heart disease Performed By: #### L IPNF ####[facility] LABCLIA [id number] [place] [address] [place] LDL CHOLESTEROL, NF 77 mg/dL Normal <100 [facility] Comment on above: Order Comment: Martelli men Type: BLOOD SPECIMENOrdering Facility: [facility] Address: [address] [place] [address] Result Comment: <100 mg/dL, Optimal 100-129 mg/dL, Near optimal/above optimal 130-159 mg/dL, Borderline high 160-189 mg/dL, High >189 mg/dL, Very high Secondary prevention optimal LDL Cholesterol levels are recommended to be < 70 mg/dL Performed By: #### L IPNF ####[facility] LABCLIA [id number] [place] [address] [place] LDL/HDL RATIO, NF 2.20 mg/dL Normal <2.54 [facility] Comment on above: Order Comment: Geo men Type: BLOOD SPECIMENOrdering Facility: [facility] Address: [address] [place] [address] Result Comment: Refe yris: 1. National Cholesterol Education Program ATP III Guideline At-A-Glance Quick Desk Reference: National Heart, Lung, and Blood [place]. National Institutes of Health. 2001: NIH Publication No. 01-3305. 2. An International Atherosclerosis Society position paper: global recommendations for the management of dyslipidemia: executive summary, Atherosclerosis. 2014: 232(2):410-413. Performed By: #### L IPNF ####[facility] [id number] [address] [place] NON HDL CHOL, NF 108 mg/dL Normal <130 [facility] Comment on above: Order Comment: Geo fernandez Type: BLOOD SPECIMENOrdering Facility: [facility] Address: [address] [place] [address] Result Comment: <130 mg/dL, Optimal 130-159 mg/dL, Near optimal/above optimal 160-189 mg/dL, Borderline high 190-219 mg/dL, High >219 mg/dL, Very high Secondary prevention optimal non HDL Cholesterol levels are recommended to be <100 mg/dL Performed By: #### L IPNF ####[facility] LABIA [id number] [address] [place] T CHOL/HDL RATIO NF 4.09 mg/dL Normal <5.10 [facility] Comment on above: Order Comment: Geo fernandez Type: BLOOD SPECIMENOrdering Facility: [facility] Address: [address] [place] [address] Performed By: #### L IPNF ####[facility] LABCLIA [id number] [place] [address] [place] TRIGLYCERIDES, NF 155 mg/dL High <150 [facility] Comment on above: Order Comment: Speci men Type: BLOOD SPECIMENOrdering Facility: [facility] Address: [address] [place] [address] Result Comment: <150 mg/dL, Normal 150-199 mg/dL, Borderline high 200-499 mg/dL, High >499 mg/dL, Very high Performed By: #### L IPNF ####[facility] LABCLIA [id number] [place] [address] [place] VLDL CHOLESTEROL, NF 31 mg/dL High <30 [facility] Comment on above: Order Comment: Speci men Type: BLOOD SPECIMENOrdering Facility: [facility] Address: [address] [place] [address] Performed By: #### L IPNF ####[facility] LABCLIA [id number] [place] [address] [place] Cardiology Visit Reporton Cardiology Visit Report [facility] [address] [place], [place] [address] OFFICE VISIT Date of Service: 10/20/23 MR#: [id number] Acct: [id number] Name: TARA ARELLANO Alfonzo Rep #: [id number] : 1955 Provider: Dr. David Cabral MD Age/Sex: 67/M Location: [facility] Status: Signed [facility] History of Present Illness Details: This [...] chest pain. He did follow with a forest management teacher. An EGD was obtained which demonstrated [...] Monitor Intake Visit Reasons: 1 Y FU Pest Locator Required: No Accompanied by: Is patient in [...] airway pressur (more content not included)... Normal [facility] CNOVon 10-14-2023 CNOV Office Visit (PULMWS ) TARA ARELLANO ([id number]) 1955 M Date Time Provider Department 10/14/23 9:30 AM MARIA DE JESUS OSWALD PULMWS During your visit today, we recorded the following information about you: Pulse Respiration Blood pressure 68/minute 14/minute 122/70 Maria De Jesus Oswald PA-C 10/14/2023 10:28 AM Signed Patient: Tara Arellano PCP: Andry Jean-Baptiste MD CC: hospital follow up HPI: Tara Arellano 67 year old male former 83-hjmu-errj smoker quitting in 2001 with PMH significant for PAD, chronic back pain, GERD, status post gastric bypass for bile acid reflux, migraine headaches, traumatic head injury, childhood asthma, [place] on BiPAP, HLD, COPD and emphysema by CT, granulomatous disease, lung nodules. Patient recently admitted to [facility] from 09/19 - 09/22 secondary to AECOPD [...] Comments Comment:hypotension Pneumococcal 23-Sinan* Swelling Comment:Localized swelling fnyoskxkkrx-wzmmamiri-mrfqe ter (TRELEGY ELLIPTA) 100-62.5-25 mcg inhalation powder [...] (NITROSTAT) 0. (more content not included)... Normal [facility] CNOVon 10-02-2023 CNOV Office Visit (FAMPWS ) TARA ARELLANO ([id number]) 1955 M Date Time Provider Department 10/02/23 [...] those as below. Patient was seen at [facility] on 09/20/2023 with c/o shortness of [...] CATH,PERCUTANEOUS 0 (more content not included)... Normal [facility] Culture, Blood (WB)on 2023 CUB No growth in 5 days. Normal [facility] Comment on above: Performed By: #### L 500.2500, L100.0100, M200.1000, L501.4020 ####[facility] [address] [facility] [place], [address] Discharge Instructionon 09-08 Discharge Instruction [facility] Medical Records Department [address] [place] [address] Instructions for Home/Discharge Instructions 09/23/23 0936 MR#: [id number] Acct: [id number] Name: TARA ARELLANO Rep #: [id number] : 1955 67 From: Tao Urena DO [...] Garnett DO; Dr. Andry Jean-Baptiste MD Signed [facility] Respiratory Cultureon 2023 RESPC Mixed normal respira tory christophe. No Haemophilus, Streptococcus pneumoniae, beta-hemolytic Streptococcus or Staphylococcus aureus isolated. [facility] Comment on above: Performed By: #### M 100.2000, M100.2400 #### [facility] [address] [place], [address] Basic Metabolic Profile (BMP )on 09-21-2023 BUN/CRE 13.5 RATIO Normal 10-20 [facility] Comment on above: Performed By: #### L 500.2500, L100.0500 #### [facility] [address] [place], [address] CA,Total 8.8 mg/dL Normal 8.5-10.1 [facility] Comment on above: Performed By: #### L 500.2500, L100.0500 #### [facility] [address] [place], [address] Chloride [Moles/Vol] 101 mmol/L Normal 98-107 [facility] Comment on above: Performed By: #### L 500.2500, L100.0500 #### [facility] [address] [place], [address] CO2 [Moles/Vol] 26.0 mmol/L Normal 21.0-32.0 [facility] Comment on above: Performed By: #### L 500.2500, L100.0500 #### [facility] [address] [place], [address] Creatinine [Mass/Vol] 1.04 mg/dL Normal 0.70-1.30 [facility] Comment on above: Result Comment: The validity of the calculated GFR GFRAA in patients over 70 years has not been determined. Clinical correlation is essential. Performed By: #### L 500.2500, L100.0500 #### [facility] [address] [place], [address] ECRCL 70.19 ml/min Normal [facility] Comment on above: Performed By: #### L 500.2500, L100.0500 #### [facility] [address] [place], [address] EST GFR - AA 91 mL/min Normal >60 [facility] Comment on above: Result Comment: Afri can Mozambican GFR Calc Performed By: #### L 500.2500, L100.0500 #### [facility] [address] [place], [address] GAP 7 Normal 5-15 [facility] Comment on above: Performed By: #### L 500.2500, L100.0500 #### [facility] [address] [place], [address] GFR/1.73 sq M.predicted among non-blacks MDRD (S/P/Bld) [Vol rate/Area] 75 mL/min/{1.73_m2} Normal >60 [facility] Comment on above: Result Comment: Non- GFR Calc Performed By: #### L 500.2500, L100.0500 #### [facility] [address] [place], [address] Glucose [Mass/Vol] 274 mg/dL High 74-106 [facility] Comment on above: Result Comment: Gluc ose result greater than or equal to 200 mg/dL suggests DIABETES MELLITUS per A.D.A. criteria. Performed By: #### L 500.2500, L100.0500 #### [facility] [address] [place], [address] Potassium [Moles/Vol] 3.2 mmol/L Low 3.5-5.1 [facility] Comment on above: Performed By: #### L 500.2500, L100.0500 #### [facility] [address] [place], [address] Sodium [Moles/Vol] 134 mmol/L Low 136-145 [facility] Comment on above: Performed By: #### L 500.2500, L100.0500 #### [facility] [address] [place], [address] Urea nitrogen [Mass/Vol] 14 mg/dL Normal 7-18 [facility] Comment on above: Performed By: #### L 500.2500, L100.0500 #### [facility] [address] [place], [address] CBC-Complete Blood Cnt No Di ffon 09-21-2023 Erythrocyte distribution width (RBC) [Ratio] 12.7 % Normal 11.6-14.6 [facility] Comment on above: Performed By: #### L 500.2500, L100.0500 #### [facility] [address] [place], [address] Hematocrit (Bld) [Volume fraction] 32.5 % Low 40-54 [facility] Comment on above: Performed By: #### L 500.2500, L100.0500 #### [facility] [address] [place], [address] Hemoglobin (Bld) [Mass/Vol] 11.1 g/dL Low 13.0-16.5 [facility] Comment on above: Performed By: #### L 500.2500, L100.0500 #### [facility] [address] [place], [address] MCH (RBC) [Entitic mass] 30.3 pg Normal 27.0-32.0 [facility] Comment on above: Performed By: #### L 500.2500, L100.0500 #### [facility] [address] [place], [address] MCHC (RBC) [Mass/Vol] 34.2 g/dL Normal 32-36 [facility] Comment on above: Performed By: #### L 500.2500, L100.0500 #### [facility] [address] [place], [address] MCV (RBC) [Entitic vol] 88.8 fL Normal 80-94 [facility] Comment on above: Performed By: #### L 500.2500, L100.0500 #### [facility] [address] [place], [address] Platelet mean volume (Bld) [Entitic vol] 9.3 fL Normal 6.2-12.0 [facility] Comment on above: Performed By: #### L 500.2500, L100.0500 #### [facility] [address] [place], [address] Platelets (Bld) [#/Vol] 256 10*3/uL Normal 150-450 [facility] Comment on above: Performed By: #### L 500.2500, L100.0500 #### [facility] [address] [place], [address] RBC (Bld) [#/Vol] 3.66 10*6/uL Low 4.6-6.2 [facility] Comment on above: Performed By: #### L 500.2500, L100.0500 #### [facility] [address] [place], [address] RDW SD 41.4 fl Normal 35.1-43.9 [facility] Comment on above: Performed By: #### L 500.2500, L100.0500 #### [facility] [address] [place], [address] WBC (Bld) [#/Vol] 5.6 10*3/uL Normal 4.4-11.0 [facility] Comment on above: Performed By: #### L 500.2500, L100.0500 #### [facility] [address] [place], [address] Kayla 09-21-2023 JEANN Telephone (FAMPWS) TARA ARELLANO ([id number]) 1955 M Date Time Provider Department 09/21/23 LEW BIRD During your visit today, we recorded the following information about you: Lew Bird APRN.COUNTER CASER 09/21/2023 7:59 AM Signed Please let patient know covid/flu/rsv is negative. Radha Ramires MA 09/21/2023 9:59 AM Signed Spoke to patient's , she was notified of results and verbalized understanding. states that patient is currently admitted to [facility] for RSV Radha Ramires MA Allergies [...] Results [95] Prescriptions as of 09/21/2023 - fsvgrqxodih-tteptaasu-hkusv ter (TRELEGY ELLIPTA) 100-62.5-25 mcg inhalation powder [...] Max of three in a row - tsmdnebcve-edacqcku-hnqmtvv rol (BREZTRI AEROSPHERE) 160-9-4.8 mcg/actuation HFA aerosol [...] Status:Closed by LEW BIRD on 09/21/23 [facility] ([id number]) 1955 M Date Time Provider Department 09/21/23 [facility] During your visit today, we recorded the following information about you: Lew Bird APRN.COUNTER CASER 09/21/2023 3:02 PM Signed Please let patient [...] Results [95] Prescriptions as of 09/21/2023 - dwzosuxifla-trxohyrkm-uekcz ter (TRELEGY ELLIPTA) 100-62.5-25 mcg inhalation powder [...] Max of three in a row - yzocgoqine-qpwkhayp-wasxguq rol (BREZTRI AEROSPHERE) 160-9-4.8 mcg/actuation HFA aerosol [...] Status:Closed by ILEANA JIANG on 09/21/23 Normal [facility] Gram Stainon 09-21-2023 GS Acceptable Specimen? Yes (<25 Epithelial cells per/lpf) Gram Stain 3+ White Blood Cells 4+ Gram negative rods 2+ Gram positive cocci 2+ Gram positive rods 1+ Epithelial cells Normal [facility] Comment on above: Performed By: #### M 100.2000, M100.2400 #### [facility] [address] [place], [address] Vitamin B12on 09-21-2023 Cobalamin (Vitamin B12) [Mass/Vol] 1747 pg/mL High 211-911 [facility] Comment on above: Performed By: #### L 506.0250, L503.0105 ####[facility] [address] [place], [address] XR Chest PA and Lateralon IMPRESSION: No developing abnormality or acute process Canine Deputy: THONG Transcribe Date/Time: Sep 21 2023 1:52P Dictated by : LOCO PRUITT MD This examination was interpreted and the report reviewed and electronically signed by: LOCO PRUITT MD on Sep 21 2023 1:54PM [facility] DIVISION OF RADIOLOGY * * *Final Report* [...] soft tissues: Unremarkable. DIVISION OF RADIOLOGY Provider, [facility] - 09/21/2023 * * *Final Report* * [...] IMPRESSION: No developing abnormality or acute process Canine Deputy: THONG Transcribe Date/Time: Sep 21 2023 1:52P Dictated by : LOCO PRUITT MD This examination was interpreted and the report reviewed and electronically signed by: LOCO PRUITT MD on Sep 21 2023 1:54PM EST [facility] XR Chest PA and LateralOrder ed By: [facility]cf Provider on 09-21-2023 [facility] Absolute lymphocyte countOrd ered By: Saray Hutchinson on 09-20-2023 Lymphocytes Auto (Unsp spec) [#/Vol] 0.59 10*3/uL 0.83-4.51 [facility] Automated lymphocyte count a s percentage of total leukocytesOrdered By: Saray Hutchinson on 09-20-2023 Lymphocytes/100 WBC Auto (Unsp spec) 10.1 % 19-41 [facility] Basic Metabolic Profile (BMP )on 09-20-2023 BUN/CRE 13.0 RATIO Normal 10-20 [facility] Comment on above: Order Comment: 'TROP ' Serial specimen #1, #2 or #3: 1 Performed By: #### L 500.2500, L100.0100, M200.1000, L501.4020 ####[facility] [address] [place], [address] CA,Total 9.0 mg/dL Normal 8.5-10.1 [facility] Comment on above: Order Comment: 'TROP ' Serial specimen #1, #2 or #3: 1 Performed By: #### L 500.2500, L100.0100, M200.1000, L501.4020 ####[facility] [address] [place], [address] Chloride [Moles/Vol] 96 mmol/L Low 98-107 [facility] Comment on above: Order Comment: 'TROP ' Serial specimen #1, #2 or #3: 1 Performed By: #### L 500.2500, L100.0100, M200.1000, L501.4020 ####[facility] [address] [place], [address] CO2 [Moles/Vol] 28.0 mmol/L Normal 21.0-32.0 [facility] Comment on above: Order Comment: 'TROP ' Serial specimen #1, #2 or #3: 1 Performed By: #### L 500.2500, L100.0100, M200.1000, L501.4020 ####[facility] [address] [place], [address] Creatinine [Mass/Vol] 1.08 mg/dL Normal 0.70-1.30 [facility] Comment on above: Order Comment: 'TROP ' Serial specimen #1, #2 or #3: 1 Result Comment: The validity of the calculated GFR GFRAA in patients over 70 years has not been determined. Clinical correlation is essential. Performed By: #### L 500.2500, L100.0100, M200.1000, L501.4020 ####[facility] [address] [place], [address] ECRCL 69.72 ml/min Normal [facility] Comment on above: Order Comment: 'TROP ' Serial specimen #1, #2 or #3: 1 Performed By: #### L 500.2500, L100.0100, M200.1000, L501.4020 ####[facility] [address] [place], [address] EST GFR - AA 87 mL/min Normal >60 [facility] Comment on above: Order Comment: 'TROP ' Serial specimen #1, #2 or #3: 1 Result Comment: Afri can Mozambican GFR Calc Performed By: #### L 500.2500, L100.0100, M200.1000, L501.4020 ####[facility] [address] [place], [address] GAP 10 Normal 5-15 [facility] Comment on above: Order Comment: 'TROP ' Serial specimen #1, #2 or #3: 1 Performed By: #### L 500.2500, L100.0100, M200.1000, L501.4020 ####[facility] [address] [place], [address] GFR/1.73 sq M.predicted among non-blacks MDRD (S/P/Bld) [Vol rate/Area] 72 mL/min/{1.73_m2} Normal >60 [facility] Comment on above: Order Comment: 'TROP ' Serial specimen #1, #2 or #3: 1 Result Comment: Non- GFR Calc Performed By: #### L 500.2500, L100.0100, M200.1000, L501.4020 ####[facility] [address] [place], [address] Glucose [Mass/Vol] 125 mg/dL High 74-106 [facility] Comment on above: Order Comment: 'TROP ' Serial specimen #1, #2 or #3: 1 Result Comment: Fast ing Glucose result from 100 to 125 mg/dL suggests IMPAIRED HOMEOSTASIS per A.D.A. criteria. Performed By: #### L 500.2500, L100.0100, M200.1000, L501.4020 ####[facility] [address] [place], [address] Potassium [Moles/Vol] 3.5 mmol/L Normal 3.5-5.1 [facility] Comment on above: Order Comment: 'TROP ' Serial specimen #1, #2 or #3: 1 Performed By: #### L 500.2500, L100.0100, M200.1000, L501.4020 ####[facility] [address] [place], [address] Sodium [Moles/Vol] 134 mmol/L Low 136-145 [facility] Comment on above: Order Comment: 'TROP ' Serial specimen #1, #2 or #3: 1 Performed By: #### L 500.2500, L100.0100, M200.1000, L501.4020 ####[facility] [address] [place], [address] Urea nitrogen [Mass/Vol] 14 mg/dL Normal 7-18 [facility] Comment on above: Order Comment: 'TROP ' Serial specimen #1, #2 or #3: 1 Performed By: #### L 500.2500, L100.0100, M200.1000, L501.4020 ####[facility] [address] [place], [address] Basophil percentageOrdered B y: Remus Ungur on 09-20-2023 Basophils/100 WBC (Bld) 0.3 % 0-1 [facility] Chloride [Moles/Vol] 96 mmol/L 98-107 [facility] Eosinophils/100 WBC (Bld) 0.0 % 0-5 [facility] Glucose [Mass/Vol] 125 mg/dL 74-106 [facility] Comment on above: Fasting Glucose resu lt from 100 to 125 mg/dL suggests IMPAIRED HOMEOSTASIS per A.D.A. criteria. Hemoglobin (Bld) [Mass/Vol] 12.9 g/dL 13.0-16.5 [facility] Monocytes/100 WBC (Bld) 12.3 % 0-10 [facility] Neutrophils (Bld) [#/Vol] 4.5 10*3/uL 2.0-7.7 [facility] Neutrophils/100 WBC (Bld) 77.0 % 47-70 [facility] Potassium [Moles/Vol] 3.5 mmol/L 3.5-5.1 [facility] Sodium [Moles/Vol] 134 mmol/L 136-145 [facility] WBC (Bld) [#/Vol] 5.9 10*3/uL 4.4-11.0 [facility] CBC W/Diff, Automatedon 05- Absolute Lymph 0.59 X10 3/uL Low 0.83-4.51 [facility] Comment on above: Performed By: #### L 500.2500, L100.0100, M200.1000, L501.4020 ####[facility] [address] [place], [address] Absolute Neut 4.5 X10 3/uL Normal 2.0-7.7 [facility] Comment on above: Performed By: #### L 500.2500, L100.0100, M200.1000, L501.4020 ####[facility] [address] [place], [address] Basophils/100 WBC (Bld) 0.3 % Normal 0-1 [facility] Comment on above: Performed By: #### L 500.2500, L100.0100, M200.1000, L501.4020 ####[facility] [address] [place], [address] Eosinophils/100 WBC (Bld) 0.0 % Normal 0-5 [facility] Comment on above: Performed By: #### L 500.2500, L100.0100, M200.1000, L501.4020 ####[facility] [address] [place], [address] Erythrocyte distribution width (RBC) [Ratio] 12.7 % Normal 11.6-14.6 [facility] Comment on above: Performed By: #### L 500.2500, L100.0100, M200.1000, L501.4020 ####[facility] [address] [place], [address] Hematocrit (Bld) [Volume fraction] 38.4 % Low 40-54 [facility] Comment on above: Performed By: #### L 500.2500, L100.0100, M200.1000, L501.4020 ####[facility] [address] [place], [address] Hemoglobin (Bld) [Mass/Vol] 12.9 g/dL Low 13.0-16.5 [facility] Comment on above: Performed By: #### L 500.2500, L100.0100, M200.1000, L501.4020 ####[facility] [address] [place], [address] IG% 0.300 Normal 0.0-0.9 [facility] Comment on above: Result Comment: IG% - Immature Granulocytes (promyelocytes, myelocytes and metamyelocytes) > 1% indicates that a LEFT SHIFT is Present. Performed By: #### L 500.2500, L100.0100, M200.1000, L501.4020 ####[facility] [address] [place], [address] Lymphocytes/100 WBC (Bld) 10.1 % Low 19-41 [facility] Comment on above: Performed By: #### L 500.2500, L100.0100, M200.1000, L501.4020 ####[facility] [address] [place], [address] MCH (RBC) [Entitic mass] 30.1 pg Normal 27.0-32.0 [facility] Comment on above: Performed By: #### L 500.2500, L100.0100, M200.1000, L501.4020 ####[facility] [address] [place], [address] MCHC (RBC) [Mass/Vol] 33.6 g/dL Normal 32-36 [facility] Comment on above: Performed By: #### L 500.2500, L100.0100, M200.1000, L501.4020 ####[facility] [address] [place], [address] MCV (RBC) [Entitic vol] 89.5 fL Normal 80-94 [facility] Comment on above: Performed By: #### L 500.2500, L100.0100, M200.1000, L501.4020 ####[facility] [address] [place], [address] Monocytes/100 WBC (Bld) 12.3 % High 0-10 [facility] Comment on above: Performed By: #### L 500.2500, L100.0100, M200.1000, L501.4020 ####[facility] [address] [place], [address] Neutrophils/100 WBC (Bld) 77.0 % High 47-70 [facility] Comment on above: Performed By: #### L 500.2500, L100.0100, M200.1000, L501.4020 ####[facility] [address] [place], [address] Nucleated RBC (Bld) [#/Vol] 0 10*3/uL Normal 0-5 [facility] Comment on above: Performed By: #### L 500.2500, L100.0100, M200.1000, L501.4020 ####[facility] [address] [place], [address] Platelet mean volume (Bld) [Entitic vol] 9.2 fL Normal 6.2-12.0 [facility] Comment on above: Performed By: #### L 500.2500, L100.0100, M200.1000, L501.4020 ####[facility] [address] [place], [address] Platelets (Bld) [#/Vol] 246 10*3/uL Normal 150-450 [facility] Comment on above: Performed By: #### L 500.2500, L100.0100, M200.1000, L501.4020 ####[facility] [address] [place], [address] RBC (Bld) [#/Vol] 4.29 10*6/uL Low 4.6-6.2 [facility] Comment on above: Performed By: #### L 500.2500, L100.0100, M200.1000, L501.4020 ####[facility] [address] [place], [address] RDW SD 41.8 fl Normal 35.1-43.9 [facility] Comment on above: Performed By: #### L 500.2500, L100.0100, M200.1000, L501.4020 ####[facility] [address] [place], [address] WBC (Bld) [#/Vol] 5.9 10*3/uL Normal 4.4-11.0 [facility] Comment on above: Performed By: #### L 500.2500, L100.0100, M200.1000, L501.4020 ####[facility] [address] [place], [address] Chest 1 View (Portable)on Chest 1 View (Portable) [facility] Imaging Services [address] [place] [address] Chest 1 View (Portable) MR#: [id number] Acct: [id number] Name: TARA ARELLANO Rep #: [id number] : 1955 M 67 From: Berry Pandya PCP: Dr. Andry Jean-Baptiste MD Status: REG ER Study: Chest 1 View (Portable) Date of Exam: 09/20/23 Exam# [id number] Ordering Dr: Saray Hutchinson DO [id number] STUDY: XR Chest 1 View 09/20/2023 1:59 [...] Andry Jean-Baptiste MD; Dr. Saray Hutchinson DO Canine Deputy: Signed Normal [facility] Determination of erythrocyte mean corpuscular volume (MCV)Ordered By: Saray Hutchinson on 09-20-2023 MCV (RBC) [Entitic vol] 89.5 fL 80-94 [facility] Emergency Department Summary on 09-20-2023 Emergency Department Summary [facility] Medical Records Department [address] [place] [address] Emergency Department Summary 09/20/23 MR#: [id number] Acct: [id number] Name: TARA ARELLANO Rep #: [id number] : 1955 67 From: Saray Hutchinson DO PCP: Dr. Andry Jean-Baptiste MD Status:ADM IN Location: [place] [address] HPI History of Present Illness Chief Complaint: [...] COPD. He does not wear home O2. [facility] Medical History Anxiety Arthritis Asthma Bilateral [...] leg Verified 09/20/23 13:02 weakness Family History Mother Diabetes CHF (congestive [...] of esop (more content not included)... Normal [facility] Erythrocyte distribution wid th ratioOrdered By: Saray Hutchinson on 09-20-2023 Erythrocyte distribution width (RBC) [Ratio] 12.7 % 11.6-14.6 [facility] Erythrocyte distribution wid th standard deviationOrdered By: Estephanie Evangelina on 09-20-2023 Erythrocyte distribution width (RBC) [Entitic vol] 41.8 fL 35.1-43.9 [facility] Ferritinon 09-20-2023 Ferritin [Mass/Vol] 500 ng/mL High 26-388 [facility] Comment on above: Performed By: #### L 715.9251, L503.6029 #### [facility] [place], [address] Folates, (Folic Acid)on 09-08 FOLATES 33.40 ng/mL Normal 3.1-55.4 [facility] Comment on above: Order Comment: Has P atient had X-rays with Contrast this admission? NN Performed By: #### L 152.6750, L503.0105 ####[facility] [address] [place], [address] H AND P Exam - Hospitaliston 09-20-2023 H&P Exam - Hospitalist [facility] Medical Records Department [address] [place] [address] H P Exam - Hospitalist 09/20/23 1506 MR#: [id number] Acct: [id number] Name: TARA ARELLANO Rep #: [id number] : 1955 67 From: Dutch Garnett DO PCP: Dr. Andry Jean-Baptiste MD Status:ADM [id number] - General General Date of Admission: 09/20/23 Date of Service: 09/20/23 Chief Complaint: Worsening productive cough and shortness of breath HPI Narrative TARA ARELLANO, is a 67 M who presented to [facility] ED on 09/20/2023 with worsening productive cough [...] treatment. Will be admitted for further management. [facility] Medical History Anxiety Arthritis Asthma Bilateral carotid [...] [History Last (more content not included)... Normal [facility] Hematocrit Auto (Bld) [Volum e fraction]Ordered By: Saray Hutchinson on 09-20-2023 Hematocrit (Bld) [Volume fraction] 38.4 % 40-54 [facility] Immature granulocytes/100 WB C Auto (Bld)Ordered By: Saray Hutchinson on 09-20-2023 Immature granulocytes/100 WBC (Bld) 0.300 % 0.0-0.9 [facility] Comment on above: IG% - Immature Granu locytes (promyelocytes, myelocytes and metamyelocytes) > 1% indicates that a LEFT SHIFT is Present. Iron+Iron Binding Capacityon 09-20-2023 Iron [Mass/Vol] 11 ug/dL Low 65-175 [facility] Comment on above: Performed By: #### L 503.6550, L503.6030 #### [facility] [address] [place], [place], [address] IRON SATURATION 4.9 Low 15.0-55.0 [facility] Comment on above: Performed By: #### L 503.6550, L503.6030 #### [facility] [address] [place], [address] TIBC 225 ug/dL Low 250-450 [facility] Comment on above: Performed By: #### L 503.6550, L503.6030 #### [facility] [address] [place], [address] L501.4020on 09-20-2023 TROPONIN-I HS 5 pg/mL Normal 3.0-78.0 [facility] Comment on above: Order Comment: 'TROP ' Serial specimen #1, #2 or #3: 1 Result Comment: Plea se Note: New Test Units and Gender Specific Reference Ranges. For more information see Policy Stat Procedure [place] High Sensitivity Troponin (TNIH) and attachments. Performed By: #### L 500.2500, L100.0100, M200.1000, L501.4020 ####[facility] [address] [facility] [place], [address] Laboratory - Chemistry and C hemistry - challengeOrdered By: Saray Hutchinson on 09-20-2023 CO2 [Moles/Vol] 28.0 mmol/L 21.0-32.0 [facility] Urea nitrogen/Creatinine [Mass ratio] 13.0 mg/mg 10-20 [facility] Laboratory - Hematology and Cell countsOrdered By: Saray Hutchinson on 09-20-2023 MCH (RBC) [Entitic mass] 30.1 pg 27.0-32.0 [facility] MCHC (RBC) [Mass/Vol] 33.6 g/dL 32-36 [facility] Nucleated RBC/100 WBC (Bld) [Ratio] 0 % 0-5 [facility] Platelet mean volume (Bld) [Entitic vol] 9.2 fL 6.2-12.0 [facility] Platelets (Bld) [#/Vol] 246 10*3/uL 150-450 [facility] M100.678on 09-20-2023 M100.678 Normal Reference Ran ge = Negative GeneXpert Instrument, PCR method SARS-CoV-2 (COVID 19) Negative INFLUENZA A Negative INFLUENZA B Negative RSV PCR Negative Normal [facility] Comment on above: Performed By: #### M 100.678 ####[facility] [address] [place], [address] No Panel InformationOrdered By: Saray Hutchinson on 09-20-2023 Estimated Creatinine Clearance Calc 69.72 ml/min [facility] Estimated GFR (MDRD) Amer 87 mL/min >60 [facility] Comment on above: GFR Calc Estimated GFR (MDRD) Non-Af Amer 72 mL/min >60 [facility] Comment on above: Non- GFR Calc Troponin I High Sensitivity 5 pg/mL 3.0-78.0 [facility] Comment on above: Please Note: New Jessica t Units and Gender Specific Reference Ranges. For more information see Policy Stat Procedure [place] High Sensitivity Troponin (TNIH) and attachments. RBC Auto (Bld) [#/Vol]Ordere d By: Saray Hutchinson on 09-20-2023 RBC (Bld) [#/Vol] 4.29 10*6/uL 4.6-6.2 [facility] RESPIRATORY PANEL MOLECULARo n 09-20-2023 RP PANEL [...] technology A PARAINFLUENZA 3 RSV B Normal [facility] Comment on above: Performed By: #### M 100.638 #### [facility] [address] [place], [address] Serum or plasma calcium adair urement (mass/volume)Ordered By: Saray Hutchinson on 09-20-2023 Calcium [Mass/Vol] 9.0 mg/dL 8.5-10.1 [facility] Serum or plasma creatinine m easurement (mass/volume)Ordered By: Remus Ungur on 09-20-2023 Creatinine [Mass/Vol] 1.08 mg/dL 0.70-1.30 [facility] Comment on above: The validity of the calculated GFR & GFRAA in patients over 70 years has not been determined. Clinical correlation is essential. Serum or plasma urea nitroge n measurement (mass/volume)Ordered By: Remus Ungur on 09-20-2023 Urea nitrogen [Mass/Vol] 14 mg/dL 7-18 [facility] Thin prep Papanicolaou smear with manual screeningOrdered By: Remus Ungur on 09-20-2023 Thin prep Papanicolaou smear with manual screening 10 5-15 [facility] CNOVon 09-18-2023 CNOV Office Visit (MIGUELPWS ) TARA ARELLANO ([id number]) 1955 M Date Time Provider Department 09/18/23 3:00 PM LEW BIRD During your visit today, we recorded the following information about you: Temperature Respiration Blood pressure Weight 100.7 degrees 16/minute 148/60 83.5 kg Lew Bird APRN.[facility] 09/18/2023 3:52 PM Signed Chief Complaint Patient [...] on File Prior to Visit Medication Sig gzbpfnxir[address]-blogmofuo-vfkxd ter (TRELEGY ELLIPTA) 100-62.5-25 mcg inhalation powder Inhale 1 Puff as instructed once daily. triamcinolone acetonide topical 0.5 % ointment Apply to affected area two times a day. May use up to 2 w (more content not included)... Normal [facility] COVID AND INFLUENZA A/B AND RSV NAAT, ROUTINEon 09-18-2023 SARS-CoV-2 (COVID-19) RNA VALARIE+probe Ql (Unsp spec) COVID 19 RESULT: Not detected The method used is RT-PCR or an equivalent NAAT method. Reference Range (the expected result in uninfected individuals): Not detected INFLUENZA A PCR: Not detected INFLUENZA B PCR: Not detected RSV PCR: Not detected Normal [facility] Comment on above: Performed By: #### C VFLRS ####[facility] LABCLIA [id number] [place] [address] [place] ECG COMPLETEon 09-18-2023 ECG COMPLETE Ventricular Rate : 1 04 BPM Atrial Rate : 104 BPM P-R Interval : 134 ms QRS Duration : 86 ms Q-T Interval : 314 ms QTC Calculation(Bazett) : 412 ms Calculated R [place] : 109 degrees Calculated T [place] : 135 degrees SINUS TACHYCARDIA RIGHT AXIS LOW VOLTAGE QRS, CONSIDER PULMONARY DISEASE, PERICARDIAL EFFUSION, OR NORMAL VARIANT BORDERLINE ECG Confirmed by MD FAJARDO GREGORY () on 09/21/2023 9:27:16 AM NAME : TARA ARELLANO PID : [id number] : 1955 Gender : Male Race : ORD : [id number] Procedure Date : Sep 18 2023 15:42:51 [...] EMILE BIRD Acquired by : Roney RG [facility] XR CHEST 2V FRONTAL/LATon XR CHEST 2V [...] IMPRESSION: No developing abnormality or acute process Canine Deputy: THONG Transcribe Date/Time: Sep 21 2023 1:52P Dictated by : LOCO PRUITT MD This examination was interpreted and the report reviewed and electronically signed by: LOCO PRUITT MD on Sep 21 2023 1:54PM EST [id number] Normal [facility] XR Chest PA and Lateralon Radiology Study observation (narrative) [facility] 06-17-2023 CNPN Telephone (MEPRAD) TARA ARELLANO ([id number]) 1955 Date Time Provider Department 06/17/23 TERI GROSS During your visit today, we recorded the following information about you: Teri Gross MD 06/17/2023 5:23 PM Signed Left voice mail message with results. The paratracheal node is likely due to granulomatous disease. I do not personally remember a nodule in the RUL on [facility] from [facility]. I will need to directly compare the films but will not have access until I return to [place] on Thursday. Left message that I will call on Thursday. Arleen Tapia LPN 06/22/2023 3:34 PM Signed Patient called in stating patient is out playing with [employer] and is not by phone patient would like to review results . Please call her cell at [phone] Arleen Tapia LPN Allergies As of Date: [...] Max of three in a row - zzqnknnzls-rpaivkia-tqoqcch rol (BREZTRI AEROSPHERE) 160-9-4.8 mcg/actuation HFA aerosol [...] Encounter Status:Closed by TERI GROSS on 06/17/[address] [facility] [address] CHEST WO IVCONon 02-06-20 24 Radiology Result ACTIONABLE Abnormal [facility] Serum or plasma uric acid me asurement (mass/volume)Ordered By: Dany Tovar on 06-10-2023 Urate [Mass/Vol] 6.4 mg/dL 3.5-7.2 [facility] Comment on above: The drugs N-Acetylcy steine and Metamizole may falsely depress this assay. Absolute lymphocyte countOrd ered By: Lionel Neville on 05-18-2023 Lymphocytes Auto (Unsp spec) [#/Vol] 0.87 10*3/uL 0.83-4.51 [facility] Basophil percentageOrdered B y: Lionel Neville on 05-18-2023 Basophil percentage 0 SEEN /hpf 0-5 [facility] Basophils/100 WBC (Bld) 0.5 % 0-1 [facility] Bilirubin [Mass/Vol] 0.30 mg/dL 0.20-1.00 [facility] Comment on above: For patients on eltr ombopag therapy, use of Dimension [place] TBIL is not recommended. Chloride [Moles/Vol] 108 mmol/L 98-107 [facility] Eosinophils/100 WBC (Bld) 0.0 % 0-5 [facility] Glucose [Mass/Vol] 136 mg/dL 74-106 [facility] Comment on above: Fasting Glucose resu lt greater than or equal to 126 mg/dL suggests DIABETES MELLITUS per A.D.A. criteria. Neutrophils (Bld) [#/Vol] 5.1 10*3/uL 2.0-7.7 [facility] Neutrophils/100 WBC (Bld) 81.8 % 47-70 [facility] Potassium [Moles/Vol] 4.1 mmol/L 3.5-5.1 [facility] Comment on above: Slight Hemolysis, Re sult may be falsely increased. Protein [Mass/Vol] 7.1 g/dL 6.4-8.2 [facility] Sodium [Moles/Vol] 140 mmol/L 136-145 [facility] WBC (Bld) [#/Vol] 6.2 10*3/uL 4.4-11.0 [facility] Bilirubin Test strip Ql (U)O rdered By: Lionel Neville on 05-18-2023 Bilirubin Ql (U) Negative Negative [facility] Blood erythrocytes count (nu mber/volume)Ordered By: Lionel Neville on 05-18-2023 RBC (Bld) [#/Vol] 4.28 10*6/uL 4.6-6.2 [facility] Blood hemoglobin measurement (mass/volume)Ordered By: Lionel Neville on 05-18-2023 Hemoglobin (Bld) [Mass/Vol] 13.1 g/dL 13.0-16.5 [facility] Blood lymphocytes/100 leukoc ytesOrdered By: Lionel Neville on 05-18-2023 Lymphocytes/100 WBC (Bld) 14.0 % 19-41 [facility] Blood monocytes/100 leukocyt esOrdered By: Lionel Neville on 05-18-2023 Monocytes/100 WBC (Bld) 3.2 % 0-10 [facility] Blood platelet mean volumeOr dered By: Lionel Neville on 05-18-2023 Platelet mean volume (Bld) [Entitic vol] 8.3 fL 6.2-12.0 [facility] Determination of erythrocyte mean corpuscular volume (MCV)Ordered By: Lionel Neville on 05-18-2023 MCV (RBC) [Entitic vol] 88.3 fL 80-94 [facility] Hematocrit Auto (Bld) [Volum e fraction]Ordered By: Lionel Neville on 05-18-2023 Hematocrit (Bld) [Volume fraction] 37.8 % 40-54 [facility] Ketones Test strip Ql (U)Ord ered By: Lionel Neville on 05-18-2023 Ketones Ql (U) Negative Negative [facility] Laboratory - Chemistry and C hemistry - challengeOrdered By: Lionel Neville on 05-18-2023 ALP [Catalytic activity/Vol] 68 U/L 45-117 [facility] ALT [Catalytic activity/Vol] 55 U/L 16-61 [facility] CO2 [Moles/Vol] 27.0 mmol/L 21.0-32.0 [facility] Globulin (S) [Mass/Vol] 3.5 g/dL 2.2-4.2 [facility] Urea nitrogen/Creatinine [Mass ratio] 10.5 mg/mg 10-20 [facility] Laboratory - Hematology and Cell countsOrdered By: Lionel Neville on 05-18-2023 Erythrocyte distribution width (RBC) [Entitic vol] 41.6 fL 35.1-43.9 [facility] Erythrocyte distribution width (RBC) [Ratio] 12.9 % 11.6-14.6 [facility] Immature granulocytes/100 WBC (Bld) 0.500 % 0.0-0.9 [facility] Comment on above: IG% - Immature Granu locytes (promyelocytes, myelocytes and metamyelocytes) > 1% indicates that a LEFT SHIFT is Present. MCH (RBC) [Entitic mass] 30.6 pg 27.0-32.0 [facility] Nucleated RBC/100 WBC (Bld) [Ratio] 0 % 0-5 [facility] Laboratory - Microbiology an d Antimicrobial susceptibilityOrdered By: Lionel Neville on 05-18-2023 SARS-CoV-2 (COVID-19) RNA VALARIE+probe Ql (Unsp spec) RSV [facility] MCHC Auto (RBC) [Mass/Vol]Or dered By: Lionel Neville on 05-18-2023 MCHC (RBC) [Mass/Vol] 34.7 g/dL 32-36 [facility] Mucus LM Ql (Urine sed)Order ed By: Lionel Neville on 05-18-2023 Mucus Ql (Urine sed) 0 SEEN /hpf [facility] Nitrite Test strip Ql (U)Ord ered By: Lionel Neville on 05-18-2023 Nitrite Ql (U) Negative Negative [facility] No Panel InformationOrdered By: Lionel Nevilel on 05-18-2023 D-Dimer Quantitative (PE/DVT) 0.33 FEU/ug/m 0.27-0.49 [facility] Comment on above: NORMAL D-Dimer level (<0.50) indicates no DVT or PE. Estimated Creatinine Clearance Calc 76.84 ml/min [facility] Estimated GFR (MDRD) Amer 102 mL/min >60 [facility] Comment on above: GFR Calc Estimated GFR (MDRD) Non-Af Amer 84 mL/min >60 [facility] Comment on above: Non- GFR Calc Troponin I High Sensitivity 4 pg/mL 3.0-78.0 [facility] Comment on above: Please Note: New Jessica t Units and Gender Specific Reference Ranges. For more information see Policy Stat Procedure [place] High Sensitivity Troponin (TNIH) and attachments. Platelets bldOrdered By: Daniella Neville on 05-18-2023 Platelets (Bld) [#/Vol] 259 10*3/uL 150-450 [facility] Protein Test strip Ql (U)Ord ered By: Lionel Neville on 05-18-2023 Protein Ql (U) Negative Negative [facility] Serum or plasma albumin adair urement (mass/volume)Ordered By: Lionel Neville on 05-18-2023 Albumin [Mass/Vol] 3.6 g/dL 3.2-5.0 [facility] Serum or plasma albumin/glob ulin mass ratioOrdered By: Lionel Neville on 05-18-2023 Albumin/Globulin [Mass ratio] 1.0 {ratio} 0.9-2.4 [facility] Serum or plasma calcium adair urement (mass/volume)Ordered By: Lionel Neville on 05-18-2023 Calcium [Mass/Vol] 9.1 mg/dL 8.5-10.1 [facility] Serum or plasma creatinine m easurement (mass/volume)Ordered By: Lionel Neville on 05-18-2023 Creatinine [Mass/Vol] 0.95 mg/dL 0.70-1.30 [facility] Comment on above: The validity of the calculated GFR & GFRAA in patients over 70 years has not been determined. Clinical correlation is essential. Serum or plasma urea nitroge n measurement (mass/volume)Ordered By: Lionel Neville on 05-18-2023 Urea nitrogen [Mass/Vol] 10 mg/dL 7-18 [facility] Squamous epithelial cells de tection in urine sediment by light microscopyOrdered By: Lionel Neville on 05-18-2023 Epithelial cells.squamous LM Ql (Urine sed) 0-5 SEEN /hpf 0-5 [facility] Thin prep Papanicolaou smear with manual screeningOrdered By: Lionel Neville on 05-18-2023 Thin prep Papanicolaou smear with manual screening 47 U/L 15-37 [facility] Comment on above: Slight Hemolysis, Re sult may be falsely increased. Thin prep Papanicolaou smear with manual screening 5 5-15 [facility] Urine blood detectionOrdered By: Lionel Neville on 05-18-2023 RBC Ql (U) Negative Negative [facility] RBC Ql (U) 0 SEEN /hpf 0-5 [facility] Urine clarityOrdered By: Daniella Neville on 05-18-2023 Clarity (U) Clear Clear [facility] Urine color determinationOrd ered By: Lionel Neville on 05-18-2023 Color (U) Yellow Yellow [facility] Urine glucose detectionOrder ed By: Lionel Neville on 05-18-2023 Glucose Ql (U) Normal mg/dl Normal [facility] Urine leukocyte esterase det ection by dipstickOrdered By: Lionel Neville on 05-18-2023 Leukocyte esterase Test strip Ql (U) Negative Negative [facility] Urine pHOrdered By: Lionel cadet on 05-18-2023 pH (U) 6.5 [pH] 5.0 - 8.0 [facility] Urine sediment bacteria coun t by microscopy (number/high power field)Ordered By: Lionel Neville on 05-18-2023 Bacteria LM.HPF (Urine sed) [#/Area] 0 /[HPF] None Seen [facility] Urine specific gravity measu rementOrdered By: Lionel Neville on 05-18-2023 Specific gravity (U) [Rel density] 1.005 1.002-1.03 0 [facility] Urobilinogen Auto test strip Ql (U)Ordered By: Lionel Neville on 05-18-2023 Urobilinogen Ql (U) Normal mg/dl Normal [facility] CNPUzma 04-30-2023 CNPN Telephone (AGCFM) TARA ARELLANO ([id number]) 1955 M Date Time Provider Department 04/30/23 ANDRY JEAN-BAPTISTE [facility] During your visit today, we recorded the [...] mouth once daily for 10 days. - ntfqvsurqt-drrebrrk-dzdrepw rol (BREZTRI AEROSPHERE) 160-9-4.8 mcg/actuation HFA aerosol [...] ZOHAIB JALLOH on 04/30/23 Normal [facility] AMYLASE BLDon 04-28-2023 Amylase [Catalytic activity/Vol] 37 U/L 30 - 104 U/L [facility] CBC W Auto Differential pane l (Bld)on 04-28-2023 Basophils (Bld) [#/Vol] 0.09 10*3/uL <0.11 k/uL [facility] Basophils/100 WBC (Bld) 1.4 % [facility] Differential cell count method Nom (Bld) Auto [facility] Eosinophils (Bld) [#/Vol] 0.20 10*3/uL <0.46 k/uL [facility] Eosinophils/100 WBC (Bld) 3.2 % [facility] Erythrocyte distribution width (RBC) [Ratio] 13.2 % 11.5 - 15.0 % [facility] Hematocrit (Bld) [Volume fraction] 40.1 % 39.0 - 51.0 % [facility] Hemoglobin (Bld) [Mass/Vol] 13.4 g/dL 13.0 - 17.0 g/dL [facility] Immature granulocytes (Bld) [#/Vol] <0.10 k/uL [facility] Immature granulocytes/100 WBC (Bld) 0.3 % [facility] Lymphocytes (Bld) [#/Vol] 1.49 10*3/uL 1.00 - 4.00 k/uL [facility] Lymphocytes/100 WBC (Bld) 24.0 % [facility] MCH (RBC) [Entitic mass] 30.8 pg 26.0 - 34.0 pg [facility] MCHC (RBC) [Mass/Vol] 33.4 g/dL 30.5 - 36.0 g/dL [facility] MCV (RBC) [Entitic vol] 92.2 fL 80.0 - 100.0 fL [facility] Monocytes (Bld) [#/Vol] 0.54 10*3/uL <0.87 k/uL [facility] Monocytes/100 WBC (Bld) 8.7 % [facility] Neutrophils (Bld) [#/Vol] 3.87 10*3/uL 1.45 - 7.50 k/uL [facility] Neutrophils/100 WBC (Bld) 62.4 % [facility] Nucleated RBC (Bld) [#/Vol] <0.01 k/uL [facility] Nucleated RBC/100 WBC (Bld) [Ratio] 0.0 /100 WBC [facility] Platelet mean volume (Bld) [Entitic vol] 8.9 fL Low 9.0 - 12.7 fL [facility] Platelets (Bld) [#/Vol] 309 10*3/uL 150 - 400 k/uL [facility] RBC (Bld) [#/Vol] 4.35 10*6/uL 4.20 - 6.00 m/uL [facility] WBC (Bld) [#/Vol] 6.21 10*3/uL 3.70 - 11.00 k/uL [facility] Hepatic function 2000 panelo n 04-28-2023 Albumin [Mass/Vol] 4.5 g/dL 3.9 - 4.9 g/dL [facility] ALP [Catalytic activity/Vol] 63 U/L 38 - 113 U/L [facility] ALT [Catalytic activity/Vol] 29 U/L 10 - 54 U/L [facility] AST [Catalytic activity/Vol] 29 U/L 14 - 40 U/L [facility] Bilirubin [Mass/Vol] 0.3 mg/dL 0.2 - 1 .3 mg/dL [facility] Bilirubin.conjugated [Mass/Vol] <0.2 mg/dL [facility] Protein [Mass/Vol] 6.7 g/dL 6.3 - 8.0 g/dL [facility] LIPASE BLDon 04-28-2023 Lipase [Catalytic activity/Vol] 34 U/L 16 - 61 U/L [facility] XR CHEST 2V FRONTAL/LATon [facility] XR Chest PA and Lateralon IMPRESSION: Stable exam with no acute radiographic abnormality. Canine Deputy: PSCB Transcribe Date/Time: Apr 28 2023 12:44P Dictated by : VERA ALFARO MD This examination was interpreted and the report reviewed and electronically signed by: VERA ALFARO MD on Apr 28 2023 12:45PM [facility] DIVISION OF RADIOLOGY * * *Final Report* [...] soft tissues: Unremarkable. DIVISION OF RADIOLOGY Provider, [facility] - 04/28/2023 * * *Final Report* * [...] Stable exam with no acute radiographic abnormality. Canine Deputy: THONG Transcribe Date/Time: Apr 28 2023 12:44P Dictated by : VERA ALFARO MD This examination was interpreted and the report reviewed and electronically signed by: VERA ALFARO MD on Apr 28 2023 12:45PM EST [facility] Radiology Study observation (narrative) [facility] XR Chest PA and LateralOrder ed By: Ccf Provider on 04-28-2023 [facility] No Panel Informationon 04-16 [facility] SPIROMETRY WITH DILATOR IF O BSTRUCTEDon 04-16-2023 DLCO (ml/min/mmHg) 23.19 ml/min/mmHg [facility] DLCO/VA (ml/min/mmHg/L) 4.56 ml/min/mmHg/L [facility] [id number]% POST (L/S) 2.21 L/S [facility] [id number]% PRE (L/S) 0.93 L/S [facility] FEV1 PRE (L) 2.24 L [facility] FEV1/FVC POST (%) 66 % [facility] FEV1/FVC PRE (%) 64 % [facility] FEV1_POST (L) 2.65 L [facility] FVC POST (L) 3.99 L [facility] FVC PRE (L) 3.51 L [facility] PEF POST (L/S) 5.40 L/S [facility] PEF PRE (L/S) 4.10 L/S [facility] VA (L) 5.09 L [facility] Absolute lymphocyte countOrd ered By: Thor Oswald on 03-20-2023 Lymphocytes Auto (Unsp spec) [#/Vol] 1.52 10*3/uL 0.83-4.51 [facility] Basophil percentageOrdered B y: Thor Oswald on 03-20-2023 Basophils/100 WBC (Bld) 1.0 % 0-1 [facility] Chloride [Moles/Vol] 103 mmol/L 98-107 [facility] Eosinophils/100 WBC (Bld) 4.5 % 0-5 [facility] Glucose [Mass/Vol] 107 mg/dL 74-106 [facility] Comment on above: Fasting Glucose resu lt from 100 to 125 mg/dL suggests IMPAIRED HOMEOSTASIS per A.D.A. criteria. Neutrophils (Bld) [#/Vol] 4.1 10*3/uL 2.0-7.7 [facility] Neutrophils/100 WBC (Bld) 60.5 % 47-70 [facility] Potassium [Moles/Vol] 4.1 mmol/L 3.5-5.1 [facility] Sodium [Moles/Vol] 139 mmol/L 136-145 [facility] WBC (Bld) [#/Vol] 6.7 10*3/uL 4.4-11.0 [facility] Blood erythrocytes count (nu mber/volume)Ordered By: Thor Oswald on 03-20-2023 RBC (Bld) [#/Vol] 4.31 10*6/uL 4.6-6.2 [facility] Blood hemoglobin measurement (mass/volume)Ordered By: Thor Oswald on 03-20-2023 Hemoglobin (Bld) [Mass/Vol] 13.3 g/dL 13.0-16.5 [facility] Blood lymphocytes/100 leukoc ytesOrdered By: Thor Oswald on 03-20-2023 Lymphocytes/100 WBC (Bld) 22.7 % 19-41 [facility] Blood monocytes/100 leukocyt esOrdered By: Thor Oswald on 03-20-2023 Monocytes/100 WBC (Bld) 8.8 % 0-10 [facility] Blood platelet mean volumeOr dered By: Thor Oswald on 03-20-2023 Platelet mean volume (Bld) [Entitic vol] 8.1 fL 6.2-12.0 [facility] Determination of erythrocyte mean corpuscular volume (MCV)Ordered By: Thor Oswald on 03-20-2023 MCV (RBC) [Entitic vol] 93.0 fL 80-94 [facility] Hematocrit Auto (Bld) [Volum e fraction]Ordered By: Thor Oswald on 03-20-2023 Hematocrit (Bld) [Volume fraction] 40.1 % 40-54 [facility] Laboratory - Chemistry and C hemistry - challengeOrdered By: Thor Oswald on 03-20-2023 CO2 [Moles/Vol] 30.0 mmol/L 21.0-32.0 [facility] Natriuretic peptide B (Bld) [Mass/Vol] 3.3 pg/mL 0-100 [facility] Urea nitrogen/Creatinine [Mass ratio] 20.7 mg/mg 10-20 [facility] Laboratory - Hematology and Cell countsOrdered By: Thor Oswald on 03-20-2023 Erythrocyte distribution width (RBC) [Entitic vol] 43.8 fL 35.1-43.9 [facility] Erythrocyte distribution width (RBC) [Ratio] 12.8 % 11.6-14.6 [facility] Immature granulocytes/100 WBC (Bld) 2.500 % 0.0-0.9 [facility] Comment on above: IG% - Immature Granu locytes (promyelocytes, myelocytes and metamyelocytes) > 1% indicates that a LEFT SHIFT is Present. MCH (RBC) [Entitic mass] 30.9 pg 27.0-32.0 [facility] Nucleated RBC/100 WBC (Bld) [Ratio] 0 % 0-5 [facility] MCHC Auto (RBC) [Mass/Vol]Or dered By: Thor Oswald on 03-20-2023 MCHC (RBC) [Mass/Vol] 33.2 g/dL 32-36 [facility] No Panel InformationOrdered By: Thor Oswald on 03-20-2023 D-Dimer Quantitative (PE/DVT) 0.31 FEU/ug/m 0.27-0.49 [facility] Comment on above: NORMAL D-Dimer level (<0.50) indicates no DVT or PE. Estimated Creatinine Clearance Calc 89.02 ml/min [facility] Estimated GFR (MDRD) Amer 120 mL/min >60 [facility] Comment on above: GFR Calc Estimated GFR (MDRD) Non-Af Amer 99 mL/min >60 [facility] Comment on above: Non- GFR Calc Troponin I High Sensitivity 4 pg/mL 3.0-78.0 [facility] Comment on above: Please Note: New Jessica t Units and Gender Specific Reference Ranges. For more information see Policy Stat Procedure [place] High Sensitivity Troponin (TNIH) and attachments. Platelets bldOrdered By: Marible avilalenny Radha on 03-20-2023 Platelets (Bld) [#/Vol] 294 10*3/uL 150-450 [facility] Serum or plasma calcium adair urement (mass/volume)Ordered By: Thor Oswald on 03-20-2023 Calcium [Mass/Vol] 8.9 mg/dL 8.5-10.1 [facility] Serum or plasma creatinine m easurement (mass/volume)Ordered By: Thor Oswald on 03-20-2023 Creatinine [Mass/Vol] 0.82 mg/dL 0.70-1.30 [facility] Comment on above: The validity of the calculated GFR & GFRAA in patients over 70 years has not been determined. Clinical correlation is essential. Serum or plasma urea nitroge n measurement (mass/volume)Ordered By: Thor Oswald on 03-20-2023 Urea nitrogen [Mass/Vol] 17 mg/dL 7-18 [facility] Thin prep Papanicolaou smear with manual screeningOrdered By: Thor Oswald on 03-20-2023 Thin prep Papanicolaou smear with manual screening 6 5-15 [facility] XR Chest PA and Lateralon IMPRESSION: No acute radiographic abnormality. Canine Deputy: THONG Transcribe Date/Time: Mar 12 2023 3:49P Dictated by : TOMI ABBOTT MD This examination was interpreted and the report reviewed and electronically signed by: TOMI ABBOTT MD on Mar 12 2023 3:53PM [facility] DIVISION OF RADIOLOGY * * *Final Report* [...] tissues: Unremarkable. DIVISION OF RADIOLOGY Provider, Trent Husain - 03/12/2023 * * *Final Report* * [...] Unremarkable. IMPRESSION IMPRESSION: No acute radiographic abnormality. Canine Deputy: PSCB Transcribe Date/Time: Mar 12 2023 3:49P Dictated by : TOMI ABBOTT MD This examination was interpreted and the report reviewed and electronically signed by: TOMI ABBOTT MD on Mar 12 2023 3:53PM EST [facility]narrative[facility] Chest PA and LateralOrder ed By: Ccf Provider on 03-12-2023 [facility] Absolute lymphocyte countOrd ered By: Ronak Miller on 02-09-2023 Lymphocytes Auto (Unsp spec) [#/Vol] 0.68 10*3/uL 0.83-4.51 [facility] Amorphous sediment detection in urine sediment by light microscopyOrdered By: Ronak Miller on 02-09-2023 Amorphous sediment LM Ql (Urine sed) 1+ URATE [facility] Basophil percentageOrdered B y: Ronak Miller on 02-09-2023 Basophil percentage 0 SEEN /hpf 0-5 [facility] Basophils/100 WBC (Bld) 0.3 % 0-1 [facility] Bilirubin [Mass/Vol] 0.50 mg/dL 0.20-1.00 [facility] Comment on above: For patients on eltr ombopag therapy, use of Dimension [place] TBIL is not recommended. Chloride [Moles/Vol] 106 mmol/L 98-107 [facility] Eosinophils/100 WBC (Bld) 0.9 % 0-5 [facility] Glucose [Mass/Vol] 106 mg/dL 74-106 [facility] Comment on above: Fasting Glucose resu lt from 100 to 125 mg/dL suggests IMPAIRED HOMEOSTASIS per A.D.A. criteria. Neutrophils (Bld) [#/Vol] 9.7 10*3/uL 2.0-7.7 [facility] Neutrophils/100 WBC (Bld) 84.8 % 47-70 [facility] Potassium [Moles/Vol] 4.2 mmol/L 3.5-5.1 [facility] Protein [Mass/Vol] 7.1 g/dL 6.4-8.2 [facility] Sodium [Moles/Vol] 139 mmol/L 136-145 [facility] WBC (Bld) [#/Vol] 11.5 10*3/uL 4.4-11.0 [facility] Bilirubin Test strip Ql (U)O rdered By: Ronak Miller on 02-09-2023 Bilirubin Ql (U) Negative Negative [facility] Blood erythrocytes count (nu mber/volume)Ordered By: Ronak Miller on 02-09-2023 RBC (Bld) [#/Vol] 4.66 10*6/uL 4.6-6.2 [facility] Blood hemoglobin measurement (mass/volume)Ordered By: Ronak Miller on 02-09-2023 Hemoglobin (Bld) [Mass/Vol] 14.0 g/dL 13.0-16.5 [facility] Blood lymphocytes/100 leukoc ytesOrdered By: Ronak Miller on 02-09-2023 Lymphocytes/100 WBC (Bld) 5.9 % 19-41 [facility] Blood monocytes/100 leukocyt esOrdered By: Ronak Miller on 02-09-2023 Monocytes/100 WBC (Bld) 7.8 % 0-10 [facility] Blood platelet mean volumeOr dered By: Ronak Miller on 02-09-2023 Platelet mean volume (Bld) [Entitic vol] 9.1 fL 6.2-12.0 [facility] Determination of erythrocyte mean corpuscular volume (MCV)Ordered By: Ronak Miller on 02-09-2023 MCV (RBC) [Entitic vol] 89.9 fL 80-94 [facility] Hematocrit Auto (Bld) [Volum e fraction]Ordered By: Ronak Miller on 02-09-2023 Hematocrit (Bld) [Volume fraction] 41.9 % 40-54 [facility] Ketones Test strip Ql (U)Ord ered By: Ronak Miller on 02-09-2023 Ketones Ql (U) Negative Negative [facility] Laboratory - Chemistry and C hemistry - challengeOrdered By: Ronak Miller on 02-09-2023 ALP [Catalytic activity/Vol] 85 U/L 45-117 [facility] ALT [Catalytic activity/Vol] 114 U/L 16-61 [facility] CO2 [Moles/Vol] 28.0 mmol/L 21.0-32.0 [facility] Globulin (S) [Mass/Vol] 3.1 g/dL 2.2-4.2 [facility] Lipase [Catalytic activity/Vol] 42 U/L 13-75 [facility] Comment on above: Please note:LIPASE r evised reference range effective 22. New Lipase methodology. Expected to produce lower values than the previous assay method. NEW Reference Range: 13 - 75 U/L Urea nitrogen/Creatinine [Mass ratio] 17.7 mg/mg 10-20 [facility] Laboratory - Hematology and Cell countsOrdered By: Ronak Miller on 02-09-2023 Erythrocyte distribution width (RBC) [Entitic vol] 41.4 fL 35.1-43.9 [facility] Erythrocyte distribution width (RBC) [Ratio] 12.6 % 11.6-14.6 [facility] Immature granulocytes/100 WBC (Bld) 0.300 % 0.0-0.9 [facility] Comment on above: IG% - Immature Granu locytes (promyelocytes, myelocytes and metamyelocytes) > 1% indicates that a LEFT SHIFT is Present. MCH (RBC) [Entitic mass] 30.0 pg 27.0-32.0 [facility] Nucleated RBC/100 WBC (Bld) [Ratio] 0 % 0-5 [facility] MCHC Auto (RBC) [Mass/Vol]Or dered By: Ronak Miller on 02-09-2023 MCHC (RBC) [Mass/Vol] 33.4 g/dL 32-36 [facility] Mucus LM Ql (Urine sed)Order ed By: Ronak Miller on 02-09-2023 Mucus Ql (Urine sed) 0 SEEN /hpf [facility] Nitrite Test strip Ql (U)Ord ered By: Ronak Miller on 02-09-2023 Nitrite Ql (U) Negative Negative [facility] No Panel InformationOrdered By: Ronak Miller on 02-09-2023 Estimated GFR (MDRD) Amer 107 mL/min >60 [facility] Comment on above: GFR Calc Estimated GFR (MDRD) Non-Af Amer 89 mL/min >60 [facility] Comment on above: Non- GFR Calc Troponin I High Sensitivity 4 pg/mL 3.0-78.0 [facility] Comment on above: Please Note: New Jessica t Units and Gender Specific Reference Ranges. For more information see Policy Stat Procedure [place] High Sensitivity Troponin (TNIH) and attachments. Platelets bldOrdered By: Surekha Miller on 02-09-2023 Platelets (Bld) [#/Vol] 242 10*3/uL 150-450 [facility] Protein Test strip Ql (U)Ord ered By: Ronak Miller on 02-09-2023 Protein Ql (U) Negative Negative [facility] Serum or plasma albumin adair urement (mass/volume)Ordered By: Ronak Miller on 02-09-2023 Albumin [Mass/Vol] 4.0 g/dL 3.2-5.0 [facility] Serum or plasma albumin/glob ulin mass ratioOrdered By: Ronak Miller on 02-09-2023 Albumin/Globulin [Mass ratio] 1.3 {ratio} 0.9-2.4 [facility] Serum or plasma calcium adair urement (mass/volume)Ordered By: Ronak Miller on 02-09-2023 Calcium [Mass/Vol] 9.1 mg/dL 8.5-10.1 [facility] Serum or plasma creatinine m easurement (mass/volume)Ordered By: Ronak Miller on 02-09-2023 Creatinine [Mass/Vol] 0.90 mg/dL 0.70-1.30 [facility] Comment on above: The validity of the calculated GFR & GFRAA in patients over 70 years has not been determined. Clinical correlation is essential. Serum or plasma urea nitroge n measurement (mass/volume)Ordered By: Ronak Miller on 02-09-2023 Urea nitrogen [Mass/Vol] 16 mg/dL 7-18 [facility] Squamous epithelial cells de tection in urine sediment by light microscopyOrdered By: Ronak Miller on 02-09-2023 Epithelial cells.squamous LM Ql (Urine sed) 0-5 SEEN /hpf 0-5 [facility] Thin prep Papanicolaou smear with manual screeningOrdered By: Ronak Miller on 02-09-2023 Thin prep Papanicolaou smear with manual screening 144 U/L 15-37 [facility] Thin prep Papanicolaou smear with manual screening 5 5-15 [facility] Urine blood detectionOrdered By: Ronak Miller on 02-09-2023 RBC Ql (U) Negative Negative [facility] RBC Ql (U) 0 SEEN /hpf 0-5 [facility] Urine clarityOrdered By: Surekha Miller on 02-09-2023 Clarity (U) Clear Clear [facility] Urine color determinationOrd ered By: Ronak Miller on 02-09-2023 Color (U) Yellow Yellow [facility] Urine glucose detectionOrder ed By: Ronak Miller on 02-09-2023 Glucose Ql (U) Normal mg/dl Normal [facility] Urine leukocyte esterase det ection by dipstickOrdered By: Ronak Miller on 02-09-2023 Leukocyte esterase Test strip Ql (U) Negative Negative [facility] Urine pHOrdered By: Ronak sainz on 02-09-2023 pH (U) 5.0 [pH] 5.0 - 8.0 [facility] Urine sediment bacteria coun t by microscopy (number/high power field)Ordered By: Ronak Miller on 02-09-2023 Bacteria LM.HPF (Urine sed) [#/Area] 0 /[HPF] None Seen [facility] Urine specific gravity measu rementOrdered By: Ronak Miller on 02-09-2023 Specific gravity (U) [Rel density] 1.015 1.002-1.03 0 [facility] Urobilinogen Auto test strip Ql (U)Ordered By: Ronak Miller on 02-09-2023 Urobilinogen Ql (U) Normal mg/dl Normal [facility] Microbial respiratory cultur eOrdered By: Dr. Dumas on 10-06-2022 Bacteria identified Respiratory culture Nom (Unsp spec) [facility] Gram stain for investigation of transfusion reactionOrdered By: Dr. Dumas on 10-05-2022 Microscopic observation Gram stain Nom (Unsp spec) [facility] Basophil percentageOrdered B y: Jasoneric Nelson on 09-23-2022 Creatinine [Mass/Vol] 1.0 mg/dL 0.70-1.30 [facility] No Panel InformationOrdered By: Jason Nelson on 09-23-2022 Bedside Estimated GFR (eGFR) > 60.0000 mL/min >60 [facility] Influenza virus A and B RNA and SARS-CoV-2 (COVID-19) N gene panel VALARIE+probe (Resp)on 05-02-2022 FLUAV RNA VALARIE+probe Ql (Unsp spec) Negative Negative for Influenza A by RT-PCR [facility] FLUBV RNA VALARIE+probe Ql (Unsp spec) Negative Negative for Influenza B by RT-PCR [facility] SARS-CoV-2 (COVID-19) RNA VALARIE+probe Ql (Resp) SARS-CoV-2 (Agent of COVID-19) Detected by RT-PCR or equivalent method. Abnormal Not Detected [facility] XR RIBS/CHEST 3V AP RIB/OBLS /CXR LEFTon 10-24-2021 [facility] XR Ribs - left Views and [address] st PAon 10-24-2021 IMPRESSION: Negative ribs. Canine Deputy: PSCB Transcribe Date/Time: Oct 24 2021 2:17P [...] displaced or nondisplaced rib fracture. [id number] _USE_DIVIS [facility] OF RADIOLOGY Provider, [facility] - 10/24/2021 * * *Final Report* * [...] nondisplaced rib fracture. IMPRESSION IMPRESSION: Negative ribs. Canine Deputy: THONG Transcribe Date/Time: Oct 24 2021 2:17P Dictated by : KELLY CONRAD MD This examination was interpreted and the report reviewed and electronically signed by: KELLY CONRAD MD on Pop 16 2022 2:20PM [facility] Radiology Study observation (narrative) [facility] XR Ribs - left Views and [address]ina st PAOrdered By: Ccf Provider on 10-24-2021 [facility] Basic Panelon 04-20-2019 Creatinine [Mass/Vol] 0.81 mg/dL Normal 0.67-1.17 [facility] Comment on above: Performed By: #### I RONS #### [facility] [address] [place], [place] [address] Anion gap [Moles/Vol] 7 mmol/L Low 8-16 [facility] Comment on above: Performed By: #### I RONS #### [address] [address] CO2 [Moles/Vol] 30 mmol/L Normal 21-32 [facility] Comment on above: Performed By: #### I RONS #### [address] [address] Urea nitrogen [Mass/Vol] 13 mg/dL Normal 7-18 [facility] Comment on above: Performed By: #### I RONS #### [address] [address] Calcium [Mass/Vol] 8.7 mg/dL Normal 8.5-10.1 [facility] Comment on above: Performed By: #### I RONS #### [address] [address] Glucose [Mass/Vol] 97 mg/dL Normal 70-99 [facility] Comment on above: Performed By: #### I RONS #### [address] [address] Chloride [Moles/Vol] 105 mmol/L Normal 98-107 [facility] Comment on above: Performed By: #### I RONS #### [address] [address] Potassium [Moles/Vol] 4.2 mmol/L Normal 3.5-5.1 [facility] Comment on above: Performed By: #### I RONS #### [address] [address] Sodium [Moles/Vol] 138 mmol/L Normal 136-145 [facility] Comment on above: Performed By: #### I ROJELIO #### [facility] [address] [place] [address] Hemogram/Diffon 04-20-2019 Abs Immature Grans 0.02 thou/cmm Normal 0.00-0.05 [facility] Comment on above: Performed By: #### C BCD1 #### [facility] [address] [place] [address] Abs Neut (ANC) 4.42 thou/cmm Normal 1.78-5.38 [facility] Comment on above: Performed By: #### C BCD1 #### [place] [address] Abs. Baso 0.03 thou/cmm Normal 0.01-0.08 [facility] Comment on above: Performed By: #### C BCD1 #### [place] [address] Abs. [place] 0.59 thou/cmm Normal 0.30-0.82 [facility] Comment on above: Performed By: #### C BCD1 #### [place] [address] Basophils/100 WBC (Bld) 0.4 % Normal [facility] Comment on above: Performed By: #### C BCD1 #### [place] [address] Eosinophils (Bld) [#/Vol] 0.12 thou/cmm Normal 0.04-0.54 [facility] Comment on above: Performed By: #### C BCD1 #### [facility] [address] [place] [address] Eosinophils/100 WBC (Bld) 1.8 % Normal [facility] Comment on above: Performed By: #### C BCD1 #### [place] [address] Erythrocyte distribution width (RBC) [Ratio] 14.5 % High 11.6-14.4 [facility] Comment on above: Performed By: #### C BCD1 #### [facility] [address] [place], [place] [address] Hematocrit (Bld) [Volume fraction] 38.0 % Low 40.1-51.0 [facility] Comment on above: Performed By: #### C BCD1 #### [facility] [address] [place], [place] [address] Hemoglobin (Bld) [Mass/Vol] 12.6 g/dL Low 13.7-17.5 [facility] Comment on above: Performed By: #### C BCD1 #### [facility] [address] [place] [address] Immature Grans 0.30 % Normal [facility] Comment on above: Performed By: #### C BCD1 #### [facility] [address] [place] [address] Lymphocytes (Bld) [#/Vol] 1.59 thou/cmm Normal 0.84-2.85 [facility] Comment on above: Performed By: #### C BCD1 #### [facility] [address] [place], [place] [address] Lymphocytes/100 WBC (Bld) 23.5 % Normal [facility] Comment on above: Performed By: #### C BCD1 #### [facility] [address] [place] [address] MCH (RBC) [Entitic mass] 30.1 pg Normal 25.7-32.2 [facility] Comment on above: Performed By: #### C BCD1 #### [facility] [address] [place] [address] MCHC (RBC) [Mass/Vol] 33.2 % Normal 32.3-36.5 [facility] Comment on above: Performed By: #### C BCD1 #### [facility] [address] [place], [place] [address] MCV (RBC) [Entitic vol] 90.9 fL Normal 83.2-95.6 [facility] Comment on above: Performed By: #### C BCD1 #### [facility] [address] [place], [place] [address] Monocytes/100 WBC (Bld) 8.7 % Normal [facility] Comment on above: Performed By: #### C BCD1 #### [facility] [facility] [place], [place] [address] Platelet mean volume (Bld) [Entitic vol] 9.1 fL Normal 8.7-12.0 [facility] Comment on above: Performed By: #### C BCD1 #### [facility] [address] [place], [place] [address] Platelets (Bld) [#/Vol] 231 thou/cmm Normal 141-365 [facility] Comment on above: Performed By: #### C BCD1 #### [facility] [address] [place] [address] RBC (Bld) [#/Vol] 4.18 mil/cmm Low 4.63-6.08 [facility] Comment on above: Performed By: #### C BCD1 #### [facility] [address] [place] [address] RDW SD 48.9 fl High 36.1-45.8 [facility] Comment on above: Performed By: #### C BCD1 #### [facility] [address] [place] [address] Seg Neutrophil 65.3 % Normal [facility] Comment on above: Performed By: #### C BCD1 #### [facility] [address] [place], [place] [address] WBC (Bld) [#/Vol] 6.77 thou/cmm Normal 4.23-9.07 [facility] Comment on above: Performed By: #### C BCD1 #### [facility] [address] [place], [place] [address] MDRD GFRon 04-20-2019 GFR/1.73 sq M predicted among non-blacks MDRD (S/P/Bld) [Vol rate/Area] mL/min/{1.73_m2} Normal >60mL/min/ 1.73m2 [facility] Comment on above: Result Comment: If t he patient is , multiply the result by 1.210. Performed By: #### G FR #### [facility] [address] [place], [place] [address] Basic Panelon 04-19-2019 Creatinine [Mass/Vol] 0.64 mg/dL Low 0.67-1.17 [facility] Comment on above: Performed By: #### P 8 #### [facility] [address] [place], [place] [address] Anion gap [Moles/Vol] 9 mmol/L Normal 8-16 [facility] Comment on above: Performed By: #### P 8 #### [facility] [address] [place], [place] [address] CO2 [Moles/Vol] 25 mmol/L Normal 21-32 [facility] Comment on above: Performed By: #### P 8 #### [facility] [address] [place], [place] [address] Glucose [Mass/Vol] 112 mg/dL High 70-99 [facility] Comment on above: Performed By: #### P 8 #### [facility] [address] [place], [place] [address] Urea nitrogen [Mass/Vol] 14 mg/dL Normal 7-18 [facility] Comment on above: Performed By: #### P 8 #### [facility] [address] [place], [place] [address] Calcium [Mass/Vol] 8.4 mg/dL Low 8.5-10.1 [facility] Comment on above: Performed By: #### P 8 #### [facility] [address] [place], [place] [address] Chloride [Moles/Vol] 109 mmol/L High 98-107 [facility] Comment on above: Performed By: #### P 8 #### [facility] [address] [place], [place] [address] Potassium [Moles/Vol] 3.9 mmol/L Normal 3.5-5.1 [facility] Comment on above: Performed By: #### P 8 #### [facility] [address] [place], [place] [address] Sodium [Moles/Vol] 139 mmol/L Normal 136-145 [facility] Comment on above: Performed By: #### P 8 #### [facility] [address] [place] [address] Hemogram/Diffon 04-19-2019 Abs Immature Grans 0.05 thou/cmm Normal 0.00-0.05 [facility] Comment on above: Performed By: #### C BCD1 #### [facility] [address] [place] [address] Abs Neut (ANC) 11.22 thou/cmm High 1.78-5.38 [facility] Comment on above: Performed By: #### C BCD1 #### [facility] [address] [place] [address] Abs. Baso 0.03 thou/cmm Normal 0.01-0.08 [facility] Comment on above: Result Comment: Smea r scanned; tech agrees with automated differential Performed By: #### C BCD1 #### [facility] [address] [place] [address] Abs. Hutch[place] 0.92 thou/cmm High 0.30-0.82 [facility] Comment on above: Performed By: #### C BCD1 #### [facility] [address] [place] [address] Basophils/100 WBC (Bld) 0.2 % Normal [facility] Comment on above: Performed By: #### C BCD1 #### [place] [address] Eosinophils (Bld) [#/Vol] 0.00 thou/cmm Low 0.04-0.54 [facility] Comment on above: Performed By: #### C BCD1 #### [facility] [address] [place] [address] Eosinophils/100 WBC (Bld) 0.0 % Normal [facility] Comment on above: Performed By: #### C BCD1 #### [facility] [address] [place] [address] Immature Grans 0.40 % Normal [facility] Comment on above: Performed By: #### C BCD1 #### [facility] [address] [place] [id number] Lymphocytes (Bld) [#/Vol] 1.15 thou/cmm Normal 0.84-2.85 [facility] Comment on above: Performed By: #### C BCD1 #### [facility] [address] [place], [place] [address] Lymphocytes/100 WBC (Bld) 8.6 % Normal [facility] Comment on above: Performed By: #### C BCD1 #### [facility] [address] [place], [place] [address] Monocytes/100 WBC (Bld) 6.9 % Normal [facility] Comment on above: Performed By: #### C BCD1 #### [facility] [address] [place] [address] Seg Neutrophil 83.9 % Normal [facility] Comment on above: Performed By: #### C BCD1 #### [facility] [address] [place] [address] Erythrocyte distribution width (RBC) [Ratio] 14.5 % High 11.6-14.4 [facility] Comment on above: Performed By: #### C BCD1 #### [facility] [address] [place] [address] Hematocrit (Bld) [Volume fraction] 39.0 % Low 40.1-51.0 [facility] Comment on above: Performed By: #### C BCD1 #### [facility] [address] [place] [address] Hemoglobin (Bld) [Mass/Vol] 13.0 g/dL Low 13.7-17.5 [facility] Comment on above: Performed By: #### C BCD1 #### [facility] [address] [place] [address] MCH (RBC) [Entitic mass] 30.0 pg Normal 25.7-32.2 [facility] Comment on above: Performed By: #### C BCD1 #### [facility] [address] [place], [place] [address] MCHC (RBC) [Mass/Vol] 33.3 % Normal 32.3-36.5 [facility] Comment on above: Performed By: #### C BCD1 #### [facility] [address] [place] [address] MCV (RBC) [Entitic vol] 89.9 fL Normal 83.2-95.6 [facility] Comment on above: Performed By: #### C BCD1 #### [facility] [address] [place] [address] Platelet mean volume (Bld) [Entitic vol] 9.3 fL Normal 8.7-12.0 [facility] Comment on above: Performed By: #### C BCD1 #### [facility] [address] [place] [address] Platelets (Bld) [#/Vol] 258 thou/cmm Normal 141-365 [facility] Comment on above: Performed By: #### C BCD1 #### [place] [address] RBC (Bld) [#/Vol] 4.34 mil/cmm Low 4.63-6.08 [facility] Comment on above: Performed By: #### C BCD1 #### [place] [address] RDW SD 47.3 fl High 36.1-45.8 [facility] Comment on above: Performed By: #### C BCD1 #### [place] [address] WBC (Bld) [#/Vol] 13.37 thou/cmm High 4.23-9.07 [facility] Comment on above: Performed By: #### C BCD1 #### [place] [address] Surgical Tissue Examon 04-18 Surgical Tissue Exam Test performed at [place] [address] NAME: TARA ARELLANO REQUESTING: GABBI WILLARD MD [...] PRINTED: 04/25/2019 Page 1 of 1 Normal [facility] Comment on above: Performed By: #### I RONS #### [place] [address] Ferritinon 02-07-2019 Ferritin [Mass/Vol] 858.30 ng/mL High 26.00-38 8. 00 [facility] Comment on above: Performed By: #### F ERR #### [place] [address] Oncology Hemogram/Diffon Abs. Baso 0.02 thou/cmm Normal 0.00-0.08 [facility] Comment on above: Result Comment: Test ing performed at: [facility], [address] [place] [address] Performed By: #### O CBCD #### [place] [address] Abs. [place] 0.39 thou/cmm Normal 0.19-0.80 [facility] Comment on above: Performed By: #### O CBCD #### [place] [address] Abs. Neut (ANC) 2.68 thou/cmm Normal 1.35-7.21 [facility] Comment on above: Performed By: #### O CBCD #### [place] [address] Basophils/100 WBC (Bld) 0.4 % Normal [facility] Comment on above: Performed By: #### O CBCD #### [address] [address] Eosinophils (Bld) [#/Vol] 0.20 thou/cmm Normal 0.00-0.36 [facility] Comment on above: Performed By: #### O CBCD #### [facility] [address] [place] [address] Eosinophils/100 WBC (Bld) 4.3 % Normal [facility] Comment on above: Performed By: #### O CBCD #### [place] [address] Erythrocyte distribution width (RBC) [Ratio] 19.7 % High 11.8-14.5 [facility] Comment on above: Performed By: #### O CBCD #### [place] [address] Hematocrit (Bld) [Volume fraction] 36.5 % Low 39.6-50.7 [facility] Comment on above: Performed By: #### O CBCD #### [place] [address] Hemoglobin (Bld) [Mass/Vol] 12.2 g/dL Low 13.2-17.4 [facility] Comment on above: Performed By: #### O CBCD #### [place] [address] Lymphocytes (Bld) [#/Vol] 1.41 thou/cmm Normal 0.68-2.93 [facility] Comment on above: Performed By: #### O CBCD #### [place] [address] Lymphocytes/100 WBC (Bld) 30.0 % Normal [facility] Comment on above: Performed By: #### O CBCD #### [place] [address] MCH (RBC) [Entitic mass] 26.9 pg Low 27.4-32.8 [facility] Comment on above: Performed By: #### O CBCD #### [place] [address] MCHC (RBC) [Mass/Vol] 33.4 % Normal 31.9-35.6 [facility] Comment on above: Performed By: #### O CBCD #### [facility] [address] [place] [address] MCV (RBC) [Entitic vol] 80.4 fL Low 81.8-95.6 [facility] Comment on above: Performed By: #### O CBCD #### [facility] [address] [place] [address] Monocytes/100 WBC (Bld) 8.2 % Normal [facility] Comment on above: Performed By: #### O CBCD #### [facility] [address] [place] [address] Platelet mean volume (Bld) [Entitic vol] 8.7 fL Low 8.8-12.1 [facility] Comment on above: Performed By: #### O CBCD #### [place] [address] Platelets (Bld) [#/Vol] 254 thou/cmm Normal 150-370 [facility] Comment on above: Performed By: #### O CBCD #### [place] [address] RBC (Bld) [#/Vol] 4.54 mil/cmm Normal 4.22-5.80 [facility] Comment on above: Performed By: #### O CBCD #### [place] [address] Seg Neutrophil 57.1 % Normal [facility] Comment on above: Performed By: #### O CBCD #### [place] [address] WBC (Bld) [#/Vol] 4.7 thou/cmm Normal 4.4-9.7 [facility] Comment on above: Performed By: #### O CBCD #### [facility] [address] [place] [address] Ferritinon 12-23-2018 Ferritin [Mass/Vol] 9.70 ng/mL Low 26.00-38 8. 00 [facility] Comment on above: Performed By: #### F ERR #### [facility] [address] [place] [address] Hemogramon 12-23-2018 Erythrocyte distribution width (RBC) [Ratio] 18.1 % High 11.6-14.4 [facility] Comment on above: Performed By: #### C BC1 #### [facility] [address] [place] [address] Hematocrit (Bld) [Volume fraction] 32.6 % Low 40.1-51.0 [facility] Comment on above: Performed By: #### C BC1 #### [facility] [address] [place] [address] Hemoglobin (Bld) [Mass/Vol] 10.1 g/dL Low 13.7-17.5 [facility] Comment on above: Performed By: #### C BC1 #### [place] [address] MCH (RBC) [Entitic mass] 24.3 pg Low 25.7-32.2 [facility] Comment on above: Performed By: #### C BC1 #### [facility] [address] [place] [address] MCHC (RBC) [Mass/Vol] 31.0 % Low 32.3-36.5 [facility] Comment on above: Performed By: #### C BC1 #### [facility] [address] [place] [address] MCV (RBC) [Entitic vol] 78.4 fL Low 83.2-95.6 [facility] Comment on above: Performed By: #### C BC1 #### [facility] [address] [place] [address] Platelet mean volume (Bld) [Entitic vol] 9.1 fL Normal 8.7-12.0 [facility] Comment on above: Performed By: #### C BC1 #### [facility] [address] [place] [address] Platelets (Bld) [#/Vol] 261 thou/cmm Normal 141-365 [facility] Comment on above: Performed By: #### C BC1 #### [facility] [address] [place] [address] RBC (Bld) [#/Vol] 4.16 mil/cmm Low 4.63-6.08 [facility] Comment on above: Performed By: #### C BC1 #### [facility] [address] [place] [address] RDW SD 51.1 fl High 36.1-45.8 [facility] Comment on above: Performed By: #### C BC1 #### [facility] [address] [place] [address] WBC (Bld) [#/Vol] 3.48 thou/cmm Low 4.23-9.07 [facility] Comment on above: Performed By: #### C BC1 #### [facility] [address] [place] [address] Iron % Saturationon 12-24-19 19 Iron % Saturation 12 % Low 20-55 [facility] Comment on above: Performed By: #### I RONS #### [facility] [address] [place] [address] Iron Binding Cap. 425 ug/dL Normal 250-450 [facility] Comment on above: Performed By: #### I RONS #### [place] [address] Iron Serum 53 ug/dL Low 65-175 [facility] Comment on above: Performed By: #### I RONS #### [place] [address] Vitamin B12on 12-23-2018 Cobalamin (Vitamin B12) [Mass/Vol] 589 pg/mL Normal 193-986 [facility] Comment on above: Performed By: #### B 12 #### [facility] [address] [place] [address] Lab Report: Basic Metabolic Profile (BMP)on 09-08-2016 Anion gap 7 mmol/L Invalid Interpretation Code 09-22 [facility] Work Phone: Anion gap molar conc 7 mmol/L 09-[address] [facility] Work Phone: BUN/Creatinine Ratio 11.4 RATIO 10-20 [employer] [facility] Work Phone: [phone] Calcium 8.7 mg/dL 8.5-10.1 [facility] Work Phone: [phone] Chloride 110 mmol/L High 98-107 [facility] Work Phone: [phone] CO2 25.0 mmol/L Invalid Interpretation Code 21.0-32.0 [facility] Work Phone: [phone] CO2 ppres (BldV) 25.0 mmol/L 21.0-32.0 [facility] Work Phone: [phone] Creatinine 0.79 mg/dL 0.70-1.30 [facility] Work Phone: [phone] eGFR (non-black) 128 mL/min/{1.73_m2} Invalid Interpretation Code >60 [facility] Work Phone: [phone] eGFR (non-black) 106 mL/min/{1.73_m2} >60 [facility] Work Phone: [phone] GFR - AA 128 mL/min >60 [facility] Work Phone: [phone] Glucose 97 mg/dL Invalid Interpretation Code 70-110 [facility] Work Phone: [phone] Glucose mass conc 97 mg/dL 70-110 [facility] Work Phone: [phone] Potassium 3.9 mmol/L 3.5-5.1 [facility] Work Phone: [phone] Sodium 142 mmol/L 136-145 [facility] Work Phone: [phone] Urea nitrogen 9 mg/dL 7-18 [facility] Work Phone: [phone] Lab Report: CBC-Complete Blo od Cnt No Diffon 09-08-2016 Erythrocyte distribution width Ratio (RBC) 44.8 fL High 35.1-43.9 [facility] Work Phone: [phone] Erythrocyte distribution width Ratio (RBC) 13.5 % 11.6-14.6 [facility] Work Phone: [phone] Erythrocytes (RBC) 3.95 10*6/uL Low 4.6-6.[address] [facility] Work Phone: [phone] Hematocrit (HCT) 36.1 % Low 40-54 [facility] Work Phone: [phone] Hematocrit Volume Fraction (Bld) 36.1 % Low 40-54 [facility] Work Phone: [phone] Hemoglobin (HGB) 12.3 g/dL Low 13.0-16.5 [facility] Work Phone: [phone] MCH [...] MCV 91.4 fL Invalid Interpretation Code 80-94 [facility] Work Phone: [phone] MCV Entitic volume (RBC) 91.4 fL 80-94 [facility] Work Phone: [phone] Platelet mean volume Entitic volume (Bld) 8.5 fL 6.2-12.0 [facility] Work Phone: [phone] Platelets 246 10*3/mm3 Invalid Interpretation Code 150-450 [facility] Work Phone: [phone] Platelets #/vol (Bld) 246 10*3/mm3 150-450 [facility] Work Phone: [phone] PMV by Kym 8.5 fL Invalid Interpretation Code 6.2-12.0 [facility] Work Phone: [phone] RBC #/vol (Bld) 3.95 10*6/uL Low 4.6-6.2 [facility] Work Phone: [phone] RDW-CA 13.5 % Invalid Interpretation Code 11.6-14.6 [facility] Work [phone] red blood cell distribution width, size density 44.8 fL High 35.1-43.9 [facility] Work Phone: [phone] WBC #/vol (Bld) 3.6 10*3/uL Low 4.4-11.0 [facility] Work Phone: [phone] WBC (Leukocytes) 3.6 10*3/uL Low 4.4-11.0 [facility] Work Phone: [phone] Lab Report: Partial Thrombop last Timeon 09-08-2016 aPTT 36.5 s High 24.1-36.2 [facility] Work Phone: [phone] Lab Report: Prothrombin Time w/INRon 09-08-2016 Coagulation tissue factor induced in platelet poor plasma 12.7 s 11.7-14.9 [facility] Work Phone: [phone] INR Coag RelTime (PPP) 1.0 {INR} [facility] Work Phone: [phone] INR in blood by coagulation 1.0 {INR} Invalid Interpretation Code [facility] Work Phone: [phone] Office Visiton 08-20-2016 Dietary management education, guidance, and counseling (procedure) yes Invalid Interpretation Code [facility] Work Phone: [phone] Documentation of current medications (procedure) Done Invalid Interpretation Code [facility] Phone: [phone] Protein mass conc Done [facility] Work Phone: [phone] Tobacco smoking status NHIS Former smoker [facility] Work Phone: [phone] Tobacco use HS Former smoker Invalid Interpretation Code [facility] Work Phone: [phone] Replaced Document: [facility] E CG Observationson 08-20-2016 EKG QRS axis 15 deg [facility] Work Phone: [phone] electrocardiogram interpretation Sinus Rhythm WITHIN NORMAL LIMITS Invalid Interpretation Code [facility] Work Phone: [phone] GE use only - for [employer] import when terms are not otherwise specified 391 ms Invalid Interpretation Code [facility] Phone: [phone] Interpretation Sinus Rhythm WITHIN NORMAL LIMITS [facility] Work Phone: P [place] 56 deg [facility] Work Phone: P wave axis, electrocardiogram 56 deg Invalid Interpretation Code [facility] Work Phone: DC Interval 152 ms [facility] Work Phone: DC interval, electrocardiogram 152 ms Invalid Interpretation Code [facility] Work Phone: Pulse (Heart Rate) 71 /min Invalid Interpretation Code [facility] Work Phone: QRS axis, electrocardiogram 15 deg Invalid Interpretation Code [facility] Work Phone: QRS Duration 94 ms [facility] Work Phone: QRS duration, electrocardiogram 94 ms Invalid Interpretation Code [facility] Work Phone: QT Interval new path ms [facility] Work Phone: QT interval, electrocardiogram new path ms Invalid Interpretation Code [facility] Work Phone: QTc Beard 391 ms [facility] Work Phone: T [place] 46 deg [facility] Work Phone: T wave axis, electrocardiogram 46 deg Invalid Interpretation Code [facility] Work Phone: [phone] Clinical Lists Update: [facility] 08-19-2016 Left ventricular Ejection fraction 61 % [facility] Work Phone: [phone] Clinical Lists Update: [facility] 06-18-2016 Alanine aminotransferase (ALT) 23 U/L [facility] Work Phone: [phone] Alkaline phosphatase (ALP) 63 U/L Invalid Interpretation Code [facility] Work Phone: [phone] ALP enzyme act/vol (Bld) 63 U/L [facility] Work Phone: Aspartate aminotransferase (AST) 23 U/L [facility] Work Phone: Cholesterol 222 mg/dL High [facility] Work Phone: HDL Cholesterol 34 mg/dL Low [facility] Work Phone: LDL Cholesterol 139 mg/dL High [facility] Work Phone: Triglyceride 246 mg/dL High [facility] Work Phone: [phone] very low density lipoproteins 49 mg/dL High [facility] Work Phone: [phone] Vital Signs Date Time Vital Sign Value Performing Clinician Facility 09-09-2024 10:16-0400 Body mass index (BMI) [Ratio] 26.39 kg/m2 Teri Gross MD Work Phone: [facility] 09-09-2024 10:16-0400 Body temperature 97 [degF] Teri Gross MD Work Phone: [facility] 09-09-2024 10:16-0400 Body weight 81.65 kg Teri Gross MD Work Phone: [facility] 09-09-2024 10:16-0400 Diastolic blood pressure 72 mm[Hg] eTri Gross MD Work Phone: [facility] 09-09-2024 10:16-0400 Heart rate 82 /min Teri Gross MD Work Phone: [facility] 09-09-2024 10:16-0400 Respiratory rate 20 /min Teri Gross MD Work Phone: [facility] 09-09-2024 10:16-0400 SaO2% (BldA) [Mass fraction] 97 % Teri Gross MD Work Phone: [facility] 09-09-2024 10:16-0400 Systolic blood pressure 128 mm[Hg] Teri Gross MD Work Phone: [facility] 08-18-2024 11:19-0400 Body mass index (BMI) [Ratio] 27.12 kg/m2 Jaimie Jett SPECTROGRAPH OPERATOR.COUNTER CASER Work Phone: [facility] 08-18-2024 11:19-0400 Body temperature 97.59 [degF] Jaimie Jett SPECTROGRAPH OPERATOR.COUNTER CASER Work Phone: [facility] 08-18-2024 11:19-0400 Body weight 83.92 kg Jaimie Suppan SPECTROGRAPH OPERATOR.COUNTER CASER Work Phone: [facility] 08-18-2024 11:19-0400 Diastolic blood pressure 72 mm[Hg] Jaimie Suppan SPECTROGRAPH OPERATOR.COUNTER CASER Work Phone: [facility] 08-18-2024 11:19-0400 Heart rate 76 /min Jaimie Suppan SPECTROGRAPH OPERATOR.COUNTER CASER Work Phone: [facility] 08-18-2024 11:19-0400 SaO2% (BldA) [Mass fraction] 98 % Jaimie Suppan SPECTROGRAPH OPERATOR.COUNTER CASER Work Phone: [facility] 08-18-2024 11:19-0400 Systolic blood pressure 128 mm[Hg] Jaimie Suppan SPECTROGRAPH OPERATOR.COUNTER CASER Work Phone: [facility] 07-14-2024 09:34-0500 Body mass index (BMI) [Ratio] 27.12 kg/m2 Teri Gross MD Work Phone: [facility] 07-14-2024 09:34-0500 Body weight 83.92 kg Teri Gross MD Work Phone: [facility] 07-14-2024 09:34-0500 Diastolic blood pressure 70 mm[Hg] Teri Gross MD Work Phone: [facility] 07-14-2024 09:34-0500 Heart rate 81 /min Teri Gross MD Work Phone: [facility] 07-14-2024 09:34-0500 Respiratory rate 16 /min Teri Gross MD Work Phone: [facility] 07-14-2024 09:34-0500 SaO2% (BldA) [Mass fraction] 98 % Teri Gross MD Work Phone: [facility] 07-14-2024 09:34-0500 Systolic blood pressure 132 mm[Hg] Teri Gross MD Work Phone: [facility] 07-05-2024 11:59-0500 Body mass index (BMI) [Ratio] 26.98 kg/m2 Jaimie Jett APRN.COUNTER CASER Work Phone: [facility] 07-05-2024 11:59-0500 Body temperature 97.81 [degF] Jaimie Jett APRN.COUNTER CASER Work Phone: [facility] 07-05-2024 11:59-0500 Body weight 83.46 kg Jaimie Jett APRN.COUNTER CASER Work Phone: [facility] 07-05-2024 11:59-0500 Diastolic blood pressure 54 mm[Hg] Jaimie Jett APRN.COUNTER CASER Work Phone: [facility] [facility] 07-05-2024 11:59-0500 Heart rate 88 /min Jaimie Jett APRN.COUNTER CASER Work Phone: [facility] 07-05-2024 11:59-0500 SaO2% (BldA) [Mass fraction] 99 % Jaimie Jett APRN.COUNTER CASER Work Phone: [facility] 07-05-2024 11:59-0500 Systolic blood pressure 110 mm[Hg] Jaimie Jett APRN.COUNTER CASER Work Phone: [facility] 07-01-2024 13:30-0500 Body mass index (BMI) [Ratio] 25.66 kg/m2 Lew Bird APRN.COUNTER CASER Work Phone: [facility] 07-01-2024 13:30-0500 Body weight 79.38 kg Lew Bird APRN.COUNTER CASER Work Phone: [facility] 07-01-2024 13:30-0500 Diastolic blood pressure 71 mm[Hg] Lew Bird APRN.COUNTER CASER Work Phone: [facility] 07-01-2024 13:30-0500 Heart rate 82 /min Lew Bird APRN.COUNTER CASER Work Phone: [facility] 07-01-2024 13:30-0500 SaO2% (BldA) [Mass fraction] 98 % Lew Bird APRN.COUNTER CASER Work Phone: [facility] 07-01-2024 13:30-0500 Systolic blood pressure 120 mm[Hg] Lew Bird SPECTROGRAPH OPERATOR.COUNTER CASER Work Phone: [facility] 06-21-2024 15:35-0500 Body mass index (BMI) [Ratio] 26.68 kg/m2 Jaimie Suppan SPECTROGRAPH OPERATOR.COUNTER CASER Work Phone: [facility] 06-21-2024 15:35-0500 Body temperature 101.41 [degF] Jaimie Suppan SPECTROGRAPH OPERATOR.COUNTER CASER Work Phone: [facility] 06-21-2024 15:35-0500 Body weight 82.56 kg Jaimie Suppan SPECTROGRAPH OPERATOR.COUNTER CASER Work Phone: [facility] 06-21-2024 15:35-0500 Diastolic blood pressure 72 mm[Hg] Jaimie Suppan SPECTROGRAPH OPERATOR.COUNTER CASER Work Phone: [facility] 06-21-2024 15:35-0500 Heart rate 105 /min Jaimie Suppan SPECTROGRAPH OPERATOR.COUNTER CASER Work Phone: [facility] 06-21-2024 15:35-0500 Respiratory rate 14 /min Jaimie Suppan SPECTROGRAPH OPERATOR.COUNTER CASER Work Phone: [facility] 06-21-2024 15:35-0500 SaO2% (BldA) [Mass fraction] 95 % Jaimie Suppan SPECTROGRAPH OPERATOR.COUNTER CASER Work Phone: [facility] Comment on above: on room air 06-21-2024 15:35-0500 Systolic blood pressure 120 mm[Hg] Jaimie Suppan SPECTROGRAPH OPERATOR.COUNTER CASER Work Phone: [facility] 06-15-2024 09:41-0500 Body height 175.9 cm Andry Jean-Baptiste MD Work Phone: [facility] 06-15-2024 09:41-0500 Body mass index (BMI) [Ratio] 26.39 kg/m2 Andry Jean-Baptiste MD Work Phone: [facility] 06-15-2024 09:41-0500 Body weight 81.65 kg Andry Jean-Baptiste MD Work Phone: [facility] 06-15-2024 09:41-0500 Diastolic blood pressure 68 mm[Hg] Andry Jean-Baptiste MD Work Phone: [facility] 06-15-2024 09:41-0500 Heart rate 73 /min Andry Jean-Baptiste MD Work Phone: [facility] 06-15-2024 09:41-0500 SaO2% (BldA) [Mass fraction] 97 % Andry Jean-Baptiste MD Work Phone: [facility] 06-15-2024 09:41-0500 Systolic blood pressure 124 mm[Hg] Andry Jean-Baptiste MD Work Phone: [facility] 04-06-2024 12:07-0500 Diastolic blood pressure 62 mm[Hg] Andry Jean-Baptiste MD Work Phone: [facility] 04-06-2024 12:07-0500 Systolic blood pressure 122 mm[Hg] Andry Jean-Baptiste MD Work Phone: [facility] 04-06-2024 11:45-0500 Body mass index (BMI) [Ratio] 26.43 kg/m2 Anrdy Jean-Baptiste MD Work Phone: [facility] 04-06-2024 11:45-0500 Body weight 81.19 kg Andry Jean-Baptiset MD Work Phone: [facility] 04-06-2024 11:45-0500 Heart rate 72 /min Andry Jean-Baptiste MD Work Phone: [facility] 04-06-2024 11:45-0500 Respiratory rate 16 /min Andry Jean-Baptiste MD Work Phone: [facility] 12-08-2023 09:18-0400 Body mass index (BMI) [Ratio] 26.29 kg/m2 Irma Perez PA-C Work Phone: [facility] 12-08-2023 09:18-0400 Body temperature 97.3 [degF] Irma Perez PA-C Work Phone: [facility] 12-08-2023 09:18-0400 Body weight 80.74 kg Irmajason Perez PA-C Work Phone: [facility] 12-08-2023 09:18-0400 Diastolic blood pressure 62 mm[Hg] Irmajason Perez PA-C Work Phone: [facility] 12-08-2023 09:18-0400 Heart rate 77 /min Irma Perez PA-C Work Phone: [facility] 12-08-2023 09:18-0400 Respiratory rate 16 /min Irmajason Perez PA-C Work Phone: [facility] 12-08-2023 09:18-0400 SaO2% (BldA) [Mass fraction] 94 % Irma Perez PA-C Work Phone: [facility] 12-08-2023 09:18-0400 Systolic blood pressure 102 mm[Hg] Irma Perez PA-C Work Phone: [facility] 10-14-2023 09:44-0400 Diastolic blood pressure 70 mm[Hg] Maria De Jesus Radha PA-C Work Phone: [facility] 10-14-2023 09:44-0400 Heart rate 68 /min Maria De Jesus Radha PA-C Work Phone: [facility] 10-14-2023 09:44-0400 Respiratory rate 14 /min Maria De Jesus Radha PA-C Work Phone: [facility] 10-14-2023 09:44-0400 SaO2% (BldA) [Mass fraction] 98 % Maria De Jesus Radha PA-C Work Phone: [facility] 10-14-2023 09:44-0400 Systolic blood pressure 122 mm[Hg] Maria De Jesus Radha PA-C Work Phone: [facility] 10-02-2023 11:50-0400 Body mass index (BMI) [Ratio] 25.99 kg/m2 Andry Jean-Baptiste MD Work Phone: [facility] 10-02-2023 11:50-0400 Body temperature 97 [degF] Andry Jean-Baptiste MD Work Phone: [facility] 10-02-2023 11:50-0400 Body weight 79.83 kg Andry Jean-Baptiste MD Work Phone: [facility] 10-02-2023 11:50-0400 Diastolic blood pressure 72 mm[Hg] Andry Jean-Baptiste MD Work Phone: [facility] 10-02-2023 11:50-0400 Heart rate 79 /min Andry Jean-Baptiste MD Work Phone: [facility] 10-02-2023 11:50-0400 SaO2% (BldA) [Mass fraction] 97 % Andry Jean-Baptiste MD Work Phone: [facility] 10-02-2023 11:50-0400 Systolic blood pressure 120 mm[Hg] Andry Jean-Baptiste MD Work Phone: [facility] 09-20-2023 16:00-0400 Body temperature 98.9 [degF] [facility] 09-20-2023 16:00-0400 Diastolic blood pressure 45 mm[Hg] [facility] 09-20-2023 16:00-0400 Heart rate 103 /min [facility] 09-20-2023 16:00-0400 Inhaled oxygen flow rate 3 L/min [facility] 09-20-2023 16:00-0400 Respiratory rate 25 /min [facility] 09-20-2023 16:00-0400 SaO2% (BldA) [Mass fraction] 94 % [facility] 09-20-2023 16:00-0400 Systolic blood pressure 121 mm[Hg] [facility] 09-20-2023 13:02-0400 Body height 180.34 cm [facility] 09-20-2023 13:02-0400 Body mass index (BMI) [Ratio] 25.3 kg/m2 [facility] 09-20-2023 13:02-0400 Body weight 82.46 kg [facility] 09-18-2023 15:09-0400 Body mass index (BMI) [Ratio] 27.17 kg/m2 Lew Bird APRN.COUNTER CASER Work Phone: [facility] 09-18-2023 15:09-0400 Body temperature 100.71 [degF] Lew Bird APRN.COUNTER CASER Work Phone: [facility] 09-18-2023 15:09-0400 Body weight 83.46 kg Lew Bird APRN.COUNTER CASER Work Phone: [facility] 09-18-2023 15:09-0400 Diastolic blood pressure 60 mm[Hg] Lew Bird SPECTROGRAPH OPERATOR.COUNTER CASER Work Phone: [facility] 09-18-2023 15:09-0400 Respiratory rate 16 /min Lew Bird APRN.COUNTER CASER Work Phone: [facility] 09-18-2023 15:09-0400 SaO2% (BldA) [Mass fraction] 95 % Lew Bird SPECTROGRAPH OPERATOR.COUNTER CASER Work Phone: [facility] 09-18-2023 15:09-0400 Systolic blood pressure 148 mm[Hg] Lew Bird SPECTROGRAPH OPERATOR.COUNTER CASER Work Phone: [facility] 07-23-2023 13:23-0400 Body weight 85.82 kg Teri Gross MD Work Phone: [facility] 07-23-2023 13:23-0400 Diastolic blood pressure 60 mm[Hg] Teri Gross MD Work Phone: [facility] 07-23-2023 13:23-0400 Heart rate 77 /min Teri Gross MD Work Phone: [facility] 07-23-2023 13:23-0400 Respiratory rate 18 /min Teri Gross MD Work Phone: [facility] 07-23-2023 13:23-0400 SaO2% (BldA) [Mass fraction] 94 % Teri Gross MD Work Phone: [facility] 07-23-2023 13:23-0400 Systolic blood pressure 120 mm[Hg] Teri Gross MD Work Phone: [facility] 05-18-2023 14:43-0500 Diastolic blood pressure 70 mm[Hg] [facility] 05-18-2023 14:43-0500 Heart rate 82 /min [facility] 05-18-2023 14:43-0500 Respiratory rate 12 /min [facility] 05-18-2023 14:43-0500 SaO2% (BldA) [Mass fraction] 93 % [facility] 05-18-2023 14:43-0500 Systolic blood pressure 147 mm[Hg] [facility] 05-18-2023 12:11-0500 Body height 177.8 cm [facility] 05-18-2023 12:11-0500 Body mass index (BMI) [Ratio] 25.9 kg/m2 [facility] 05-18-2023 12:11-0500 Body temperature 96.7 [degF] [facility] 05-18-2023 12:11-0500 Body weight 82.1 kg [facility] 04-28-2023 11:27-0500 Body height 176.5 cm Andry Jean-Baptiste MD Work Phone: [facility] 04-28-2023 11:27-0500 Body weight 83.92 kg Andry Jean-Baptiste MD Work Phone: [facility] 04-28-2023 11:27-0500 Diastolic blood pressure 74 mm[Hg] Andry Jean-Baptiste MD Work Phone: [facility] 04-28-2023 11:27-0500 Heart rate 81 /min Andry Jean-Baptiste MD Work Phone: [facility] 04-28-2023 11:27-0500 Respiratory rate 18 /min Andry Jean-Baptiste MD Work Phone: [facility] 04-28-2023 11:27-0500 SaO2% (BldA) [Mass fraction] 96 % Andry Jean-Baptiste MD Work Phone: [facility] 04-28-2023 11:27-0500 Systolic blood pressure 132 mm[Hg] Andry Jean-Baptiste MD Work Phone: [facility] 04-16-2023 15:10-0500 Body height 176.1 cm Teri Gross MD Work Phone: [facility] 04-16-2023 15:10-0500 Body weight 83.92 kg Teri Gross MD Work Phone: [facility] 04-16-2023 15:10-0500 Diastolic blood pressure 68 mm[Hg] Teri Gross MD Work Phone: [facility] 04-16-2023 15:10-0500 Heart rate 92 /min Teri Gross MD Work Phone: [facility] 04-16-2023 15:10-0500 Respiratory rate 16 /min Teri Gross MD Work Phone: [facility] 04-16-2023 15:10-0500 SaO2% (BldA) [Mass fraction] 96 % Teri Gross MD Work Phone: [facility] 04-16-2023 15:10-0500 Systolic blood pressure 122 mm[Hg] Teri Gross MD Work Phone: [facility] 04-14-2023 07:37-0500 Body weight 85.28 kg Lew Bird SPECTROGRAPH OPERATOR.COUNTER CASER Work Phone: [facility] 04-14-2023 07:37-0500 Diastolic blood pressure 70 mm[Hg] Lew Bird SPECTROGRAPH OPERATOR.COUNTER CASER Work Phone: [facility] 04-14-2023 07:37-0500 Heart rate 92 /min Lew Bird SPECTROGRAPH OPERATOR.COUNTER CASER Work Phone: [facility] 04-14-2023 07:37-0500 Respiratory rate 16 /min Lew Bird SPECTROGRAPH OPERATOR.COUNTER CASER Work Phone: [facility] 04-14-2023 07:37-0500 Systolic blood pressure 126 mm[Hg] Lew Bird SPECTROGRAPH OPERATOR.COUNTER CASER Work Phone: [facility] 03-20-2023 12:33-0500 Heart rate 83 /min [facility] 03-20-2023 12:33-0500 Respiratory rate 16 /min [facility] 03-20-2023 12:33-0500 SaO2% (BldA) [Mass fraction] 95 % [facility] 03-20-2023 11:35-0500 Body height 177.8 cm [facility] 03-20-2023 11:35-0500 Body mass index (BMI) [Ratio] 26.9 kg/m2 [facility] 03-20-2023 11:35-0500 Body temperature 96.2 [degF] [facility] 03-20-2023 11:35-0500 Body weight 84.91 kg [facility] 03-20-2023 11:35-0500 Diastolic blood pressure 63 mm[Hg] [facility] 03-20-2023 11:35-0500 Systolic blood pressure 139 mm[Hg] [facility] 02-20-2023 14:04-0400 Body weight 84.37 kg Lew Bird SPECTROGRAPH OPERATOR.COUNTER CASER Work Phone: [facility] 02-20-2023 14:04-0400 Diastolic blood pressure 78 mm[Hg] Lew Bird SPECTROGRAPH OPERATOR.COUNTER CASER Work Phone: [facility] 02-20-2023 14:04-0400 Heart rate 72 /min Lew Bird SPECTROGRAPH OPERATOR.COUNTER CASER Work Phone: [facility] 02-20-2023 14:04-0400 Respiratory rate 16 /min Lew Bird APRN.COUNTER CASER Work Phone: [facility] 02-20-2023 14:04-0400 SaO2% (BldA) [Mass fraction] 97 % Lew Bird SPECTROGRAPH OPERATOR.COUNTER CASER Work Phone: [facility] 02-20-2023 14:04-0400 Systolic blood pressure 122 mm[Hg] Lew Bird SPECTROGRAPH OPERATOR.COUNTER CASER Work Phone: [facility] 02-16-2023 14:20-0400 Body temperature 97.11 [degF] Eulalia Wells SPECTROGRAPH OPERATOR.COUNTER CASER Work Phone: [facility] 02-16-2023 14:20-0400 Body weight 83.19 kg Eulalia Wells SPECTROGRAPH OPERATOR.COUNTER CASER Work Phone: [facility] 02-16-2023 14:20-0400 Diastolic blood pressure 72 mm[Hg] Eulalia Wells SPECTROGRAPH OPERATOR.COUNTER CASER Work Phone: [facility] 02-16-2023 14:20-0400 Heart rate 88 /min Eulalia Wells SPECTROGRAPH OPERATOR.COUNTER CASER Work Phone: [facility] 02-16-2023 14:20-0400 Respiratory rate 16 /min Eulalia Wells SPECTROGRAPH OPERATOR.COUNTER CASER Work Phone: [facility] 02-16-2023 14:20-0400 SaO2% (BldA) [Mass fraction] 96 % Eulalia Wells SPECTROGRAPH OPERATOR.COUNTER CASER Work Phone: [facility] 02-16-2023 14:20-0400 Systolic blood pressure 110 mm[Hg] Eulalia Wells SPECTROGRAPH OPERATOR.COUNTER CASER Work Phone: [facility] 02-09-2023 18:00-0400 Diastolic blood pressure 64 mm[Hg] [facility] 02-09-2023 18:00-0400 Heart rate 89 /min [facility] 02-09-2023 18:00-0400 Respiratory rate 22 /min [facility] 02-09-2023 18:00-0400 SaO2% (BldA) [Mass fraction] 93 % [facility] 02-09-2023 18:00-0400 Systolic blood pressure 128 mm[Hg] [facility] 02-09-2023 12:35-0400 Body temperature 97.9 [degF] [facility] 09-17-2022 11:44-0400 Diastolic blood pressure 70 mm[Hg] Gloria Haagen SPECTROGRAPH OPERATOR.COUNTER CASER Work Phone: [facility] 09-17-2022 11:44-0400 Heart rate 73 /min Gloria Haagen SPECTROGRAPH OPERATOR.COUNTER CASER Work Phone: [facility] 09-17-2022 11:44-0400 Respiratory rate 18 /min Gloria Chavez SPECTROGRAPH OPERATOR.COUNTER CASER Work Phone: [facility] 09-17-2022 11:44-0400 SaO2% (BldA) [Mass fraction] 93 % Gloria Chavez SPECTROGRAPH OPERATOR.COUNTER CASER Work Phone: [facility] 09-17-2022 11:44-0400 Systolic blood pressure 112 mm[Hg] Gloria Chavez SPECTROGRAPH OPERATOR.COUNTER CASER Work Phone: [facility] 09-05-2022 07:48-0400 Body temperature 97.3 [degF] Irma Perez PA-C Work Phone: [facility] 09-05-2022 07:48-0400 Body weight 82.1 kg Irma Perez PA-C Work Phone: [facility] 09-05-2022 07:48-0400 Diastolic blood pressure 60 mm[Hg] Irma Perez PA-C Work Phone: [facility] 09-05-2022 07:48-0400 Heart rate 76 /min Irma Perez PA-C Work Phone: [facility] 09-05-2022 07:48-0400 Respiratory rate 18 /min Irma Perez PA-C Work Phone: [facility] 09-05-2022 07:48-0400 Systolic blood pressure 120 mm[Hg] Irma Perez PA-C Work Phone: [facility] 09-02-2022 15:54-0400 Body temperature 97.8 [degF] Dr. Andry Jean-Baptiste Work Phone: [facility] 09-02-2022 15:54-0400 Diastolic blood pressure 54 mm[Hg] Dr. Andry Jean-Baptiste Work Phone: [facility] 09-02-2022 15:54-0400 Heart rate 75 /min Dr. Andry Jean-Baptiste Work Phone: [facility] 09-02-2022 15:54-0400 Respiratory rate 16 /min Dr. Andry Jean-Baptiste Work Phone: [facility] 09-02-2022 15:54-0400 SaO2% (BldA) [Mass fraction] 96 % Dr. Andry Jean-Baptiste Work Phone: [facility] 09-02-2022 15:54-0400 Systolic blood pressure 110 mm[Hg] Dr. Andry Jean-Baptiste Work Phone: [facility] 09-02-2022 13:09-0400 Body height 177.[address] Andry Jean-Baptiste Work Phone: [facility] 09-02-2022 13:09-0400 Body mass index (BMI) [Ratio] 25.9 kg/m2 Dr. Andry Jean-Baptiste Work Phone: [facility] 09-02-2022 13:09-0400 Body weight [address] Andry Jean-Baptiste Work Phone: [facility] 07-14-2022 09:00-0500 Body weight 84.82 kg Lew Bird APRN.COUNTER CASER Work Phone: [facility] 07-14-2022 09:00-0500 Diastolic blood pressure 60 mm[Hg] Lew Bird APRN.COUNTER CASER Work Phone: [facility] 07-14-2022 09:00-0500 Heart rate 80 /min Lew Bird APRN.COUNTER CASER Work Phone: [facility] 07-14-2022 09:00-0500 Respiratory rate 14 /min Lew Bird APRN.COUNTER CASER Work Phone: [facility] 07-14-2022 09:00-0500 Systolic blood pressure 118 mm[Hg] Lew Bird APRN.COUNTER CASER Work Phone: [facility] 05-26-2022 10:49-0500 Body height 178 cm Ronak Stauffer DO Work Phone: [facility] 05-26-2022 10:49-0500 Body temperature 97.5 [degF] Ronak Masci DO Work Phone: [facility] 05-26-2022 10:49-0500 Body weight 84.6 kg Ronak Masci DO Work Phone: [facility] 05-26-2022 10:49-0500 Diastolic blood pressure 53 mm[Hg] Ronak Masci DO Work Phone: [facility] 05-26-2022 10:49-0500 Heart rate 75 /min Ronak Masci DO Work Phone: [facility] 05-26-2022 10:49-0500 SaO2% (BldA) [Mass fraction] 98 % Ronak Masci DO Work Phone: [facility] 05-26-2022 10:49-0500 Systolic blood pressure 120 mm[Hg] Ronak Masci DO Work Phone: [facility] 05-15-2022 13:16-0500 Body temperature 96.6 [degF] Andry Jean-Baptiste MD Work Phone: [facility] 05-15-2022 13:16-0500 Body weight 81.65 kg Andry Jean-Baptiste MD Work Phone: [facility] 05-15-2022 13:16-0500 Diastolic blood pressure 70 mm[Hg] Andry Jean-Baptiste MD Work Phone: [facility] 05-15-2022 13:16-0500 Heart rate 97 /min Andry Jean-Baptiste MD Work Phone: [facility] 05-15-2022 13:16-0500 Respiratory rate 22 /min Andry Jean-Baptiste MD Work Phone: [facility] 05-15-2022 13:16-0500 SaO2% (BldA) [Mass fraction] 98 % Andry Jean-Baptiste MD Work Phone: [facility] 05-15-2022 13:16-0500 Systolic blood pressure 138 mm[Hg] Andry Jean-Baptiste MD Work Phone: [facility] 05-01-2022 14:34-0500 Body temperature 98.71 [degF] Radha Bishop APRN.COUNTER CASER Work Phone: [facility] 05-01-2022 14:34-0500 Body weight 81.1 kg Radhasydnee Bishop APRN.COUNTER CASER Work Phone: [facility] 05-01-2022 14:34-0500 Diastolic blood pressure 76 mm[Hg] Radha Bishop APRN.COUNTER CASER Work Phone: [facility] 05-01-2022 14:34-0500 Heart rate 93 /min Radha Bishop APRN.COUNTER CASER Work Phone: [facility] 05-01-2022 14:34-0500 Respiratory rate 18 /min Radha Bishop APRN.COUNTER CASER Work Phone: [facility] 05-01-2022 14:34-0500 SaO2% (BldA) [Mass fraction] 97 % Radha Bishop APRN.COUNTER CASER Work Phone: [facility] 05-01-2022 14:34-0500 Systolic blood pressure 124 mm[Hg] Radha Bishop APRN.COUNTER CASER Work Phone: [facility] 03-07-2022 07:54-0400 Body height 175.9 cm Andry Jean-Baptiste MD Work Phone: [facility] 03-07-2022 07:54-0400 Body weight 79.38 kg Andry Jean-Baptiste MD Work Phone: [facility] 03-07-2022 07:54-0400 Diastolic blood pressure 70 mm[Hg] Andry Jean-Baptiste MD Work Phone: [facility] 03-07-2022 07:54-0400 Heart rate 76 /min Andry Jean-Baptiste MD Work Phone: [facility] 03-07-2022 07:54-0400 Respiratory rate 16 /min Andry Jean-Baptiste MD Work Phone: [facility] 03-07-2022 07:54-0400 Systolic blood pressure 132 mm[Hg] Andry Jean-Baptiste MD Work Phone: [facility] 11-13-2021 09:23-0400 Body height 177 cm Angelica Zurita SPECTROGRAPH OPERATOR.COUNTER CASER Work Phone: [facility] 11-13-2021 09:23-0400 Body temperature 97 [degF] Angelica Zurita SPECTROGRAPH OPERATOR.COUNTER CASER Work Phone: [facility] 11-13-2021 09:23-0400 Body weight 79.61 kg Angelica Zurita SPECTROGRAPH OPERATOR.COUNTER CASER Work Phone: [facility] 11-13-2021 09:23-0400 Diastolic blood pressure 57 mm[Hg] Angelica Zurita SPECTROGRAPH OPERATOR.COUNTER CASER Work Phone: [facility] 11-13-2021 09:23-0400 Heart rate 70 /min Himrod Zurita SPECTROGRAPH OPERATOR.COUNTER CASER Work Phone: [facility] 11-13-2021 09:23-0400 SaO2% (BldA) [Mass fraction] 97 % Himrod Zurita SPECTROGRAPH OPERATOR.COUNTER CASER Work Phone: [facility] 11-13-2021 09:23-0400 Systolic blood pressure 120 mm[Hg] Angelica Zurita SPECTROGRAPH OPERATOR.COUNTER CASER Work Phone: [facility] 10-24-2021 10:40-0400 Body weight 79.83 kg Andry Jean-Baptiste MD Work Phone: [facility] 08-20-2016 13:32-0400 Heart rate 71 /min Harumi Isabel [facility] Work Phone: 08-20-2016 13:03-0400 BMI (Body Mass Index) 27.52 kg/m2 Ronak Barry MD [facility] Work Phone: 08-20-2016 13:03-0400 BP Diastolic 72 mm[Hg] Ronak Barry MD [facility] Work Phone: 08-20-2016 13:03-0400 BP Systolic 122 mm[Hg] Ronak Barry MD [facility] Work Phone: 08-20-2016 13:03-0400 Height 175.26 cm Ronak Barry MD [facility] Work Phone: 08-20-2016 13:03-0400 Pulse [...] cigarette smoker Start: 09-09-2024 End: 09-09-[address] [facility] Facility:[facility] Start: 09-08-2024 End: 09-08-2024 Orders Only Teri Gross MD Work Phone: Pulmonary Medicine Start: 09-07-2024 End: 09-09-2024 Telephone encounter Teri Gross MD Work Phone: Pulmonary Medicine Comment on above: Patient Update Start: 08-18-2024 End: 08-18-2024 Telephone encounter Andry Jean-Baptiste MD Work Phone: [facility] [place] Comment on above: scratch left lower a rm Start: 08-18-2024 End: 08-18-[address] [facility] Facility:[facility] Start: 08-18-2024 End: 08-18-2024 Office outpatient visit 15 minutes Jaimie Jett SPECTROGRAPH OPERATOR.COUNTER CASER Work Phone: [facility] [place] Comment on above: Contusion of right u pper arm, initial encounter (Primary Dx) Start: 07-20-2024 End: 07-20-2024 ambulatory ANDRY JEAN-BAPTISTE Facility:[facility] Start: 07-15-2024 End: 07-15-2024 Follow-up encounter Andry Jean-Baptiste MD Work Phone: [facility] [place] Start: 07-14-2024 End: 07-14-2024 Patient encounter procedure Teri Gross MD Work Phone: Pulmonary Medicine Comment on above: Asthma-COPD overlap syndrome (HCC) (Primary Dx); Lung nodules; Former cigarette smoker; Granulomatous disease (HCC) Start: 07-14-2024 End: 07-14-2024 ambulatory ANDRY JEAN-BAPTISTE Facility:[facility] Start: 07-10-2024 End: 07-10-2024 Emergency department patient visit Fredo Smiley Facility:[facility] Start: 07-05-2024 End: 07-05-2024 ambulatory AJIMIE JETT Facility:[facility] Start: 07-05-2024 End: 07-05-2024 Office outpatient visit 15 minutes Jaimie Jett SPECTROGRAPH OPERATOR.COUNTER CASER Work Phone: [facility] [place] Comment on above: Intractable chronic migraine without aura and without status migrainosus (Primary Dx); Asthma-COPD overlap syndrome (HCC); 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; Pulmonary emphysema, unspecified emphysema type (HCC); INDIA (obstructive sleep apnea); GERD without esophagitis; Migraine without aura, intractable, without status migrainosus Start: 07-04-2024 End: 07-04-2024 Follow-up encounter Lew Bird APRN.COUNTER CASER Work Phone: [facility] Start: 07-01-2024 End: 07-01-2024 Follow-up encounter Lew Bird APRN.COUNTER CASER Work Phone: [facility] [place] Start: 07-01-2024 End: 07-01-2024 Telephone encounter Andry Jean-Baptiste MD Work Phone: Family [facility] Comment on above: Future Appointment Start: 07-01-2024 End: 07-01-2024 Subsequent hospital visit by physician [facility] [place] Work Phone: Radiology Comment on above: Acute cough [R05.1] Start: 07-01-2024 End: 07-01-2024 Patient encounter procedure Lew Bird APRN.COUNTER CASER Work Phone: [facility] [place] Comment on above: Acute cough (Primary Dx); Wheezing Start: 07-01-2024 End: 07-01-2024 ambulatory ANDRY JEAN-BAPTISTE Facility:[facility] Start: 06-21-2024 End: 06-21-2024 ambulatory JAIMIE JETT Facility:[facility] Start: 06-21-2024 End: 06-21-2024 Office outpatient visit 15 minutes Jaimie Jett APRN.COUNTER CASER Work Phone: [facility] [place] Comment on above: Pneumonia of right u pper lobe due to infectious organism (Primary Dx) Start: 06-17-2024 End: 06-17-2024 ambulatory MARIA DE JESUS OSWALD Facility:[facility] Start: 06-17-2024 End: 06-17-2024 Subsequent hospital visit by physician [facility] Work Phone: Cat [facility] Comment on above: Lung nodules [R91.8] Start: 06-15-2024 End: 06-15-2024 Patient encounter procedure Andry Jean-Baptiste MD Work Phone: [facility] [place] Comment on above: Encounter for Medica re annual wellness exam (Primary Dx); Mixed hyperlipidemia; Elevated fasting blood sugar; GERD without esophagitis; 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; Bilateral carotid artery disease, unspecified type (HCC); Intractable chronic migraine without aura and without status migrainosus; Pulmonary emphysema, unspecified emphysema type (HCC); Iron deficiency anemia secondary to inadequate dietary iron intake; Primary insomnia; Vitamin D deficiency; Low zinc level; Advance directive discussed with patient; Need for vaccination Start: 06-15-2024 End: 06-15-2024 ambulatory ANDRY JEAN-BAPTISTE Facility:[facility] Start: 05-24-2024 End: 05-24-2024 Refill Irma Perez PA-C Work Phone: [facility] [place] Comment on above: Refill Request Start: 05-23-2024 End: 05-23-2024 ambulatory ANDRY JEAN-BAPTISTE Facility:[facility] Start: 05-19-2024 End: 05-19-2024 Patient encounter procedure Srinath Summers Work Phone: Podiatry Comment on above: Plantar fasciitis (P rimary Dx) Start: 05-19-2024 End: 05-19-2024 ambulatory Andry Jean-Baptiste MD Work Phone: [facility] [place] Comment on above: Script Start: 05-19-2024 End: 05-19-2024 Subsequent hospital visit by physician [facility] [place] Johnson Work Phone: Radiology Comment on above: Pain [R52] Start: 05-17-2024 End: 05-17-2024 Telephone encounter Teri Gross MD Work Phone: Pulmonary Medicine Comment on above: Orders Start: 05-12-2024 End: 05-13-2024 Refill Lew Bird APRN.COUNTER CASER Work Phone: [facility] [place] Comment on above: Refill Request Start: 04-06-2024 End: 04-06-2024 ambulatory ANDRYGERARD JEAN-BAPTISTE Facility:[facility] Start: 04-06-2024 End: 04-06-2024 Patient encounter procedure Andry Jean-Baptiste MD Work Phone: [facility] [place] Comment on above: Nocturnal leg cramps (Primary Dx); Encounter for immunization Start: 04-04-2024 End: 04-04-2024 ambulatory Elo Simpson RN Regulatory And Compliance Technician Management Comment on above: ACAlfonzo KHOURY RN ( No action needed.) Start: 03-30-2024 End: 03-30-2024 Chart abstracting Andry Jean-Baptiste MD Work Phone: [facility] Comment on above: ER Discharge Summary Start: 03-29-2024 End: 03-29-2024 Emergency department patient visit Andry Jean-Baptiste Facility:[facility] Start: 02-15-2024 End: 02-15-2024 Refill Lew Bird SPECTROGRAPH OPERATOR.COUNTER CASER Work Phone: [facility] Comment on above: Refill Request Start: 01-18-2024 End: 01-19-2024 Refill Teri Gross MD Work Phone: Pulmonary Medicine Comment on above: Refill Request Start: 01-14-2024 End: 01-14-2024 Refill Irma Perez PA-C Work Phone: [facility] [place] Comment on above: Refill Request Start: 12-08-2023 End: 12-08-2023 ambulatory ANDRY JEAN-BAPTISTE Facility:[facility] Start: 12-08-2023 End: 12-08-2023 Patient encounter procedure Irma Perez PA-C Work Phone: [facility] [place] Comment on above: Mixed hyperlipidemia (Primary Dx); Screening for depression; Encounter for screening examination for other mental health and behavioral disorders; 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; INDIA (obstructive sleep apnea); Pulmonary emphysema, unspecified emphysema type (HCC); Iron deficiency anemia secondary to inadequate dietary iron intake; Elevated fasting blood sugar; Primary insomnia; Chronic post-traumatic headache, not intractable; Vitamin D deficiency; History of gastric bypass; Medication management; Malabsorption syndrome; GERD without esophagitis; Bilateral carotid artery disease, unspecified type (HCC); Prostate disorder Start: 11-27-2023 End: 11-27-2023 [facility] ANDRY JEAN-BAPTISTE Facility:[facility] Start: 10-22-2023 Chart abstracting Andry lima MD Work Phone: [facility] [place] Comment on above: Ext / [facility] Start: 10-20-2023 End: 10-20-2023 [facility] Andry Jean-Baptiste Facility:[facility] Start: 10-14-2023 End: 10-14-2023 ambulatory ANDRY JEAN-BAPTISTE Facility:[facility] Start: 10-14-2023 End: 10-14-2023 Patient encounter procedure Maria De Jesus Oswald PA-C Work Phone: Pulmonary Medicine Comment on above: Asthma-COPD overlap syndrome (HCC) (Primary Dx); Lung nodules; Granulomatous disease (HCC); Former cigarette smoker Start: 10-02-2023 End: 10-02-2023 Patient encounter procedure Andry Jean-Baptiste MD Work Phone: [facility] Comment on above: COPD exacerbation (H CC) (Primary Dx); Pulmonary emphysema, unspecified emphysema type (HCC); Angular cheilitis Start: 10-02-2023 End: 10-02-[address] [facility] Facility:[facility] Start: 09-21-2023 Telephone encounter Lew santiago APRN.COUNTER CASER Work Phone: [facility] [place] Comment on above: Results Start: 09-20-2023 ambulatory [facility] Facility :[facility] Start: 09-20-2023 End: 09-23-2023 [facility] Work Phone: Start: 09-18-2023 End: 09-18-2023 Subsequent hospital visit by physician Xr [facility] Work Phone: Radiology Comment on above: URI, acute [J06.9] Start: 09-18-2023 End: 09-18-2023 [facility] Facility:[facility] Start: 09-18-2023 End: 09-18-2023 Patient encounter procedure Lew Bird APRN.COUNTER CASER Work Phone: [facility] [place] Comment on above: URI, acute (Primary Dx); Chronic obstructive pulmonary disease, unspecified COPD type (HCC) Start: 09-08-2023 Refill Teri Gross MD Work Phone: Pulmonary Medicine Comment on above: Refill Request Start: 08-16-2023 Refill Irma Moreno on PA-C Work Phone: [facility] [place] Comment on above: Refill Request Start: 07-23-2023 End: 07-23-2023 Patient encounter procedure Teri Gross MD Work Phone: Pulmonary Medicine Comment on above: Asthma-COPD overlap syndrome (HCC) (Primary Dx); Lung nodules; Granulomatous disease (HCC); Former cigarette smoker Start: 06-22-2023 Telephone encounter Teri Gross MD Work Phone: Pulmonary Medicine Comment on above: Results Start: 06-17-2023 Telephone encounter Teri Gross MD Work Phone: [facility] Adult Comment on above: Results (Chest CT) Results Start: 06-16-2023 End: 06-16-2023 Subsequent hospital visit by physician [facility] Work Phone: Cat Scan Start: 06-10-2023 End: 06-10-2023 ambulatory [facility] Work Phone: Start: 06-10-2023 End: 06-10-2023 Patient encounter procedure [facility] Work Phone: Start: 06-08-[address] (I-Stat) Work Phone: [facility] Work Phone: Start: 05-18-2023 End: 05-18-2023 Emergency department patient visit [facility] Work Phone: Start: 04-30-2023 Telephone encounter Andry Jean-Baptiste MD Work Phone: [facility] Comment on above: Results Start: 04-28-2023 End: 04-28-2023 Subsequent hospital visit by physician Xr [facility] Work Phone: Radiology Comment on above: URI, acute [J06.9] Start: 04-28-2023 End: 04-28-2023 Patient encounter procedure Andry Jean-Baptiste MD Work Phone: [facility] [place] Comment on above: URI, acute (Primary Dx); SOB (shortness of breath); Epigastric pain; Left-sided chest pain Start: 04-16-2023 End: 04-16-2023 ambulatory [facility] Work Phone: [facility] Comment on above: Spirometry Start: 04-16-2023 End: 04-16-2023 [facility] Work Phone: [facility] Comment on above: Asthma-COPD overlap syndrome (Primary Dx); Former cigarette smoker; Ground glass opacity present on imaging of lung Start: 04-14-2023 End: 04-14-2023 Patient encounter procedure Lew Bird APRN.COUNTER CASER Work Phone: [facility] Comment on above: Chronic obstructive pulmonary disease, unspecified COPD type (HCC) (Primary Dx); Encounter for immunization Start: 03-20-2023 Telephone encounter Andry Jean-Baptiste MD Work Phone: [facility] Comment on above: Patient Update Start: 03-20-2023 End: 03-20-2023 [facility] Work Phone: Start: 03-13-2023 ambulatory Andry galvez MD Work Phone: [facility] Comment on above: re: Covid Start: 03-13-2023 Telephone encounter Carisa moreno PA-C Work Phone: [facility] Comment on above: Erroneous encounter- disregard Start: 03-12-2023 End: 03-12-2023 Subsequent hospital visit by physician Xr [facility] Work Phone: Radiology Comment on above: Acute cough [R05.1] Start: 02-20-2023 End: 02-20-2023 Patient encounter procedure Lew Bird APRN.COUNTER CASER Work Phone: [facility] [place] Comment on above: Community acquired p neumonia, unspecified laterality (Primary Dx); Pulmonary emphysema, unspecified emphysema type (HCC) Start: 02-16-2023 End: 02-16-2023 Patient encounter procedure Eulalia Wells APRN.COUNTER CASER Work Phone: [facility] Comment on above: Pneumonia of right l arun due to infectious organism, unspecified part of lung (Primary Dx) Start: 02-09-2023 End: 02-09-2023 [facility] Work Phone: Start: 01-27-2023 Refill Andry galvez MD Work Phone: [facility] Comment on above: Refill Request Start: 10-04-2022 End: 10-04-[address] Andry Jean-Baptiste Work Phone: [facility] Work Phone: Start: 10-04-2022 End: 10-04-[address] Andry Jean-Baptiste Work Phone: [facility]Labor[facility], Specimen Start: 09-24-2022 End: 09-24-[address] Andry Jean-Baptiste Work Phone: [facility] Start: 09-23-2022 End: 09-23-[address] Andry Jean-Baptiste Work Phone: [facility] Start: 09-17-2022 End: 09-17-2022 Office outpatient visit 15 minutes Gloria Chavez APRN.COUNTER CASER Work Phone: [facility] [place] Comment on above: Eczema, unspecified type (Primary Dx) Start: 09-05-2022 End: 09-05-2022 Patient encounter procedure Irma Perez PA-C Work Phone: [facility] Comment on above: Mixed hyperlipidemia (Primary Dx); 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; Pulmonary emphysema, unspecified emphysema type (HCC); INDIA (obstructive sleep apnea); GERD without esophagitis; Elevated fasting blood sugar; Bilateral carotid artery disease, unspecified type (HCC); Vitamin D deficiency; History of gastric bypass; Prostate disorder; Medication management Start: 09-02-2022 Non-patient / Non-visit Dr. Jovi Jean-Baptiste Work Phone: [facility] Start: 09-02-2022 End: 09-02-2022 Admission to same day surgery center Dr. Andry Jean-Baptiste Work Phone: [facility] Start: 07-14-2022 End: 07-14-2022 Patient encounter procedure Lew Bird APRN.COUNTER CASER Work Phone: [facility] [place] Comment on above: Oral polyp (Primary Dx) Start: 06-27-2022 End: 06-27-[address] And[facility]aptiste [facility] Start: 06-23-2022 Telephone encounter Andry Jean-Baptiste MD Work Phone: [facility] [place] Comment on above: Consult Start: 05-26-2022 End: 05-26-2022 ambulatory Ronak Stauffer DO Work Phone: Hematology/Oncology Comment on above: Iron deficiency anem ia secondary to inadequate dietary iron intake (Primary Dx) Start: 05-26-2022 End: 05-26-2022 Patient encounter procedure Ronak Stauffer DO Work Phone: [facility] Start: 05-23-2022 Orders Only Ronak Reed Work Phone: Hematology/Oncology Comment on above: Iron deficiency anem ia secondary to inadequate dietary iron intake (Primary Dx); Malabsorption syndrome Start: 05-16-2022 Orders Only Ronak Reed Work Phone: Hematology/Oncology Comment on above: Iron deficiency anem ia secondary to inadequate dietary iron intake (Primary Dx) Start: 05-15-2022 End: 05-15-2022 Patient encounter procedure Andry Jean-Baptiste MD Work Phone: [facility] [place] Comment on above: Bronchitis (Primary Dx); Advance directive discussed with patient; Pulmonary emphysema, unspecified emphysema type (HCC) Start: 05-02-2022 ambulatory nAdry galvez MD Work Phone: [facility] [place] Comment on above: Test result Start: 05-01-2022 End: 05-01-2022 Patient encounter procedure Radha Bishop APRN.CNP Work Phone: [facility] Comment on above: URI, acute [...] encounter procedure Andry Jean-Baptiste MD Work Phone: [facility] [place] Comment on above: Medicare annual well ness visit, initial (Primary Dx); Mixed hyperlipidemia; 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; Intractable chronic migraine [...] 01-27-2022 Refill Andry galvez MD Work Phone: [facility] [place] Comment on above: Refill Request Start: 11-14-2021 ambulatory Angelica davis SPECTROGRAPH OPERATOR.COUNTER CASER Work Phone: Hematology/Oncology Comment on above: Iron Start: 11-13-2021 End: 11-13-2021 ambulatory Angelica Zurita APRN.COUNTER CASER Work Phone: Hematology/Oncology Comment on above: Iron deficiency anem ia secondary to inadequate dietary iron intake (Primary Dx); Malabsorption syndrome Start: 11-13-2021 End: 11-13-2021 Patient encounter procedure Angelica Zurita APRN.COUNTER CASER Work Phone: [facility] Start: 10-29-2021 Chart abstracting Andry lima MD Work Phone: [facility] [place] Comment on above: Heart Catheterizatio n Follow Up Start: 10-28-2021 Telephone encounter Andry Jean-Baptiste MD Work Phone: [facility] [place] Comment on above: Results Start: 10-24-2021 Telephone encounter Brigitte Bishop MA [facility] Comment on above: Appointment Start: 10-24-2021 End: 10-24-2021 Subsequent hospital visit by physician X[facility] Work Phone: Radiology Comment on above: Left-sided chest wal l pain [R07.89] Start: 10-24-2021 End: 10-24-2021 Patient encounter procedure Andry Jea-nBaptiste MD Work Phone: [facility] [place] Comment on above: Coronary artery dise ase involving 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 pectoris (Primary Dx); Exertional chest pain; Left hand pain; Left-sided chest wall pain Start: 10-17-2021 ambulatory Andry galvez MD Work Phone: [facility] Start: 10-17-2021 Patient encounter procedure Andry Jean-Baptiste MD Work Phone: [facility] [place] Comment on above: Upcoming appointment Start: 09-04-2021 Telephone encounter Andry Jean-Baptiste MD Work Phone: [facility] [place] Comment on above: Results Start: 09-03-2021 Get Medical Advice Andry Jean-Baptiste MD Work Phone: [facility] [place] Comment on above: Medication refill Start: 03-04-2021 Patient encounter procedure Andry Jean-Baptiste MD Work Phone: [facility] Work Phone: Start: 01-01-2017 End: 04-16-2017 [facility] Procedures Date Procedure Procedure Detail Performing Clinician Start: 07-01-2024 Radiologic exam ches t 2 views Lew Bird SPECTROGRAPH OPERATOR.COUNTER CASER Work Phone: Start: 05-23-2024 Lipid 1996 panel - S deshaun or Plasma Irma Perez PA-C Work Phone: Start: 12-08-2023 Adult depression scr eening assessment Irma Perez PA-C Work Phone: Start: 11-27-2023 Lipid 1996 panel - S deshaun or Plasma Irma Perez PA-C Work Phone: Start: 09-20-2023 Plain chest X-ray Start: 09-18-2023 Radiologic exam ches t 2 views Lew Bird APRN.COUNTER CASER Work Phone: Start: 09-18-2023 Ecg routine ecg [...] HIGH DOSE, QUADRIVALENT (FLUZONE HIGH-DOSE) Lew Bird APRN.COUNTER CASER Work Phone: Start: 03-20-2023 Plain chest X-ray Start: 03-12-2023 Radiologic exam ches t 2 views Domingo Valencia SPECTROGRAPH OPERATOR.COUNTER CASER Work Phone: Start: 03-09-2023 Lipid 1995 panel - S deshaun or Plasma Carisa Kumar PA-C Work Phone: Start: 02-09-2023 Plain chest X-ray Start: 02-09-2023 Computed tomography of abdomen and pelvis with intravenous contrast Start: 02-09-2023 CT of head without contrast Start: 09-23-2022 CT of chest and abdomen Dr. Andry Jean-Baptiste Work Phone: Start: 08-29-2022 Lipid 1996 panel - S deshaun or Plasma Andry Jean-aBptiste MD Work Phone: Start: 05-01-2022 COVID WITH FLUA+B, ROUTINE Radha James SPECTROGRAPH OPERATOR.COUNTER CASER Work Phone: Start: 03-07-2022 INFLUENZA SEASONAL QUADRIVALENT HIGH DOSE AGE 65+ Andry Jean-Baptiste MD Work Phone: Start: 11-10-2021 Adult depression scr eening assessment Angelica Zurita SPECTROGRAPH OPERATOR.COUNTER CASER Work Phone: Start: 10-24-2021 Radex ribs uni [...] DTaP,Tdap,Td Vaccine (4 - Td or Tdap) [facility] Start: 06-10-2033 Urine microalbumin profile DTaP,Tdap,Td Vaccine (3 - Td or Tdap) [facility] Start: 10-23-2030 Colonoscopy COLONOSCOPY [facility] Start: 10-23-2030 COLORECTAL CANCER SCREENING COLORECTAL CANCER SCREENING [facility] Start: 10-23-2030 Screening for malign ant neoplasm of colon [facility] Start: 05-23-2029 Lipid panel Lipid Screening [facility] Start: 11-26-2028 Lipid panel Lipid Screening [facility] Start: 03-09-2028 Lipid 1996 panel - Serum or Plasma Lipid Screening [facility] Start: 03-09-2028 Lipid panel Lipid Screening [facility] Start: 03-09-2028 Prostate Cancer Screening Discussion Prostate Cancer Screening Discussion [facility] Start: 03-09-2028 Prostate specific antigen measurement Prostate Cancer Screening Discussion [facility] Start: 08-30-2027 Lipid 1996 panel - Serum or Plasma Lipid Screening [facility] Start: 08-30-2027 LIPID SCREEN LIPID SCREEN [facility] Start: 05-23-2027 Diabetes Screening Diabetes Screenin [facility] Start: 03-05-2027 LIPID SCREEN LIPID SCREEN [facility] Start: 03-05-2027 PROSTATE CANCER SCREENING DISCUSSION PROSTATE CANCER SCREENING DISCUSSION [facility] Start: 11-26-2026 Diabetes Screening Diabetes Screenin g [facility] Start: 08-28-2026 LIPID SCREEN LIPID SCREEN [facility] Start: 03-09-2026 Diabetes Screening Diabetes Screenin g [facility] Start: 03-01-2026 PROSTATE CANCER SCREENING DISCUSSION PROSTATE CANCER SCREENING DISCUSSION [facility] Start: 08-29-2025 DIABETES SCREEN DIABETES SCREEN [facility] Start: 08-29-2025 Diabetes Screening Diabetes Screenin g [facility] Start: 08-18-2025 Annual PCP Team Neon Technician dewayne Disease Visit Annual PCP Team Chronic Disease Visit [facility] Start: 07-21-2025 End: 07-21-2025 Patient encounter procedure 07/21/2025 8:40 AM EDT Appointment Cat Scan [address] [place] [address] Cat Scan Comment on above: CHEST CT Start: 07-05-2025 Annual PCP Team Neon Technician dewayne Disease Visit Annual PCP Team Chronic Disease Visit [facility] Start: 07-01-2025 Annual PCP Team Neon Technician dewayne Disease Visit Annual PCP Team Chronic Disease Visit [facility] Start: 06-21-2025 Annual PCP Team Neon Technician dewayne Disease Visit Annual PCP Team Chronic Disease Visit [facility] Start: 06-19-2025 End: 08-13-2025 CT Chest WO contrast CT CHEST WO IVCON Radiology Routine Lung nodules Former cigarette smoker Expected: 06/19/2025, Expires: 08/13/2025 [facility] Work Phone: Comment on above: Expected: 06/19/2025 , Expires: 08/13/2025 Start: 06-15-2025 Annual PCP Team Neon Technician dewayne Disease Visit Annual PCP Team Chronic Disease Visit [facility] Start: 05-23-2025 Hepatitis B surface antibody level LDL Cholesterol [facility] Start: 04-06-2025 Annual PCP Team Neon Technician dewayne Disease Visit Annual PCP Team Chronic Disease Visit [facility] Start: 03-05-2025 DIABETES SCREEN DIABETES SCREEN [facility] Start: 01-17-2025 End: 01-17-2025 Patient encounter procedure Pulmonary Medicine Comment on above: 6 MTH F/U COPD Start: 12-13-2024 End: 12-13-2024 Patient encounter procedure 12/13/2024 9:00 AM EDT Office Visit [facility] [place] [address] [place] [address] Lew Bird, SPECTROGRAPH OPERATOR.COUNTER CASER [address] [place] [address] 6 month follow up [facility] [place] Comment on above: 6 month follow up Start: 12-07-2024 Annual PCP Team Neon Technician dewayne Disease Visit Annual PCP Team Chronic Disease Visit [facility] Start: 12-07-2024 Anxiety Screening Anxiety Screening [facility] Start: 12-07-2024 Depression Screening Depression Scre ening [facility] Start: 12-02-2024 End: 03-03-2025 Hemoglobin A1c in Blood HEMOGLOBIN A1C Lab Routine Elevated fasting blood sugar Expected: 12/02/2024, Expires: 03/03/2025 [facility] Comment on above: Expected: 12/02/2024 , Expires: 03/03/2025 Start: 12-02-2024 End: 03-03-2025 LIPID PANEL, NONFASTING LIPID PANEL, NONFASTING Lab Routine Mixed hyperlipidemia 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 Bilateral carotid artery disease, unspecified type (HCC) Expected: 12/02/2024, Expires: 03/03/2025 [facility] Comment on above: Expected: 12/02/2024 , Expires: 03/03/2025 Start: 11-26-2024 Hepatitis B surface antibody level LDL Cholesterol [facility] Start: 11-07-2024 Influenza vaccination Influenza Vacc ine (#1) [facility] Comment on above: Postponed from 01/09 (Declined at this time) Start: 10-01-2024 Annual PCP Team Neon Technician dewayne Disease Visit Annual PCP Team Chronic Disease Visit [facility] Start: 09-17-2024 Annual PCP Team Neon Technician dewayne Disease Visit Annual PCP Team Chronic Disease Visit [facility] Start: 09-09-2024 End: 09-09-2024 Patient encounter procedure 09/09/2024 10:30 AM EDT Office Visit Pulmonary Medicine [address] [place] [address] Teri Gross MD [address] [place] [address] COPD flare up Pulmonary Medicine Comment on above: COPD flare up Start: 08-28-2024 DIABETES SCREEN DIABETES SCREEN [facility] Start: 07-20-2024 End: 07-20-2024 Patient encounter procedure 07/20/2024 9:00 AM EDT Office Visit Vas[facility] [address] [place] [address] Bilateral carotid artery disease, unspecified type (HCC) [I77.9] [facility] Comment on above: Bilateral carotid ar amy disease, unspecified type (HCC) [I77.9] Start: 07-14-2024 End: 07-14-2024 Patient encounter procedure 07/14/2024 10:00 AM EST Office Visit Pulmonary Medicine [address] [place] [address] Teri Gross MD [address] [place] [address] 9 MTH F/U LUNG NODULES [facility] Comment on above: 9 MTH F/U LUNG NODUL ES Start: 07-13-2024 End: 10-12-2024 Zinc [Mass/volume] in Serum or Plasma ZINC BLD Lab Routine Low zinc level Expected: 07/13/2024, Expires: 10/12/2024 [facility] Comment on above: Expected: 07/13/2024 , Expires: 10/12/2024 Start: 07-05-2024 End: 07-05-2024 Patient encounter procedure [facility] [place] Comment on above: 2 wk follow up; james mitchell Start: 06-23-2024 End: 06-23-2024 Patient encounter procedure 06/23/2024 3:30 PM EST Office Visit [facility] [address] [place] [address] Bilateral carotid artery disease, unspecified type (HCC) [I77.9] [facility] Comment on above: Bilateral carotid ar amy disease, unspecified type (HCC) [I77.9] Start: 06-20-2024 End: 06-16-2025 CT Chest WO contrast [facility] Routine Lung nodules Expected: 06/20/2024, Expires: 06/16/2025 [facility] Work Phone: Comment on above: Expected: 06/20/2024 , Expires: 06/16/2025 Start: 06-17-2024 End: 06-17-2024 Patient encounter procedure 06/17/2024 9:00 AM EST Appointment Cat Scan [address] [place], [place] [id number] CT CHEST Cat Scan Comment on above: CT CHEST Start: 06-15-2024 End: 06-15-2024 Patient encounter procedure 06/15/2024 9:40 AM EST Office Visit [facility] [place] [address] [place], [place] [id number] Andry Jean-Baptiste MD [address] [facility] [place] [address] medicare wellness [facility] [place] Comment on above: medicare wellness Start: 06-13-2024 End: 11-12-2024 CT Chest WO contrast CT CHEST WO IVCON Radiology Routine Lung nodules Expected: 06/13/2024, Expires: 11/12/2024 [facility] Work Phone: Comment on above: Expected: 06/13/2024 , Expires: 11/12/2024 Start: 06-08-2024 Annual PCP Team Neon Technician dewayne Disease Visit Annual PCP Team Chronic Disease Visit [facility] Start: 06-08-2024 Shingrix Vaccine (1 of 2) Shingrix Vaccine (1 of 2) [facility] Comment on above: Postponed from 11/15 (Insurance Coverage) Start: 05-23-2024 End: 08-22-2024 25-hydroxyvitamin D3 [Mass/volume] in Serum or Plasma VITAMIN D 25 HYDROXY Lab Routine History of gastric bypass Malabsorption syndrome Expected: 05/23/2024, Expires: 08/22/2024 [facility] Comment on above: Expected: 05/23/2024 , Expires: 08/22/2024 Start: 05-23-2024 End: 08-22-2024 CBC W Auto Differential panel - Blood COMPLETE BLOOD COUNT AND DIFFERENTIAL Lab Routine Elevated fasting blood sugar Expected: 05/23/2024, Expires: 08/22/2024 [facility] Comment on above: Expected: 05/23/2024 , Expires: 08/22/2024 Start: 05-23-2024 End: 08-22-2024 Cobalamin (Vitamin B12) [Mass/volume] in Serum or Plasma VITAMIN B12 Lab Routine History of gastric bypass Malabsorption syndrome Expected: 05/23/2024, Expires: 08/22/2024 [facility] Comment on above: Expected: 05/23/2024 , Expires: 08/22/2024 Start: 05-23-2024 End: 08-22-2024 Comprehensive metabolic 2000 panel - Serum or Plasma COMPREHENSIVE METABOLIC PANEL Lab Routine Elevated fasting blood sugar Expected: 05/23/2024, Expires: 08/22/2024 [facility] Comment on above: Expected: 05/23/2024 , Expires: 08/22/2024 Start: 05-23-2024 End: 08-22-2024 Ferritin [Mass/volume] in Serum or Plasma FERRITIN Lab Routine History of gastric bypass Malabsorption syndrome Expected: 05/23/2024, Expires: 08/22/2024 [facility] Comment on above: Expected: 05/23/2024 , Expires: 08/22/2024 Start: 05-23-2024 End: 08-22-2024 Folate [Mass/volume] in Serum or Plasma FOLATE, SERUM Lab Routine History of gastric bypass Malabsorption syndrome Expected: 05/23/2024, Expires: 08/22/2024 [facility] Comment on above: Expected: 05/23/2024 , Expires: 08/22/2024 Start: 05-23-2024 End: 08-22-2024 Hemoglobin A1c in Blood HEMOGLOBIN A1C Lab Routine Elevated fasting blood sugar Expected: 05/23/2024, Expires: 08/22/2024 [facility] Work Phone: Comment on above: Expected: 05/23/2024 , Expires: 08/22/2024 Start: 05-23-2024 End: 08-22-2024 Iron and Iron binding capacity panel - Serum or Plasma IRON AND TIBC Lab Routine History of gastric bypass Malabsorption syndrome Expected: 05/23/2024, Expires: 08/22/2024 [facility] Comment on above: Expected: 05/23/2024 , Expires: 08/22/2024 Start: 05-23-2024 End: 08-22-2024 LIPID PANEL, NONFASTING LIPID PANEL, NONFASTING Lab Routine Mixed hyperlipidemia Expected: 05/23/2024, Expires: 08/22/2024 [facility] Comment on above: Expected: 05/23/2024 , Expires: 08/22/2024 Start: 05-23-2024 End: 08-22-2024 Prostate specific Ag [Mass/volume] in Serum or Plasma PROSTATE-SPECIFIC ANTIGEN DIAGNOSTIC Lab Routine Prostate disorder Expected: 05/23/2024, Expires: 08/22/2024 [facility] Comment on above: Expected: 05/23/2024 , Expires: 08/22/2024 Start: 05-23-2024 End: 08-22-2024 Retinol [Mass/volume] in Serum or Plasma VITAMIN A/RETINOL Lab Routine History of gastric bypass Malabsorption syndrome Expected: 05/23/2024, Expires: 08/22/2024 [facility] Comment on above: Expected: 05/23/2024 , Expires: 08/22/2024 Start: 05-23-2024 End: 08-22-2024 Urinalysis complete panel - Urine URINALYSIS, WITH MICROSCOPIC Lab Routine Elevated fasting blood sugar Expected: 05/23/2024, Expires: 08/22/2024 [facility] Comment on above: Expected: 05/23/2024 , Expires: 08/22/2024 Start: 05-23-2024 End: 08-22-2024 Zinc [Mass/volume] in Serum or Plasma ZINC BLD Lab Routine History of gastric bypass Malabsorption syndrome Expected: 05/23/2024, Expires: 08/22/2024 [facility] Comment on above: Expected: 05/23/2024 , Expires: 08/22/2024 Start: 05-23-2024 End: 05-23-2024 ambulatory 05/23/2024 8:00 AM EST Results Only [facility] Laboratory [address] [place] [address] [place] [facility] Start: 05-19-2024 End: 05-19-2024 Patient encounter procedure Radiology Comment on above: LEFT FOOT LEFT FOOT PAIN Start: 05-11-2024 Advance Directive Discussion Advance Directive Discussion [facility] Start: 04-28-2024 Annual PCP Team Neon Technician dewayne Disease Visit Annual PCP Team Chronic Disease Visit [facility] Start: 04-14-2024 Annual PCP Team Neon Technician dewayne Disease Visit Annual PCP Team Chronic Disease Visit [facility] Start: 04-14-2024 Covid-19 Vaccine () Covid-19 Vaccine () [facility] Comment on above: Postponed from 01/09 (Declined at this time) Start: 04-06-2024 End: 04-06-2024 Patient encounter procedure 04/06/2024 11:20 AM EST Office Visit [facility] [place] [address] [place] [address] Andry Jean-Baptiste MD [address] [place] [address] [facility] f/u muscle cramps both legs [facility] [place] Comment on above: [facility] f/u muscl e cramps both legs Start: 03-09-2024 Hepatitis B surface antibody level LDL Cholesterol [facility] Start: 02-21-2024 Annual PCP Team Neon Technician dewayne Disease Visit Annual PCP Team Chronic Disease Visit [facility] Start: 01-27-2024 End: 01-27-2024 Patient encounter procedure 01/27/2024 2:00 PM EDT Office Visit Pulmonary Medicine [address] [place] [address] Maria De Jesus Oswald PA-C [address] [place] [address] 6 MTH F/U Pulmonary Medicine Comment on above: 6 MTH F/U Start: 01-10-2024 Covid-19 Vaccine ( season) Covid-19 Vaccine ( season) [facility] Start: 01-10-2024 Covid-19 Vaccine ( season) Covid-19 Vaccine ( season) [facility] Start: 01-10-2024 Influenza vaccination Influenza Vacc ine (#1) [facility] Start: 12-07-2023 End: 12-07-2023 Patient encounter procedure 12/07/2023 8:20 AM EDT Office Visit [facility] [place] [address] [place] [place] [address] Irma Perez PA-C [address] [place], [place] [id number] 6 month follow up [facility] [place] Comment on above: 6 month follow up Start: 11-27-2023 End: 11-27-2023 ambulatory 11/27/2023 8:30 AM EDT Results Only [place] [facility] Laboratory [address] [place] [address] [place] [facility] Start: 09-20-2023 Taking nasal swab [facility] Start: 09-20-2023 Verification routine [facility] Start: 09-20-2023 Hospital admission, emergency, from emergency room, medical nature [facility] Start: 09-20-2023 Admission procedure [facility] Start: 09-20-2023 Bacteria identified in Blood by Culture Blood Culture [facility] Start: 09-20-2023 Microscopic observat ion [Identifier] in Unspecified specimen by Gram stain [facility] Start: 09-20-2023 Respiratory Culture Respiratory Cult ure [facility] Start: 09-20-2023 Blood culture [facility] Start: 09-20-2023 [facility] Start: 09-18-2023 ANNUAL PCP TEAM MANUFACTURER REPRESENTATIVE DEWAYNE DISEASE VISIT ANNUAL PCP TEAM CHRONIC DISEASE VISIT [facility] Start: 09-06-2023 ANNUAL PCP TEAM MANUFACTURER REPRESENTATIVE DEWAYNE DISEASE VISIT ANNUAL PCP TEAM CHRONIC DISEASE VISIT [facility] Start: 08-30-2023 Hepatitis B surface antibody level LDL CHOLESTEROL [facility] Start: 08-21-2023 Shingrix Vaccine (2 of 2) Shingrix Vaccine (2 of 2) [facility] Start: 07-15-2023 ANNUAL PCP TEAM MANUFACTURER REPRESENTATIVE DEWAYNE DISEASE VISIT ANNUAL PCP TEAM CHRONIC DISEASE VISIT [facility] Start: 06-15-2023 End: 05-15-2024 Ct thorax w/o contrast material CT CHEST WO IVCON Radiology Routine Expected: 06/15/2023, Expires: 05/15/2024 [facility] Work Phone: Comment on above: Expected: 06/15/2023 , Expires: 05/15/2024 Start: 05-18-2023 [facility] Start: 05-15-2023 ANNUAL PCP TEAM MANUFACTURER REPRESENTATIVE DEWAYNE DISEASE VISIT ANNUAL PCP TEAM CHRONIC DISEASE VISIT [facility] Start: 05-11-2023 Behavioral Health Screening Behavioral Health Screening [facility] Start: 04-16-2023 End: 07-16-2023 [facility] Work Phone: Comment on above: Expected: 04/16/2023 , Expires: 07/16/2023 Start: 04-16-2023 End: 07-16-2023 [employer] [facility] Work Phone: Comment on above: Expected: 04/16/2023 , Expires: 07/16/2023 Start: 03-20-2023 [facility] Start: 03-20-2023 [facility] Start: 03-07-2023 End: 05-07-2023 25-hydroxyvitamin D3 [Mass/volume] in Serum or Plasma VITAMIN D 25 HYDROXY Lab Routine History of gastric bypass Medication management Expected: 03/07/2023, Expires: 05/07/2023 [facility] Work Phone: Comment on above: Expected: 03/07/2023 , Expires: 05/07/2023 Start: 03-07-2023 ANNUAL PCP TEAM MANUFACTURER REPRESENTATIVE DEWAYNE DISEASE VISIT ANNUAL PCP TEAM CHRONIC DISEASE VISIT [facility] Start: 03-07-2023 End: 05-07-2023 CBC W Auto Differential panel - Blood CBC + DIFF Lab Routine Elevated fasting blood sugar Expected: 03/07/2023, Expires: 05/07/2023 [facility] Work Phone: Comment on above: Expected: 03/07/2023 , Expires: 05/07/2023 Start: 03-07-2023 End: 05-07-2023 Cobalamin (Vitamin B12) [Mass/volume] in Serum or Plasma VITAMIN B12 BLOOD Lab Routine History of gastric bypass Medication management Expected: 03/07/2023, Expires: 05/07/2023 [facility] Work Phone: Comment on above: Expected: 03/07/2023 , Expires: 05/07/2023 Start: 03-07-2023 End: 05-07-2023 Comprehensive metabolic 2000 panel - Serum or Plasma COMP METABOLIC PANEL Lab Routine Mixed hyperlipidemia GERD without esophagitis Elevated fasting blood sugar Expected: 03/07/2023, Expires: 05/07/2023 [facility] Work Phone: Comment on above: Expected: 03/07/2023 , Expires: 05/07/2023 Start: 03-07-2023 End: 05-07-2023 Folate [Mass/volume] in Serum or Plasma FOLATE SERUM Lab Routine History of gastric bypass Medication management Expected: 03/07/2023, Expires: 05/07/2023 [facility] Work Phone: Comment on above: Expected: 03/07/2023 , Expires: 05/07/2023 Start: 03-07-2023 End: 05-07-2023 Hemoglobin A1c in Blood HGB A1C Lab Routine Elevated fasting blood sugar Expected: 03/07/2023, Expires: 05/07/2023 [facility] Work Phone: Comment on above: Expected: 03/07/2023 , Expires: 05/07/2023 Start: 03-07-2023 End: 05-07-2023 Iron and Iron binding capacity panel - Serum or Plasma IRON + TIBC Lab Routine History of gastric bypass Medication management Expected: 03/07/2023, Expires: 05/07/2023 [facility] Work Phone: Comment on above: Expected: 03/07/2023 , Expires: 05/07/2023 Start: 03-07-2023 End: 05-07-2023 LIPID PANEL, NONFASTING LIPID PANEL, NONFASTING Lab Routine Mixed hyperlipidemia Expected: 03/07/2023, Expires: 05/07/2023 [facility] Work Phone: Comment on above: Expected: 03/07/2023 , Expires: 05/07/2023 Start: 03-07-2023 End: 05-07-2023 Magnesium [Mass/volume] in Serum or Plasma MAGNESIUM BLD Lab Routine History of gastric bypass Medication management Expected: 03/07/2023, Expires: 05/07/2023 [facility] Work Phone: Comment on above: Expected: 03/07/2023 , Expires: 05/07/2023 Start: 03-07-2023 End: 05-07-2023 Prostate specific Ag [Mass/volume] in Serum or Plasma PSA/PROSTSPECAG DIAG Lab Routine Prostate disorder Expected: 03/07/2023, Expires: 05/07/2023 [facility] Work Phone: Comment on above: Expected: 03/07/2023 , Expires: 05/07/2023 Start: 03-07-2023 End: 05-07-2023 Retinol [Mass/volume] in Serum or Plasma VITAMIN A/RETINOL Lab Routine History of gastric bypass Medication management Expected: 03/07/2023, Expires: 05/07/2023 [facility] Work Phone: Comment on above: Expected: 03/07/2023 , Expires: 05/07/2023 Start: 03-07-2023 SHINGRIX VACCINE (1 of 2) SHINGRIX VACCINE (1 of 2) [facility] Comment on above: Postponed from 11/15 (Insurance Coverage) Start: 03-07-2023 End: 05-07-2023 Urinalysis complete panel - Urine URINALYSIS, WITH MICROSCOPIC Lab Routine Elevated fasting blood sugar Expected: 03/07/2023, Expires: 05/07/2023 [facility] Work Phone: Comment on above: Expected: 03/07/2023 , Expires: 05/07/2023 Start: 03-07-2023 End: 05-07-2023 Zinc [Mass/volume] in Serum or Plasma ZINC BLD Lab Routine History of gastric bypass Medication management Expected: 03/07/2023, Expires: 05/07/2023 [facility] Work Phone: Comment on above: Expected: 03/07/2023 , Expires: 05/07/2023 Start: 03-05-2023 Hepatitis B surface antibody level LDL CHOLESTEROL [facility] Start: 02-09-2023 [facility] Start: 01-12-2023 Urine microalbumin profile [facility] Start: 01-09-2023 Covid-19 Vaccine () Covid-19 Vaccine () [facility] Start: 01-09-2023 Influenza vaccination Influenza Vacc ine (#1) [facility] Start: 11-10-2022 Adult depression screening assessment DEPRESSION SCREENING [facility] Start: 10-24-2022 ANNUAL PCP TEAM MANUFACTURER REPRESENTATIVE DEWAYNE DISEASE VISIT ANNUAL PCP TEAM CHRONIC DISEASE VISIT [facility] Start: 09-03-2022 ANNUAL PCP TEAM MANUFACTURER REPRESENTATIVE DEWAYNE DISEASE VISIT ANNUAL PCP TEAM CHRONIC DISEASE VISIT [facility] Start: 09-02-2022 Egd flexible foreign body removal EGD REMOVE FOREIGN BODY [facility] Start: 09-02-2022 Egd insert guide wir e dilator passage esophagus EGD GUIDE WIRE INSERTION [facility] Start: 09-02-2022 Egd transoral biopsy single/multiple EGD BIOPSY SINGLE/MULTIPLE [facility] Start: 09-02-2022 Patient discharge [facility] Start: 08-28-2022 Hepatitis B surface antibody level LDL CHOLESTEROL [facility] Start: 08-22-2022 End: 10-22-2022 Hemoglobin A1c in Blood HGB A1C Lab Routine Elevated fasting blood sugar Expected: 08/22/2022, Expires: 10/22/2022 [facility] Work Phone: Comment on above: Expected: 08/22/2022 , Expires: 10/22/2022 Start: 08-22-2022 End: 10-22-2022 Hepatic function 2000 panel - Serum or Plasma HEPATIC FUNCTION PNL Lab Routine 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 Mixed hyperlipidemia Expected: 08/22/2022, Expires: 10/22/2022 [facility] Work Phone: Comment on above: Expected: 08/22/2022 , Expires: 10/22/2022 Start: 08-22-2022 End: 10-22-2022 LIPID PANEL, NONFASTING LIPID PANEL, NONFASTING Lab Routine 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 Mixed hyperlipidemia Bilateral carotid artery disease, unspecified type (HCC) Expected: 08/22/2022, Expires: 10/22/2022 [facility] Work Phone: Comment on above: Expected: 08/22/2022 , Expires: 10/22/2022 Start: 07-19-2022 Covid-19 Vaccine (5 - Moderna series) Covid-19 Vaccine (5 - Moderna series) [facility] Start: 05-26-2022 End: 07-26-2022 CBC W Auto Differential panel - Blood CBC + DIFF Lab STAT Iron deficiency anemia secondary to inadequate dietary iron intake Malabsorption syndrome Expected: 05/26/2022, Expires: 07/26/2022 [facility] Work Phone: Comment on above: Expected: 05/26/2022 , Expires: 07/26/2022 Start: 05-26-2022 End: 07-26-2022 Ferritin [Mass/volume] in Serum or Plasma FERRITIN BLD Lab Routine Iron deficiency anemia secondary to inadequate dietary iron intake Malabsorption syndrome Expected: 05/26/2022, Expires: 07/26/2022 [facility] Work Phone: Comment on above: Expected: 05/26/2022 , Expires: 07/26/2022 Start: 05-26-2022 End: 07-26-2022 Iron and Iron binding capacity panel - Serum or Plasma IRON + TIBC Lab Routine Iron deficiency anemia secondary to inadequate dietary iron intake Malabsorption syndrome Expected: 05/26/2022, Expires: 07/26/2022 [facility] Work Phone: Comment on above: Expected: 05/26/2022 , Expires: 07/26/2022 Start: 05-19-2022 End: 07-19-2022 CBC W Auto Differential panel - Blood CBC + DIFF Lab STAT Iron deficiency anemia secondary to inadequate dietary iron intake Expected: 05/19/2022, Expires: 07/19/2022 [facility] Work Phone: Comment on above: Expected: 05/19/2022 , Expires: 07/19/2022 Start: 05-19-2022 End: 07-19-2022 Ferritin [Mass/volume] in Serum or Plasma FERRITIN BLD Lab Routine Iron deficiency anemia secondary to inadequate dietary iron intake Expected: 05/19/2022, Expires: 07/19/2022 [facility] Work Phone: Comment on above: Expected: 05/19/2022 , Expires: 07/19/2022 Start: 05-19-2022 End: 07-19-2022 Iron and Iron binding capacity panel - Serum or Plasma IRON + TIBC Lab Routine Iron deficiency anemia secondary to inadequate dietary iron intake Expected: 05/19/2022, Expires: 07/19/2022 [facility] Work Phone: Comment on above: Expected: 05/19/2022 , Expires: 07/19/2022 Start: 05-11-2022 DEPRESSION ASSESSMENT DEPRESSION ASS ESSMENT [facility] Start: 01-09-2022 Influenza vaccination INFLUENZA (#1) [facility] Start: 09-25-2021 FECAL OCCULT BLOOD FECAL OCCULT BLOO D [facility] Start: 09-25-2021 Screening for malign ant neoplasm of colon Fecal Occult Blood [facility] Start: 09-01-2021 COVID-19 VACCINE (4 - Booster for Moderna series) COVID-19 VACCINE (4 - Booster for Moderna series) [facility] Start: 08-27-2021 Adult depression screening assessment DEPRESSION SCREENING [facility] Start: 06-28-2021 COVID-19 VACCINE (4 - Booster for Moderna series) COVID-19 VACCINE (4 - Booster for Moderna series) [facility] Start: 10-31-2016 End: 10-31-2016 Appointment Appointment [facility] Work Phone: Start: 08-20-2016 End: 09-08-2016 *BMP *BMP [facility] Work Phone: Start: 08-20-2016 End: 09-08-2016 aPTT *PTT-Partial Thromboplastin Time [facility] Work Phone: Start: 08-20-2016 End: 09-08-2016 aPTT Coag time (PPP) *PTT-Partial Thromboplastin Time [facility] Work Phone: Start: 08-20-2016 End: 09-08-2016 CBC W Auto Differential panel - Blood *CBC without Diff [facility] Work Phone: Start: 08-20-2016 End: 09-09-2016 Chest x-ray X-Ray, Chest, PA & Lateral [facility] Work Phone: Start: 08-20-2016 End: 09-08-2016 Coagulation factor induced.INR assay in platelet poor plasma *PT/INR [facility] Work Phone: Start: 08-20-2016 End: 10-10-2016 Electrocardiogram, complete EKG (In office) [facility] Work Phone: Start: 08-20-2016 End: 10-10-2016 Follow Up Appt 2 months Follow Up Appt 2 months [facility] Work Phone: Start: 08-20-2016 End: 09-04-2016 Left Heart Cath Left Heart Cath [facility] Work Phone: Start: 08-20-2016 End: 10-10-2016 MMM MMM [facility] Work Phone: Start: 2014 RSV Vaccine (1 - 1-d ose 60+ series) RSV Vaccine (1 - 1-dose 60+ series) [facility] Start: 2004 SHINGRIX VACCINE (1 of 2) SHINGRIX VACCINE (1 of 2) [facility] Start: 11-16-1999 COLOGUARD (FIT-DNA) COLOGUARD (FIT-D NA) [facility] Start: 11-16-[address] COLONOGRAPHY [facility] Start: 11-16-1999 Screening for malign ant neoplasm of colon [facility] Start: 11-16-1999 SIGMOIDOSCOPY SIGMOIDOSCOPY [facility] Start: 1984 Zoledronic acid therapy ALPHA- 1 ANTITRYPSIN DEFICIENCY SCREENING [facility] Bacteria identified in Sputum by Respiratory culture [facility] COVID & INFLUENZA A/ B & RSV NAAT, ROUTINE COVID & INFLUENZA A/B & RSV NAAT, ROUTINE Microbiology Routine URI, acute 09/18/2023 3:35 PM EDT [facility] COVID & INFLUENZA A/ B & RSV PCR, ROUTINE COVID & INFLUENZA A/B & RSV PCR, ROUTINE Microbiology Routine Acute cough Wheezing Ordered: 07/01/2024 [facility] Work Phone: Comment on above: Ordered: 07/01/2024 CT Chest WO contrast CT CHEST WO IVCON Radiology Routine Lung nodules 06/17/2024 9:11 AM EST [facility] Work Phone: End: 10-24-2022 ECG COMPLETE ECG COMPLETE ECG Routine 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 Exertional chest pain 1 Occurrences starting 10/24/2021 until 10/24/2022 [facility] Work Phone: Comment on above: 1 Occurrences starti ng 10/24/2021 until 10/24/2022 ECG COMPLETE [facility] Comment on above: Ordered: 09/18/2023 Ferritin [Mass/volum e] in Serum or Plasma [facility] Iron [Mass/mass] in Unspecified specimen [facility] Iron and Iron bindin g capacity panel - Serum or Plasma [facility] Iron saturation [Mas s Fraction] in Serum or Plasma [facility] Patient Education [facility] Work Phone: Patient referral [facility] Work Phone: End: 04-15-2023 PVR ANK PRESS [facility] PVR ANK PRESS [facility] Vascular Lab Routine Ingrowing toenail Diminished pulses in lower extremity 1 Occurrences starting 04/15/2022 until 04/15/2023 [facility] Work Phone: Comment on above: 1 Occurrences starti ng 04/15/2022 until 04/15/2023 Respiratory pathogen s DNA and RNA panel - Respiratory specimen by VALARIE with probe detection [facility] End: 05-27-2024 US ABD RIGHT UPPER QUADRANT US ABD RIGHT UPPER QUADRANT Radiology Routine Epigastric pain 1 Occurrences starting 04/28/2023 until 05/27/2024 [facility] Work Phone: Comment on above: 1 Occurrences starti ng 04/28/2023 until 05/27/2024 End: 06-15-2025 US Carotid arteries - bilateral US CAROTID ARTERIES [facility] Vascular Lab Routine Bilateral carotid artery disease, unspecified type (HCC) 1 Occurrences starting 06/15/2024 until 06/15/2025 [facility] Work Phone: Comment on above: 1 Occurrences starti ng 06/15/2024 until 06/15/2025 End: 10-17-2024 XR Chest PA and Lateral XR CHEST 2V FRONTAL/LAT Radiology Routine URI, acute 1 Occurrences starting 09/18/2023 until 10/17/2024 [facility] Work Phone: Comment on above: 1 Occurrences starti ng 09/18/2023 until 10/17/2024 XR Chest PA and Lateral XR CHEST 2V FRONTAL/LAT Radiology Routine URI, acute 09/18/2023 4:04 PM EDT [facility] XR Foot - left AP an d Lateral and oblique XR FOOT GENERAL 3V AP/LAT/OBL LEFT Radiology Routine Pain 05/19/2024 10:25 AM EST [facility] Work Phone: [facility] Immunizations Immunization Date Immunization Notes Care Provider Manoj taylor 06-15-2024 influenza, high dose seasonal, preservative-free Andry Jean-Baptiste MD Work Phone: [facility] 06-26-2023 zoster vaccine recombinant Teri Gross MD Work Phone: [facility] 06-11-2023 tetanus toxoid, redu no diphtheria toxoid, and acellular pertussis vaccine, adsorbed Irma Perez PA-C Work Phone: [facility] 06-10-2023 respiratory syncytia l virus (RSV) vaccine, adjuvanted (AREXVY) Ct (I-Stat) Work Phone: [facility] 06-10-2023 tetanus toxoid, redu no diphtheria toxoid, and acellular pertussis vaccine, adsorbed Ct (I-Stat) Work Phone: [facility] 04-14-2023 influenza (HD-IIV4) vaccine, age 65+ yr, high dose, quadrivalent, PF (FLUZONE HIGH-DOSE) Lew Bird APRN.COUNTER CASER Work Phone: [facility] 04-14-2023 influenza virus vaccine, unspecified formulation Irma Perez PA-C Work Phone: [facility] 03-21-2022 COVID-19 booster vaccine, age 12+ yr, bivalent (MODERNA) Srinath Summers Work Phone: [facility] 03-07-2022 influenza, high-dose , quadrivalent vaccine (FLUZONE HIGH DOSE QUADRIVALENT) Andry Jean-Baptiste MD Work Phone: [facility] 03-07-2022 influenza virus vaccine, unspecified formulation Andry Jean-Baptiste MD Work Phone: [facility] 05-03-2021 COVID-19 vaccine, booster dose (MODERNA) Andry Jean-Baptiste MD Work Phone: [facility] 03-04-2021 influenza, high-dose , quadrivalent vaccine (FLUZONE HIGH DOSE QUADRIVALENT) Andry Jean-Baptiste MD Work Phone: [facility] 08-08-2020 COVID-19 vaccine, fu ll dose (MODERNA) Andry Jean-Baptiste MD Work Phone: [facility] Work Phone: 07-12-2020 COVID-19 vaccine, fu ll dose (MODERNA) Andry Jean-Baptiste MD Work Phone: [facility] Work Phone: 02-03-2020 influenza virus vaccine, unspecified formulation Andry Jean-Baptiste MD Work Phone: [facility] 03-12-2018 influenza virus vaccine, unspecified formulation Andry Jean-Baptiste MD Work Phone: [facility] 01-12-2013 tetanus toxoid, redu no diphtheria toxoid, and acellular pertussis vaccine, adsorbed Andry Jean-Baptiste MD Work Phone: [facility] Payers Date Payer Category Payer Self-pay [id number] 2022 Medicare (Managed Care) [facility] [id number] 2022 Medicare [id number] 2017 Medicare MEDICARE MEDICAR E A AND B [id number] 2017-Present [phone] [address] [address] [place] [address] Medicare [id number] 2017 Medicare [id number] 2014 Unknown [facility] [id number] 2014-Present [phone] [address] [address] [place] [address] [id number] 2013 Unknown ANTHEM [id number] Medicare MEDICARE PART A B [id number] 2 [id number] Unknown [id number] Unknown SELF INSURED [facility] OTHER [id number] Unknown [id number] Unknown [id number] Unknown [id number] Unknown [id number] Unknown [id number] Unknown [id number] Unknown [id number] Unknown [id number] Social History Date Type Detail Facility Start: 05-20-2021 End: 04-06-2024 Tobacco smoking status NHIS Ex-smoker [facility] Start: 08-07-1968 End: 08-07-2001 History of tobacco use Current smoker [facility] Start: 08-07-1968 End: 08-07-2001 History of tobacco use Cigarette Smoker [facility] Start: 09-03-2021 End: 08-18-2024 Alcohol intake Current non-drinker of alcohol (finding) [facility] Start: 10-26-2019 End: 07-11-2022 History SDOH Alcohol Frequency 1 [facility] Start: 10-26-2019 History SDOH Alcohol Std Drinks 98 [facility] Start: 01-12-2013 History SDOH Alcohol Comment no alcohol since before 1999 [facility] Start: 07-22-2019 End: 07-11-2022 History SDOH Social Connections Phone 5 [facility] Start: 07-22-2019 End: 07-11-2022 History SDOH Social Connections Get Together 2 [facility] Start: 07-22-2019 End: 07-11-2022 History SDOH Social Connections Christianity 3 [facility] Start: 07-22-2019 End: 07-11-2022 History SDOH Physical Activity DPW 0 [facility] Start: 07-22-2019 End: 07-11-2022 History SDOH Financial 4 [facility] Start: 07-21-2019 Education 10 [facility] Start: 1955 Sex Assigned At Male [facility] Start: 08-24-2021 End: 03-07-2022 Exposure to SARS-CoV-2 (event) Not sure [facility] Start: 05-20-2021 End: 02-20-2023 Cigarettes smoked current (pack per day) - Reported 2 [facility] Start: 05-20-2021 End: 04-06-2024 Tobacco use and exposure Smokeless tobacco non-user [facility] Start: 09-24-2022 End: 09-20-2023 Tobacco smoking status NHIS Unknown if ever smoked [facility] Start: 10-24-2021 Sober [facility] Start: 10-24-2021 None [facility] Start: 10-24-2021 Non-smoker [facility] Start: 07-11-2022 End: 02-20-2023 Social connection and isolation panel [facility] Do you belong to any clubs or organizations such as bahai groups, unions, fraternal or athletic groups, or school groups? Yes [facility] Are you now , , , , never or living with a partner? [facility] How often to you hav e a drink containing alcohol? Never [facility] How many standard dr inks containing alcohol do you have on a typical day? Patient does not drink [facility] Do you feel stress - tense, restless, nervous, or anxious, or unable to sleep at night because your mind is troubled all the time - these days [OSQ] Only a little [facility] (I/We) worried wheth er (my/our) food would run out before (I/we) got money to buy more. Never true [facility] In the past 12 month s, was there a time when you were not able to pay the mortgage or rent on time? No [facility] Start: 08-13-2018 Gender identity Identifies as male gender (finding) [facility] Start: 08-13-2018 Sexual orientation Heterosexual (finding) [facility] How hard is it for y ou to pay for the very basics like food, housing, medical care, and heating Not very hard [facility] Do you feel stress - tense, restless, nervous, or anxious, or unable to sleep at night because your mind is troubled all the time - these days [OSQ] Not at all [facility] Goals Date Patient Goal Desired Activity /State Personal health goal Functional Status Date Assessment Result Facility 04-20-2019 Are you deaf, or do you have serious difficulty hearing No 04/20/2019 12:16 PM Yamila Davies RN No [facility] 04-20-2019 Are you blind, or do you have serious difficulty seeing, even when wearing glasses No 04/20/2019 12:16 PM Yamila Davies RN No [facility] 04-20-2019 Do you have serious difficulty walking or climbing stairs No 04/20/2019 12:16 PM Yamila Davies RN No [facility] 04-20-2019 Do you have difficul ty dressing or bathing No 04/20/2019 12:16 PM Yamila Davies RN No [facility] 04-20-2019 Because of a physica l, mental, or emotional condition, do you have difficulty doing errands alone such as visiting a physician's office or shopping No 04/20/2019 12:16 PM Yamila Davies RN No [facility] Mental Status Date Assessment Result Facility 02-09-2023 Cognitive function Level Of Cons ciousness Awake;Alert;Appropriate;Fol lows Commands [facility] Work Phone: 09-02-2022 Cognitive function Level Of Cons ciousness Drowsy;Sedated [facility] Work Phone: 09-02-2022 Cognitive function Voice/Name [facility] Work Phone: 04-20-2019 Because of a physica l, mental, or emotional condition, do you have serious difficulty concentrating, remembering, or making decisions No 04/20/2019 12:16 PM Yamila Davies RN No [facility] Clinical Notes 01-13-2013 to 09-09-2024 Telephone Encounter [...] attach to forms to then be faxed. [facility] 09-09-2024 Miscellaneous Notes Sw spoke with patient [...] then be faxed. documented in this encounter [facility] 09-09-2024 Note HNO ID: [id number] Author: TERI GROSS MD Service: ? Author Type: Physician Type: Progress Notes Filed: 09/09/2024 16:35 Note Text: . [facility] [place] Note Patient name: Tara Arellano PCP: Andry [...] by mouth once daily for 7 days. bserrdzhcwr-xtibzlzoq-fatxybzo (TRELEGY ELLIPTA) 100-62.5-25 mcg inhalation powder Inhale [...] a week. cy (more content not included)... [facility] 09-09-2024 History of Present illness Narrative Images from the original note were not included. . [facility] [place] [facility] Patient name: Tara Arellano PCP: Andry [...] by mouth once daily for 7 days. 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 Acute bronchitis -See #1 -Recommended masking when exposed to dusts, etc. 3. Former cigarette smoker -Former smoker with emphysema/COPD -Does not qualify for lung cancer screening but is scheduled for CT chest in one year for lung nodules Teri Gross MD [facility] [place] documented in this encounter [facility] 09-07-2024 Telephone encounter Note Received a call [...] to the pharmacy it should go to [facility] in [place]. [facility] 09-07-2024 Miscellaneous Notes Received a call from [...] to the pharmacy it should go to [facility] in [place]. documented in this encounter [facility] 08-18-2024 Instructions Jaimie Jett APRN.CNP - 08/18/2024 11:34 AM EDT 1) Keep appt. With Lew 12/13/24 2) Augmentin 875 mg 2 x day for 10 days documented in this encounter [facility] 08-18-2024 Note HNO ID: [id number] Author: JAIMIE JETT APRN.CNP Service: ? Author [...] Take 1 tabl (more content not included)... [facility] 08-18-2024 History of Present illness Narrative This [...] Take 1 tablet by mouth once daily. cbngujrggog-ghzwcemwm-wiwutpvl (TRELEGY ELLIPTA) 100-62.5-25 mcg inhalation powder Inhale [...] Jaimie Jett APRN.JEAN documented in this encounter [facility] 08-18-2024 Telephone encounter Note Pt's Sola calling in and states pt scratched his left lower arm on a ryne nail this past Thursday. Sola states that the area around the scratch is red and puffy. Arm looks swollen. States there is an open area. Pt booked for an appt today with Jaimie Jett at 1140. Pt's last tetanus shot was 06/11/23. [facility] 08-18-2024 Miscellaneous Notes Pt's Sola calling in [...] shot was 06/11/23. documented in this encounter [facility] 07-15-2024 Telephone encounter Note Noted. [facility] 07-15-2024 Miscellaneous Notes Noted. Pt's notified of same, verbalizes understanding. just wanted to give Dr Jean-Baptiste an update on pt. States pt had had pneumonia ([facility] pcp was aware), pt got better then they got COVID then pt had a flare up of his COPD and went to [facility] last Thursday and saw his lung Dr on . States pt is doing ok. He Martin LPN Let patient know his zinc level much better. documented in this encounter [facility] 07-15-2024 Telephone encounter Note Pt's notified of same, verbalizes understanding. just wanted to give Dr Jean-Baptiste an update on pt. States pt had had pneumonia (states pcp was aware), pt got better then they got COVID then pt had a flare up of his COPD and went to [facility] last Thursday and saw his lung Dr on . States pt is doing ok. He Martin LPN [facility] 07-15-2024 Telephone encounter Note Let patient know his zinc level much better. [facility] 07-14-2024 History of Present illness Narrative Images from the original note were not included. . [facility] [place] [facility] Patient name: Tara rAellano PCP: Andry Jean-Baptiste MD CC: COPD and lung nodules HPI: Tara Arellano 68 year old male former [id number] smoker quitting in 2001 with PMH significant [...] DATE OF EXAM: Jun 17 2024 9:11AM [facility] 0541 - CT CHEST WO IVCON / [...] hours as needed for wheezing/shortness of breath. gyxhmbutsgv-brqckfqld-lmqsmzua (TRELEGY ELLIPTA) 100-62.5-25 mcg inhalation powder Inhale [...] UNLISTED LAPAROSCOPIC PROCEDURE STOMACH 04/18/2019 Dr. Willard [facility], Social history, family history and surgical history [...] to suggest broncholithiasis Teri Gross MD [facility] [place] documented in this encounter [facility] 07-14-2024 Note HNO ID: [id number] Author: TERI GROSS MD Service: ? Author Type: Physician Type: Progress Notes Filed: 07/14/2024 14:10 Note Text: . [facility] [place] [facility] Patient name: Tara Arellano PCP: Andry Jean-Baptiste MD CC: COPD and lung nodules HPI: Tara Arellano 68 year old male former [id number] smoker quitting in 2001 with PMH significant [...] DATE OF EXAM: Jun 17 2024 9:11AM [facility] 0541 - CT CHEST WO IVCON / [...] virus infection) 05/30 (more content not included)... [facility] 07-05-2024 Instructions Jaimie Jett APRN.CNP - 07/05/2024 12:44 PM EST 1) Topiramate 1/2 tablet 2 x day for 1 week then 25 mg 2 x day for migraine prevention 2) Levaquin 500 mg daily for 7 days 3) 12 day prednisone taper 4) Follow up with Lew as scheduled documented in this encounter [facility] 07-05-2024 Note HNO ID: [id number] Author: JAIMIE JETT APRN.CNP Service: ? Author [...] mouth at bedtime as needed (muscle spasms). aefcdegpcoj-sjnsdpmhe-tcwzhkub (T (more content not included)... [facility] 07-05-2024 History of Present illness Narrative This [...] mouth at bedtime as needed (muscle spasms). gqmnkopjduj-iztngslyx-cnhbahpv (TRELEGY ELLIPTA) 100-62.5-25 mcg inhalation powder Inhale [...] NEBULIZATION SOLN 3. 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 Sapna Cuevas LPN [facility] 07-04-2024 Miscellaneous Notes notified of provider message/results. Sapna Cuevas LPN Called and left message on patients spouse's voicemail to return call to the office and ask to speak with a triage nurse. Gina Floyd MA Please let patient know he is positive for covid. Since he has been continuously sick for weeks he is not eligible for treatment. documented in this encounter [facility] 07-04-2024 Telephone encounter Note Called and left message on patients spouse's voicemail to return call to the office and ask to speak with a triage nurse. Gina Floyd MA [facility] 07-04-2024 Telephone encounter Note Please let patient know he is positive for covid. Since he has been continuously sick for weeks he is not eligible for treatment. [facility] 07-01-2024 Telephone encounter Note Pt notified and verbalized understanding Radha Ramires MA [facility] 07-01-2024 Miscellaneous Notes Pt notified and verbalized understanding Radha Ramires MA Please let patient know their xray is normal. documented in this encounter [facility] 07-01-2024 Telephone encounter Note Please let patient know their xray is normal. [facility] 07-01-2024 Note SARS-COV-2 (AGENT OF COVID-19) RNA: Detected INFLUENZA A RNA: Not detected INFLUENZA B RNA: Not detected RESPIRATORY SYNCYTIAL VIRUS (RSV) RNA: Not detected [facility] Comment on above: Performed By: #### 9 [id number] ####[facility] LABCLIA [id number] [address] 07-01-2024 History of Present illness Narrative [...] PATIENT PRESENTS WITH AN IMPLANTABLE OR ATTACHED HAND STONE POLISHER: No RADIOLOGY DEPARTMENT: General X-ray: Exam(s) Completed: Chest X-Ray PERIPHERAL IV DATA: Not applicable SIGNED BY: Zeny Lei July 01, 2024 2:02 PM documented in this encounter [facility] 07-01-2024 Note HNO ID: [id number] Author: ROBYN GUADALUPE Tech Service: ? Author [...] PATIENT PRESENTS WITH AN IMPLANTABLE OR ATTACHED HAND STONE POLISHER: No RADIOLOGY DEPARTMENT: General X-ray: Exam(s) Completed: Chest X-Ray PERIPHERAL IV DATA: Not applicable SIGNED BY: Zeny Lei July 01, 2024 2:02 PM [facility] 07-01-2024 Note HNO ID: [id number] Author: LEW BIRD APRN.COUNTER CASER Service: ? Author Type: Nurse Practitioner Type: [...] EXTRA STRENGTH) 5 (more content not included)... [facility] 07-01-2024 History of Present illness Narrative Chief [...] mouth at bedtime as needed (muscle spasms). ycrzyrzmimg-cerouxlnj-esngxcqe (TRELEGY ELLIPTA) 100-62.5-25 mcg inhalation powder Inhale [...] A/B & RSV PCR, ROUTINE Lew Bird APRN.COUNTER CASER documented in this encounter [facility] 07-01-2024 Telephone encounter Note called in to report pt was dx with Pneumonia earlier and was treated with ATB and steroids. Pt was doing okay till about 3 to 4 days ago and started with symptoms again and coughing. Pt scheduled apt today 07-01-24 with provider/team. also not feeling well and book for apt after pts. Vanesa Fontanez LPN [facility] 07-01-2024 Miscellaneous Notes called in to report pt was dx with Pneumonia earlier and was treated with ATB and steroids. Pt was doing okay till about 3 to 4 days ago and started with symptoms again and coughing. Pt scheduled apt today 07-01-24 with provider/team. also not feeling well and book for apt after pts. Vanesa Fontanez LPN documented in this encounter [facility] 06-21-2024 Note Addended by: JAIMIE JETT on: 06/21/2024 03:58 PM Modules accepted: Orders [facility] 06-21-2024 Miscellaneous Notes Addended by: JAIMIE JETT on: 06/21/2024 03:58 PM Modules accepted: Orders documented in this encounter [facility] 06-21-2024 Instructions Jaimie Jett APRN.CNP - 06/21/2024 3:54 PM EST 1) Amoxicillin / clavulanate 2 x day for 10 days 2) Azithromycin 2 tablets today, 1 daily for 4 more days 3) Prednisone 4 tablets daily for 3 days, 2 tablets daily for 3 days, 1 tablets daily for 3 days 4) Follow up 2 weeks documented in this encounter [facility] 06-21-2024 Note HNO ID: [id number] Author: JAIMIE JETT APRN.CNP Service: ? Author [...] mouth at bedtime as needed (muscle spasms). rwkwwlxdaty-lbizvtdan-kpxwjutl (TRELEGY ELLIPTA) 100-62.5-25 mcg inhalation powder Inhale 1 Puff as instructed once daily. cholecalciferol, Vitamin D3, (VITAMIN D3) 1,250 mcg (50,000 unit) cap capsule Take 1 capsule by mouth one time a week. ipratropium-albuterol (DUONEB) 0.5 mg-3 mg(2.5 mg ba (more content not included)... [facility] 06-21-2024 History of Present illness Narrative This [...] mouth at bedtime as needed (muscle spasms). tlnxkbtrtmd-xjgwqobby-wrdyssdx (TRELEGY ELLIPTA) 100-62.5-25 mcg inhalation powder Inhale [...] as needed for worsening/no improvement. Jaimie Jett APRN.COUNTER CASER documented in this encounter [facility] 06-17-2024 History of Present illness Narrative Radiology [...] PATIENT PRESENTS WITH AN IMPLANTABLE OR ATTACHED HAND STONE POLISHER: No RADIOLOGY DEPARTMENT: CT; Exam(s) Completed: Chest PERIPHERAL IV DATA: Not applicable SIGNED BY: RT Shelton(Maria Elena) June 17, 2024 9:13 AM documented in this encounter [facility] 06-17-2024 Note HNO ID: [id number] Author: CHAYO GOMEZ RT(R) Service: ? Author Type: Marine Equipment Engineer Type: Progress Notes Filed: 06/17/2024 09:13 Note [...] PATIENT PRESENTS WITH AN IMPLANTABLE OR ATTACHED HAND STONE POLISHER: No RADIOLOGY DEPARTMENT: CT; Exam(s) Completed: Chest PERIPHERAL IV DATA: Not applicable SIGNED BY: RT Shelton(R) June 17, 2024 9:13 AM [facility] 06-15-2024 Instructions Andry Jean-Baptiste MD - 06/15/2024 [...] review all the medicines you take, even fffh-kde-lenlust medicines. As you get older, the way [...] certain medical conditions. documented in this encounter [facility] 06-15-2024 History of Present illness Narrative Images [...] General (Family Medicine) Lew Bird APRN.JEAN as Optical Laboratory Manager (Family Medicine) Irma Perez PA-C as Optical Laboratory Manager (Family Medicine) Cardiology last visit 10/2023 Dr. [...] mouth at bedtime as needed (muscle spasms). wrqqusdiwoj-nbggoniki-ziugycge (TRELEGY ELLIPTA) 100-62.5-25 mcg inhalation powder Inhale [...] Lymph 1.00 - 4.00 k/uL 1.41 1.43 [place]% % 7.8 7.2 Abs [place] <0.87 k/uL 0.41 0.34 Eosin% % 5.5 [...] Negative Ketones, Urine Negative Negative Negative Specific [place], Ur 1.005 - 1.030 1.015 1.015 Hemoglobin/Blood,Ur [...] mg BID 5. 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 Andry Jean-Baptiste MD Participation of a fellow, resident, medical student, or advanced practice provider student in performing the sensitive examination was discussed with the patient or authorized nutrition representative. The patient or authorized nutrition representative has agreed to proceed with the sensitive examination. (Sensitive examination includes inspection and/or palpation of the breasts, pelvis, prostate and anorectal regions) documented in this encounter [facility] 06-15-2024 Note HNO ID: [id number] Author: ANDRY JEAN-BAPTISTE MD Service: ? Author [...] General (Family Medicine) Lew Bird APRN.CNP as Optical Laboratory Manager (Family Medicine) Irma Perez PA-C as Optical Laboratory Manager (Family Medicine) Cardiology last visit 10/2023 Dr. [...] History PAST SALAZAR (more content not included)... [facility] 05-24-2024 Telephone encounter Note Prescription Refill Information [...] Julio LPN May 24, 2024 11:51 AM [facility] 05-24-2024 Miscellaneous Notes Prescription Refill Information The [...] 2024 11:51 AM documented in this encounter [facility] 05-19-2024 Telephone encounter Note The following approved medication requests have been transmitted electronically. Requested Prescriptions Signed Prescriptions Disp Refills triamcinolone acetonide topical 0.5 % ointment 30 g 1 Sig: Apply to affected area two times a day. May use up to 2 weeks. Andry Jean-Baptiste MD [facility] 05-19-2024 Miscellaneous Notes The following approved medication requests have been transmitted electronically. Requested Prescriptions Signed Prescriptions Disp Refills triamcinolone acetonide topical 0.5 % ointment 30 g 1 Sig: Apply to affected area two times a day. May use up to 2 weeks. Andry Jean-Baptiste MD Please resend triamcinolone to patients [facility] in [place]. Does not want [facility]. Thank you, Nancy Medley MA documented in this encounter [facility] 05-19-2024 Telephone encounter Note Please resend triamcinolone to patients [facility] in [place]. Does not [facility]. Thank you, Nancy Medley MA [facility] 05-19-2024 Srinath Ureña - 05/19/2024 11:10 AM [...] time on their feet, such as nurses, slubber machine operator/waiters, and mail carriers, often experience plantar fasciitis. [...] choose the one that fits the best. [place] with your athletic shoes to find a [...] repeat the exercise. documented in this encounter [facility] 05-19-2024 Note HNO ID: [id number] Author: SRINATH SUMMERS, ? Service: ? Author [...] hours as needed for wheezing/shortness of breath. qbmkpwvdtar-qycrjdzzi-whesajok (TRELEGY ELLIPTA) 100-62.5-25 mcg inhalation powder Inhale [...] Unknown Lipitor [Atorvastat* (more content not included)... [facility] 05-19-2024 History of Present illness Narrative Initial [...] hours as needed for wheezing/shortness of breath. hovrcfrldpv-cbickowjl-xezafacm (TRELEGY ELLIPTA) 100-62.5-25 mcg inhalation powder Inhale [...] declined. Srinath Summers DPM Podiatry [address] [facility] [address] Dept: [phone] Dept AMB ROOMING INTAKE FLOWSHEET DATA Pain Pain Location: Foot-Left Description: Sharp, Throbbing Duration Amount of Time: 1 Duration Units: Months Frequency: Intermittent Intervention/Comfort measure: Medication Patient presents with: Left Foot - Heel/foot radiating up left leg, Pain Radha Cosme MA documented in this encounter [facility] 05-19-2024 Note HNO ID: [id number] Author: RADHA COSME MA Service: ? Author Type: Printed Circuit Board Panels Plater Type: Progress Notes Filed: 05/19/2024 11:14 Note Text: AMB ROOMING INTAKE FLOWSHEET DATA Pain Pain Location: Foot-Left Description: Sharp, Throbbing Duration Amount of Time: 1 Duration Units: Months Frequency: Intermittent Intervention/Comfort measure: Medication Patient presents with: Left Foot - Heel/foot radiating up left leg, Pain Radha Cosme MA [facility] 05-19-2024 History of Present illness Narrative Radiology [...] PATIENT PRESENTS WITH AN IMPLANTABLE OR ATTACHED HAND STONE POLISHER: No RADIOLOGY DEPARTMENT: General X-ray: Exam(s) Completed: Lower Extremity X-Ray(s): Foot, Left and Wt. Bearing PERIPHERAL IV DATA: Not applicable SIGNED BY: HUGH Willson) May 19, 2024 4:41 PM documented in this encounter [facility] 05-19-2024 Note HNO ID: [id number] Author: STEPHANIE REYNOLDS RT(Maria Elena) Service: ? [...] PATIENT PRESENTS WITH AN IMPLANTABLE OR ATTACHED HAND STONE POLISHER: No RADIOLOGY DEPARTMENT: General X-ray: Exam(s) Completed: Lower Extremity X-Ray(s): Foot, Left and Wt. Bearing PERIPHERAL IV DATA: Not applicable SIGNED BY: RT Demetris(R) May 19, 2024 4:41 PM [facility] 05-13-2024 Telephone encounter Note Prescription Refill Information [...] Lorenzana LPN May 13, 2024 7:30 AM [facility] 05-13-2024 Miscellaneous Notes Prescription Refill Information The [...] 2024 7:30 AM documented in this encounter [facility] 05-13-2024 Telephone encounter Note Prescription Refill [...] Lorenzana LPN May 13, 2024 7:27 AM [facility] 05-13-2024 Miscellaneous Notes Prescription Refill Information The [...] 2024 7:27 AM documented in this encounter [facility] 04-06-2024 Instructions Andry Jean-Baptiste MD - 04/06/2024 12:13 PM EST Discussed placing soap bar at the end of the bed and taking 4 ounces of tonic water before bed. documented in this encounter [facility] 04-06-2024 Note HNO ID: [id number] Author: ANDRY JEAN-BAPTISTE MD Service: ? Author Type: Physician Type: Progress Notes Filed: 04/06/2024 12:47 Note Text: Chief Complaint Patient presents with: ER F/U HPI Tara Arellano is a 68 year old male who presents here today for [facility] ER follow up Patient was in [facility] ER on 03/29/2024 for lower extremity [...] hours as needed for wheezing/shortness of breath. rvcttegufss-eekgstinu-ndsbxhni (TRELEGY ELLIPTA) 100-62.5-25 mcg inhalation powder Inhale 1 Puff as (more content not included)... [facility] 04-06-2024 History of Present illness Narrative Images from the original note were not included. Chief Complaint Patient presents with: ER F/U HPI Tara Arellano is a 68 year old male who presents here today for [facility] ER follow up Patient was in [facility] ER on 03/29/2024 for lower extremity [...] hours as needed for wheezing/shortness of breath. gadpnqobrrn-fzetrwdpn-cbdsxbiq (TRELEGY ELLIPTA) 100-62.5-25 mcg inhalation powder Inhale [...] Discontinued Pneumococcal Vaccine: 65+ Discontinued Data reviewed [place] ER report form 03/29/2024. A/P ASSESSMENT/PLAN: 1. [...] Andry Jean-Baptiste MD documented in this encounter [facility] 04-04-2024 Note HNO ID: [id number] Author: ELO SIMPSON RN Service: ? Author [...] Urgent care / Express care Telehealth Nurse chapter relations administrator or Medicare provider nurse triage line Contact made with patient: No, Chart review only. Signature: Elo Simpson RN [facility] 04-04-2024 History of Present illness Narrative ACM [...] Urgent care / Express care Telehealth Nurse chapter relations administrator or Medicare provider nurse triage line Contact made with patient: No, Chart review only. Signature: Elo Simpson RN documented in this encounter [facility] 04-04-2024 Note Patient Outreach ([facility]) TARA ARELLANO ([id number]) 1955 M Date Time Provider Department 04/04/24 [...] Urgent care / Express care Telehealth Nurse chapter relations administrator or Medicare provider nurse triage line Contact made with patient: No, Chart review only. Signature: Elo Simpson RN Allergies As of Date: 04/04/2024 Noted [...] Assessed Reason for Visit: ACM SANDEE RN [0050] Cmt: No action needed. Prescriptions as of 04/04/2024 - albuterol HFA (PROVENTIL HFA, VENTOLIN HFA) 90 mcg/actuation inhaler Inhale 2 Puffs as instructed every 6 hours as needed for wheezing/shortness of breath. - adbfpgcusyk-mfsreohrq-zdzkfcqv (TRELEGY ELLIPTA) 100-62.5-25 mcg inhalation powder Inhale [...] abdominal pain [R10.9 (more content not included)... [facility] 03-30-2024 Note HNO ID: [id number] Author: HE MARTIN LPN Service: ? Author Type: LICENSED NURSE Type: Progress Notes Filed: 03/30/2024 07:12 Note Text: Scan on 03/29/2024 8:44 AM by ProviderSolomon PA-C: Consultation - Emergency Medicine [facility] 03-30-2024 History of Present illness Narrative Scan on 03/29/2024 8:44 AM by Solomon Mitchell PA-C: Consultation - Emergency Medicine documented in this encounter [facility] 02-15-2024 Telephone encounter Note Prescription Refill Information [...] ANUJ Pollack February 15, 2024 9:54 AM [facility] 02-15-2024 Miscellaneous Notes Prescription Refill Information The [...] 2024 9:54 AM documented in this encounter [facility] 01-19-2024 Telephone encounter Note [facility] 07/23/23 Patient phones requesting refills as follows: Requested Prescriptions Pending Prescriptions Disp Refills jdwmnbvydza-hibengmuw-mzrggbcq (TRELEGY ELLIPTA) 100-62.5-25 mcg inhalation powder 1 Each 5 Sig: Inhale 1 Puff as instructed once daily. Please review and advise. Gwen Okeefe LPN [facility] 01-19-2024 Miscellaneous Notes [facility] 07/23/23 Patient phones requesting refills as follows: Requested Prescriptions Pending Prescriptions Disp Refills fwxdavtoncr-lnfgfbvhf-qepcssju (TRELEGY ELLIPTA) 100-62.5-25 mcg inhalation powder 1 Each 5 Sig: Inhale 1 Puff as instructed once daily. Please review and advise. Gwen Okeefe LPN documented in this encounter [facility] 01-14-2024 Telephone encounter Note The following approved medication requests have been transmitted electronically. Requested Prescriptions Signed Prescriptions Disp Refills cholecalciferol, Vitamin D3, (VITAMIN D3) 1,250 mcg (50,000 unit) cap capsule 12 capsule 3 Sig: Take 1 capsule by mouth one time a week. Authorizing Provider: ANDRY JEAN-BAPTISTE MD [facility] 01-14-2024 Miscellaneous Notes The following approved medication [...] 2024 3:29 PM documented in this encounter [facility] 01-14-2024 Telephone encounter Note Prescription Refill Information [...] Lorenzana LPN January 14, 2024 3:29 PM [facility] 12-08-2023 Instructions Irma Perez PA-C - 12/08/2023 9:47 AM EDT Follow up in 6 months for wellness exam. Labs prior. documented in this encounter [facility] 12-08-2023 Note HNO ID: [id number] Author: IRMA PEREZ PA-C Service: ? Author Type: Physician Curator [employer] Type: Progress Notes Filed: 12/08/2023 10:35 Note [...] on File Prior to Visit Medication Sig hzdaljfdyam-siwitklhv-bpxwchhv (TRELEGY ELLIPTA) 100-62.5-25 mcg inhalation powder Inhale [...] VENTOLIN HFA) 90 (more content not included)... [facility] 12-08-2023 History of Present illness Narrative Chief [...] 08/19/2016 Mild per study 07/30/2106, Sees Dr. Colalzo. HAs BiPaP Peptic ulcer, unspecified site, unspecified [...] on File Prior to Visit Medication Sig sxmutaichsi-sypittmhg-sdampikf (TRELEGY ELLIPTA) 100-62.5-25 mcg inhalation powder Inhale [...] ANXIETY SCREENING 4. 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 - ICD9: 414.01, [...] Irma Perez PA-C documented in this encounter [facility] 10-22-2023 Note HNO ID: [id number] Author: MARI SAUCEDA LPN Service: ? Author Type: LICENSED NURSE Type: Progress Notes Filed: 10/22/2023 09:37 Note Text: Scan on 10/20/2023 4:24 PM by Solomon Mitchell PA-C: Consultation - Cardiology Mari Sauceda LPN [facility] 10-22-2023 History of Present illness Narrative Scan on 10/20/2023 4:24 PM by ProviderSolomon PA-C: Consultation - Cardiology Mari Sauceda LPN documented in this encounter [facility] 10-14-2023 History of Present illness Narrative Images from the original note were not included. Patient: Tara Arellano PCP: Andry Jean-Baptiste MD CC: hospital follow up HPI: Tara Arellano 67 year old male former 88-vlqb-oxdx smoker quitting in 2001 with PMH significant for PAD, chronic back pain, GERD, status post gastric bypass for bile acid reflux, migraine headaches, traumatic head injury, childhood asthma, [place] on BiPAP, HLD, COPD and emphysema by CT, granulomatous disease, lung nodules. Patient recently admitted to [facility] from 09/19 - 09/22 secondary to AECOPD [...] Comments Comment:hypotension Pneumococcal 23-Sinan* Swelling Comment:Localized swelling jyxclfdqcgd-hunajuaag-jbetxnmr (TRELEGY ELLIPTA) 100-62.5-25 mcg inhalation powder Inhale [...] pain. Max of three in a row yskimjesho-ntuarpve-zndnycinmy (BREZTRI AEROSPHERE) 160-9-4.8 mcg/actuation HFA aerosol inhaler [...] Teri Gross MD CXR 1 view, 09/20/2023 [facility] FINDINGS: There is no demonstrated pleural abnormality. [...] abdomen. Calcified splenic granulomas. Left renal cyst. Tower Cleaner (topogram) images: No additional findings. ASSESSMENT/PLAN: 1. [...] Jesus Oswald PA-C documented in this encounter [facility] 10-14-2023 Note HNO ID: [id number] Author: MARIA DE JESUS OSWALD PA-C Service: ? Author Type: Physician Curator [employer] Type: Progress Notes Filed: 10/14/2023 10:28 Note Text: Patient: Tara Arellano PCP: Andry Jean-Baptiste MD CC: hospital follow up HPI: Tara Arellano 67 year old male former 38-ggby-ttje smoker quitting in 2001 with PMH significant for PAD, chronic back pain, GERD, status post gastric bypass for bile acid reflux, migraine headaches, traumatic head injury, childhood asthma, [place] on BiPAP, HLD, COPD and emphysema by CT, granulomatous disease, lung nodules. Patient recently admitted to [facility] from 09/19 - 09/22 secondary to AECOPD [...] Comments Comment:hypotension Pneumococcal 23-Sinan* Swelling Comment:Localized swelling wiogsqcbgyb-vlbmphcsu-pianhnfc (TRELEGY ELLIPTA) 100-62.5-25 mcg inhalation powder Inhale [...] pain. Max of three in a row jdmplkcjsl-vcajltpd-unxbkldjgz (BREZTRI AEROSPHERE) 160-9-4.8 mcg/actuation HFA aerosol inhaler Inhale 2 Puffs as instructed two ti (more content not included)... [facility] 10-02-2023 Note HNO ID: [id number] Author: ANDRY JEAN-BAPTISTE MD Service: ? Author [...] those as below. Patient was seen at [facility] on 09/20/2023 with c/o shortness of [...] Hypertension Mother Colon (more content not included)... [facility] 05-24-2024 History of Present illness Narrative Chief Complaint Patient presents with: Hospital F/U HPI Tara Arellano is a 67 year old male who presents here today for Hospital Discharge Follow up.. Patient with hx of hyperlipidemia, [place], emphysema, GERD, elevated glucose, iron def, carotid disease, vit D, and those as below. Patient was seen at [facility] on 09/20/2023 with c/o shortness of [...] on File Prior to Visit Medication Sig xxsanpssmmn-wmkwjfsws-yqofunfp (TRELEGY ELLIPTA) 100-62.5-25 mcg inhalation powder Inhale [...] Take 1 tablet by mouth once daily. fsfzplayjg-nwkmdqiv-yopherjbmj (BREZTRI AEROSPHERE) 160-9-4.8 mcg/actuation HFA aerosol inhaler [...] 65+ Discontinued Data reviewed Hospital papers from [facility]. A/P ASSESSMENT/PLAN: 1. COPD exacerbation (HCC) [...] use of barrier creams. F/u next routine. Andry Jean-Baptiste MD documented in this encounter [facility] 09-23-2023 Note [facility] Medical Records Department [address] [place] [id number] Discharge Summary 09/23/23 0942 MR#: [id number] Acct: [id number] Name: TARA ARELLANO Rep #: [id number] : 1955 67 From: Toa Urena DO PCP: Dr. Andry Jean-Baptiste MD Status:DIS IN Location: [place] [address]1 Providers Date of Admission: 09/20/23 Date of [...] was seen in the emergency room at [facility] with complaints of shortness of breath x [...] exam 5/5 throughout. (more content not included)... [facility] 09-21-2023 Telephone encounter Note TC to patient who verbalized understanding of below. ANUJ Pollack [facility] 09-21-2023 Miscellaneous Notes TC to patient who verbalized understanding of below. ANUJ Pollack Please let patient know their xray is normal. documented in this encounter [facility] 09-21-2023 Telephone encounter Note Please let patient know their xray is normal. [facility] 09-21-2023 Telephone encounter Note Spoke to patient's , she was notified of results and verbalized understanding. states that patient is currently admitted to [facility] for RSV Radha Ramires MA [facility] 09-21-2023 Miscellaneous Notes Spoke to patient's , she was notified of results and verbalized understanding. states that patient is currently admitted to [facility] for RSV Radha Ramires MA Please let patient know covid/flu/rsv is negative. documented in this encounter [facility] 09-21-2023 Telephone encounter Note Please let patient know covid/flu/rsv is negative. [facility] 09-20-2023 Discharge summary Note Date/Time September 20, 2023 1:22pm [facility] Medical Records Department [address] [place] [address] Emergency Department Summary 09/20/23 MR#: [id number] Acct: [id number] Name: TARA ARELLANO Rep #:[id number] : 1955 67 From: Saray Hutchinson DO PCP: Dr. Andry Jean-Baptiste MD Status:ADM IN Location: [place] [address] HPI History of Present Illness Chief Complaint: [...] COPD. He does not wear home O2. [facility] Medical History Anxiety Arthritis Asthma Bilateral [...] leg Verified 09/20/23 13:02 weakness Family History Mother Diabetes CHF (congestive [...] 77.0 H Lymph % (Auto) 10.1 L Hutchinson % (Auto) 12.3 H Eos % (Auto) [...] failure, COPD exacerbation Disposition Disposition: Acute Care [facility] What to do if you have Problems For any increased pain, shortness of breath, bleeding, nausea or vomiting, chestpain, or any unexpected problems, contact your Primary Care Provider. Call [facility] ([phone]) or report to the closest Emergency Room. Call 911 if necessary. 09/20/23 1552 <Electronically signed by Saray Hutchinson DO> Cosigner Signature (if applicable): CC: Dr. Andry Jean-Baptiste MD ~ Signed [facility] Work Phone: [phone]) 930-876005-10-2024 History of Present illness Narrative* Ramon Christian, [...] PATIENT PRESENTS WITH AN IMPLANTABLE OR ATTACHED HAND STONE POLISHER: No RADIOLOGY DEPARTMENT: General X-ray: Exam(s) Completed: Chest X-Ray PERIPHERAL IV DATA: Not applicable SIGNED BY: HUGH Minaya) September 18, 2023 3:58 PM documented in this encounterBlanch[facility] NoteHNO ID: [id number] Author: RAMON CHRISTIAN RT(R) Service: Radiology Author [...] PATIENT PRESENTS WITH AN IMPLANTABLE OR ATTACHED HAND STONE POLISHER: No RADIOLOGY DEPARTMENT: General X-ray: Exam(s) Completed: Chest X-Ray PERIPHERAL IV DATA: Not applicable SIGNED BY: RT Marimar(Maria Elena) September 18, 2023 3:58 [facility]05-10-2024 NoteHNO ID: [id number] Author: LEW BIRD APRN.COUNTER CASER Service: ? Author Type: Nurse Practitioner Type: [...] on File Prior to Visit Medication Sig wfycrumigcu-ewkmrvhoo-zhossntw (TRELEGY ELLIPTA) 100-62.5-25 mcg inhalation powder Inhale [...] INSTRUCTED EVERY 6 HO (more content not included)...[facility]05-10-2024 History of Present illness Narrative* Lew Bird APRN.COUNTER CASER - 09/18/2023 3:10 PM EDT Chief Complaint [...] on File Prior to Visit Medication Sig zfyazoqjoyf-tlqnevyco-kmhiyola (TRELEGY ELLIPTA) 100-62.5-25 mcg inhalation powder Inhale [...] pain. Max of three in a row xusknjhcvu-nayvcnxp-zarfnoebnk (BREZTRI AEROSPHERE) 160-9-4.8 mcg/actuation HFA aerosol inhaler [...] MG/0.5 ML SOLUTION FOR NEBULIZATION Lew Bird APRN.COUNTER CASER documented in this encounterBlanch[facility]04[facility] Telephone encounter Note * Telephone Encounter - Noelle Boateng RN - 09/08/2023 3:22 PM EDT Patient wanting to switch to [facility]. Pharmacy electronically requests the following refill(s) Requested Prescriptions Pending Prescriptions Disp Refills hgswfkvrmaa-gthnmearx-fxjkbnkc (TRELEGY ELLIPTA) 100-62.5-25 mcg inhalation powder 1 Each 5 Sig: Inhale 1 Puff as instructed once daily. Noelle Boateng RN [facility]04-30-2024 Miscellaneous Notes* Telephone Encounter - Noelle Boateng RN - 09/08/2023 3:22 PM EDT Patient wanting to switch to [facility]. Pharmacy electronically requests the following refill(s) Requested Prescriptions Pending Prescriptions Disp Refills nascuekekrw-onthxucto-wvybawaw (TRELEGY ELLIPTA) 100-62.5-25 mcg inhalation powder 1 Each 5 Sig: Inhale 1 Puff as instructed once daily. Noelle Boateng RN documented in this encounterBlanchard Valley [facility]04-08-2024 Miscellaneous Notes* Telephone Encounter - Kendrick Julio [...] you. Kendrick Julio LPN. documented in this encounterBlanchard Valley Health [facility]03[facility] History of Present illness Narrative* Teri Gross MD - 07/23/2023 1:45 PM EDT Images from the original note were not included. . [facility] [place] Note Patient name: Tara Arellano PCP: Andry Jean-Baptiste MD CC: Follow-up chest imaging HPI: Tara Arellano 67 year old male former 11-nsta-fwix smoker quitting in 2001 with PMH significant [...] shows no change compared to CT obtained [facility]. He has been rather ill over the [...] k/uL 1.49 Monocytes % % 8.7 Abs Hutchinson <0.87 k/uL 0.54 Eosinophils % % 3.2 Abs Eosin <0.46 k/uL 0.20 Basophils % % 1.4 Abs Baso <0.11 k/uL 0.09 Immature Granulocytes % % 0.3 Abs Immature Gran <0.10 k/uL <0.03 NRBC /100 WBC 0.0 Absolute nRBC <0.01 k/uL <0.01 Diff Type Auto Imaging / Diagnostic Studies: DATE OF EXAM: Jun 16 2023 8:25AM [facility] - CT CHEST WO IVCON / EXAMINATION: [...] node Compared images to CT done at [facility]. No change or new findings PAST [...] Take 1 tablet by mouth once daily. vbrbicelqvw-kfkqgmdaa-gfujpaah (TRELEGY ELLIPTA) 100-62.5-25 mcg inhalation powder Inhale 1 Puff asinstructed once daily. ipratropium-albuterol (DUONEB) 0.5 mg-3 mg(2.5 mg base)/3 mL nebu Inhale 3 mL as instructed every 4hours as needed for wheezing/shortness of breath. ipnylaxyds-czbuiifb-iygulytfcb (BREZTRI AEROSPHERE) 160-9-4.8 mcg/actuation HFA aerosol inhaler [...] of smoking cessation Teri Gross MD [facility] [place] documented in this encounterBlanchard Valley [facility]02[facility] Miscellaneous Notes* Telephone Encounter - Teri Gross MD - 06/22/2023 4:13 PM EST Spoke to , Sola regarding chest CT results. Able to directly compare images from [facility] with recent image and there is no change. He will be due for follow-up CT in one year. documented in this encounterBlanchard Valley Health System [facility]02-08-2024 Miscellaneous Notes* Telephone Encounter - Gwen Okeefe [...] node. Chayo Rodríguez LPN documented in this encounterBlanchard Valley Health System [facility]02-07-2024 Miscellaneous Notes* Telephone Encounter - Teri Gross MD - 06/17/2023 5:20 PM EST Left voice mail message with results. The paratracheal node is likely due to granulomatous disease.I do not personally remember a nodule in the RUL on [facility] from [facility]. I will need to directly compare the films but will not have access until I return to [place] on Thursday. Left message thatI will call on Thursday. documented in this encounterBlanchard Valley Health System [facility]02-06-[facility] History of Present illness Narrative* Chayo Gomez [...] PATIENT PRESENTS WITH AN IMPLANTABLE OR ATTACHED HAND STONE POLISHER: No RADIOLOGY DEPARTMENT: CT; Exam(s) Completed: Chest PERIPHERAL IV DATA: Not applicable SIGNED BY: RT Shelton(R) June 16, 2023 4:10 PM documented in this encounterBlanchard Valley Health System [facility]12-21-2023 Miscellaneous Notes* Telephone Encounter - Zohaib Jalloh - 04/30/2023 11:56 AM EST Talked to patient and he verbally understands his recent labs were ok. Zohaib Dawood * Telephone Encounter - Andry Jean-Baptiste MD - 04/30/2023 11:28 AM EST Let pt know recent labs were ok. documented in this encounterBlanchard Valley Health System [facility]12-19-2023 History of Present illness Narrative* Billy Jacobs [...] 28, 2023 12:19 PM documented in this encounterBlanchard Valley Health System [facility]12-19-2023 Instructions* Patient Instructions* Andry Jean-Baptiste MD - 04/28/2023 11:53 AM EST Hold your calcium and iron tabs while your on the antibiotic for the 10 days. documented in this encounterBlanchard Valley Health System [facility]12-19-[facility] History of Present illness Narrative* Andry Jean-Baptiste [...] Take 1 tablet by mouth once daily. dvicaqluge-hkgphjmw-iedxbsouvw (BREZTRI AEROSPHERE) 160-9-4.8 mcg/actuation HFA aerosol inhaler [...] exam. Andry Jean-Baptiste MD documented in this encounterBlanchard Valley Health System [facility]12-07-[facility] History of Present illness Narrative* Teri Gross MD - 04/16/2023 3:15 PM EST Images from the original note were not included. . 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 He has exposure to inez and damp [...] of his CT of the chest from [facility] in February that shows mild emphysema in [...] by mouth three times daily as needed. 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 Willard [facility], Social history, family history and surgical history [...] as needed 2. Former cigarette smoker Former 63-usno-gobz smoker having quit in 2001 with sequelae of emphysema -Patient does not qualify for lung cancer screening based on duration of his smoking cessation -Continue abstinence 3. Groundglass opacity on chest imaging -Surveillance CT at 3 months to look for clearance Teri Gross MD [facility] [place] documented in this encounterBlanchard Valley Health System [facility]12-07-2023 Nurse Note* Gwen Okeefe LPN - 04/16/2023 3:01 PM EST Intake information documented in the prior visit with JOSEPH Butt today. documented in this encounterBlanchard Valley Health System [facility]12-05-2023 Miscellaneous Notes* Addendum Note - Lew Bird APRN.CNP - 04/14/2023 8:01 AM ESTAddended by: LEW BIRD on: 04/14/2023 08:01 AM Modules accepted: Orders documented in this encounterBlanchard Valley Health System [facility]12-05-2023 History of Present illness Narrative* Lew Bird [...] - CONSULT TO PULMONARY MEDICINE Lew Bird APRN.COUNTER CASER documented in this encounterBlanchard Valley Health System [facility]11-10-2023 Discharge summary Author Thor Oswald [facility] March 20, 2023 2:12pm Note Date/Time March 20, 2023 11:59am [facility] Medical Records Department [address] [place] [address] Emergency Department Summary 03/20/23 MR#: [id number] Acct: [id number] Name: TARA ARELLANO Rep #:[id number] : 1955 67 From: Thor Oswald MD [...] was seen here as well as the [facility] and diagnosed with pneumonia, placed on antibiotics [...] the time. It is nonlateralizing and nonradiating. [facility] Medical History Anxiety Arthritis Asthma Bilateral [...] leg Verified 02/09/23 12:34 weakness Family History Mother Diabetes CHF (congestive [...] superinfection and have him follow-up with his license issuer Dr. Dumas. Lab Data Attestation: I reviewed the patient's lab results. Labs: Laboratory Results - last 24 hr 03/20/23 12:13 WBC 6.7 RBC 4.31 L Hgb 13.3 Hct 40.1 MCV 93.0 MCH 30.9 MCHC 33.2 RDW Std Deviation 43.8 RDW Coeff of Dari 12.8 Plt Count 294 MPV 8.1 Immature Gran % (Auto) 2.500 H Neut % (Auto) 60.5 Lymph % (Auto) 22.7 Hutchinson % (Auto) 8.8 Eos % (Auto) 4.5 [...] your Primary Care Provider. Call [facility] ([phone]) or report to the closest Emergency Room. Call 911 if necessary. 03/20/23 1412 <Electronically signed by hTor Oswald MD> Cosigner Signature (if applicable): CC: Dr. Andry Jean-Baptiste MD; Dr. Kirk Dumas MD ~ Signed [facility] Work Phone: [phone]) 537-989111-10-2023 Miscellaneous Notes* Telephone Encounter - Sushma Castillo [...] evaluated. Sushma Castillo RN documented in this encounterBlanchard Valley Health System [facility]11-[facility]2023 Miscellaneous Notes* Telephone Encounter - Andry Jean-Baptiste [...] pt. Gina Floyd Ma documented in this encounterBlanchard Valley Health System [facility]11-03-2023 Miscellaneous Notes* Telephone Encounter - Carisa Kumar PA-C - 03/13/2023 8:05 AM EDT error documented in this encounterBlanchard Valley Health System [facility]10-13-[facility] History of Present illness Narrative* Lew Bird APRN.COUNTER CASER - 02/20/2023 2:10 PM EDT Chief Complaint Patient presents with: ED Follow-up: Pneumonia HPI Tara Arellano is a 67 year old male who presents here today for Above Complaints.. Patient presents for pneumonia follow up. Patient was initially on zpak then transitioned to doxycycline and augmentin. Patient reports he is feeling better and is long-term done with his antibiotics. Patient was also [...] completed. Lew Bird APRN.JEAN documented in this encounterBlanchard Valley Health System [facility]10-09-2023 Instructions* Patient Instructions* Eulalia Wells APRN.CNP - [...] stiffness, or feel confused. documented in this encounterBlanchard Valley Health System [facility]10-[facility] History of Present illness Narrative* Eulalia Wells [...] history is provided by the patient. No make up operator was used. Cough This is a new [...] ICD10: J18.9 Was treated and seen @ [facility] on 02/09/23 Reviewed imaging from [facility] CXR revealed right lower lobe pneumonia Patient was placed on Zpack Review of patients PMH and allergies, He really should have been prescribed dual coverage Will place him on Augmentin and Doxy He has appt for f/u with [facility] this Thursday RX Prednisone taper Eulalia Wells APRN.COUNTER CASER documented in this encounterBlanchard Valley Health System [facility]09-19-2023 Miscellaneous Notes* Telephone Encounter - Kendrick Julio LPN - 01/27/2023 9:01 AM EDT Patient phones requesting refills as follows: Requested Prescriptions Pending Prescriptions Disp Refills cholecalciferol, Vitamin D3, (VITAMIN D3) 1,250 mcg (50,000 unit) cap capsule 12 capsule 3 Sig: Take 1 capsule by mouth one time a week. [facility] 09/17/22 03/16/23 AMINA Please review and advise. Kendrick Julio LPN documented in this encounterBlanchard Valley Health System [facility]09-19-2023 Miscellaneous Notes* Telephone Encounter - Kendrick Julio LPN - 01/27/2023 9:00 AM EDT Patient phones requesting refills as follows: Requested Prescriptions Pending Prescriptions Disp Refills triamcinolone acetonide topical 0.5 % ointment 30 g 1 Sig: Apply to affected area twice daily. May use up to 2 weeks. [facility] 09/17/22 03/16/23 AMINA Please review and advise. Kendrick Julio LPN documented in this encounterBlanchard Valley Health System [facility]05-10-2023 Instructions* Patient Instructions* Gloria Chavez APRN.COUNTER CASER - 09/17/2022 12:11 PM EDT Start the triamcinolone ointment to the leg twice daily for up to two weeks. If still present, takea 1 week break, and then start using for two more weeks. documented in this encounterBlanchard Valley Health System [facility]05-10-20[facility] History of Present illness Narrative* Gloria Chavez [...] as needed for worsening/no improvement. Gloria Chavez APRN.COUNTER CASER documented in this encounterBlanchard Valley Health System [facility]04-28-2023 History of Present illness Narrative* Irma Perez [...] PANEL, NONFASTING 2. 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 Irma Perez PA-C documented in this encounterBlanchard Valley Health System [facility]03-06-2023 Instructions* Patient Instructions* Lew Bird APRN.CNP - 07/14/2022 9:25 AM EST Schedule with ENT Follow up as necessary documented in this encounterBlanchard Valley Health System [facility]03-06-20[facility] History of Present illness Narrative* Lew Bird [...] ENT Lew Bird APRN.CNP documented in this encounterBlanchard Valley Health System [facility]02-13-2023 Miscellaneous Notes* Telephone Encounter - Radha Ramires [...] needs diagnosis. Please advise documented in this encounterBlanchard Valley Health System [facility]01-16-2023 History of Present illness Narrative* Ronak Stauffer [...] 1.61 1.25 1.05 1.42 1.73 1.66 1.73 Hutchinson% % 9.2 6.8 13.4 8.6 6.4 6.3 9.9 Abs Hutchinson <0.87 k/uL 0.43 0.30 0.56 0.37 0.29 [...] Lymph 0.84 - 2.85 thou/cmm 1.22 Abs. Hutchinson 0.30 - 0.82 thou/cmm 0.32 Abs. Eosin [...] 4.00 k/uL 1.73 1.53 1.55 1.17 1.59 Hutchinson% % 9.9 8.4 7.1 7.7 9.9 Abs Hutchinson <0.87 k/uL 0.77 0.40 0.33 0.34 0.46 [...] No jaundice or rash. No petechiae. NEUROLOGIC: lead portfolio manager II-XII are grossly intact. No focal motor [...] with more than 50% of the total wofz-lt-zwmc time of the visit in reviewing test results, plan of care and coordination of care Ronak Stauffer DO documented in this encounterBlanchard Valley Health System [facility]01-05-2023 Instructions* Patient Instructions* Andry Jean-Baptiste MD - 05/15/2022 1:51 PM EST Tara take the Prednisone 20 mg two a day Thur (today), Thu, Thu, Thu and one on Mon. documented in this encounterBlanchard Valley Health System [facility]01-05-[facility] History of Present illness Narrative* Andry Jean-Baptiste [...] routine. Andry Jean-Baptiste MD documented in this encounterBlanchard Valley Health System [facility]12-22-2022 Miscellaneous Notes* Addendum Note - Radha Bishop APRN.CNP - 05/01/2022 3:00 PM ESTAddended by: RADHA BISHOP on: 05/01/2022 03:00 PM Modules accepted: Orders documented in this encounterBlanchard Valley Health System [facility]12-22-2022 History of Present illness Narrative* Radha Bishop [...] Patient agreeable to treatment plan. Radha Bishop APRN.COUNTER CASER documented in this encounterBlanchard Valley Health System [facility]12-06-2022 Instructions* Patient Instructions* Srinath Summers - 04/15/2022 8:42 AM EST Do not remove nail spicule Let it grow out Check circulation Once the nail grows out, I can then remove Monitor for any signs of redness or drainage as this can lead to ingrown documented in this encounterBlanchard Valley Health System [facility]12-[facility] History of Present illness Narrative* Srinath Summers [...] 10/11/2019 5.2 07/22/2019 5.1 01/28/2019 5.6 PCP: Andyr Jean-Baptiste MD PAST MEDICAL HISTORY Diagnosis Date [...] dremmel. Srinath Summers DPM Podiatry [address] [facility] [address] Dept: [phone] Dept * Suellen Wakefield RN - 04/15/2022 [...] back and bothering him. documented in this encounterBlanchard Valley Health System [facility]10-28-2022 Instructions* Patient Instructions* Andry Jean-Baptiste MD - 03/07/2022 8:08 AM EDT Consider getting the shingrix vaccine for the prevention of shingles from a local pharmacy Consider having alternates added to your power of trial attorney for health care formes. Please get labs done on or after 08/22/2022 prior to your next visit. We will try a new medication for lowering the bad cholesterol (LDL) called Zetia) documented in this encounterBlanchard Valley Health System [facility]10[facility]28[facility] History of Present illness Narrative* Andry Jean-Baptiste [...] 08/19/2016 Mild per study 07/30/2106, Sees Dr. Collzao. HAs BiPaP Peptic ulcer, unspecified site, unspecified [...] disectomy CHOLECYSTECTOMY 2003 COLONOSCOP W/ OR W/O [facility] SPEC 09/01/2018 Colonoscopy COLONOSCOP W/ OR W/O [facility] 10/23/2020 COLONOSCOPY 11/05/2011 repeat 10 yrs [...] Lymph 1.00 - 4.00 k/uL 1.53 1.17 Hutchinson% % 8.4 7.7 Abs Hutchinson <0.87 k/uL 0.40 0.34 Eosin% % 6.1 [...] Negative Negative Ketones, Urine Negative Negative Specific [place], Ur 1.005 - 1.030 1.017 Hemoglobin/Blood,Ur Negative [...] and regular exercise - Patient was counseled tuxx-rh-aimx by myself (the billing provider) for the [...] intake diet. 3. 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 12. Malabsorption syndrome - ICD9: [...] which included preparing to see the patient, bctm-ds-pwbn patient care, completing clinical documentation, performing a medically appropriate examination, counseling and educating the patient/family/caregiver and ordering medications, tests, or procedures. Andry Jean-Baptiste MD documented in this encounterBlanchard Valley Health System [facility]09-19[facility]2022 Miscellaneous Notes* Telephone Encounter - Andry Jean-Baptiste [...] advise. Kendrick Julio LPN documented in this encounterBlanchard Valley Health System [facility]07-07-2022 Miscellaneous Notes* Telephone Encounter - Radha Parmar LPN - 11/14/2021 4:29 PM EDT . [facility] of Present illness Narrative* Angelica Zurita APRN.COUNTER CASER - 11/13/2021 9:38 AM EDT Chief Complaint [...] 1.61 1.25 1.05 1.42 1.73 1.66 1.73 [place]% % 9.2 6.8 13.4 8.6 6.4 6.3 9.9 Abs [place] <0.87 k/uL 0.43 0.30 0.56 0.37 0.29 [...] Lymph 0.84 - 2.85 thou/cmm 1.22 Abs. [place] 0.30 - 0.82 thou/cmm 0.32 Abs. Eosin [...] 1.00 - 4.00 k/uL 1.73 1.53 1.55 [place]% % 9.9 8.4 7.1 Abs [place] <0.87 k/uL 0.77 0.40 0.33 Eosin% % [...] visit. Angelica Zurita APRN.JEAN documented in this encounterBl[facility] Miscellaneous Notes* Telephone Encounter - Radha Cosme MA - 10/29/2021 7:05 AM EDT Patient active MyChart. Patient notified via [employer] message. Radha Cosme MA * Telephone Encounter - Andry Jean-Baptiste MD - 10/28/2021 10:31 PM EDT Let patient know rib x-rays were ok. documented in this encounterBlanch[facility] History of Present illness Narrative* He Martin LPN - 10/29/2021 6:36 AM EDT Scan on 10/28/2021 4:20 PM by External Provider: Cardiac Cath documented in this encounterBlanch[facility] Miscellaneous Notes* Telephone Encounter - Brigitte Bishop [...] etc. Brigitte Bishop MA documented in this encounterBlanchard Valley [facility] History of Present illness Narrative* Nanette Whittaker [...] 24, 2021 11:56 AM documented in this encounterBlanchard Valley [facility] History of Present illness Narrative* Andry Jean-Baptiste [...] the remote past per Dr. Tovar in [place]. Left side of chest - upper - [...] 03/15/2019 Results NM CARDIAC PERF STRESS/PHARM (Order [id number]) Patient Info Patient Name Sex Tara Troncoso ([id number]) Male 1955 04/26/2021 2:57 PM - Radiology, [...] 60 minutes later. See administered doses below. [facility] Date of service: 04/26/2021 10:27:45 AM Indication: [...] evidence of scarring. Final Stress ECG Report: [facility] Date of service: 04/26/2021 10:27:45 AM Ordering physician: ANDRY JEAN-BAPTISTE Specialist: Racheal Anaya Curator [employer]: Radha Raygoza Stress ECG interpreting physician: Tristen [...] 139/55 mmHg. The double product achieved was [id number]. Indication: Chest pressure / Chest tightness Medical [...] / 55 mmHg Rate Pressure Product (RPP): [id number] Stress Exercise Observations: Reason for test termination: end of protocol Symptoms during test: SOB ST segment and T wave changes: No ST changes Arrhythmias: No arrhythmias Final Stress Crown Buffer Report: [facility] Date of service: 04/26/2021 10:27:45 AM Supervising physician: Tristen Fajardo DO PATIENT: Name: MR. TARA ARELLANO Age: 65 years Gender: M The supervising physician was present during the stress procedure. Final A/P ASSESSMENT/PLAN: 1. 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 Not changes in treatment at this time. documented in this encounterBlanchard Valley [facility]04[facility] Miscellaneous Notes* Addendum Note - Andry Jean-Baptiste [...] PM EDT Please print [facility] Teri Noonan Ma * Telephone Encounter [...] No Andry Jean-Baptiste MD documented in this encounterBl[facility] of Past illness Narrative* Problem Noted Date Resolved Date Hemorrhage of rectum and anus Diaphragmatic hernia with obstruction 01/13/2013 documented as of this encounter (statuses as of 09/03/2021) [facility] of [facility] illness Narrative* Problem Noted Date Resolved Date Hemorrhage of rectum and anus Diaphragmatic hernia with obstruction 01/13/2013 documented as of this encounter (statuses as of 09/05/2021) [facility] illness Narrative* Problem Noted Date Resolved Date Hemorrhage of rectum and anus Diaphragmatic hernia with obstruction 01/13/2013 documented as of this encounter (statuses as of 10/17/2021) [facility] illness Narrative* Problem Noted Date Resolved Date Hemorrhage of rectum and anus Diaphragmatic hernia with obstruction 01/13/2013 documented as of this encounter (statuses as of 10/24/2021) [facility] illness Narrative* Problem Noted Date Resolved Date Hemorrhage of rectum and anus Diaphragmatic hernia with obstruction 01/13/2013 documented as of this encounter (statuses as of 10/25/2021) [place] [address]-05-2013 History of Past illness Narrative* Problem Noted Date Resolved Date Hemorrhage of rectum and anus Diaphragmatic hernia with obstruction 01/13/2013 documented as of this encounter (statuses as of 10/29/2021) [facility] Narrative* Problem Noted Date Resolved Date Hemorrhage of rectum and anus Diaphragmatic hernia with obstruction 01/13/2013 documented as of this encounter (statuses as of 11/13/2021) [facility] Narrative* Problem Noted Date Resolved Date Hemorrhage of rectum and anus Diaphragmatic hernia with obstruction 01/13/2013 documented as of this encounter (statuses as of 11/14/2021) [facility] Narrative* Problem Noted Date Resolved Date Hemorrhage of rectum and anus Diaphragmatic hernia with obstruction 01/13/2013 documented as of this encounter (statuses as of 01/27/2022) [facility] Narrative* Problem Noted Date Resolved Date Hemorrhage of rectum and anus Diaphragmatic hernia with obstruction 01/13/2013 documented as of this encounter (statuses as of 03/07/2022) [facility] Narrative* Problem Noted Date Resolved Date Hemorrhage of rectum and anus Diaphragmatic hernia with obstruction 01/13/2013 documented as of this encounter (statuses as of 04/15/2022) [facility] Narrative* Problem Noted Date Resolved Date Hemorrhage of rectum and anus Diaphragmatic hernia with obstruction 01/13/2013 documented as of this encounter (statuses as of 05/02/2022) [facility] Narrative* Problem Noted Date Resolved Date Hemorrhage of rectum and anus Diaphragmatic hernia with obstruction 01/13/2013 documented as of this encounter (statuses as of 05/16/2022) [facility] Narrative* Problem Noted Date Resolved Date Hemorrhage of rectum and anus Diaphragmatic hernia with obstruction 01/13/2013 documented as of this encounter (statuses as of 05/16/2022) [facility] Narrative* Problem Noted Date Resolved Date Hemorrhage of rectum and anus Diaphragmatic hernia with obstruction 01/13/2013 documented as of this encounter (statuses as of 05/17/2022) [facility] Narrative* Problem Noted Date Resolved Date Hemorrhage of rectum and anus Diaphragmatic hernia with obstruction 01/13/2013 documented as of this encounter (statuses as of 05/24/2022) [facility] Narrative* Problem Noted Date Resolved Date Hemorrhage of rectum and anus Diaphragmatic hernia with obstruction 01/13/2013 documented as of this encounter (statuses as of 05/26/2022) [facility] Narrative* Problem Noted Date Resolved Date Hemorrhage of rectum and anus Diaphragmatic hernia with obstruction 01/13/2013 documented as of this encounter (statuses as of 06/23/2022) [facility] Narrative* Problem Noted Date Resolved Date Hemorrhage of rectum and anus Diaphragmatic hernia with obstruction 01/13/2013 documented as of this encounter (statuses as of 07/14/2022) [facility] Narrative* Problem Noted Date Resolved Date Hemorrhage of rectum and anus Diaphragmatic hernia with obstruction 01/13/2013 documented as of this encounter (statuses as of 09/05/2022) [facility] Narrative* Problem Noted Date Resolved Date Hemorrhage of rectum and anus Diaphragmatic hernia with obstruction 01/13/2013 documented as of this encounter (statuses as of 09/18/2022) [facility] Narrative* Problem Noted Date Diagnosed Date Resolved Date Hemorrhage of rectum and anus 01/13/2013 Diaphragmatic hernia with obstruction 01/13/2013 documented as of this encounter (statuses as of 01/27/2023) [facility] Narrative* Problem Noted Date Diagnosed Date Resolved Date Hemorrhage of rectum and anus 01/13/2013 Diaphragmatic hernia with obstruction 01/13/2013 documented as of this encounter (statuses as of 01/27/2023) [facility] Narrative* Problem Noted Date Diagnosed Date Resolved Date Hemorrhage of rectum and anus 01/13/2013 Diaphragmatic hernia with obstruction 01/13/2013 documented as of this encounter (statuses as of 02/17/2023) [facility] Narrative* Problem Noted Date Diagnosed Date Resolved Date Hemorrhage of rectum and anus 01/13/2013 Diaphragmatic hernia with obstruction 01/13/2013 documented as of this encounter (statuses as of 02/20/2023) [facility] Narrative* Problem Noted Date Diagnosed Date Resolved Date Hemorrhage of rectum and anus 01/13/2013 Diaphragmatic hernia with obstruction 01/13/2013 documented as of this encounter (statuses as of 03/13/2023) [facility] Narrative* Problem Noted Date Diagnosed Date Resolved Date Hemorrhage of rectum and anus 01/13/2013 Diaphragmatic hernia with obstruction 01/13/2013 documented as of this encounter (statuses as of 03/14/2023) [facility] Narrative* Problem Noted Date Diagnosed Date Resolved Date Hemorrhage of rectum and anus 01/13/2013 Diaphragmatic hernia with obstruction 01/13/2013 documented as of this encounter (statuses as of 03/20/2023) [facility] Narrative* Problem Noted Date Diagnosed Date Resolved Date Hemorrhage of rectum and anus 01/13/2013 Diaphragmatic hernia with obstruction 01/13/2013 documented as of this encounter (statuses as of 04/14/2023) [facility] Narrative* Problem Noted Date Diagnosed Date Resolved Date Hemorrhage of rectum and anus 01/13/2013 Diaphragmatic hernia with obstruction 01/13/2013 documented as of this encounter (statuses as of 04/16/2023) [facility] Narrative* Problem Noted Date Diagnosed Date Resolved Date Hemorrhage of rectum and anus 01/13/2013 Diaphragmatic hernia with obstruction 01/13/2013 documented as of this encounter (statuses as of 04/17/2023) [facility] Narrative* Problem Noted Date Diagnosed Date Resolved Date Hemorrhage of rectum and anus 01/13/2013 Diaphragmatic hernia with obstruction 01/13/2013 documented as of this encounter (statuses as of 04/29/2023) [facility] Narrative* Problem Noted Date Diagnosed Date Resolved Date Hemorrhage of rectum and anus 01/13/2013 Diaphragmatic hernia with obstruction 01/13/2013 documented as of this encounter (statuses as of 05/01/2023) [facility] Narrative* Problem Noted Date Diagnosed Date Resolved Date Hemorrhage of rectum and anus 01/13/2013 Diaphragmatic hernia with obstruction 01/13/2013 documented as of this encounter (statuses as of 06/17/2023) [facility] Narrative* Problem Noted Date Diagnosed Date Resolved Date Hemorrhage of rectum and anus 01/13/2013 Diaphragmatic hernia with obstruction 01/13/2013 documented as of this encounter (statuses as of 06/18/2023) [facility] Narrative* Problem Noted Date Diagnosed Date Resolved Date Hemorrhage of rectum and anus 01/13/2013 Diaphragmatic hernia with obstruction 01/13/2013 documented as of this encounter (statuses as of 06/22/2023) [facility] Narrative* Problem Noted Date Diagnosed Date Resolved Date Hemorrhage of rectum and anus 01/13/2013 Diaphragmatic hernia with obstruction 01/13/2013 documented as of this encounter (statuses as of 07/23/2023) [facility] Narrative* Problem Noted Date Diagnosed Date Resolved Date Hemorrhage of rectum and anus 01/13/2013 Diaphragmatic hernia with obstruction 01/13/2013 documented as of this encounter (statuses as of 08/17/2023) [facility] Diagnosis Bilateral carotid artery disease, unspecified type (HCC) documented in this encounter [facility]* Diagnosis 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- Primary Exertional chest pain Chest pain, unspecified Left hand pain Pain in limb Left-sided chest wall pain Painful respiration [facility] this encounter [facility]* Diagnosis Iron deficiency anemia secondary to inadequate dietary iron intake- Primary Malabsorption syndrome Unspecified intestinal malabsorption [facility] this encounter [facility]* Diagnosis Vitamin D deficiency Unspecified vitamin D deficiency documented in this encounter [facility]* Diagnosis Medicare annual wellness visit, initial- Primary Routine general medical examination at a [facility] care facility Mixed hyperlipidemia 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 Intractable chronic migraine [...] Mixed hyperlipidemia- Primary 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 Pulmonary emphysema, unspecified [...] of other medications documented in this encounter [facility]* Diagnosis Eczema, unspecified type- Primary documented in this encounter [facility]* Diagnosis Onset Date Resolution Status Abdominal discomfort chronic Abdominal discomfort chronic Difficulty swallowing [facility] Work Phone: Evaluation note* Diagnosis Vitamin D deficiency Unspecified vitamin D deficiency documented in this encounter [facility]* Diagnosis Eczema, unspecified type [facility] Diagnosis Pneumonia of right lung due to infectious organism, unspecified part of lung- Primary documented in this encounter [facility]* Diagnosis Community acquired pneumonia, unspecified laterality- Primary Pulmonary emphysema, unspecified emphysema type (HCC) [facility] noteNo assessment information availableWWilson Health Work Phone: Evaluation note* Diagnosis Chronic obstructive pulmonary disease, unspecified COPD type (HCC)- Primary Encounter for immunization Need for other specified prophylactic vaccination against single bacterial disease documented [facility] this encounter [facility]* Diagnosis Chronic obstructive pulmonary disease, unspecified COPD type (HCC) documented in this encounter [facility]* Diagnosis Asthma-COPD overlap syndrome- Primary Former cigarette smoker Personal history of tobacco use, presenting hazards to health Ground glass opacity present on imaging of lung documented in this encounter [facility]* Diagnosis URI, acute- Primary Acute upper respiratory infections of unspecified site SOB (shortness of breath) Shortness of breath Epigastric pain Abdominal pain, epigastric Left-sided chest pain documented in this encounter [facility]* Diagnosis Asthma-COPD overlap syndrome (HCC)- Primary Lung nodules Other nonspecific abnormal finding of lung field Granulomatous disease (HCC) Functional disorders of polymorphonuclear neutrophils Former cigarette smoker Personal history of tobacco use, presenting hazards to health [facility]* Diagnosis Eczema, unspecified type [facility]* Diagnosis URI, acute- Primary Acute upper respiratory infections of unspecified site Chronic obstructive pulmonary disease, unspecified COPD type (HCC) [facility] this encounter [facility]* Diagnosis Onset Date Resolution Status Hypoxemia acute Respiratory failure acute COPD exacerbation chronic [facility] Work Phone: Evaluation note* Diagnosis COPD exacerbation (HCC)- Primary Obstructive chronic bronchitis with exacerbation Pulmonary emphysema, unspecified emphysema type (HCC) Angular cheilitis Diseases of lips documented [facility] this encounter [facility]* Diagnosis Asthma-COPD overlap syndrome (HCC)- Primary Lung nodules Other nonspecific abnormal finding of lung field Granulomatous disease (HCC) Functional disorders of polymorphonuclear neutrophils Former cigarette smoker Personal history of tobacco use, presenting hazards to health [facility] this encounter [facility] Diagnosis Mixed hyperlipidemia- Primary Screening for depression Encounter for screening examination for other mental health and behavioral disorders 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 [place] (obstructive sleep [...] disorder of prostate documented in this encounter [facility]* Diagnosis Vitamin D deficiency Unspecified vitamin D deficiency [facility] this [facility] Diagnosis URI, acute Acute upper respiratory infections of unspecified site documented in this encounter [facility] Diagnosis URI, acute Acute upper respiratory infections of unspecified site SOB (shortness of breath) Shortness of breath [facility] this encounter [facility] Diagnosis Left-sided chest wall pain Painful respiration documented in this encounter [facility]* Diagnosis Pulmonary emphysema, unspecified emphysema type (HCC) documented in this encounter [facility]* Diagnosis Nocturnal leg cramps- Primary Sleep related leg cramps Encounter for immunization Need for other specified prophylactic vaccination against single bacterial disease [facility] this encounter [facility]* Diagnosis Eczema, unspecified type documented in this encounter [facility] Diagnosis 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 [facility] this encounter [facility] Diagnosis Lung nodules- Primary Other nonspecific abnormal finding of lung field documented in this encounter [facility]* Diagnosis Plantar fasciitis- Primary Plantar fascial fibromatosis documented in this encounter [facility]* Diagnosis Eczema, unspecified type documented in this encounter [facility] Diagnosis Pain Generalized pain [facility] Diagnosis Pulmonary emphysema, unspecified emphysema type (HCC) documented [facility] this encounter [facility]* Diagnosis Encounter for Medicare annual wellness exam- Primary Routine general medical examination at a health care facility Mixed hyperlipidemia Elevated fasting blood sugar Impaired fasting glucose GERD without esophagitis Esophageal reflux 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 Bilateral carotid artery [...] unspecified single disease [facility] in this encounter [facility]* Diagnosis Lung nodules Other nonspecific abnormal finding of lung field [facility] this encounter [facility]* Diagnosis Pneumonia of right upper lobe due to infectious organism- Primary [facility] Diagnosis Acute cough- Primary Wheezing Acute cough Wheezing documented in this encounter [facility] Diagnosis Acute cough Wheezing documented in this encounter [facility] Diagnosis Intractable chronic migraine without aura and without status migrainosus- Primary Chronic migraine without aura, with intractable migraine, so stated, without mention of status migrainosus Asthma-COPD overlap syndrome (HCC) 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 Pulmonary emphysema, unspecified emphysema type (HCC) [place] (obstructive sleep apnea) Obstructive sleep apnea (adult) (pediatric) GERD without esophagitis Esophageal reflux Migraine without aura, intractable, without status migrainosus documented in this encounter [facility] Diagnosis Asthma-COPD overlap syndrome (HCC)- Primary Lung nodules Other nonspecific abnormal finding of lung field Former cigarette smoker Personal history of tobacco use, presenting hazards to health Granulomatous disease (HCC) Functional disorders of polymorphonuclear neutrophils documented in this encounter [facility] Diagnosis Contusion of right upper arm, initial encounter- Primary documented in this encounter [facility] Diagnosis Asthma with COPD with exacerbation (HCC)- Primary Chronic obstructive asthma with exacerbation Acute bronchitis, unspecified organism Former cigarette smoker Personal history of tobacco use, presenting hazards to health documented in this encounter [facility] Outpatient Procedure (Routine) - Pending Review Specialty Diagnoses / Procedures Referred By Contac t Referred To [facility] Diagnoses 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 Exertional chest pain Procedures ECG COMPLETE ECG ROUTINE ECG W/LEAST 12 LDS W/I&[place] [address] [place] [id number] [facility] [address] [place] [address] Referral ID Status Reason Start Date Expiration Date Visits Requested Visits Authorized [id number] Pending Review Auto-Generat ed Referral 10/24/2021 10/24/2022 1 1 * Consult, Test, Treat (Routine) - Authorized Specialty Diagnoses / Procedures Referred By Tamekaac t Referred To Contact Cardiology Diagnoses 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 Exertional chest pain Procedures CONSULT TO CARDIOLOGY OFFICE/OUTPATIENT [facility] 60-74 MINUTES Andry Jean-Baptiste MD [address] [place] [address] Referral ID Status Reason Start Date Expiration Date Visits Requested Visits Authorized [id number] Authorized PCP Requested Referral 10/24/2021 10/24/2022 1 1 * Consult, Test, Treat (Routine) - Authorized Specialty Diagnoses / Procedures Referred By Contac t Referred To Contact Orthopedics Diagnoses Left hand pain Procedures CONSULT TO ORTHOPAEDICS OFFICE/OUTPATIENT [facility] 60-74 MINUTES Andry Jean-Baptiste MD [address] [place] [address] Referral ID Status Reason Start Date Expiration Date Visits Requested Visits Authorized [id number] Authorized PCP Requested Referral 10/24/2021 10/24/2022 1 1 * Diagnostic Procedure Only (Routine) - Closed Specialty Diagnoses / Procedures Referred By Contac t Referred To Contact XR IMAGING Diagnoses Left-sided chest wall pain Procedures XR RIBS/CHEST 3V AP RIB/OBLS/CXR LEFT RADEX RIBS UNI W/POSTEROANT CH MINIMUM 3 VIEWS Andry Jean-Baptiste MD [address] [place] [address] Xr Imaging Referral ID Status Reason Start Date Expiration Date V isits Requested Visits Authorized [id number] Closed Auto-Generate d Referral 10/24/2021 11/23/2022 1 1 [facility] for referral (narrative)* Outpatient Procedure (Routine) - Authorized Specialty Diagnoses / Procedures Referred By Contac t Referred To [facility] Diagnoses Ingrowing toenail Diminished pulses in lower extremity Procedures PVR ANK PRESS RAQUEL VAS LAB NON-INVAS PHYSIOLOGIC STD EXTREMITY ART 2 LEVEL Srinath Summers [address] [place] [address] [facility] [place] [address] [place] [address] Referral ID Status Reason Start Date Expiration Date Visits Requested Visits Authorized [id number] Authorized Auto-Generat ed Referral 04/15/2022 04/15/2023 1 1 [facility] for referral (narrative)* Diagnostic Procedure Only (Routine) - Authorized Specialty Diagnoses / Procedures Referred By Contac t Referred To Contact US IMAGING Diagnoses Epigastric pain Procedures US ABD RIGHT UPPER QUADRANT US ABDOMINAL REAL TIME W/IMAGE LIMITED Andry Jean-Baptiste MD [address] [place] [address] Us Imaging [facility] Referral ID Status Reason Start Date Expiration Date Visits Requested Visits Authorized [id number] Authorized Auto-Generat ed Referral 3 05/27/2024 1 1 [facility] for referral (narrative)* Outpatient Procedure (Routine) - Pending Review Specialty Diagnoses / Procedures Referred By Contac t Referred To Contact [facility] Diagnoses URI, acute Procedures ECG COMPLETE ECG ROUTINE ECG W/LEAST 12 LDS W/I&R Lew Bird APRN.[facility] [address] [place] [address] [facility] [address] [address] Referral ID Status Reason Start Date Expiration Date Visits Requested Visits Authorized [id number] Pending Review Auto-Generat ed Referral 09/18/2023 09/17/2024 1 1 [facility] for referral (narrative)* Diagnostic Procedure Only (Routine) - Closed Specialty Diagnoses / Procedures Referred By Contac t Referred To Contact XR IMAGING Diagnoses Left-sided chest wall pain Procedures XR RIBS/CHEST 3V AP RIB/OBLS/CXR LEFT RADEX RIBS UNI W/POSTEROANT CH MINIMUM 3 VIEWS Andry Jean-Baptiste MD [address] [place] [address] [place] [address] Referral ID Status Reason Start Date Expiration Date V isits Requested Visits Authorized [id number] Closed Auto-Generate d Referral 10/24/2021 11/23/2022 1 1 [facility] for referral (narrative)* Outpatient Procedure (Routine) - Authorized Specialty Diagnoses / Procedures Referred By Contac t Referred To Contact [facility] Diagnoses Bilateral carotid artery disease, unspecified type (HCC) Procedures US CAROTID ARTERIES RAQUEL VAS LAB DUPLEX SCAN EXTRACRANIAL ART COMPL BI STUDY Andry Jean-Baptiste MD [address] [place] [address] [facility] [address] [place] [address] Referral ID Status Reason Start Date Expiration Date Visits Requested Visits Authorized [id number] Authorized Auto-Generat ed Referral 06/15/2024 06/15/2025 1 1 [facility] for visit Narrative* Diagnostic Procedure Only (Routine) - Closed Specialty Diagnoses / Procedures Referred By Contac t Referred To Contact XR IMAGING Diagnoses Left-sided chest wall pain Procedures XR RIBS/CHEST 3V AP RIB/OBLS/CXR LEFT RADEX RIBS UNI W/POSTEROANT CH MINIMUM 3 VIEWS Andry Jean-Baptiste MD [address] [place] [address] [place] [address] Referral ID Status Reason Start Date Expiration Date V isits Requested Visits Authorized [id number] Closed Auto-Generate d Referral 10/24/2021 11/23/2022 1 1 [facility] for visit Narrative* Diagnostic Procedure Only (Routine) - Closed Specialty Diagnoses / Procedures Referred By Contac t Referred To Contact XR IMAGING Diagnoses Pain Procedures XR FOOT GENERAL 3V AP/LAT/OBL LEFT RADEX FOOT COMPLETE MINIMUM 3 VIEWS Srinath Summers [address] [address] [place] [address] Referral ID Status Reason Start Date Expiration Date V isits Requested Visits Authorized [id number] Closed Auto-Generate d Referral 04/19/2024 05/19/2025 1 1 [facility] Summary Purpose Family History No Family History [...] FoundDocuments on File Type Date Recorded 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 Advance Directive(s) 10/23/2020 11:55 AM Advance Directive(s) 10/05/2020 3:55 PM Advance Directive(s) 04/18/2019 5:45 AM Advance Directive(s) 10/25/2018 9:52 AM Advance Directive(s) 09/01/2018 8:41 AM Advance Directive(s) 07/06/2018 8:22 AM Documents on File Type Date Recorded 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 Advance Directive(s) 10/08/2021 12:26 PM Advance Directive(s) 10/23/2020 11:55 AM Advance Directive(s) 10/05/2020 3:55 PM Advance Directive(s) 04/18/2019 5:45 AM Advance Directive(s) 10/25/2018 9:52 AM Advance Directive(s) 09/01/2018 8:41 AM Advance Directive(s) 07/06/2018 8:22 AM Documents on File Type Date Recorded 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 Advance Directive(s) 10/08/2021 12:26 PM Advance Directive(s) 10/23/2020 11:55 AM Advance Directive(s) 10/05/2020 3:55 PM Advance Directive(s) 04/18/2019 5:45 AM Advance Directive(s) 10/25/2018 9:52 AM Advance Directive(s) 09/01/2018 8:41 AM Advance Directive(s) 07/06/2018 8:22 AM Documents on File Type Date Recorded 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 Advance Directive(s) 10/08/2021 12:26 PM Documents on File Type Date Recorded 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 Advance Directive(s) 10/08/2021 12:26 PM Advance Directive Response Recorded Date/ Time Name of Medical Power of Workers Compensation Manager August 28, 2022 12:06pm Advance Directives Yes October 28 11:13am Living Will Yes August 28, 2022 12:06pm Power of Workers Compensation Manager Yes August 28 12:06pm Advance Directive Response Recorded Date/ Time Name of Medical Power of Workers Compensation Manager February 09, 2023 12:31pm Name of Medical Power of Workers Compensation Manager March 20, 2023 12:33pm Advance Directives Yes October 28 10:13am Living Will Yes March 20 12:33pm Power of Workers Compensation Manager Yes March 20, 2023 12:33pm Advance Directive Response Recorded Date/ Time Name of Medical Power of Workers Compensation Manager February 09, 2023 12:31pm Name of Medical Power of Workers Compensation Manager March 20, 2023 12:33pm Advance Directives Yes October 28 10:13am Living Will No May 18 1:21pm Power of Workers Compensation Manager No May 18, 024 1:21pm Advance Directive Response Recorded Date/ Time Name of Medical Power of Workers Compensation Manager March 20, 2023 12:33pm Advance Directives Yes October 28 10:13am Living Will No May 18 1:21pm Power of Workers Compensation Manager No May 18 2 024 1:21pm Advance Directive Response Recorded Date/ Time Advance Directives Yes October 28 11:13am Living Will No September 20, 2023 1 :15pm Power of Workers Compensation Manager No September 20, 2023 1:15pm Reason for Referral Specialty Diagnoses / Procedures Referred By Contac t Referred To Contact Podiatry Diagnoses Nail problem Procedures CONSULT TO PODIATRY OFFICE/OUTPATIENT [facility] 60-[place] [address] [place] [address] Referral ID Status Reason Start Date Expiration Date Visits Requested Visits Authorized [id number] Authorized PCP Requested Referral 2 03/07/2023 1 1 Specialty Diagnoses / Procedures Referred By Conttamy t [place]erred [place] [address] [place] [address] Referral ID Status Reason Start Date Expiration Date Visits Re quested Visits Authorized [id number] Closed 1 1 Referral ID Status Reason Start Date Expiration Date Visits Re quested Visits Authorized [id number] Closed 1 1 Specialty Diagnoses / Procedures Referred By Contac t Referred To Contact Gastroenterology Diagnoses Malabsorption syndrome Procedures CONSULT TO GASTROENTEROLOGY Lew Bird APRN.[facility] [address] [place] [address] Friend, Jason Londono, [address] [address] Referral ID Status Reason Start Date Expiration Date Visits Requested Visits Authorized [id number] Ref Not Required PCP Requested Referral 06/23/2022 06/23/2023 1 1 Specialty Diagnoses / Procedures Referred By Contac t Referred To Contact Ent - Otolaryngology Diagnoses Oral polyp Procedures CONSULT TO ENT OFFICE/OUTPATIENT [facility] 60-74 MINUTES Lew Bird APRN.[facility] [address] [place] [address] Referral ID Status Reason Start Date Expiration Date Visits Requested Visits Authorized [id number] Authorized PCP Requested Referral 07/14/2022 07/14/2023 1 1 Specialty Diagnoses / Procedures Referred By Contac t Referred To Contact Diagnoses Pulmonary emphysema, unspecified emphysema type (HCC) Lew Bird APRN.[facility] [address] [place] [address] Referral ID Status Reason Start Date Expiration Date Visits Re quested Visits Authorized [id number] Closed 1 1 Specialty Diagnoses / Procedures Referred By Contac t Referred To Contact CT IMAGING Diagnoses Pneumonia of right lung due to infectious organism, unspecified part of lung Procedures CT CHEST WO IVCON DIAGNOSTIC COMPUTED TOMOGRAPHY THORAX W/O CNTRST Teri Gross MD [address] [place] [address] Ct Imaging [facility] Referral ID Status Reason Start Date Expiration Date Visits Requested Visits Authorized [id number] Pending Review Auto-Generat ed Referral 06/15/2023 05/15/2024 1 1 Specialty Diagnoses / Procedures Referred By Contac t Referred To Contact [facility] Diagnoses Chronic obstructive pulmonary disease, unspecified COPD type (HCC) Procedures LUNG DIFFUSION CAPACITY (DLCO) DIFFUSING CAPACITY Teri Gross MD [address] [place] [address] [facility] [place] [address] [place] [address] Referral ID Status Reason Start Date Expiration Date V isits Requested Visits Authorized [id number] Closed Auto-Generate d Referral 04/16/2023 05/15/2024 1 1 Specialty Diagnoses / Procedures Referred By Contac t Referred To Contact [facility] Diagnoses Chronic obstructive pulmonary disease, unspecified COPD type (HCC) Procedures SPIROMETRY WITH DILATOR IF OBSTRUCTED BRNCDILAT RSPSE SPMTRY PRE&POST-BRNCDILAT Teir Vang MD [address] [place] [address] [facility] [address] [facility] [place] [address] Referral ID Status Reason Start Date Expiration Date V isits Requested Visits Authorized [id number] Closed Auto-Generate d Referral 04/16/2023 05/15/2024 1 1 Referral ID Status Reason Start Date Expiration Date V isits Requested Visits Authorized [id number] Closed Auto-Generate d Referral 06/16/2023 07/16/2023 1 1 Specialty Diagnoses / Procedures Referred By Contac t Referred To Contact CT IMAGING Diagnoses Lung nodules Procedures CT CHEST WO IVCON DIAGNOSTIC COMPUTED TOMOGRAPHY THORAX W/O Maria De Jesus Peña PA-C [address] [place] [address] Ct Imaging [facility] Referral ID Status Reason Start Date Expiration Date Visits Requested Visits Authorized [id number] Pending Review Auto-Generat ed Referral 06/13/2024 11/12/2024 1 1 Specialty Diagnoses / Procedures Referred By Contac t Referred To Contact CT IMAGING Diagnoses Lung nodules Procedures CT CHEST WO IVCON DIAGNOSTIC COMPUTED TOMOGRAPHY THORAX W/O Teri Jara MD [address] [place] [address] [place] [address] Referral ID Status Reason Start Date Expiration Date Visits Requested Visits Authorized [id number] New Request Auto-Generat ed Referral 06/20/2024 06/16/2025 [...] section and content) DATE CREATED AUTHOR 11/03/2017 [facility] DATE CREATED AUTHOR AUTHOR'S ORGANIZ ATION 10/27/2019 [facility] DATE CREATED AUTHOR AUTHOR'S ORGANIZ ATION 05/01/2023 [facility] DATE CREATED AUTHOR AUTHOR'S ORGANIZ ATION 06/23/2023 [facility] DATE CREATED AUTHOR AUTHOR'S ORGANIZ ATION 07/25/2024 [facility] DATE CREATED AUTHOR AUTHOR'S ORGANIZ ATION 09/14/2024 [facility] Source Comments (unrecognize d section and content) In the event this informatio n is protected by the Federal Confidentiality of Alcohol and Drug Abuse Patient Records regulations: The Federal rules restrict any use of the information to criminally investigate or prosecute any alcohol or drug abuse patient.[facility] the event this information is protected by the Federal Confidentiality of Alcohol and Drug Abuse Patient Records regulations: The Federal rules restrict any use of the information to criminally investigate or prosecute any alcohol or drug abuse patient.[facility] the event this information is protected by the Federal Confidentiality of Alcohol and Drug Abuse Patient Records regulations: The Federal rules restrict any use of the information to criminally investigate or prosecute any alcohol or drug abuse patient.[facility] the event this information is protected by the Federal Confidentiality of Alcohol and Drug Abuse Patient Records regulations: The Federal rules restrict any use of the information to criminally investigate or prosecute any alcohol or drug abuse patient.[facility] the event this information is protected by the Federal Confidentiality of Alcohol and Drug Abuse Patient Records regulations: The Federal rules restrict any use of the information to criminally investigate or prosecute any alcohol or drug abuse patient.[facility] the event this information is protected by the Federal Confidentiality of Alcohol and Drug Abuse Patient Records regulations: The Federal rules restrict any use of the information to criminally investigate or prosecute any alcohol or drug abuse patient.[facility] the event this information is protected by the Federal Confidentiality of Alcohol and Drug Abuse Patient Records regulations: The Federal rules restrict any use of the information to criminally investigate or prosecute any alcohol or drug abuse patient.[facility] the event this information is protected by the Federal Confidentiality of Alcohol and Drug Abuse Patient Records regulations: The Federal rules restrict any use of the information to criminally investigate or prosecute any alcohol or drug abuse patient.[facility] the event this information is protected by the Federal Confidentiality of Alcohol and Drug Abuse Patient Records regulations: The Federal rules restrict any use of the information to criminally investigate or prosecute any alcohol or drug abuse patient.[facility] the event this information is protected by the Federal Confidentiality of Alcohol and Drug Abuse Patient Records regulations: The Federal rules restrict any use of the information to criminally investigate or prosecute any alcohol or drug abuse patient.[facility] the event this information is protected by the Federal Confidentiality of Alcohol and Drug Abuse Patient Records regulations: The Federal rules restrict any use of the information to criminally investigate or prosecute any alcohol or drug abuse patient.[facility] the event this information is protected by the Federal Confidentiality of Alcohol and Drug Abuse Patient Records regulations: The Federal rules restrict any use of the information to criminally investigate or prosecute any alcohol or drug abuse patient.[facility] the event this information is protected by the Federal Confidentiality of Alcohol and Drug Abuse Patient Records regulations: The Federal rules restrict any use of the information to criminally investigate or prosecute any alcohol or drug abuse patient.[facility] the event this information is protected by the Federal Confidentiality of Alcohol and Drug Abuse Patient Records regulations: The Federal rules restrict any use of the information to criminally investigate or prosecute any alcohol or drug abuse patient.[facility] the event this information is protected by the Federal Confidentiality of Alcohol and Drug Abuse Patient Records regulations: The Federal rules restrict any use of the information to criminally investigate or prosecute any alcohol or drug abuse patient.[facility] the event this information is protected by the Federal Confidentiality of Alcohol and Drug Abuse Patient Records regulations: The Federal rules restrict any use of the information to criminally investigate or prosecute any alcohol or drug abuse patient.[facility] the event this information is protected by the Federal Confidentiality of Alcohol and Drug Abuse Patient Records regulations: The Federal rules restrict any use of the information to criminally investigate or prosecute any alcohol or drug abuse patient.[facility] the event this information is protected by the Federal Confidentiality of Alcohol and Drug Abuse Patient Records regulations: The Federal rules restrict any use of the information to criminally investigate or prosecute any alcohol or drug abuse patient.[facility] the event this information is protected by the Federal Confidentiality of Alcohol and Drug Abuse Patient Records regulations: The Federal rules restrict any use of the information to criminally investigate or prosecute any alcohol or drug abuse patient.[facility] the event this information is protected by the Federal Confidentiality of Alcohol and Drug Abuse Patient Records regulations: The Federal rules restrict any use of the information to criminally investigate or prosecute any alcohol or drug abuse patient.[facility] the event this information is protected by the Federal Confidentiality of Alcohol and Drug Abuse Patient Records regulations: The Federal rules restrict any use of the information to criminally investigate or prosecute any alcohol or drug abuse patient.[facility] the event this information is protected by the Federal Confidentiality of Alcohol and Drug Abuse Patient Records regulations: The Federal rules restrict any use of the information to criminally investigate or prosecute any alcohol or drug abuse patient.[facility] the event this information is protected by the Federal Confidentiality of Alcohol and Drug Abuse Patient Records regulations: The Federal rules restrict any use of the information to criminally investigate or prosecute any alcohol or drug abuse patient.[facility] the event this information is protected by the Federal Confidentiality of Alcohol and Drug Abuse Patient Records regulations: The Federal rules restrict any use of the information to criminally investigate or prosecute any alcohol or drug abuse patient.[facility]In the event this information is protected by [...] or prosecute any alcohol or drug abuse patient.[facility]In the event this information is protected by the Federal Confidentiality of Alcohol and Drug Abuse Patient Records regulations: The Federal rules restrict any use of the information to criminally investigate or prosecute any alcohol or drug abuse patient.[facility] HospitalIn the event this information is protected by the Federal Confidentiality of Alcohol and Drug Abuse Patient Records regulations: The Federal rules restrict any use of the information to criminally investigate or prosecute any alcohol or drug abuse patient.[facility] HospitalIn the event this information is protected by the Federal Confidentiality of Alcohol and Drug Abuse Patient Records regulations: The Federal rules restrict any use of the information to criminally investigate or prosecute any alcohol or drug abuse patient.[facility] HospitalIn the event this information is protected by the Federal Confidentiality of Alcohol and Drug Abuse Patient Records regulations: The Federal rules restrict any use of the information to criminally investigate or prosecute any alcohol or drug abuse patient.[facility] HospitalIn the event this information is protected by the Federal Confidentiality of Alcohol and Drug Abuse Patient Records regulations: The Federal rules restrict any use of the information to criminally investigate or prosecute any alcohol or drug abuse patient.[facility] HospitalIn the event this information is protected by the Federal Confidentiality of Alcohol and Drug Abuse Patient Records regulations: The Federal rules restrict any use of the information to criminally investigate or prosecute any alcohol or drug abuse patient.[facility] HospitalIn the event this information is protected by the Federal Confidentiality of Alcohol and Drug Abuse Patient Records regulations: The Federal rules restrict any use of the information to criminally investigate or prosecute any alcohol or drug abuse patient.[facility] HospitalIn the event this information is protected by the Federal Confidentiality of Alcohol and Drug Abuse Patient Records regulations: The Federal rules restrict any use of the information to criminally investigate or prosecute any alcohol or drug abuse patient.[facility] HospitalIn the event this information is protected by the Federal Confidentiality of Alcohol and Drug Abuse Patient Records regulations: The Federal rules restrict any use of the information to criminally investigate or prosecute any alcohol or drug abuse patient.[facility] HospitalIn the event this information is protected by the Federal Confidentiality of Alcohol and Drug Abuse Patient Records regulations: The Federal rules restrict any use of the information to criminally investigate or prosecute any alcohol or drug abuse patient.[facility] HospitalIn the event this information is protected by the Federal Confidentiality of Alcohol and Drug Abuse Patient Records regulations: The Federal rules restrict any use of the information to criminally investigate or prosecute any alcohol or drug abuse patient.[facility] HospitalIn the event this information is protected by the Federal Confidentiality of Alcohol and Drug Abuse Patient Records regulations: The Federal rules restrict any use of the information to criminally investigate or prosecute any alcohol or drug abuse patient.[facility] HospitalIn the event this information is protected by the Federal Confidentiality of Alcohol and Drug Abuse Patient Records regulations: The Federal rules restrict any use of the information to criminally investigate or prosecute any alcohol or drug abuse patient.[facility] HospitalIn the event this information is protected by the Federal Confidentiality of Alcohol and Drug Abuse Patient Records regulations: The Federal rules restrict any use of the information to criminally investigate or prosecute any alcohol or drug abuse patient.[facility] HospitalIn the event this information is protected by the Federal Confidentiality of Alcohol and Drug Abuse Patient Records regulations: The Federal rules restrict any use of the information to criminally investigate or prosecute any alcohol or drug abuse patient.[facility] HospitalIn the event this information is protected by the Federal Confidentiality of Alcohol and Drug Abuse Patient Records regulations: The Federal rules restrict any use of the information to criminally investigate or prosecute any alcohol or drug abuse patient.[facility] HospitalIn the event this information is protected by the Federal Confidentiality of Alcohol and Drug Abuse Patient Records regulations: The Federal rules restrict any use of the information to criminally investigate or prosecute any alcohol or drug abuse patient.[facility] HospitalIn the event this information is protected by the Federal Confidentiality of Alcohol and Drug Abuse Patient Records regulations: The Federal rules restrict any use of the information to criminally investigate or prosecute any alcohol or drug abuse patient.[facility] HospitalIn the event this information is protected by the Federal Confidentiality of Alcohol and Drug Abuse Patient Records regulations: The Federal rules restrict any use of the information to criminally investigate or prosecute any alcohol or drug abuse patient.[facility] HospitalIn the event this information is protected by the Federal Confidentiality of Alcohol and Drug Abuse Patient Records regulations: The Federal rules restrict any use of the information to criminally investigate or prosecute any alcohol or drug abuse patient.[facility] HospitalIn the event this information is protected by the Federal Confidentiality of Alcohol and Drug Abuse Patient Records regulations: The Federal rules restrict any use of the information to criminally investigate or prosecute any alcohol or drug abuse patient.[facility] HospitalIn the event this information is protected by the Federal Confidentiality of Alcohol and Drug Abuse Patient Records regulations: The Federal rules restrict any use of the information to criminally investigate or prosecute any alcohol or drug abuse patient.[facility] HospitalIn the event this information is protected by the Federal Confidentiality of Alcohol and Drug Abuse Patient Records regulations: The Federal rules restrict any use of the information to criminally investigate or prosecute any alcohol or drug abuse patient.[facility] HospitalIn the event this information is protected by the Federal Confidentiality of Alcohol and Drug Abuse Patient Records regulations: The Federal rules restrict any use of the information to criminally investigate or prosecute any alcohol or drug abuse patient.[facility] HospitalIn the event this information is protected by the Federal Confidentiality of Alcohol and Drug Abuse Patient Records regulations: The Federal rules restrict any use of the information to criminally investigate or prosecute any alcohol or drug abuse patient.[facility] HospitalIn the event this information is protected by the Federal Confidentiality of Alcohol and Drug Abuse Patient Records regulations: The Federal rules restrict any use of the information to criminally investigate or prosecute any alcohol or drug abuse patient.[facility] HospitalIn the event this information is protected by the Federal Confidentiality of Alcohol and Drug Abuse Patient Records regulations: The Federal rules restrict any use of the information to criminally investigate or prosecute any alcohol or drug abuse patient.[facility] HospitalIn the event this information is protected by the Federal Confidentiality of Alcohol and Drug Abuse Patient Records regulations: The Federal rules restrict any use of the information to criminally investigate or prosecute any alcohol or drug abuse patient.[facility] HospitalIn the event this information is protected by the Federal Confidentiality of Alcohol and Drug Abuse Patient Records regulations: The Federal rules restrict any use of the information to criminally investigate or prosecute any alcohol or drug abuse patient.[facility] HospitalIn the event this information is protected by the Federal Confidentiality of Alcohol and Drug Abuse Patient Records regulations: The Federal rules restrict any use of the information to criminally investigate or prosecute any alcohol or drug abuse patient.[facility] HospitalIn the event this information is protected by the Federal Confidentiality of Alcohol and Drug Abuse Patient Records regulations: The Federal rules restrict any use of the information to criminally investigate or prosecute any alcohol or drug abuse patient.[facility] HospitalIn the event this information is protected by the Federal Confidentiality of Alcohol and Drug Abuse Patient Records regulations: The Federal rules restrict any use of the information to criminally investigate or prosecute any alcohol or drug abuse patient.[facility] HospitalIn the event this information is protected by the Federal Confidentiality of Alcohol and Drug Abuse Patient Records regulations: The Federal rules restrict any use of the information to criminally investigate or prosecute any alcohol or drug abuse patient.[facility] HospitalIn the event this information is protected by the Federal Confidentiality of Alcohol and Drug Abuse Patient Records regulations: The Federal rules restrict any use of the information to criminally investigate or prosecute any alcohol or drug abuse patient.[facility] HospitalIn the event this information is protected by the Federal Confidentiality of Alcohol and Drug Abuse Patient Records regulations: The Federal rules restrict any use of the information to criminally investigate or prosecute any alcohol or drug abuse patient.[facility] HospitalIn the event this information is protected by the Federal Confidentiality of Alcohol and Drug Abuse Patient Records regulations: The Federal rules restrict any use of the information to criminally investigate or prosecute any alcohol or drug abuse patient.[facility] HospitalIn the event this information is protected by the Federal Confidentiality of Alcohol and Drug Abuse Patient Records regulations: The Federal rules restrict any use of the information to criminally investigate or prosecute any alcohol or drug abuse patient.[facility] HospitalIn the event this information is protected by the Federal Confidentiality of Alcohol and Drug Abuse Patient Records regulations: The Federal rules restrict any use of the information to criminally investigate or prosecute any alcohol or drug abuse patient.[facility] HospitalIn the event this information is protected by the Federal Confidentiality of Alcohol and Drug Abuse Patient Records regulations: The Federal rules restrict any use of the information to criminally investigate or prosecute any alcohol or drug abuse patient.[facility] HospitalIn the event this information is protected by the Federal Confidentiality of Alcohol and Drug Abuse Patient Records regulations: The Federal rules restrict any use of the information to criminally investigate or prosecute any alcohol or drug abuse patient.[facility] HospitalIn the event this information is protected by the Federal Confidentiality of Alcohol and Drug Abuse Patient Records regulations: The Federal rules restrict any use of the information to criminally investigate or prosecute any alcohol or drug abuse patient.[facility] HospitalIn the event this information is protected by the Federal Confidentiality of Alcohol and Drug Abuse Patient Records regulations: The Federal rules restrict any use of the information to criminally investigate or prosecute any alcohol or drug abuse patient.[facility] HospitalIn the event this information is protected by the Federal Confidentiality of Alcohol and Drug Abuse Patient Records regulations: The Federal rules restrict any use of the information to criminally investigate or prosecute any alcohol or drug abuse patient.[facility] HospitalIn the event this information is protected by the Federal Confidentiality of Alcohol and Drug Abuse Patient Records regulations: The Federal rules restrict any use of the information to criminally investigate or prosecute any alcohol or drug abuse patient.[facility] HospitalIn the event this information is protected by the Federal Confidentiality of Alcohol and Drug Abuse Patient Records regulations: The Federal rules restrict any use of the information to criminally investigate or prosecute any alcohol or drug abuse patient.[facility] HospitalIn the event this information is protected by the Federal Confidentiality of Alcohol and Drug Abuse Patient Records regulations: The Federal rules restrict any use of the information to criminally investigate or prosecute any alcohol or drug abuse patient.[facility] HospitalIn the event this information is protected by the Federal Confidentiality of Alcohol and Drug Abuse Patient Records regulations: The Federal rules restrict any use of the information to criminally investigate or prosecute any alcohol or drug abuse patient.[facility] HospitalIn the event this information is protected by the Federal Confidentiality of Alcohol and Drug Abuse Patient Records regulations: The Federal rules restrict any use of the information to criminally investigate or prosecute any alcohol or drug abuse patient.[facility] HospitalIn the event this information is protected by [...] or prosecute any alcohol or drug abuse patient.[facility] HospitalIn the event this information is protected by the Federal Confidentiality of Alcohol and Drug Abuse Patient Records regulations: The Federal rules restrict any use of the information to criminally investigate or prosecute any alcohol or drug abuse patient.[facility] HospitalIn the event this information is protected by the Federal Confidentiality of Alcohol and Drug Abuse Patient Records regulations: The Federal rules restrict any use of the information to criminally investigate or prosecute any alcohol or drug abuse patient.[facility] HospitalIn the event this information is protected by the Federal Confidentiality of Alcohol and Drug Abuse Patient Records regulations: The Federal rules restrict any use of the information to criminally investigate or prosecute any alcohol or drug abuse patient.[facility] HospitalIn the event this information is protected by the Federal Confidentiality of Alcohol and Drug Abuse Patient Records regulations: The Federal rules restrict any use of the information to criminally investigate or prosecute any alcohol or drug abuse patient.[facility] HospitalIn the event this information is protected by the Federal Confidentiality of Alcohol and Drug Abuse Patient Records regulations: The Federal rules restrict any use of the information to criminally investigate or prosecute any alcohol or drug abuse patient.[facility] HospitalIn the event this information is protected by the Federal Confidentiality of Alcohol and Drug Abuse Patient Records regulations: The Federal rules restrict any use of the information to criminally investigate or prosecute any alcohol or drug abuse patient.[facility] Care Teams (unrecognized sec tion and content) 911 Telecommunicator Relationship Specialty Start Date End Date Andry Jean-Baptiste MD [address] [place] [address] PCP - General Family Practice 12/14/15 911 Telecommunicator Relationship Specialty Start Date End Date Andry Jean-Baptiste MD [address] [place] [address] PCP - General Family Practice 12/14/15 911 Telecommunicator Relationship Specialty Start Date End Date Andry Jean-Baptiste MD [facility] [place] [address] PCP - General Family Practice 12/14/15 911 Telecommunicator Relationship Specialty Start Date End Date Andry Jean-Baptiste MD [address] [place] [address], [place] [address] PCP - General Family Practice 12/14/15 911 Telecommunicator Relationship Specialty Start Date End Date Andry Jean-Baptiste MD [address] [place] [address] [place] [address] PCP - General Family Practice 12/14/15 911 Telecommunicator Relationship Specialty Start Date End Date Andry Jean-Baptiste MD [address] [place] [address] [place] [address] PCP - General Family Practice 12/14/15 911 Telecommunicator Relationship Specialty Start Date End Date Andry Jean-Baptiste MD [address] [place] [address] [place] [address] PCP - General Family Practice 12/14/15 911 Telecommunicator Relationship Specialty Start Date End Date Andry Jean-Baptiste MD [address] [place] [address] [place] [address] PCP - General Family Practice 12/14/15 911 Telecommunicator Relationship Specialty Start Date End Date Andry Jean-Baptiste MD [address] [place] [address], [place] [address] PCP - General Family Medicine 12/14/15 911 Telecommunicator Relationship Specialty Start Date End Date Andry Jean-Baptiste MD [address] [place] [address] [place] [address] PCP - General Family Medicine 12/14/15 911 Telecommunicator Relationship Specialty Start Date End Date Andry Jean-Baptiste MD [address] [facility] [place] [address] PCP - General Family Medicine 12/14/15 911 Telecommunicator Relationship Specialty Start Date End Date Andry Jean-Baptiste MD [address] [facility] [place] [address] PCP - General Family Medicine 12/14/15 911 Telecommunicator Relationship Specialty Start Date End Date Andry Jean-Baptiste MD 0 [facility] [place] [address] PCP - General Family Medicine 12/14/15 911 Telecommunicator Relationship Specialty Start Date End Date Andry Jean-Baptiste MD 0 [facility] [place] [address] PCP - General Family Medicine 12/14/15 911 Telecommunicator Relationship Specialty Start Date End Date Andry Jean-Baptiste MD 0 [facility] [place] [address] PCP - General Family Medicine 12/14/15 911 Telecommunicator Relationship Specialty Start Date End Date Andry Jean-Baptiste MD 0 [facility] [place] [address] PCP - General Family Medicine 12/14/15 911 Telecommunicator Relationship Specialty Start Date End Date Andry Jean-Baptiste MD 0 [facility] [place] [address] PCP - General Family Medicine 12/14/15 911 Telecommunicator Relationship Specialty Start Date End Date Andry Jean-Baptiste MD 0 [facility] [place] [address] PCP - General Family Medicine 12/14/15 911 Telecommunicator Relationship Specialty Start Date End Date Andry Jean-Baptiste MD 0 [facility] [place] [address] PCP - General Family Medicine 12/14/15 Team [...] MD Attending Provider, Referrin g Provider Active 911 Telecommunicator Relationship Specialty Start Date End Date Andry Jean-Baptiste MD [address] [place] [address] PCP - General Family Medicine 12/14/15 911 Telecommunicator Relationship Specialty Start Date End Date Andry Jean-Baptiste MD [address] [place] [address] PCP - General Family Medicine 12/14/15 911 Telecommunicator Relationship Specialty Start Date End Date Andry Jean-Baptiste MD [address] [place] [address] PCP - General Family Medicine 12/14/15 911 Telecommunicator Relationship Specialty Start Date End Date Andry Jean-Baptiste MD [address] [place] [address] PCP - General Family Medicine 12/14/15 911 Telecommunicator Relationship Specialty Start Date End Date Andry Jean-Baptiste MD [address] [place] [address] PCP - General Family Medicine 12/14/15 911 Telecommunicator Relationship Specialty Start Date End Date Andry Jean-Baptiste MD [address] [place] [address] PCP - General Family Medicine 12/14/15 Team Status: Inactive Member Role Status Dates Dr. Andry Jean-Baptiste MD Primary Care Provider Active Dr. Maycol Olivares MD Attending Provider, Emergency Pro vider Active Team Status: Inactive Member Role Status Dates Dr. Andry Jean-Baptiste MD Primary Care Provider Active Dr. Thor Oswald MD Emergency Provider Active 911 Telecommunicator Relationship Specialty Start Date End Date Andry Jean-Baptiste MD [address] [place] [address] PCP - General Family Medicine 12/14/15 911 Telecommunicator Relationship Specialty Start Date End Date Andry Jean-Baptiste MD [address] [place] [address] PCP - General Family Medicine 12/14/15 911 Telecommunicator Relationship Specialty Start Date End Date Andry Jean-Baptiste MD [address] [place] [address] PCP - General Family Medicine 12/14/15 911 Telecommunicator Relationship Specialty Start Date End Date Andry Jean-Baptiste MD [address] [place] [address] PCP - General Family Medicine 12/14/15 Team [...] DO Attending Provider, Emergency Dylan adames Active 911 Telecommunicator Relationship Specialty Start Date End Date Andry Jean-Baptiste MD [address] [place] [address] PCP - General Family Medicine 12/14/15 911 Telecommunicator Relationship Specialty Start Date End Date Andry Jean-Baptiste MD [address] [place] [address] PCP - General Family Medicine 12/14/15 911 Telecommunicator Relationship Specialty Start Date End Date Andry Jean-Baptiste MD [address] [place] [address] PCP - General Family Medicine 12/14/15 911 Telecommunicator Relationship Specialty Start Date End Date Andry Jean-Baptiste MD [address] [place] [address] PCP - General Family Medicine 12/14/15 911 Telecommunicator Relationship Specialty Start Date End Date Andry Jean-Baptiste MD [address] [place] [address] PCP - General Family Medicine 12/14/15 911 Telecommunicator Relationship Specialty Start Date End Date Andry Jean-Baptiste MD [address] [place] [address] PCP - General Family Medicine 12/14/15 Team Status: Active Member Role Status Dates Dr. Andry Jean-Baptiste MD Primary Care Provider Active Dr. Saray Hutchinson , DO Emergency Provider Active Dr. Dutch Garnett , DO Admit Provider, Attending Provider Active 911 Telecommunicator Relationship Specialty Start Date End Date Andry Jean-Baptiste MD [address] [place] [address] PCP - General Family Medicine 12/14/15 911 Telecommunicator Relationship Specialty Start Date End Date Andry Jean-Baptiste MD [address] [place] [address] PCP - General Family Medicine 12/14/15 911 Telecommunicator Relationship Specialty Start Date End Date Andry Jean-Baptiste MD [address] [place] [address] PCP - General Family Medicine 12/14/15 911 Telecommunicator Relationship Specialty Start Date End Date Andry Jena-Baptiste MD [address] [place] [address] PCP - General Family Medicine 12/14/15 911 Telecommunicator Relationship Specialty Start Date End Date Andry Jean-Baptitse MD [address] [place] [address] PCP - General Family Medicine 12/14/15 911 Telecommunicator Relationship Specialty Start Date End Date Andry Jean-Baptiste MD [address] [place] [address] PCP - General Family Medicine 12/14/15 Lew Bird APRN.COUNTER CASER [address] [place] [address] Optical Laboratory Manager Family Medicine 04/16/24 Irma Perez PA-C [address] [place] [address] Optical Laboratory Manager Family Medicine 04/16/24 911 Telecommunicator Relationship Specialty Start Date End Date Andry Jean-Baptiste MD [address] [place] [address] PCP - General Family Medicine 12/14/15 Lew Bird APRN.COUNTER CASER [address] [place] [address] Optical Laboratory Manager Family Medicine 04/16/24 Irma Perez PA-C [address] [place] [address] Optical Laboratory Manager Family [facility] 04/16/24 911 Telecommunicator Relationship Specialty Start Date End Date Andry Jean-Baptiste MD [address] [place] [address] PCP - General Family Medicine 12/14/15 Lew Bird, CATIA.COUNTER CASER [address] [place] [address] Optical Laboratory Manager Family Medicine 04/16/24 Irma Perez PA-C [address] [place] [address] [facility] 04/16/24 911 Telecommunicator Relationship Specialty Start Date End Date Andry Jean-Baptiste MD [address] [place] [address] PCP - General Family Medicine 12/14/15 Lew Bird, SPECTROGRAPH OPERATOR.COUNTER CASER [address] [place] [address] Optical Laboratory Manager Family Medicine 04/16/24 Irma Perez PA-C [address] [place] [address] Optical Laboratory Manager Family Medicine 04/16/24 911 Telecommunicator Relationship Specialty Start Date End Date Andry Jean-Baptiste MD [address] [facility] [place] [address] PCP - General Family Medicine 12/14/15 Lew Bird, CATIA.COUNTER CASER [address] [facility] [place] [address] Optical Laboratory Manager Family Medicine 04/16/24 Irma Perez PA-C [address] [facility] [place] [address] Optical Laboratory Manager Family Medicine 04/16/24 911 Telecommunicator Relationship Specialty Start Date End Date Andry Jean-Baptiste MD [address] [facility] [place] [address] PCP - General Family Medicine 12/14/15 Lew Bird, SPECTROGRAPH OPERATOR.COUNTER CASER [address] [facility] [place] [address] Optical Laboratory Manager Family Medicine 04/16/24 Irma Perez PA-C [address] [facility] [place] [address] Optical Laboratory Manager Family Medicine 04/16/24 911 Telecommunicator Relationship Specialty Start Date End Date Andry Jean-Baptiste MD [address] [facility] [place] [address] PCP - General Family Medicine 12/14/15 Lew Bird APRN.COUNTER CASER [address] [facility] [place] [address] Optical Laboratory Manager Family Medicine 04/16/24 Irma Perez PA-C [address] [facility] [place] [address] Optical Laboratory Manager Family Medicine 04/16/24 911 Telecommunicator Relationship Specialty Start Date End Date Andry Jean-Baptiste MD [address] [place] [address] PCP - General Family Medicine 12/14/15 Lew Bird APRN.COUNTER CASER [address] [place] [address] Optical Laboratory Manager Family Medicine 04/16/24 Irma Perez PA-C [address] [place] [address] [facility] 04/16/24 911 Telecommunicator Relationship Specialty Start Date End Date Andry Jean-Baptiste MD [address] [place] [address] PCP - General Family Medicine 12/14/15 Lew Bird APRN.COUNTER CASER [address] [place] [address] Optical Laboratory Manager Family Medicine 04/16/24 Irma Perez PA-C [address] [place] [address] Optical Laboratory Manager Family Medicine 04/16/24 911 Telecommunicator Relationship Specialty Start Date End Date Andry Jean-Baptiste MD [address] [place] [address] PCP - General Family Medicine 12/14/15 Lew Bird APRN.COUNTER CASER [address] [place] [address] Optical Laboratory Manager Family Medicine 04/16/24 Irma Perez PA-C [address] [place] [address] Optical Laboratory Manager Family Medicine 04/16/24 911 Telecommunicator Relationship Specialty Start Date End Date Andry Jean-Baptiste MD [address] [place] [address] PCP - General Family Medicine 12/14/15 Lew Bird APRN.COUNTER CASER [address] [place] [address] Optical Laboratory Manager Family Medicine 04/16/24 Irma Perez PA-C [address] [place] [address] Optical Laboratory Manager Family [facility] 04/16/24 911 Telecommunicator Relationship Specialty Start Date End Date Andry Jean-Baptiste MD [address] [place] [address] PCP - General Family Medicine 08/15/24 Lew Bird APRN.COUNTER CASER [address] [place] [address] Optical Laboratory Manager Family Medicine 04/16/24 Irma Perez PA-C [address] [place] [address] Optical Laboratory Manager Family Medicine 04/16/24 911 Telecommunicator Relationship Specialty Start Date End Date Andry Jean-Baptiste MD [address] [place] [address] PCP - General Family Medicine 08/15/24 Lew Bird APRN.COUNTER CASER [address] [place] [address] Optical Laboratory Manager Family Medicine 04/16/24 Irma Perez PA-C [address] [place] [address] Optical Laboratory Manager Family Medicine 04/16/24 911 Telecommunicator Relationship Specialty Start Date End Date Andry Jean-Baptiste MD [address] [place] [address] PCP - General Family Medicine 08/15/24 Lew Bird APRN.COUNTER CASER [address] [place] [address] Optical Laboratory Manager Family Medicine 04/16/24 Irma Perez PA-C [address] [place] [address] Optical Laboratory Manager Family Medicine 04/16/24 911 Telecommunicator Relationship Specialty Start Date End Date Andry Jean-Baptiste MD [address] [place] [address] PCP - General Family Medicine 08/15/24 Lew Bird APRN.COUNTER CASER [facility] [place] [address] Optical Laboratory Manager Family Medicine 04/16/24 Irma Perez PA-C [address] [place] [address] Optical Laboratory Manager Family Medicine 04/16/24 911 Telecommunicator Relationship Specialty Start Date End Date Andry Jean-Baptiste MD [address] [place] [address] PCP - General Family Medicine 08/15/24 Lew Bird APRN.COUNTER CASER [address] [place], [place] [id number] [facility] 04/16/24 Irma Perez PA-C [address] [place] [address] [facility] 04/16/24 Reason for Visit (unrecogniz ed section [...] MDM 60-74 MINUTES Andry Jean-Baptiste MD [address] [place] [address] Referral ID Status Reason Start Date Expiration Date V isits Requested Visits Authorized [id number] Closed PCP Requested Referral 03/07/2022 03/07/2023 1 [...] DIFFUSING CAPACITY Teri Gross MD [address] [facility] [place] [place] [address] Respiratory [place] [address] [place] [address] Referral ID Status Reason Start Date Expiration Date V isits Requested Visits Authorized [id number] Closed Auto-Generate d Referral 04/16/2023 05/15/2024 1 [...] W/O Teri Jara MD [address] [place] [address] [place] [address] Referral ID Status Reason Start Date Expiration Date V isits Requested Visits Authorized [id number] Closed Auto-Generate d Referral 06/16/2023 07/16/2023 1 [...] W/O Teri Jara MD [address] [place] [address] Phone: tel: fax: [place] [phone] Referral ID Status Reason Start Date Expiration Date V isits Requested Visits Authorized [id number] Closed Auto-Generate d Referral 06/07/2024 08/06/2024 1 [...] BE BASED ON THE PRIMARY CLINICAL RECORDS. [facility] [employer] provides no warranty or guarantee of the accuracy or completeness of information in this document.
[2024-11-13 18:23] VITALS: BP 128/64; PULSE 80; RESP 98; TEMP 36.9; O2SAT 99
== END 2024-11-13 18:25 | disposition home or self-care (01) ==
LOC: ED 18:16
PROVIDERS: Emergency Provider Emergency Medicine; PCP Family Medicine; Visit Provider Emergency Medicine
DX: L03.113 Cellulitis of right upper limb (principal); J43.9 Emphysema, unspecified; I25.10 Atherosclerotic heart disease of native coronary artery without angina pectoris; E78.00 Pure hypercholesterolemia, unspecified; G47.33 Obstructive sleep apnea (adult) (pediatric); Z87.891 Personal history of nicotine dependence; Z79.51 Long term (current) use of inhaled steroids; Z79.899 Other long term (current) drug therapy
CPT/HCPCS: 99282

== ENCOUNTER 2024-11-15 12:26 | Emergency (ER) | payer MEDICARE, SELFPAY ==
[2024-11-15] VITALS (7 sets, daily range): BP systolic 119–141; BP diastolic 46–86; PULSE 70–86; RESP 16–18; TEMP 36.4–36.9; O2SAT 95–99; BMI 26.2
--- NOTE | 2024-11-15 12:46 | EX.ED.DYSGE1 ---
HPI History of Present Illness Chief Complaint: Cellulitis Narrative Narrative: 69-year-old male presents after being seen in the emergency department 2 days ago with worsening cellulitis. He denies any fevers or chills, no increased pain but states the areas burn. He was seen in the emergency department previously with areas on his right trapezius, and right shoulder/upper extremity that were reddened. It started out smaller and has spread. He denies any nausea or vomiting or increased pain but they noticed that the redness extends further outside the lines that were drawn on his skin, especially on his neck and right trapezius. He has been taking Keflex 4 times a day. There is been no improvement and family feels like it is getting worse. [facility] Medical History Respiratory failure Coronary artery disease Cardiology follow-up encounter Anxiety Wears partial dentures Wears glasses Arthritis Low iron High cholesterol Injury of back History of ulceration Gastric reflux Former smoker Asthma CPAP (continuous positive airway pressure) dependence Sleep apnea History of stress test Nonobstructive atherosclerosis of coronary artery Iron deficiency anemia Lumbar disc disease Peptic ulcer Iron deficiency anemia secondary to inadequate dietary iron intake Chronic low back pain Diverticulosis Hiatal hernia Malabsorption syndrome GERD (gastroesophageal reflux disease) [place] treated with BiPAP Hyperlipidemia Pulmonary emphysema Vitamin D deficiency Insomnia Bilateral carotid artery disease Home Medications ?Medication ?Instructions ?Recorded ?Last Taken ?Type calcium 600 mg (as carbonate)-vit 1 ea PO DAILY vitamin 09/08/16 Unknown History D3 10 mcg (400 unit) chewable tablet (Calcium 600 with Vitamin D3) albuterol sulfate 90 mcg/actuation 2 puff inhalation Q6H PRN Wheezing 10/24/21 Unknown History aerosol inhaler (Ventolin HFA) cholecalciferol (vitamin D3) 1,250 1,250 mcg PO QWEEK vitamin 10/24/21 Unknown History mcg (50,000 unit) tablet cyanocobalamin (vitamin B-12) 2,000 mcg PO DAILY vitamin 10/24/21 Unknown History 1,000 mcg tablet (Vitamin B-12) epinephrine 0.3 mg/0.3 mL 0.3 mg IM ONCE PRN Allergic 10/24/21 Unknown History injection, auto-injector (EpiPen) Reaction nitroglycerin 0.4 mg sublingual 0.4 mg sublingual Q5-15M PRN Chest 10/24/21 Unknown History tablet Pain omega-3 fatty acids 1,000 mg 1,000 mg PO DAILY supplement 10/24/21 Unknown History capsule omeprazole 40 mg capsule,delayed 40 mg PO BID reflux 10/24/21 Unknown History release coenzyme Q10 100 mg capsule (Co 100 mg PO QHS supplement 10/25/21 Unknown History Q-10) iron, carbonyl 45 mg tablet 45 mg PO DAILY supplement 04/22/22 Unknown History pravastatin 80 mg tablet 40 mg PO QHS cholesterol 10/29/22 Unknown History benzonatate 200 mg capsule 200 mg PO TID PRN PRN cough 09/20/23 Unknown History fluticasone fur. 100 mcg-umeclid 1 ea inhalation DAILY breathing 09/20/23 Unknown History 62.5 mcg-vilant 25 mcg inhalat.powder (Trelegy Ellipta) ipratropium 0.5 mg-albuterol 3 mg 3 ml inhalation Q4H PRN sob 09/20/23 Unknown History (2.5 mg base)/3 mL nebulization soln triamcinolone acetonide 0.5 % 1 applic topical BID 10/20/23 Unknown History topical ointment ondansetron 4 mg disintegrating 4 mg PO Q8H PRN PRN Nausea #10 tabs 03/29/24 Unknown Rx tablet Held on 11/13/24. Instructions: Pt has been DC'd albuterol sulfate 90 mcg/actuation 2 puff inhalation Q4H PRN PRN 07/10/24 Unknown Rx aerosol inhaler (Ventolin HFA) Wheezing #1 ea prednisone 20 mg tablet 40 mg (2 x 20 mg) PO DAILY 7 days 07/10/24 Unknown Rx #14 tabs cephalexin 500 mg capsule 500 mg PO Q6 #40 CAPSULES 11/13/24 Unknown Rx Allergy/AdvReac Type Severity Reaction Status Date / Time bee venom protein (honey bee) Allergy Intermediate Hives Verified 11/15/24 12:27 morphine Allergy Intermediate hypotension Verified 11/15/24 12:27 pneumococcal vaccine Allergy Intermediate localized Verified 11/15/24 12:27 swelling codeine Allergy Unknown Verified 11/15/24 12:27 meperidine HCl (From Demerol) Allergy Unknown Verified 11/15/24 12:27 propoxyphene HCl (From Allergy Unknown Verified 11/15/24 12:27 Darvon) propoxyphene napsylate (From Allergy Unknown Verified 11/15/24 12:27 Darvocet-N 100) atorvastatin (From Lipitor) AdvReac Intermediate leg Verified 11/15/24 12:27 weakness Family History Mother Diabetes CHF (congestive heart failure) Hypertension Colon cancer Father Cancer pancreatic Sister Colon cancer Brother COPD (chronic obstructive pulmonary disease) Diabetes Cancer prostate Surgical History History of carpal tunnel release History of gastric bypass History of back surgery (09/11/15) H/O bypass gastrojejunostomy (~2006) History of left heart catheterization (10/28/21) History of esophagogastroduodenoscopy (EGD) (~10/23/20) History of colonoscopy (~10/23/20) History of appendectomy History of cholecystectomy (~2002) Social History Smoking Status: Former smoker Tobacco: How many years used: 33 how long ago did patient quit smokin08/07/2001 alcohol intake: never substance use type: does not use ROS ROS ED ROS Narrative Review of systems positive for increased redness on right trapezius extending out towards neck, and right shoulder. No fevers or chills, no nausea or vomiting, no increased pain or decreased movement of right shoulder. No exacerbating or alleviating factors. EXAM Physical Exam Narrative Exam Narrative: Afebrile. Vital signs noted. Nontoxic-appearing. Cardiovascular examination reveals regular rate and rhythm. Lungs are clear to auscultation bilaterally. Abdomen is soft, nontender, without guarding or rebound. Neurological examination nonfocal and nonlateralizing. Inspection of the right shoulder and neck shows increased redness slightly extending outside?line drawn around cellulitic areas. No crepitance. Full range of motion of right shoulder. Neurovascularly intact distally. Small areas on back that seem to be improving. Const Vital Signs: 11/15/24 12:27 11/15/24 12:29 11/15/24 13:29 Temperature 97.5 F L 97.5 F L 98.5 F Temperature Source Oral Temporal Oral Pulse Rate 80 80 86 Respiratory Rate 18 18 18 Blood Pressure 120/67 120/67 141/67 H Blood Pressure Mean 84 84 91 Pulse Ox 99 99 97 Oxygen Delivery Method Room Air Room Air Room Air 11/15/24 14:00 11/15/24 15:00 Temperature 97.9 F 98 F Temperature Source Oral Oral Pulse Rate 70 79 Respiratory Rate 18 18 Blood Pressure 123/58 H 119/66 Blood Pressure Mean 79 83 Pulse Ox 96 97 Oxygen Delivery Method Room Air Room Air MDM MDM MDM Narrative Medical decision making narrative: Differential diagnosis includes but not limited to inflammatory reaction versus bug bites versus worsening cellulitis and failure of outpatient treatment. Sepsis workup was pursued, however he is currently afebrile and not tachycardic. Although he has been on antibiotics blood cultures will be drawn. I reviewed his laboratory work and he has a normal white count of 5.3, hemoglobin 13.0, hematocrit 37.9 with platelet count normal 337. INR normal at 1.0, APTT normal at 35.9, electrolyte panel grossly unremarkable with glucose 112 but normal anion gap of 12. LFTs are grossly unremarkable. Lactic acid is also normal at 1.4. Currently he is not meeting any SIRS criteria, nor is he septic. I did order Zosyn and vancomycin. I had a lengthy discussion with the patient and his . I offered observation for continued IV antibiotics. I also discussed with him that this may be more of an inflammatory process than infectious cellulitis. He has only been on 2 days of antibiotics. He prefers continued outpatient treatment. As his workup here is negative, I feel that he could be discharged to follow-up and finish his course of outpatient antibiotics. He and his are agreeable to discharge. Return instructions to the emergency department were reviewed. Disposition is discharged home in stable condition. History & Record Review Discussion w/independent historian: Patient and Family Lab Data Attestation: I reviewed the patient's lab results. Labs: Laboratory Results - last 24 hr 11/15/24 12:45 WBC 5.3 RBC 4.31 L Hgb 13.0 Hct 37.9 L MCV 87.9 MCH 30.2 MCHC 34.3 RDW Std Deviation 39.1 RDW Coeff of Dari 12.2 Plt Count 337 MPV 8.3 Immature Gran % (Auto) 0.600 Neut % (Auto) 67.4 Lymph % (Auto) 20.2 Sargent % (Auto) 7.6 Eos % (Auto) 3.4 Baso % (Auto) 0.8 Absolute Neuts (auto) 3.5 Absolute Lymphs (auto) 1.06 Nucleated RBC % 0 PT 13.3 INR 1.0 APTT 35.9 Sodium 139 Potassium 4.4 Chloride 105 Carbon Dioxide 22.5 Anion Gap 12 BUN 12 Creatinine 0.77 Estim Creat Clear Calc 88.72 Est GFR (MDRD) Non-Af 96 BUN/Creatinine Ratio 15.5 Glucose 112 H Lactic Acid 1.4 Calcium 9.3 Total Bilirubin 0.27 AST 33 ALT 34 Alkaline Phosphatase 112 Total Protein 7.0 Albumin 4.2 Globulin 2.8 Albumin/Globulin Ratio 1.5 Discharge Plan Triage Chief Complaint: Cellulitis ED Provider: Fredo Smiley Dx/Rx/DC Orders Clinical Impression: Cellulitis, Erythema Instructions: ED Cellulitis, ED Erythema Prescriptions: No Action coenzyme Q10 [Co Q-10] 100 mg capsule 100 mg PO QHS omeprazole 40 mg capsule,delayed release(DR/EC) 40 mg PO BID cyanocobalamin (vitamin B-12) [Vitamin B-12] 1,000 mcg tablet 2,000 mcg PO DAILY cholecalciferol (vitamin D3) 1,250 mcg (50,000 unit) tablet 1,250 mcg PO QWEEK epinephrine [EpiPen] 0.3 mg/0.3 mL auto-injector 0.3 mg IM ONCE PRN (Reason: Allergic Reaction) Rx Instructions: as a single dose; may repeat once omega-3 fatty acids 1,000 mg capsule 1,000 mg PO DAILY nitroglycerin 0.4 mg tablet, sublingual 0.4 mg sublingual Q5-15M PRN (Reason: Chest Pain) Rx Instructions: do not exceed 3 doses per episode iron, carbonyl 45 mg tablet 45 mg PO DAILY pravastatin 80 mg tablet 40 mg PO QHS triamcinolone acetonide 0.5 % ointment 1 applic topical BID Calcium 600 with Vitamin D3 1 EACH tablet,chewable 1 ea PO DAILY albuterol sulfate [Ventolin HFA] 90 mcg/actuation HFA aerosol inhaler 2 puff inhalation Q6H PRN (Reason: Wheezing) ondansetron 4 mg tablet,disintegrating 4 mg PO Q8H PRN PRN (Reason: Nausea) Qty: 10 0RF prednisone 20 mg tablet 40 mg PO DAILY 7 Days Qty: 14 0RF albuterol sulfate [Ventolin HFA] 90 mcg/actuation HFA aerosol inhaler 2 puff inhalation Q4H PRN PRN (Reason: Wheezing) Qty: 1 0RF cephalexin 500 mg capsule 500 mg PO Q6 Qty: 40 0RF benzonatate 200 mg capsule 200 mg PO TID PRN PRN (Reason: cough) ipratropium-albuterol 0.5 mg-3 mg(2.5 mg base)/3 mL solution for nebulization 3 ml inhalation Q4H PRN (Reason: sob) Trelegy Ellipta 100-62.5-25 mcg blister with device 1 ea inhalation DAILY Primary Care Provider: Andry Etienne Referrals: Andry Etienne MD [Primary Care Provider] - 3-5 Days Activity Restrictions/Additional Instructions: Continue the cephalexin 4 times a day that you are given 2 days ago. Finish the course of therapy. Return to the emergency department with fever, increased erythema/redness of the skin, new or worsening symptoms. Print Language: Spanish Disposition Disposition: Home, Self Care
[2024-11-15 13:22] LABS: Hematocrit 37.9 % (40-54); Hemoglobin 13.0 g/dL (13.0-16.5); Immature Granulocytes Count 0.030 X10^3/uL (0.0-0.0); Mean Corp Hgb Conc 34.3 g/dL (32-36); Mean Corpuscular Volume 87.9 fL (80-94); Mean Platelet Vol. 8.3 fl (6.2-12.0); NRBC Flagged by Analyzer 0 % (0-5); Platelet Count 337 K/mm3 (150-450); RBC Distribution Width CV 12.2 % (11.6-14.6); RBC Distribution Width SD 39.1 fl (35.1-43.9); Red Blood Count 4.31 M/mm3 (4.6-6.2); White Blood Count 5.3 K/mm3 (4.4-11.0)
[2024-11-15 13:38] LABS: Prothrombin Time (Protime)PT. 13.3 SECONDS (11.7-14.9)
[2024-11-15 13:39] LABS: Partial Thromboplast Time 35.9 Seconds (24.1-36.2)
[2024-11-15 14:09] LABS: AST(SGOT) 33 U/L (<=37); Alanine Aminotransfer ALT/SGPT 34 U/L (<=46); Albumin, Serum 4.2 g/dL (3.4-4.8); Alkaline Phosphatase 112 U/L (40-129); Anion Gap 12 (5-15); BUN 12 mg/dL (4-19); BUN/Creat Ratio 15.5 RATIO (10-20); Calcium,Total 9.3 mg/dL (7.6-11.0); Carbon Dioxide 22.5 mmol/L (21.0-32.0); Chloride 105 mmol/L (98-108); Estimated Creatinine Clearance 88.72 ml/min (50-250); Globulin 2.8 g/dL (2.2-4.2); Glucose 112 mg/dL (70-99); Potassium 4.4 mmol/L (3.3-5.1)
[2024-11-15] MEDS: Vancomycin HCl 1,250 MG in 0.9% Normal Saline (250mL Bag) 250 ML 167 MG IV (14:55)
== END 2024-11-15 17:08 | disposition home or self-care (01) ==
PROVIDERS: Emergency Provider Emergency Medicine; PCP Family Medicine; Visit Provider Emergency Medicine
DX: I25.10 Atherosclerotic heart disease of native coronary artery without angina pectoris (principal); L03.113 Cellulitis of right upper limb; G47.33 Obstructive sleep apnea (adult) (pediatric); Z87.891 Personal history of nicotine dependence
CPT/HCPCS: 80053; 83605; 85025; 85610; 85730; 87040; 96365; 96366; 96367; 99284

== ENCOUNTER 2025-02-27 21:23 | Emergency (ER) | payer MEDICARE, SELFPAY ==
[2025-02-27] VITALS (7 sets, daily range): BP systolic 109–137; BP diastolic 56–87; PULSE 91–112; RESP 18–26; TEMP 36.8; O2SAT 91–98; BMI 23.1
--- NOTE | 2025-02-27 22:17 | RAD_ITS ---
PROCEDURE: CHEST PA AND LATERAL 02/27/2025 REASON FOR EXAM: COUGH TECHNIQUE: Procedure Code: RADCXR Modality: DX Procedure: CHEST PA AND LATERAL COMPARISON: 07/10/2024 FINDINGS: Lungs/Pleura: Clear. Probable right hilar calcified granuloma, unchanged. Heart/Mediastinum: Within normal limits. Bones/Soft tissues: Unremarkable. Epigastric surgical clips. RAD/Chest PA and Lateral IMPRESSION: No acute pulmonary disease. Reading Location: [id number]
[2025-02-27] MEDS: Albuterol 2.5 MG/3 ML VIAL.NEB. INHALATION (22:28)
--- OUTSIDE RECORDS SUMMARY | 2025-02-27 22:46 | XMS RPT_ITS | CCD ---
Author Organization [facility] Care Team Providers Care Energy Operations Vice President Name Role Phone Ronak Barry MD Unavailable Sena Hall Unavailable Unavailable DANY TOVAR DR Unavailable Unavailable DANY TOVAR DR Unavailable Unavailable DANY TOVAR DR Unavailable Unavailable RYLIE HINOJOSA Unavailable Unavailable PROVIDER, UNKNOWN Unavailable Unavailable PROVIDER, UNKNOWN Unavailable Unavailable PROVIDER, UNKNOWN Unavailable Unavailable Sena Hall Unavailable Unavailable Andry Jean-Baptiste MD Primary Care Provider Andry Jean-Baptiste MD Primary Care Provider [phone] Andry Jean-Baptiste MD Primary Care Provider Andry Jean-Baptiste MD Primary Care Provider Dr. Andry Jean-Baptiste Primary Care Provider Dr. Andry Jean-Baptiste Referring Provider [phone] Dr. Jason Nelson Attending Provider FriendDr. Gomez Other Provider Andry Jean-Baptiste MD Primary Care Provider Andry Jean-Baptiste MD Primary Care Provider Henok BARDALES.VOLLEYBALL PLAYER, Lew Unavailable Irma Perez PA-C Unavailable Andry Jean-Baptiste MD Primary Care Provider Dr. Andry Jean-Baptiste MD Primary Care Provider Dr. Maycol Olivares MD Emergency Provider Fredo Smiley MD Emergency Provider Henok AS400 DEVELOPER.JEAN Lew Unavailable Vladislav Perez PA-Ce Unavailable Donny Duval Attending Unavailable Jerilyn, Andry Primary Care Unavailable Jerilyn, Andry Primary Care Unavailable Reodickareem, Fredo Attending Unavailable Maycol Olivares Attending Unavailable Jerilyn, Andry Primary Care Unavailable Jerilyn, Andry Primary Care Unavailable Fredo Smiley Attending Unavailable PROVIDER, UNKNOWN Referring Unavailable JERILYN, ANDRY A Primary Care Unavailable JERILYN, ANDRY A Primary Care Unavailable TESTRAKE, SRINATH Referring Unavailable JERILYN, ANDRY A Primary Care Unavailable TESTSRINATH WOODARD Attending Unavailable JERILYN, ANDRY A Primary Care Unavailable IRMA PEREZ Referring Unavailable JERILYN, ANDRY A Primary Care Unavailable KIMBERLY DOWD Attending Unavailable JERILYN, ANDRY A Primary Care Unavailable LEW BIRD Attending Unavailable JERILYN, ANDRY A Primary Care Unavailable JERILYN, ANDRY A Referring Unavailable JERILYN, ANDRY A Primary Care Unavailable JERILYN, ANDRY A Attending Unavailable JERILYN, ANDRY A Primary Care Unavailable KIMBERLY DOWD Referring Unavailable JERILYN, ANDRY A Primary Care Unavailable LEW BIRD Attending Unavailable JERILYN, ANDRY A Primary Care Unavailable JAIMIE JETT Attending Unavailable JERILYN, ANDRY A Primary Care Unavailable JERILYN, ANDRY A Attending Unavailable JERILYN, ANDRY A Primary Care Unavailable LEW BIRD Attending Unavailable JERILYN, ANDRY A Primary Care Unavailable TERI GROSS Attending Unavailable JERILYN, ANDRY A Primary Care Unavailable JERILYN, ANDRY A Referring Unavailable JERILYN, ANDRY A Primary Care Unavailable LEW BIRD Attending Unavailable JERILYN, ANDRY A Primary Care Unavailable TERI GROSS Referring Unavailable TERI GROSS Attending Unavailable JERILYN, ANDRY A Primary Care Unavailable MARIA DE JESUS OSWALD Referring Unavailable JERILYN, ANDRY A Primary Care Unavailable JAIMIE JETT A Attending Unavailable JERILYN, ANDRY A Primary Care Unavailable LEW BIRD Attending Unavailable JERILYN, ANDRY A Primary Care Unavailable KNLEW CUMMINGS Referring Unavailable JERILYN, ANDRY A Primary Care Unavailable SUPPAN, JAIMIE A Attending Unavailable JERILYN, ANDRY A Primary Care Unavailable JERILYN, ANDRY A Referring Unavailable Allergies Allergy Classification Reported Allergen(s) Allergy Type Date of Onset Reaction(s) Facility HMG-CoA Reductase Inhibitors (statins) (1 source) atorvastatin Drug Allergy 06-19-19 Other: See Comments [facility] Opioid Agonists (4 sources) Codeine Drug Allergy 02-11-20 05 Unknown, Other: See Comments [facility] Streptococcus pneumoniae type 1 capsular polysaccharide [...] polysaccharide antigen Drug Allergy 03-25-20 13 Swelling [facility] (3 sources) acetaminophen / propoxyphene drug allergy 08-20-19 17 [facility] Work Phone: (20 sources) codeine; Translations: [CODEINE] drug allergy 02-11-20 05 Unknown [facility] Work Phone: [phone] (4 sources) meperidine; Translations: [DEMEROL] drug allergy 08-20-19 17 [facility] Work Phone: [phone] (20 sources) morphine; Translations: [morphine] drug allergy 07-06-19 15 Other: See Comments [facility] Work Phone: [phone] (3 sources) PNEUMONIA VACCINE drug allergy 08-21-19 17 [facility] Work Phone: [phone] (1 source) meperidine Drug Allergy [facility] (1 source) propoxyphene Drug Allergy [facility] (1 source) DARVOCET-N 100 Drug allergy (disorder) AOF [facility] (20 sources) atorvastatin; Translations: [ATORVASTATIN CALCIUM] Drug Allergy 06-19-19 17 Other: See Comments [facility] Work Phone: (20 sources) Meperidine; Translations: [MEPERIDINE HCL] Drug Allergy 02-11-20 05 Unknown [facility] Work Phone: (20 sources) Propoxyphene; Translations: [PROPOXYPHENE HCL] Drug Allergy 02-11-20 05 Unknown [facility] Work Phone: (20 sources) Streptococcus pneumoniae [...] PS VACCINE] Drug Allergy 03-25-20 13 Swelling [facility] Work Phone: (20 sources) Bees; Translations: [BEES] Allergy to substance 07-06-19 19 Hives [facility] Work Phone: (20 sources) Propoxyphene N-Acetaminophen; Translations: [PROPOXYPHENE N-ACETAMINOPHEN] Propensity to adverse reactions to drug 02-11-20 05 Unknown [facility] Work Phone: (5 sources) Acetaminophen Drug Allergy 09-03-19 23 Unknown [facility] (7 sources) atorvastatin Drug Allergy 09-03-19 23 leg weakness [facility] (7 sources) Pneumococcal vaccine Drug Allergy 09-03-19 23 localized swelling [facility] (8 sources) Propoxyphene; Translations: [propoxyphene napsylate] Drug Allergy 09-03-19 23 Unknown [facility] (7 sources) bee venom protein (honey bee) Allergy to substance 09-03-19 Hives [facility] (1 source) Acetaminophen Drug Allergy 07-11-19 [facility] (1 source) atorvastatin Drug Allergy 11-16-19 [facility] (1 source) Meperidine Drug Allergy 11-16-19 25 [facility] (1 source) Pneumococcal vaccine Drug Allergy 11-16-19 [facility] (1 source) Propoxyphene Drug Allergy 11-16-19 [facility] (1 source) bee venom protein (honey bee) Drug allergy (disorder) 11-16-19 [facility] Medications Current Medications Medication Drug Class(es) Dates Sig (Normalized) Sig (Original) acetaminophen 500 mg oral tablet (20 sources) take 2 tablets by mouth twice daily acetaminophen (TYLENOL EXTRA STRENGTH) 500 mg tablet Take 1,000 mg by mouth two times a day. Active [id number] 200 actuat albuterol 0.09 mg/actuat metered dose inhaler (20 sources) beta2-Adrenergic Agonist Start: 07-10-2024 Albuterol Sulfate (Ventolin Hfa) 90 mcg/actuation HFA aerosol inhaler Active 2 NMA INHALATION EVERY 4 HOURS NEEDED as needed for Wheezing 1 0 July 10, 2024 1:00am Start: 09-18-2023 End: 09-18-2023 albuterol 2.5 mg/0.5 [...] 1 Each 3 05/24/2024 Active Start: 10-24-2021 Albuterol Sulf ate (Ventolin Hfa) 90 mcg/actuation HFA aerosol inhaler Active 2 NMA INHALATION EVERY 6 HOURS as needed for Wheezing October 24, 2021 3:10pm Start: 10-24-2021 take 1 puff(s) by in [...] Hfa (Sp)) 1 INHALER inhaler Discontinued 1 NMA INHALATION EVERY 4 HOURS NEEDED as needed for Wheezing September 08, 2016 12:00am October 24, 2021 3:17pm Start: 09-08-2016 End: 10-24-2021 Albuterol Sulfate (Ventolin Hfa (Sp)) 1 INHALER inhaler Discontinued 1 PUFF INHALATION EVERY 4 HOURS NEEDED September 08, 2016 12:00am October 24, 2021 3:17pm Start: 08-19-2016 VENTOLIN HFA 1 08 (90 Base) MCG/ACT AERS As needed - 90mcg/inh ALBUTEROL SULFATE [id number] Natalie Juarez RN Start: 08-19-2016 VENTOLIN HFA 1 08 (90 Base) MCG/ACT AERS As needed - 90mcg/inh ALBUTEROL SULFATE [id number] Natalie Juarez RN Comment on above: Inhale [...] on above: Take 1 tablet by alex two times a day for 7 days. azithromycin 250 mg oral tablet (9 sources) Macrolide Antimicrobial Start: 06-21-2024 End: 06-26-2024 azithromycin (ZITHROMAX Z-REX) 250 mg tablet Indications: Pneumonia of right upper lobe due to infectious organism Take 2 tablets day one, then, 1 tablet daily until gone. 6 tablet 06/21/2024 06/26/2024 Active Start: 02-09-2023 End: 09-20-2023 take 2 tablets by mouth once daily Azithromycin (Zithromax) 250 mg tablet Discontinued 250 mg PO DAILY 4 4 0 February 09, 2023 12:00am September 20, 2023 [...] capsule 06/21/2024 07/06/2024 Active Start: 09-20-2023 take 1 capsule by mo uth three times daily as needed for cough Benzonatate 200 mg capsule Active 200 mg PO 3 TIMES DAILY NEEDED as needed for cough September 20, 2023 12:00am Start: 03-12-2023 End: [...] Comment on above: Take 1 capsule by mo uth three times daily as needed. Take 2 capsules by [facility] three times a day as needed. calcium carbonate 1500 mg / cholecalciferol 800 unt chewable tablet (7 sources) Vitamin D Start: 09-08-2016 Calcium Carbonate-Vitami n D3 (Calcium 600 With Vitamin D3) 1 EACH tablet,chewable Active 1 NMA PO DAILY September 08, 2016 12:00am vitamin Calcium Carbonate / vitamin D3 (20 sources) take 1 tablet by mouth once daily CALCIUM CARBONATE/VITAMI N D3 (CALCIUM + D ORAL) Take 1 tablet by mouth once daily. Active take 1 tablet by mouth once navid y CALCIUM CARBONATE/VITAMIN D3 (CALCIUM + D ORAL) Take 1 tablet by mouth once daily. 0 Active Comment on above: Take 1 tablet by alex once daily. cephalexin 500 mg oral capsule (2 sources) Cephalosporin Antibacterial Start: 025 take 1 capsule by mouth every six hours Cephalexin 500 mg capsule Active 500 mg PO EVERY 6 HOURS 40 0 November 13, 2024 12:00am cholecalciferol 1.25 mg oral capsule (20 sources) Vitamin D Start: take 1 tablet by mouth every week Cholecalciferol (Vitamin D3) 1,250 mcg (50,000 unit) tablet Active 1250 ug PO EVERY WEEK October 24, 2021 12:00am vitamin Start: 10-24-2021 take 1250 ug by mout h every week Cholecalciferol (Vitamin D3) Active 1250 MCG PO EVERY WEEK October 24, 2021 12:00am Start: 03-04-2021 End: 12-19-2024 take 1 capsule by mouth every week cholecalciferol, Vitamin D3, (VITAMIN D3) 1,250 mcg (50,000 unit) cap capsule Indications: Vitamin D deficiency Take 1 capsule by mouth one time a week. 12 capsule 3 12/19/2024 Active Comment on above: Take 1 capsule by mo uth one time a week. cyanocobalamin, vitamin B-12, (VITAMIN B-12 ORAL) (20 sources) take 2 tablets by mouth once daily cyanocobalamin, vitamin B-12, (VITAMIN B-12 ORAL) Take 2 tablets by mouth once daily. Active take 2 tablets by mouth once melquiades ly cyanocobalamin, vitamin B-12, (VITAMIN B-12 ORAL) Take 2 tablets by mouth once daily. 0 Active Comment on above: Take 2 tablets by mo uth once daily. [id number] 0.3 ml EPINEPHrine 1 mg/ml auto-injector (20 sources) alpha-Adrenergic Agonist, beta-Adrenergic Agonist, Catecholamine Start: 10-24-2021 Epinephrine (Epipen) 0.3 mg/0.3 mL auto-injector Active 0.3 mg IM ONCE as needed for Allergic Reaction October 24, 2021 12:00am as a single dose; may repeat once Start: 07-06-2020 EPINEPHrine (E PIPEN) 0.3 mg/0.3 mL auto-injector If symptoms of allergic reaction follow instruction on package insert. 1 Each 1 07/06/2020 Active Comment on above: If symptoms of aller gic reaction follow instruction on package insert. Iron (20 sources) take 1 tablet by mouth once daily Iron 40 mg cap Take 1 tablet by mouth once daily. Active take 1 tablet by mouth once navid y Iron 40 mg cap Take 1 tablet by mouth once daily. 0 Active Comment on above: Take 1 tablet by alex th once daily. iron carbonyl 45 mg oral tablet (7 sources) Start: 04-22-20 take 1 tablet by mouth once daily Iron, Carbonyl 45 mg tablet Active 45 mg PO DAILY April 22, 2022 1:00am supplement levoFLOXacin 500 mg oral tablet (8 sources) [...] 1 tablet by alex once daily for 10 days. nirmatrelvir tablet 300 mg (150 mg x 2) and ritonavir tablet 100 mg in a dose pack (PAXLOVID) (1 source) Start: 03-13-20 End: 03-18-20 nirmatrelvir tablet 300 mg (150 mg x [...] a total of three tablets twice daily. nitroglycerin 0.4 mg sublingual tablet (20 sources) Nitrate Vasodilator Start: 10-25-19 End: 07-05-19 Nitroglycerin 0.4 mg tablet, sublingual Active 0.4 mg SL every 5 to 15 minutes as needed for Chest Pain October 24, 2021 12:00am do not exceed 3 doses per episode Comment on above: Dissolve 1 tablet un alexia the tongue every 5 minutes as needed for chest pain. Max of three in a row nystatin 607007 unt/ml / triamcinolone acetonide 1 mg/ml topical cream (2 sources) Polyene Antifungal, Corticosteroid Start: 12-30-19 End: 01-06-20 nystatin-triamcinolon e (MYCOLOG II) cream Indications: Rash Apply to affected area four times daily for 7 days. 15 g 12/29/2024 01/05/2025 Active [place]-3 Fatty Acids (5 sources) Start: 10-25-19 take 1000 mg by mouth once daily [place]-3 Fatty Acids Active 1000 MG PO DAILY October 23, 2021 11:00pm Start: 10-24-2021 take 1000 mg by mouth once melquiades ly [place]-3 Fatty Acids Active 1000 MG PO DAILY October 24, 2021 12:00am omega-3 fatty acids 1,000 mg cap (20 sources) Start: 12-24-2016 take 1 capsule by mouth once daily omega-3 fatty acids 1,000 mg cap Take 1 capsule by mouth once daily. 0 12/24/2016 Active Comment on above: Take 1 capsule by [facility] once daily. [place]-3 Fatty Acids 1,000 mg capsule (2 sources) Start: 10-24-2021 take 1 capsule by mouth once daily [place]-3 Fatty Acids 1,000 mg capsule Active 1000 mg PO DAILY October 24, 2021 12:00am supplement omeprazole 40 mg delayed release oral capsule [...] Omeprazole (Prilosec) 40 MG capsule Discontinued 40 mg PO DAILY September 08, 2016 12:00am October 24, 2021 3:08pm Comment on above: Take 1 capsule by mo [facility] twice daily. Take [address] [facility] two times a day. ondansetron 4 mg disintegrating oral tablet (2 sources) Serotonin-3 Receptor Antagonist Start: take 1 tablet by mouth every eight hours as needed for nausea Ondansetron 4 mg tablet,disintegrati ng Active 4 mg PO EVERY 8 HOURS NEEDED as needed for Nausea 10 0 March 29, 2024 1:00am On Hold: Pt has been DC'd pravastatin sodium 40 mg oral tablet (20 sources) HMG-CoA Reductase Inhibitor Start: Pravastatin 80 mg tablet Active 40 mg PO AT BEDTIME October 29, 2022 8:40am cholesterol Start: 10-29-2022 take 40 mg by mouth at bedtime Pravastatin Active 40 MG PO AT BEDTIME October 29, 2022 8:40am Start: 09-05-2022 End: 07-05-2024 take 1 tablet by mouth once daily pravastatin (PRAVACHOL) 40 mg tablet Indications: Coronary artery disease involving [place] coronary artery of [place] heart without angina pectoris Take 1 tablet by mouth once daily. 90 tablet 1 07/05/2024 Active Start: 10-25-2021 End: 04-22-2022 take 1 tablet by mouth at bedtime Pravastatin 40 mg tablet Discontinued 40 mg PO AT BEDTIME October 25, 2021 12:00am April 22, 2022 12:05pm Start: 09-03-2021 End: 10-29-2022 take 1 tablet by mouth at bedtime Pravastatin 80 mg tablet Discontinued 80 mg PO AT BEDTIME April 22, 2022 1:00am October 29, 2022 8:41am Start: 08-19-2016 End: 10-24-2021 take 1 tablet by mouth at bedtime Pravastatin 10 MG tablet Discontinued 10 mg PO AT BEDTIME September 08, 2016 12:00am October 24, 2021 3:08pm Comment on above: Take 1 tablet by [facility] once daily. predniSONE 10 mg oral tablet (20 sources) Start: 12-13-2024 End: 12-25-2024 take 4 tablets by mouth once daily, then take 3 tablets by mouth once daily, then take 2 tablets by mouth once daily, then take 1 tablet by mouth once daily predniSONE (DELTASONE) 10 mg tablet Indications: Contact dermatitis, unspecified contact dermatitis type, unspecified trigger Take 4 tablets by mouth once daily for 3 days, THEN 3 tablets once daily for 3 days, THEN 2 tablets once daily for 3 days, THEN 1 tablet once daily for 3 days. 30 tablet 12/13/2024 12/25/2024 Active Start: 07-10-2024 End: 12-13-2024 take 2 tablets by mouth once daily predniSONE (DELTASONE) 20 mg tablet Take two orally daily for 5 days 10 tablet 09/09/2024 12/13/2024 Discontinued Start: 07-05-2024 End: 07-17-2024 predniSONE (DELTASONE) 10 [...] 07/05/2024 Discontinued (Course of therapy completed) Start: 09-23-2023 End: 10-20-2023 Prednisone 20 mg tablet Disc ontinued 40 mg PO DAILY September 23, 2023 12:00am October 20, 2023 3:55pm 40 mg daily for 3 days, then 20 mg daily x 5 days, then discontinue Start: 03-12-2023 End: 03-17-2023 take 2 tablets by mouth once daily predniSONE (DELTASONE) 20 mg tablet Indications: URI, acute Take 2 tablets by mouth once daily for 5 days. 10 tablet 03/12/2023 03/17/2023 Start: 02-16-2023 End: 09-20-2023 take 4 tablets by mouth once daily, then take 3 tablets by mouth once daily, then take 2 tablets by mouth once daily, then take 1 tablet by mouth once daily Prednisone 10 mg tablet Discontinued 10 mg PO DIRECTED 30 March 20, 2023 1:00am September 20, 2023 1:20pm Take 4 tablets daily for 3 days, then 3 daily for 3 days, then 2 daily for 3 days, then 1 a day for 3 days Start: 05-15-2022 End: 05-20-2022 take 1 tablet [...] tablet by alex th once daily for 5 days. Take 4 tabs daily fo r 3 days, then 2 tabs daily for 3 days, then 1 tab daily for 3 days with food. Take 2 tablets by [facility] once daily for 5 days. topiramate 25 mg oral tablet (20 sources) Start: 07-05-19 End: 01-02-20 take 1 tablet by mouth once daily at bedtime topiramate (TOPAMAX) 25 mg tablet Indications: Migraine without aura, intractable, without status migrainosus Take 1 tablet by mouth daily at bedtime. 30 tablet 5 07/05/2024 Active triamcinolone acetonide 0.005 mg/mg topical ointment (20 sources) Corticosteroid Start: 10-20-19 Triamcinolone Acetonide 0.5 % ointment Active 1 NMA TOPICAL TWICE A DAY October 20, 2023 12:00am Start: 09-17-2022 End: 2024 triamcinolone acetonide topi jeanne 0.5 % ointment Indications: Eczema, unspecified type Apply to affected area two times a day. May use up to 2 weeks. 30 g 1 05/19/2024 2024 Active Comment on above: Apply to affected ar ea twice daily. May use up to 2 weeks. Apply to affected ar ea two times a day. May use up to 2 weeks. ubidecarenone 100 mg oral capsule (7 sources) Start: Coenzyme Q10 (Co Q-10) 100 mg capsule Active 100 mg PO AT BEDTIME October 25, 2021 12:00am supplement vitamin b12 1 mg oral tablet (7 sources) Vitamin B12 Start: take 2 tablets by mouth once daily Cyanocobalamin (Vitamin B-12) (Vitamin B-12) 1,000 mcg tablet Active 2000 ug PO DAILY October 24, 2021 12:00am vitamin Completed/Discontinued Medications Medication Drug Class(es) Dates Sig (Normalized) Sig (Original) acetaminophen 325 mg / HYDROcodone bitartrate 5 mg oral tablet (7 sources) Opioid Agonist Start: 06-16-2014 End: 10-24-2021 Hydrocodone-Acetami nophen 1 TABLET tablet Discontinued 1 - 2 {tbl} PO EVERY 6 HOURS NEEDED as needed for Pain 20 June 16, 2014 1:00am October 24, 2021 3:15pm Start: 06-16-2014 End: 10-24-2021 take 1 tablet by mouth every six hours as needed Hydrocodone-Acetaminophen Discontinued 1 - 2 TABLET PO EVERY 6 HOURS NEEDED June 16, 2014 1:00am October 24, 2021 3:15pm aspirin 81 mg oral tablet (17 sources) Nonsteroidal Anti-inflammatory Drug Start: 10-28-2021 End: 04-22-2022 take 1 capsule by mouth once daily Aspirin 81 mg Capsule Discontinued 81 mg PO DAILY October 28, 2021 12:00am April 22, 2022 12:05pm Start: 03-23-2014 End: 10-24-2021 Aspirin 81 MG tablet Discont inued 1 {tbl} PO DAILY March 23, 2014 1:00am October 24, 2021 3:14pm Start: 03-23-2014 End: 10-24-2021 take 1 tablet [...] 10.2 g 5 03/07/2022 Active Start: 10-24-2021 End: 10-20-2023 Budesonide-Formoterol 80-4.5 mcg/actuation HFA aerosol inhaler Discontinued 2 NMA INHALATION TWICE A DAY October 24, 2021 12:00am October 20, 2023 3:55pm breathing Start: 10-24-2021 take 1 puff(s) by in [...] AERO One-two puffs per day BUDESONIDE-FORMOTEROL FUMARATE [id number] Ronak Barry MD Start: 08-19-2016 SYMBICORT 80-4 .5 MCG/ACT AERO 2 puffs as instructed twice daily BUDESONIDE-FORMOTEROL FUMARATE [id number] Natalie Juarez RN Start: 08-19-2016 SYMBICORT 80-4 .5 MCG/ACT AERO One-two puffs per day BUDESONIDE-FORMOTEROL FUMARATE [id number] Ronak Barry MD Start: 08-19-2016 SYMBICORT 80-4 .5 MCG/ACT AERO 2 puffs as instructed twice daily BUDESONIDE-FORMOTEROL FUMARATE [id number] Natalie Juarez RN Start: 03-23-2014 End: 10-24-2021 Budesonide-Formoterol (Symbi stacey 160/4.5 Mcg Inhaler (Sp)) 1 INHALER inhaler Discontinued 2 NMA INHALATION DAILY March 23, 2014 1:00am October 24, 2021 3:10pm Start: 03-23-2014 End: 10-24-2021 Budesonide-Formoterol (Symbi stacey [...] Puffs as instructed two times a day. 1 Each 04/16/2023 10/14/2023 Discontinued (Not on Formulary) Comment on above: Inhale 2 Puffs as in structed two times a day. calcium carbonate / vitamin D (6 sources) Start: 08-20-19 17 take 1 tablet by mouth every twenty-four hours CALCIUM + D 600-200 MG-UNIT TABS One tablet by mouth daily CALCIUM CARBONATE-VITAMIN D Ronak Barry MD Start: 08-19-2016 take 1 tablet by alex once daily CALCIUM 500 + D 500-125 MG-UNIT TABS One tablet by mouth daily CALCIUM CARBONATE-VITAMIN D [id number] Natalie Juarez RN clopidogrel 75 mg oral tablet (10 sources) [id number] Platelet Inhibitor Start: 08-20-2016 End: 10-24-2021 take 1 tablet by mouth once daily Clopidogrel 75 MG tablet Discontinued 75 mg PO DAILY September 08, 2016 12:00am October 24, 2021 3:14pm doxycycline monohydrate 100 mg oral capsule (8 sources) Tetracycline-cla ss Drug Start: 03-20-2023 End: 09-20-2023 take 1 capsule by mouth twice daily Doxycycline Monohydrate 100 mg capsule Discontinued 100 mg PO TWICE A DAY 14 0 March 20, 2023 1:00am September 20, 2023 1:22pm Start: 02-16-2023 End: 02-23-2023 take 1 tablet by mouth twice daily doxycycline monohydrate 100 mg tablet Take 1 tablet by mouth two times a day for 7 days. 14 tablet 0 02/16/2023 02/23/2023 Active Comment on above: Take 1 tablet by alex th two times a day for 7 days. ergocalciferol 79150 unt oral capsule (10 sources) Provitamin D2 Compound Start: 08-20-19 take 1 capsule by mouth every week VITAMIN D (ERGOCALCIFEROL) 50517 UNIT CAPS One capsule by mouth every week ERGOCALCIFEROL [id number] Natalie Juarez RN Start: 03-23-2014 End: 10-24-2021 Ergocalciferol (Vitamin D2) (Vitamin D) 50,000 UNIT capsule Discontinued 25765 U PO Q7D March 23, 2014 1:00am October [...] by alex th once daily. ferrous sulfate (10 sources) Start: 08-20-2016 take 1 tablet by mouth once daily IRON 325 (65 Fe) MG TABS One tablet by mouth daily FERROUS SULFATE [id number] Ronak Barry MD Start: 06-16-2014 End: 04-22-2022 take 1 tablet by mouth once daily Ferrous Sulfate (Iron Supplement) 325 MG tablet Discontinued 325 mg PO DAILY June 16, 2014 1:00am April 22, 2022 12:03pm 30 actuat fluticasone furoate 0.1 mg/actuat / umeclidinium 0.0625 mg/actuat / vilanterol 0.025 mg/actuat dry powder inhaler (20 sources) Anticholinergic, Corticosteroid, beta2-Adrenergic Agonist Start: 09-20-2023 Znifpdljjei-Faghlkxnd-Jnzlbr er (Trelegy Ellipta) 100-62.5-25 mcg blister with device Active 1 NMA INHALATION DAILY September 20, 2023 12:00am breathing Start: 09-20-2023 Fluticasone-Um eclidin-Vilanter [Fluticasone Fur. 100 Mcg-Umeclid 62.5 Mcg-Vilant 25 Mcg Inhalat.Powder] (Fluticasone Fur. 100 Mcg-Umeclid 62.5 Mcg-Vilant ) 100-62.5-25 mcg blister with device Active 1 EACH INHALATION DAILY September 20, 2023 12:00am Start: 07-23-2023 End: 12-13-2024 take 1 puff(s) by inhalation once daily jurpndzqcot-fifgmkrcs-fbiulgib (TRELEGY ELLIPTA) 100-62.5-25 mcg inhalation powder Indications: [place] (obstructive sleep apnea) Inhale 1 Puff as instructed once daily. 1 Each 07/05/2024 12/13/2024 Discontinued Comment on above: Inhale 1 Puff as ins tructed once daily. Lactobacillus Combination No.4 (Probiotic) 1 EACH capsule (7 sources) Start: 03-23-20 14 End: 10-25-19 take 1 capsule by mouth once daily Lactobacillus Combination No.4 (Probiotic) 1 EACH capsule Discontinued 1 NMA PO DAILY March 23, 2014 1:00am October 24, 2021 3:15pm Start: 03-23-2014 End: 10-24-2021 take 1 capsule [...] One tablet by mouth daily MULTIPLE VITAMINS-MINERALS [id number] Natalie Juarez RN MULTIPLE VITAMINS-MINERALS (1 source) Start: 08-19-2016 take 1 tablet by mouth once daily NINA MULTIVITAMIN FOR MEN TABS One tablet by mouth daily MULTIPLE VITAMINS-MINERALS [id number] Natalie Juarez RN Multivitamin With Folic Acid (Thera) 1 TABLET tablet (7 sources) Start: 06-16-2014 End: 10-24-2021 take 1 tablet by mouth once daily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 medications, allergies reviewed. [...] pain 04/18/2019 Chronic low back pain 12/14/2015 Diverticulosis of colon 06/24/2018 Elevated fasting blood [...] capsule by mouth one time a week. budesonide-formoterol (SYMBICORT) 160-4.5 mcg/actuation inhaler Inhale 2 Puffs as instructed two times a (more content not included)... Normal [facility] 12-29-2024 [facility] Telephone (FAMPWS) TARA ARELLANO ([id number]) 1955 Date Time Provider Department 12/29/24 [facility] During your visit today, we recorded the following information about you: Suellen Chavis RN 12/29/2024 10:20 AM Signed Pt's called in about Pt's rash. Called Pt back to get better idea of what was going on. Pt had been in on 12/13/24 for a rash and was put on a steroid. Per MAR Pt should have been done with the steroid on 12/25/24. States rash isn't any better may be worse. It has spread some and is more red. It starts above waist and goes up to ribs and goes from belly button 1/[address] way to side. Pt reports it's red and raised and has some whit pencil tip bumps on it. He denies any blister like areas, open areas, or oozing. Pt reports intermittent dull pain of 4/10. He states it has been itching and he used the triamcinolone cream Dr Carrera prescribed him on it twice. Pt scheduled with Lew Bird VENEER PATCHER today at 640 pm. Suellen Chavis RN Allergies As of Date: 12/29/2024 Noted Allergy Reaction BEES 07/06/2018 4 - [...] - Swelling Comments: Localized swelling Date Reviewed: 12/13/2024 Reviewed by: Radha Ramires MA - Fully Assessed Reason for Visit: Patient Update [1234] Prescriptions as of 12/29/2024 - cholecalciferol, Vitamin D3, (VITAMIN D3) 1,250 mcg (50,000 unit) cap capsule Take 1 capsule by mouth one time a week. - budesonide-formoterol (SYMBICORT) 160-4.5 mcg/actuation inhaler Inhale 2 Puffs as instructed two times a day. - ipratropium-albuterol (DUONEB) 0.5 mg-3 mg(2.5 mg base)/3 mL nebu Inhale 3 mL as instructed every 4 hours as needed for wheezing/shortness of breath. - pravastatin (PRAVACHOL) 40 mg tablet Take [...] as needed for wheezing/shortness of breath. - baclofen 10 mg tablet Take 1 tablet by mouth at bedtime as needed (muscle spasms). - cyanocobalamin, vitamin B-12, (VITAMIN B-12 ORAL) [...] once daily. Problem List As Of Date 12/29/2024 Noted Resolved Hemorrhage of rectum and anus [...] leg cramps [G47.62] 04/06/2024 Encounter Status:Closed by SUELLEN CHAVIS on 12/29/24 [facility] Kayla 12-21-2024 CNPN Telephone (RAQUEL) TARA ARELLANO ([id number]) 1955 Date Time Provider Department 12/21/24 JUN ABBOTT During your visit today, we recorded the following information about you: Jun Abbott MSW 12/21/2024 9:09 AM Signed CHINO spoke with patient spouse and she notes that she still has [employer] P[employer] forms for patient Tre[place]. Will work on filling forms out and getting them back to to work with Dr. Gross on completing to send to [employer]. Allergies As of Date: 12/21/2024 Noted Allergy Reaction BEES 07/06/2018 4 - [...] - Swelling Comments: Localized swelling Date Reviewed: 12/13/2024 Reviewed by: Radha Ramires MA - Fully Assessed Prescriptions as of 12/21/2024 - cholecalciferol, Vitamin D3, (VITAMIN D3) 1,250 mcg (50,000 unit) cap capsule Take 1 capsule by mouth one time a week. - predniSONE (DELTASONE) 10 mg tablet Take 4 tablets by mouth once daily for 3 days, THEN 3 tablets once daily for 3 days, THEN 2 tablets once daily for 3 days, THEN 1 tablet once daily for 3 days. - budesonide-formoterol (SYMBICORT) 160-4.5 mcg/actuation inhaler Inhale 2 Puffs as instructed two times a day. - ipratropium-albuterol (DUONEB) 0.5 mg-3 mg(2.5 mg base)/3 mL nebu Inhale 3 mL as instructed every 4 hours as needed for wheezing/shortness of breath. - pravastatin (PRAVACHOL) 40 mg tablet Take [...] as needed for wheezing/shortness of breath. - baclofen 10 mg tablet Take 1 tablet by mouth at bedtime as needed (muscle spasms). - cyanocobalamin, vitamin B-12, (VITAMIN B-12 ORAL) [...] once daily. Problem List As Of Date 12/21/2024 Noted Resolved Hemorrhage of rectum and anus [...] 04/06/2024 Encounter Status:Closed by JUN ABBOTT on 12/21/24 [facility] CNOVon 12-13-2024 CNOV Office Visit (FAMPWS ) TARA ARELLANO Alfonzo ([id number]) 1955 M Date Time Provider Department 12/13/24 9:00 AM LEW BIRD During your visit today, we recorded the following information about you: Pulse Blood pressure Weight 76/minute 112/68 82 kg Lew Bird APRN.VOLLEYBALL PLAYER 12/13/2024 9:08 AM Signed Chief Complaint Patient presents with: 6 Month Exam HPI Tara Arellano is a 69 year old male who presents here today for Above Complaints.. Patient presents for routine follow up. Patient reports itchy painful rash to abdomen 3-4 months. Patient also reports he hit his head on equipment on and since then he has had some headaches and fatigue. Past medical history, appointments, medications, allergies reviewed. [...] pain 04/18/2019 Chronic low back pain 12/14/2015 Diverticulosis of colon 06/24/2018 Elevated fasting blood [...] on File Prior to Visit Medication Sig predniSONE (DELTASONE) 20 mg tablet Take two orally daily for 5 days budesonide-formoterol (SYMBICORT) 160-4.5 mcg/actuation inhaler Inhale 2 Puffs as instr (more content not included)... Normal [facility] CT BRAIN WO IVCONon 12-14-[address] BRAIN WO IVCON * * *Final Report* * * DATE OF EXAM: Dec 13 2024 12:35PM [facility] 0504 - CT BRAIN WO IVCON / PROCEDURE REASON: S09.90XA-Injury of head, initial encounter * * * * Physician Interpretation * * * * EXAMINATION: CT BRAIN WO IVCON CLINICAL HISTORY: Injury of head. TECHNIQUE: Serial axial images without IV contrast were obtained from the vertex to the foramen magnum. MQ: CTBWO_3 CT Radiation dose: Integrated Dose-Length Product (DLP) for this visit = 740 mGy*cm CT Dose Reduction Employed: Automated exposure control(AEC) and iterative recon COMPARISON: None. RESULT: Post-operative change: None. Acute change: No evidence of an acute infarct or other acute parenchymal process. Hemorrhage: No evidence of acute intracranial hemorrhage. ECASS hemorrhagic transformation score: Not Applicable Mass Lesion / Mass Effect: There is no evidence of an intracranial mass or extraaxial fluid collection. No significant mass effect. Chronic change: Scattered patchy foci of low attenuation are present within the supratentorial white matter, a nonspecific finding that most commonly represents mild small vessel disease. Parenchyma: There is no significant volume loss. The brain parenchyma is otherwise within normal limits for age. Ventricles: The ventricles are within normal limits of size and configuration for age. Paranasal sinuses and skull base: The visualized paranasal sinuses are grossly clear. The skull base and imaged soft tissues are unremarkable. Localizer images: Unremarkable. IMPRESSION: NO EVIDENCE OF AN ACUTE INTRACRANIAL PROCESS Spool Sorter: PSCB Transcribe Date/Time: Dec 13 2024 12:36P Dictated by : DARIO BAUGH MD This examination was interpreted and the report reviewed and electronically signed by: DARIO BAUGH MD on Dec 13 2024 12:45PM EST [id number] [facility] CT Head WO contraston 2024 IMPRESSION: NO EVIDENCE OF AN ACUTE INTRACRANIAL PROCESS Spool Sorter: PSC Transcribe Date/Time: Dec 13 2024 12:36P Dictated by : DARIO BAUGH MD This examination was interpreted and the report reviewed and electronically signed by: DARIO BAUGH MD on Dec 13 2024 12:45PM [facility] * * *Final Report* * * DATE OF EXAM: Dec 13 2024 12:35PM [facility] 0504 - CT BRAIN WO IVCON / PROCEDURE REASON: S09.90XA-Injury of head, initial encounter * * * * Physician Interpretation * * * * EXAMINATION: CT BRAIN WO IVCON CLINICAL HISTORY: Injury of head. TECHNIQUE: Serial axial images without IV contrast were obtained from the vertex to the foramen magnum. MQ: CTBWO_3 CT Radiation dose: Integrated Dose-Length Product (DLP) for this visit = 740 mGy*cm CT Dose Reduction Employed: Automated exposure control(AEC) and iterative recon COMPARISON: None. RESULT: Post-operative change: None. Acute change: No evidence of an acute infarct or other acute parenchymal process. Hemorrhage: No evidence of acute intracranial hemorrhage. ECASS hemorrhagic transformation score: Not Applicable Mass Lesion / Mass Effect: There is no evidence of an intracranial mass or extraaxial fluid collection. No significant mass effect. Chronic change: Scattered patchy foci of low attenuation are present within the supratentorial white matter, a nonspecific finding that most commonly represents mild small vessel disease. Parenchyma: There is no significant volume loss. The brain parenchyma is otherwise within normal limits for age. Ventricles: The ventricles are within normal limits of size and configuration for age. Paranasal sinuses and skull base: The visualized paranasal sinuses are grossly clear. The skull base and imaged soft tissues are unremarkable. Localizer images: Unremarkable. [facility] Provider, [facility] - 12/13/2024 * * *Final Report* * * DATE OF EXAM: Dec 13 2024 12:35PM [facility] 0504 - CT BRAIN WO IVCON / PROCEDURE REASON: S09.90XA-Injury of head, initial encounter * * * * Physician Interpretation * * * * EXAMINATION: CT BRAIN WO IVCON CLINICAL HISTORY: Injury of head. TECHNIQUE: Serial axial images without IV contrast were obtained from the vertex to the foramen magnum. MQ: CTBWO_3 CT Radiation dose: Integrated Dose-Length Product (DLP) for this visit = 740 mGy*cm CT Dose Reduction Employed: Automated exposure control(AEC) and iterative recon COMPARISON: None. RESULT: Post-operative change: None. Acute change: No evidence of an acute infarct or other acute parenchymal process. Hemorrhage: No evidence of acute intracranial hemorrhage. ECASS hemorrhagic transformation score: Not Applicable Mass Lesion / Mass Effect: There is no evidence of an intracranial mass or extraaxial fluid collection. No significant mass effect. Chronic change: Scattered patchy foci of low attenuation are present within the supratentorial white matter, a nonspecific finding that most commonly represents mild small vessel disease. Parenchyma: There is no significant volume loss. The brain parenchyma is otherwise within normal limits for age. Ventricles: The ventricles are within normal limits of size and configuration for age. Paranasal sinuses and skull base: The visualized paranasal sinuses are grossly clear. The skull base and imaged soft tissues are unremarkable. Localizer images: Unremarkable. IMPRESSION IMPRESSION: NO EVIDENCE OF AN ACUTE INTRACRANIAL PROCESS Spool Sorter: PSCB Transcribe Date/Time: Dec 13 2024 12:36P Dictated by : DARIO BAUGH MD This examination was interpreted and the report reviewed and electronically signed by: DARIO BAUGH MD on Dec 13 2024 12:45PM [facility] Study observation (narrative) Grace diaz [facility] CT Head WO contrastOrdered B y: [facility] Provider on 12-13-2024 [facility] HbA1c (Bld)on 12-13-2024 Average glucose Estimated from glycated hemoglobin (Bld) [Mass/Vol] 105 mg/dL Normal [facility] Comment on above: Order Comment: Geo fernandez Type: BLOOD SPECIMENOrdering Facility: [facility] Address: [address] [place] [address] Result Comment: eAG: (Estimated average glucose) is a calculated value from HgbA1c and is utility sales representative of the average blood glucose level in the last 2-3 month period. Performed By: #### 5 5454-3 ####[facility] [id number] [place] [address] [place] HbA1c (Bld) [Mass fraction] 5.3 % Normal 4.3-5.6 [facility] Comment on above: Order Comment: Geo fernandez Type: BLOOD SPECIMENOrdering Facility: [facility] Address: [address] [place] [address] Result Comment: Amer ican Diabetes Association guidelines indicate that patients with HgbA1c in the range 5.7-6.4% are at increased risk for development of diabetes, and intervention by lifestyle modification may be beneficial. HgbA1c greater or equal to 6.5% is considered diagnostic of diabetes. Performed By: #### 5 5454-3 ####[facility] [id number] [place] [address] [place] LIPID PANEL, NONFASTINGon Cholesterol [Mass/Vol] 160 mg/dL Normal <200 [facility] Comment on above: Order Comment: Geo fernandez Type: BLOOD SPECIMENOrdering Facility: [facility] Address: [address] [place] [address] Result Comment: <200 mg/dL, Desirable 200-239 mg/dL, Borderline high >239 mg/dL, High Performed By: #### L IPNF ####[facility] [id number] [place] [id number] [place] HDL CHOLESTEROL, NF 36 mg/dL Low >39 [facility] Comment on above: Order Comment: Speccristiano fernandez Type: BLOOD SPECIMENOrdering Facility: [facility] Address: [address] [place] [address] Result Comment: 40-5 9 mg/dL, Acceptable >59 mg/dL, High: Negative risk factor for coronary heart disease <40 mg/dL, Low: Positive risk factor for coronary heart disease Performed By: #### L IPNF ####[facility] [id number] [address] LDL CHOLESTEROL CALCULATED, NF 85 mg/dL Normal <100 [facility] Comment on above: Order Comment: Geo fernandez Type: BLOOD SPECIMENOrdering Facility: [facility] Address: [address] [place] [address] Result Comment: <100 mg/dL, Optimal 100-129 mg/dL, Near optimal/above optimal 130-159 mg/dL, Borderline high 160-189 mg/dL, High >189 mg/dL, Very high Secondary prevention optimal LDL Cholesterol levels are recommended to be <70 mg/dL LDL cholesterol is calculated using the Thao-NIH equation. Performed By: #### L IPNF ####[facility] [id number] [address] STATES OF [facility] LDL/HDL RATIO, NF 2.36 mg/dL Normal <2.54 [facility] Comment on above: Order Comment: Geo fernandez Type: BLOOD SPECIMENOrdering Facility: [facility] Address: [address] [place] [address] Result Comment: Abhinav arndt: 1. National Cholesterol Education Program ATP III Guideline At-A-Glance Quick Desk Reference: National Heart, Lung, and Blood [place]. National Institutes of Health. 2001: NIH Publication No. 01-3305. 2. An International Atherosclerosis Society position paper: global recommendations for the management of dyslipidemia: executive summary, Atherosclerosis. 2014: 232(2):410-413. Performed By: #### L IPNF ####[facility] [id number] [address] [place] NON HDL CHOL, NF 124 mg/dL Normal <130 [facility] Comment on above: Order Comment: Speci men Type: BLOOD SPECIMENOrdering Facility: [facility] Address: [address] [place] [address] Result Comment: <130 mg/dL, Optimal 130-159 mg/dL, Near optimal/above optimal 160-189 mg/dL, Borderline high 190-219 mg/dL, High >219 mg/dL, Very high Secondary prevention optimal non HDL Cholesterol levels are recommended to be <100 mg/dL Performed By: #### L IPNF ####[facility] [id number] [address] [place] T CHOL/HDL RATIO NF 4.44 mg/dL Normal <5.10 [facility] Comment on above: Order Comment: Speci men Type: BLOOD SPECIMENOrdering Facility: [facility] Address: [address] [place] [address] Performed By: #### L IPNF ####[facility] [id number] [place] [address] [place] TRIGLYCERIDES, NF 232 mg/dL High <150 [facility] Comment on above: Order Comment: Speci men Type: BLOOD SPECIMENOrdering Facility: [facility] Address: [address] [place] [address] Result Comment: <150 mg/dL, Normal 150-199 mg/dL, Borderline high 200-499 mg/dL, High >499 mg/dL, Very high Performed By: #### L IPNF ####[facility] [id number] [place] [address] [place] VLDL CHOLESTEROL, NF 37 mg/dL High <30 [facility] Comment on above: Order Comment: Speci men Type: BLOOD SPECIMENOrdering Facility: [facility] Address: [address] [place] [address] Performed By: #### L IPNF ####[facility] [id number] [address] [address] [place] Culture, Blood (WB)on 2024 CUB Blood cultures x2, f rom two different sites No growth in 5 days. Normal [facility] Comment on above: Performed By: #### M 200.1000 #### [facility] [address] [place], [address] Performed By: #### L 500.4050, L300.4310, L100.0100, L300.3900, L503.6005, M200.1000 ####[facility] [address] [place], [address] Absolute lymphocyte countOrd ered By: Fredo Smiley on 2024 Lymphocytes Auto (Unsp spec) [#/Vol] 1.06 10*3/uL 0.83-4.51 [facility] Absolute neutrophil countOrd ered By: Fredo Smiley on 2024 Neutrophils (Bld) [#/Vol] 3.5 10*3/uL 2.0-7.7 [facility] Activated partial thrombopla stin time (aPTT) in platelet poor plasma by coagulation aOrdered By: Fredo Smiley on 2024 aPTT Coag (PPP) [Time] 35.9 s 24.1-36.2 [facility] Anion gap in Serum or Plasma Ordered By: Fredo Smiley on 2024 Anion gap [Moles/Vol] 12 mmol/L 5-15 [facility] Automated lymphocyte count a s percentage of total leukocytesOrdered By: Fredo Smiley on 2024 Lymphocytes/100 WBC Auto (Unsp spec) 20.2 % 19-41 [facility] BUN/creatinine ratioOrdered By: Fredo Smiley on 2024 Urea nitrogen/Creatinine [Mass ratio] 15.5 mg/mg 10-20 [facility] Basophil percentageOrdered B y: Fredo Smiley on 2024 Basophils/100 WBC (Bld) 0.8 % 0-1 [facility] Bilirubin, totalOrdered By: Fredo Smiley on 2024 Bilirubin [Mass/Vol] 0.27 mg/dL 0.00-1.30 [facility] CBC W/Diff, Automatedon Absolute Lymph 1.06 X10 3/uL Normal 0.83-4.51 [facility] Comment on above: Performed By: #### L 500.4050, L300.4310, L100.0100, L300.3900, L503.6005, M200.1000 #### [facility] [address] [place], [address] Absolute Neut 3.5 X10 3/uL Normal 2.0-7.7 [facility] Comment on above: Performed By: #### L 500.4050, L300.4310, L100.0100, L300.3900, L503.6005, M200.1000 #### [facility] [address] [place], [address] Basophils/100 WBC (Bld) 0.8 % Normal 0-1 [facility] Comment on above: Performed By: #### L 500.4050, L300.4310, L100.0100, L300.3900, L503.6005, M200.1000 #### [facility] [address] [place], [address] Eosinophils/100 WBC (Bld) 3.4 % Normal 0-5 [facility] Comment on above: Performed By: #### L 500.4050, L300.4310, L100.0100, L300.3900, L503.6005, M200.1000 #### [facility] [address] [place], [address] Erythrocyte distribution width (RBC) [Ratio] 12.2 % Normal 11.6-14.6 [facility] Comment on above: Performed By: #### L 500.4050, L300.4310, L100.0100, L300.3900, L503.6005, M200.1000 #### [facility] [address] [place], [address] Hematocrit (Bld) [Volume fraction] 37.9 % Low 40-54 [facility] Comment on above: Performed By: #### L 500.4050, L300.4310, L100.0100, L300.3900, L503.6005, M200.1000 #### [facility] [address] [place], [address] Hemoglobin (Bld) [Mass/Vol] 13.0 g/dL Normal 13.0-16.5 [facility] Comment on above: Performed By: #### L 500.4050, L300.4310, L100.0100, L300.3900, L503.6005, M200.1000 #### [facility] [address] [place], [address] IG% 0.600 Normal 0.0-0.9 [facility] Comment on above: Result Comment: IG% - Immature Granulocytes (promyelocytes, myelocytes and metamyelocytes) > 1% indicates that a LEFT SHIFT is Present. Performed By: #### L 500.4050, L300.4310, L100.0100, L300.3900, L503.6005, M200.1000 #### [facility] [address] [place], [address] Lymphocytes/100 WBC (Bld) 20.2 % Normal 19-41 [facility] Comment on above: Performed By: #### L 500.4050, L300.4310, L100.0100, L300.3900, L503.6005, M200.1000 #### [facility] [address] [place], [address] MCH (RBC) [Entitic mass] 30.2 pg Normal 27.0-32.0 [facility] Comment on above: Performed By: #### L 500.4050, L300.4310, L100.0100, L300.3900, L503.6005, M200.1000 #### [facility] [address] [place], [address] MCHC (RBC) [Mass/Vol] 34.3 g/dL Normal 32-36 [facility] Comment on above: Performed By: #### L 500.4050, L300.4310, L100.0100, L300.3900, L503.6005, M200.1000 #### [facility] [address] [place], [address] MCV (RBC) [Entitic vol] 87.9 fL Normal 80-94 [facility] Comment on above: Performed By: #### L 500.4050, L300.4310, L100.0100, L300.3900, L503.6005, M200.1000 #### [facility] [address] [place], [address] Monocytes/100 WBC (Bld) 7.6 % Normal 0-10 [facility] Comment on above: Performed By: #### L 500.4050, L300.4310, L100.0100, L300.3900, L503.6005, M200.1000 #### [facility] [address] [place], [address] Neutrophils/100 WBC (Bld) 67.4 % Normal 47-70 [facility] Comment on above: Performed By: #### L 500.4050, L300.4310, L100.0100, L300.3900, L503.6005, M200.1000 #### [facility] [address] [place], [address] Nucleated RBC (Bld) [#/Vol] 0 10*3/uL Normal 0-5 [facility] Comment on above: Performed By: #### L 500.4050, L300.4310, L100.0100, L300.3900, L503.6005, M200.1000 #### [facility] [address] [place], [address] Platelet mean volume (Bld) [Entitic vol] 8.3 fL Normal 6.2-12.0 [facility] Comment on above: Performed By: #### L 500.4050, L300.4310, L100.0100, L300.3900, L503.6005, M200.1000 #### [facility] [address] [place], [address] Platelets (Bld) [#/Vol] 337 10*3/uL Normal 150-450 [facility] Comment on above: Performed By: #### L 500.4050, L300.4310, L100.0100, L300.3900, L503.6005, M200.1000 #### [facility] [address] [place], [address] RBC (Bld) [#/Vol] 4.31 10*6/uL Low 4.6-6.2 [facility] Comment on above: Performed By: #### L 500.4050, L300.4310, L100.0100, L300.3900, L503.6005, M200.1000 #### [facility] [address] [place], [address] RDW SD 39.1 fl Normal 35.1-43.9 [facility] Comment on above: Performed By: #### L 500.4050, L300.4310, L100.0100, L300.3900, L503.6005, M200.1000 #### [facility] [address] [place], [address] WBC (Bld) [#/Vol] 5.3 10*3/uL Normal 4.4-11.[address] [facility] Comment on above: Performed By: #### L 500.4050, L300.4310, L100.0100, L300.3900, L503.6005, M200.1000 #### [facility] [address] [place], [address] Carbon dioxide, total [Moles /volume] in Central venous bloodOrdered By: Fredo Smiley on 2024 CO2 [Moles/Vol] 22.5 mmol/L 21.0-32.0 [facility] Chloride assayOrdered By: Ralph Smiley on 2024 Chloride [Moles/Vol] 105 mmol/L 98-108 [facility] Comprehensive Metabolic Prof ilon 2024 Albumin [Mass/Vol] 4.2 g/dL Normal 3.4-4.[address] [facility] Comment on above: Performed By: #### L 500.4050, L300.4310, L100.0100, L300.3900, L503.6005, M200.1000 ####[facility] [address] [place], [address] Albumin/Globulin [Mass ratio] 1.5 {ratio} Normal 0.9-2.4 [facility] Comment on above: Performed By: #### L 500.4050, L300.4310, L100.0100, L300.3900, L503.6005, M200.1000 ####[facility] [address] [place], [address] ALK PHOS 112 U/L Normal 40-129 [facility] Comment on above: Performed By: #### L 500.4050, L300.4310, L100.0100, L300.3900, L503.6005, M200.1000 ####[facility] [address] [place], [address] ALT [Catalytic activity/Vol] 34 U/L Normal <=46 [facility] Comment on above: Performed By: #### L 500.4050, L300.4310, L100.0100, L300.3900, L503.6005, M200.1000 ####[facility] [address] [place], [address] AST [Catalytic activity/Vol] 33 U/L Normal <=37 [facility] Comment on above: Performed By: #### L 500.4050, L300.4310, L100.0100, L300.3900, L503.6005, M200.1000 ####[facility] [address] [place], [address] Bilirubin [Mass/Vol] 0.27 mg/dL Normal 0.00-1.30 [facility] Comment on above: Performed By: #### L 500.4050, L300.4310, L100.0100, L300.3900, L503.6005, M200.1000 ####[facility] [address] [place], [address] BUN/CRE 15.5 RATIO Normal 10-20 [facility] Comment on above: Performed By: #### L 500.4050, L300.4310, L100.0100, L300.3900, L503.6005, M200.1000 ####[facility] [address] [place], [address] Calcium [Mass/Vol] 9.3 mg/dL Normal 7.6-11.[address] [facility] Comment on above: Performed By: #### L 500.4050, L300.4310, L100.0100, L300.3900, L503.6005, M200.1000 ####[facility] [address] [place], [address] Chloride [Moles/Vol] 105 mmol/L Normal 98-108 [facility] Comment on above: Performed By: #### L 500.4050, L300.4310, L100.0100, L300.3900, L503.6005, M200.1000 ####[facility] [address] [place], [address] CO2 [Moles/Vol] 22.5 mmol/L Normal 21.0-32.0 [facility] Comment on above: Performed By: #### L 500.4050, L300.4310, L100.0100, L300.3900, L503.6005, M200.1000 ####[facility] [address] [place], [address] Creatinine [Mass/Vol] 0.77 mg/dL Normal 0.70-1.20 [facility] Comment on above: Performed By: #### L 500.4050, L300.4310, L100.0100, L300.3900, L503.6005, M200.1000 ####[facility] [address] [place], [address] ECRCL 88.72 ml/min Normal 50-250 [facility] Comment on above: Performed By: #### L 500.4050, L300.4310, L100.0100, L300.3900, L503.6005, M200.1000 ####[facility] [address] [place], [address] GAP 12 Normal 5-15 [facility] Comment on above: Performed By: #### L 500.4050, L300.4310, L100.0100, L300.3900, L503.6005, M200.1000 ####[facility] [address] [place], [address] GFR/1.73 sq M.predicted among non-blacks MDRD (S/P/Bld) [Vol rate/Area] 96 mL/min/{1.73_m2} Normal >60 [facility] Comment on above: Result Comment: mL/m in/1.73m2 CKD-EPI Creatinine Equation (2020) Performed By: #### L 500.4050, L300.4310, L100.0100, L300.3900, L503.6005, M200.1000 ####[facility] [address] [place], [address] Globulin (S) [Mass/Vol] 2.8 g/dL Normal 2.2-4.2 [facility] Comment on above: Performed By: #### L 500.4050, L300.4310, L100.0100, L300.3900, L503.6005, M200.1000 ####[facility] [address] [place], [address] Glucose [Mass/Vol] 112 mg/dL High 70-[address] [facility] Comment on above: Performed By: #### L 500.4050, L300.4310, L100.0100, L300.3900, L503.6005, M200.1000 ####[facility] [address] [place], [address] Potassium [Moles/Vol] 4.4 mmol/L Normal 3.3-5.1 [facility] Comment on above: Performed By: #### L 500.4050, L300.4310, L100.0100, L300.3900, L503.6005, M200.1000 ####[facility] [address] [place], [address] Sodium [Moles/Vol] 139 mmol/L Normal 133-[address] [facility] Comment on above: Performed By: #### L 500.4050, L300.4310, L100.0100, L300.3900, L503.6005, M200.1000 ####[facility] [address] [place], [address] T PROT 7.0 g/dL Normal 5.9-8.4 [facility] Comment on above: Performed By: #### L 500.4050, L300.4310, L100.0100, L300.3900, L503.6005, M200.1000 ####[facility] [address] [place], [address] Urea nitrogen [Mass/Vol] 12 mg/dL Normal 4-19 [facility] Comment on above: Performed By: #### L 500.4050, L300.4310, L100.0100, L300.3900, L503.6005, M200.1000 ####[facility] [address] [place], [address] Emergency Department Summary on 2024 Emergency Department Summary [facility] Medical Records Department [address] [place] [address] Emergency Department Summary 11/15/24 MR#: [id number] Acct: [id number] Name: TARA ARELLANO Rep #: [id number] : 1955 69 From: Fredo Smiley MD PCP: Dr. Andry Jean-Baptiste MD Status:REG ER Location: ED HPI History of Present Illness Chief Complaint: Cellulitis Narrative Narrative: 69-year-old male presents after being seen in the emergency department 2 days ago with worsening cellulitis. He denies any fevers or chills, no increased pain but states the areas burn. He was seen in the emergency department previously with areas on his right trapezius, and right shoulder/upper extremity that were reddened. It started out smaller and has spread. He denies any nausea or vomiting or increased pain but they noticed that the redness extends further outside the lines that were drawn on his skin, especially on his neck and right trapezius. He has been taking Keflex 4 times a day. There is been no improvement and family feels like it is getting worse. [facility] Medical History Respiratory failure Coronary artery disease [...] #10 tab s 03/29/24 Unknown Rx tablet Held on 11/13/24. Instructions: Pt has been DC'd albuterol sulfate 90 mcg/actuation 2 puff inhalation Q4H PRN PRN Unknown Rx aerosol inhaler (Ventolin HFA) Wheezing #1 ea prednisone 20 mg tablet 40 mg (2 x 20 mg) PO DAILY 7 days 07/10/24 Unknown Rx #14 tabs cephalexin 500 mg capsule 500 mg PO Q6 #40 CAPSULES 11/13/24 Unknown Rx Allergy/AdvReac Type Severity Reaction Status Date / Time bee venom protein (honey bee) Allergy Intermediate Hives Verified 11/15/24 12:27 morphine Allergy Intermediate hypotension Verified 11/15/24 12:27 pneumococcal vaccine Allergy Intermediate localized Verified 11/15/24 12:27 swelling codeine Allergy Unknown Verified 11/15/24 12:27 meperidine HCl (From Demerol) Allergy Unknown Verified 11/15/24 12:27 propoxyphene HCl (From Allergy Unknown Verified 11/15/24 12:27 Darvon) propoxyphene napsylate (From Allergy Unknown Verified 11/15/24 12:27 Darvocet-N 100) atorvastatin (From Lipitor) AdvReac Intermediate leg Verifie (more content not included)... Normal [facility] Eosinophil percentageOrdered By: Fredo Smiley on 2024 Eosinophils/100 WBC (Bld) 3.4 % 0-5 [facility] Erythrocyte distribution wid th ratioOrdered By: Fredo Smiley on 2024 Erythrocyte distribution width (RBC) [Ratio] 12.2 % 11.6-14.6 [facility] Erythrocyte distribution wid th standard deviationOrdered By: Fredo Smiley on 2024 Erythrocyte distribution width (RBC) [Ratio] 39.1 fl 35.1-43.9 [facility] Glomerular filtration rate ( GFR) estimation/1.73 sq m using serum, plasma, or whole bOrdered By: Fredo Smiley on 07-08-2025 GFR/1.73 sq M.predicted among non-blacks MDRD (S/P/Bld) [Vol rate/Area] 96 mL/min/{1.73_m2} >60 [facility] Comment on above: mL/min/1.73m2 CKD-EP I Creatinine Equation (2020) Hematocrit Auto (Bld) [Volum e fraction]Ordered By: Fredo Smiley on 2024 Hematocrit (Bld) [Volume fraction] 37.9 % Low 40-54 [facility] Hemoglobin measurementOrdere d By: Fredo Smiley on 2024 Hemoglobin (Bld) [Mass/Vol] 13.0 g/dL 13.0-16.5 [facility] Immature granulocytes/100 WB C Auto (Bld)Ordered By: Fredo Smiley on 2024 Immature granulocytes/100 WBC (Bld) 0.600 % 0.0-0.9 [facility] Comment on above: IG% - Immature Granu locytes (promyelocytes, myelocytes and metamyelocytes) > 1% indicates that a LEFT SHIFT is Present. International normalized rat io (INR) calculationOrdered By: Fredo Smiley on 2024 INR Coag (Bld) [Relative time] 1.0 {INR} [facility] Laboratory - Chemistry and C hemistry - challengeOrdered By: Fredo Smiley on 2024 AST [Catalytic activity/Vol] 33 U/L <38 [facility] Lactic Acidon 2024 Lactate [Moles/Vol] 1.4 mmol/L Normal 0.0-2.0 [facility] Comment on above: Order Comment: Y Performed By: #### L 500.4050, L300.4310, L100.0100, L300.3900, L503.6005, M200.1000 ####[facility] [address] [place], [place], [id number] Lactic acid measurementOrder ed By: Fredo Smiley on 2024 Lactate [Moles/Vol] 1.4 mmol/L 0.0-2.0 [facility] MCV (mean corpuscular volume ) determinationOrdered By: Fredo Smiley on 2024 MCV (RBC) [Entitic vol] 87.9 fL 80-94 [facility] Mean corpuscular hemoglobin (MCH) determinationOrdered By: Fredo Smiley on 2024 MCH (RBC) [Entitic mass] 30.2 pg 27.0-32.0 [facility] Mean corpuscular hemoglobin concentration (MCHC) determinationOrdered By: Fredo Smiley on 2024 MCHC (RBC) [Mass/Vol] 34.3 g/dL 32-36 [facility] Mean platelet volume determi nationOrdered By: Fredo Smiley on 2024 Platelet mean volume (Bld) [Entitic vol] 8.3 fL 6.2-12.0 [facility] Monocyte percentageOrdered B y: Fredo Smiley on 2024 Monocytes/100 WBC (Bld) 7.6 % 0-10 [facility] Neutrophil percentageOrdered By: Fredo Smiley on 2024 Neutrophils/100 WBC (Bld) 67.4 % 47-70 [facility] Nucleated red blood cell per centageOrdered By: Fredo Smiley on 2024 Nucleated RBC/100 WBC (Bld) [Ratio] 0 % 0-5 [facility] Partial Thromboplast Timeon 2024 aPTT Coag (Bld) [Time] 35.9 s Normal 24.1-36.2 [facility] Comment on above: Performed By: #### L 500.4050, L300.4310, L100.0100, L300.3900, L503.6005, M200.1000 ####[facility] [address] [place], [address] Platelet countOrdered By: Ralph Smiley on 2024 Platelets (Bld) [#/Vol] 337 10*3/uL 150-450 [facility] Potassium measurement (mass/ volume)Ordered By: Fredo Smiley on 2024 Potassium (Unsp spec) [Mass/Vol] 4.4 mmol/L 3.3-5.1 [facility] Prothrombin Time w/INRon INR Coag (PPP) [Relative time] 1.0 {INR} Normal [facility] Comment on above: Performed By: #### L 500.4050, L300.4310, L100.0100, L300.3900, L503.6005, M200.1000 #### [facility] [address] [place], [place], [id number] PT Coag (PPP) [Time] 13.3 s Normal 11.7-14.9 [facility] Comment on above: Performed By: #### L 500.4050, L300.4310, L100.0100, L300.3900, L503.6005, M200.1000 #### [facility] [address] [place], [place], [id number] Prothrombin timeOrdered By: Fredo Smiley on 2024 PT Coag (PPP) [Time] 13.3 s 11.7-14.9 [facility] RBC Auto (Bld) [#/Vol]Ordere d By: Fredo Smiley on 2024 RBC (Bld) [#/Vol] 4.31 10*6/uL Low 4.6-6.2 [facility] Serum creatinine measurement (mass/volume)Ordered By: Fredo Smiley on 2024 Creatinine [Mass/Vol] 0.77 mg/dL 0.70-1.20 [facility] Serum globulin measurementOr dered By: Fredo Smiley on 2024 Globulin (S) [Mass/Vol] 2.8 g/dL 2.2-4.2 [facility] Serum glucose measurement (m ass/volume)Ordered By: Fredo Smiley on 2024 Glucose [Mass/Vol] 112 mg/dL High 70-[address] [facility] Serum or plasma alanine boykin otransferase (ALT) measurementOrdered By: Fredo Smiley on 2024 ALT [Catalytic activity/Vol] 34 U/L <47 [facility] Serum or plasma albumin adair urement (mass/volume)Ordered By: Fredo Smiley on 2024 Albumin [Mass/Vol] 4.2 g/dL 3.4-4.[address] [facility] Serum or plasma albumin/glob ulin mass ratioOrdered By: Fredo Smiley on 2024 Albumin/Globulin [Mass ratio] 1.5 {ratio} 0.9-2.4 [facility] Serum or plasma alkaline sarai sphatase measurementOrdered By: Fredo Smiley on 2024 ALP [Catalytic activity/Vol] 112 U/L 40-129 [facility] Serum or plasma calcium adair urement (mass/volume)Ordered By: Fredo Smiley on 2024 Calcium [Mass/Vol] 9.3 mg/dL 7.6-11.[address] [facility] Serum or plasma urea nitroge n measurement (mass/volume)Ordered By: Fredo Smiley on 2024 Urea nitrogen [Mass/Vol] 12 mg/dL 4-19 [facility] Sodium levelOrdered By: Fredo Smiley on 2024 Sodium [Moles/Vol] 139 mmol/L 133-[address] [facility] Total proteinOrdered By: Sagrario Smiley on 2024 Protein [Mass/Vol] 7.0 g/dL 5.9-8.[address] [facility] White blood cell (WBC) count Ordered By: Fredo Smiley on 2024 WBC (Bld) [#/Vol] 5.3 10*3/uL 4.4-11.[address] [facility] Emergency Department Summary on 11-13-2024 Emergency Department Summary [facility] Medical Records Department [address] [place] [address] Emergency Department Summary 11/13/24 MR#: [id number] Acct: [id number] Name: TARA ARELLANO Alfonzo Rep #: [id number] : 1955 68 From: Maycol Olivares MD PCP: Dr. Andry Jean-Baptiste MD Status:REG ER Location: ED HPI History of Present Illness Chief Complaint: Rash Informant: patient Onset/Context/Timing Onset: Days Context: Gradual Onset Timing: Continuous Current Severity: Mild Maximum Severity: Mild Narrative Narrative: 78-year-old male history of CAD and COPD. Has had redness to his right arm for about 7 days somewhat uncomfortable. Denies fever or chills. She does a lot of outside work but he does not remember getting bit or stung by anything. No prior history of cellulitis. Prior similar symptoms: No Recent Illness/Hospitalization: No PFSH PFSH Medical History Respiratory failure Coronary artery [...] #10 tab s 03/29/24 Unknown Rx tablet Held on 11/13/24. Instructions: Pt has been DC'd albuterol sulfate 90 mcg/actuation 2 puff inhalation Q4H PRN PRN Unknown Rx aerosol inhaler (Ventolin HFA) Wheezing #1 ea prednisone 20 mg tablet 40 mg (2 x 20 mg) PO DAILY 7 days 07/10/24 Unknown Rx #14 tabs cephalexin 500 mg capsule 500 mg PO Q6 #40 CAPSULES 11/13/24 Unknown Rx Allergy/AdvReac Type Severity Reaction Status Date / Time bee venom protein (honey bee) Allergy Intermediate Hives Verified 11/13/24 17:52 morphine Allergy Intermediate hypotension Verified 11/13/24 17:52 pneumococcal vaccine Allergy Intermediate localized Verified 11/13/24 17:52 swelling codeine Allergy Unknown Verified 11/13/24 17:52 meperidine HCl (From Demerol) Allergy Unknown Verified 11/13/24 17:52 propoxyphene HCl (From Allergy Unknown Verified 11/13/24 17:52 Darvon) propoxyphene napsylate (From Allergy Unknown Verified 11/13/24 17:52 Darvocet-N 100) atorvastatin (From Lipitor) AdvReac Intermediate leg Verified 11/13/24 17:52 weakness Family History Mother Diabetes CHF (congestive heart failure) Hypertension Colon cancer Father Cancer (more content not included)... [facility] Office Visit (PULMWS ) TARA ARELLANO ([id number]) 1955 M Date Time Provider Department 09/09/24 10:30 AM TERI GROSS PULMWS During your visit today, we recorded the following information about you: Temperature Pulse Respiration Blood pressure 97 degrees 82/minute 20/minute 128/72 Weight 81.6 kg Teri Gross MD 09/09/2024 4:35 PM Signed . [facility] [place] Note Patient name: Tara Arellano PCP: Andry [...] weak. Morphine Other: See Comments hypotension Pneumococcal 23-Snian* Swelling Localized swelling budesonide-formoterol (SYMBICORT) 160-4.5 mcg/actuation inhaler Inhale 2 Puffs as instructed two times a day. ipratropium-albuterol (DUONEB) 0.5 mg-3 mg(2.5 mg base)/3 mL nebu Inhale 3 mL as instructed every 4 hours as needed for wheezing/shortness of breath. levoFLOXacin (LEVAQUIN) 500 mg tablet Take 1 tablet by mouth once daily for 7 days. hsgbjgzpbpi-fvlsjxoxa-zrlyg ter (TRELEGY ELLIPTA) 100-62.5-25 mcg inhalation powder [...] triamcinolone acetoni (more content not included)... [facility] Telephone (RAQUEL) TARA ARELLANO ([id number]) 1955 M Date Time Provider Department 09/09/24 JUN ABBOTT During your visit today, we recorded the following information about you: Jun Abbott MSW 09/09/2024 12:15 PM Signed Sw spoke with patient regarding [facility] PAP for Trelegy. Discussed out of pocket spend out amount at pharmacy and income guidelines for program. Patient and spouse asked that Sw mail application to patient home. [place] confirmed address and placed application in the mail. [place] discuss completing patient portion and bringing back [...] as needed for wheezing/shortness of breath. - nhyxjmrafte-puduyulcd-lmpkd ter (TRELEGY ELLIPTA) 100-62.5-25 mcg inhalation powder [...] Encounter Status:Closed by JUN ABBOTT on 09/09/24 [facility] Kayla 09-07-2024 CNPN Telephone (JARETH) TARA ARELLANO ([id number]) 1955 M Date Time Provider Department 09/07/24 [...] to the pharmacy it should go to [facility] in [place]. Allergies As of Date: 09/07/2024 Noted Allergy [...] as needed for wheezing/shortness of breath. - ecifhiiwhyh-nsovrrxwx-lsqog ter (TRELEGY ELLIPTA) 100-62.5-25 mcg inhalation powder [...] 08/29/2020 Encount (more content not included)... Normal [facility] CNOVon 08-18-2024 CNOV Office Visit (FAMPWS ) TARA ARELLANO ([id number]) 1955 M Date Time Provider Department 08/18/24 11:40 AM JAIMIE JETT FAMPWS During your visit today, we recorded the following information about you: Temperature Pulse Blood pressure Weight 97.6 degrees 76/minute 128/72 83.9 kg Jaimie Jett APRN.[employer] 08/18/2024 11:35 AM Signed This is a [...] HFA, VENT (more content not included)... Normal [facility] ([id number]) 1955 M Date Time Provider Department 08/18/24 [facility] During your visit today, we recorded the following information about you: Peterson Boggs RN 08/18/2024 10:08 AM Signed Pt's Sola calling [...] swelling Date Reviewed: 07/14/2024 Reviewed by: Gwen Hernandez LPN - Fully Assessed Reason for Visit: scratch left lower arm [Other] Prescriptions as of 08/18/2024 - budesonide-formoterol (SYMBICORT) 160-4.5 mcg/actuation inhaler Inhale 2 Puffs as instructed two times a day. - ipratropium-albuterol (DUONEB) 0.5 mg-3 mg(2.5 mg base)/3 mL nebu Inhale 3 mL as instructed every 4 hours as needed for wheezing/shortness of breath. - rexulsumsqx-nbjyntlmz-teysu ter (TRELEGY ELLIPTA) 100-62.5-25 mcg inhalation powder [...] Encounter Status:Closed by PETERSON BOGGS on 08/18/24 [facility] CAROTID ARTERIES RAQUEL [facility]on 07-20-2024 [place] [...] interpretation criteria are used as recommended by [facility]. When compared with the prior [...] noted. Subclavian artery: Patent. Technologist: Tisha Golden RVT [facility] Ordering physician: ANDRY JEAN-BAPTISTE Interpreting physician: RAQUEL Costa DO Final CC [facility] Image : [id number] See Link below for Image Normal [facility] CNOVon 07-14-2024 CNOV Office Visit (PULMWS ) TARA ARELLANO ([id number]) 1955 M Date Time Provider Department 07/14/24 10:00 AM TERI GROSS PULMWS During your visit today, we recorded the following information about you: Pulse Respiration Blood pressure Weight 81/minute 16/minute 132/70 83.9 kg Teri Gross MD 07/14/2024 2:10 PM Signed . [facility] [place] Note Patient name: Tara Arellano PCP: Adnry Jean-Baptiste MD CC: COPD and lung nodules HPI: Tara Arellano 68 year old male former 31-mazr-dcuh smoker quitting in 2001 with PMH significant [...] unspecified as (more content not included)... Normal [facility] Zinc SerPl-mCncon 07-14-2024 Zinc [Mass/Vol] 85 ug/dL Normal 60-120 [facility] Comment on above: Order Comment: Speci men Type: BLOOD SPECIMENOrdering Facility: [facility] Address: [address] [place] [address] Result Comment: This test was developed, and its performance characteristics determined by the [facility] Department of Pathology and Laboratory Medicine. It has not been cleared or approved by the FDA. The [facility] Department of Pathology and Laboratory Medicine is regulated under CLIA as qualified to perform high-complexity testing. This test is used for clinical purposes. It should not be regarded as investigational or for research. Performed By: #### 5 763-8 ####[place] [facility] [id number] [place] [address] [place] 12 Lead EKGon 07-10-2024 12 Lead EKG [facility] Cardiovascular Services [address] [place] [address] 12 Lead EKG 07/10/24 1529 MR#: [id number] Acct: [id number] Name: TARA ARELLANO Rep #: [id number] : 1955 68 From: Anival Ivey MD [...] change was found Confirmed by Anival Ivey ([id number]), market editor HANNA DURANT ([id number]) on 07/11/2024 9:48:25 AM Referred By: Jamin/jack Confirmed By: Ainval Ivey 07/11/24 0948 Date Anival Ivey MD CC: Dr. Fredo Smiley MD; Dr. Adnry Jean-Baptiste MD Signed Normal [facility] Basic Metabolic Profile (BMP )on 07-10-2024 Anion gap [Moles/Vol] 10 mmol/L Normal 5-15 [facility] Comment on above: Performed By: #### L 500.2500, L503.7505, L100.0100 ####[facility] [address] [place], [address] BUN/CRE 15.9 RATIO Normal 10-20 [facility] Comment on above: Performed By: #### L 500.2500, L503.7505, L100.0100 ####[facility] [address] [place], [address] Calcium [Mass/Vol] 9.1 mg/dL Normal 7.6-11.[address] [facility] Comment on above: Performed By: #### L 500.2500, L503.7505, L100.0100 ####[facility] [address] [place], [address] Chloride [Moles/Vol] 104 mmol/L Normal 96-108 [facility] Comment on above: Performed By: #### L 500.2500, L503.7505, L100.0100 ####[facility] [address] [place], [address] CO2 [Moles/Vol] 22.8 mmol/L Normal 22.0-29.0 [facility] Comment on above: Performed By: #### L 500.2500, L503.7505, L100.0100 ####[facility] [address] [place], [address] Creatinine [Mass/Vol] 0.95 mg/dL Normal 0.70-1.20 [facility] Comment on above: Performed By: #### L 500.2500, L503.7505, L100.0100 ####[facility] [address] [place], [address] ECRCL 75.77 ml/min Normal 50-250 [facility] Comment on above: Performed By: #### L 500.2500, L503.7505, L100.0100 ####[facility] [address] [place], [address] GFR/1.73 sq M.predicted among non-blacks MDRD (S/P/Bld) [Vol rate/Area] 87 mL/min/{1.73_m2} Normal >60 [facility] Comment on above: Result Comment: mL/m in/1.73m2 CKD-EPI Creatinine Equation (2020) Performed By: #### L 500.2500, L503.7505, L100.0100 ####[facility] [address] [place], [address] Glucose [Mass/Vol] 131 mg/dL High 70-[address] [facility] Comment on above: Performed By: #### L 500.2500, L503.7505, L100.0100 ####[facility] [address] [place], [address] Potassium [Moles/Vol] 4.2 mmol/L Normal 3.3-5.1 [facility] Comment on above: Performed By: #### L 500.2500, L503.7505, L100.0100 ####[facility] [address] [place], [address] Sodium [Moles/Vol] 137 mmol/L Normal 133-[address] [facility] Comment on above: Performed By: #### L 500.2500, L503.7505, L100.0100 ####[facility] [address] [place], [address] Urea nitrogen [Mass/Vol] 15 mg/dL Normal 4-19 [facility] Comment on above: Performed By: #### L 500.2500, L503.7505, L100.0100 ####[facility] [address] [place], [address] CBC W/Diff, Automatedon 03-0 2-2024 Absolute Lymph 0.77 X10 3/uL Low 0.83-4.51 [facility] Comment on above: Performed By: #### L 500.2500, L503.7505, L100.0100 ####[facility] [address] [place], [address] Absolute Neut 5.6 X10 3/uL Normal 2.0-7.7 [facility] Comment on above: Performed By: #### L 500.2500, L503.7505, L100.0100 ####[facility] [address] [place], [address] Basophils/100 WBC (Bld) 0.3 % Normal 0-1 [facility] Comment on above: Performed By: #### L 500.2500, L503.7505, L100.0100 ####[facility] [address] [place], [address] Eosinophils/100 WBC (Bld) 0.1 % Normal 0-5 [facility] Comment on above: Performed By: #### L 500.2500, L503.7505, L100.0100 ####[facility] [address] [place], [address] Erythrocyte distribution width (RBC) [Ratio] 13.1 % Normal 11.6-14.6 [facility] Comment on above: Performed By: #### L 500.2500, L503.7505, L100.0100 ####[facility] [address] [place], [address] Hematocrit (Bld) [Volume fraction] 36.5 % Low 40-54 [facility] Comment on above: Performed By: #### L 500.2500, L503.7505, L100.0100 ####[facility] [address] [place], [address] Hemoglobin (Bld) [Mass/Vol] 12.6 g/dL Low 13.0-16.5 [facility] Comment on above: Performed By: #### L 500.2500, L503.7505, L100.0100 ####[facility] [address] [place], [address] IG% 0.600 Normal 0.0-0.9 [facility] Comment on above: Result Comment: IG% - Immature Granulocytes (promyelocytes, myelocytes and metamyelocytes) > 1% indicates that a LEFT SHIFT is Present. Performed By: #### L 500.2500, L503.7505, L100.0100 ####[facility] [address] [place], [address] Lymphocytes/100 WBC (Bld) 11.5 % Low 19-41 [facility] Comment on above: Performed By: #### L 500.2500, L503.7505, L100.0100 ####[facility] [address] [place], [address] MCH (RBC) [Entitic mass] 30.5 pg Normal 27.0-32.0 [facility] Comment on above: Performed By: #### L 500.2500, L503.7505, L100.0100 ####[facility] [address] [place], [address] MCHC (RBC) [Mass/Vol] 34.5 g/dL Normal 32-36 [facility] Comment on above: Performed By: #### L 500.2500, L503.7505, L100.0100 ####[facility] [address] [place], [address] MCV (RBC) [Entitic vol] 88.4 fL Normal 80-94 [facility] Comment on above: Performed By: #### L 500.2500, L503.7505, L100.0100 ####[facility] [address] [place], [address] Monocytes/100 WBC (Bld) 3.4 % Normal 0-10 [facility] Comment on above: Performed By: #### L 500.2500, L503.7505, L100.0100 ####[facility] [address] [place], [address] Neutrophils/100 WBC (Bld) 84.1 % High 47-70 [facility] Comment on above: Performed By: #### L 500.2500, L503.7505, L100.0100 ####[facility] [address] [place], [address] Nucleated RBC (Bld) [#/Vol] 0 10*3/uL Normal 0-5 [facility] Comment on above: Performed By: #### L 500.2500, L503.7505, L100.0100 ####[facility] [address] [place], [address] Platelet mean volume (Bld) [Entitic vol] 8.3 fL Normal 6.2-12.0 [facility] Comment on above: Performed By: #### L 500.2500, L503.7505, L100.0100 ####[facility] [address] [place], [address] Platelets (Bld) [#/Vol] 343 10*3/uL Normal 150-450 [facility] Comment on above: Performed By: #### L 500.2500, L503.7505, L100.0100 ####[facility] [address] [place], [address] RBC (Bld) [#/Vol] 4.13 10*6/uL Low 4.6-6.2 [facility] Comment on above: Performed By: #### L 500.2500, L503.7505, L100.0100 ####[facility] [address] [place], [address] RDW SD 42.3 fl Normal 35.1-43.9 [facility] Comment on above: Performed By: #### L 500.2500, L503.7505, L100.0100 ####[facility] [address] [place], [address] WBC (Bld) [#/Vol] 6.7 10*3/uL Normal 4.4-11.[address] [facility] Comment on above: Performed By: #### L 500.2500, L503.7505, L100.0100 ####[facility] [address] [place], [address] Chest PA and Lateralon 07-10 Chest PA and Lateral [facility] Imaging Services [address] [place] [address] Chest PA and Lateral MR#: [id number] Acct: [id number] Name: TARA ARELLANO Alfonzo Rep #: [id number] : 1955 Alfonzo Yoder From: Ronak Henderson MD PCP: Dr. Andry Jean-Baptiste MD Status: [facility] ER Study: Chest PA and Lateral Date of Exam: 07/10/24 Exam# [id number] Ordering Dr: Fredo Smiley MD PROCEDURE: CHEST [...] Fredo Smiley MD; Dr. Andry Jean-Baptiste MD Spool Sorter: Signed Normal [facility] Emergency Department Summary on 07-10-2024 Emergency Department Summary [facility] Medical Records Department [address] [place] [address] Emergency Department Summary 07/10/24 MR#: [id number] Acct: [id number] Name: TARA ARELLANO Rep #: [id number] : 1955 68 From: Fredo Smiley MD [...] usually sees Dr. 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 He ran out of his Trelegy but did have Symbicort that he is using. He denies any weight gain or leg swelling but states that he is having increased dyspnea on exertion. Of note, he and his state that they recently had COVID and that he was recently getting over pneumonia as well. [facility] Medical History Respiratory failure Coronary artery disease [...] Father Can (more content not included)... Normal [facility] L503.7505on 07-10-2024 proBNP < 36 Normal <=900 [facility] Comment on above: Result Comment: Hear t Failure Unlikely: < 300 pg/mL Heart Failure Likely < 50 Years: > 450 pg/mL 50-75 Years: > 900 pg/mL >75 Years: > 1800 pg/mL Performed By: #### L 500.2500, L503.7505, L100.0100 ####[facility] [address] [place], [address] CNOVon 07-05-2024 CNOV Office Visit (FAMPWS ) TARA ARELLANO ([id number]) 1955 M Date Time Provider Department 07/05/24 11:40 AM JAIMIE JETT During your visit today, we recorded the following information about you: Temperature Pulse Blood pressure Weight 97.8 degrees 88/minute 110/54 83.5 kg Jaimie Jett, CATIA.VOLLEYBALL PLAYER 07/05/2024 12:45 PM Signed This is a [...] 2 weeks. (more content not included)... Normal [facility] CNOVon 07-01-2024 CNOV Office Visit (FAMPWS ) TARA ARELLANO ([id number]) 1955 M Date Time Provider Department 07/01/24 1:40 PM [facility] During your visit today, we recorded the following information about you: Pulse Blood pressure Weight 82/minute 120/71 79.4 kg Lew Bird APRN.VOLLEYBALL PLAYER 07/01/2024 1:55 PM Signed Chief Complaint Patient [...] tablet Take (more content not included)... Normal [facility] Kayla 07-01-2024 JEANN Telephone ([facility]) TARA ARELLANO ([id number]) 1955 M Date Time Provider Department 07/01/24 [...] at bedtime as needed (muscle spasms). - swdcokkhxiy-vrekynsnv-mahpq ter (TRELEGY ELLIPTA) 100-62.5-25 mcg inhalation powder [...] on 07/01 (more content not included)... Normal [facility] XR CHEST 2V FRONTAL/LATon XR CHEST [...] tissues: Unremarkable. IMPRESSION: No acute radiographic abnormality. Spool Sorter: [facility] Transcribe Date/Time: Jul 01 2024 2:06P Dictated by : CONCHITA BALBUENA MD This examination was interpreted and the report reviewed and electronically signed by: CONCHITA BALBUENA MD on Jul 01 2024 2:11PM EST [id number] Normal [facility] XR Chest PA and Lateralon IMPRESSION: No acute radiographic abnormality. Spool Sorter: [facility] Transcribe Date/Time: Jul 01 2024 2:06P Dictated by : CONCHITA BALBUENA MD This examination was interpreted and the report reviewed and electronically signed by: CONCHITA BALBUENA MD on Jul 01 2024 2:11PM EST DIVISION OF RADIOLOGY * * *Final Report* [...] soft tissues: Unremarkable. DIVISION OF RADIOLOGY [facility] * * *Final Report* * [...] Unremarkable. IMPRESSION IMPRESSION: No acute radiographic abnormality. Spool Sorter: [facility] Transcribe Date/Time: Jul 01 2024 2:06P Dictated by : CONCHITA BALBUENA MD This examination was interpreted and the report reviewed and electronically signed by: CONCHITA BALBUENA MD on Jul 01 2024 2:11PM [facility] Radiology Study observation (narrative) Grace diaz [facility] XR Chest PA and LateralOrder ed By: [facility]cf Provider on 07-01-2024 [facility] CNOVon 06-21-2024 CNOV Office Visit (FAMPWS ) TARA ARELLANO ([id number]) 1955 M Date Time Provider Department 06/21/24 3:40 PM JAIMIE JETT FAMPWS During your visit today, we recorded the following information about you: Temperature Pulse Respiration Blood pressure 101.4 degrees 105/minute 14/minute 120/72 Weight 82.6 kg Jaimie Jett APRN.JEAN 06/21/2024 3:59 PM Addendum This is a [...] spasms). f (more content not included)... Normal [facility] CT CHEST WO IVCONon 06-17-19 CT [...] 3 mm left upper lobe pulmonary nodule. Spool Sorter: THONG Transcribe Date/Time: Jun 19 2024 1:22P Dictated by : KERVIN SOLIS MD This examination was interpreted and the report reviewed and electronically signed by: KERVIN SOLIS MD on Jun 19 2024 1:27PM EST [id number] Normal [facility] CNOVon 06-15-2024 CNOV Office Visit (FAMPWS ) TARA ARELLANO ([id number]) 1955 M Date Time Provider Department 06/15/24 9:40 AM [facility] During your visit today, we recorded the [...] General (Family Medicine) Lew Bird APRN.CNP as Special Weapons And Tactics Officer (Family Medicine) Irma Perez PA-C as Special Weapons And Tactics Officer (Family Medicine) Cardiology last visit 10/2023 Dr. [...] fall o (more content not included)... Normal [facility] 25(OH)D3 SerPl-ncon 2024 25-hydroxyvitamin D3 [Mass/Vol] 65.9 ng/mL Normal 31.0-80.0 [facility] Comment on above: Order Comment: Speci men Type: BLOOD SPECIMENOrdering Facility: [facility] Address: [address] [place] [address] Performed By: #### 1 989-3 ####[place] [id number] [place] [address] [place] CBC W Auto Differential pane l (Bld)on 05-23-2024 Basophils (Bld) [#/Vol] 0.04 10*3/uL Normal <0.11 [facility] Comment on above: Order Comment: Speci men Type: BLOOD SPECIMENOrdering Facility: [facility] Address: [address] [place] [address] Performed By: #### 5 7021-8 ####[facility] MARY JANE BECERRA [id number] [place] [address] [place] Basophils/100 WBC (Bld) 0.9 % Normal C [facility] Comment on above: Order Comment: Speci men Type: BLOOD SPECIMENOrdering Facility: [facility] Address: [address] [place] [address] Performed By: #### 5 7021-8 ####[facility] [id number] [place] [address] [place] Differential cell count method Nom (Bld) Auto Normal [facility] Comment on above: Order Comment: Speci men Type: BLOOD SPECIMENOrdering Facility: [facility] Address: [address] [place] [address] Performed By: #### 5 7021-8 ####[facility] [id number] [place] [address] [place] Eosinophils (Bld) [#/Vol] 0.30 10*3/uL Normal <0.46 [facility] Comment on above: Order Comment: Speci men Type: BLOOD SPECIMENOrdering Facility: [facility] Address: [address] [place] [address] Performed By: #### 5 7021-8 ####[facility] [id number] [place] [address] [place] Eosinophils/100 WBC (Bld) 6.4 % Normal [facility] Comment on above: Order Comment: Speci men Type: BLOOD SPECIMENOrdering Facility: [facility] Address: [address] [place] [address] Performed By: #### 5 7021-8 ####[facility] [id number] [place] [address] [place] Erythrocyte distribution width (RBC) [Ratio] 12.3 % Normal 11.5-15.0 [facility] Comment on above: Order Comment: Speci men Type: BLOOD SPECIMENOrdering Facility: [facility] Address: [address] [place] [address] Performed By: #### 5 7021-8 ####[facility] YOGIOLDTOWNELINOR [id number] [place] [address] [place] Hematocrit (Bld) [Volume fraction] 39.7 % Normal 39.0-51.0 [facility] Comment on above: Order Comment: Speci men Type: BLOOD SPECIMENOrdering Facility: [facility] Address: [address] [place] [address] Performed By: #### 5 7021-8 ####[facility] [id number] [place] [address] [place] Hemoglobin (Bld) [Mass/Vol] 14.0 g/dL Normal 13.0-17.0 [facility] Comment on above: Order Comment: Speci men Type: BLOOD SPECIMENOrdering Facility: [facility] Address: [address] [place] [address] Performed By: #### 5 7021-8 ####[facility] [id number] [place] [address] [place] Immature granulocytes (Bld) [#/Vol] 10*3/uL Normal <0.10 [facility] Comment on above: Order Comment: Speci men Type: BLOOD SPECIMENOrdering Facility: [facility] Address: [address] [place] [address] Performed By: #### 5 7021-8 ####[facility] [id number] [place] [address] [place] Immature granulocytes/100 WBC (Bld) 0.4 % Normal [facility] Comment on above: Order Comment: Speci men Type: BLOOD SPECIMENOrdering Facility: [facility] Address: [address] [place] [address] Performed By: #### 5 7021-8 ####[facility] MILLWNCLIA [id number] [place] [address] [place] Lymphocytes (Bld) [#/Vol] 1.43 10*3/uL Normal 1.00-4.00 [facility] Comment on above: Order Comment: Speci men Type: BLOOD SPECIMENOrdering Facility: [facility] Address: [address] [place] [address] Performed By: #### 5 7021-8 ####[facility]ENTERLIA [id number] [place] [address] [place] Lymphocytes/100 WBC (Bld) 30.4 % Normal [facility] Comment on above: Order Comment: Speci men Type: BLOOD SPECIMENOrdering Facility: [facility] Address: [address] [place] [address] Performed By: #### 5 7021-8 ####[facility] [id number] [place] [address] [place] MCH (RBC) [Entitic mass] 31.1 pg Normal 26.0-34.0 [facility] Comment on above: Order Comment: Speci men Type: BLOOD SPECIMENOrdering Facility: [facility] Address: [address] [place] [address] Performed By: #### 5 7021-8 ####[facility]ENTERLIA [id number] [place] [address] [place] MCHC (RBC) [Mass/Vol] 35.3 g/dL Normal 30.5-36.0 [facility] Comment on above: Order Comment: Speci men Type: BLOOD SPECIMENOrdering Facility: [facility] Address: [address] [place] [address] Performed By: #### 5 7021-8 ####[facility] NAPLESNCLIA [id number] [place] [address] [place] MCV (RBC) [Entitic vol] 88.2 fL Normal 80.0-100.0 C [facility] Comment on above: Order Comment: Speci men Type: BLOOD SPECIMENOrdering Facility: [facility] Address: [address] [place] [address] Performed By: #### 5 7021-8 ####[facility] [id number] [place] [address] [place] Monocytes (Bld) [#/Vol] 0.34 10*3/uL Normal <0.87 [facility] Comment on above: Order Comment: Speci men Type: BLOOD SPECIMENOrdering Facility: [facility] Address: [address] [place] [address] Performed By: #### 5 7021-8 ####[facility] [id number] [address] [place] Monocytes/100 WBC (Bld) 7.2 % Normal C [facility] Comment on above: Order Comment: Speci men Type: BLOOD SPECIMENOrdering Facility: [facility] Address: [address] [place] [address] Performed By: #### 5 7021-8 ####[facility] [id number] [place] [address] [place] Neutrophils (Bld) [#/Vol] 2.57 10*3/uL Normal 1.45-7.50 [facility] Comment on above: Order Comment: Speci men Type: BLOOD SPECIMENOrdering Facility: [facility] Address: [address] [place] [address] Performed By: #### 5 7021-8 ####[facility] [id number] [place] [address] [place] Neutrophils/100 WBC (Bld) 54.7 % Normal [facility] Comment on above: Order Comment: Speci men Type: BLOOD SPECIMENOrdering Facility: [facility] Address: [address] [place] [address] Performed By: #### 5 7021-8 ####[facility] YOGIOLDTOWNELINOR [id number] [place] [address] [place] Nucleated RBC (Bld) [#/Vol] 10*3/uL Normal <0.01 [facility] Comment on above: Order Comment: Speci men Type: BLOOD SPECIMENOrdering Facility: [facility] Address: [address] [place] [address] Performed By: #### 5 7021-8 ####[facility] [id number] [place] [address] [place] Nucleated RBC/100 WBC (Bld) [Ratio] 0.0 /100 WBC Normal [facility] Comment on above: Order Comment: Speci men Type: BLOOD SPECIMENOrdering Facility: [facility] Address: [address] [place] [address] Performed By: #### 5 7021-8 ####[facility] [id number] [place] [address] [place] Platelet mean volume (Bld) [Entitic vol] 8.4 fL Low 9.0-12.7 [facility] Comment on above: Order Comment: Speci men Type: BLOOD SPECIMENOrdering Facility: [facility] Address: [address] [place] [address] Performed By: #### 5 7021-8 ####[facility] [id number] [place] [address] [place] Platelets (Bld) [#/Vol] 227 10*3/uL Normal 150-400 [facility] Comment on above: Order Comment: Speci men Type: BLOOD SPECIMENOrdering Facility: [facility] Address: [address] [place] [address] Performed By: #### 5 7021-8 ####[facility] MILLTOWNCLIA [id number] [place] [address] [place] RBC (Bld) [#/Vol] 4.50 10*6/uL Normal 4.20-6.00 [facility] Comment on above: Order Comment: Speci men Type: BLOOD SPECIMENOrdering Facility: [facility] Address: [address] [place] [address] Performed By: #### 5 7021-8 ####[facility] NAPLESNCLIA [id number] [place] [address] [place] WBC (Bld) [#/Vol] 4.70 10*3/uL Normal 3.70-11.00 [facility] Comment on above: Order Comment: Speci men Type: BLOOD SPECIMENOrdering Facility: [facility] Address: [address] [place] [address] Performed By: #### 5 7021-8 ####[facility] NAPLESNCLIA [id number] [place] [address] [place] Comprehensive metabolic 2000 panelon 05-23-2024 Albumin [Mass/Vol] 4.5 g/dL Normal 3.9-4.9 [facility] Comment on above: Order Comment: Speci men Type: BLOOD SPECIMENOrdering Facility: [facility] Address: [address] [place] [address] Performed By: #### 2 4323-8 ####[facility]ITALWNCL[facility] [id number] [place] [address] [place] ALP [Catalytic activity/Vol] 68 U/L Normal 38-113 [facility] Comment on above: Order Comment: Speci men Type: BLOOD SPECIMENOrdering Facility: [facility] Address: [address] [place] [address] Performed By: #### 2 4323-8 ####[facility] NAPLESNCL[facility] [id number] [place] [address] [place] ALT [Catalytic activity/Vol] 35 U/L Normal 10-54 [facility] Comment on above: Order Comment: Speci men Type: BLOOD SPECIMENOrdering Facility: [facility] Address: [address] [place] [address] Performed By: #### 2 4323-8 ####[facility] MARY JANE MILLTOWNCLIA [id number] [place] [address] [place] Anion gap [Moles/Vol] 8 mmol/L Normal 8-15 [facility] Comment on above: Order Comment: Speci men Type: BLOOD SPECIMENOrdering Facility: [facility] Address: [address] [place] [address] Performed By: #### 2 4323-8 ####[facility]ITALWNCL[facility] [id number] [place] [address] [place] AST [Catalytic activity/Vol] 30 U/L Normal 14-40 [facility] Comment on above: Order Comment: Speci men Type: BLOOD SPECIMENOrdering Facility: [facility] Address: [address] [place] [address] Performed By: #### 2 4323-8 ####[facility]ITALWNCL[facility] [id number] [place] [address] [place] Bilirubin [Mass/Vol] 0.3 mg/dL Normal 0.2-1.3 [facility] Comment on above: Order Comment: Speci men Type: BLOOD SPECIMENOrdering Facility: [facility] Address: [address] [place] [address] Performed By: #### 2 4323-8 ####[facility] MARY JANE MILLTOWNCLIA [id number] [place] [address] [place] Calcium [Mass/Vol] 9.8 mg/dL Normal 8.5-10.2 [facility] Comment on above: Order Comment: Speci men Type: BLOOD SPECIMENOrdering Facility: [facility] Address: [address] [place] [address] Performed By: #### 2 4323-8 ####[facility] YOGIGarettNCLIA [id number] [place] [address] [place] Chloride [Moles/Vol] 101 mmol/L Normal 98-107 [facility] Comment on above: Order Comment: Speci men Type: BLOOD SPECIMENOrdering Facility: [facility] Address: [address] [place] [address] Performed By: #### 2 4323-8 ####[facility] NAPLESNCLIA [id number] [place] [address] [place] CO2 [Moles/Vol] 28 mmol/L Normal 22-30 [facility] Comment on above: Order Comment: Speci men Type: BLOOD SPECIMENOrdering Facility: [facility] Address: [address] [place] [address] Performed By: #### 2 4323-8 ####[facility] N[facility]LESNCL[facility] [id number] [place] [address] [place] Creatinine [Mass/Vol] 0.86 mg/dL Normal 0.73-1.22 [facility] Comment on above: Order Comment: Speci men Type: BLOOD SPECIMENOrdering Facility: [facility] Address: [address] [place] [address] Performed By: #### 2 4323-8 ####[facility] NAPLESNCLIA [id number] [place] [address] [place] Creatinine and Glomerular filtration rate.predicted panel (S/P/Bld) 94 mL/min/1.73m??? Normal >=60 [facility] Comment on above: Order Comment: Speci men Type: BLOOD SPECIMENOrdering Facility: [facility] Address: [address] [place] [address] Result Comment: Shea mated Glomerular Filtration Rate [...] actual GFR. Performed By: #### 2 4323-8 ####[facility] [id number] [place] [address] [place] Glucose [Mass/Vol] 113 mg/dL High 74-99 [facility] Comment on above: Order Comment: Geo fernandez Type: BLOOD SPECIMENOrdering Facility: [facility] Address: [address] [place] [address] Result Comment: The [place] Diabetes Association (ADA) provides guidance for cutoff [...] Standards of Medical Care in Diabetes 2016, [place] Diabetes Association. Diabetes Care. 2016.39(Suppl 1). Performed By: #### 2 4323-8 ####[facility] [id number] [place] [address] [place] Potassium [Moles/Vol] 4.2 mmol/L Normal 3.7-5.1 [facility] Comment on above: Order Comment: Geo fernandez Type: BLOOD SPECIMENOrdering Facility: [facility] Address: [address] [place] [address] Performed By: #### 2 4323-8 ####[facility] [id number] [place] [address] [place] Protein [Mass/Vol] 6.5 g/dL Normal 6.3-8.0 [facility] Comment on above: Order Comment: Speci men Type: BLOOD SPECIMENOrdering Facility: [facility] Address: [address] [place] [address] Performed By: #### 2 4323-8 ####[facility] [id number] [place] [address] [place] Sodium [Moles/Vol] 137 mmol/L Normal 136-144 [facility] Comment on above: Order Comment: Speci men Type: BLOOD SPECIMENOrdering Facility: [facility] Address: [address] [place] [address] Performed By: #### 2 4323-8 ####[facility] [id number] [place] [address] [place] Urea nitrogen [Mass/Vol] 14 mg/dL Normal 9-24 [facility] Comment on above: Order Comment: Speci men Type: BLOOD SPECIMENOrdering Facility: [facility] Address: [address] [place] [address] Performed By: #### 2 4323-8 ####[facility] [id number] [place] [address] [place] Ferritin SerPl-mCncon 2024 Ferritin [Mass/Vol] 187.0 ng/mL Normal 30.3-565.7 [facility] Comment on above: Order Comment: Speci men Type: BLOOD SPECIMENOrdering Facility: [facility] Address: [address] [place] [address] Performed By: #### 2 276-4, 78270-6, LIPNF ####[facility] [id number] [facility] [id number] [place] [address] [place] Folate SerPl-mCncon 05-23-19 25 Folate [Mass/Vol] 15.5 ng/mL Normal >4.7 [facility] Comment on above: Order Comment: Geo fernandez Type: BLOOD SPECIMENOrdering Facility: [facility] Address: [address] [place] [address] Performed By: #### 2 132-9, 2284-8 ####[facility] [id number] [place] [address] [place] HbA1c (Bld)on 05-23-2024 Average glucose Estimated from glycated hemoglobin (Bld) [Mass/Vol] 97 mg/dL Normal [facility] Comment on above: Order Comment: Geo fernandez Type: BLOOD SPECIMENOrdering Facility: [facility] Address: [address] [place] [address] Result Comment: eAG: (Estimated average glucose) is a calculated value from HgbA1c and is utility sales representative of the average blood glucose level in the last 2-3 month period. Performed By: #### 5 5454-3 ####[facility] [id number] [place] [address] [place] HbA1c (Bld) [Mass fraction] 5.0 % Normal 4.3-5.6 [facility] Comment on above: Order Comment: Geo fernandez Type: BLOOD SPECIMENOrdering Facility: [facility] Address: [address] [place] [address] Result Comment: Amer ican Diabetes Association guidelines indicate that patients with HgbA1c in the range 5.7-6.4% are at increased risk for development of diabetes, and intervention by lifestyle modification may be beneficial. HgbA1c greater or equal to 6.5% is considered diagnostic of diabetes. Performed By: #### 5 5454-3 ####[facility] [id number] [place] [id number] [place] Iron and Iron binding capaci ty panelon 05-23-2024 Iron [Mass/Vol] 78 ug/dL Normal 41-186 [facility] Comment on above: Order Comment: Speci men Type: BLOOD SPECIMENOrdering Facility: [facility] Address: [address] [place], [place] [address] Performed By: #### 2 276-4, 19328-7, LIPNF ####[facility] [id number] [place] [id number] [place] Iron binding capacity [Mass/Vol] 360 ug/dL Normal 232-386 [facility] Comment on above: Order Comment: Speci men Type: BLOOD SPECIMENOrdering Facility: [facility] Address: [address] [place] [address] Performed By: #### 2 276-4, 79070-8, LIPNF ####[facility] [id number] [place] [address] [place] Iron/TIBC [Molar ratio] 21.7 % Normal 15.0-57.0 [facility] Comment on above: Order Comment: Speci men Type: BLOOD SPECIMENOrdering Facility: [facility] Address: [address] [place] [address] Performed By: #### 2 276-4, 14055-9, LIPNF ####[facility] [id number] [place] [address] [place] LIPID PANEL, NONFASTINGon Cholesterol [Mass/Vol] 165 mg/dL Normal <200 [facility] Comment on above: Order Comment: Speci men Type: BLOOD SPECIMENOrdering Facility: [facility] Address: [address] [place], [place] [address] Result Comment: <200 mg/dL, Desirable 200-239 mg/dL, Borderline high >239 mg/dL, High Performed By: #### 2 276-4, 00476-2, LIPNF ####[facility] [id number] [place] [address] [place] HDL CHOLESTEROL, NF 36 mg/dL Low >39 [facility] Comment on above: Order Comment: Speci men Type: BLOOD SPECIMENOrdering Facility: [facility] Address: [address] [place] [address] Result Comment: 40-5 9 mg/dL, Acceptable >59 mg/dL, High: Negative risk factor for coronary heart disease <40 mg/dL, Low: Positive risk factor for coronary heart disease Performed By: #### 2 276-4, 90589-9, LIPNF ####[facility] [id number] [place] [address] [place] LDL CHOLESTEROL, NF 71 mg/dL Normal <100 [facility] Comment on above: Order Comment: Speci men Type: BLOOD SPECIMENOrdering Facility: [facility] Address: [address] [place] [address] Result Comment: <100 mg/dL, Optimal 100-129 mg/dL, Near optimal/above optimal 130-159 mg/dL, Borderline high 160-189 mg/dL, High >189 mg/dL, Very high Secondary prevention optimal LDL Cholesterol levels are recommended to be < 70 mg/dL Performed By: #### 2 276-4, 55713-7, LIPNF ####[facility] [id number] [address] [place] LDL/HDL RATIO, NF 1.97 mg/dL Normal <2.54 [facility] Comment on above: Order Comment: Martelli men Type: BLOOD SPECIMENOrdering Facility: [facility] Address: [address] [place] [address] Result Comment: Refe rence: 1. National Cholesterol Education Program ATP III Guideline At-A-Glance Quick Desk Reference: National Heart, Lung, and Blood [place]. National Institutes of Health. 2001: NIH Publication No. 01-3305. 2. An International Atherosclerosis Society position paper: global recommendations for the management of dyslipidemia: executive summary, Atherosclerosis. 2014: 232(2):410-413. Performed By: #### 2 276-4, 63857-8, LIPNF ####[facility] [id number] [place] [address] [place] NON HDL CHOL, NF 129 mg/dL Normal <130 [facility] Comment on above: Order Comment: Speci men Type: BLOOD SPECIMENOrdering Facility: [facility] Address: [address] [place] [address] Result Comment: <130 mg/dL, Optimal 130-159 mg/dL, Near optimal/above optimal 160-189 mg/dL, Borderline high 190-219 mg/dL, High >219 mg/dL, Very high Secondary prevention optimal non HDL Cholesterol levels are recommended to be <100 mg/dL Performed By: #### 2 276-4, 98344-0, LIPNF ####[facility] [id number] [place] [address] [place] T CHOL/HDL RATIO NF 4.58 mg/dL Normal <5.10 [facility] Comment on above: Order Comment: Speci men Type: BLOOD SPECIMENOrdering Facility: [facility] Address: [address] [place] [address] Performed By: #### 2 276-4, 43930-0, LIPNF ####[facility] [id number] [place] [address] [place] TRIGLYCERIDES, NF 289 mg/dL High <150 [facility] Comment on above: Order Comment: Speci men Type: BLOOD SPECIMENOrdering Facility: [facility] Address: [address] [place] [address] Result Comment: <150 mg/dL, Normal 150-199 mg/dL, Borderline high 200-499 mg/dL, High >499 mg/dL, Very high Performed By: #### 2 276-4, 36063-5, LIPNF ####[facility] [id number] [place] [address] [place] VLDL CHOLESTEROL, NF 58 mg/dL High <30 [facility] Comment on above: Order Comment: Speci men Type: BLOOD SPECIMENOrdering Facility: [facility] Address: [address] [place] [address] Performed By: #### 2 276-4, 46863-3, LIPNF ####[facility] [id number] [place] [address] [place] PSA SerPl-mCncon 05-23-2024 Prostate specific Ag [Mass/Vol] 0.29 ng/mL Normal <2.60 [facility] Comment on above: Order Comment: Speci men Type: BLOOD SPECIMENOrdering Facility: [facility] Address: [address] [place] [address] Result Comment: Tota l PSA test methodology used is the Electrochemiluminescence Immunoassay by [employer]. Total PSA values by differing methodologies cannot be interchanged. Performed By: #### 2 857-1 ####[facility] [id number] [place] [address] [place] Urinalysis complete panel (U )on 05-23-2024 Bacteria LM.HPF (Urine sed) [#/Area] Negative Normal Negative [facility] Comment on above: Order Comment: Speci men Type: URINE SPECIMENOrdering Facility: [facility] Address: [address] [place] [address] Performed By: #### 2 4356-8 ####[facility] [id number] [place] [address] [place] Bilirubin Ql (U) Negative Normal Negative [facility] Comment on above: Order Comment: Speci men Type: URINE SPECIMENOrdering Facility: [facility] Address: [address] [place] [address] Performed By: #### 2 4356-8 ####[facility] [id number] [place] [address] [place] Clarity (Unsp spec) Clear Normal Clear [facility] Comment on above: Order Comment: Speci men Type: URINE SPECIMENOrdering Facility: [facility] Address: [address] [place] [address] Performed By: #### 2 4356-8 ####[facility] [id number] [place] [address] [place] Color (U) Yellow Normal Yellow [facility] Comment on above: Order Comment: Speci men Type: URINE SPECIMENOrdering Facility: [facility] Address: [address] [place] [address] Performed By: #### 2 4356-8 ####[facility] [id number] [place] [address] [place] Epithelial cells LM.HPF (Urine sed) [#/Area] None Seen Normal [facility] Comment on above: Order Comment: Speci men Type: URINE SPECIMENOrdering Facility: [facility] Address: [address] [place] [address] Performed By: #### 2 4356-8 ####[facility] [id number] [address] [place] Glucose Test strip (U) [Mass/Vol] Negative Normal Negative [facility] Comment on above: Order Comment: Speci men Type: URINE SPECIMENOrdering Facility: [facility] Address: [address] [place] [address] Performed By: #### 2 4356-8 ####[facility] [id number] [place] [address] [place] Hemoglobin Ql (U) Negative Normal Negative [facility] Comment on above: Order Comment: Speci men Type: URINE SPECIMENOrdering Facility: [facility] Address: [address] [place] [address] Performed By: #### 2 4356-8 ####[facility] [id number] [place] [address] [place] Hyaline casts (Urine sed) [#/Area] 0 /[LPF] Normal 0 /LPF [facility] Comment on above: Order Comment: Speci men Type: URINE SPECIMENOrdering Facility: [facility] Address: [address] [place] [address] Performed By: #### 2 4356-8 ####[facility] [id number] [place] [address] [place] Ketones Ql (U) Negative Normal Negative [facility] Comment on above: Order Comment: Speci men Type: URINE SPECIMENOrdering Facility: [facility] Address: [address] [place] [address] Performed By: #### 2 4356-8 ####[facility] [id number] [place] [address] [place] Leukocyte esterase Test strip Ql (U) Negative Normal Negative [facility] Comment on above: Order Comment: Speci men Type: URINE SPECIMENOrdering Facility: [facility] Address: [address] [place] [address] Performed By: #### 2 4356-8 ####[facility] [id number] [place] [address] [place] Nitrite Ql (U) Negative Normal Negative [facility] Comment on above: Order Comment: Speci men Type: URINE SPECIMENOrdering Facility: [facility] Address: [address] [place] [address] Performed By: #### 2 4356-8 ####[facility] [id number] [place] [address] [place] pH (U) 6.5 [pH] Normal <8.5 [facility] Comment on above: Order Comment: Speci men Type: URINE SPECIMENOrdering Facility: [facility] Address: [address] [place] [address] Performed By: #### 2 4356-8 ####[facility] [id number] [place] [address] [place] Protein (U) [Mass/Vol] Negative Normal Negative [facility] Comment on above: Order Comment: Speci men Type: URINE SPECIMENOrdering Facility: [facility] Address: [address] [place] [address] Performed By: #### 2 4356-8 ####[facility] [id number] [place] [address] [place] RBC LM.HPF (Urine sed) [#/Area] 0-2 /HPF Normal 0-2 /HPF [facility] Comment on above: Order Comment: Speci men Type: URINE SPECIMENOrdering Facility: [facility] Address: [address] [place] [address] Performed By: #### 2 4356-8 ####[facility] [id number] [place] [address] [place] Specific gravity (U) [Rel density] 1.015 Normal 1.005-1.03 0 [facility] Comment on above: Order Comment: Speci men Type: URINE SPECIMENOrdering Facility: [facility] Address: [address] [place] [address] Performed By: #### 2 4356-8 ####[facility] [id number] [place] [address] [place] Urobilinogen Ql (U) 0.2 EU/dL Normal 0.2-1.0 EU/dL [facility] Comment on above: Order Comment: Speci men Type: URINE SPECIMENOrdering Facility: [facility] Address: [address] [place] [address] Performed By: #### 2 4356-8 ####[place] [facility] [id number] [place] [address] [place] WBC LM.HPF (Urine sed) [#/Area] 0-5 /HPF Normal 0-5 /HPF [facility] Comment on above: Order Comment: Speci men Type: URINE SPECIMENOrdering Facility: [facility] Address: [address] [place] [address] Performed By: #### 2 4356-8 ####[facility] [id number] [place] [id number] [place] Vit A SerPl-mCncon 5 Retinol [Mass/Vol] 0.62 mg/L Normal 0.30-1.20 [facility] Comment on above: Order Comment: Speci men Type: BLOOD SPECIMENOrdering Facility: [facility] Address: [address] [place] [address] Result Comment: Test performed at [facility] in [place], [place]. This test was developed and its performance characteristics determined by [facility]. It has not been cleared or approved by the US Food and Drug Administration. This test was performed in a CLIA certified laboratory and is intended for clinical purposes. Performed By: #### 2 923-1 ####[facility] [id number] [place] [address] [place] Vit B12 SerPl-mCncon 025 Cobalamin (Vitamin B12) [Mass/Vol] 889 pg/mL Normal 232-1245 [facility] Comment on above: Order Comment: Speci men Type: BLOOD SPECIMENOrdering Facility: [facility] Address: [address] [place] [address] Performed By: #### 2 132-9, 2284-8 ####[facility] [id number] [place] [address] [place] Zinc SerPl-mCncon 05-23-2024 Zinc [Mass/Vol] 56 ug/dL Low 60-120 [facility] Comment on above: Order Comment: Speci men Type: BLOOD SPECIMENOrdering Facility: [facility] Address: [address] [place] [address] Result Comment: This test was developed, and its performance characteristics determined by the [facility] Department of Pathology and Laboratory Medicine. It has not been cleared or approved by the FDA. The [facility] Department of Pathology and Laboratory Medicine is regulated under CLIA as qualified to perform high-complexity testing. This test is used for clinical purposes. It should not be regarded as investigational or for research. Performed By: #### 5 763-8 ####[place] [facility] [id number] [address] [place] CNOVon 05-19-2024 CNOV Office Visit (PODIWS ) TARA ARELLANO ([id number]) 1955 M Date Time Provider Department 05/19/24 10:45 AM [facility] PODIWS During your visit today, we recorded the following information about you: Rdaha Cosme MA 05/19/2024 11:14 AM Signed AMB [...] hours as needed for wheezing/shortness of breath. xvobskxjwro-fieoxruvj-zbypc ter (TRELEGY ELLIPTA) 100-62.5-25 mcg inhalation powder [...] daily. EP (more content not included)... Normal [facility] XR FOOT 3V AP/LAT/OBL LTon 0 [...] Scattered degenerative changes without acute osseous findings. Spool Sorter: PSCB Transcribe Date/Time: May 22 2024 11:34A Dictated by : TO NIEVES MD This examination was interpreted and the report reviewed and electronically signed by: TO NIEVES MD on May 22 2024 11:36AM EST [id number] Normal [facility] ([id number]) 1955 M Date Time Provider Department 05/17/24 TERI GROSS [facility] During your visit today, we recorded the [...] Visit Diagnosis:Lung nodules [R91.8] Order(s):CT CHEST WO PAULINEON [[id number]] Order #: [id number] FUTURE Prescriptions as of 05/17/2024 - omeprazole [...] as needed for wheezing/shortness of breath. - sujttkqxtvt-kqsqoiklq-scdhr ter (TRELEGY ELLIPTA) 100-62.5-25 mcg inhalation powder [...] Encounter Status:Closed by TERI GROSS on 05/17/24 [facility] CNOVon 04-06-2024 CNOV Office Visit (FAMPWS ) TARA ARELLANO ([id number]) 1955 M Date Time Provider Department 04/06/24 11:20 AM ANDRY JEAN-BAPTISTE FAMPWS During your visit today, we recorded the following information about you: Pulse Respiration Blood pressure Weight 72/minute 16/minute 122/62 81.2 kg Andry Jean-Baptiste MD 04/06/2024 12:47 PM Signed Chief Complaint Patient presents with: ER F/U HPI Tara Arellano is a 68 year old male who presents here today for [facility] ER follow up Patient was in [facility] ER on 03/29/2024 for lower extremity injury [...] to Visit (more content not included)... Normal [facility] Basic Metabolic Profile (BMP )on 03-29-2024 BUN/CRE 19.8 RATIO Normal 10-20 [facility] Comment on above: Performed By: #### L 500.2500, L100.0500, L501.3620 #### [facility] [address] [place], [address] CA,Total 8.8 mg/dL Normal 8.5-10.1 [facility] Comment on above: Performed By: #### L 500.2500, L100.0500, L501.3620 #### [facility] [address] [place], [address] Chloride [Moles/Vol] 111 mmol/L High 98-107 [facility] Comment on above: Performed By: #### L 500.2500, L100.0500, L501.3620 #### [facility] [address] [place], [address] CO2 [Moles/Vol] 25.0 mmol/L Normal 21.0-32.0 [facility] Comment on above: Performed By: #### L 500.2500, L100.0500, L501.3620 #### [facility] [address] [place], [address] Creatinine [Mass/Vol] 0.96 mg/dL Normal 0.70-1.30 [facility] Comment on above: Result Comment: The validity of the calculated GFR GFRAA in patients over 70 years has not been determined. Clinical correlation is essential. Performed By: #### L 500.2500, L100.0500, L501.3620 #### [facility] [address] [place], [address] ECRCL 74.99 ml/min Normal [facility] Comment on above: Performed By: #### L 500.2500, L100.0500, L501.3620 #### [facility] [address] [place], [address] EST GFR - AA 100 mL/min Normal >60 [facility] Comment on above: Result Comment: Afri can [place] GFR Calc Performed By: #### L 500.2500, L100.0500, L501.3620 #### [facility] [address] [place], [address] GAP 5 Normal 5-15 [facility] Comment on above: Performed By: #### L 500.2500, L100.0500, L501.3620 #### [facility] [address] [place], [address] GFR/1.73 sq M.predicted among non-blacks MDRD (S/P/Bld) [Vol rate/Area] 83 mL/min/{1.73_m2} Normal >60 [facility] Comment on above: Result Comment: Non- GFR Calc Performed By: #### L 500.2500, L100.0500, L501.3620 #### [facility] [address] [place], [address] Glucose [Mass/Vol] 102 mg/dL Normal 74-[address] [facility] Comment on above: Result Comment: Fast ing Glucose result from 100 to 125 mg/dL suggests IMPAIRED HOMEOSTASIS per A.D.A. criteria. Performed By: #### L 500.2500, L100.0500, L501.3620 #### [facility] [address] [place], [address] Potassium [Moles/Vol] 4.0 mmol/L Normal 3.5-5.1 [facility] Comment on above: Performed By: #### L 500.2500, L100.0500, L501.3620 #### [facility] [address] [place], [address] Sodium [Moles/Vol] 141 mmol/L Normal 136-[address] [facility] Comment on above: Performed By: #### L 500.2500, L100.0500, L501.3620 #### [facility] [address] [place], [address] Urea nitrogen [Mass/Vol] 19 mg/dL High 7-18 [facility] Comment on above: Performed By: #### L 500.2500, L100.0500, L501.3620 #### [facility] [address] [place], [address] CBC-Complete Blood Cnt No Di ffon 03-29-2024 Erythrocyte distribution width (RBC) [Ratio] 12.8 % Normal 11.6-14.6 [facility] Comment on above: Performed By: #### L 500.2500, L100.0500, L501.3620 #### [facility] [address] [place], [address] Hematocrit (Bld) [Volume fraction] 35.1 % Low 40-54 [facility] Comment on above: Performed By: #### L 500.2500, L100.0500, L501.3620 #### [facility] [address] [place], [address] Hemoglobin (Bld) [Mass/Vol] 12.4 g/dL Low 13.0-16.5 [facility] Comment on above: Performed By: #### L 500.2500, L100.0500, L501.3620 #### [facility] [address] [place], [address] MCH (RBC) [Entitic mass] 31.1 pg Normal 27.0-32.0 [facility] Comment on above: Performed By: #### L 500.2500, L100.0500, L501.3620 #### [facility] [address] [place], [address] MCHC (RBC) [Mass/Vol] 35.3 g/dL Normal 32-36 [facility] Comment on above: Performed By: #### L 500.2500, L100.0500, L501.3620 #### [facility] [address] [place], [address] MCV (RBC) [Entitic vol] 88.0 fL Normal 80-94 [facility] Comment on above: Performed By: #### L 500.2500, L100.0500, L501.3620 #### [facility] [address] [place], [address] Platelet mean volume (Bld) [Entitic vol] 8.5 fL Normal 6.2-12.0 [facility] Comment on above: Performed By: #### L 500.2500, L100.0500, L501.3620 #### [facility] [address] [place], [address] Platelets (Bld) [#/Vol] 226 10*3/uL Normal 150-450 [facility] Comment on above: Performed By: #### L 500.2500, L100.0500, L501.3620 #### [facility] [address] [place], [address] RBC (Bld) [#/Vol] 3.99 10*6/uL Low 4.6-6.2 [facility] Comment on above: Performed By: #### L 500.2500, L100.0500, L501.3620 #### [facility] [address] [place], [address] RDW SD 41.1 fl Normal 35.1-43.9 [facility] Comment on above: Performed By: #### L 500.2500, L100.0500, L501.3620 #### [facility] [address] [place], [address] WBC (Bld) [#/Vol] 5.1 10*3/uL Normal 4.4-11.[address] [facility] Comment on above: Performed By: #### L 500.2500, L100.0500, L501.3620 #### [facility] [address] [place], [address] CPK Total, Creatine Kinaseon 03-29-2024 CPK TOTAL 236 U/L Normal 39-308 [facility] Comment on above: Performed By: #### L 500.2500, L100.0500, L501.3620 #### [facility] [address] [place], [address] Emergency Department Summary on 03-29-2024 Emergency Department Summary [facility] Medical Records Department [address] [place] [address] Emergency Department Summary 03/29/24 MR#: [id number] Acct: [id number] Name: TARA ARELLANO Alfonzo Rep #: [id number] : 1955 68 From: Donny Duval DO PCP: Dr. Andry Jean-Baptiste MD Status:DEP ER Location: ED HPI History of Present Illness Chief Complaint: Lower Extremity Injury [facility] Medical History Respiratory failure Coronary artery disease [...] Exam Const (more content not included)... Normal [facility] XR Chest PA and Lateralon IMPRESSION: No developing abnormality or acute process Spool Sorter: THONG Transcribe Date/Time: Sep 21 2023 1:52P Dictated by : LOCO PRUITT MD This examination was interpreted and the report reviewed and electronically signed by: LOCO PRUITT MD on Sep 21 2023 1:54PM [facility] DIVISION OF RADIOLOGY * * [...] soft tissues: Unremarkable. DIVISION OF RADIOLOGY Provider, [facility] - 09/21/2023 * * *Final [...] IMPRESSION: No developing abnormality or acute process Spool Sorter: THONG Transcribe Date/Time: Sep 21 2023 1:52P Dictated by : LOCO PRUITT MD This examination was interpreted and the report reviewed and electronically signed by: LOCO PRUITT MD on Sep 21 2023 1:54PM EST [facility] XR Chest PA and LateralOrder ed By: Ccf Provider on 09-21-2023 [facility] Absolute lymphocyte countOrd ered By: Saray Hutchinson on 09-20-2023 Lymphocytes Auto (Unsp spec) [#/Vol] 0.59 10*3/uL 0.83-4.51 [facility] Automated lymphocyte count a s percentage of total leukocytesOrdered By: Saray Hutchinson on 09-20-2023 Lymphocytes/100 WBC Auto (Unsp spec) 10.1 % 19-41 [facility] Basophil percentageOrdered B y: Saray Hutchinson on 09-20-2023 Basophils/100 WBC (Bld) 0.3 % 0-1 [facility] Chloride [Moles/Vol] 96 mmol/L 98-107 [facility] Eosinophils/100 WBC (Bld) 0.0 % 0-5 [facility] Glucose [Mass/Vol] 125 mg/dL 74-[address] [facility] Comment on above: Fasting Glucose resu lt from 100 to 125 mg/dL suggests IMPAIRED HOMEOSTASIS per A.D.A. criteria. Hemoglobin (Bld) [Mass/Vol] 12.9 g/dL 13.0-16.5 [facility] Monocytes/100 WBC (Bld) 12.3 % 0-10 [facility] Neutrophils (Bld) [#/Vol] 4.5 10*3/uL 2.0-7.7 [facility] Neutrophils/100 WBC (Bld) 77.0 % 47-70 [facility] Potassium [Moles/Vol] 3.5 mmol/L 3.5-5.1 [facility] Sodium [Moles/Vol] 134 mmol/L 136-[address] [facility] WBC (Bld) [#/Vol] 5.9 10*3/uL 4.4-11.[address] [facility] Determination of erythrocyte mean corpuscular volume (MCV)Ordered By: Saray Hutchinson on 09-20-2023 MCV (RBC) [Entitic vol] 89.5 fL 80-94 [facility] Erythrocyte distribution wid th ratioOrdered By: Saray Hutchinson on 09-20-2023 Erythrocyte distribution width (RBC) [Ratio] 12.7 % 11.6-14.6 [facility] Erythrocyte distribution wid th standard deviationOrdered By: Saray Hutchinson on 09-20-2023 Erythrocyte distribution width (RBC) [Entitic vol] 41.8 fL 35.1-43.9 [facility] Hematocrit Auto (Bld) [Volum e fraction]Or[facility] By: [facility] on 09-20-2023 Hematocrit (Bld) [Volume fraction] 38.4 % 40-54 [facility] Immature granulocytes/100 WB C Auto (Bld)Ordered By: [facility] on 09-20-2023 Immature granulocytes/100 WBC (Bld) 0.300 % 0.0-0.9 [facility] Comment on above: IG% - Immature Granu locytes (promyelocytes, myelocytes and metamyelocytes) > 1% indicates that a LEFT SHIFT is Present. Laboratory - Chemistry and C hemistry - challengeOrdered By: Saray Hutchinson on 09-20-2023 CO2 [Moles/Vol] 28.0 mmol/L 21.0-32.0 [facility] Urea nitrogen/Creatinine [Mass ratio] 13.0 mg/mg 10-20 [facility] - Hematology and Cell countsOrdered By: Saray Hutchinson on 09-20-2023 MCH (RBC) [Entitic mass] 30.1 pg 27.0-32.0 [facility] MCHC (RBC) [Mass/Vol] 33.6 g/dL 32-36 [facility] Nucleated RBC/100 WBC (Bld) [Ratio] 0 % 0-5 [facility] Platelet mean volume (Bld) [Entitic vol] 9.2 fL 6.2-12.0 [facility] Platelets (Bld) [#/Vol] 246 10*3/uL 150-450 [facility] No Panel InformationOrdered By: Saray Hutchinson on 09-20-2023 Estimated Creatinine Clearance Calc 69.72 ml/min [facility] Estimated GFR (MDRD) Amer 87 mL/min >60 [facility] Comment on above: GFR Calc Estimated GFR (MDRD) Non-Af Amer 72 mL/min >60 [facility] Comment on above: Non- GFR Calc Troponin I High Sensitivity 5 pg/mL 3.0-78.0 [facility] Comment on above: Please Note: New Jessica t Units and Gender Specific Reference Ranges. For more information see Policy Stat Procedure [place] High Sensitivity Troponin (TNIH) and attachments. RBC Auto (Bld) [#/Vol]Ordere d By: Saray Hutchinson on 09-20-2023 RBC (Bld) [#/Vol] 4.29 10*6/uL 4.6-6.2 [facility] Serum or plasma calcium adair urement (mass/volume)Ordered By: Saray Hutchinson on 09-20-2023 Calcium [Mass/Vol] 9.0 mg/dL 8.5-10.[address] [facility] Serum or plasma creatinine m easurement (mass/volume)Ordered By: Saray Hutchinson on 09-20-2023 Creatinine [Mass/Vol] 1.08 mg/dL 0.70-1.30 [facility] Comment on above: The validity of the calculated GFR & GFRAA in patients over 70 years has not been determined. Clinical correlation is essential. Serum or plasma urea nitroge n measurement (mass/volume)Ordered By: Saray Hutchinson on 09-20-2023 Urea nitrogen [Mass/Vol] 14 mg/dL 7-18 [facility] Thin prep Papanicolaou smear with manual screeningOrdered By: Saray Hutchinson on 09-20-2023 Thin prep Papanicolaou smear with manual screening 10 5-15 [facility] XR Chest PA and Lateralon Radiology Study observation (narrative) [facility] CT CHEST IVCONon 06-16-19 Radiology Result ACTIONABLE Abnormal [facility] Serum or plasma uric acid me asurement (mass/volume)Ordered By: Dany Tovar on 06-10-2023 Urate [Mass/Vol] 6.4 mg/dL 3.5-7.2 [facility] Comment on above: The drugs N-Acetylcy steine and Metamizole may falsely depress this assay. Absolute lymphocyte countOrd ered By: Lionel Neville on 05-18-2023 Lymphocytes Auto (Unsp spec) [#/Vol] 0.87 10*3/uL 0.83-4.51 [facility] Basophil percentageOrdered B y: Lionel Neville on 05-18-2023 Basophil percentage 0 SEEN /hpf 0-5 [facility] Basophils/100 WBC (Bld) 0.5 % 0-1 [facility] Bilirubin [Mass/Vol] 0.30 mg/dL 0.20-1.00 [facility] Comment on above: For patients on eltr ombopag therapy, use of Dimension [place] TBIL is not recommended. Chloride [Moles/Vol] 108 mmol/L 98-107 [facility] Eosinophils/100 WBC (Bld) 0.0 % 0-5 [facility] Glucose [Mass/Vol] 136 mg/dL 74-[address] [facility] Comment on above: Fasting Glucose resu lt greater than or equal to 126 mg/dL suggests DIABETES MELLITUS per A.D.A. criteria. Neutrophils (Bld) [#/Vol] 5.1 10*3/uL 2.0-7.7 [facility] Neutrophils/100 WBC (Bld) 81.8 % 47-70 [facility] Potassium [Moles/Vol] 4.1 mmol/L 3.5-5.1 [facility] Comment on above: Slight Hemolysis, Re sult may be falsely increased. Protein [Mass/Vol] 7.1 g/dL 6.4-8.[address] [facility] Sodium [Moles/Vol] 140 mmol/L 136-[address] [facility] WBC (Bld) [#/Vol] 6.2 10*3/uL 4.4-11.[address] [facility] Bilirubin Test strip Ql (U)O rdered By: Lionel Neville on 05-18-2023 Bilirubin Ql (U) Negative Negative [facility] Blood erythrocytes count (nu mber/volume)Ordered By: Lionel Neville on 05-18-2023 RBC (Bld) [#/Vol] 4.28 10*6/uL 4.6-6.2 [facility] Blood hemoglobin measurement (mass/volume)Ordered By: Lionel Neville on 05-18-2023 Hemoglobin (Bld) [Mass/Vol] 13.1 g/dL 13.0-16.5 [facility] Blood lymphocytes/100 leukoc ytesOrdered By: Lionel Neville on 05-18-2023 Lymphocytes/100 WBC (Bld) 14.0 % 19-41 [facility] Blood monocytes/100 leukocyt esOrdered By: Lionel Neville on 05-18-2023 Monocytes/100 WBC (Bld) 3.2 % 0-10 [facility] Blood platelet mean volumeOr dered By: Lionel Neville on 05-18-2023 Platelet mean volume (Bld) [Entitic vol] 8.3 fL 6.2-12.0 [facility] Determination of erythrocyte mean corpuscular volume (MCV)Ordered By: Lionel Neville on 05-18-2023 MCV (RBC) [Entitic vol] 88.3 fL 80-94 [facility] Hematocrit Auto (Bld) [Volum e fraction]Ordered By: Lionel Neville on 05-18-2023 Hematocrit (Bld) [Volume fraction] 37.8 % 40-54 [facility] Ketones Test strip Ql (U)Ord ered By: Lionel Neville on 05-18-2023 Ketones Ql (U) Negative Negative [facility] - Chemistry and C hemistry - challengeOrdered By: Lionel Neville on 05-18-2023 ALP [Catalytic activity/Vol] 68 U/L 45-117 [facility] ALT [Catalytic activity/Vol] 55 U/L 16-61 [facility] CO2 [Moles/Vol] 27.0 mmol/L 21.0-32.0 [facility] Globulin (S) [Mass/Vol] 3.5 g/dL 2.2-4.2 [facility] Urea nitrogen/Creatinine [Mass ratio] 10.5 mg/mg 10-20 [facility] - Hematology and Cell countsOrdered By: Lionel Neville on 05-18-2023 Erythrocyte distribution width (RBC) [Entitic vol] 41.6 fL 35.1-43.9 [facility] Erythrocyte distribution width (RBC) [Ratio] 12.9 % 11.6-14.6 [facility] Immature granulocytes/100 WBC (Bld) 0.500 % 0.0-0.9 [facility] Comment on above: IG% - Immature Granu locytes (promyelocytes, myelocytes and metamyelocytes) > 1% indicates that a LEFT SHIFT is Present. MCH (RBC) [Entitic mass] 30.6 pg 27.0-32.0 [facility] Nucleated RBC/100 WBC (Bld) [Ratio] 0 % 0-5 [facility] - Microbiology an d Antimicrobial susceptibilityOrdered By: Lionel Neville on 05-18-2023 SARS-CoV-2 (COVID-19) RNA VALARIE+probe Ql (Unsp spec) RSV [facility] MCHC Auto (RBC) [Mass/Vol]Or dered By: Lionel Neville on 05-18-2023 MCHC (RBC) [Mass/Vol] 34.7 g/dL 32-36 [facility] Mucus LM Ql (Urine sed)Order ed By: Lionel Neville on 05-18-2023 Mucus Ql (Urine sed) 0 SEEN /hpf [facility] Nitrite Test strip Ql (U)Ord ered By: Lionel Neville on 05-18-2023 Nitrite Ql (U) Negative Negative [facility] No Panel InformationOrdered By: Lionel Neville on 05-18-2023 D-Dimer Quantitative (PE/DVT) 0.33 FEU/ug/m 0.27-0.49 [facility] Comment on above: NORMAL D-Dimer level (<0.50) indicates no DVT or PE. Estimated Creatinine Clearance Calc 76.84 ml/min [facility] Estimated GFR (MDRD) Amer 102 mL/min >60 [facility] Comment on above: GFR Calc Estimated GFR (MDRD) Non-Af Amer 84 mL/min >60 [facility] Comment on above: Non- GFR Calc Troponin I High Sensitivity 4 pg/mL 3.0-78.0 [facility] Comment on above: Please Note: New Jessica t Units and Gender Specific Reference Ranges. For more information see Policy Stat Procedure [place] High Sensitivity Troponin (TNIH) and attachments. Platelets bldOrdered By: Daniella Neville on 05-18-2023 Platelets (Bld) [#/Vol] 259 10*3/uL 150-450 [facility] Protein Test strip Ql (U)Ord ered By: Lionel Neville on 05-18-2023 Protein Ql (U) Negative Negative [facility] Serum or plasma albumin adair urement (mass/volume)Ordered By: Lionel Neville on 05-18-2023 Albumin [Mass/Vol] 3.6 g/dL 3.2-5.[address] [facility] Serum or plasma albumin/glob ulin mass ratioOrdered By: Lionel Neville on 05-18-2023 Albumin/Globulin [Mass ratio] 1.0 {ratio} 0.9-2.4 [facility] Serum or plasma calcium adair urement (mass/volume)Ordered By: Lionel Neville on 05-18-2023 Calcium [Mass/Vol] 9.1 mg/dL 8.5-10.[address] [facility] Serum or plasma creatinine m easurement (mass/volume)Ordered By: Lionel Neville on 05-18-2023 Creatinine [Mass/Vol] 0.95 mg/dL 0.70-1.30 [facility] Comment on above: The validity of the calculated GFR & GFRAA in patients over 70 years has not been determined. Clinical correlation is essential. Serum or plasma urea nitroge n measurement (mass/volume)Ordered By: Lionel Neville on 05-18-2023 Urea nitrogen [Mass/Vol] 10 mg/dL 7-18 [facility] Squamous epithelial cells de tection in urine sediment by light microscopyOrdered By: Lionel Neville on 05-18-2023 Epithelial cells.squamous LM Ql (Urine sed) 0-5 SEEN /hpf 0-5 [facility] Thin prep Papanicolaou smear with manual screeningOrdered By: Lionel Neville on 05-18-2023 Thin prep Papanicolaou smear with manual screening 47 U/L 15-37 [facility] Comment on above: Slight Hemolysis, Re sult may be falsely increased. Thin prep Papanicolaou smear with manual screening 5 5-15 [facility] Urine blood detectionOrdered By: Lionel Neville on 05-18-2023 RBC Ql (U) Negative Negative [facility] RBC Ql (U) 0 SEEN /hpf 0-5 [facility] Urine clarityOrdered By: Daniella Neville on 05-18-2023 Clarity (U) Clear Clear [facility] Urine color determinationOrd ered By: Lionel Neville on 05-18-2023 Color (U) Yellow Yellow [facility] Urine glucose detectionOrder ed By: Lionel Neville on 05-18-2023 Glucose Ql (U) Normal mg/dl Normal [facility] Urine leukocyte esterase det ection by dipstickOrdered By: Lionel Neville on 05-18-2023 Leukocyte esterase Test strip Ql (U) Negative Negative [facility] Urine pHOrdered By: Lionel cadet on 05-18-2023 pH (U) 6.5 [pH] 5.0 - 8.0 [facility] Urine sediment bacteria coun t by microscopy (number/high power field)Ordered By: Lionel Neville on 05-18-2023 Bacteria LM.HPF (Urine sed) [#/Area] 0 /[HPF] None Seen [facility] Urine specific gravity measu rementOrdered By: Lionel Neville on 05-18-2023 Specific gravity (U) [Rel density] 1.005 1.002-1.03 0 [facility] Urobilinogen Auto test strip Ql (U)Ordered By: Lionel Neville on 05-18-2023 Urobilinogen Ql (U) Normal mg/dl Normal [facility] 04-30-2023 [facility] Telephone ([facility]) TARA ARELLANO ([id number]) 1955 M Date Time Provider Department 04/30/23 [facility] During your visit today, we recorded [...] mouth once daily for 10 days. - rmpycamkwu-ldzoztcc-hwvsvfs rol (BREZTRI AEROSPHERE) 160-9-4.8 mcg/actuation HFA aerosol [...] Status:Closed by ZOHAIB JALLOH on 04/30/23 Normal [facility] AMYLASE BLDon 04-28-2023 Amylase [Catalytic activity/Vol] 37 U/L 30 - 104 U/L [facility] CBC W Auto Differential pane l (Bld)on 04-28-2023 Basophils (Bld) [#/Vol] 0.09 10*3/uL <0.11 k/uL [facility] Basophils/100 WBC (Bld) 1.4 % [facility] Differential cell count method Nom (Bld) Auto [facility] Eosinophils (Bld) [#/Vol] 0.20 10*3/uL <0.46 k/uL [facility] Eosinophils/100 WBC (Bld) 3.2 % [facility] Erythrocyte distribution width (RBC) [Ratio] 13.2 % 11.5 - 15.0 % [facility] Hematocrit (Bld) [Volume fraction] 40.1 % 39.0 - 51.0 % [facility] Hemoglobin (Bld) [Mass/Vol] 13.4 g/dL 13.0 - 17.0 g/dL [facility] Immature granulocytes (Bld) [#/Vol] <0.10 k/uL [facility] Immature granulocytes/100 WBC (Bld) 0.3 % [facility] Lymphocytes (Bld) [#/Vol] 1.49 10*3/uL 1.00 - 4.00 k/uL [facility] Lymphocytes/100 WBC (Bld) 24.0 % [facility] MCH (RBC) [Entitic mass] 30.8 pg 26.0 - 34.0 pg [facility] MCHC (RBC) [Mass/Vol] 33.4 g/dL 30.5 - 36.0 g/dL [facility] MCV (RBC) [Entitic vol] 92.2 fL 80.0 - 100.0 fL [facility] Monocytes (Bld) [#/Vol] 0.54 10*3/uL <0.87 k/uL [facility] Monocytes/100 WBC (Bld) 8.7 % [facility] Neutrophils (Bld) [#/Vol] 3.87 10*3/uL 1.45 - 7.50 k/uL [facility] Neutrophils/100 WBC (Bld) 62.4 % [facility] Nucleated RBC (Bld) [#/Vol] <0.01 k/uL [facility] Nucleated RBC/100 WBC (Bld) [Ratio] 0.0 /100 WBC [facility] Platelet mean volume (Bld) [Entitic vol] 8.9 fL Low 9.0 - 12.7 fL [facility] Platelets (Bld) [#/Vol] 309 10*3/uL 150 - 400 k/uL [facility] RBC (Bld) [#/Vol] 4.35 10*6/uL 4.20 - 6.00 m/uL [facility] WBC (Bld) [#/Vol] 6.21 10*3/uL 3.70 - 11.00 k/uL [facility] Hepatic function 2000 panelo n 04-28-2023 Albumin [Mass/Vol] 4.5 g/dL 3.9 - 4.9 g/dL [facility] ALP [Catalytic activity/Vol] 63 U/L 38 - 113 U/L [facility] ALT [Catalytic activity/Vol] 29 U/L 10 - 54 U/L [facility] AST [Catalytic activity/Vol] 29 U/L 14 - 40 U/L [facility] Bilirubin [Mass/Vol] 0.3 mg/dL 0.2 - 1 .3 mg/dL [facility] Bilirubin.conjugated [Mass/Vol] <0.2 mg/dL [facility] Protein [Mass/Vol] 6.7 g/dL 6.3 - 8.0 g/dL [facility] LIPASE BLDon 04-28-2023 Lipase [Catalytic activity/Vol] 34 U/L 16 - 61 U/L [facility] XR CHEST 2V FRONTAL/LATon [facility] XR Chest PA and Lateralon IMPRESSION: Stable exam with no acute radiographic abnormality. Spool Sorter: THONG Transcribe Date/Time: Apr 28 2023 12:44P Dictated by : VERA ALFARO MD This examination was interpreted and the report reviewed and electronically signed by: VERA ALFARO MD on Apr 28 2023 12:45PM [facility] DIVISION OF RADIOLOGY * * [...] soft tissues: Unremarkable. DIVISION OF RADIOLOGY Provider, [facility] - 04/28/2023 * * *Final [...] Stable exam with no acute radiographic abnormality. Spool Sorter: THONG Transcribe Date/Time: Apr 28 2023 12:44P Dictated by : VERA ALFARO MD This examination was interpreted and the report reviewed and electronically signed by: VERA ALFARO MD on Apr 28 2023 12:45PM EST [facility] Radiology Study observation (narrative) [facility] XR Chest PA and LateralOrder ed By: Ccf Provider on 04-28-2023 [facility] No Panel Informationon 04-16 [facility] SPIROMETRY WITH DILATOR IF O BSTRUCTEDon 04-16-2023 DLCO (ml/min/mmHg) 23.19 ml/min/mmHg [facility] DLCO/VA (ml/min/mmHg/L) 4.56 ml/min/mmHg/L [facility] EAB41-26% POST (L/S) 2.21 L/S [facility] ZET17-55% PRE (L/S) 0.93 L/S [facility] FEV1 PRE (L) 2.24 L [facility] FEV1/FVC POST (%) 66 % [facility] FEV1/FVC PRE (%) 64 % [facility] FEV1_POST (L) 2.65 L [facility] FVC POST (L) 3.99 L [facility] FVC PRE (L) 3.51 L [facility] PEF POST (L/S) 5.40 L/S [facility] PEF PRE (L/S) 4.10 L/S [facility] VA (L) 5.09 L [facility] Absolute lymphocyte countOrd ered By: Thor Oswald on 03-20-2023 Lymphocytes Auto (Unsp spec) [#/Vol] 1.52 10*3/uL 0.83-4.51 [facility] Basophil percentageOrdered B y: Thor Oswald on 03-20-2023 Basophils/100 WBC (Bld) 1.0 % 0-1 [facility] Chloride [Moles/Vol] 103 mmol/L 98-107 [facility] Eosinophils/100 WBC (Bld) 4.5 % 0-5 [facility] Glucose [Mass/Vol] 107 mg/dL 74-[address] [facility] Comment on above: Fasting Glucose resu lt from 100 to 125 mg/dL suggests IMPAIRED HOMEOSTASIS per A.D.A. criteria. Neutrophils (Bld) [#/Vol] 4.1 10*3/uL 2.0-7.7 [facility] Neutrophils/100 WBC (Bld) 60.5 % 47-70 [facility] Potassium [Moles/Vol] 4.1 mmol/L 3.5-5.1 [facility] Sodium [Moles/Vol] 139 mmol/L 136-[address] [facility] WBC (Bld) [#/Vol] 6.7 10*3/uL 4.4-11.[address] [facility] Blood erythrocytes count (nu mber/volume)Ordered By: Thor Oswald on 03-20-2023 RBC (Bld) [#/Vol] 4.31 10*6/uL 4.6-6.2 [facility] Blood hemoglobin measurement (mass/volume)Ordered By: Thor Oswald on 03-20-2023 Hemoglobin (Bld) [Mass/Vol] 13.3 g/dL 13.0-16.5 [facility] Blood lymphocytes/100 leukoc ytesOrdered By: Thor Oswald on 03-20-2023 Lymphocytes/100 WBC (Bld) 22.7 % 19-41 [facility] Blood monocytes/100 leukocyt esOrdered By: Thor Oswald on 03-20-2023 Monocytes/100 WBC (Bld) 8.8 % 0-10 [facility] Blood platelet mean volumeOr dered By: Thor Oswald on 03-20-2023 Platelet mean volume (Bld) [Entitic vol] 8.1 fL 6.2-12.0 [facility] Determination of erythrocyte mean corpuscular volume (MCV)Ordered By: Thor Oswald on 03-20-2023 MCV (RBC) [Entitic vol] 93.0 fL 80-94 [facility] Hematocrit Auto (Bld) [Volum e fraction]Ordered By: Thor Oswald on 03-20-2023 Hematocrit (Bld) [Volume fraction] 40.1 % 40-54 [facility] - Chemistry and C hemistry - challengeOrdered By: Thor Oswald on 03-20-2023 CO2 [Moles/Vol] 30.0 mmol/L 21.0-32.0 [facility] Natriuretic peptide B (Bld) [Mass/Vol] 3.3 pg/mL 0-100 [facility] Urea nitrogen/Creatinine [Mass ratio] 20.7 mg/mg 10-20 [facility] - Hematology and Cell countsOrdered By: Thor Oswald on 03-20-2023 Erythrocyte distribution width (RBC) [Entitic vol] 43.8 fL 35.1-43.9 [facility] Erythrocyte distribution width (RBC) [Ratio] 12.8 % 11.6-14.6 [facility] Immature granulocytes/100 WBC (Bld) 2.500 % 0.0-0.9 [facility] Comment on above: IG% - Immature Granu locytes (promyelocytes, myelocytes and metamyelocytes) > 1% indicates that a LEFT SHIFT is Present. MCH (RBC) [Entitic mass] 30.9 pg 27.0-32.0 [facility] Nucleated RBC/100 WBC (Bld) [Ratio] 0 % 0-5 [facility] MCHC Auto (RBC) [Mass/Vol]Or dered By: Thor Oswald on 03-20-2023 MCHC (RBC) [Mass/Vol] 33.2 g/dL 32-36 [facility] No Panel InformationOrdered By: Thor Oswald on 03-20-2023 D-Dimer Quantitative (PE/DVT) 0.31 FEU/ug/m 0.27-0.49 [facility] Comment on above: NORMAL D-Dimer level (<0.50) indicates no DVT or PE. Estimated Creatinine Clearance Calc 89.02 ml/min [facility] Estimated GFR (MDRD) Amer 120 mL/min >60 [facility] Comment on above: GFR Calc Estimated GFR (MDRD) Non-Af Amer 99 mL/min >60 [facility] Comment on above: Non- GFR Calc Troponin I High Sensitivity 4 pg/mL 3.0-78.0 [facility] Comment on above: Please Note: New Jessica t Units and Gender Specific Reference Ranges. For more information see Policy Stat Procedure [place] High Sensitivity Troponin (TNIH) and attachments. Platelets bldOrdered By: Maribel Oswald on 03-20-2023 Platelets (Bld) [#/Vol] 294 10*3/uL 150-450 [facility] Serum or plasma calcium adair urement (mass/volume)Ordered By: Thor Oswald on 03-20-2023 Calcium [Mass/Vol] 8.9 mg/dL 8.5-10.[address] [facility] Serum or plasma creatinine m easurement (mass/volume)Ordered By: Thor Oswald on 03-20-2023 Creatinine [Mass/Vol] 0.82 mg/dL 0.70-1.30 [facility] Comment on above: The validity of the calculated GFR & GFRAA in patients over 70 years has not been determined. Clinical correlation is essential. Serum or plasma urea nitroge n measurement (mass/volume)Ordered By: Thor Oswald on 03-20-2023 Urea nitrogen [Mass/Vol] 17 mg/dL 7-18 [facility] Thin prep Papanicolaou smear with manual screeningOrdered By: Thor Oswald on 03-20-2023 Thin prep Papanicolaou smear with manual screening 6 5-15 [facility] XR Chest PA and Lateralon IMPRESSION: No acute radiographic abnormality. [facility] Transcribe Date/Time: Mar 12 2023 3:49P Dictated by : TOMI ABBOTT MD This examination was interpreted and the report reviewed and electronically signed by: TOMI ABBOTT MD on Mar 12 2023 3:53PM [facility] DIVISION OF RADIOLOGY * * [...] soft tissues: Unremarkable. DIVISION OF RADIOLOGY Provider, [facility] - 03/12/2023 * * *Final Report* * [...] Unremarkable. IMPRESSION IMPRESSION: No acute radiographic abnormality. Spool Sorter: [facility] Transcribe Date/Time: Mar 12 2023 3:49P Dictated by : TOMI BABOTT MD This examination was interpreted and the report reviewed and electronically signed by: TOMI ABBOTT MD on Mar 12 2023 3:53PM EST [facility] Radiology Study observation (narrative) [facility] XR Chest PA and LateralOrder ed By: Ccf Provider on 03-12-2023 [facility] Absolute lymphocyte countOrd ered By: Ronak Miller on 02-09-2023 Lymphocytes Auto (Unsp spec) [#/Vol] 0.68 10*3/uL 0.83-4.51 [facility] Amorphous sediment detection in urine sediment by light microscopyOrdered By: Ronak Miller on 02-09-2023 Amorphous sediment LM Ql (Urine sed) 1+ URATE [facility] Basophil percentageOrdered B y: Ronak Miller on 02-09-2023 Basophil percentage 0 SEEN /hpf 0-5 [facility] Basophils/100 WBC (Bld) 0.3 % 0-1 [facility] Bilirubin [Mass/Vol] 0.50 mg/dL 0.20-1.00 [facility] Comment on above: For patients on eltr ombopag therapy, use of Dimension [place] TBIL is not recommended. Chloride [Moles/Vol] 106 mmol/L 98-107 [facility] Eosinophils/100 WBC (Bld) 0.9 % 0-5 [facility] Glucose [Mass/Vol] 106 mg/dL 74-[address] [facility] Comment on above: Fasting Glucose resu lt from 100 to 125 mg/dL suggests IMPAIRED HOMEOSTASIS per A.D.A. criteria. Neutrophils (Bld) [#/Vol] 9.7 10*3/uL 2.0-7.7 [facility] Neutrophils/100 WBC (Bld) 84.8 % 47-70 [facility] Potassium [Moles/Vol] 4.2 mmol/L 3.5-5.1 [facility] Protein [Mass/Vol] 7.1 g/dL 6.4-8.[address] [facility] Sodium [Moles/Vol] 139 mmol/L 136-[address] [facility] WBC (Bld) [#/Vol] 11.5 10*3/uL 4.4-11.0 [facility] Bilirubin Test strip Ql (U)O rdered By: Ronak Miller on 02-09-2023 Bilirubin Ql (U) Negative Negative [facility] Blood erythrocytes count (nu mber/volume)Ordered By: Ronak Miller on 02-09-2023 RBC (Bld) [#/Vol] 4.66 10*6/uL 4.6-6.2 [facility] Blood hemoglobin measurement (mass/volume)Ordered By: Ronak Miller on 02-09-2023 Hemoglobin (Bld) [Mass/Vol] 14.0 g/dL 13.0-16.5 [facility] Blood lymphocytes/100 leukoc ytesOrdered By: Ronak Miller on 02-09-2023 Lymphocytes/100 WBC (Bld) 5.9 % 19-41 [facility] Blood monocytes/100 leukocyt esOrdered By: Ronak Miller on 02-09-2023 Monocytes/100 WBC (Bld) 7.8 % 0-10 [facility] Blood platelet mean volumeOr dered By: Ronak Miller on 02-09-2023 Platelet mean volume (Bld) [Entitic vol] 9.1 fL 6.2-12.0 [facility] Determination of erythrocyte mean corpuscular volume (MCV)Ordered By: Ronak Miller on 02-09-2023 MCV (RBC) [Entitic vol] 89.9 fL 80-94 [facility] Hematocrit Auto (Bld) [Volum e fraction]Ordered By: Ronak Miller on 02-09-2023 Hematocrit (Bld) [Volume fraction] 41.9 % 40-54 [facility] Ketones Test strip Ql (U)Ord ered By: Ronak Miller on 02-09-2023 Ketones Ql (U) Negative Negative [facility] Laboratory - Chemistry and C hemistry - challengeOrdered By: Ronak Miller on 02-09-2023 ALP [Catalytic activity/Vol] 85 U/L 45-117 [facility] ALT [Catalytic activity/Vol] 114 U/L 16-61 [facility] CO2 [Moles/Vol] 28.0 mmol/L 21.0-32.0 [facility] Globulin (S) [Mass/Vol] 3.1 g/dL 2.2-4.2 [facility] Lipase [Catalytic activity/Vol] 42 U/L 13-75 [facility] Comment on above: Please note:LIPASE r evised reference range effective 22. New Lipase methodology. Expected to produce lower values than the previous assay method. NEW Reference Range: 13 - 75 U/L Urea nitrogen/Creatinine [Mass ratio] 17.7 mg/mg 10-20 [facility] - Hematology and Cell countsOrdered By: Ronak Miller on 02-09-2023 Erythrocyte distribution width (RBC) [Entitic vol] 41.4 fL 35.1-43.9 [facility] Erythrocyte distribution width (RBC) [Ratio] 12.6 % 11.6-14.6 [facility] Immature granulocytes/100 WBC (Bld) 0.300 % 0.0-0.9 [facility] Comment on above: IG% - Immature Granu locytes (promyelocytes, myelocytes and metamyelocytes) > 1% indicates that a LEFT SHIFT is Present. MCH (RBC) [Entitic mass] 30.0 pg 27.0-32.0 [facility] Nucleated RBC/100 WBC (Bld) [Ratio] 0 % 0-5 [facility] MCHC Auto (RBC) [Mass/Vol]Or dered By: Ronak Miller on 02-09-2023 MCHC (RBC) [Mass/Vol] 33.4 g/dL 32-36 [facility] Mucus LM Ql (Urine sed)Order ed By: Ronak Miller on 02-09-2023 Mucus Ql (Urine sed) 0 SEEN /hpf [facility] Nitrite Test strip Ql (U)Ord ered By: Ronak Miller on 02-09-2023 Nitrite Ql (U) Negative Negative [facility] No Panel InformationOrdered By: Ronak Miller on 02-09-2023 Estimated GFR (MDRD) Amer 107 mL/min >60 [facility] Comment on above: GFR Calc Estimated GFR (MDRD) Non-Af Amer 89 mL/min >60 [facility] Comment on above: Non- GFR Calc Troponin I High Sensitivity 4 pg/mL 3.0-78.0 [facility] Comment on above: Please Note: New Jessica t Units and Gender Specific Reference Ranges. For more information see Policy Stat Procedure [place] High Sensitivity Troponin (TNIH) and attachments. Platelets bldOrdered By: Surekha Miller on 02-09-2023 Platelets (Bld) [#/Vol] 242 10*3/uL 150-450 [facility] Protein Test strip Ql (U)Ord ered By: Ronak Miller on 02-09-2023 Protein Ql (U) Negative Negative [facility] Serum or plasma albumin adair urement (mass/volume)Ordered By: Ronak Miller on 02-09-2023 Albumin [Mass/Vol] 4.0 g/dL 3.2-5.[address] [facility] Serum or plasma albumin/glob ulin mass ratioOrdered By: Ronak Miller on 02-09-2023 Albumin/Globulin [Mass ratio] 1.3 {ratio} 0.9-2.4 [facility] Serum or plasma calcium adair urement (mass/volume)Ordered By: Ronak Miller on 02-09-2023 Calcium [Mass/Vol] 9.1 mg/dL 8.5-10.[address] [facility] Serum or plasma creatinine m easurement (mass/volume)Ordered By: Ronak Miller on 02-09-2023 Creatinine [Mass/Vol] 0.90 mg/dL 0.70-1.30 [facility] Comment on above: The validity of the calculated GFR & GFRAA in patients over 70 years has not been determined. Clinical correlation is essential. Serum or plasma urea nitroge n measurement (mass/volume)Ordered By: Ronak Miller on 02-09-2023 Urea nitrogen [Mass/Vol] 16 mg/dL 7-18 [facility] Squamous epithelial cells de tection in urine sediment by light microscopyOrdered By: Ronak Miller on 02-09-2023 Epithelial cells.squamous LM Ql (Urine sed) 0-5 SEEN /hpf 0-5 [facility] Thin prep Papanicolaou smear with manual screeningOrdered By: Ronak Miller on 02-09-2023 Thin prep Papanicolaou smear with manual screening 144 U/L 15-37 [facility] Thin prep Papanicolaou smear with manual screening 5 5-15 [facility] Urine blood detectionOrdered By: Ronak Miller on 02-09-2023 RBC Ql (U) Negative Negative [facility] RBC Ql (U) 0 SEEN /hpf 0-5 [facility] Urine clarityOrdered By: Surekha Miller on 02-09-2023 Clarity (U) Clear Clear [facility] Urine color determinationOrd ered By: Ronak Miller on 02-09-2023 Color (U) Yellow Yellow [facility] Urine glucose detectionOrder ed By: Ronak Miller on 02-09-2023 Glucose Ql (U) Normal mg/dl Normal [facility] Urine leukocyte esterase det ection by dipstickOrdered By: Ronak Miller on 02-09-2023 Leukocyte esterase Test strip Ql (U) Negative Negative [facility] Urine pHOrdered By: Ronak sainz on 02-09-2023 pH (U) 5.0 [pH] 5.0 - 8.0 [facility] Urine sediment bacteria coun t by microscopy (number/high power field)Ordered By: Ronak Miller on 02-09-2023 Bacteria LM.HPF (Urine sed) [#/Area] 0 /[HPF] None Seen [facility] Urine specific gravity measu rementOrdered By: Ronak Miller on 02-09-2023 Specific gravity (U) [Rel density] 1.015 1.002-1.03 0 [facility] Urobilinogen Auto test strip Ql (U)Ordered By: Ronak Miller on 02-09-2023 Urobilinogen Ql (U) Normal mg/dl Normal [facility] Microbial respiratory cultur eOrdered By: Dr. Dumas on 10-06-2022 Bacteria identified Respiratory culture Nom (Unsp spec) [facility] Gram stain for investigation of transfusion reactionOrdered By: Dr. Dumas on 10-05-2022 Microscopic observation Gram stain Nom (Unsp spec) [facility] Basophil percentageOrdered B y: Jason Nelson on 09-23-2022 Creatinine [Mass/Vol] 1.0 mg/dL 0.70-1.30 [facility] No Panel InformationOrdered By: Jason Omar on 09-23-2022 Bedside Estimated GFR (eGFR) > 60.0000 mL/min >60 [facility] Influenza virus A and B RNA and SARS-CoV-2 (COVID-19) N gene panel VALARIE+probe (Resp)on 05-02-2022 FLUAV RNA VALARIE+probe Ql (Unsp spec) Negative Negative for Influenza A by RT-PCR [facility] FLUBV RNA VALARIE+probe Ql (Unsp spec) Negative Negative for Influenza B by RT-PCR [facility] SARS-CoV-2 (COVID-19) RNA VALARIE+probe Ql (Resp) SARS-CoV-2 (Agent of COVID-19) Detected by RT-PCR or equivalent method. Abnormal Not Detected [facility] XR RIBS/CHEST 3V AP RIB/OBLS /CXR LEFTon 10-24-2021 [facility] XR Ribs - left Views and [facility] st PAon 10-24-2021 IMPRESSION: Negative ribs. Spool Sorter: THONG Transcribe Date/Time: Oct 24 2021 2:17P [...] displaced or nondisplaced rib fracture. ZZZ_DO_NOT _USE_DIVIS ION OF RADIOLOGY [facility] * * *Final Report* * [...] nondisplaced rib fracture. IMPRESSION IMPRESSION: Negative ribs. Spool Sorter: [facility] Transcribe Date/Time: Oct 24 2021 2:17P Dictated by : KELLY CONRAD MD This examination was interpreted and the report reviewed and electronically signed by: KELLY CONRAD MD on Oct 24 2021 2:20PM EST [facility] Radiology Study observation (narrative) [facility] XR Ribs - left Views and [facility] st PAOrdered By: Ccf Provider on 10-24-2021 [facility] Basic Panelon 04-20-2019 Creatinine [Mass/Vol] 0.81 mg/dL Normal 0.67-1.17 [facility] Comment on above: Performed By: #### I ROJELIO #### [facility] [address] [place], [place] [address] Anion gap [Moles/Vol] 7 mmol/L Low 8-16 [facility] Comment on above: Performed By: #### Cristiano SERRATO #### [facility] [address] [place], [place] [address] CO2 [Moles/Vol] 30 mmol/L Normal 21-32 [facility] Comment on above: Performed By: #### I ROJELIO #### [facility] [address] [place], [place] [address] Urea nitrogen [Mass/Vol] 13 mg/dL Normal 7-18 [facility] Comment on above: Performed By: #### I ROJELIO #### [facility] [address] [place], [place] [address] Calcium [Mass/Vol] 8.7 mg/dL Normal 8.5-10.1 [facility] Comment on above: Performed By: #### Cristiano SERRATO #### [facility] [address] [place], [place] [address] Glucose [Mass/Vol] 97 mg/dL Normal 70-99 [facility] Comment on above: Performed By: #### Cristiano SERRATO #### [facility] [address] [place], [place] [address] Chloride [Moles/Vol] 105 mmol/L Normal 98-[address] [facility] Comment on above: Performed By: #### Cristiano SERRATO #### [address] [address] Potassium [Moles/Vol] 4.2 mmol/L Normal 3.5-5.1 [facility] Comment on above: Performed By: #### I ROJELIO #### [facility] [address] [place], [place] [address] Sodium [Moles/Vol] 138 mmol/L Normal 136-145 [facility] Comment on above: Performed By: #### Cristiano SERRATO #### [address] [address] Hemogram/Diffon 04-20-2019 Abs Immature Grans 0.02 thou/cmm Normal 0.00-0.05 [facility] Comment on above: Performed By: #### C BCD1 #### [facility] [address] [place] [address] Abs Neut (ANC) 4.42 thou/cmm Normal 1.78-5.38 [facility] Comment on above: Performed By: #### C BCD1 #### [facility] [address] [place] [address] Abs. Baso 0.03 thou/cmm Normal 0.01-0.08 [facility] Comment on above: Performed By: #### C BCD1 #### [facility] [address] [place] [address] Abs. [place] 0.59 thou/cmm Normal 0.30-0.82 [facility] Comment on above: Performed By: #### C BCD1 #### [place] [address] Basophils/100 WBC (Bld) 0.4 % Normal [facility] Comment on above: Performed By: #### C BCD1 #### [facility] [address] [place] [address] Eosinophils (Bld) [#/Vol] 0.12 thou/cmm Normal 0.04-0.54 [facility] Comment on above: Performed By: #### C BCD1 #### [place] [address] Eosinophils/100 WBC (Bld) 1.8 % Normal [facility] Comment on above: Performed By: #### C BCD1 #### [facility] [address] [place] [address] Erythrocyte distribution width (RBC) [Ratio] 14.5 % High 11.6-14.4 [facility] Comment on above: Performed By: #### C BCD1 #### [facility] [address] [place] [address] Hematocrit (Bld) [Volume fraction] 38.0 % Low 40.1-51.0 [facility] Comment on above: Performed By: #### C BCD1 #### [facility] [address] [place], [place] [address] Hemoglobin (Bld) [Mass/Vol] 12.6 g/dL Low 13.7-17.5 [facility] Comment on above: Performed By: #### C BCD1 #### [facility] [address] [place], [place] [address] Immature Grans 0.30 % Normal [facility] Comment on above: Performed By: #### C BCD1 #### [facility] [address] [place] [address] Lymphocytes (Bld) [#/Vol] 1.59 thou/cmm Normal 0.84-2.85 [facility] Comment on above: Performed By: #### C BCD1 #### [facility] [address] [place] [address] Lymphocytes/100 WBC (Bld) 23.5 % Normal [facility] Comment on above: Performed By: #### C BCD1 #### [facility] [address] [place] [address] MCH (RBC) [Entitic mass] 30.1 pg Normal 25.7-32.2 [facility] Comment on above: Performed By: #### C BCD1 #### [facility] [address] [place] [address] MCHC (RBC) [Mass/Vol] 33.2 % Normal 32.3-36.5 [facility] Comment on above: Performed By: #### C BCD1 #### [facility] [address] [place] [address] MCV (RBC) [Entitic vol] 90.9 fL Normal 83.2-95.6 [facility] Comment on above: Performed By: #### C BCD1 #### [facility] [address] [place], [place] [address] Monocytes/100 WBC (Bld) 8.7 % Normal [facility] Comment on above: Performed By: #### C BCD1 #### [facility] [address] [place] [address] Platelet mean volume (Bld) [Entitic vol] 9.1 fL Normal 8.7-12.0 [facility] Comment on above: Performed By: #### C BCD1 #### [facility] [address] [place] [address] Platelets (Bld) [#/Vol] 231 thou/cmm Normal 141-365 [facility] Comment on above: Performed By: #### C BCD1 #### [facility] [address] [place] [address] RBC (Bld) [#/Vol] 4.18 mil/cmm Low 4.63-6.08 [facility] Comment on above: Performed By: #### C BCD1 #### [facility] [address] [place] [address] RDW SD 48.9 fl High 36.1-45.8 [facility] Comment on above: Performed By: #### C BCD1 #### [facility] [address] [place] [address] Seg Neutrophil 65.3 % Normal [facility] Comment on above: Performed By: #### C BCD1 #### [facility] [address] [place] [address] WBC (Bld) [#/Vol] 6.77 thou/cmm Normal 4.23-9.[address] [facility] Comment on above: Performed By: #### C BCD1 #### [facility] [address] [place] [address] MDRD GFRon 04-20-2019 GFR/1.73 sq M predicted among non-blacks MDRD (S/P/Bld) [Vol rate/Area] mL/min/{1.73_m2} Normal >60mL/min/ 1.73m2 [facility] Comment on above: Result Comment: If t he patient is , multiply the result by 1.210. Performed By: #### G FR #### [facility] [address] [place] [address] Basic Panelon 04-19-2019 Creatinine [Mass/Vol] 0.64 mg/dL Low 0.67-1.17 [facility] Comment on above: Performed By: #### P 8 #### [facility] [address] [place], [place] [address] Anion gap [Moles/Vol] 9 mmol/L Normal 8-16 [facility] Comment on above: Performed By: #### P 8 #### [facility] [address] [place], [place] [address] CO2 [Moles/Vol] 25 mmol/L Normal 21-32 [facility] Comment on above: Performed By: #### P 8 #### [facility] [address] [place], [place] [address] Glucose [Mass/Vol] 112 mg/dL High 70-99 [facility] Comment on above: Performed By: #### P 8 #### [facility] [address] [place], [place] [address] Urea nitrogen [Mass/Vol] 14 mg/dL Normal 7-18 [facility] Comment on above: Performed By: #### P 8 #### [facility] [address] [place], [place] [address] Calcium [Mass/Vol] 8.4 mg/dL Low 8.5-10.1 [facility] Comment on above: Performed By: #### P 8 #### [facility] [address] [place], [place] [address] Chloride [Moles/Vol] 109 mmol/L High 98-[address] [facility] Comment on above: Performed By: #### P 8 #### [facility] [address] [place], [place] [address] Potassium [Moles/Vol] 3.9 mmol/L Normal 3.5-5.1 [facility] Comment on above: Performed By: #### P 8 #### [facility] [address] [place], [place] [address] Sodium [Moles/Vol] 139 mmol/L Normal 136-145 [facility] Comment on above: Performed By: #### P 8 #### [facility] [address] [place], [place] [address] Hemogram/Diffon 04-19-2019 Abs Immature Grans 0.05 thou/cmm Normal 0.00-0.05 [facility] Comment on above: Performed By: #### C BCD1 #### [facility] [address] [place], [place] [address] Abs Neut (ANC) 11.22 thou/cmm High 1.78-5.38 [facility] Comment on above: Performed By: #### C BCD1 #### [facility] [address] [place] [address] Abs. Baso 0.03 thou/cmm Normal 0.01-0.08 [facility] Comment on above: Result Comment: Smea r scanned; tech agrees with automated differential Performed By: #### C BCD1 #### [facility] [address] [place] [address] Abs. [place] 0.92 thou/cmm High 0.30-0.82 [facility] Comment on above: Performed By: #### C BCD1 #### [facility] [address] [place] [address] Basophils/100 WBC (Bld) 0.2 % Normal [facility] Comment on above: Performed By: #### C BCD1 #### [facility] [address] [place], [place] [address] Eosinophils (Bld) [#/Vol] 0.00 thou/cmm Low 0.04-0.54 [facility] Comment on above: Performed By: #### C BCD1 #### [facility] [address] [place], [place] [address] Eosinophils/100 WBC (Bld) 0.0 % Normal [facility] Comment on above: Performed By: #### C BCD1 #### [facility] [address] [place] [address] Immature Grans 0.40 % Normal [facility] Comment on above: Performed By: #### C BCD1 #### [facility] [address] [place] [address] Lymphocytes (Bld) [#/Vol] 1.15 thou/cmm Normal 0.84-2.85 [facility] Comment on above: Performed By: #### C BCD1 #### [facility] [address] [place], [place] [address] Lymphocytes/100 WBC (Bld) 8.6 % Normal [facility] Comment on above: Performed By: #### C BCD1 #### [facility] [address] [place] [address] Monocytes/100 WBC (Bld) 6.9 % Normal [facility] Comment on above: Performed By: #### C BCD1 #### [facility] [address] [place] [address] Seg Neutrophil 83.9 % Normal [facility] Comment on above: Performed By: #### C BCD1 #### [facility] [address] [place] [address] Erythrocyte distribution width (RBC) [Ratio] 14.5 % High 11.6-14.4 [facility] Comment on above: Performed By: #### C BCD1 #### [facility] [address] [place] [address] Hematocrit (Bld) [Volume fraction] 39.0 % Low 40.1-51.0 [facility] Comment on above: Performed By: #### C BCD1 #### [facility] [address] [place] [address] Hemoglobin (Bld) [Mass/Vol] 13.0 g/dL Low 13.7-17.5 [facility] Comment on above: Performed By: #### C BCD1 #### [facility] [address] [place] [address] MCH (RBC) [Entitic mass] 30.0 pg Normal 25.7-32.2 [facility] Comment on above: Performed By: #### C BCD1 #### [facility] [address] [place] [address] MCHC (RBC) [Mass/Vol] 33.3 % Normal 32.3-36.5 [facility] Comment on above: Performed By: #### C BCD1 #### [facility] [address] [place] [address] MCV (RBC) [Entitic vol] 89.9 fL Normal 83.2-95.6 [facility] Comment on above: Performed By: #### C BCD1 #### [facility] [address] [place] [id number] Platelet mean volume (Bld) [Entitic vol] 9.3 fL Normal 8.7-12.0 [facility] Comment on above: Performed By: #### C BCD1 #### [facility] [address] [place], [place] [address] Platelets (Bld) [#/Vol] 258 thou/cmm Normal 141-365 [facility] Comment on above: Performed By: #### C BCD1 #### [facility] [address] [place] [id number] RBC (Bld) [#/Vol] 4.34 mil/cmm Low 4.63-6.08 [facility] Comment on above: Performed By: #### C BCD1 #### [facility] [address] [place] [address] RDW SD 47.3 fl High 36.1-45.8 [facility] Comment on above: Performed By: #### C BCD1 #### [facility] [address] [place] [id number] WBC (Bld) [#/Vol] 13.37 thou/cmm High 4.23-9.07 [facility] Comment on above: Performed By: #### C BCD1 #### [facility] [address] [place] [id number] Surgical Tissue Examon 04-18 Surgical Tissue Exam Test performed at [place] [address] NAME: TARA ARELLANO REQUESTING: GABBI WILLARD MD [...] PRINTED: 04/25/2019 Page 1 of 1 Normal [facility] Comment on above: Performed By: #### I RONS #### [place] [address] Ferritinon 02-07-2019 Ferritin [Mass/Vol] 858.30 ng/mL High 26.00-38 8. 00 [facility] Comment on above: Performed By: #### F ERR #### [place] [address] Oncology Hemogram/Diffon Abs. Baso 0.02 thou/cmm Normal 0.00-0.08 [facility] Comment on above: Result Comment: Test ing performed at: [facility], [address] [place] [address] Performed By: #### O CBCD #### [place] [address] Abs. [place] 0.39 thou/cmm Normal 0.19-0.80 [facility] Comment on above: Performed By: #### O CBCD #### [place] [address] Abs. Neut (ANC) 2.68 thou/cmm Normal 1.35-7.21 [facility] Comment on above: Performed By: #### O CBCD #### [place] [address] Basophils/100 WBC (Bld) 0.4 % Normal [facility] Comment on above: Performed By: #### O CBCD #### [place] [address] Eosinophils (Bld) [#/Vol] 0.20 thou/cmm Normal 0.00-0.36 [facility] Comment on above: Performed By: #### O CBCD #### [place] [address] Eosinophils/100 WBC (Bld) 4.3 % Normal [facility] Comment on above: Performed By: #### O CBCD #### [place] [address] Erythrocyte distribution width (RBC) [Ratio] 19.7 % High 11.8-14.5 [facility] Comment on above: Performed By: #### O CBCD #### [place] [address] Hematocrit (Bld) [Volume fraction] 36.5 % Low 39.6-50.7 [facility] Comment on above: Performed By: #### O CBCD #### [place] [address] Hemoglobin (Bld) [Mass/Vol] 12.2 g/dL Low 13.2-17.4 [facility] Comment on above: Performed By: #### O CBCD #### [place] [address] Lymphocytes (Bld) [#/Vol] 1.41 thou/cmm Normal 0.68-2.93 [facility] Comment on above: Performed By: #### O CBCD #### [place] [address] Lymphocytes/100 WBC (Bld) 30.0 % Normal [facility] Comment on above: Performed By: #### O CBCD #### [place] [address] MCH (RBC) [Entitic mass] 26.9 pg Low 27.4-32.8 [facility] Comment on above: Performed By: #### O CBCD #### [place] [address] MCHC (RBC) [Mass/Vol] 33.4 % Normal 31.9-35.6 [facility] Comment on above: Performed By: #### O CBCD #### [place] [address] MCV (RBC) [Entitic vol] 80.4 fL Low 81.8-95.6 [facility] Comment on above: Performed By: #### O CBCD #### [facility] [address] [place] [address] Monocytes/100 WBC (Bld) 8.2 % Normal [facility] Comment on above: Performed By: #### O CBCD #### [facility] [address] [place] [address] Platelet mean volume (Bld) [Entitic vol] 8.7 fL Low 8.8-12.1 [facility] Comment on above: Performed By: #### O CBCD #### [facility] [address] [place] [address] Platelets (Bld) [#/Vol] 254 thou/cmm Normal 150-370 [facility] Comment on above: Performed By: #### O CBCD #### [place] [address] RBC (Bld) [#/Vol] 4.54 mil/cmm Normal 4.22-5.80 [facility] Comment on above: Performed By: #### O CBCD #### [place] [address] Seg Neutrophil 57.1 % Normal [facility] Comment on above: Performed By: #### O CBCD #### [facility] [address] [place] [address] WBC (Bld) [#/Vol] 4.7 thou/cmm Normal 4.4-9.7 [facility] Comment on above: Performed By: #### O CBCD #### [facility] [address] [place] [address] Ferritinon 12-23-2018 Ferritin [Mass/Vol] 9.70 ng/mL Low 26.00-38 8. 00 [facility] Comment on above: Performed By: #### F ERR #### [facility] [address] [place] [address] Hemogramon 12-23-2018 Erythrocyte distribution width (RBC) [Ratio] 18.1 % High 11.6-14.4 [facility] Comment on above: Performed By: #### C BC1 #### [facility] [address] [place], [place] [address] Hematocrit (Bld) [Volume fraction] 32.6 % Low 40.1-51.0 [facility] Comment on above: Performed By: #### C BC1 #### [facility] [address] [place], [place] [address] Hemoglobin (Bld) [Mass/Vol] 10.1 g/dL Low 13.7-17.5 [facility] Comment on above: Performed By: #### C BC1 #### [facility] [address] [place] [address] MCH (RBC) [Entitic mass] 24.3 pg Low 25.7-32.2 [facility] Comment on above: Performed By: #### C BC1 #### [facility] [address] [place] [address] MCHC (RBC) [Mass/Vol] 31.0 % Low 32.3-36.5 [facility] Comment on above: Performed By: #### C BC1 #### [facility] [address] [place] [address] MCV (RBC) [Entitic vol] 78.4 fL Low 83.2-95.6 [facility] Comment on above: Performed By: #### C BC1 #### [facility] [address] [place] [address] Platelet mean volume (Bld) [Entitic vol] 9.1 fL Normal 8.7-12.0 [facility] Comment on above: Performed By: #### C BC1 #### [facility] [address] [place] [address] Platelets (Bld) [#/Vol] 261 thou/cmm Normal 141-365 [facility] Comment on above: Performed By: #### C BC1 #### [facility] [address] [place], [place] [address] RBC (Bld) [#/Vol] 4.16 mil/cmm Low 4.63-6.08 [facility] Comment on above: Performed By: #### C BC1 #### [facility] [address] [place] [address] RDW SD 51.1 fl High 36.1-45.8 [facility] Comment on above: Performed By: #### C BC1 #### [facility] [address] [place] [address] WBC (Bld) [#/Vol] 3.48 thou/cmm Low 4.23-9.[address] [facility] Comment on above: Performed By: #### C BC1 #### [facility] [address] [place] [address] Iron % Saturationon 12-24-19 19 Iron % Saturation 12 % Low 20-55 [facility] Comment on above: Performed By: #### I RONS #### [place] [address] Iron Binding Cap. 425 ug/dL Normal 250-450 [facility] Comment on above: Performed By: #### I RONS #### [place] [address] Iron Serum 53 ug/dL Low 65-175 [facility] Comment on above: Performed By: #### I RONS #### [place] [address] Vitamin B12on 12-23-2018 Cobalamin (Vitamin B12) [Mass/Vol] 589 pg/mL Normal 193-986 [facility] Comment on above: Performed By: #### B 12 #### [place] [address] Lab Report: Basic Metabolic Profile (BMP)on 09-08-2016 Anion gap 7 mmol/L Invalid Interpretation Code 09-22 [facility] Work Phone: [phone] Anion gap molar conc 7 mmol/L 09-[address] [facility] Work Phone: [phone] BUN/Creatinine Ratio 11.4 RATIO 10- [facility] Work Phone: [phone] Calcium 8.7 mg/dL 8.5-10.1 [facility] Work Phone: [phone] Chloride 110 mmol/L High 98-107 [facility] Work Phone: [phone] CO2 25.0 mmol/L Invalid Interpretation Code 21.0-32.0 [facility] Work Phone: [phone] CO2 ppres (BldV) 25.0 mmol/L 21.0-32.0 [facility] Work Phone: [phone] Creatinine 0.79 mg/dL 0.70-1.30 [facility] Work Phone: [phone] eGFR (non-black) 128 mL/min/{1.73_m2} Invalid Interpretation Code >60 [facility] Work Phone: [phone] eGFR (non-black) 106 mL/min/{1.73_m2} >60 [facility] Work Phone: [phone] EST GFR - AA 128 mL/min >60 [facility] Work Phone: [phone] Glucose 97 mg/dL Invalid Interpretation Code 70-110 [facility] Work Phone: [phone] Glucose mass conc 97 mg/dL 70-110 [facility] Work Phone: [phone] Potassium 3.9 mmol/L 3.5-5.1 [facility] Work Phone: [phone] Sodium 142 mmol/L 136-145 [facility] Work Phone: [phone] Urea nitrogen 9 mg/dL 7-18 [facility] Work Phone: [phone] Lab Report: CBC-Complete Blo od Cnt No Diffon 09-08-2016 Erythrocyte distribution width Ratio (RBC) 44.8 fL High 35.1-43.9 [facility] Work Phone: [phone] Erythrocyte distribution width Ratio (RBC) 13.5 % 11.6-14.6 [facility] Work Phone: [phone] Erythrocytes (RBC) 3.95 10*6/uL Low 4.6-6.[address] [facility] Work Phone: [phone] Hematocrit (HCT) 36.1 % Low 40-54 [facility] Work Phone: [phone] Hematocrit Volume Fraction (Bld) 36.1 % Low 40-54 [facility] Work Phone: Hemoglobin (HGB) 12.3 g/dL Low 13.0-16.5 [facility] Work Phone: [phone] MCH 31.1 pg Invalid Interpretation Code 27.0-32.0 [facility] Work Phone: [phone] MCH Entitic mass (RBC) 31.1 pg 27.0-32.0 [facility] Work Phone: [phone] MCHC 34.1 G/GL Invalid Interpretation Code 32-36 [facility] Work Phone: [phone] MCHC mass conc (RBC) 34.1 G/GL 32-[address] [facility] Work Phone: [phone] MCV 91.4 fL Invalid Interpretation Code 80-94 [facility] Work Phone: [phone] MCV Entitic volume (RBC) 91.4 fL 80-94 [facility] Work Phone: [phone] Platelet mean volume Entitic volume (Bld) 8.5 fL 6.2-12.0 [facility] Work Phone: [phone] Platelets 246 10*3/mm3 Invalid Interpretation Code 150-450 [facility] Work Phone: [phone] Platelets #/vol (Bld) 246 10*3/mm3 150-450 [facility] Work Phone: [phone] PMV by Kym 8.5 fL Invalid Interpretation Code 6.2-12.0 [facility] Work Phone: [phone] RBC #/vol (Bld) 3.95 10*6/uL Low 4.6-6.2 [facility] Work Phone: [phone] RDW-CA 13.5 % Invalid Interpretation Code 11.6-14.6 [facility] Work Phone: [phone] red blood cell distribution width, size density 44.8 fL High 35.1-43.9 [facility] Work Phone: [phone] WBC #/vol (Bld) 3.6 10*3/uL Low 4.4-11.0 [facility] Work Phone: [phone] WBC (Leukocytes) 3.6 10*3/uL Low 4.4-11.0 [facility] Work Phone: [phone] Lab Report: Partial Thrombop last Timeon 09-08-2016 aPTT 36.5 s High 24.1-36.2 [facility] Work Phone: [phone] Lab Report: Prothrombin Time w/INRon 09-08-2016 Coagulation tissue factor induced in platelet poor plasma 12.7 s 11.7-14.9 [facility] Work Phone: [phone] INR Coag RelTime (PPP) 1.0 {INR} [place] Work Phone: [phone] INR in blood by coagulation 1.0 {INR} Invalid Interpretation Code [facility] Work Phone: [phone] Office Visiton 08-20-2016 Dietary management education, guidance, and counseling (procedure) yes Invalid Interpretation Code [facility] Work Phone: [phone] Documentation of current medications (procedure) Done Invalid Interpretation Code [facility] Work Phone: [phone] Protein mass conc Done [facility] Work Phone: [phone] Tobacco smoking status NHIS Former smoker [facility] Work Phone: [phone] Tobacco use CPHS Former smoker Invalid Interpretation Code [facility] Work Phone: [phone] Replaced Document: Guzmanmark E CG Observationson 08-20-2016 EKG QRS axis 15 deg [facility] Work Phone: [phone] electrocardiogram interpretation Sinus Rhythm WITHIN NORMAL LIMITS Invalid Interpretation Code [facility] Work Phone: [phone] GE use only - for [employer] import when terms are not otherwise specified 391 ms Invalid Interpretation Code [facility] Work Phone: [phone] Interpretation Sinus Rhythm WITHIN NORMAL LIMITS [facility] Work Phone: [phone] P [place] 56 deg [facility] Work Phone: [phone] P wave axis, electrocardiogram 56 deg Invalid Interpretation Code [facility] Work Phone: [phone] MI Interval 152 ms [facility] Work Phone: [phone] MI interval, electrocardiogram 152 ms Invalid Interpretation Code [facility] Work Phone: [phone] Pulse (Heart Rate) 71 /min Invalid Interpretation Code [facility] Work Phone: QRS axis, electrocardiogram 15 deg Invalid Interpretation Code [facility] Work Phone: QRS Duration 94 ms [facility] Work Phone: QRS duration, electrocardiogram 94 ms Invalid Interpretation Code [facility] Work Phone: QT Interval new path ms [facility] Work Phone: QT interval, electrocardiogram new path ms Invalid Interpretation Code [facility] Work Phone: QTc Beard 391 ms [facility] Work Phone: T [place] 46 deg [facility] Work Phone: [phone] T wave axis, electrocardiogram 46 deg Invalid Interpretation Code [facility] Work Phone: [phone] Clinical Lists Update: Pre brace maker 08-19-2016 Left ventricular Ejection fraction 61 % [facility] Work Phone: [phone] Clinical Lists Update: Pre brace maker 06-18-2016 Alanine aminotransferase (ALT) 23 U/L [facility] Work Phone: [phone] Alkaline phosphatase (ALP) 63 U/L Invalid Interpretation Code [facility] Work Phone: [phone] ALP enzyme act/vol (Bld) 63 U/L [facility] Work Phone: [phone] Aspartate aminotransferase (AST) 23 U/L [facility] Work Phone: Cholesterol 222 mg/dL High [facility] Work Phone: HDL Cholesterol 34 mg/dL Low [facility] Work Phone: LDL Cholesterol 139 mg/dL High [facility] Work Phone: Triglyceride 246 mg/dL High [facility] Work Phone: very low density lipoproteins 49 mg/dL High [facility] Work Phone: [phone] Vital Signs Date Time Vital Sign Value Performing Clinician Facility 01-17-2025 09:45-0400 Body mass index (BMI) [Ratio] 27.12 kg/m2 Lew Broussardoble [employer] 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 Work Phone: [facility] 01-17-2025 09:45-0400 Body weight 83.92 kg Lew Knoble [employer] 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 Work Phone: [facility] 01-17-2025 09:45-0400 Diastolic blood pressure 69 mm[Hg] Lew Knoble [employer] 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 Work Phone: [facility] 01-17-2025 09:45-0400 Heart rate 79 /min Lew Aartioble [employer] 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 Work Phone: [facility] 01-17-2025 09:45-0400 Systolic blood pressure 111 mm[Hg] Lew Aartioble [employer] 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 Work Phone: [facility] 01-17-2025 08:22-0400 Body mass index (BMI) [Ratio] 27.12 kg/m2 Kimberly Click [employer] 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 Work Phone: [facility] 01-17-2025 08:22-0400 Body weight 83.92 kg Kimberly Click [employer] 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 Work Phone: [facility] 01-17-2025 08:22-0400 Diastolic blood pressure 72 mm[Hg] Kimberly Click [employer] 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 Work Phone: [facility] 01-17-2025 08:22-0400 Heart rate 80 /min Kimberly Click [employer] 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 Work Phone: [facility] 01-17-2025 08:22-0400 Respiratory rate 15 /min Kimberly Click [employer] 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 Work Phone: [facility] 01-17-2025 08:22-0400 SaO2% (BldA) [Mass fraction] 97 % Kimberly Click [employer] 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 Work Phone: [facility] 01-17-2025 08:22-0400 Systolic blood pressure 124 mm[Hg] Kimberly Click [employer] 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 Work Phone: [facility] 01-03-2025 11:38-0400 Body mass index (BMI) [Ratio] 26.83 kg/m2 Lew Bird [employer] 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 Work Phone: [facility] 01-03-2025 11:38-0400 Body weight 83 kg Lew Bird [employer] 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 Work Phone: [facility] 01-03-2025 11:38-0400 Diastolic blood pressure 56 mm[Hg] Lew Bird [employer] 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 Work Phone: [facility] 01-03-2025 11:38-0400 Heart rate 88 /min Lew Bird [employer] 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 Work Phone: [facility] 01-03-2025 11:38-0400 Systolic blood pressure 115 mm[Hg] Lew Bird [employer] 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 Work Phone: [facility] 12-29-2024 18:12-0400 Body mass index (BMI) [Ratio] 27.15 kg/m2 Lew Bird [employer] 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 Work Phone: [facility] 12-29-2024 18:12-0400 Body weight 84 kg Lew Bird [employer] 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 Work Phone: [facility] 12-29-2024 18:12-0400 Diastolic blood pressure 68 mm[Hg] Lew Bird [employer] 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 Work Phone: [facility] 12-29-2024 18:12-0400 Heart rate 84 /min Lew Bird [employer] 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 Work Phone: [facility] 12-29-2024 18:12-0400 Systolic blood pressure 124 mm[Hg] Lew Bird [employer] 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 Work Phone: [facility] 12-13-2024 08:40-0400 Body mass index (BMI) [Ratio] 26.5 kg/m2 Lew Bird [employer] 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 Work Phone: [facility] 12-13-2024 08:40-0400 Body weight 82 kg Lew Bird [employer] 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 Work Phone: [facility] 12-13-2024 08:40-0400 Diastolic blood pressure 68 mm[Hg] Lew Bird APRN.VOLLEYBALL PLAYER Work Phone: [facility] 12-13-2024 08:40-0400 Heart rate 76 /min Lew Bird APRN.[employer]LEYBALL PLAYER Work Phone: [facility] 12-13-2024 08:40-0400 Systolic blood pressure 112 mm[Hg] Lew Bird APRN.VOLLEYBALL PLAYER Work Phone: [facility] 2024 17:06-0400 Body temperature 98.5 [degF] Dr. Andry Jean-Baptiste MD Work Phone: 9(707)723-027278 [place] [address] 2024 17:06-0400 Diastolic blood pressure 86 mm[Hg] Dr. Andry Jean-Baptiste MD Work Phone: 3(455)831-365978 [place] [address] 2024 17:06-0400 Heart rate 76 /min Dr. Andry Jean-Baptiste MD Work Phone: 5(675)409-768578 [place] [address] 2024 17:06-0400 Respiratory rate 16 /min Dr. Andry Jean-Baptiste MD Work Phone: 2(079)633-757760 [place] [address] 2024 17:06-0400 SaO2% (BldA) [Mass fraction] 98 % Dr. Andry Jean-Baptiste MD Work Phone: 7(070)692-392278 [place] [address] 2024 17:06-0400 Systolic blood pressure 136 mm[Hg] Dr. Andry Jean-Baptiste MD Work Phone: 6(745)745-385878 [place] [address] 2024 12:27-0400 Body height 177.[address] Andry Jean-Baptiste MD Work Phone: 1(749)431-894260 [place] [address] 2024 12:27-0400 Body mass index (BMI) [Ratio] 26.2 kg/m2 Dr. Andry Jean-Baptiste MD Work Phone: 5(253)433-210478 [place] [address] 2024 12:27-0400 Body weight 82.[address] Andry Jean-Baptiste MD Work Phone: 0(900)887-340560 [place] [address] 11-13-2024 18:23-0400 Body temperature 98.4 [degF] Dr. Andry Jean-Baptiste MD Work Phone: 1(722)608-324060 [place] [address] 11-13-2024 18:23-0400 Diastolic blood pressure 64 mm[Hg] Dr. Andry Jean-Baptiste MD Work Phone: 4(308)594-513860 [place] [address] 11-13-2024 18:23-0400 Heart rate 80 /min Dr. Andry Jean-Baptiste MD Work Phone: 2(374)429-783160 [place] [address] 11-13-2024 18:23-0400 Respiratory rate 98 /min Dr. Andry Jean-Baptiste MD Work Phone: 6(399)302-128560 [place] [address] 11-13-2024 18:23-0400 SaO2% (BldA) [Mass fraction] 99 % Dr. Andry Jean-Baptiste MD Work Phone: 8(788)417-243860 [place] [address] 11-13-2024 18:23-0400 Systolic blood pressure 128 mm[Hg] Dr. Andry Jean-Baptiste MD Work Phone: 5(183)938-382260 [place] [address] 11-13-2024 17:51-0400 Body height 177.[address] Andry Jean-Baptiste MD Work Phone: 0(128)796-625460 [place] [address] 11-13-2024 17:51-0400 Body mass index (BMI) [Ratio] 26.4 kg/m2 Dr. Andry Jean-Baptiste MD Work Phone: 2(972)138-743660 [place] [address] 11-13-2024 17:51-0400 Body weight 83.[address] Andry Jean-Baptiste MD Work Phone: 4(146)068-854660 [place] [address] 09-09-2024 10:16-0400 Body mass index (BMI) [Ratio] 26.39 kg/m2 Teri Gross MD Work Phone: 8(910)280-110247 [place] [address] 09-09-2024 10:16-0400 Body temperature 97 [degF] Teri Gross MD Work Phone: 4(118)710-918847 [place] [address] 09-09-2024 10:16-0400 Body weight 81.65 kg Teri Gross MD Work Phone: 5(231)149-441147 [place] [address] 09-09-2024 10:16-0400 Diastolic blood pressure 72 mm[Hg] Teri Gross MD Work Phone: [facility] 09-09-2024 10:16-0400 Heart rate 82 /min Teri Gross MD Work Phone: [facility] 09-09-2024 10:16-0400 Respiratory rate 20 /min Teri Gross MD Work Phone: [facility] 09-09-2024 10:16-0400 SaO2% (BldA) [Mass fraction] 97 % Teri Gross MD Work Phone: [facility] 09-09-2024 10:16-0400 Systolic blood pressure 128 mm[Hg] Teri Gross MD Work Phone: [facility] 08-18-2024 11:19-0400 Body mass index (BMI) [Ratio] 27.12 kg/m2 Jaimie Suppan [employer] 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 Work Phone: [facility] 08-18-2024 11:19-0400 Body temperature 97.59 [degF] Jaimie Suppan [employer] 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 Work Phone: [facility] 08-18-2024 11:19-0400 Body weight 83.92 kg Jaimie Suppan [employer] 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 Work Phone: [facility] 08-18-2024 11:19-0400 Diastolic blood pressure 72 mm[Hg] Jaimie Suppan [employer] 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 Work Phone: [facility] 08-18-2024 11:19-0400 Heart rate 76 /min Jaimie Suppan [employer] 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 Work Phone: [facility] 08-18-2024 11:19-0400 SaO2% (BldA) [Mass fraction] 98 % Jaimie Suppan [employer] 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 Work Phone: [facility] 08-18-2024 11:19-0400 Systolic blood pressure 128 mm[Hg] Jaimie Suppan [employer] 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 Work Phone: [facility] 07-14-2024 09:34-0500 Body mass index (BMI) [Ratio] 27.12 kg/m2 Teri Gross MD Work Phone: [facility] 07-14-2024 09:34-0500 Body weight 83.92 kg Teri Gross MD Work Phone: [facility] 07-14-2024 09:34-0500 Diastolic blood pressure 70 mm[Hg] Teri Gross MD Work Phone: [facility] 07-14-2024 09:34-0500 Heart rate 81 /min Teri Gross MD Work Phone: [facility] 07-14-2024 09:34-0500 Respiratory rate 16 /min Teri Gross MD Work Phone: [facility] 07-14-2024 09:34-0500 SaO2% (BldA) [Mass fraction] 98 % Teri Gross MD Work Phone: [facility] 07-14-2024 09:34-0500 Systolic blood pressure 132 mm[Hg] Teri Gross MD Work Phone: [facility] 07-05-2024 11:59-0500 Body mass index (BMI) [Ratio] 26.98 kg/m2 Jaimie Suppan [employer] 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 Work Phone: [facility] 07-05-2024 11:59-0500 Body temperature 97.81 [degF] Jaimie Suppan [employer] 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 Work Phone: [facility] 07-05-2024 11:59-0500 Body weight 83.46 kg Jaimie Suppan [employer]400 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 Work Phone: [facility] 07-05-2024 11:59-0500 Diastolic blood pressure 54 mm[Hg] Jaimie Suppan [employer]400 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 Work Phone: [facility] 07-05-2024 11:59-0500 Heart rate 88 /min Jaimie Suppan [employer] 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 Work Phone: [facility] 07-05-2024 11:59-0500 SaO2% (BldA) [Mass fraction] 99 % Jaimie Jett APRN.[employer]LEYB[employer] PLAYER Work Phone: [facility] 07-05-2024 11:59-0500 Systolic blood pressure 110 mm[Hg] Jaimie Jett APRN.[employer] Work Phone: [facility] 07-01-2024 13:30-0500 Body mass index (BMI) [Ratio] 25.66 kg/m2 Lew Bird APRN.[employer] Work Phone: [facility] 07-01-2024 13:30-0500 Body weight 79.38 kg Lew Bird APRN.[employer] Work Phone: [facility] 07-01-2024 13:30-0500 Diastolic blood pressure 71 mm[Hg] Lew Bird APRN.[employer] Work Phone: [facility] 07-01-2024 13:30-0500 Heart rate 82 /min Lew Bird APRN.[employer] Work Phone: [facility] 07-01-2024 13:30-0500 SaO2% (BldA) [Mass fraction] 98 % Lew Bird APRN.[employer] Work Phone: [facility] 07-01-2024 13:30-0500 Systolic blood pressure 120 mm[Hg] Lew Bird APRN.[employer] Work Phone: [facility] 06-21-2024 15:35-0500 Body mass index (BMI) [Ratio] 26.68 kg/m2 Jaimie Jett APRN.[employer] Work Phone: [facility] 06-21-2024 15:35-0500 Body temperature 101.41 [degF] Jaimie Jett APRN.[employer] Work Phone: [facility] 06-21-2024 15:35-0500 Body weight 82.56 kg Jaimie Jett APRN.[employer] Work Phone: [facility] 06-21-2024 15:35-0500 Diastolic blood pressure 72 mm[Hg] Jaimie Suppan [employer] 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 Work Phone: [facility] 06-21-2024 15:35-0500 Heart rate 105 /min Jaimie Suppan [employer] 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 Work Phone: [facility] 06-21-2024 15:35-0500 Respiratory rate 14 /min Jaimie Suppan [employer] 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 Work Phone: [facility] 06-21-2024 15:35-0500 SaO2% (BldA) [Mass fraction] 95 % Jaimie Suppan [employer] 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 Work Phone: [facility] Comment on above: on room air 06-21-2024 15:35-0500 Systolic blood pressure 120 mm[Hg] Jaimie Suppan [employer] 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 Work Phone: [facility] 06-15-2024 09:41-0500 Body height 175.9 cm Andry Jean-Baptiste MD Work Phone: [facility] 06-15-2024 09:41-0500 Body mass index (BMI) [Ratio] 26.39 kg/m2 Andry Jean-Baptiste MD Work Phone: [facility] 06-15-2024 09:41-0500 Body weight 81.65 kg Andry Jean-Baptiste MD Work Phone: [facility] 06-15-2024 09:41-0500 Diastolic blood pressure 68 mm[Hg] Andry Jean-Baptiste MD Work Phone: [facility] 06-15-2024 09:41-0500 Heart rate 73 /min Andry Jean-Baptiste MD Work Phone: [facility] 06-15-2024 09:41-0500 SaO2% (BldA) [Mass fraction] 97 % Andry Jean-Baptiste MD Work Phone: [facility] [facility]24 09:41-0500 Systolic blood pressure 124 mm[Hg] Andry Jean-Baptiste MD Work Phone: [facility] 04-06-2024 12:07-0500 Diastolic blood pressure 62 mm[Hg] Andry Jean-Baptiste MD Work Phone: [facility] 04-06-2024 12:07-0500 Systolic blood pressure 122 mm[Hg] Andry Jean-Baptiste MD Work Phone: [facility] 04-06-2024 11:45-0500 Body mass index (BMI) [Ratio] 26.43 kg/m2 Andry Jean-Baptiste MD Work Phone: [facility] 04-06-2024 11:45-0500 Body weight 81.19 kg Andry Jean-Baptiste MD Work Phone: [facility] 04-06-2024 11:45-0500 Heart rate 72 /min Andry Jean-Baptiste MD Work Phone: [facility] 04-06-2024 11:45-0500 Respiratory rate 16 /min Andry Jean-Baptiste MD Work Phone: [facility] 12-08-2023 09:18-0400 Body mass index (BMI) [Ratio] 26.29 kg/m2 Irma Perez PA-C Work Phone: [facility] 12-08-2023 09:18-0400 Body temperature 97.3 [degF] Irma Perez PA-C Work Phone: [facility] 12-08-2023 09:18-0400 Body weight 80.74 kg Irma Perez PA-C Work Phone: [facility] 12-08-2023 09:18-0400 Diastolic blood pressure 62 mm[Hg] Irma Perez PA-C Work Phone: [facility] 12-08-2023 09:18-0400 Heart rate 77 /min Irma Perez PA-C Work Phone: [facility] 12-08-2023 09:18-0400 Respiratory rate 16 /min Irma Perez PA-C Work Phone: [facility] 12-08-2023 09:18-0400 SaO2% (BldA) [Mass fraction] 94 % Irma MIRANDA-C Work Phone: [facility] 12-08-2023 09:18-0400 Systolic blood pressure 102 mm[Hg] Irma Perez PA-C Work Phone: [facility] 10-14-2023 09:44-0400 Diastolic blood pressure 70 mm[Hg] Maria De Jesus Radha PA-C Work Phone: [facility] 10-14-2023 09:44-0400 Heart rate 68 /min Maria De Jesus Radha PA-C Work Phone: [facility] 10-14-2023 09:44-0400 Respiratory rate 14 /min Maria De Jesus Radha PA-C Work Phone: [facility] 10-14-2023 09:44-0400 SaO2% (BldA) [Mass fraction] 98 % Maria De Jesus Radha PA-C Work Phone: [facility] 10-14-2023 09:44-0400 Systolic blood pressure 122 mm[Hg] Maria De Jesus Radha PA-C Work Phone: [facility] 10-02-2023 11:50-0400 Body mass index (BMI) [Ratio] 25.99 kg/m2 Andry Jean-Baptiste MD Work Phone: [facility] 10-02-2023 11:50-0400 Body temperature 97 [degF] Andry Jean-Baptiste MD Work Phone: [facility] 10-02-2023 11:50-0400 Body weight 79.83 kg Andry Jean-Baptiste MD Work Phone: [facility] 10-02-2023 11:50-0400 Diastolic blood pressure 72 mm[Hg] Andry Jean-Baptiste MD Work Phone: [facility] 10-02-2023 11:50-0400 Heart rate 79 /min Andry Jean-Baptiste MD Work Phone: [facility] 10-02-2023 11:50-0400 SaO2% (BldA) [Mass fraction] 97 % Andry Jean-Baptiste MD Work Phone: [facility] 10-02-2023 11:50-0400 Systolic blood pressure 120 mm[Hg] Andry Jean-Baptiste MD Work Phone: [facility] 09-20-2023 16:00-0400 Body temperature 98.9 [degF] [place] 09-20-2023 16:00-0400 Diastolic blood pressure 45 mm[Hg] [facility] 09-20-2023 16:00-0400 Heart rate 103 /min [facility] 09-20-2023 16:00-0400 Inhaled oxygen flow rate 3 L/min [facility] 09-20-2023 16:00-0400 Respiratory rate 25 /min [place] 09-20-2023 16:00-0400 SaO2% (BldA) [Mass fraction] 94 % [facility] 09-20-2023 16:00-0400 Systolic blood pressure 121 mm[Hg] [facility] 09-20-2023 13:02-0400 Body height 180.34 cm [facility] 09-20-2023 13:02-0400 Body mass index (BMI) [Ratio] 25.3 kg/m2 [facility] 09-20-2023 13:02-0400 Body weight 82.46 kg [facility] 09-18-2023 15:09-0400 Body mass index (BMI) [Ratio] 27.17 kg/m2 Lew Bird APRN.[employer]LEYB[employer]ER Work Phone: [facility] 09-18-2023 15:09-0400 Body temperature 100.71 [degF] Lew Bird APRN.[employer]LEYBALL PLAYER Work Phone: [facility] 09-18-2023 15:09-0400 Body weight 83.46 kg Lew Bird APRN.[employer]LEYBALL PLAYER Work Phone: [facility] 09-18-2023 15:09-0400 Diastolic blood pressure 60 mm[Hg] Lew Bird APRN.VOLLEYBALL PLAYER Work Phone: [facility] 09-18-2023 15:09-0400 Respiratory rate 16 /min Lew Bird APRN.[employer]LEYBALL PLAYER Work Phone: [facility] 09-18-2023 15:09-0400 SaO2% (BldA) [Mass fraction] 95 % Lew Bird [employer] 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 Work Phone: [facility] 09-18-2023 15:09-0400 Systolic blood pressure 148 mm[Hg] Lew Bird APRN.VOLLEYBALL PLAYER Work Phone: [facility] 07-23-2023 13:23-0400 Body weight 85.82 kg Teri Gross MD Work Phone: [facility] 07-23-2023 13:23-0400 Diastolic blood pressure 60 mm[Hg] Teri Gross MD Work Phone: [facility] 07-23-2023 13:23-0400 Heart rate 77 /min Teri Gross MD Work Phone: [facility] 07-23-2023 13:23-0400 Respiratory rate 18 /min Teri Gross MD Work Phone: [facility] 07-23-2023 13:23-0400 SaO2% (BldA) [Mass fraction] 94 % Teri Gross MD Work Phone: [facility] 07-23-2023 13:23-0400 Systolic blood pressure 120 mm[Hg] Teri Gross MD Work Phone: [facility] 05-18-2023 14:43-0500 Diastolic blood pressure 70 mm[Hg] [facility] 05-18-2023 14:43-0500 Heart rate 82 /min [facility] 05-18-2023 14:43-0500 Respiratory rate 12 /min [place] 05-18-2023 14:43-0500 SaO2% (BldA) [Mass fraction] 93 % [facility] 05-18-2023 14:43-0500 Systolic blood pressure 147 mm[Hg] [facility] 05-18-2023 12:11-0500 Body height 177.8 cm [facility] 05-18-2023 12:11-0500 Body mass index (BMI) [Ratio] 25.9 kg/m2 [facility] 05-18-2023 [id number] Body temperature 96.7 [degF] [place] 05-18-2023 [id number] Body weight 82.1 kg [facility] 04-28-2023 11:27-0500 Body height 176.5 cm Andry Jean-Baptiste MD Work Phone: [facility] 04-28-2023 11:27-0500 Body weight 83.92 kg Andry Jean-Baptiste MD Work Phone: [facility] 04-28-2023 11:27-0500 Diastolic blood pressure 74 mm[Hg] Andry Jean-Baptiste MD Work Phone: [facility] 04-28-2023 11:27-0500 Heart rate 81 /min Andry Jean-Baptiste MD Work Phone: [facility] 04-28-2023 11:27-0500 Respiratory rate 18 /min Andry Jean-Baptiste MD Work Phone: [facility] 04-28-2023 11:27-0500 SaO2% (BldA) [Mass fraction] 96 % Andry Jean-Baptiste MD Work Phone: [facility] 04-28-2023 11:27-0500 Systolic blood pressure 132 mm[Hg] Andry Jean-Baptiste MD Work Phone: [facility] 04-16-2023 15:10-0500 Body height 176.1 cm Teri Gross MD Work Phone: [facility] 04-16-2023 15:10-0500 Body weight 83.92 kg Teri Gross MD Work Phone: [facility] 04-16-2023 15:10-0500 Diastolic blood pressure 68 mm[Hg] Teri Gross MD Work Phone: [facility] 04-16-2023 15:10-0500 Heart rate 92 /min Teri Gross MD Work Phone: [facility] 04-16-2023 15:10-0500 Respiratory rate 16 /min Teri Gross MD Work Phone: [facility] 04-16-2023 15:10-0500 SaO2% (BldA) [Mass fraction] 96 % Teri Gross MD Work Phone: [facility] 04-16-2023 15:10-0500 Systolic blood pressure 122 mm[Hg] Teri Gross MD Work Phone: [facility] 04-14-2023 07:37-0500 Body weight 85.28 kg Lew Bird [employer] 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 Work Phone: [facility] 04-14-2023 07:37-0500 Diastolic blood pressure 70 mm[Hg] Lew Bird [employer]400 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 Work Phone: [facility] 04-14-2023 07:37-0500 Heart rate 92 /min Lew Bird [employer]400 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 Work Phone: [facility] 04-14-2023 07:37-0500 Respiratory rate 16 /min Lew Bird [employer]400 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 Work Phone: [facility] 04-14-2023 07:37-0500 Systolic blood pressure 126 mm[Hg] Lew Bird [employer]400 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 Work Phone: [facility] 03-20-2023 12:33-0500 Heart rate 83 /min [facility] 03-20-2023 12:33-0500 Respiratory rate 16 /min [place] 03-20-2023 12:33-0500 SaO2% (BldA) [Mass fraction] 95 % [facility] 03-20-2023 11:35-0500 Body height 177.8 cm [facility] 03-20-2023 11:35-0500 Body mass index (BMI) [Ratio] 26.9 kg/m2 [facility] 03-20-2023 11:35-0500 Body temperature 96.2 [degF] [place] 03-20-2023 11:35-0500 Body weight 84.91 kg [facility] 03-20-2023 11:35-0500 Diastolic blood pressure 63 mm[Hg] [facility] 03-20-2023 11:35-0500 Systolic blood pressure 139 mm[Hg] [facility] 02-20-2023 14:04-0400 Body weight 84.37 kg Lwe Bird [employer]400 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 Work Phone: [facility] 02-20-2023 14:04-0400 Diastolic blood pressure 78 mm[Hg] Lew Bird [employer]400 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 Work Phone: [facility] 02-20-2023 14:04-0400 Heart rate 72 /min Lew Henok [employer]400 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 Work Phone: [facility] 02-20-2023 14:04-0400 Respiratory rate 16 /min Lew Brid [employer]400 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 Work Phone: [facility] 02-20-2023 14:04-0400 SaO2% (BldA) [Mass fraction] 97 % Lew Bird [employer]400 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 Work Phone: [facility] 02-20-2023 14:04-0400 Systolic blood pressure 122 mm[Hg] Lew Bird [employer]400 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 Work Phone: [facility] 02-16-2023 14:20-0400 Body temperature 97.11 [degF] Eulalia Wells [employer]400 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 Work Phone: [facility] 02-16-2023 14:20-0400 Body weight 83.19 kg Eulalia Wells [employer]400 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 Work Phone: [facility] 02-16-2023 14:20-0400 Diastolic blood pressure 72 mm[Hg] Eulalia Wells [employer]400 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 Work Phone: [facility] 02-16-2023 14:20-0400 Heart rate 88 /min Eulalia Wells [employer]400 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 Work Phone: [facility] 02-16-2023 14:20-0400 Respiratory rate 16 /min Eulalia Wells [employer]400 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 Work Phone: [facility] 02-16-2023 14:20-0400 SaO2% (BldA) [Mass fraction] 96 % Eulalia Wells [employer]400 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 Work Phone: [facility] 02-16-2023 14:20-0400 Systolic blood pressure 110 mm[Hg] Eulalia Wells [employer]400 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 Work Phone: [facility] 02-09-2023 18:00-0400 Diastolic blood pressure 64 mm[Hg] [facility] 02-09-2023 18:00-0400 Heart rate 89 /min [facility] 02-09-2023 18:00-0400 Respiratory rate 22 /min [place] 02-09-2023 18:00-0400 SaO2% (BldA) [Mass fraction] 93 % [facility] 02-09-2023 18:00-0400 Systolic blood pressure 128 mm[Hg] [facility] 02-09-2023 12:35-0400 Body temperature 97.9 [degF] [place] 09-17-2022 11:44-0400 Diastolic blood pressure 70 mm[Hg] Gloria Haagen [employer]400 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 Work Phone: [facility] 09-17-2022 11:44-0400 Heart rate 73 /min Gloria Haagen [employer]400 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 Work Phone: [facility] 09-17-2022 11:44-0400 Respiratory rate 18 /min Gloria Haagen [employer]400 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 Work Phone: [facility] 09-17-2022 11:44-0400 SaO2% (BldA) [Mass fraction] 93 % Gloria Haagen [employer]400 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 Work Phone: [facility] 09-17-2022 11:44-0400 Systolic blood pressure 112 mm[Hg] Gloria Haagen [employer]400 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 Work Phone: [facility] 09-05-2022 07:48-0400 Body temperature 97.3 [degF] Irma Perez PA-C Work Phone: [facility] 09-05-2022 07:48-0400 Body weight 82.1 kg Irma Perez PA-C Work Phone: [facility] 09-05-2022 07:48-0400 Diastolic blood pressure 60 mm[Hg] Irma Perez PA-C Work Phone: [facility] 09-05-2022 07:48-0400 Heart rate 76 /min Irma Perez PA-C Work Phone: [facility] 09-05-2022 07:48-0400 Respiratory rate 18 /min Irma Perez PA-C Work Phone: [facility] 09-05-2022 07:48-0400 Systolic blood pressure 120 mm[Hg] Irma Perez PA-C Work Phone: [facility] 09-02-2022 15:54-0400 Body temperature 97.8 [degF] Dr. Andry Jean-Baptiste Work Phone: [facility] 09-02-2022 15:54-0400 Diastolic blood pressure 54 mm[Hg] Dr. Andry Jean-Baptiste Work Phone: [facility] 09-02-2022 15:54-0400 Heart rate 75 /min Dr. Andry Jean-Baptiste Work Phone: [facility] 09-02-2022 15:54-0400 Respiratory rate 16 /min Dr. Andry Jean-Baptiste Work Phone: [facility] 09-02-2022 15:54-0400 SaO2% (BldA) [Mass fraction] 96 % Dr. Andry Jean-Baptiste Work Phone: [facility] 09-02-2022 15:54-0400 Systolic blood pressure 110 mm[Hg] Dr. Andry Jean-Baptiste Work Phone: [facility] 09-02-2022 13:09-0400 Body height 177.[address] Andry Jean-Baptiste Work Phone: [facility] 09-02-2022 13:09-0400 Body mass index (BMI) [Ratio] 25.9 kg/m2 Dr. Andry Jean-Baptiste Work Phone: [facility] 09-02-2022 13:09-0400 Body weight [address] Andry Jean-Baptiste Work Phone: [facility] 07-14-2022 09:00-0500 Body weight 84.82 kg Lew Bird [employer]400 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 Work Phone: [facility] 07-14-2022 09:00-0500 Diastolic blood pressure 60 mm[Hg] Lew Bird [employer]400 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 Work Phone: [facility] 07-14-2022 09:00-0500 Heart rate 80 /min Lew Bird [employer]400 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 Work Phone: [facility] 07-14-2022 09:00-0500 Respiratory rate 14 /min Lew Bird [employer]400 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 Work Phone: [facility] 07-14-2022 09:00-0500 Systolic blood pressure 118 mm[Hg] Lew Bird [employer]400 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 Work Phone: [facility] 05-26-2022 10:49-0500 Body height 178 cm Ronak Masci DO Work Phone: [facility] 05-26-2022 10:49-0500 Body temperature 97.5 [degF] Ronak Masci DO Work Phone: [facility] 05-26-2022 10:49-0500 Body weight 84.6 kg Ronak Masci DO Work Phone: [facility] 05-26-2022 10:49-0500 Diastolic blood pressure 53 mm[Hg] Ronak Masci DO Work Phone: [facility] 05-26-2022 10:49-0500 Heart rate 75 /min Ronak Masci DO Work Phone: [facility] 05-26-2022 10:49-0500 SaO2% (BldA) [Mass fraction] 98 % Ronak Masci DO Work Phone: [facility] 05-26-2022 10:49-0500 Systolic blood pressure 120 mm[Hg] Ronak Stauffer DO Work Phone: [facility] 05-15-2022 13:16-0500 Body temperature 96.6 [degF] Andry Jean-Baptiste MD Work Phone: [facility] 05-15-2022 13:16-0500 Body weight 81.65 kg Andry Jean-Baptiste MD Work Phone: [facility] 05-15-2022 13:16-0500 Diastolic blood pressure 70 mm[Hg] Andry Jean-Baptiste MD Work Phone: [facility] 05-15-2022 13:16-0500 Heart rate 97 /min Andry Jean-Baptiste MD Work Phone: [facility] 05-15-2022 13:16-0500 Respiratory rate 22 /min Andry Jean-Baptiste MD Work Phone: [facility] 05-15-2022 13:16-0500 SaO2% (BldA) [Mass fraction] 98 % Andry Jean-Baptiste MD Work Phone: [facility] 05-15-2022 13:16-0500 Systolic blood pressure 138 mm[Hg] Andry Jean-Baptiste MD Work Phone: [facility] 05-01-2022 14:34-0500 Body temperature 98.71 [degF] Radha Bishop APRN.VOLLEYBALL PLAYER Work Phone: [facility] 05-01-2022 14:34-0500 Body weight 81.1 kg Radha Bishop APRN.VOLLEYBALL PLAYER Work Phone: [facility] 05-01-2022 14:34-0500 Diastolic blood pressure 76 mm[Hg] Radha Bishop APRN.VOLLEYBALL PLAYER Work Phone: [facility] 05-01-2022 14:34-0500 Heart rate 93 /min Radha Bishop APRN.VOLLEYBALL PLAYER Work Phone: [facility] 05-01-2022 14:34-0500 Respiratory rate 18 /min Radha Bishop APRN.VOLLEYBALL PLAYER Work Phone: [facility] 05-01-2022 14:34-0500 SaO2% (BldA) [Mass fraction] 97 % Radha Bishop [employer]400 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 Work Phone: [facility] 05-01-2022 14:34-0500 Systolic blood pressure 124 mm[Hg] Radha Bishop [employer]400 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 Work Phone: [facility] 03-07-2022 07:54-0400 Body height 175.9 cm Andry Jean-Baptiste MD Work Phone: [facility] 03-07-2022 07:54-0400 Body weight 79.38 kg Andry Jean-Baptiste MD Work Phone: [facility] 03-07-2022 07:54-0400 Diastolic blood pressure 70 mm[Hg] Andry Jean-Baptiste MD Work Phone: [facility] 03-07-2022 07:54-0400 Heart rate 76 /min Andry Jean-Baptiste MD Work Phone: [facility] 03-07-2022 07:54-0400 Respiratory rate 16 /min Andry Jean-aBptiste MD Work Phone: [facility] 03-07-2022 07:54-0400 Systolic blood pressure 132 mm[Hg] Andry Jean-Baptiste MD Work Phone: [facility] 11-13-2021 09:23-0400 Body height 177 cm Angelica Zurita [employer]400 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 Work Phone: [facility] 11-13-2021 09:23-0400 Body temperature 97 [degF] [place] Zurita [employer]400 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 Work Phone: [facility] 11-13-2021 09:23-0400 Body weight 79.61 kg Angelica Zurita [employer]400 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 Work Phone: [facility] 11-13-2021 09:23-0400 Diastolic blood pressure 57 mm[Hg] Angelica Zurita [employer]400 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 Work Phone: [facility] 11-13-2021 09:23-0400 Heart rate 70 /min nAgelica Zurita [employer]400 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 Work Phone: [facility] 11-13-2021 09:23-0400 SaO2% (BldA) [Mass fraction] 97 % Angelica Zurita [employer]400 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 Work Phone: [facility] 11-13-2021 09:23-0400 Systolic blood pressure 120 mm[Hg] Angelica Zurita [employer]400 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 Work Phone: [facility] 10-24-2021 10:40-0400 Body weight 79.83 kg Andry Jean-Baptiste MD Work Phone: [facility] 08-20-2016 13:32-0400 Heart rate 71 /min Sena Hall [facility] Work Phone: 08-20-2016 13:03-0400 BMI (Body Mass Index) 27.52 kg/m2 Ronak Barry MD [facility] Work Phone: 08-20-2016 13:03-0400 BP Diastolic 72 mm[Hg] Ronak Barry MD [facility] Work Phone: 08-20-2016 13:03-0400 BP Systolic 122 mm[Hg] Ronak Barry MD [facility] Work Phone: 08-20-2016 13:03-0400 Height 175.26 cm Ronak Barry MD [facility] Work Phone: 08-20-2016 13:03-0400 Pulse (Heart Rate) 72 /min [facility] Work Phone: 08-20-2016 13:03-0400 Respiratory Rate 14 /min Ronak Barry MD [facility] Work Phone: 08-20-2016 13:03-0400 Weight 84.55 kg Ron[facility] Work Phone: Encounters Encounter Date Encounter Type Care Provider Facility Start: 01-17-2025 End: 01-17-2025 Telephone encounter Kimberly Dowd APRN.VOLLEYBALL PLAYER Work Phone: Pulmonary Medicine Comment on above: Medication Update (a nd ) Start: 01-17-2025 End: 01-17-2025 Patient encounter procedure Lew Bird APRN.CNP Work Phone: [facility] Comment on above: Ringworm Start: 01-17-2025 End: 01-17-2025 ambulatory [facility] Facility:[facility] Start: 01-17-2025 End: 01-17-2025 Subsequent hospital visit by physician [facility] Work Phone: Radiology Comment on above: Asthma-COPD overlap syndrome (HCC) [J44.89] Start: 01-17-2025 End: 01-17-2025 Office outpatient visit 40 minutes Kimberly Dowd APRN.JEAN Work Phone: Pulmonary Medicine Comment on above: Asthma-COPD overlap syndrome (HCC) (Primary Dx); Shortness of breath; Productive cough; Former cigarette smoker; Lung nodules; Gastroesophageal reflux disease, unspecified whether esophagitis present Start: 01-17-2025 End: 01-17-2025 ambulatory [facility] Facility:[facility] Start: 01-03-2025 End: 01-03-2025 Patient encounter procedure Lew Bird APRN.CNP Work Phone: [facility] Comment on above: Ringworm (Primary Dx ); Rash Start: 01-03-2025 End: 01-03-2025 [facility] Start: 12-29-2024 End: 12-29-2024 Patient encounter procedure Lew Bird APRN.VOLLEYBALL PLAYER Work Phone: [facility] Comment on above: Rash (Primary Dx) Start: 12-29-2024 End: 12-29-2024 ambulatory [facility] Facility:[facility] Start: 12-29-2024 End: 12-29-2024 Telephone encounter Andry Jean-Baptiste MD Work Phone: [facility] Comment on above: Patient Update Start: 12-21-2024 End: 12-21-2024 Telephone encounter Jun [facility] Start: 12-19-2024 End: 12-19-2024 Refill Andry Jean-Baptiste MD Work Phone: [facility] Comment on above: Refill Request Start: 12-13-2024 ambulatory UNKNOWN PROVIDER Facili ty:[facility] Start: 12-13-2024 End: 12-13-2024 Patient encounter procedure Lew Bird APRN.CNP Work Phone: [facility] Comment on above: Contact dermatitis, unspecified contact dermatitis type, unspecified trigger (Primary Dx); Screening for depression; Encounter for screening examination for other mental health and behavioral disorders; Asthma-COPD overlap syndrome (HCC); Coronary artery disease involving [place] coronary artery of [place] heart without angina pectoris; Intractable chronic migraine without aura and without status migrainosus; GERD without esophagitis; Mixed hyperlipidemia; Elevated fasting blood sugar; Injury of head, initial encounter Start: 12-13-2024 End: 12-13-2024 ambulatory ANDRY JEAN-BAPTISTE Facility:[facility] Start: 11-17-2024 End: 11-17-2024 ambulatory Bridget Jo RN Work Phone: [employer] Comment on above: Patient Outreach (Ch art review review per request of payor ) Start: 11-17-2024 End: 11-17-2024 Chart abstracting Andry Jean-Baptiste MD Work Phone: [facility] Comment on above: Abstract ([facility] ED vis it, without admission) Start: 11-16-2024 End: 11-18-2024 ambulatory Andry Jean-Baptiste MD Work Phone: [facility] [place] Comment on above: 2nd ER visit Start: 2024 End: 2024 Emergency department patient visit Dr. Andry Jean-Baptiste MD Work Phone: -Emergency Department Work Phone: Start: 11-14-2024 End: 2024 ambulatory Andry Jean-Baptiste MD Work Phone: [facility] Comment on above: ER visit Start: 11-13-2024 End: 11-13-2024 Emergency department patient visit Dr. Andry Jean-Baptiste MD Work Phone: -Emergency Department Work Phone: Start: 09-09-2024 End: 09-09-2024 Telephone encounter Jun Milena [facility]ER[facility] Start: 09-09-2024 End: 09-09-2024 Patient encounter procedure Teri Gross MD Work Phone: Pulmonary Medicine Comment on above: Asthma with COPD wit h exacerbation (HCC) (Primary Dx); Acute bronchitis, unspecified organism; Former cigarette smoker Start: 09-09-2024 End: 09-09-2024 ambulatory [facility] Facility:[facility] Start: 09-08-2024 End: 09-08-2024 Orders Only Teri Gross MD Work Phone: Pulmonary Medicine Start: 09-07-2024 End: 09-09-2024 Telephone encounter Teri Gross MD Work Phone: Pulmonary Medicine Comment on above: Patient Update Start: 08-18-2024 End: 08-18-2024 Telephone encounter Andry Jean-Baptiste MD Work Phone: [facility] Comment on above: scratch left lower a rm Start: 08-18-2024 End: 08-18-2024 ambulatory [facility] Facility:[facility] Start: 08-18-2024 End: 08-18-2024 Office outpatient visit 15 minutes Jaimie Jett [employer] 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 Work Phone: [facility] Comment on above: Contusion of right u pper arm, initial encounter (Primary Dx) Start: 07-20-2024 End: 07-20-2024 ambulatory ANDRY JERILYN Facility:[facility] Start: 07-15-2024 End: 07-15-2024 Follow-up encounter Andry Jean-Baptiste MD Work Phone: [facility] Start: 07-14-2024 End: 07-14-2024 Patient encounter procedure Teri Gross MD Work Phone: Pulmonary Medicine Comment on above: Asthma-COPD overlap syndrome (HCC) (Primary Dx); Lung nodules; Former cigarette smoker; Granulomatous disease (HCC) Start: 07-14-2024 End: 07-14-2024 ambulatory ANDRY JEAN-BAPTISTE Facility:[facility] Start: 07-10-2024 End: 07-10-2024 Emergency department patient visit Andry Jean-Baptiste Facility:[facility] Start: 07-05-2024 End: 07-05-2024 ambulatory ANDRY JEAN-BAPTISTE Facility:[facility] Start: 07-05-2024 End: 07-05-2024 Office outpatient visit 15 minutes Jaimie Jett APRN.CNP Work Phone: [facility] Comment on above: Intractable chronic migraine without aura and without status migrainosus (Primary Dx); Asthma-COPD overlap syndrome (HCC); Coronary artery disease involving nisqually coronary artery of nisqually heart without angina pectoris; Pulmonary emphysema, unspecified emphysema type (HCC); INDIA (obstructive sleep apnea); GERD without esophagitis; Migraine without aura, intractable, without status migrainosus Start: 07-04-2024 End: 07-04-2024 Follow-up encounter Lew Bird APRN.CNP Work Phone: [facility] Start: 07-01-2024 End: 07-01-2024 Follow-up encounter Lew Bird APRN.CNP Work Phone: [facility] Start: 07-01-2024 End: 07-01-2024 Telephone encounter Andry Jean-Baptiste MD Work Phone: [facility] Comment on above: Future Appointment Start: 07-01-2024 End: 07-01-2024 Subsequent hospital visit by physician [facility] Work Phone: Radiology Comment on above: Acute cough [R05.1] Start: 07-01-2024 End: 07-01-2024 Patient encounter procedure Lew Bird APRN.CNP Work Phone: [facility] Comment on above: Acute cough (Primary Dx); Wheezing Start: 07-01-2024 End: 07-01-2024 ambulatory ANDRY JEAN-BAPTISTE Facility:[facility] Start: 06-21-2024 End: 06-21-2024 ambulatory ANDRY JEAN-BAPTISTE Facility:[facility] Start: 06-21-2024 End: 06-21-2024 Office outpatient visit 15 minutes Jaimie Jett APRN.VOLLEYBALL PLAYER Work Phone: [facility] Comment on above: Pneumonia of right u pper lobe due to infectious organism (Primary Dx) Start: 06-17-2024 End: 06-17-2024 ambulatory ANDRY JEAN-BAPTISTE Facility:[facility] Start: 06-17-2024 End: 06-17-2024 Subsequent hospital visit by physician [facility] Work Phone: Cat Scan Comment on above: Lung nodules [R91.8] Start: 06-15-2024 End: 06-15-2024 Patient encounter procedure Andry Jean-Baptiste MD Work Phone: [facility] Comment on above: Encounter for Medica re annual wellness exam (Primary Dx); Mixed hyperlipidemia; Elevated fasting blood sugar; GERD without esophagitis; Coronary artery disease involving nisqually coronary artery of nisqually heart without angina pectoris; Bilateral carotid artery disease, unspecified type (HCC); Intractable chronic migraine without aura and without status migrainosus; Pulmonary emphysema, unspecified emphysema type (HCC); Iron deficiency anemia secondary to inadequate dietary iron intake; Primary insomnia; Vitamin D deficiency; Low zinc level; Advance directive discussed with patient; Need for vaccination Start: 06-15-2024 End: 06-15-2024 ambulatory ANDRY JEAN-BAPTISTE Facility:[facility] Start: 05-24-2024 End: 05-24-2024 Refill Irma Perez PA-C Work Phone: [facility] Comment on above: Refill Request Start: 05-23-2024 End: 05-23-2024 ambulatory ANDRY JEAN-BAPTISTE Facility:[facility] Start: 05-19-2024 End: 05-19-2024 Patient encounter procedure Srinath Summers Work Phone: Podiatry Comment on above: Plantar fasciitis (P rimary Dx) Start: 05-19-2024 End: 05-19-2024 ambulatory Andry Jean-Baptiste MD Work Phone: [facility] Comment on above: Script Start: 05-19-2024 End: 05-19-2024 Subsequent hospital visit by physician [facility] Alex Work Phone: Radiology Comment on above: Pain [R52] Start: 05-17-2024 End: 05-17-2024 Telephone encounter Teri Gross MD Work Phone: Pulmonary Medicine Comment on above: Orders Start: 05-12-2024 End: 05-13-2024 Refill Lew Bird APRN.VOLLEYBALL PLAYER Work Phone: [facility] Comment on above: Refill Request Start: 04-06-2024 End: 04-06-2024 ambulatory ANDRY JEAN-BAPTISTE Facility:[facility] Start: 04-06-2024 End: 04-06-2024 Patient encounter procedure Andry Jean-Baptiste MD Work Phone: [facility] Comment on above: Nocturnal leg cramps (Primary Dx); Encounter for immunization Start: 04-04-2024 End: 04-04-2024 ambulatory Elo Simpson sponge press operatorNews 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 Editor Management Comment on above: ACM SANDEE RN ( No action needed.) Start: 03-30-2024 End: 03-30-2024 Chart abstracting Andry Jean-Baptiste MD Work Phone: [facility] Comment on above: ER Discharge Summary Start: 03-29-2024 End: 03-29-2024 [facility] Start: 02-15-2024 End: 02-15-2024 Refill Lew Bird APRN.VOLLEYBALL PLAYER Work Phone: [facility] Comment on above: Refill Request Start: 01-18-2024 End: 01-19-2024 Refill Teri Gross MD Work Phone: Pulmonary Medicine Comment on above: Refill Request Start: 01-14-2024 End: 01-14-2024 Refill Irma Perez PA-C Work Phone: [facility] Comment on above: Refill Request Start: 12-08-2023 End: 12-08-2023 Patient encounter procedure Irma Perez PA-C Work Phone: [facility] Comment on above: Mixed hyperlipidemia (Primary Dx); Screening for depression; Encounter for screening examination for other mental health and behavioral disorders; Coronary artery disease involving nisqually coronary artery of nisqually heart without angina pectoris; INDIA (obstructive sleep apnea); Pulmonary emphysema, unspecified emphysema type (HCC); Iron deficiency anemia secondary to inadequate dietary iron intake; Elevated fasting blood sugar; Primary insomnia; Chronic post-traumatic headache, not intractable; Vitamin D deficiency; History of gastric bypass; Medication management; Malabsorption syndrome; GERD without esophagitis; Bilateral carotid artery disease, unspecified type (HCC); Prostate disorder Start: 10-22-2023 Chart abstracting Andry lima MD Work Phone: [facility] Comment on above: Ext / [facility] Start: 10-14-2023 End: 10-14-2023 Patient encounter procedure Maria De Jesus Oswald PA-C Work Phone: Pulmonary Medicine Comment on above: Asthma-COPD overlap syndrome (HCC) (Primary Dx); Lung nodules; Granulomatous disease (HCC); Former cigarette smoker Start: 10-02-2023 End: 10-02-2023 Patient encounter procedure Andry Jean-Baptiste MD Work Phone: [facility] Comment on above: COPD exacerbation (H CC) (Primary Dx); Pulmonary emphysema, unspecified emphysema type (HCC); Angular cheilitis Start: 09-21-2023 Telephone encounter Lew santiago APRN.CNP Work Phone: [facility] Comment on above: Results Start: 09-20-2023 Evaluation and management of inpatient [facility] Work Phone: Start: 09-18-2023 End: 09-18-2023 Subsequent hospital visit by physician [facility] Work Phone: Radiology Comment on above: URI, acute [J06.9] Start: 09-18-2023 End: 09-18-2023 Patient encounter procedure Lew Bird APRN.CNP Work Phone: [facility] Comment on above: URI, acute (Primary Dx); Chronic obstructive pulmonary disease, unspecified COPD type (HCC) Start: 09-08-2023 Refill Teri Gross MD Work Phone: Pulmonary Medicine Comment on above: Refill Request Start: 08-16-2023 Refill Irma Moreno on PA-C Work Phone: [facility] Comment on above: Refill Request Start: 07-23-2023 End: 07-23-2023 Patient encounter procedure Teri Gross MD Work Phone: Pulmonary Medicine Comment on above: Asthma-COPD overlap syndrome (HCC) (Primary Dx); Lung nodules; Granulomatous disease (HCC); Former cigarette smoker Start: 06-22-2023 Telephone encounter Teri Gross MD Work Phone: Pulmonary Medicine Comment on above: Results Start: 06-17-2023 Telephone encounter Teri Gross MD Work Phone: [place] [facility] Comment on above: Results (Chest CT) Results Start: 06-16-2023 End: 06-16-2023 Subsequent hospital visit by physician [facility] ([facility]) Work Phone: Cat Scan Start: 06-10-2023 End: 06-10-2023 ambulatory [facility] Work Phone: Start: 06-10-2023 End: 06-10-2023 Patient encounter procedure [facility] Work Phone: Start: 06-08-[address] (I-Stat) Work Phone: [facility] Work Phone: Start: 05-18-2023 End: 05-18-2023 Emergency department patient visit [facility] Work Phone: Start: 04-30-2023 Telephone encounter Andry Jean-Baptiste MD Work Phone: [facility] Comment on above: Results Start: 04-28-2023 End: 04-28-2023 Subsequent hospital visit by physician [facility] Work Phone: Radiology Comment on above: URI, acute [J06.9] Start: 04-28-2023 End: 04-28-2023 Patient encounter procedure Andry Jean-Baptiste MD Work Phone: [facility] Comment on above: URI, acute (Primary Dx); SOB (shortness of breath); Epigastric pain; Left-sided chest pain Start: 04-16-2023 End: 04-16-2023 ambulatory Pulm Lab [facility] Work Phone: [facility]ULM [facility] Comment on above: Spirometry Start: 04-16-2023 End: 04-16-2023 Patient encounter procedure Pulm Lab [facility] Work Phone: [facility] Comment on above: Asthma-COPD overlap syndrome (Primary Dx); Former cigarette smoker; Ground glass opacity present on imaging of lung Start: 04-14-2023 End: 04-14-2023 Patient encounter procedure Lew Bird APRN.VOLLEYBALL PLAYER Work Phone: [facility] Comment on above: Chronic obstructive pulmonary disease, unspecified COPD type (HCC) (Primary Dx); Encounter for immunization Start: 03-20-2023 Telephone encounter Andry Jean-Baptiste MD Work Phone: [facility] Comment on above: Patient Update Start: 03-20-2023 End: 03-20-2023 [facility] Start: 03-13-2023 ambulatory Andry galvez MD Work Phone: [facility] Comment on above: re: Covid Start: 03-13-2023 Telephone encounter Carisa Chavez-C Work Phone: [facility] Comment on above: Erroneous encounter- disregard Start: 03-12-2023 End: 03-12-2023 Subsequent hospital visit by physician [facility] Work Phone: Radiology Comment on above: Acute cough [R05.1] Start: 02-20-2023 End: 02-20-2023 Patient encounter procedure Lew Knoble AS400 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 Work Phone: [facility] Comment on above: Community acquired p neumonia, unspecified laterality (Primary Dx); Pulmonary emphysema, unspecified emphysema type (HCC) Start: 02-16-2023 End: 02-16-2023 Patient encounter procedure Eulalia Russell AS400 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 Work Phone: [facility] Comment on above: Pneumonia of right l arun due to infectious organism, unspecified part of lung (Primary Dx) Start: 02-09-2023 End: 02-09-2023 Emergency department patient visit [facility] Work Phone: Start: 01-27-2023 Refill Andry galvez MD Work Phone: [facility] Comment on above: Refill Request Start: 10-04-2022 End: 10-04-[address] Andry Jean-Baptiste Work Phone: [facility] Work Phone: Start: 10-04-2022 End: 10-04-[address] Andry Jean-Baptiste Work Phone: [facility]Labor[facility], Specimen Start: 09-24-2022 End: 09-24-[address] Andry Jean-Baptiste Work Phone: [facility] Start: 09-23-2022 End: 09-23-[address] Andry Jean-Baptiste Work Phone: [facility] Start: 09-17-2022 End: 09-17-2022 Office outpatient visit 15 minutes Gloria Chavez AS400 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 Work Phone: [facility] Comment on above: Eczema, unspecified type (Primary Dx) Start: 09-05-2022 End: 09-05-2022 Patient encounter procedure Irma Perez PA-C Work Phone: [facility] Comment on above: Mixed hyperlipidemia (Primary Dx); Coronary artery disease involving nisqually coronary artery of nisqually heart without angina pectoris; Pulmonary emphysema, unspecified [...] surgery center Dr. Andry Jean-Baptiste Work Phone: [facility] Start: 07-14-2022 End: 07-14-2022 Patient encounter procedure Lew Bird APRN.CNP Work Phone: [facility] Comment on above: Oral polyp (Primary Dx) Start: 06-27-2022 End: 06-27-[address] Andry Jean-Baptiste Work Phone: [facility] Start: 06-23-2022 Telephone encounter Andry Jean-Baptiste MD Work Phone: [facility] Comment on above: Consult Start: 05-26-2022 End: 05-26-2022 ambulatory Ronak Stauffer DO Work Phone: Hematology/Oncology Comment on above: Iron deficiency anem ia secondary to inadequate dietary iron intake (Primary Dx) Start: 05-26-2022 End: 05-26-2022 Patient encounter procedure Ronak Satuffer DO Work Phone: [facility] Start: 05-23-2022 Orders Only Ronak Reed Work Phone: Hematology/Oncology Comment on above: Iron deficiency anem ia secondary to inadequate dietary iron intake (Primary Dx); Malabsorption syndrome Start: 05-16-2022 Orders Only Ronak Reed Work Phone: Hematology/Oncology Comment on above: Iron deficiency anem ia secondary to inadequate dietary iron intake (Primary Dx) Start: 05-15-2022 End: 05-15-2022 Patient encounter procedure Andry Jean-Baptiste MD Work Phone: [facility] Comment on above: Bronchitis (Primary Dx); Advance directive discussed with patient; Pulmonary emphysema, unspecified emphysema type (HCC) Start: 05-02-2022 ambulatory Andry galvez MD Work Phone: [facility] Comment on above: Test result Start: 05-01-2022 End: 05-01-2022 Patient encounter procedure Radha Bishop APRN.VOLLEYBALL PLAYER Work Phone: [facility] Comment on above: URI, acute [...] encounter procedure Andry Jean-Baptiste MD Work Phone: [facility] Comment on above: Medicare annual well ness visit, initial (Primary Dx); Mixed hyperlipidemia; Coronary artery disease involving nisqually coronary artery of nisqually heart without angina pectoris; Intractable chronic migraine [...] 01-27-2022 Refill Andry galvez MD Work Phone: [facility] Comment on above: Refill Request Start: 11-14-2021 ambulatory Angelica davis APRN.VOLLEYBALL PLAYER Work Phone: Hematology/Oncology Comment on above: Iron Start: 11-13-2021 End: 11-13-2021 ambulatory Angelica Zurita APRN.VOLLEYBALL PLAYER Work Phone: Hematology/Oncology Comment on above: Iron deficiency anem ia secondary to inadequate dietary iron intake (Primary Dx); Malabsorption syndrome Start: 11-13-2021 End: 11-13-2021 Patient encounter procedure [place] APRN.CNP Work Phone: [facility] Start: 10-29-2021 Chart abstracting Andry lima MD Work Phone: [facility] Comment on above: Heart Catheterizatio n Follow Up Start: 10-28-2021 Telephone encounter Andry Jean-Baptiste MD Work Phone: [facility] Comment on above: Results Start: 10-24-2021 Telephone encounter Brigitte Bishop MA [facility] Comment on above: Appointment Start: 10-24-2021 End: 10-24-2021 Subsequent hospital visit by physician [facility] Work Phone: Radiology Comment on above: Left-sided chest wal l pain [R07.89] Start: 10-24-2021 End: 10-24-2021 Patient encounter procedure Andry Jean-Baptiste MD Work Phone: [facility] Comment on above: Coronary artery dise ase involving nisqually coronary artery of nisqually heart without angina pectoris (Primary Dx); Exertional chest pain; Left hand pain; Left-sided chest wall pain Start: 10-17-2021 ambulatory Andry galvez MD Work Phone: [facility] Start: 10-17-2021 Patient encounter procedure Andry Jean-Baptiste MD Work Phone: [facility] Comment on above: Upcoming appointment Start: 09-04-2021 Telephone encounter Andry Jean-Baptiste MD Work Phone: [facility] Comment on above: Results Start: 09-03-2021 Get Medical Advice Andry Jean-Baptiste MD Work Phone: [facility] Comment on above: Medication refill Start: 03-04-2021 Patient encounter procedure Andry Jean-Baptiste MD Work Phone: [facility] Work Phone: Start: 01-01-2017 End: 04-16-[address] [facility] Procedures Date Procedure Procedure Detail Performing Clinician Start: 01-17-2025 Radiologic exam ches t 2 views Kimberly Dowd APRN.VOLLEYBALL PLAYER Work Phone: Start: 12-13-2024 Adult depression scr eening assessment Lew Bird APRN.VOLLEYBALL PLAYER Work Phone: Start: 12-13-2024 Lipid 1996 panel - S deshaun or Plasma Andry Jean-Baptiste MD Work Phone: Start: [address] Andry Jean-Baptiste MD Work Phone: Start: 07-01-2024 Radiologic exam ches t 2 views Lew Bird APRN.VOLLEYBALL PLAYER Work Phone: Start: 05-23-2024 Lipid 1996 panel - S deshaun or Plasma Irma Perez PA-C Work Phone: Start: 12-08-2023 Adult depression scr eening assessment Irma Perez PA-C Work Phone: Start: 11-27-2023 Lipid 1996 panel - S deshaun or Plasma Irma Perez PA-C Work Phone: Start: 09-20-2023 Plain chest X-ray Start: 09-18-2023 Radiologic exam ches t 2 views Lew Bird APRN.VOLLEYBALL PLAYER Work Phone: Start: 09-18-2023 Ecg routine ecg [...] HIGH DOSE, QUADRIVALENT (FLUZONE HIGH-DOSE) Lew Bird AS400 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 Work Phone: Start: 03-20-2023 Plain chest X-ray Start: 03-12-2023 Radiologic exam ches t 2 views Domingo Erik AS400 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 Work Phone: Start: 03-09-2023 Lipid 1996 panel - S deshaun or Plasma Carisa [...] 05-01-2022 COVID WITH FLUA+B, ROUTINE Radha James AS400 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 Work Phone: Start: 03-07-2022 INFLUENZA SEASONAL QUADRIVALENT HIGH DOSE AGE 65+ Andry Jean-Baptiste MD Work Phone: Start: 11-10-2021 Adult depression scr eening assessment Angelica Zurita AS400 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 Work Phone: Start: 10-24-2021 Radex ribs uni [...] Detail Author Start: 06-11-2033 Urine microalbumin profile DTa P,Tdap,Td Vaccine (4 - Td or Tdap) [facility] Start: 06-10-2033 Urine microalbumin profile DTa P,Tdap,Td Vaccine (3 - Td or Tdap) [facility] Start: 10-23-2030 Colonoscopy COLONOSCOPY [facility] Start: 10-23-2030 COLORECTAL CANCER SCREENING COLORECTAL CANCER SCREENING [facility] Start: 10-23-2030 Screening for malign ant neoplasm of colon [facility] Start: 12-13-2029 Lipid panel Lipid Screening [facility] Start: 05-23-2029 Lipid panel Lipid Screening [facility] Start: 11-26-2028 Lipid panel Lipid Screening [facility] Start: 03-09-2028 Lipid 1996 panel - S deshaun or Plasma Lipid Screening [facility] Start: 03-09-2028 Lipid panel Lipid Screening [facility] Start: 03-09-2028 Prostate Cancer Scre ening Discussion Prostate Cancer Screening Discussion [facility] Start: 03-09-2028 Prostate specific an tigen measurement Prostate Cancer Screening Discussion [facility] Start: 12-14-2027 Diabetes Screening Diabetes Screenin g [facility] Start: 08-30-2027 Lipid 1996 panel - S deshaun or Plasma Lipid Screening [facility] Start: 08-30-2027 LIPID SCREEN LIPID SCREEN [facility] Start: 05-23-2027 Diabetes Screening Diabetes Screenin g [facility] Start: 03-05-2027 LIPID SCREEN LIPID SCREEN [facility] Start: 03-05-2027 PROSTATE CANCER SCRE ENING DISCUSSION PROSTATE CANCER SCREENING DISCUSSION [facility] Start: 11-26-2026 Diabetes Screening Diabetes Screenin g [facility] Start: 08-28-2026 LIPID SCREEN LIPID SCREEN [facility] Start: 03-09-2026 Diabetes Screening Diabetes Screenin g [facility] Start: 03-01-2026 PROSTATE CANCER SCRE ENING DISCUSSION PROSTATE CANCER SCREENING DISCUSSION [facility] Start: 01-17-2026 Annual PCP Team Derrick Man dewayne Disease Visit Annual PCP Team Chronic Disease Visit [facility] Start: 01-03-2026 Annual PCP Team Derrick Man dewayne Disease Visit Annual PCP Team Chronic Disease Visit [facility] Start: 12-29-2025 Annual PCP Team Derrick Man dewayne Disease Visit Annual PCP Team Chronic Disease Visit [facility] Start: 12-13-2025 Annual PCP Team Derrick Man dewayne Disease Visit Annual PCP Team Chronic Disease Visit [facility] Start: 12-13-2025 Anxiety Screening Anxiety Screening [facility] Start: 12-13-2025 Depression Screening Depression Scre ening [facility] Start: 12-13-2025 Hepatitis B surface antibody level LDL Cholesterol [facility] Start: 08-29-2025 DIABETES SCREEN DIABETES SCREEN [facility] Start: 08-29-2025 Diabetes Screening Diabetes Screenin g [facility] Start: 08-18-2025 Annual PCP Team Derrick Man dewayne Disease Visit Annual PCP Team Chronic Disease Visit [facility] Start: 07-21-2025 End: 07-21-2025 Patient encounter procedure 07/21/2025 8:40 AM EDT Appointment Cat Scan [address] [place], [place] [id number] CHEST CT [facility] Comment on above: CHEST CT Start: 07-05-2025 Annual PCP Team Derrick Man dewayne Disease Visit Annual PCP Team Chronic Disease Visit [facility] Start: 07-01-2025 Annual PCP Team Derrick Man dewayne Disease Visit Annual PCP Team Chronic Disease Visit [facility] Start: 06-21-2025 Annual PCP Team Derrick Man dewayne Disease Visit Annual PCP Team Chronic Disease Visit [facility] Start: 06-19-2025 End: 08-13-2025 CT Chest WO contrast CT CHEST WO IVCON Radiology Routine Lung nodules Former cigarette smoker Expected: 06/19/2025, Expires: 08/13/2025 [facility] Work Phone: Comment on above: Expected: 06/19/2025 , Expires: 08/13/2025 Start: 06-15-2025 Annual PCP Team Derrick Man dewayne Disease Visit Annual PCP Team Chronic Disease Visit [facility] Start: 06-15-2025 End: 06-15-2025 Patient encounter procedure 06/15/2025 9:20 AM EST Office Visit [facility] [address] [place] [address] Andry Jean-Baptiste MD [address] [place] [address] physical [facility] Comment on above: physical Start: 05-23-2025 Hepatitis B surface antibody level LDL Cholesterol [facility] Start: 04-19-2025 End: 04-19-2025 Patient encounter procedure 04/19/2025 9:30 AM EST Office Visit Pulmonary Medicine [address] [place] [address] Kimberly Dowd APRN.VOLLEYBALL PLAYER [address] [place] [address] 3 month f/u Pulmonary Medicine Comment on above: 3 month f/u Start: 04-06-2025 Annual PCP Team Derrick Man dewayne Disease Visit Annual PCP Team Chronic Disease Visit [facility] Start: 03-05-2025 DIABETES SCREEN DIABETES SCREEN [facility] Start: 01-27-2025 End: 01-27-2025 Patient encounter procedure 01/27/2025 8:00 AM EDT Office Visit Cardiology [address] [place], [place] [id number] Shortness of breath [R06.02] Cardiology Comment on above: Shortness of breath [R06.02] Start: 01-17-2025 End: 01-17-2025 Patient encounter procedure 01/17/2025 9:40 AM EDT Office Visit Family [facility] [address] [place], [place] [id number] Lew Bird, CATIA.VOLLEYBALL PLAYER [address] [place] [address] [phone] follow up- rash [facility] Comment on above: follow up- rash Start: 01-17-2025 End: 01-17-2025 Patient encounter procedure Pulmonary Medicine Comment on above: 6 MTH F/U COPD Start: 01-09-2025 Influenza vaccination Influenza Vacc ine (#1) [facility] Start: 01-03-2025 End: 01-03-2025 Patient encounter procedure 01/03/2025 11:40 AM EDT Office Visit [facility] [address] [place], [place] [address] Lew Bird, AS400 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 [address] [place] [address] [phone] rash follow up [facility] Comment on above: rash follow up Start: 12-13-2024 End: 12-13-2024 Patient encounter procedure 12/13/2024 9:00 AM EDT Office Visit [facility] [address], [place] [id number] Lew Bird, AS[employer] 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 [address] [place] [address] [phone] 6 month follow up [facility] Comment on above: 6 month follow up Start: 12-07-2024 Annual PCP Team Derrick Man dewayne Disease Visit Annual PCP Team Chronic Disease Visit [facility] Start: 12-07-2024 Anxiety Screening Anxiety Screening [facility] Start: 12-07-2024 Depression Screening Depression Scre ening [facility] Start: 12-02-2024 End: 03-03-2025 Hemoglobin A1c in Blood HEMOGLOBIN A1C Lab Routine Elevated fasting blood sugar Expected: 12/02/2024, Expires: 03/03/2025 [facility] Comment on above: Expected: 12/02/2024 , Expires: 03/03/2025 Start: 12-02-2024 End: 03-03-2025 LIPID PANEL, NONFASTING LIPID PANEL, NONFASTING Lab Routine Mixed hyperlipidemia Coronary artery disease involving nisqually coronary artery of nisqually heart without angina pectoris Bilateral carotid artery disease, unspecified type (HCC) Expected: 12/02/2024, Expires: 03/03/2025 [facility] Comment on above: Expected: 12/02/2024 , Expires: 03/03/2025 Start: 11-26-2024 Hepatitis B surface antibody level LDL Cholesterol [facility] Start: 2024 [facility] Start: 2024 Bacteria identified in Blood by Culture Blood Culture [facility] Start: 2024 [facility] Start: 11-13-2024 [facility] Start: 11-07-2024 Influenza vaccination Influenza Vacc ine (#1) [facility] Comment on above: Postponed from 01/09 (Declined at this time) Start: 10-01-2024 Annual PCP Team Derrick Man dewayne Disease Visit Annual PCP Team Chronic Disease Visit [facility] Start: 09-17-2024 Annual PCP Team Derrick Man dewayne Disease Visit Annual PCP Team Chronic Disease Visit [facility] Start: 09-09-2024 End: 09-09-2024 Patient encounter procedure 09/09/2024 10:30 AM EDT Office Visit Pulmonary Medicine [address] [place], [place] [id number] Teri Gross MD [address] [place], [place] [id number] COPD flare up [facility]monary [facility] Comment on above: COPD flare up Start: 08-28-2024 DIABETES SCREEN DIABETES SCREEN [facility] Start: 07-20-2024 End: 07-20-2024 Patient encounter procedure 07/20/2024 9:00 AM EDT Office Visit [facility] [address] [place] [address] Bilateral carotid artery disease, unspecified type (HCC) [I77.9] [facility] Comment on above: Bilateral carotid ar amy disease, unspecified type (HCC) [I77.9] Start: 07-14-2024 End: 07-14-2024 Patient encounter procedure 07/14/2024 10:00 AM EST Office Visit Pulmonary Medicine [address] [place] [address] Teri Gross MD [address] [place] [address] 9 MTH F/U LUNG NODULES [facility] Comment on above: 9 MTH F/U LUNG NODUL ES Start: 07-13-2024 End: 10-12-2024 Zinc [Mass/volume] in Serum or Plasma ZINC BLD Lab Routine Low zinc level Expected: 07/13/2024, Expires: 10/12/2024 [facility] Comment on above: Expected: 07/13/2024 , Expires: 10/12/2024 Start: 07-05-2024 End: 07-05-2024 Patient encounter procedure [facility] Comment on above: 2 wk follow up; james [facility]chell Start: 06-23-2024 End: 06-23-2024 Patient encounter procedure 06/23/2024 3:30 PM EST Office Visit [facility] [address] [place] [address] Bilateral carotid artery disease, unspecified type (HCC) [I77.9] [facility] Comment on above: Bilateral carotid ar amy disease, unspecified type (HCC) [I77.9] Start: 06-20-2024 End: 06-16-2025 CT Chest WO contrast CT CHEST WO IVCON Radiology Routine Lung nodules Expected: 06/20/2024, Expires: 06/16/2025 [facility] Work Phone: Comment on above: Expected: 06/20/2024 , Expires: 06/16/2025 Start: 06-17-2024 End: 06-17-2024 Patient encounter procedure 06/17/2024 9:00 AM EST Appointment Cat Scan [address] [place] [address] CT CHEST Cat Scan Comment on above: CT CHEST Start: 06-15-2024 End: 06-15-2024 Patient encounter procedure 06/15/2024 9:40 AM EST Office Visit [facility] [address] [place] [address] Andry Jean-Baptiste MD [address] [place] [address] medicare wellness [facility] Comment on above: medicare wellness Start: 06-13-2024 End: 11-12-2024 CT Chest WO contrast CT CHEST WO IVCON Radiology Routine Lung nodules Expected: 06/13/2024, Expires: 11/12/2024 [facility] Work Phone: Comment on above: Expected: 06/13/2024 , Expires: 11/12/2024 Start: 06-08-2024 Annual PCP Team Derrick Man dewayne Disease Visit Annual PCP Team Chronic Disease Visit [facility] Start: 06-08-2024 Shingrix Vaccine (1 of 2) Lindsay grix Vaccine (1 of 2) [facility] Comment on above: Postponed from 11/15 (Insurance Coverage) Start: 05-23-2024 End: 08-22-2024 25-hydroxyvitamin D3 [Mass/volume] in Serum or Plasma VITAMIN D 25 HYDROXY Lab Routine History of gastric bypass Malabsorption syndrome Expected: 05/23/2024, Expires: 08/22/2024 [facility] Comment on above: Expected: 05/23/2024 , Expires: 08/22/2024 Start: 05-23-2024 End: 08-22-2024 CBC W Auto Differential panel - Blood COMPLETE BLOOD COUNT AND DIFFERENTIAL Lab Routine Elevated fasting blood sugar Expected: 05/23/2024, Expires: 08/22/2024 [facility] Comment on above: Expected: 05/23/2024 , Expires: 08/22/2024 Start: 05-23-2024 End: 08-22-2024 Cobalamin (Vitamin B12) [Mass/volume] in Serum or Plasma VITAMIN B12 Lab Routine History of gastric bypass Malabsorption syndrome Expected: 05/23/2024, Expires: 08/22/2024 [facility] Comment on above: Expected: 05/23/2024 , Expires: 08/22/2024 Start: 05-23-2024 End: 08-22-2024 Comprehensive metabolic 2000 panel - Serum or Plasma COMPREHENSIVE METABOLIC PANEL Lab Routine Elevated fasting blood sugar Expected: 05/23/2024, Expires: 08/22/2024 [facility] Comment on above: Expected: 05/23/2024 , Expires: 08/22/2024 Start: 05-23-2024 End: 08-22-2024 Ferritin [Mass/volume] in Serum or Plasma FERRITIN Lab Routine History of gastric bypass Malabsorption syndrome Expected: 05/23/2024, Expires: 08/22/2024 [facility] Comment on above: Expected: 05/23/2024 , Expires: 08/22/2024 Start: 05-23-2024 End: 08-22-2024 Folate [Mass/volume] in Serum or Plasma FOLATE, SERUM Lab Routine History of gastric bypass Malabsorption syndrome Expected: 05/23/2024, Expires: 08/22/2024 [facility] Comment on above: Expected: 05/23/2024 , Expires: 08/22/2024 Start: 05-23-2024 End: 08-22-2024 Hemoglobin A1c in Blood HEMOGLOBIN A1C Lab Routine Elevated fasting blood sugar Expected: 05/23/2024, Expires: 08/22/2024 [facility] Work Phone: Comment on above: Expected: 05/23/2024 , Expires: 08/22/2024 Start: 05-23-2024 End: 08-22-2024 Iron and Iron binding capacity panel - Serum or Plasma IRON AND TIBC Lab Routine History of gastric bypass Malabsorption syndrome Expected: 05/23/2024, Expires: 08/22/2024 [facility] Comment on above: Expected: 05/23/2024 , Expires: 08/22/2024 Start: 05-23-2024 End: 08-22-2024 LIPID PANEL, NONFASTING LIPID PANEL, NONFASTING Lab Routine Mixed hyperlipidemia Expected: 05/23/2024, Expires: 08/22/2024 [facility] Comment on above: Expected: 05/23/2024 , Expires: 08/22/2024 Start: 05-23-2024 End: 08-22-2024 Prostate specific Ag [Mass/volume] in Serum or Plasma PROSTATE-SPECIFIC ANTIGEN DIAGNOSTIC Lab Routine Prostate disorder Expected: 05/23/2024, Expires: 08/22/2024 [facility] Comment on above: Expected: 05/23/2024 , Expires: 08/22/2024 Start: 05-23-2024 End: 08-22-2024 Retinol [Mass/volume] in Serum or Plasma VITAMIN A/RETINOL Lab Routine History of gastric bypass Malabsorption syndrome Expected: 05/23/2024, Expires: 08/22/2024 [facility] Comment on above: Expected: 05/23/2024 , Expires: 08/22/2024 Start: 05-23-2024 End: 08-22-2024 Urinalysis complete panel - Urine URINALYSIS, WITH MICROSCOPIC Lab Routine Elevated fasting blood sugar Expected: 05/23/2024, Expires: 08/22/2024 [facility] Comment on above: Expected: 05/23/2024 , Expires: 08/22/2024 Start: 05-23-2024 End: 08-22-2024 Zinc [Mass/volume] in Serum or Plasma ZINC BLD Lab Routine History of gastric bypass Malabsorption syndrome Expected: 05/23/2024, Expires: 08/22/2024 [facility] Comment on above: Expected: 05/23/2024 , Expires: 08/22/2024 Start: 05-23-2024 End: 05-23-2024 ambulatory 05/23/2024 8:00 AM EST Results Only [facility] [address] [place] [address] [facility] Yang [facility] Start: 05-19-2024 End: 05-19-2024 Patient encounter procedure Radiology Comment on above: LEFT FOOT LEFT FOOT PAIN Start: 05-11-2024 Advance Directive Discussion Advance Directive Discussion [facility] Start: 04-28-2024 Annual PCP Team Derrick Man dewayne Disease Visit Annual PCP Team Chronic Disease Visit [facility] Start: 04-14-2024 Annual PCP Team Derrick Man dewayne Disease Visit Annual PCP Team Chronic Disease Visit [facility] Start: 04-14-2024 Covid-19 Vaccine ( season) Covid-19 Vaccine () [facility] Comment on above: Postponed from 01/09 (Declined at this time) Start: 04-06-2024 End: 04-06-2024 Patient encounter procedure 04/06/2024 11:20 AM EST Office Visit [facility] [address] [place], [place] [address] Andry Jean-Baptiste MD [address] [facility], [place] [id number] [facility] f/u muscle cramps both legs [facility] Comment on above: [facility] f/u muscl e cramps both legs Start: 03-09-2024 Hepatitis B surface antibody level LDL Cholesterol [facility] Start: 02-21-2024 Annual PCP Team Derrick Man dewayne Disease Visit Annual PCP Team Chronic Disease Visit [facility] Start: 01-27-2024 End: 01-27-2024 Patient encounter procedure 01/27/2024 2:00 PM EDT Office Visit Pulmonary Medicine [address] [place] [address] Maria De Jesus Oswald [facility] [address] [place] [address] 6 MTH F/U [facility] Medicine Comment on above: 6 MTH F/U Start: 01-10-2024 Covid-19 Vaccine ( season) Covid-19 Vaccine ( season) [facility] Start: 01-10-2024 Covid-19 Vaccine ( season) Covid-19 Vaccine ( season) [facility] Start: 01-10-2024 Influenza vaccination Influenza Vacc ine (#1) [facility] Start: 12-07-2023 End: 12-07-2023 Patient encounter procedure 12/07/2023 8:20 AM EDT Office Visit [facility] [place] [address] [place] [address] Irma Perez PA-C [address] [place] [address] 6 month follow up [facility] Comment on above: 6 month follow up Start: 11-27-2023 End: 11-27-2023 ambulatory 11/27/2023 8:30 AM EDT Results Only [facility] [address] [place] [address] [facility] Start: 09-20-2023 Taking nasal swab [facility] Start: 09-20-2023 Verification routine [facility] Start: 09-20-2023 Hospital admission, emergency, from emergency room, medical nature [facility] Start: 09-20-2023 Admission procedure [facility] Start: 09-20-2023 Bacteria identified in Blood by Culture Blood Culture [facility] Start: 09-20-2023 Microscopic observat ion [Identifier] in Unspecified specimen by Gram stain [facility] Start: 09-20-2023 Respiratory Culture Respiratory Cult ure [facility] Start: 09-20-2023 Blood culture [facility] Start: 09-20-2023 [facility] Start: 09-18-2023 ANNUAL PCP TEAM MICA PLATE LAYER DEWAYNE DISEASE VISIT ANNUAL PCP TEAM CHRONIC DISEASE VISIT [facility] Start: 09-06-2023 ANNUAL PCP TEAM MICA PLATE LAYER DEWAYNE DISEASE VISIT ANNUAL PCP TEAM CHRONIC DISEASE VISIT [facility] Start: 08-30-2023 Hepatitis B surface antibody level LDL CHOLESTEROL [facility] Start: 08-21-2023 Shingrix Vaccine (2 of 2) Lindsay grix Vaccine (2 of 2) [facility] Start: 07-15-2023 ANNUAL PCP TEAM MICA PLATE LAYER DEWAYNE DISEASE VISIT ANNUAL PCP TEAM CHRONIC DISEASE VISIT [facility] Start: 06-15-2023 End: 05-15-2024 Ct thorax w/o contrast material CT CHEST WO IVCON Radiology Routine Expected: 06/15/2023, Expires: 05/15/2024 [facility] Work Phone: Comment on above: Expected: 06/15/2023 , Expires: 05/15/2024 Start: 05-18-2023 [facility] Start: 05-15-2023 ANNUAL PCP TEAM MICA PLATE LAYER DEWAYNE DISEASE VISIT ANNUAL PCP TEAM CHRONIC DISEASE VISIT [facility] Start: 05-11-2023 Behavioral Health Screening Behavioral Health Screening [facility] Start: 04-16-2023 End: 07-16-[address] [facility] Work Phone: Comment on above: Expected: 04/16/2023 , Expires: 07/16/2023 Start: 04-16-2023 End: 07-16-[address] [facility] Work Phone: Comment on above: Expected: 04/16/2023 , Expires: 07/16/2023 Start: 03-20-2023 [facility] Start: 03-20-2023 [facility] Start: 03-07-2023 End: 05-07-2023 25-hydroxyvitamin D3 [Mass/volume] in Serum or Plasma VITAMIN D 25 HYDROXY Lab Routine History of gastric bypass Medication management Expected: 03/07/2023, Expires: 05/07/2023 [facility] Work Phone: Comment on above: Expected: 03/07/2023 , Expires: 05/07/2023 Start: 03-07-2023 ANNUAL PCP TEAM MICA PLATE LAYER DEWAYNE DISEASE VISIT ANNUAL PCP TEAM CHRONIC DISEASE VISIT [facility] Start: 03-07-2023 End: 05-07-2023 CBC W Auto Differential panel - Blood CBC + DIFF Lab Routine Elevated fasting blood sugar Expected: 03/07/2023, Expires: 05/07/2023 [facility] Work Phone: Comment on above: Expected: 03/07/2023 , Expires: 05/07/2023 Start: 03-07-2023 End: 05-07-2023 Cobalamin (Vitamin B12) [Mass/volume] in Serum or Plasma VITAMIN B12 BLOOD Lab Routine History of gastric bypass Medication management Expected: 03/07/2023, Expires: 05/07/2023 [facility] Work Phone: Comment on above: Expected: 03/07/2023 , Expires: 05/07/2023 Start: 03-07-2023 End: 05-07-2023 Comprehensive metabolic 2000 panel - Serum or Plasma COMP METABOLIC PANEL Lab Routine Mixed hyperlipidemia GERD without esophagitis Elevated fasting blood sugar Expected: 03/07/2023, Expires: 05/07/2023 [facility] Work Phone: Comment on above: Expected: 03/07/2023 , Expires: 05/07/2023 Start: 03-07-2023 End: 05-07-2023 Folate [Mass/volume] in Serum or Plasma FOLATE SERUM Lab Routine History of gastric bypass Medication management Expected: 03/07/2023, Expires: 05/07/2023 [facility] Work Phone: Comment on above: Expected: 03/07/2023 , Expires: 05/07/2023 Start: 03-07-2023 End: 05-07-2023 Hemoglobin A1c in Blood HGB A1C Lab Routine Elevated fasting blood sugar Expected: 03/07/2023, Expires: 05/07/2023 [facility] Work Phone: Comment on above: Expected: 03/07/2023 , Expires: 05/07/2023 Start: 03-07-2023 End: 05-07-2023 Iron and Iron binding capacity panel - Serum or Plasma IRON + TIBC Lab Routine History of gastric bypass Medication management Expected: 03/07/2023, Expires: 05/07/2023 [facility] Work Phone: Comment on above: Expected: 03/07/2023 , Expires: 05/07/2023 Start: 03-07-2023 End: 05-07-2023 LIPID PANEL, NONFASTING LIPID PANEL, NONFASTING Lab Routine Mixed hyperlipidemia Expected: 03/07/2023, Expires: 05/07/2023 [facility] Work Phone: Comment on above: Expected: 03/07/2023 , Expires: 05/07/2023 Start: 03-07-2023 End: 05-07-2023 Magnesium [Mass/volume] in Serum or Plasma MAGNESIUM BLD Lab Routine History of gastric bypass Medication management Expected: 03/07/2023, Expires: 05/07/2023 [facility] Work Phone: Comment on above: Expected: 03/07/2023 , Expires: 05/07/2023 Start: 03-07-2023 End: 05-07-2023 Prostate specific Ag [Mass/volume] in Serum or Plasma PSA/PROSTSPECAG DIAG Lab Routine Prostate disorder Expected: 03/07/2023, Expires: 05/07/2023 [facility] Work Phone: Comment on above: Expected: 03/07/2023 , Expires: 05/07/2023 Start: 03-07-2023 End: 05-07-2023 Retinol [Mass/volume] in Serum or Plasma VITAMIN A/RETINOL Lab Routine History of gastric bypass Medication management Expected: 03/07/2023, Expires: 05/07/2023 [facility] Work Phone: Comment on above: Expected: 03/07/2023 , Expires: 05/07/2023 Start: 03-07-2023 SHINGRIX VACCINE (1 of 2) LINDSAY GRIX VACCINE (1 of 2) [facility] Comment on above: Postponed from 11/15 (Insurance Coverage) Start: 03-07-2023 End: 05-07-2023 Urinalysis complete panel - Urine URINALYSIS, WITH MICROSCOPIC Lab Routine Elevated fasting blood sugar Expected: 03/07/2023, Expires: 05/07/2023 [facility] Work Phone: Comment on above: Expected: 03/07/2023 , Expires: 05/07/2023 Start: 03-07-2023 End: 05-07-2023 Zinc [Mass/volume] in Serum or Plasma ZINC BLD Lab Routine History of gastric bypass Medication management Expected: 03/07/2023, Expires: 05/07/2023 [facility] Work Phone: Comment on above: Expected: 03/07/2023 , Expires: 05/07/2023 Start: 03-05-2023 Hepatitis B surface antibody level LDL CHOLESTEROL [facility] Start: 02-09-2023 [facility] Start: 01-12-2023 Urine microalbumin profile [facility] Start: 01-09-2023 Covid-19 Vaccine () Covid-19 Vaccine () [facility] Start: 01-09-2023 Influenza vaccination Influenza Vacc ine (#1) [facility] Start: 11-10-2022 Adult depression scr eening assessment DEPRESSION SCREENING [facility] Start: 10-24-2022 ANNUAL PCP TEAM MICA PLATE LAYER DEWAYNE DISEASE VISIT ANNUAL PCP TEAM CHRONIC DISEASE VISIT [facility] Start: 09-03-2022 ANNUAL PCP TEAM MICA PLATE LAYER DEWAYNE DISEASE VISIT ANNUAL PCP TEAM CHRONIC DISEASE VISIT [facility] Start: 09-02-2022 Egd flexible foreign body removal EGD REMOVE FOREIGN BODY [facility] Start: 09-02-2022 Egd insert guide wir e dilator passage esophagus EGD GUIDE WIRE INSERTION [facility] Start: 09-02-2022 Egd transoral biopsy single/multiple EGD BIOPSY SINGLE/MULTIPLE [facility] Start: 09-02-2022 Patient discharge [facility] Start: 08-28-2022 Hepatitis B surface antibody level LDL CHOLESTEROL [facility] Start: 08-22-2022 End: 10-22-2022 Hemoglobin A1c in Blood HGB A1C Lab Routine Elevated fasting blood sugar Expected: 08/22/2022, Expires: 10/22/2022 [facility] Work Phone: Comment on above: Expected: 08/22/2022 , Expires: 10/22/2022 Start: 08-22-2022 End: 10-22-2022 Hepatic function 2000 panel - Serum or Plasma HEPATIC FUNCTION PNL Lab Routine Coronary artery disease involving n[place] coronary artery of n[place]ally heart without angina pectoris Mixed hyperlipidemia Expected: 08/22/2022, Expires: 10/22/2022 [facility] Work Phone: Comment on above: Expected: 08/22/2022 , Expires: 10/22/2022 Start: 08-22-2022 End: 10-22-2022 LIPID PANEL, NONFASTING LIPID PANEL, NONFASTING Lab Routine Coronary artery disease involving nisqually coronary artery of nisqually heart without angina pectoris Mixed hyperlipidemia Bilateral carotid artery disease, unspecified type (HCC) Expected: 08/22/2022, Expires: 10/22/2022 [facility] Work Phone: Comment on above: Expected: 08/22/2022 , Expires: 10/22/2022 Start: 07-19-2022 Covid-19 Vaccine (5 - Moderna series) Covid-19 Vaccine (5 - Moderna series) [facility] Start: 05-26-2022 End: 07-26-2022 CBC W Auto Differential panel - Blood CBC + DIFF Lab STAT Iron deficiency anemia secondary to inadequate dietary iron intake Malabsorption syndrome Expected: 05/26/2022, Expires: 07/26/2022 [facility] Work Phone: Comment on above: Expected: 05/26/2022 , Expires: 07/26/2022 Start: 05-26-2022 End: 07-26-2022 Ferritin [Mass/volume] in Serum or Plasma FERRITIN BLD Lab Routine Iron deficiency anemia secondary to inadequate dietary iron intake Malabsorption syndrome Expected: 05/26/2022, Expires: 07/26/2022 [facility] Work Phone: Comment on above: Expected: 05/26/2022 , Expires: 07/26/2022 Start: 05-26-2022 End: 07-26-2022 Iron and Iron binding capacity panel - Serum or Plasma IRON + TIBC Lab Routine Iron deficiency anemia secondary to inadequate dietary iron intake Malabsorption syndrome Expected: 05/26/2022, Expires: 07/26/2022 [facility] Work Phone: Comment on above: Expected: 05/26/2022 , Expires: 07/26/2022 Start: 05-19-2022 End: 07-19-2022 CBC W Auto Differential panel - Blood CBC + DIFF Lab STAT Iron deficiency anemia secondary to inadequate dietary iron intake Expected: 05/19/2022, Expires: 07/19/2022 [facility] Work Phone: Comment on above: Expected: 05/19/2022 , Expires: 07/19/2022 Start: 05-19-2022 End: 07-19-2022 Ferritin [Mass/volume] in Serum or Plasma FERRITIN BLD Lab Routine Iron deficiency anemia secondary to inadequate dietary iron intake Expected: 05/19/2022, Expires: 07/19/2022 [facility] Work Phone: Comment on above: Expected: 05/19/2022 , Expires: 07/19/2022 Start: 05-19-2022 End: 07-19-2022 Iron and Iron binding capacity panel - Serum or Plasma IRON + TIBC Lab Routine Iron deficiency anemia secondary to inadequate dietary iron intake Expected: 05/19/2022, Expires: 07/19/2022 [facility] Work Phone: Comment on above: Expected: 05/19/2022 , Expires: 07/19/2022 Start: 05-11-2022 DEPRESSION ASSESSMENT DEPRESSION ASS ESSMENT [facility] Start: 01-09-2022 Influenza vaccination INFLUENZA (#1) [facility] Start: 09-25-2021 FECAL OCCULT BLOOD FECAL OCCULT BLOO D [facility] Start: 09-25-2021 Screening for malign ant neoplasm of colon Fecal Occult Blood [facility] Start: 09-01-2021 COVID-19 VACCINE (4 - Booster for Moderna series) COVID-19 VACCINE (4 - Booster for Moderna series) [facility] Start: 08-27-2021 Adult depression scr eening assessment DEPRESSION SCREENING [facility] Start: 06-28-2021 COVID-19 VACCINE (4 - Booster for Moderna series) COVID-19 VACCINE (4 - Booster for Moderna series) [facility] Start: 10-31-2016 End: 10-31-2016 Appointment Appointment [facility] Work Phone: Start: 08-20-2016 End: 09-08-2016 *BMP *BMP [facility] Work Phone: Start: 08-20-2016 End: 09-08-2016 aPTT *PTT-Partial Thromboplastin Time [facility] Work Phone: Start: 08-20-2016 End: 09-08-2016 aPTT Coag time (PPP) *PTT-Partial Thromboplastin Time [facility] Work Phone: Start: 08-20-2016 End: 09-08-2016 CBC W Auto Differential panel - Blood *CBC without Diff [facility] Work Phone: Start: 08-20-2016 End: 09-09-2016 Chest x-ray X-Ray, Chest, PA & Lateral [facility] Work Phone: Start: 08-20-2016 End: 09-08-2016 Coagulation factor induced.INR assay in platelet poor plasma *PT/INR [facility] Work Phone: Start: 08-20-2016 End: 10-10-2016 Electrocardiogram, complete EKG (In office) [facility] Work Phone: Start: 08-20-2016 End: 10-10-2016 Follow Up Appt 2 months Follow Up Appt 2 months [facility] Work Phone: Start: 08-20-2016 End: 09-04-2016 Left Heart Cath Left Heart Cath [facility] Work Phone: Start: 08-20-2016 End: 10-10-2016 MMM MMM [facility] Work Phone: Start: 2014 RSV Vaccine (1 - 1-d ose 60+ series) RSV Vaccine (1 - 1-dose 60+ series) [facility] Start: 2004 SHINGRIX VACCINE (1 of 2) LINDSAY GRIX VACCINE (1 of 2) [facility] Start: 11-16-1999 COLOGUARD (FIT-DNA) COLOGUARD (FIT-D NA) [facility] Start: 11-16-[address] COLONOGRAPHY [facility] Start: 11-16-1999 Screening for malign ant neoplasm of colon [facility] Start: 11-16-1999 SIGMOIDOSCOPY SIGMOIDOSCOPY [facility] Start: 1984 Zoledronic acid therapy ALPHA- 1 ANTITRYPSIN DEFICIENCY SCREENING [facility] [facility] B[facility] identified in Sputum by Respiratory culture [facility] COVID & INFLUENZA A/ B & RSV NAAT, ROUTINE COVID & INFLUENZA A/B & RSV NAAT, ROUTINE Microbiology Routine URI, acute 09/18/2023 3:35 PM EDT [facility] COVID & INFLUENZA A/ B & RSV PCR, ROUTINE COVID & INFLUENZA A/B & RSV PCR, ROUTINE Microbiology Routine Acute cough Wheezing Ordered: 07/01/2024 [facility] Work Phone: Comment on above: Ordered: 07/01/2024 CT Chest WO contrast CT CHEST WO IVCON Radiology Routine Lung nodules 06/17/2024 9:[address] [facility] Work Phone: End: 10-24-2022 ECG COMPLETE ECG COMPLETE ECG Routine Coronary artery disease involving nisqually coronary artery of nisqually heart without angina pectoris Exertional chest pain 1 Occurrences starting 10/24/2021 until 10/24/2022 [facility] Work Phone: Comment on above: 1 Occurrences starti ng 10/24/2021 until 10/24/2022 ECG COMPLETE [facility] Comment on above: Ordered: 09/18/2023 End: 01-17-2026 Echocardiography ECHO Cardiology Routine Shortness of breath 1 Occurrences starting 01/17/2025 until 01/17/2026 [facility] Work Phone: Comment on above: 1 Occurrences starti ng 01/17/2025 until 01/17/2026 Ferritin [Mass/volum e] in Serum or Plasma [facility] Iron [Mass/mass] in Unspecified specimen [facility] Iron and Iron bindin g capacity panel - Serum or Plasma [facility] Iron saturation [Mas s Fraction] in Serum or Plasma [facility] Patient Education [facility] Work Phone: Patient referral [facility] Work Phone: End: 04-15-2023 PVR ANK PRESS [facility] PVR ANK PRESS [facility] Vascular Lab Routine Ingrowing toenail Diminished pulses in lower extremity 1 Occurrences starting 04/15/2022 until 04/15/2023 [facility] Work Phone: Comment on above: 1 Occurrences starti ng 04/15/2022 until 04/15/2023 Respiratory pathogen s DNA and RNA panel - Respiratory specimen by VALARIE with probe detection [facility] End: 05-27-2024 US ABD RIGHT UPPER QUADRANT US ABD RIGHT UPPER QUADRANT Radiology Routine Epigastric pain 1 Occurrences starting 04/28/2023 until 05/27/2024 [facility] Work Phone: Comment on above: 1 Occurrences starti ng 04/28/2023 until 05/27/2024 End: 06-15-2025 US Carotid arteries - bilateral US CAROTID ARTERIES [facility] Vascular Lab Routine Bilateral carotid artery disease, unspecified type (HCC) 1 Occurrences starting 06/15/2024 until 06/15/2025 [facility] Work Phone: Comment on above: 1 Occurrences starti ng 06/15/2024 until 06/15/2025 End: 10-17-2024 XR Chest PA and Lateral XR CHEST 2V FRONTAL/LAT Radiology Routine URI, acute 1 Occurrences starting 09/18/2023 until 10/17/2024 [facility] Work Phone: Comment on above: 1 Occurrences starti ng 09/18/2023 until 10/17/2024 XR Chest PA and Lateral XR CHEST 2V FRONTAL/LAT Radiology Routine URI, acute 09/18/2023 4:04 PM EDT [facility] XR Foot - left AP an d Lateral and oblique XR FOOT GENERAL 3V AP/LAT/OBL LEFT Radiology Routine Pain 05/19/2024 10:[address] [facility] Work Phone: [facility] Immunizations Immunization Date Immunization Notes Care Provider [facility] 06-15-2024 influenza, high dose seasonal, preservative-free Andry Jean-Baptiste MD Work Phone: [facility] 06-15-2024 influenza virus vaccine, unspecified formulation Andry Jean-Baptiste MD Work Phone: [facility] 06-26-2023 zoster vaccine recombinant Teri Gross MD Work Phone: [facility] 06-11-2023 tetanus toxoid, redu no diphtheria toxoid, and acellular pertussis vaccine, adsorbed Irma Perez PA-C Work Phone: [facility] 06-10-2023 respiratory syncytia l virus (RSV) vaccine, adjuvanted (AREXVY) Ct (I-Stat) Work Phone: [facility] 06-10-2023 tetanus toxoid, redu no diphtheria toxoid, and acellular pertussis vaccine, adsorbed Ct (I-Stat) Work Phone: [facility] 04-14-2023 influenza (HD-IIV4) vaccine, age 65+ yr, high dose, quadrivalent, PF (FLUZONE HIGH-DOSE) Lew Bird APRN.[employer]LEYBALL PLAYER Work Phone: [facility] 04-14-2023 influenza virus vaccine, unspecified formulation Irma Perez PA-C Work Phone: [facility] 03-21-2022 COVID-19 booster vaccine, age 12+ yr, bivalent (MODERNA) Srinath Summers Work Phone: [facility] 03-07-2022 influenza, high-dose , quadrivalent vaccine (FLUZONE HIGH DOSE QUADRIVALENT) Andry Jean-Baptiste MD Work Phone: [facility] 03-07-2022 influenza virus vaccine, unspecified formulation Andry Jean-Baptiste MD Work Phone: [facility] 05-03-2021 COVID-19 vaccine, booster dose (MODERNA) Andry Jean-Baptiste MD Work Phone: [facility] 03-04-2021 influenza, high-dose , quadrivalent vaccine (FLUZONE HIGH DOSE QUADRIVALENT) Andry Jean-Baptiste MD Work Phone: [facility] 08-08-2020 COVID-19 vaccine, fu ll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 nystatin-triamcinolone (MYCOLOG II) cream Apply to affected area four times daily for 7 days. cholecalciferol, Vitamin D3, (VITAMIN D3) 1,250 mcg (50,000 unit) cap capsule Take 1 capsule by mouth one time a week. budesonide-formoterol (SYMBICORT) 160-4.5 mcg/actuation inhaler Inhale 2 Puffs as instructed two times a day. ipratropium-albuterol (DUONEB) 0.5 mg-3 mg(2.5 mg base)/3 mL nebu Inhale 3 mL as instructed every 4 hours as needed for wheezing/shortness of breath. pravastatin (PRAVACHOL) 40 mg tablet Take (more content not included)... [facility] 01-03-2025 History of Present illness Narrative Chief Complaint Patient presents with: Rash HPI Tara Arellano is a 69 year old male who presents here today for Above Complaints. Patient presents for follow up for rahs. Has been using mycolog cream with no improvement. Past medical history, appointments, medications, allergies reviewed. [...] pain 04/18/2019 Chronic low back pain 12/14/2015 Diverticulosis of colon 06/24/2018 Elevated fasting blood [...] on File Prior to Visit Medication Sig nystatin-triamcinolone (MYCOLOG II) cream Apply to affected area four times daily for 7 days. cholecalciferol, Vitamin D3, (VITAMIN D3) 1,250 mcg (50,000 unit) cap capsule Take 1 capsule by mouth one time a week. budesonide-formoterol (SYMBICORT) 160-4.5 mcg/actuation inhaler Inhale 2 [...] mouth at bedtime as needed (muscle spasms). cyanocobalamin, vitamin B-12, (VITAMIN B-12 ORAL) Take [...] on file prior to visit. Social History SOCIAL HISTORY[1] Review of Symptoms REVIEW OF SYSTEMS SEE HPI EXAM: BP 115/56 Pulse 88 Wt 83 kg (182 lb 15.7 oz) BMI 26.83 kg/m General Appearance: Well appearing, alert, in no acute distress, well-hydrated, well nourished. Skin: Positives: Red patchy rash with raised outer edge to right abdomen. Health Maintenance List Shingrix Vaccine(2 of 2) due on 08/21/2023 Influenza Vaccine(1) due on 01/09/2025 LDL Cholesterol due on 12/13/2025 Depression Screening due on 12/13/2025 Anxiety Screening due on 12/13/2025 Annual PCP Team Chronic Disease Visit due on 12/29/2025 Diabetes Screening due on 12/14/2027 Lipid Screening due on 12/13/2029 Colorectal Cancer Screening due on 10/23/2030 DTaP,Tdap,Td Vaccine(4 - Td or Tdap) due on 06/11/2033 Abdominal Aortic Aneurysm Screening Completed Advance Directive Discussion Completed RSV Vaccine Completed Medicare Advantage Annual Wellness Visit Completed Hepatitis C Screening Discontinued Pneumococcal Vaccine: 50+ Discontinued ASSESSMENT/PLAN: 1. Ringworm - ICD9: 110.9, ICD10: B35.9 - TERBINAFINE HCL 250 MG TABLET Lew Bird APRN.CNP [1] Social History Tobacco Use Smoking status: Former Current packs/day: 0.00 Average packs/day: 2.0 packs/day for 33.0 years (66.0 ttl pk-yrs) Types: Cigarettes Start date: 08/07/1968 Quit date: 08/07/2001 Years since quittin.4 Smokeless tobacco: Never Vaping Use Vaping status: Never Used Substance Use Topics Alcohol use: No Comment: no alcohol since before 1999 Drug use: No documented in this encounter [facility] 12-29-2024 Note HNO ID: [id number] Author: LEW BIRD APRN.VOLLEYBALL PLAYER Service: ? Author Type: Nurse Practitioner Type: Progress Notes Filed: 12/29/2024 18:46 Note Text: Chief Complaint Patient presents with: Follow Up: rash HPI Tara Arellano is a 69 year old male who presents here today for Above Complaints. Patient presents for skin rash. Patient was seen on 12/13 and started on prednisone with no improvement, reports rash has actually gotten worse. Past medical history, appointments, medications, allergies reviewed. [...] pain 04/18/2019 Chronic low back pain 12/14/2015 Diverticulosis of colon 06/24/2018 Elevated fasting blood [...] capsule by mouth one time a week. budesonide-formoterol (SYMBICORT) 160-4.5 mcg/actuation inhaler Inhale 2 Puffs as instructed two times a day. ipratropium-albuterol (DUONEB) 0.5 mg-3 mg(2.5 mg base)/3 mL nebu Inhale 3 mL as instructed every 4 hours as needed for wheezing/shortness of breath. pravastatin (PRAVACHOL) 40 mg tablet Take 1 tablet by mouth once daily. om (more content not included)... [facility] 12-29-2024 History of Present illness Narrative Chief Complaint Patient presents with: Follow Up: rash HPI Tara Arellano is a 69 year old male who presents here today for Above Complaints. Patient presents for skin rash. Patient was seen on 12/13 and started on prednisone with no improvement, reports rash has actually gotten worse. Past medical history, appointments, medications, allergies reviewed. [...] pain 04/18/2019 Chronic low back pain 12/14/2015 Diverticulosis of colon 06/24/2018 Elevated fasting blood [...] capsule by mouth one time a week. budesonide-formoterol (SYMBICORT) 160-4.5 mcg/actuation inhaler Inhale 2 [...] mouth at bedtime as needed (muscle spasms). cyanocobalamin, vitamin B-12, (VITAMIN B-12 ORAL) Take [...] on file prior to visit. Social History SOCIAL HISTORY[1] Review of Symptoms REVIEW OF SYSTEMS SEE HPI EXAM: BP 124/68 Pulse 84 Wt 84 kg (185 lb 3 oz) BMI 27.15 kg/m General Appearance: Well appearing, alert, in no acute distress, well-hydrated, well nourished.. Skin: Positives: Rash: Raised red patchy rash to right lower abdomen. No drainage, warmth or swelling to abdomen. Health Maintenance List Shingrix Vaccine(2 of 2) due on 08/21/2023 Influenza Vaccine(1) due on 01/09/2025 LDL Cholesterol due on 12/13/2025 Annual PCP Team Chronic Disease Visit due on 12/13/2025 Depression Screening due on 12/13/2025 Anxiety Screening due on 12/13/2025 Diabetes Screening due on 12/14/2027 Lipid Screening due on 12/13/2029 Colorectal Cancer Screening due on 10/23/2030 DTaP,Tdap,Td Vaccine(4 - Td or Tdap) due on 06/11/2033 Abdominal Aortic Aneurysm Screening Completed Advance Directive Discussion Completed RSV Vaccine Completed Medicare Advantage Annual Wellness Visit Completed Hepatitis C Screening Discontinued Pneumococcal Vaccine: 50+ Discontinued ASSESSMENT/PLAN: 1. Rash - ICD9: 782.1, ICD10: R21 - NYSTATIN-TRIAMCINOLONE 100,000 UNIT/G-0.1 % TOPICAL CREAM Lew Bird APRN.VOLLEYBALL PLAYER [1] Social History Tobacco Use Smoking status: Former Current packs/day: 0.00 Average packs/day: 2.0 packs/day for 33.0 years (66.0 ttl pk-yrs) Types: Cigarettes Start date: 08/07/1968 Quit date: 08/07/2001 Years since quittin.4 Smokeless tobacco: Never Vaping Use Vaping status: Never Used Substance Use Topics Alcohol use: No Comment: no alcohol since before 1999 Drug use: No documented in this encounter [facility] 12-29-2024 Telephone encounter Note Pt's called in about Pt's rash. Called Pt back to get better idea of what was going on. Pt had been in on 12/13/24 for a rash and was put on a steroid. Per MAR Pt should have been done with the steroid on 12/25/24. States rash isn't any better may be worse. It has spread some and is more red. It starts above waist and goes up to ribs and goes from belly button 1/[address] to side. Pt reports it's red and raised and has some whit pencil tip bumps on it. He denies any blister like areas, open areas, or oozing. Pt reports intermittent dull pain of 4/10. He states it has been itching and he used the triamcinolone cream Dr Carrera prescribed him on it twice. Pt scheduled with Lew Bird NP today at 640 pm. Suellen Chavis RN [facility] 12-29-2024 Miscellaneous Notes Pt's called in about Pt's rash. Called Pt back to get better idea of what was going on. Pt had been in on 12/13/24 for a rash and was put on a steroid. Per MAR Pt should have been done with the steroid on 12/25/24. States rash isn't any better may be worse. It has spread some and is more red. It starts above waist and goes up to ribs and goes from belly button 1/[address] to side. Pt reports it's red and raised and has some whit pencil tip bumps on it. He denies any blister like areas, open areas, or oozing. Pt reports intermittent dull pain of 4/10. He states it has been itching and he used the triamcinolone cream Dr Carrera prescribed him on it twice. Pt scheduled with Lew Bird NP today at 640 pm. Suellen Chavis RN documented in this encounter [facility] 08-13-2025 Telephone encounter Note SW spoke with patient spouse and she notes that she still has [employer] PAP forms for patient Trelegy. Will work on filling forms out and getting them back to to work with Dr. Gross on completing to send to [employer]. [facility] 12-21-2024 Miscellaneous Notes SW spoke with patient spouse and she notes that she still has [employer] PAP forms for patient Trelegy. Will work on filling forms out and getting them back to to work with Dr. Gross on completing to send to [employer]. documented in this encounter [facility] 12-19-2024 Telephone encounter Note The following approved medication requests have been transmitted electronically. Requested Prescriptions Signed Prescriptions Disp Refills cholecalciferol, Vitamin D3, (VITAMIN D3) 1,250 mcg (50,000 unit) cap capsule 12 capsule 3 Sig: Take 1 capsule by mouth one time a week. Authorizing Provider: ANDRY JEAN-BAPTISTE MD [facility] 12-19-2024 Miscellaneous Notes The following approved medication requests [...] The last office visit in the department: 12/13/24 Does the patient have a future office visit with this provider/department: Yes 06/15/25 Requested Prescriptions Pending Prescriptions Disp Refills cholecalciferol, Vitamin D3, (VITAMIN D3) 1,250 mcg (50,000 unit) cap capsule 12 capsule 3 Sig: Take 1 capsule by mouth one time a week. Paula Cardenas LPN December 19, 2024 5:13 PM documented in this encounter [facility] 12-19-2024 Telephone encounter Note Prescription Refill Information The patient has been identified by name and date of : Yes Caregiver verified no other encounters exist for this prescription request: Yes Caregiver confirmed with patient/requestor that no other refills are due, in the near future, with this provider at this time: Yes The last office visit in the department: 12/13/24 Does the patient have a future office visit with this provider/department: Yes 06/15/25 Requested Prescriptions Pending Prescriptions Disp Refills cholecalciferol, Vitamin D3, (VITAMIN D3) 1,250 mcg (50,000 unit) cap capsule 12 capsule 3 Sig: Take 1 capsule by mouth one time a week. Paula Cardenas LPN December 19, 2024 5:13 PM [facility] 12-14-2024 Note HNO ID: [id number] Author: YOLANDE ELIZABETH CPhT Service: ? Author Type: Product Specialist Type: Progress Notes Filed: 12/14/2024 07:50 Note Text: Patient is identified through a medication adherence outreach initiative based on pharmacy claims data from: [employer] Medication Adherence Category: Statins First Review Attribution Status: Correct attribution Medication(s) Pravastatin 40 mg Medication Status per portal/Epic Reconcile Dispense: Filled late - Greater than 7 days after next fill date Date Filled (MM/DD): 12/10/24 Day Supply: 90 Medication Status per Profile Review: No issues per profile review Patient/provider appropriate for outreach? No Reason patient/provider not appropriate for outreach:Patient filled on time / no adherence concerns to be addressed Yolande Elizabeth CPhT [facility] Team [facility] 12-14-2024 Note Patient Outreach ( POHE) TARA ARELLANO ([id number]) 1955 Date Time Provider Department 12/14/24 ANDRY JEAN-BAPTISTE During your visit today, we recorded the following information about you: Yolande Elizabeth CPhT 12/14/2024 7:50 AM Signed Patient is identified through a medication adherence outreach initiative based on pharmacy claims data from: [employer] Medication Adherence Category: Statins First Review Attribution Status: Correct attribution Medication(s) Pravastatin 40 mg Medication Status per portal/Epic Reconcile Dispense: Filled late - Greater than 7 days after next fill date Date Filled (MM/DD): 12/10/24 Day Supply: 90 Medication Status per Profile Review: No issues per profile review Patient/provider appropriate for outreach? No Reason patient/provider not appropriate for outreach:Patient filled on time / no adherence concerns to be addressed Yoalnde Elizabeth CPhT [facility] Allergies As of Date: 12/14/2024 Noted Allergy Reaction BEES 07/06/2018 4 - [...] - Swelling Comments: Localized swelling Date Reviewed: 12/13/2024 Reviewed by: Radha Ramires MA - Fully Assessed Reason for Visit: Allied Health Visit [5] Cmt: Medication adherence outreach Prescriptions as of 12/14/2024 - predniSONE (DELTASONE) 10 mg tablet Take 4 tablets by mouth once daily for 3 days, THEN 3 tablets once daily for 3 days, THEN 2 tablets once daily for 3 days, THEN 1 tablet once daily for 3 days. - budesonide-formoterol (SYMBICORT) 160-4.5 mcg/actuation inhaler Inhale 2 Puffs as instructed two times a day. - ipratropium-albuterol (DUONEB) 0.5 mg-3 mg(2.5 mg base)/3 mL nebu Inhale 3 mL as instructed every 4 hours as needed for wheezing/shortness of breath. - pravastatin (PRAVACHOL) 40 mg tablet Take [...] as needed for wheezing/shortness of breath. - baclofen 10 mg tablet Take 1 [...] once daily. Problem List As Of Date 12/14/2024 Noted Resolved Hemorrhage of rectum and anus [...] 03/07/2022 Nocturnal leg cramps [G47.62] 04/06/2024 Encounter Statu (more content not included)... [facility] 12-13-2024 Note HNO ID: [id number] Author: ALEX GOTTLIEB RT(R) Service: Radiology Author Type: Technologist Type: Progress Notes Filed: 12/13/2024 12:37 Note Text: Radiology Service Progress Note PATIENT NAME: Tara Arellano DATE OF SERVICE: December 13, 2024 TIME: 12:30 PM PATIENT IDENTITY VERIFICATION COMPLETED USING TWO (2) IDENTIFIERS: Name and Date of confirmed by patient verbally and Name and Date of confirmed by identification band. FALL SCREENING: Has the patient had 2 falls in the last year or 1 fall with injury or currently using an Ambulatory Assistive Device (Walker, Cane, Wheelchair, Crutches, etc.)? No PATIENT GENDER DATA: Assigned male at PATIENT RELEVANT IMPLANT DATA REVIEWED: Not Applicable PATIENT PRESENTS WITH AN IMPLANTABLE OR ATTACHED FLIGHT TEST SHOP MECHANIC: No RADIOLOGY DEPARTMENT: CT; Exam(s) Completed: Brain PERIPHERAL IV DATA: Not applicable SIGNED BY: Alex Gottlieb RT(R) December 13, 2024 12:30 PM [facility] 12-13-2024 Note HNO ID: [id number] Author: LEW BIRD APRN.VOLLEYBALL PLAYER Service: ? Author Type: Nurse Practitioner Type: Progress Notes Filed: 12/13/2024 09:08 Note Text: Chief Complaint Patient presents with: 6 Month Exam HPI Tara Arellano is a 69 year old male who presents here today for Above Complaints.. Patient presents for routine follow up. Patient reports itchy painful rash to abdomen 3-4 months. Patient also reports he hit his head on equipment on and since then he has had some headaches and fatigue. Past medical history, appointments, medications, allergies reviewed. [...] pain 04/18/2019 Chronic low back pain 12/14/2015 Diverticulosis of colon 06/24/2018 Elevated fasting blood [...] on File Prior to Visit Medication Sig predniSONE (DELTASONE) 20 mg tablet Take two orally daily for 5 days budesonide-formoterol (SYMBICORT) 160-4.5 mcg/actuation inhaler Inhale 2 Puffs as instructed two times a day. ipratropium-albuterol (DUONEB) 0.5 mg-3 mg(2.5 mg base)/3 mL nebu Inhale 3 mL as instructed every 4 hours as needed for wheezing/shortness of breath. kgialzbetda-njbaanjgg-ypgpcmzr (TRELEGY ELLIPTA) 100-62.5 (more content not included)... [facility] 12-13-2024 History of Present illness Narrative Chief Complaint Patient presents with: 6 Month Exam HPI Tara Arellano is a 69 year old male who presents here today for Above Complaints.. Patient presents for routine follow up. Patient reports itchy painful rash to abdomen 3-4 months. Patient also reports he hit his head on equipment on and since then he has had some headaches and fatigue. Past medical history, appointments, medications, allergies reviewed. [...] pain 04/18/2019 Chronic low back pain 12/14/2015 Diverticulosis of colon 06/24/2018 Elevated fasting blood [...] on File Prior to Visit Medication Sig predniSONE (DELTASONE) 20 mg tablet Take two orally daily for 5 days budesonide-formoterol (SYMBICORT) 160-4.5 mcg/actuation inhaler Inhale 2 Puffs as instructed two times a day. ipratropium-albuterol (DUONEB) 0.5 mg-3 mg(2.5 mg base)/3 mL nebu Inhale 3 mL as instructed every 4 hours as needed for wheezing/shortness of breath. fecbfgxxxwy-chvnhajli-mrfhyyys (TRELEGY ELLIPTA) 100-62.5-25 mcg inhalation powder Inhale [...] date: [birth year]07/1969 Quit date: 08/07/2001 Years since quittin.3 Smokeless tobacco: Never Vaping Use Vaping status: Never Used Substance Use Topics Alcohol use: No Comment: no alcohol since before 1999 Drug use: No Review of Symptoms REVIEW OF SYSTEMS SEE HPI EXAM: BP 112/68 Pulse 76 Wt 82 kg (180 lb 12.4 oz) BMI 26.50 kg/m General Appearance: Well appearing, alert, in no acute distress, well-hydrated, well nourished. Skin: Positives: Rash: diffuse peeling rash to abdomen. No redness, drainage, warmth. Lungs: Lungs clear to auscultation. No wheezing, rhonchi, rales.. Heart: RRR without murmur, gallop, or rubs. No ectopy. Health Maintenance List Shingrix Vaccine(2 of 2) due on 08/21/2023 Depression Screening due on 12/07/2024 Anxiety Screening due on 12/07/2024 Influenza Vaccine(1) due on 01/09/2025 LDL Cholesterol due on 05/23/2025 Annual PCP Team Chronic Disease Visit due on 08/18/2025 Diabetes Screening due on 05/23/2027 Lipid Screening due on 05/23/2029 Colorectal Cancer Screening due on 10/23/2030 DTaP,Tdap,Td Vaccine(4 - Td or Tdap) due on 06/11/2033 Abdominal Aortic Aneurysm Screening Completed Advance Directive Discussion Completed RSV Vaccine Completed Medicare Advantage Annual Wellness Visit Completed Hepatitis C Screening Discontinued Pneumococcal Vaccine: 50+ Discontinued Data reviewed Labs ordered ASSESSMENT/PLAN: 1. Contact dermatitis, unspecified contact dermatitis type, unspecified trigger - ICD9: 692.9, ICD10: L25.9 (primary diagnosis) - Oral Steriod tx -Prednisone taper - discussed skin care of rash - follow up if symptoms persist or worsen. - PREDNISONE 10 MG TABLET 2. Screening for depression - ICD9: V79.0, ICD10: Z13.31 - DEPRESSION SCREENING 3. Encounter for screening examination for other mental health and behavioral disorders - ICD9: V79.8, ICD10: Z13.39 - ANXIETY SCREENING 4. Asthma-COPD overlap syndrome (HCC) - ICD9: 493.20, ICD10: J44.89 - Symptoms controlled - Continue current medications 5. Coronary artery disease involving [place] coronary artery of [place] heart without angina pectoris - ICD9: 414.01, ICD10: I25.10 - Follows with [facility] 6. Intractable chronic migraine without aura and without status migrainosus - ICD9: 346.71, ICD10: G43.719 -Stable 7. GERD without esophagitis - ICD9: 530.81, ICD10: K21.9 - Continue treatment with Prilosec 40 mg QD 8. Mixed hyperlipidemia - ICD9: 272.2, ICD10: E78.2 - Control undetermined, due for labs - Continue current medications - Counseled on healthy diet and regular exercise - Discussed need for and benefit of weight loss. BMI 26.50 kg/(m^2) 9. Elevated fasting blood sugar - ICD9: 790.21, ICD10: R73.01 -Hgba1c pending 10. Injury of head, initial encounter - ICD9: 959.01, ICD10: S09.90XA - [facility] Lew Bird APRN.[employer]LEY[employer]ER documented in this encounter [facility] 11-19-2024 Note HNO ID: [id number] Author: KAT TRUJILLO MA Service: ? Author Type: Package Wrapper Type: Progress Notes Filed: 11/19/2024 10:41 Note Text: POPULATION HEALTH NAVIGATION OUTREACH Action/FYI Please see ED Utilization summary below A follow-up appointment is noted to be scheduled on 12/13/24. We are forwarding this patient to Network Navigation to schedule a sooner [facility] 11/15/24 PCP follow-up appointment in 1 week Thank you 2024 MWE Due: No, completed 2.5.2024 HCC gaps: No Per 11/16/2024 MyChart message patient declines scheduling as she is feeling better. Mp outreach completed at this time. Reason for Outreach Community Monitoring/Network Navigator Pools AND Phone Line: Pool Care Gaps due: Follow-up Appointment Patient Contacted: Unable or unnecessary to reach patient: Chart Review only - patient declines scheduling Navigation Signature: Kat Elizabeth MA November 19, 2024 10:38 AM [facility] 11-18-2024 Telephone encounter Note Patient states since IV abx he's doing much better. Continues oral Keflex and states he's seeing improvement today. Does not wish to schedule. Nancy Medley MA [facility] 11-18-2024 Miscellaneous Notes Patient states since IV abx he's doing much better. Continues oral Keflex and states he's seeing improvement today. Does not wish to schedule. Nancy Medley MA Pt notified of message below. Offered to assist in scheduling or pt to contact office. Wait pt response. Gina Floyd MA Have him see [facility] for F/U next Thursday or Thursday [facility] ED visit notes below since we've note received anything to be scanned into pt's chart yet. Advise, do you want f/u now? Gina Floyd MA Narrative: 69-year-old male presents after being seen in the emergency department 2 days ago with worsening cellulitis. He denies any fevers or chills, no increased pain but states the areas burn. He was seen in the emergency department previously with areas on his right trapezius, and right shoulder/upper extremitythat were reddened. It started out smaller and has spread. He denies any nausea or vomiting or increased pain but they noticed that the redness extends further outside the lines that were drawn on his skin, especially on his neck and right trapezius. He has been taking Keflex 4 times a day. There is been noimprovement and family feels like it is getting worse. Exam Narrative: Afebrile. Vital signs noted. Nontoxic-appearing. Cardiovascular examination reveals regular rate and rhythm. Lungs are clear to auscultation bilaterally. Abdomen is soft, nontender, without guarding or rebound. Neurological examination nonfocal and nonlateralizing. Inspection of the right shoulder and neck shows increased redness slightly extending outside?line drawn around cellulitic areas. No crepitance. Full range of motion of right shoulder. Neurovascularly intact distally. Small areas on back that seem to be improving Differential diagnosis includes but not limited to inflammatory reaction versus bug bites versus worsening cellulitis and failure of outpatient treatment. Sepsis workup was pursued, however he is currently afebrile and not tachycardic. Although he has been on antibiotics blood cultures will be drawn. I reviewed his laboratory work and he has a normal white count of 5.3, hemoglobin 13.0, hematocrit 37.9 with platelet count normal 337. INR normal at 1.0, APTT normal at 35.9, electrolyte panel grossly unremarkable with glucose 112 but normal anion gap of 12. LFTs are grossly unremarkable. Lactic acid is also normal at 1.4. Currently he is not meeting any SIRS criteria, nor is he septic. I did order Zosyn and vancomycin. I had a lengthy discussion with the patient and his . I offered observation for continued IV antibiotics. I also discussed with him that this may be more of an inflammatory process than infectious cellulitis. He has only been on 2 days of antibiotics. He prefers continued outpatient treatment. As his workup here is negative, I feel that he could be discharged to follow-up and finish his course of outpatient antibiotics. He and his are agreeable to discharge. Return instructions to the emergency department were reviewed. Disposition is discharged home in stable condition documented in this encounter [facility] 11-17-2024 Note HNO ID: [id number] Author: GINA FLOYD MA Service: ? Author Type: Package Wrapper Type: Progress Notes Filed: 11/17/2024 11:52 Note Text: Pt had two recent ED visit. Most recent ED visit below. Scan on 11/17/2024 11:00 AM by Solomon Mitchell PA-C: [facility] 11-17-2024 History of Present illness Narrative Pt had two recent ED visit. Most recent ED visit below. Scan on 11/17/2024 11:00 AM by Solomon Mitchell PA-C: [facility] documented in this encounter [facility] 11-17-2024 Note HNO ID: [id number] Author: LEW DAILEY MA Service: ? Author Type: Package Wrapper Type: Progress Notes Filed: 11/17/2024 10:52 Note Text: POPULATION HEALTH NAVIGATION OUTREACH Action/FYI Patient is on CM (Community Monitoring) List : Patient due for: ACM - ED Follow up REQUESTED ACTION/FYI: Please see ED Utilization summary below A follow-up appointment is noted to be scheduled on 12/13/24. We are forwarding this patient to Network Navigation to schedule a sooner [facility] 11/15/24 PCP follow-up appointment in 1 week [facility] 11/15/24 Cellulitis 1st Attempt: Left message for patient to call back. Sent mychart message. Care gaps due: N/A Last 1 Encounter BP Readings: Date: BP: 09/09/2024 128/72 Reason for Outreach Community Monitoring/Network Navigator Pools AND Phone Line: CM Pool Care Gaps due: Follow-up Appointment Patient Contacted: Unable or unnecessary to reach patient: Left message MyChart message sent Navigation Signature: Lew Dailey MA November 17, 2024 10:47 AM [facility] 11-17-2024 History of Present illness Narrative POPULATION HEALTH NAVIGATION OUTREACH Action/FYI Patient is on CM (Community Monitoring) List : Patient due for: AC - ED Follow up REQUESTED ACTION/FYI: Please see ED Utilization summary below A follow-up appointment is noted to be scheduled on 12/13/24. We are forwarding this patient to Network Navigation to schedule a sooner [facility] 11/15/24 PCP follow-up appointment in 1 week [facility] 11/15/24 Cellulitis 1st Attempt: Left message for patient to call back. Sent mychart message. Care gaps due: N/A Last 1 Encounter BP Readings: Date: BP: 09/09/2024 128/72 Reason for Outreach Community Monitoring/Network Navigator Pools & Phone Line: CM Pool Care Gaps due: Follow-up Appointment Patient Contacted: Unable or unnecessary to reach patient: Left message MyChart message sent Navigation Signature: Lew Dailey MA November 17, 2024 10:47 AM Summary: Chart review review per request of payor ACM SANDEE RN Patient identified by name and date of . Reason for review or outreach: Chart Review Sandee Priority Emergency Department Utilization REQUESTED ACTION/FYI: Please see ED Utilization summary below A follow-up appointment is noted to be scheduled on 12/13/24. We are forwarding this patient to Network Navigation to schedule a sooner [facility] 11/15/24 PCP follow-up appointment in 1 week Thank you Exclusion Criteria Incorrect attribution Does not meet exclusion criteria Utilization in past 12 months: # Occurrences Date Last Occurrence Hospital Admission 0 N/A Hospital Observation 0 N/A ED 4-OON 11/15/24 SNF / Acute Rehab / LTAC 0 N/A ED DIAGNOSES/REASON(S) FOR ED USE: [facility] 11/15/24 Rt neck cellulitis OTHER FINDINGS/SUMMARY: Atb Keflex 4 times a day, Labs, cultures, advised F/U with PCP 1 week. Patient Attributed To: Incorrect attribution QAE Payer: Temo RODRIGUEZ Action Taken: Referrals/Routed: Population Health Navigation: Appointment. Router to [facility] [[id number]] Payor attribution list updated with changed PCP information. Contact made with patient: No, Chart review only. Signature: Bridgte PETTY,RN,[facility] News Video Editor Management Contract RN [phone] documented in this encounter [facility] 11-17-2024 Note HNO ID: [id number] Author: BRIDGET JO RN Service: ? Author Type: Registered Nurse Type: Progress Notes Filed: 11/17/2024 10:33 Note Text: Summary: Chart review review per request of payor ACM SANDEE RN Patient identified by name and date of . Reason for review or outreach: Chart Review Sandee Priority Emergency Department Utilization REQUESTED ACTION/FYI: Please see ED Utilization summary below A follow-up appointment is noted to be scheduled on 12/13/24. We are forwarding this patient to Network Navigation to schedule a sooner [facility] 11/15/24 PCP follow-up appointment in 1 week Thank you Exclusion Criteria Incorrect attribution Does not meet exclusion criteria Utilization in past 12 months: # Occurrences Date Last Occurrence Hospital Admission 0 N/A Hospital Observation 0 N/A ED 4-OON 11/15/24 SNF / Acute Rehab / LTAC 0 N/A ED DIAGNOSES/REASON(S) FOR ED USE: [facility] 11/15/24 Rt neck cellulitis OTHER FINDINGS/SUMMARY: Atb Keflex 4 times a day, Labs, cultures, advised F/U with PCP 1 week. Patient Attributed To: Incorrect attribution QAE Payer: Temo RODRIGUEZ Action Taken: Referrals/Routed: Population Health Navigation: Appointment. Router to [facility] [[id number]] Payor attribution list updated with changed PCP information. Contact made with patient: No, Chart review only. Signature: Bridget Jo MSN,RN,[facility] News Video Editor Management Contract RN [phone] [facility] 11-17-2024 Note Patient Outreach ([facility] TARA ARELLANO ([id number]) 1955 M Date Time Provider Department 11/17/24 [facility] During your visit today, we recorded the following information about you: Bridget Jo RN 11/17/2024 10:33 AM Signed [facility] SANDEE RN Patient identified by name and date of . Reason for review or outreach: Chart Review Sandee Priority Emergency Department Utilization REQUESTED ACTION/FYI: Please see ED Utilization summary below A follow-up appointment is noted to be scheduled on 12/13/24. We are forwarding this patient to Network Navigation to schedule a sooner [facility] 11/15/24 PCP follow-up appointment in 1 week Thank you Exclusion Criteria Incorrect attribution Does not meet exclusion criteria Utilization in past 12 months: # Occurrences Date Last Occurrence Hospital Admission 0 N/A Hospital Observation 0 N/A ED 4-OON 11/15/24 SNF / Acute Rehab / LTAC 0 N/A ED DIAGNOSES/REASON(S) FOR ED USE: [facility] 11/15/24 Rt neck cellulitis OTHER FINDINGS/SUMMARY: Atb Keflex 4 times a day, Labs, cultures, advised F/U with PCP 1 week. Patient Attributed To: Incorrect attribution QAE Payer: Temo RODRIGUEZ Action Taken: Referrals/Routed: Population Health Navigation: Appointment. Router to [facility] [[id number]] Payor attribution list updated with changed PCP information. Contact made with patient: No, Chart review only. Signature: Bridget PETTY,RN,[facility] News Video Editor Management Contract RN [phone] Lew Dailey MA 11/17/2024 10:52 AM Signed POPULATION HEALTH NAVIGATION OUTREACH Action/FYI Patient is on (Community Monitoring) List : Patient due for: [facility] - ED Follow up REQUESTED ACTION/FYI: Please see ED Utilization summary below A follow-up appointment is noted to be scheduled on 12/13/24. We are forwarding this patient to Network Navigation to schedule a sooner [facility] 11/15/24 PCP follow-up appointment in 1 week [facility] 11/15/24 Cellulitis 1st Attempt: Left message for patient to call back. Sent [employer] message. Care gaps due: N/A Last 1 Encounter BP Readings: Date: BP: 09/09/2024 128/72 Reason for Outreach Community Monitoring/Network Navigator Pools AND Phone Line: [facility] Care Gaps due: Follow-up Appointment Patient Contacted: Unable or unnecessary to reach patient: Left message [employer]) message sent Navigation Signature: Lew Dailey MA November 17, 2024 10:47 AM Kat Trujillo MA 11/19/2024 10:41 AM Signed POPULATION HEALTH NAVIGATION OUTREACH Action/FYI Please see ED Utilization summary below A follow-up appointment is noted to be scheduled on 12/13/24. We are forwarding this patient to Network Navigation to schedule a sooner [facility] 11/15/24 PCP follow-up appointment in 1 week Thank you 2024 MWE Due: No, completed 2.5.2024 [facility] gaps: No Per 11/16/2024 MyChart message patient declines scheduling as she is feeling better. Mp outreach completed at this time. Reason for Outreach Community Monitoring/Network Navigator Pools AND Phone Line: Pool Care Gaps due: Follow-up Appointment Patient Contacted: Unable or unnecessary to reach patient: Chart Review only - patient declines scheduling Navigation Signature: Kat Elizabeth MA November 19, 2024 10:38 AM Allergies As of Date: 11/17/2024 Noted Allergy Reaction BEES 07/06/2018 4 - [...] MD - Fully Assessed Reason for Visit: Patient Outreach [Other] Cmt: Chart review review per request of payor Prescriptions as of 11/19/2024 - predniSONE (DELTASONE) 20 mg tablet Take two orally daily for 5 days - budesonide-formoterol (SYMBICORT) 160-4.5 mcg/actuation inhaler Inhale 2 Puffs as instructed two times a day. - ipratropium-albuterol (DUONEB) 0.5 mg-3 mg(2.5 mg base)/3 mL nebu Inhale 3 mL as instructed every 4 hours as needed for wheezing/shortness of breath. - svaluomivjd-neaxypqtk-biaklzrx (TRELEGY ELLIPTA) 100-62.5-25 mcg inhalation powder Inhale 1 Puff as instructed once daily. - pravastatin (PRAVACHOL) 40 mg tablet Take 1 tablet by mouth once daily. - omeprazole (PRILOSEC) 40 mg capsule Take 1 capsule by mouth two times a day. - topiramate (TOPAMAX) 25 mg tablet Take 1 tablet by mouth daily at bedtime. - acetaminophen (TYLENOL EXTRA STRENGTH) 500 mg tab (more content not included)... [facility] 11-16-2024 Telephone encounter Note Pt notified of message below. Offered to assist in scheduling or pt to contact office. Wait pt response. Gina Floyd MA [facility] 11-16-2024 Telephone encounter Note Have him see [facility] for F/U next Thursday or Thursday [facility] 11-16-2024 Telephone encounter Note [facility] ED visit notes below since we've note received anything to be scanned into pt's chart yet. Advise, do you want f/u now? Gina Floyd MA Narrative: 69-year-old male presents after being seen in the emergency department 2 days ago with worsening cellulitis. He denies any fevers or chills, no increased pain but states the areas burn. He was seen in the emergency department previously with areas on his right trapezius, and right shoulder/upper extremitythat were reddened. It started out smaller and has spread. He denies any nausea or vomiting or increased pain but they noticed that the redness extends further outside the lines that were drawn on his skin, especially on his neck and right trapezius. He has been taking Keflex 4 times a day. There is been noimprovement and family feels like it is getting worse. Exam Narrative: Afebrile. Vital signs noted. Nontoxic-appearing. Cardiovascular examination reveals regular rate and rhythm. Lungs are clear to auscultation bilaterally. Abdomen is soft, nontender, without guarding or rebound. Neurological examination nonfocal and nonlateralizing. Inspection of the right shoulder and neck shows increased redness slightly extending outside?line drawn around cellulitic areas. No crepitance. Full range of motion of right shoulder. Neurovascularly intact distally. Small areas on back that seem to be improving Differential diagnosis includes but not limited to inflammatory reaction versus bug bites versus worsening cellulitis and failure of outpatient treatment. Sepsis workup was pursued, however he is currently afebrile and not tachycardic. Although he has been on antibiotics blood cultures will be drawn. I reviewed his laboratory work and he has a normal white count of 5.3, hemoglobin 13.0, hematocrit 37.9 with platelet count normal 337. INR normal at 1.0, APTT normal at 35.9, electrolyte panel grossly unremarkable with glucose 112 but normal anion gap of 12. LFTs are grossly unremarkable. Lactic acid is also normal at 1.4. Currently he is not meeting any SIRS criteria, nor is he septic. I did order Zosyn and vancomycin. I had a lengthy discussion with the patient and his . I offered observation for continued IV antibiotics. I also discussed with him that this may be more of an inflammatory process than infectious cellulitis. He has only been on 2 days of antibiotics. He prefers continued outpatient treatment. As his workup here is negative, I feel that he could be discharged to follow-up and finish his course of outpatient antibiotics. He and his are agreeable to discharge. Return instructions to the emergency department were reviewed. Disposition is discharged home in stable condition [facility] 2024 Discharge summary [facility] 2024 Discharge summary Note Date/Time 2024 3:54pm [facility] Medical Records Department [address] [place] [address] Emergency Department Summary 11/15/24 MR#: [id number] Acct: [id number] Name: TARA ARELLANO Rep #:[id number] : 1955 69 From: Fredo Smiley MD PCP: Dr. Andry Jean-Baptiste MD Status:REG ER Location: ED HPI History of Present Illness Chief Complaint: Cellulitis Narrative Narrative: 69-year-old male presents after being seen in the emergency department 2 days ago with worsening cellulitis. He denies any fevers or chills, no increased pain but states the areas burn. He was seen in the emergency department previously with areas on his right trapezius, and right shoulder/upper extremitythat were reddened. It started out smaller and has spread. He denies any nausea or vomiting or increased pain but they noticed that the redness extends further outside the lines that were drawn on his skin, especially on his neck and right trapezius. He has been taking Keflex 4 times a day. There is been noimprovement and family feels like it is getting worse. [facility] Medical History Respiratory failure Coronary artery disease [...] Insomnia Bilateral carotid artery disease Home Medications ?Medication ?Instructions ?Recorded ?Last Taken ?Type calcium 600 mg (as carbonate)-vit 1 ea PO DAILY vitami n 09/08/16 Unknown History D3 10 mcg (400 unit) chewable tablet (Calcium 600 with Vitamin D3) albuterol sulfate 90 mcg/actuation 2 puff inhalation Q 6H PRN Wheezing 10/24/21 Unknown History aerosol inhaler (Ventolin HFA) cholecalciferol (vitamin D3) 1,250 1,250 mcg PO QWEEK vitamin 10/24/21 Unknown History mcg (50,000 unit) tablet cyanocobalamin (vitamin B-12) 2,000 mcg PO DAILY vitam in 10/24/21 Unknown History 1,000 mcg tablet (Vitamin B-12) epinephrine 0.3 mg/0.3 mL 0.3 mg IM ONCE PRN Allergic 10/24/21 Unknown History injection, auto-injector (EpiPen) Reaction nitroglycerin 0.4 mg sublingual 0.4 mg sublingual Q5-1 5M PRN Chest 10/24/21 Unknown History tablet Pain omega-3 fatty acids 1,000 mg 1,000 mg PO DAILY supplem ent 10/24/21 Unknown History capsule omeprazole 40 mg capsule,delayed 40 mg PO BID reflux 0 10/24/21 Unknown History release coenzyme Q10 100 mg capsule (Co 100 mg PO QHS suppleme nt 10/25/21 Unknown History Q-10) iron, carbonyl 45 mg tablet 45 mg PO DAILY supplement 04/22/22 Unknown History pravastatin 80 mg tablet 40 mg PO QHS cholesterol Unknown History benzonatate 200 mg capsule 200 mg PO TID PRN PRN cough 09/20/23 Unknown History fluticasone fur. 100 mcg-umeclid 1 ea inhalation DAILY breathing 09/20/23 Unknown History 62.5 mcg-vilant 25 mcg inhalat.powder (Trelegy Ellipta) ipratropium 0.5 mg-albuterol 3 mg 3 ml inhalation Q4H PRN sob 09/20/23 Unknown History (2.5 mg base)/3 mL nebulization soln triamcinolone acetonide 0.5 % 1 applic topical BID 04/03 Unknown History topical ointment ondansetron 4 mg disintegrating 4 mg PO Q8H PRN PRN Na usea #10 tabs 03/29/24 Unknown Rx tablet Held on 11/13/24. Instructions: Pt has been DC'd albuterol sulfate 90 mcg/actuation 2 puff inhalation Q 4H PRN PRN 07/10/24 Unknown Rx aerosol inhaler (Ventolin HFA) Wheezing #1 ea prednisone 20 mg tablet 40 mg (2 x 20 mg) PO DAILY 7 days 07/10/24 Unknown Rx #14 tabs cephalexin 500 mg capsule 500 mg PO Q6 #40 CAPSULES Unknown Rx Allergy/AdvReac Type Severity Reaction Status Date / Time bee venom protein (honey bee) Allergy Intermediate Hives Verified 11/15/24 12:27 morphine Allergy Intermediate hypotension Verified 11/15/24 12:27 pneumococcal vaccine Allergy Intermediate localized Verified 11/15/24 12:27 swelling codeine Allergy Unknown Verified 11/15/24 12:27 meperidine HCl (From Demerol) Allergy Unknown Verified 11/15/24 12:27 propoxyphene HCl (From Allergy Unknown Verified 11/15/24 12:27 Darvon) propoxyphene napsylate (From Allergy Unknown Verified 11/15/24 12:27 Darvocet-N 100) atorvastatin (From Lipitor) AdvReac Intermediate leg Verified 11/15/24 12:27 weakness Family History Mother Diabetes CHF (congestive heart failure) Hypertension Colon cancer Father Cancer pancreatic Sister Colon cancer Brother COPD (chronic obstructive pulmonary disease) Diabetes Cancer prostate Surgical History History of carpal tunnel release History of gastric bypass History of back surgery (09/11/15) H/O bypass gastrojejunostomy (~2006) History of left heart catheterization (10/28/21) History of esophagogastroduodenoscopy (EGD) (~10/23/20) History of colonoscopy (~10/23/20) History of appendectomy History of cholecystectomy (~2002) Social History Smoking Status: Former smoker Tobacco: How many years used: 33 how long ago did patient quit smokin08/07/2001 alcohol intake: never substance use type: does not use ROS ROS ED ROS Narrative Review of systems positive for increased redness on right trapezius extending out towards neck, and right shoulder. No fevers or chills, no nausea or vomiting, no increased pain or decreased movement of right shoulder. No exacerbating or alleviating factors. EXAM Physical Exam Narrative Exam Narrative: Afebrile. Vital signs noted. Nontoxic-appearing. Cardiovascular examination reveals regular rate and rhythm. Lungs are clear to auscultation bilaterally. Abdomen is soft, nontender, without guarding or rebound. Neurological examination nonfocal and nonlateralizing. Inspection of the right shoulder and neck shows increased redness slightly extending outside?line drawn around cellulitic areas. No crepitance. Full range of motion of right shoulder. Neurovascularly intact distally. Small areas on back that seem to be improving. Const Vital Signs: 11/15/24 12:27 11/15/24 12:29 11/15/24 13:29 Temperature 97.5 F L 97.5 F L 98.5 F Temperature Source Oral Temporal Oral Pulse Rate 80 80 86 Respiratory Rate 18 18 18 Blood Pressure 120/67 120/67 141/67 H Blood Pressure Mean 84 84 91 Pulse Ox 99 99 97 Oxygen Delivery Method Room Air Room Air Room Air 11/15/24 14:00 11/15/24 15:00 Temperature 97.9 F 98 F Temperature Source Oral Oral Pulse Rate 70 79 Respiratory Rate 18 18 Blood Pressure 123/58 H 119/66 Blood Pressure Mean 79 83 Pulse Ox 96 97 Oxygen Delivery Method Room Air Room Air MDM MDM MDM Narrative Medical decision making narrative: Differential diagnosis includes but not limited to inflammatory reaction versus bug bites versus worsening cellulitis and failure of outpatient treatment. Sepsis workup was pursued, however he is currently afebrile and not tachycardic. Although he has been on antibiotics blood cultures will be drawn. I reviewed his laboratory work and he has a normal white count of 5.3, hemoglobin 13.0, hematocrit 37.9 with platelet count normal 337. INR normal at 1.0, APTT normal at 35.9, electrolyte panel grossly unremarkable with glucose 112 but normal anion gap of 12. LFTs are grossly unremarkable. Lactic acid is also normal at 1.4. Currently he is not meeting any SIRS criteria, nor is he septic. I did order Zosyn and vancomycin. I had a lengthy discussion with the patient and his . I offered observation for continued IV antibiotics. I also discussed with him that this may be more of an inflammatory process than infectious cellulitis. He has only been on 2 days of antibiotics. He prefers continued outpatient treatment. As his workup here is negative, I feel that he could be discharged to follow-up and finish his course of outpatient antibiotics. He and his are agreeable to discharge. Return instructions to the emergency department were reviewed. Disposition is discharged home in stable condition. History & Record Review Discussion w/independent historian: Patient and Family Lab Data Attestation: I reviewed the patient's lab results. Labs: Laboratory Results - last 24 hr 11/15/24 12:45 WBC 5.3 RBC 4.31 L Hgb 13.0 Hct 37.9 L MCV 87.9 MCH 30.2 MCHC 34.3 RDW Std Deviation 39.1 RDW Coeff of Dari 12.2 Plt Count 337 MPV 8.3 Immature Gran % (Auto) 0.600 Neut % (Auto) 67.4 Lymph % (Auto) 20.2 [place] % (Auto) 7.6 Eos % (Auto) 3.4 Baso % (Auto) 0.8 Absolute Neuts (auto) 3.5 Absolute Lymphs (auto) 1.06 Nucleated RBC % 0 PT 13.3 INR 1.0 APTT 35.9 Sodium 139 Potassium 4.4 Chloride 105 Carbon Dioxide 22.5 Anion Gap 12 BUN 12 Creatinine 0.77 Estim Creat Clear Calc 88.72 Est GFR (MDRD) Non-Af 96 BUN/Creatinine Ratio 15.5 Glucose 112 H Lactic Acid 1.4 Calcium 9.3 Total Bilirubin 0.27 AST 33 ALT 34 Alkaline Phosphatase 112 Total Protein 7.0 Albumin 4.2 Globulin 2.8 Albumin/Globulin Ratio 1.5 Discharge Plan Triage Chief Complaint: Cellulitis ED Provider: Fredo Smiley Dx/Rx/DC Orders Clinical Impression: Cellulitis, Erythema Instructions: ED Cellulitis, ED Erythema Prescriptions: No Action coenzyme Q10 [Co Q-10] 100 mg capsule 100 mg PO QHS omeprazole 40 mg capsule,delayed release(DR/EC) 40 mg PO BID cyanocobalamin (vitamin B-12) [Vitamin B-12] 1,000 [...] 80 mg tablet 40 mg PO QHS triamcinolone acetonide 0.5 % ointment 1 applic topical BID Calcium 600 with Vitamin D3 1 EACH tablet,chewable 1 ea PO DAILY albuterol sulfate [Ventolin HFA] 90 mcg/actuation HFA aerosol inhaler 2 puff inhalation Q6H PRN (Reason: Wheezing) ondansetron 4 mg tablet,disintegrating 4 mg PO Q8H PRN PRN (Reason: Nausea) Qty: 10 0RF prednisone 20 mg tablet 40 mg PO DAILY 7 Days Qty: 14 0RF albuterol sulfate [Ventolin HFA] 90 mcg/actuation HFA aerosol inhaler 2 puff inhalation Q4H PRN PRN (Reason: Wheezing) Qty: 1 0RF cephalexin 500 mg capsule 500 mg PO Q6 Qty: 40 0RF benzonatate 200 mg capsule 200 mg PO TID PRN PRN (Reason: cough) ipratropium-albuterol 0.5 mg-3 mg(2.5 mg base)/3 mL solution for nebulization 3 ml inhalation Q4H PRN (Reason: sob) Samuel Alvar[place] 100-62.5-25 mcg blister with device 1 ea inhalation DAILY Primary Care Provider: Andry Jean-Baptiste Referrals: Andry Jean-Baptiste MD [Primary Care Provider] - 3-5 Days Activity Restrictions/Additional Instructions: Continue the cephalexin 4 times a day that you are given 2 days ago. Finish thecourse of therapy. Return to the emergency department with fever, increased erythema/redness of the skin, new or worsening symptoms. Print Language: Citizen Of [place] Disposition Disposition: Home, Self Care What to do if you have Problems For any increased pain, shortness of breath, bleeding, nausea or vomiting, chestpain, or any unexpected problems, contact your Primary Care Provider. Call [facility] ([phone]) or report to the closest Emergency Room. Call 911 if necessary. 11/15/24 4374 <Electronically signed by Fredo Smiley MD> Cosigner Signature (if applicable): CC: Dr. Andry Jean-Baptiste MD ~ Signed [facility] Work Phone: [phone] 538-550107-08-2025 Telephone encounter Note* Telephone Encounter - Andry Jean-Baptiste MD - 2024 1:30 PM EDT Noted [facility]07-08-2025 Miscellaneous Notes* Telephone Encounter - Andry Jean-Baptiste MD - 2024 1:30 PM EDT Noted * Telephone Encounter - Kelly Goldberg LPN - 2024 9:50 AM EDT Patient Sola talbot said her cellulitis areas are getting worse, spreading acrosshis chest. He said it cardenas if any water touches any of the areas, on his shoulder, neck area, arm and across his chest. He is going to go back to the ER since they had told him if not getting any better may have to put him on IV antibiotics. said if he is feeling that bad she is taking him [facility] ER. * Telephone Encounter - Gina Floyd MA - 11/14/2024 8:58 AM EDT See pt message. The ED paperwork states to f/u with PCP's office within 3-5 days if not improving. Do you want pt to schedule now? Advise. ED visit below for you to review. Gina Floyd MA Scan on 11/13/2024 6:31 PM by Provider, External, PAPercyC: [facility] Telephone encounter Note * Telephone Encounter - Kelly Goldberg LPN - 2024 9:50 AM EDT Patient Sola talbot said her cellulitis areas are getting worse, spreading acrosshis chest. He said it cardenas if any water touches any of the areas, on his shoulder, neck area, arm and across his chest. He is going to go back to the ER since they had told him if not getting any better may have to put him on IV antibiotics. said if he is feeling that bad she is taking him [facility] ER. [facility]07-08-2025 Hospital Discharge instructionsAdditional Instructions Continue the cephalexin 4 times a day that you are given 2 days ago. Finish the course of therapy. Return to the emergency department with fever, increased erythema/redness of the skin, new or worsening symptoms.[facility] Work Phone: [phone]) 854-438407-07-2025 Telephone encounter Note* Telephone Encounter - Gina Floyd MA - 11/14/2024 8:58 AM EDT See pt message. The ED paperwork states to f/u with PCP's office within 3-5 days if not improving. Do you want pt to schedule now? Advise. ED visit below for you to review. Gina Floyd MA Scan on 11/13/2024 6:31 PM by Provider, External, PAPercyC: [facility]07-06-2025 Discharge summary [facility] Medical Records Department [address] [place] [address] Emergency Department Summary 11/13/24 MR#: [id number] Acct: [id number] Name: TARA ARELLANO Rep #:[id number] : 1955 68 From: Maycol Olivraes MD PCP: Dr. Andry Jean-Baptiste MD Status:REG ER Location: ED HPI History of Present Illness Chief Complaint: Rash Informant: patient Onset/Context/Timing Onset: Days Context: Gradual Onset Timing: Continuous Current Severity: Mild Maximum Severity: Mild Narrative Narrative: 78-year-old male history of CAD and COPD. Has had redness to his right arm for about 7 days somewhat uncomfortable. Denies fever or chills. She does a lot ofoutside work but he does not remember getting bit or stung by anything. No prior history of cellulitis. Prior similar symptoms: No Recent Illness/Hospitalization: No PFSH PFSH Medical History Respiratory failure Coronary artery [...] Insomnia Bilateral carotid artery disease Home Medications ?Medication ?Instructions ?Recorded ?Last Taken ?Type calcium 600 mg (as carbonate)-vit 1 ea PO DAILY vitami n 09/08/16 Unknown History D3 10 mcg (400 unit) chewable tablet (Calcium 600 with Vitamin D3) albuterol sulfate 90 mcg/actuation 2 puff inhalation Q 6H PRN Wheezing 10/24/21 Unknown History aerosol inhaler (Ventolin HFA) cholecalciferol (vitamin D3) 1,250 1,250 mcg PO QWEEK vitamin 10/24/21 Unknown History mcg (50,000 unit) tablet cyanocobalamin (vitamin B-12) 2,000 mcg PO DAILY vitam in 10/24/21 Unknown History 1,000 mcg tablet (Vitamin B-12) epinephrine 0.3 mg/0.3 mL 0.3 mg IM ONCE PRN Allergic 10/24/21 Unknown History injection, auto-injector (EpiPen) Reaction nitroglycerin 0.4 mg sublingual 0.4 mg sublingual Q5-1 5M PRN Chest 10/24/21 Unknown History tablet Pain omega-3 fatty acids 1,000 mg 1,000 mg PO DAILY supplem ent 10/24/21 Unknown History capsule omeprazole 40 mg capsule,delayed 40 mg PO BID reflux 0 10/24/21 Unknown History release coenzyme Q10 100 mg capsule (Co 100 mg PO QHS suppleme nt 10/25/21 Unknown History Q-10) iron, carbonyl 45 mg tablet 45 mg PO DAILY supplement 04/22/22 Unknown History pravastatin 80 mg tablet 40 mg PO QHS cholesterol Unknown History benzonatate 200 mg capsule 200 mg PO TID PRN PRN cough 09/20/23 Unknown History fluticasone fur. 100 mcg-umeclid 1 ea inhalation DAILY breathing 09/20/23 Unknown History 62.5 mcg-vilant 25 mcg inhalat.powder (Trelegy Ellipta) ipratropium 0.5 mg-albuterol 3 mg 3 ml inhalation Q4H PRN sob 09/20/23 Unknown History (2.5 mg base)/3 mL nebulization soln triamcinolone acetonide 0.5 % 1 applic topical BID 04/03 Unknown History topical ointment ondansetron 4 mg disintegrating 4 mg PO Q8H PRN PRN Na usea #10 tabs 03/29/24 Unknown Rx tablet Held on 11/13/24. Instructions: Pt has been DC'd albuterol sulfate 90 mcg/actuation 2 puff inhalation Q 4H PRN PRN 07/10/24 Unknown Rx aerosol inhaler (Ventolin HFA) Wheezing #1 ea prednisone 20 mg tablet 40 mg (2 x 20 mg) PO DAILY 7 days 07/10/24 Unknown Rx #14 tabs cephalexin 500 mg capsule 500 mg PO Q6 #40 CAPSULES Unknown Rx Allergy/AdvReac Type Severity Reaction Status Date / Time bee venom protein (honey bee) Allergy Intermediate Hives Verified 11/13/24 17:52 morphine Allergy Intermediate hypotension Verified 11/13/24 17:52 pneumococcal vaccine Allergy Intermediate localized Verified 11/13/24 17:52 swelling codeine Allergy Unknown Verified 11/13/24 17:52 meperidine HCl (From Demerol) Allergy Unknown Verified 11/13/24 17:52 propoxyphene HCl (From Allergy Unknown Verified 11/13/24 17:52 Darvon) propoxyphene napsylate (From Allergy Unknown Verified 11/13/24 17:52 Darvocet-N 100) atorvastatin (From Lipitor) AdvReac Intermediate leg Verified 11/13/24 17:52 weakness Family History Mother Diabetes CHF (congestive heart failure) Hypertension Colon cancer Father Cancer pancreatic Sister Colon cancer Brother COPD (chronic obstructive pulmonary disease) Diabetes Cancer prostate Surgical History History of carpal tunnel release History of gastric bypass History of back surgery (09/11/15) H/O bypass gastrojejunostomy (~2006) History of left heart catheterization (10/28/21) History of esophagogastroduodenoscopy (EGD) (~10/23/20) History of colonoscopy (~10/23/20) History of appendectomy History of cholecystectomy (~2002) Social History Smoking Status: Former smoker Tobacco: How many years used: 33 how long ago did patient quit smokin08/07/2001 alcohol intake: never substance use type: does not use ROS ROS ED ROS Narrative Painful rash to right arm. Constitutional Constitutional ED: Denies chills or fever(s) Eyes Eyes: Denies blurry vision ENT ENT ED: Denies ear pain Cardiovascular Cardiovascular: Denies chest pain Respiratory/Chest Respiratory/Chest: Denies cough or dyspnea Gastrointestinal Gastrointestinal: Denies abdominal pain Genitourinary Genitourinary ED: Denies dysuria or hematuria Musculoskeletal Musculoskeletal: Denies arthralgias or back pain Integumentary Denies abscess or Abrasions Neurologic Neurologic: Denies headache(s) Psychiatric Psychiatric: Denies anxiety or depression Endocrine Endocrinology: Denies cold intolerance Hematologic/Lymphatic Hematologic/Lymphatic: Reports none Allergic/Immunologic Allergic/Immunologic ED: Denies mouth swelling, tongue swelling or urticaria EXAM Physical Exam Narrative Exam Narrative: 68-year-old male vital signs stable afebrile does not look septic or toxic no acute distress. at bedside. H EENT exam pupils round react to light. Mytrex membranes. Neck nontender no lymphadenopathy. Lungs clear to auscultation bilateral. Heart regular rate and rhythm no murmur. Chest wall ribs nontender. Abdomen soft nontender. Moving all 4 extremities. Neurovascular intact. No edema. Normal strength. Normal range of motion. Hisright upper arm laterally there is a red circular area consistent with a cellulitis. Is mildly tender to palpation. No necrotic skin. No axillary lymphadenopathybut he has mild redness in his armpit also. Also on his tongue with his right shoulder. His full range of motion of right shoulder is not swelling. There is no signs of septic joint. Exam is consistent with either cellulitis or possibly allergic reaction to insect stings but there is no site of thesting and no history of a sting. Neurologically he is awake and alert. Answer questions following commands. Benign exam. Const Vital Signs: 11/13/24 17:51 Temperature 97.8 F Temperature Source Oral Pulse Rate 88 Respiratory Rate 18 Blood Pressure 121/82 H Blood Pressure Mean 95 Pulse Ox 98 Oxygen Delivery Method Room Air Positive well nourished and well developed; Negative for obese, cachectic, contractures or unkempt General Appearance ED: well developed and NAD; Negative for unkempt, cachectic, contractures, cyanotic, diaphoretic or pallor Nutritional Appearance: Negative for cachectic or obese HEENT Reports moist mucous membranes Eyes PERRL and EOMs intact bilaterally Neck no lymphadenopathy, supple and no JVD Chest Wall inspection of chest normal and palpation of chest normal Resp normal respiratory effort and clear to auscultation bilaterally Cardio regular rate, regular rhythm, S1 normal heart sound, S2 normal heart sound and no murmurs GI normal to inspection, nondistended, normoactive bowel sounds, non-tender, non- distended and no masses Inspection: Negative for abdominal distention Auscultation: normoactive bowel sounds Palpation: soft; Negative for tender or guarding Back/Spine no CVA tenderness General Back: Negative for CVA tenderness Cervical Spine: Negative for cervical spine tenderness Thoracic Spine / Upper Back: Negative for thoracic spinal tenderness or paraspinal muscle tenderness Lumbar Spine / Lower Back: Negative for lumbar spinal tenderness Extremity normal to inspection Extremity Narrative: Red circular area probably 6 inches in diameter. Consistent with either cellulitis or local allergic reaction. Also in his axilla but no axillary lymphadenopathy on top of his right shoulder. Full range of motion of the shoulder no signs of a septic shoulder. No swelling. Forearm nontender nonswolle n normal radial pulse. General Extremety ED: Yes tenderness; Negative for edema General Extremity: Negative for edema Neuro oriented x3 and CN's II-XII intact bilaterally Sensorium / Orientation: alert; Negative for orientation impaired Motor Exam: strength 5/5 throughout Psych mental status grossly normal Appearance: Negative for unkempt Attitude: No agitated Mood & Affect: Negative for depressed Skin No no rashes or lesions noted, no wounds and skin turgor normal General Skin Exam: Negative for elasticity normal, jaundice or pallor Lesions: No lesion noted Rashes: rashes noted Trauma: Negative for abrasion Wounds: Negative for wounds noted MDM MDM MDM Narrative Medical decision making narrative: Keep sick 8-year-old male red rash right lateral upper arm axilla and top of hisshoulder consistentwith cellulitis. No lymphadenopathy. No necrotic tissue. No subcu air. No septic joint. No history of insect bite or stings. He will be treated with Keflex first dose given here. Dose for tonight. 4 times a day for the next 10 days. Follow-up if not improving return if worse. Follow-up with primarycare physician. History & Record Review Discussion w/independent historian: Patient and Family Additional record(s) reviewed:: Prior inpatient record, Prior outpatient record,Prior ED visit and Prior labs Discharge Plan Triage Chief Complaint: Rash ED Provider: Maycol Olivares Dx/Rx/DC Orders Clinical Impression: Cellulitis Instructions: ED Cellulitis Prescriptions: New cephalexin 500 mg capsule 500 mg PO Q6 Qty: 40 0RF No Action coenzyme Q10 [Co Q-10] 100 mg capsule 100 mg PO QHS omeprazole 40 mg capsule,delayed release(DR/EC) 40 mg PO BID cyanocobalamin (vitamin B-12) [Vitamin B-12] 1,000 [...] 80 mg tablet 40 mg PO QHS triamcinolone acetonide 0.5 % ointment 1 applic topical BID Calcium 600 with Vitamin D3 1 EACH tablet,chewable 1 ea PO DAILY albuterol sulfate [Ventolin HFA] 90 mcg/actuation HFA aerosol inhaler 2 puff inhalation Q6H PRN (Reason: Wheezing) ondansetron 4 mg tablet,disintegrating 4 mg PO Q8H PRN PRN (Reason: Nausea) Qty: 10 0RF prednisone 20 mg tablet 40 mg PO DAILY 7 Days Qty: 14 0RF albuterol sulfate [Ventolin HFA] 90 mcg/actuation HFA aerosol inhaler 2 puff inhalation Q4H PRN PRN (Reason: Wheezing) Qty: 1 0RF benzonatate 200 mg capsule 200 mg PO TID PRN PRN (Reason: cough) ipratropium-albuterol 0.5 mg-3 mg(2.5 mg base)/3 mL solution for nebulization 3 ml inhalation Q4H PRN (Reason: sob) Trelegy Ellipta 100-62.5-25 mcg blister with device 1 ea inhalation DAILY Primary Care Provider: Andry Jean-Baptiste Referrals: Andry Jean-Baptiste MD [Primary Care Provider] - 3-5 Days if not improving Activity Restrictions/Additional Instructions: Suspect soft tissue skin infection called cellulitis. Could be secondary to insect bite or stings but there is no history that you were bit or stung. Keflex 1 pill 4 times a day till gone. Take a dose of antibiotic tonight before you go to bed. Follow-up with your doctor if not improving. Return if worse. Print Language: Citizen Of [place] Disposition Disposition: Home, Self Care What to do if you have Problems For any increased pain, shortness of breath, bleeding, nausea or vomiting, chestpain, or any unexpected problems, contact your Primary Care Provider. Call [facility] ([phone]) or report tothe closest Emergency Room. Call 911 if necessary. 11/13/24 1822 Cosigner Signature (if applicable): CC: Dr. Andry Jean-Baptiste MD ~ Signed [facility]07-06-2025 Discharge summary Author Maycol Olivares [facility] Note Date/Time November 13, 2024 6:22p [facility] Medical Records Department [address] [place] [address] Emergency Department Summary 11/13/24 MR#: [id number] Acct: [id number] Name: TARA ARELLANO Rep #:[id number] : 1955 68 From: Maycol Olivares MD PCP: Dr. Andry Jean-Baptiste MD Status:REG ER Location: ED HPI History of Present Illness Chief Complaint: Rash Informant: patient Onset/Context/Timing Onset: Days Context: Gradual Onset Timing: Continuous Current Severity: Mild Maximum Severity: Mild Narrative Narrative: 78-year-old male history of CAD and COPD. Has had redness to his right arm for about 7 days somewhat uncomfortable. Denies fever or chills. She does a lot ofoutside work but he does not remember getting bit or stung by anything. No prior history of cellulitis. Prior similar symptoms: No Recent Illness/Hospitalization: No PFSH PFS Medical History Respiratory failure Coronary artery disease [...] Insomnia Bilateral carotid artery disease Home Medications ?Medication ?Instructions ?Recorded ?Last Taken ?Type calcium 600 mg (as carbonate)-vit 1 ea PO DAILY vitami n 09/08/16 Unknown History D3 10 mcg (400 unit) chewable tablet (Calcium 600 with Vitamin D3) albuterol sulfate 90 mcg/actuation 2 puff inhalation Q 6H PRN Wheezing 10/24/21 Unknown History aerosol inhaler (Ventolin HFA) cholecalciferol (vitamin D3) 1,250 1,250 mcg PO QWEEK vitamin 10/24/21 Unknown History mcg (50,000 unit) tablet cyanocobalamin (vitamin B-12) 2,000 mcg PO DAILY vitam in 10/24/21 Unknown History 1,000 mcg tablet (Vitamin B-12) epinephrine 0.3 mg/0.3 mL 0.3 mg IM ONCE PRN Allergic 10/24/21 Unknown History injection, auto-injector (EpiPen) Reaction nitroglycerin 0.4 mg sublingual 0.4 mg sublingual Q5-1 5M PRN Chest 10/24/21 Unknown History tablet Pain omega-3 fatty acids 1,000 mg 1,000 mg PO DAILY supplem ent 10/24/21 Unknown History capsule omeprazole 40 mg capsule,delayed 40 mg PO BID reflux 0 10/24/21 Unknown History release coenzyme Q10 100 mg capsule (Co 100 mg PO QHS suppleme nt 10/25/21 Unknown History Q-10) iron, carbonyl 45 mg tablet 45 mg PO DAILY supplement 04/22/22 Unknown History pravastatin 80 mg tablet 40 mg PO QHS cholesterol Unknown History benzonatate 200 mg capsule 200 mg PO TID PRN PRN cough 09/20/23 Unknown History fluticasone fur. 100 mcg-umeclid 1 ea inhalation DAILY breathing 09/20/23 Unknown History 62.5 mcg-vilant 25 mcg inhalat.powder (Trelegy Ellipta) ipratropium 0.5 mg-albuterol 3 mg 3 ml inhalation Q4H PRN sob 09/20/23 Unknown History (2.5 mg base)/3 mL nebulization soln triamcinolone acetonide 0.5 % 1 applic topical BID 04/03 Unknown History topical ointment ondansetron 4 mg disintegrating 4 mg PO Q8H PRN PRN Na usea #10 tabs 03/29/24 Unknown Rx tablet Held on 11/13/24. Instructions: Pt has been DC'd albuterol sulfate 90 mcg/actuation 2 puff inhalation Q 4H PRN PRN 07/10/24 Unknown Rx aerosol inhaler (Ventolin HFA) Wheezing #1 ea prednisone 20 mg tablet 40 mg (2 x 20 mg) PO DAILY 7 days 07/10/24 Unknown Rx #14 tabs cephalexin 500 mg capsule 500 mg PO Q6 #40 CAPSULES Unknown Rx Allergy/AdvReac Type Severity Reaction Status Date / Time bee venom protein (honey bee) Allergy Intermediate Hives Verified 11/13/24 17:52 morphine Allergy Intermediate hypotension Verified 11/13/24 17:52 pneumococcal vaccine Allergy Intermediate localized Verified 11/13/24 17:52 swelling codeine Allergy Unknown Verified 11/13/24 17:52 meperidine HCl (From Demerol) Allergy Unknown Verified 11/13/24 17:52 propoxyphene HCl (From Allergy Unknown Verified 11/13/24 17:52 Darvon) propoxyphene napsylate (From Allergy Unknown Verified 11/13/24 17:52 Darvocet-N 100) atorvastatin (From Lipitor) AdvReac Intermediate leg Verified 11/13/24 17:52 weakness Family History Mother Diabetes CHF (congestive heart failure) Hypertension Colon cancer Father Cancer pancreatic Sister Colon cancer Brother COPD (chronic obstructive pulmonary disease) Diabetes Cancer prostate Surgical History History of carpal tunnel release History of gastric bypass History of back surgery (09/11/15) H/O bypass gastrojejunostomy (~2006) History of left heart catheterization (10/28/21) History of esophagogastroduodenoscopy (EGD) (~10/23/20) History of colonoscopy (~10/23/20) History of appendectomy History of cholecystectomy (~2002) Social History Smoking Status: Former smoker Tobacco: How many years used: 33 how long ago did patient quit smokin08/07/2001 alcohol intake: never substance use type: does not use ROS ROS ED ROS Narrative Painful rash to right arm. Constitutional Constitutional ED: Denies chills or fever(s) Eyes Eyes: Denies blurry vision ENT ENT ED: Denies ear pain Cardiovascular Cardiovascular: Denies chest pain Respiratory/Chest Respiratory/Chest: Denies cough or dyspnea Gastrointestinal Gastrointestinal: Denies abdominal pain Genitourinary Genitourinary ED: Denies dysuria or hematuria Musculoskeletal Musculoskeletal: Denies arthralgias or back pain Integumentary Denies abscess or Abrasions Neurologic Neurologic: Denies headache(s) Psychiatric Psychiatric: Denies anxiety or depression Endocrine Endocrinology: Denies cold intolerance Hematologic/Lymphatic Hematologic/Lymphatic: Reports none Allergic/Immunologic Allergic/Immunologic ED: Denies mouth swelling, tongue swelling or urticaria EXAM Physical Exam Narrative Exam Narrative: 68-year-old male vital signs stable afebrile does not look septic or toxic no acute distress. at bedside. H EENT exam pupils round react to light. Mytrex membranes. Neck nontender no lymphadenopathy. Lungs clear to auscultation bilateral. Heart regular rate and rhythm no murmur. Chest wall ribs nontender. Abdomen soft nontender. Moving all 4 extremities. Neurovascular intact. No edema. Normal strength. Normal range of motion. Hisright upper arm laterally there is a red circular area consistent with a cellulitis. Is mildly tender to palpation. No necrotic skin. No axillary lymphadenopathy but he has mild redness in his armpit also. Also on his tongue with his right shoulder. His full range of motion of right shoulder is not swelling. There is no signs of septic joint. Exam is consistent with either cellulitis or possibly allergic reaction to insect stings but there is no site of the sting and no history of a sting. Neurologically he is awake and alert. Answer questions following commands. Benign exam. Const Vital Signs: 11/13/24 17:51 Temperature 97.8 F Temperature Source Oral Pulse Rate 88 Respiratory Rate 18 Blood Pressure 121/82 H Blood Pressure Mean 95 Pulse Ox 98 Oxygen Delivery Method Room Air Positive well nourished and well developed; Negative for obese, cachectic, contractures or unkempt General Appearance ED: well developed and NAD; Negative for unkempt, cachectic, contractures, cyanotic, diaphoretic or pallor Nutritional Appearance: Negative for cachectic or obese HEENT Reports moist mucous membranes Eyes PERRL and EOMs intact bilaterally Neck no lymphadenopathy, supple and no JVD Chest Wall inspection of chest normal and palpation of chest normal Resp normal respiratory effort and clear to auscultation bilaterally Cardio regular rate, regular rhythm, S1 normal heart sound, S2 normal heart sound and no murmurs GI normal to inspection, nondistended, normoactive bowel sounds, non-tender, non-distended and no masses Inspection: Negative for abdominal distention Auscultation: normoactive bowel sounds Palpation: soft; Negative for tender or guarding Back/Spine no CVA tenderness General Back: Negative for CVA tenderness Cervical Spine: Negative for cervical spine tenderness Thoracic Spine / Upper Back: Negative for thoracic spinal tenderness or paraspinal muscle tenderness Lumbar Spine / Lower Back: Negative for lumbar spinal tenderness Extremity normal to inspection Extremity Narrative: Red circular area probably 6 inches in diameter. Consistent with either cellulitis or local allergic reaction. Also in his axilla but no axillary lymphadenopathy on top of his right shoulder. Full range of motion of the shoulder no signs of a septic shoulder. No swelling. Forearm nontender nonswollen normal radial pulse. General Extremety ED: Yes tenderness; Negative for edema General Extremity: Negative for edema Neuro oriented x3 and CN's II-XII intact bilaterally Sensorium / Orientation: alert; Negative for orientation impaired Motor Exam: strength 5/5 throughout Psych mental status grossly normal Appearance: Negative for unkempt Attitude: No agitated Mood & Affect: Negative for depressed Skin No no rashes or lesions noted, no wounds and skin turgor normal General Skin Exam: Negative for elasticity normal, jaundice or pallor Lesions: No lesion noted Rashes: rashes noted Trauma: Negative for abrasion Wounds: Negative for wounds noted MDM MDM MDM Narrative Medical decision making narrative: Keep sick 8-year-old male red rash right lateral upper arm axilla and top of hisshoulder consistent with cellulitis. No lymphadenopathy. No necrotic tissue. No subcu air. No septic joint. No history of insect bite or stings. He will be treated with Keflex first dose given here. Dose for tonight. 4 times a day for the next 10 days. Follow-up if not improving return if worse. Follow-up with primary care physician. History & Record Review Discussion w/independent historian: Patient and Family Additional record(s) reviewed:: Prior inpatient record, Prior outpatient record,Prior ED visit and Prior labs Discharge Plan Triage Chief Complaint: Rash ED Provider: Maycol Olivares Dx/Rx/DC Orders Clinical Impression: Cellulitis Instructions: ED Cellulitis Prescriptions: New cephalexin 500 mg capsule 500 mg PO Q6 Qty: 40 0RF No Action coenzyme Q10 [Co Q-10] 100 mg capsule 100 mg PO QHS omeprazole 40 mg capsule,delayed release(DR/EC) 40 mg PO BID cyanocobalamin (vitamin B-12) [Vitamin B-12] 1,000 [...] 80 mg tablet 40 mg PO QHS triamcinolone acetonide 0.5 % ointment 1 applic topical BID Calcium 600 with Vitamin D3 1 EACH tablet,chewable 1 ea PO DAILY albuterol sulfate [Ventolin HFA] 90 mcg/actuation HFA aerosol inhaler 2 puff inhalation Q6H PRN (Reason: Wheezing) ondansetron 4 mg tablet,disintegrating 4 mg PO Q8H PRN PRN (Reason: Nausea) Qty: 10 0RF prednisone 20 mg tablet 40 mg PO DAILY 7 Days Qty: 14 0RF albuterol sulfate [Ventolin HFA] 90 mcg/actuation HFA aerosol inhaler 2 puff inhalation Q4H PRN PRN (Reason: Wheezing) Qty: 1 0RF benzonatate 200 mg capsule 200 mg PO TID PRN PRN (Reason: cough) ipratropium-albuterol 0.5 mg-3 mg(2.5 mg base)/3 mL solution for nebulization 3 ml inhalation Q4H PRN (Reason: sob) Trelegy Ellipta 100-62.5-25 mcg blister with device 1 ea inhalation DAILY Primary Care Provider: Andry Jean-Baptiste Referrals: Andry Jean-Baptiste MD [Primary Care Provider] - 3-5 Days if not improving Activity Restrictions/Additional Instructions: Suspect soft tissue skin infection called cellulitis. Could be secondary to insect bite or stings but there is no history that you were bit or stung. Keflex 1 pill 4 times a day till gone. Take a dose of antibiotic tonight before you go to bed. Follow-up with your doctor if not improving. Return if worse. Print Language: Citizen Of [place] Disposition Disposition: Home, Self Care What to do if you have Problems For any increased pain, shortness of breath, bleeding, nausea or vomiting, chestpain, or any unexpected problems, contact your Primary Care Provider. Call [facility] ([phone]) or report to the closest Emergency Room. Call 911 if necessary. 11/13/24 182 <Electronically signed by Maycol Olivares MD> Cosigner Signature (if applicable): CC: Dr. Andry Jean-Baptiste MD ~ Signed [facility] Work Phone: 1(603) 687-715205-02-2025 Telephone encounter Note* Telephone Encounter - Jun Abbott MSW - 09/09/2024 12:13 PM EDT [place] spoke with patient regarding [employer] PAP for Trelegy. Discussed out of pocket spend out amount at pharmacy and income guidelines for program. Patient and spouse asked that Sw mail application to patient home. Ch[place] confirmed address and placed application in the mail. [place] discuss completing patient portion and bringing back forms to Dr. Gross office to print off prescription to attach to forms to then be faxed. [facility]05-02-2025 Miscellaneous Notes* Telephone Encounter - Jun Abbott MSW - 09/09/2024 12:13 PM EDT Sw spoke with patient regarding [employer] PAP for Trelegy. Discussed out of pocket spend out amount at pharmacy and income guidelines for program. Patient and spouse asked that Sw mail application to patient home. Sw confirmed address and placed application in the mail. [place] discuss completing patient portion and bringing back forms to Dr. Gross office to print off prescription to attach to forms to then be faxed. documented in this encounterKn[facility]05-[facility]-2025 NoteHNO ID: [id number] Author: TERI GROSS MD Service: ? Author Type: Physician Type: Progress Notes Filed: 09/09/2024 16:35 Note Text: . [facility] [place] [facility] Patient name: Tara Arellano PCP: Andry [...] by mouth once daily for 7 days. iittwbqdepk-pwkabyfev-bcnobgad (TRELEGY ELLIPTA) 100-62.5-25 mcg inhalation powder Inhale [...] time a week. cy (more content not included)...[facility]05-02-2025 History of Present illness Narrative* Teri Gross MD - 09/09/2024 10:35 AM EDT Images from the original note were not included. . [facility] [place] [facility] Patient name: Tara Arellano PCP: Andry Jean-Baptiste MD CC: cough, SOB HPI: Tara Arellano 68 year old male former 66 pack year smoker, quitting in 2001 with PMH significant for chronic back pain, PAD, GERD, history of gastric bypass, traumatic head injury, [place] on BiPAP,HLD, history of childhood asthma, COPD/emphysema, granulomatous disease. [...] 4hours as needed for wheezing/shortness of breath. levoFLOXacin (LEVAQUIN) 500 mg tablet Take 1 tablet by mouth once daily for 7 days. btutetlzamu-etmerbggc-ytmlthle (TRELEGY ELLIPTA) 100-62.5-25 mcg inhalation powder Inhale 1 Puff asinstructed once daily. (Patient not taking: Reported on [...] of antibiotics and started steroids -Will have professor of social work see if he can qualify for assistance program for [place] 2. Acute bronchitis -See #1 -Recommended masking when exposed to dusts, etc. 3. Former cigarette smoker -Former smoker with emphysema/COPD -Does not qualify for lung cancer screening but is scheduled for CT chest in one year for lung nodules Teri Gross MD [facility] [place] [facility]04[facility] Telephone encounter Note * Telephone Encounter - Erica Jovel MA - 09/07/2024 3:28 PM EDT Received a call from the patients spouse with the patient in the background. Spouse states that thepatient is having a flare up. He has [...] ashtray. She states the patient had COVID inFebruary and had pneumonia since that. The spouse secured an appointment for Thursday with Dr. Gross at 1030 in case he needs to be seen. If something were to be sent to the pharmacy it should go to [facility]. [facility]04-30-2025 Miscellaneous Notes* Telephone Encounter - Erica Jovel MA - 09/07/2024 3:28 PM EDT Received a call from the patients spouse with the patient in the background. Spouse states that thepatient is having a flare up. He has [...] ashtray. She states the patient had COVID inFebruary and had pneumonia since that. The spouse secured an appointment for Thursday with Dr. Gross at 1030 in case he needs to be seen. If something were to be sent to the pharmacy it should go to [facility] in [place]. documented in this encounterKn[facility]04-10-2025 Instructions* Patient Instructions* Jaimie Jett APRN.CNP - 08/18/2024 11:34 AM EDT 1) Keep appt. With Lew 12/13/24 2) Augmentin 875 mg 2 x day for 10 days documented in this encounterKn[facility]04-10-2025 NoteHNO ID: [id number] Author: JAIMIE JETT APRN.CNP Service: ? Author [...] tablet Take 1 tabl (more content not included)...[facility]04-10-2025 History of Present illness Narrative* Jaimie Jett APRN.VOLLEYBALL PLAYER - 08/18/2024 11:26 AM EDT This is a 68 year old male [...] 4hours as needed for wheezing/shortness of breath. pravastatin [...] Take 1 tablet by mouth once daily. tbmunbrihyb-ynwoyxkwf-mzqktgqn (TRELEGY ELLIPTA) 100-62.5-25 mcg inhalation powder Inhale 1 Puff asinstructed once daily. (Patient not taking: Reported on [...] as needed for worsening/no improvement. Jaimie Jett APRN.CNP documented in this encounterKn[facility]04-[facility]-2025 Telephone encounter Note * Telephone Encounter - Peterson Boggs RN - 08/18/2024 9:48 AM EDT Pt's Sola calling in and states pt scratched his left lower arm on a ryne nail this past Thursday. Sola states that the area around the scratch is red and puffy. Arm looks swollen. Statesthere is an open area. Pt booked for an appt today with Jaimie Suppan at 1140. Pt's last tetanus shot was 06/11/23. [facility]04-10-2025 Miscellaneous Notes* Telephone Encounter - Peterson Boggs RN - 08/18/2024 9:48 AM EDT Pt's Sola calling in and states pt scratched his left lower arm on a ryne nail this past Thursday. Sola states that the area around the scratch is red and puffy. Arm looks swollen. Statesthere is an open area. Pt booked for an appt today with Jaimie Suppan at 1140. Pt's last tetanus shot was 06/11/23. documented in this encounterKn[facility]03-07-2025 Telephone encounter Note * Telephone Encounter - Andry Jean-Baptiste MD - 07/15/2024 2:25 PM EST Noted. [facility]03-07-2025 Miscellaneous Notes* Telephone Encounter - Andry Jean-Baptiste MD - 07/15/2024 2:25 PM EST Noted. * Telephone Encounter - He Martin LPN - 07/15/2024 1:22 PM EST Pt's notified of same, verbalizes understanding. just wanted to give Dr Jean-Baptiste an update on pt. States pt had had pneumonia (states pcp was aware), pt got better then they got COVID then pthad a flare up of his COPD and went to [facility] last Thursday and saw his lung Dr on . States pt is doing ok. He Martin LPN * Telephone Encounter - Andry Jean-Baptiste MD - 07/15/2024 12:40 PM EST Let patient know his zinc level much better. documented in this encounterKn[facility]03-07-2025 Telephone encounter Note * Telephone Encounter - He Martin LPN - 07/15/2024 1:22 PM EST Pt's notified of same, verbalizes understanding. just wanted to give Dr Jean-Baptiste an update on pt. States pt had had pneumonia (states pcp was aware), pt got better then they got COVID then pthad a flare up of his COPD and went to [facility] last Thursday and saw his lung Dr on . States pt is doing ok. He Martin LPN [facility]03-07-2025 Telephone encounter Note* Telephone Encounter - Andry Jean-Baptiste MD - 07/15/2024 12:40 PM EST Let patient know his zinc level much better. [facility]03-06-2025 History of Present illness Narrative* Teri Gross MD - 07/14/2024 10:00 AM EST Images from the original note were not included. . [facility] [place] [facility] Patient name: Tara Arellano PCP: Andry Jean-Baptiste MD CC: COPD and lung nodules HPI: Tara Arellano 68 year old male former 79-[id number]-djvb smoker quitting in 2001 with PMH significant [...] mm nodule in the medial left upper lobeas measured on image 69 of series 7. 3 mm noncalcified pulmonary nodule in the right upper lobe, image 44 of series 7. No new pulmonary nodule. The central airways are patent. Pleural space: No pleural effusion. No pleural thickening. Lower neck, lymph nodes, and mediastinum: The imaged thyroid gland is normal. No lymphadenopathy inthe supraclavicular, axillary, mediastinal, or hilar regions. Heart, pericardium, and thoracic vessels: The thoracic aorta and main pulmonary artery are normal in caliber. The cardiac chambers are normal in size. No coronary artery atherosclerotic calcifications are noted, although the study is not optimized for coronary assessment. No pericardial effusion orthickening. Bones and soft tissues: No destructive bone [...] tabs for 3 days, then 2 tabs for3 days then 1 tab for 3 days [...] 4hours as needed for wheezing/shortness of breath. ieixuevlzjz-gtlhbantn-cftjosav (TRELEGY ELLIPTA) 100-62.5-25 mcg inhalation powder Inhale 1 Puff asinstructed once daily. (Patient not taking: Reported on [...] UNLISTED LAPAROSCOPIC PROCEDURE STOMACH 04/18/2019 Dr. Willard PMH, Social history, family history and surgical [...] to suggest broncholithiasis Teri Gross MD [facility] [place] documented in this encounterKn[facility]03-06-2025 NoteHNO ID: [id number] Author: TERI GROSS MD Service: ? Author Type: Physician Type: Progress Notes Filed: 07/14/2024 14:10 Note Text: . [facility] [place] [facility] Patient name: Tara Arellano PCP: Andry Jean-Baptiste MD CC: COPD and lung nodules HPI: Tara Arellano 68 year old male former [id number] smoker quitting in 2001 with PMH significant [...] virus infection) 05/30 (more content not included)... [facility] Instructions* Patient Instructions* Jaimie Jett APRN.CNP - 07/05/2024 12:44 PM EST 1) Topiramate 1/2 tablet 2 x day for 1 week then 25 mg 2 x day for migraine prevention 2) Levaquin 500 mg daily for 7 days 3) 12 day prednisone taper 4) Follow up with Lew as scheduled documented in this encounterKn[facility]02-25-2025 NoteHNO ID: [id number] Author: JAIMIE JETT APRN.CNP Service: ? Author [...] mouth at bedtime as needed (muscle spasms). plxjcdwmkkz-fyywniuvs-hpohedfh (T (more content not included)...[facility] History of Present illness Narrative* Jaimie Jett APRN.VOLLEYBALL PLAYER - 07/05/2024 12:20 PM EST This is a 68 year old male who presents today with: Patient presents with: Follow Up: Pneumonia, covid HISTORY OF PRESENT ILLNESS: Tara Arellano is a 68 year old male. Patient presents with: Follow Up: Pneumonia, covid Wearing mask. + Cough- productive- green/ yellow + Wheezing + WETS + Pain No N/V No diarrhea + Head congestion Some body aches- no change Sleeping a lot + Appetite Some headaches- accident 2014 broke neck and back (retired)- dull constant headache; then migraines(takes Acetaminophen 1500 mg twice a day)- behind [...] mouth at bedtime as needed (muscle spasms). bawzkkfyqhp-psfeagben-yyxqtaoe (TRELEGY ELLIPTA) 100-62.5-25 mcg inhalation powder Inhale 1 Puff asinstructed once daily. cholecalciferol, Vitamin D3, (VITAMIN D3) 1,250 mcg (50,000 unit) cap capsule Take 1 capsule by mouth one time a week. ipratropium-albuterol (DUONEB) 0.5 mg-3 mg(2.5 mg base)/3 mL nebu Inhale 3 mL as instructed every 4hours as needed for wheezing/shortness of breath. nitroglycerin [...] NEBULIZATION SOLN 3. Coronary artery disease involving [place] coronary artery of [place] heart without angina pectoris- ICD9: 414.01, ICD10: I25.10 Minimal irregularities - [...] improvement. Jaimie Jett CNP documented in this encounterKn[facility]02-[facility]-2025 Telephone encounter Note * Telephone Encounter - Sapna Cuevas LPN - 07/04/2024 10:52 AM EST notified of provider message/results. Sapna Cuevas LPN [facility]02-24-2025 Miscellaneous Notes* Telephone Encounter - Sapna Cuevas LPN - 07/04/2024 10:52 AM EST notified of provider message/results. Sapna Cuevas LPN * Telephone Encounter - Gina Floyd MA - 07/04/2024 9:43 AM EST Called and left message on patients spouse's voicemail to return call to the office and ask to speak with a triage nurse. Gina Floyd MA * Telephone Encounter - Lew Bird APRN.CNP - 07/04/2024 9:13 AM EST Please let patient know he is positive for covid. Since he has been continuously sick for weeks he is not eligible for treatment. documented in this encounterKn[facility]02-[facility]-2025 Telephone encounter Note * Telephone Encounter - Gina Floyd MA - 07/04/2024 9:43 AM EST Called and left message on patients spouse's voicemail to return call to the office and ask to speak with a triage nurse. Gina Floyd MA [facility]02-24-2025 Telephone encounter Note* Telephone Encounter - Lew Bird APRN.CNP - 07/04/2024 9:13 AM EST Please let patient know he is positive for covid. Since he has been continuously sick for weeks he is not eligible for treatment. [facility]02-21-2025 Telephone encounter Note* Telephone Encounter - Radha Ramires MA - 07/01/2024 2:21 PM EST Pt notified and verbalized understanding Radha Ramires MA [facility]02-21-2025 Miscellaneous Notes* Telephone Encounter - Radha Ramires MA - 07/01/2024 2:21 PM EST Pt notified and verbalized understanding Radha Ramires MA * Telephone Encounter - Lew Bird APRN.CNP - 07/01/2024 2:18 PM EST Please let patient know their xray is normal. documented in this encounterKnox [facility] Hospital02-21-2025 Telephone encounter Note * Telephone Encounter - Lew Bird APRN.CNP - 07/01/2024 2:18 PM EST Please let patient know their xray is normal. [facility]02-21-2025 AlziVVOI-HJD-9 (AGENT OF COVID-19) RNA: Detected INFLUENZA A RNA: Not detected INFLUENZA B RNA: Not detected RESPIRATORY SYNCYTIAL VIRUS (RSV) RNA: Not detectedKeenan Private HospitalComment on above:Performed By: #### [id number]- [id number] ####[place] [facility] [id number] [address]02-21-2025 History of Present illness Narrative* Robyn Guadalupe Tech - 07/01/2024 2:00 PM EST Radiology Service Progress Note PATIENT [...] PATIENT PRESENTS WITH AN IMPLANTABLE OR ATTACHED FLIGHT TEST SHOP MECHANIC: No RADIOLOGY DEPARTMENT: General X-ray: Exam(s) Completed: Chest X-Ray PERIPHERAL IV DATA: Not applicable SIGNED BY: Zeny Lei July 01, 2024 2:02 PM documented in this encounterKnox [facility] Hospital02-21-2025 NoteHNO ID: [id number] Author: ROBYN GUADALUPE Tech Service: ? Author [...] PATIENT PRESENTS WITH AN IMPLANTABLE OR ATTACHED FLIGHT TEST SHOP MECHANIC: No RADIOLOGY DEPARTMENT: General X-ray: Exam(s) Completed: Chest X-Ray PERIPHERAL IV DATA: Not applicable SIGNED BY: Zeny Lei July 01, 2024 2:02 [facility]02-21-2025 NoteHNO ID: [id number] Author: LEW BIRD APRN.JEAN Service: ? Author Type: Nurse Practitioner Type: [...] PFRMD 10/23/2020 EGD 11/05/2011 ESOPHAGOGASTRODUODENOSCOPY TRANSORAL DIAGNOSTIC 5/07, 01/15, 08/16, 06/21 ESOPHAGOGASTRODUODENOSCOPY TRANSORAL DIAGNOSTIC 09/01/2018 [...] (TYLENOL EXTRA STRENGTH) 5 (more content not included)...[facility]02[facility] History of Present illness Narrative* Lew Bird APRN.VOLLEYBALL PLAYER - 07/01/2024 1:33 PM EST Chief Complaint Patient presents with: Cough Head [...] mouth at bedtime as needed (muscle spasms). jjrwzrnjxda-cfuxdfsop-rgkhpldy (TRELEGY ELLIPTA) 100-62.5-25 mcg inhalation powder Inhale 1 Puff asinstructed once daily. cholecalciferol, Vitamin D3, (VITAMIN D3) 1,250 mcg (50,000 unit) cap capsule Take 1 capsule by mouth one time a week. ipratropium-albuterol (DUONEB) 0.5 mg-3 mg(2.5 mg base)/3 mL nebu Inhale 3 mL as instructed every 4hours as needed for wheezing/shortness of breath. nitroglycerin [...] A/B & RSV PCR, ROUTINE Lew Bird APRN.VOLLEYBALL PLAYER documented in this encounterKnox [facility] Hospital02-21-2025 Telephone encounter Note * Telephone Encounter - Vanesa Fontanez LPN - 07/01/2024 9:42 AM EST called in to report pt was dx with Pneumonia earlier and was treated with ATB and steroids. Ptwas doing okay till about 3 to 4 days ago and started with symptoms again and coughing. Pt scheduled apt today 07-01-24 with provider/team. also not feeling well and book for apt after pts. Vanesa Fontanez LPN [facility]02-21-2025 Miscellaneous Notes* Telephone Encounter - Vanesa Fontanez LPN - 07/01/2024 9:42 AM EST called in to report pt was dx with Pneumonia earlier and was treated with ATB and steroids. Ptwas doing okay till about 3 to 4 days ago and started with symptoms again and coughing. Pt scheduled apt today 07-01-24 with provider/team. also not feeling well and book for apt after pts. Vanesa Fontanez LPN documented in this encounterKn[facility] Hospital02-11-2025 Note* Addendum Note - Jaimie Jett APRN.CNP - 06/21/2024 3:58 PM ESTAddended by: JAIMIE JETT on: 06/21/2024 03:58 PM Modules accepted: Orders [facility]02-11-2025 Miscellaneous Notes* Addendum Note - Jaimie Jett APRN.CNP - 06/21/2024 3:58 PM ESTAddended by: JAIMIE JETT on: 06/21/2024 03:58 PM Modules accepted: Orders documented in this encounterKnox [facility] Hospital02-11-2025 Instructions* Patient Instructions* Jaimie Jett APRN.CNP - 06/21/2024 3:54 PM EST 1) Amoxicillin / clavulanate 2 x day for 10 days 2) Azithromycin 2 tablets today, 1 daily for 4 more days 3) Prednisone 4 tablets daily for 3 days, 2 tablets daily for 3 days, 1 tablets daily for 3 days 4) Follow up 2 weeks documented in this encounterKn[facility] Hospital02-11-2025 NoteHNO ID: [id number] Author: JAIMIE JETT APRN.CNP Service: ? Author [...] mouth at bedtime as needed (muscle spasms). doikllwsetw-pdgovmhpe-xvzccgie (TRELEGY ELLIPTA) 100-62.5-25 mcg inhalation powder Inhale 1 Puff as instructed once daily. cholecalciferol, Vitamin D3, (VITAMIN D3) 1,250 mcg (50,000 unit) cap capsule Take 1 capsule by mouth one time a week. ipratropium-albuterol (DUONEB) 0.5 mg-3 mg(2.5 mg ba (more content not included)...[facility]02[facility] History of Present illness Narrative* Jaimie Jett APRN.VOLLEYBALL PLAYER - 06/21/2024 3:43 PM EST This is a 68 year old male [...] mouth at bedtime as needed (muscle spasms). isangjsxpnv-rffmtqcbp-wlwlnkck (TRELEGY ELLIPTA) 100-62.5-25 mcg inhalation powder Inhale 1 Puff asinstructed once daily. cholecalciferol, Vitamin D3, (VITAMIN D3) 1,250 mcg (50,000 unit) cap capsule Take 1 capsule by mouth one time a week. ipratropium-albuterol (DUONEB) 0.5 mg-3 mg(2.5 mg base)/3 mL nebu Inhale 3 mL as instructed every 4hours as needed for wheezing/shortness of breath. nitroglycerin [...] as needed for worsening/no improvement. Jaimie Jett APRN.CNP documented in this encounterKn[facility]02-[facility] History of Present illness Narrative* Chayo Gomez, RT(R) - 06/17/2024 9:00 AM EST Radiology Service Progress Note PATIENT [...] PATIENT PRESENTS WITH AN IMPLANTABLE OR ATTACHED FLIGHT TEST SHOP MECHANIC: No RADIOLOGY DEPARTMENT: CT; Exam(s) Completed: Chest PERIPHERAL IV DATA: Not applicable SIGNED BY: RT Shelton(R) June 17, 2024 9:13 AM documented in this encounterKnox [facility] Hospital02-07-2025 NoteHNO ID: [id number] Author: CHAYO GOMEZ RT(R) Service: ? Author Type: Field Support Technician Type: Progress Notes Filed: 06/17/2024 09:13 [...] PATIENT PRESENTS WITH AN IMPLANTABLE OR ATTACHED FLIGHT TEST SHOP MECHANIC: No RADIOLOGY DEPARTMENT: CT; Exam(s) Completed: Chest PERIPHERAL IV DATA: Not applicable SIGNED BY: RT Shelton(R) June 17, 2024 9:13 [facility]02-05-[facility]25 Instructions* Patient Instructions* Andry Jean-Baptiste MD - 06/15/2024 9:48 AM [...] review all the medicines you take, even ghlv-yta-snlrybq medicines. As you get older, the way medicines work in your body can change. Some medicines, or combinations of medicines, can make you sleepy or dizzy andcan cause you to fall. 3. Have your [...] have certain medical conditions. documented in this encounterKnox [facility] Hospital02-05-2025 History of Present illness Narrative* Andry Jean-Baptiste MD - 06/15/2024 9:40 AM EST Images from the original note [...] General (Family Medicine) Lew Bird APRN.CNP as Special Weapons And Tactics Officer (Family Medicine) Irma Perez PA-C as Special Weapons And Tactics Officer (Family Medicine) Cardiology last visit 10/2023 Dr. [...] mouth at bedtime as needed (muscle spasms). lyfxvgkaqnf-xrdvvznty-clqecmgs (TRELEGY ELLIPTA) 100-62.5-25 mcg inhalation powder Inhale 1 Puff asinstructed once daily. cholecalciferol, Vitamin D3, (VITAMIN D3) 1,250 mcg (50,000 unit) cap capsule Take 1 capsule by mouth one time a week. ipratropium-albuterol (DUONEB) 0.5 mg-3 mg(2.5 mg base)/3 mL nebu Inhale 3 mL as instructed every 4hours as needed for wheezing/shortness of breath. nitroglycerin [...] the itchy rash on the anterior left lindsay. PSYCH: Negative for sleep disturbance, mood disorder [...] in no acute distress, well-hydrated, well nourished. andOverweight. Skin: Skin color, texture, turgor normal, no [...] Lymph 1.00 - 4.00 k/uL 1.41 1.43 [place]% % 7.8 7.2 Abs [place] <0.87 k/uL 0.41 0.34 [place]% % 5.5 [...] Negative Ketones, Urine Negative Negative Negative Specific [place], Ur 1.005 - 1.030 1.015 1.015 Hemoglobin/Blood,Ur [...] mg BID 5. Coronary artery disease involving [place] coronary artery of [place] heart without angina pectoris- ICD9: 414.01, ICD10: [...] AGE 65+ YR, HIGH DOSE, TRIVALENT (FLUZONE HIGH- DOSE): given F/u 6 months routine check Lipid and A1c. I spent a total of 40 minutes on the date of the service which included preparing to see the patient, kjzc-ua-sejk patient care, completing clinical documentation, performing a medically appropriate examination, counseling and educating the patient/family/caregiver and ordering medications, tests, or procedures. Andry Jean-Baptiste MD Participation of a fellow, resident, medical student, or advanced practice provider student in performing the sensitive examination was discussed with the patient or authorized utility sales representative. The patient or authorized utility sales representative has agreed to proceed with the sensitive examination. (Sensitive examination includes inspection and/or palpation of the breasts, pelvis, prostate and anorectal regions) documented in this encounterKnox Community Hospital02-05-2025 NoteHNO ID: [id number] Author: ANDRY JEAN-BAPTISTE MD Service: ? Author [...] General (Family Medicine) Lew Bird APRN.JEAN as Special Weapons And Tactics Officer (Family Medicine) Irma Perez PA-C as Special Weapons And Tactics Officer (Family Medicine) Cardiology last visit 10/2023 Dr. [...] Surgical History PAST SALAZAR (more content not included)...[facility]01-14-2025 Telephone encounter Note* Telephone Encounter - Kendrick Julio LPN - 05/24/2024 11:51 AM EST Prescription Refill Information The patient has been [...] Julio LPN May 24, 2024 11:51 AM [facility]01-[facility] Miscellaneous Notes* Telephone Encounter - Kendrick Julio LPN - 05/24/2024 11:51 AM EST Prescription Refill Information The patient has been [...] 24, 2024 11:51 AM documented in this encounterKnox [facility] Hospital01-09-2025 Telephone encounter Note * Telephone Encounter - Andry Jean-Baptiste MD - 05/19/2024 5:19 PM EST The following approved medication requests have been transmitted electronically. Requested Prescriptions Signed Prescriptions Disp Refills triamcinolone acetonide topical 0.5 % ointment 30 g 1 Sig: Apply to affected area two times a day. May use up to 2 weeks. Andry Jean-Baptiste MD [facility]01-[facility] Miscellaneous Notes* Telephone Encounter - Andry Jean-Baptiste MD - 05/19/2024 5:19 PM EST The following approved medication requests have been transmitted electronically. Requested Prescriptions Signed Prescriptions Disp Refills triamcinolone acetonide topical 0.5 % ointment 30 g 1 Sig: Apply to affected area two times a day. May use up to 2 weeks. Andry Jean-Baptiste MD * Telephone Encounter - Nancy Medley MA - 05/19/2024 4:29 PM EST Please resend triamcinolone to patients [facility] in [place]. Does not want filled through [facility]. Thank you, Nancy Medley MA documented in this encounterKnox Community Hospital01-09-2025 Telephone encounter Note * Telephone Encounter - Nancy Medley MA - 05/19/2024 4:29 PM EST Please resend triamcinolone to patients [facility] in [place]. Does not want filled through [facility]. Thank you, Nancy Medley MA [facility]01-09[facility] Instructions* Patient Instructions* Srinath Summers - 05/19/2024 11:10 AM EST Images from [...] in younger people who are on their feeta lot, such as athletes or soldiers. The plantar fascia is a strong band of connective tissue that extends from the base of the toes, along the bottom of the foot, to the bottom of the heel (calcaneous bone); it acts like a bowstring tomaintain the arch of the foot. What are heel spurs? The inflammatory reaction of the heel bone may produce spike-like projections of new bone, called heel spurs. The spurs sometimes show on X-rays. They neither cause the initial pain nor do they causethe initial problem. However, later, having to walk [...] time on their feet, such as nurses, industrial education instructor/waiters, andmail carriers, often experience plantar fasciitis. Athletes involved [...] Those who are overweight are prone to plantarfasciitis. This is true even for sedentary people who get little physical activity. Abnormalities of the foot and ankle joints may predispose some individuals to development of plantar fasciitis (spec ifically, over pronation of the subtalar joint). Contributing Factors * Flat feet * Toe running, hill running * Sudden weight increase * High-arched, rigid feet * Soft terrain, e.g. running on sand * Obesity * Pronated feet (rolled inward) * Sudden increase in activity* Family tendency * Poor shoe support * Worn out or poorly fitted shoes * Increasing age * Walking,standing or running for long periods of time, especially on hard surfaces. How is the Injury Treated? Rest Your Feet: Limit, or if possible, stop activities that are causing your heel pain. Try to avoid running or walking on hard surfaces, such as concrete. Use pain as your guide. If your foot is toopainful, rest it. Ice: Ice the sore area for 30 to 60 minutes, several times a day, to reduce inflammation and relieve pain. Apply a plastic bag of crushed ice (or a bag of frozen peas) over a towel. Ice the sore areafor 15 minutes after activity/exercise. Application of heat is not generally recommended, as heat ex pands the bone and connective tissue, perhaps exerting greater pressure on nerves and thereby increasing pain. If heat is used, follow it with ice. Medication: If your condition developed recently, anti-inflammatory/analgesic medication, combined with heel pads (see below) may be all that is necessary to relieve pain and to reduce inflammation. If no pain relief has occurred after 2- 3 weeks, however, your doctor may inject either [...] choose the one that fits the best. [place] with your athletic shoes to find a [...] This takes some of the tension off theplantar fascia. Weight Loss: If your weight is [...] chair, barefoot. Place the ankle of the affectedfoot on your opposite knee. Using the same hand as the affected foot, reach across and grab the toes. Flex the ankle toward and pull the toes toward the lindsay. To test the stretch, place the thumb [...] and repeat the exercise. documented in this encounterKnox Community Hospital01-09-2025 NoteHNO ID: [id number] Author: SRINATH SUMMERS, ? Service: ? Author [...] hours as needed for wheezing/shortness of breath. lmpipjzygoq-zaukvnjbb-vhhykdpd (TRELEGY ELLIPTA) 100-62.5-25 mcg inhalation powder Inhale [...] [Meperidine* Unknown Lipitor [Atorvastat* (more content not included)...[facility] 05-19-20[facility] History of Present illness Narrative* Srinath Summers - 05/19/2024 11:04 AM EST Initial Podiatric Office Visit: Chief Complaint: This [...] hours as needed for wheezing/shortness of breath. lmgyzmwmdxl-fmqlvcgth-obuubuoh (TRELEGY ELLIPTA) 100-62.5-25 mcg inhalation powder Inhale 1 Puff asinstructed once daily. cholecalciferol, Vitamin D3, (VITAMIN D3) 1,250 mcg (50,000 unit) cap capsule Take 1 capsule by mouth one time a week. ipratropium-albuterol (DUONEB) 0.5 mg-3 mg(2.5 mg base)/3 mL nebu Inhale 3 mL as instructed every 4hours as needed for wheezing/shortness of breath. nitroglycerin [...] with supportive insoles. No barefoot walking. Patient alsogiven written instructions on how to correctly perform the stretching of the achilles tendon/calf st retches, and the heel spur/plantar fasciitis regimen. 3. Patient advised to seek wide, deep toe box, accomodative, comfortable, lace- up, athletic/walkingtype footwear that includes motion control characteristics for [...] steroid. Patient declined. Srinath Summers DPM Podiatry [address] [facility] [address] Dept: [phone] Dept * Radha Cosme MA - 05/19/2024 10:41 AM EST AMB ROOMING INTAKE FLOWSHEET DATA Pain Pain Location: Foot-Left Description: Sharp, Throbbing Duration Amount of Time: 1 Duration Units: Months Frequency: Intermittent Intervention/Comfort measure: Medication Patient presents with: Left Foot - Heel/foot radiating up left leg, Pain Radha Cosme MA documented in this encounterKnox Community Hospital01-09-2025 NoteHNO ID: [id number] Author: RADHA COSME MA Service: ? Author Type: Package Wrapper Type: Progress Notes Filed: 05/19/2024 11:14 Note Text: AMB ROOMING INTAKE FLOWSHEET DATA Pain Pain Location: Foot-Left Description: Sharp, Throbbing Duration Amount of Time: 1 Duration Units: Months Frequency: Intermittent Intervention/Comfort measure: Medication Patient presents with: Left Foot - Heel/foot radiating up left leg, Pain Radha Cosme [facility]01-09-2025 History of Present illness Narrative* Stephanie Reynolds RT(R) - 05/19/2024 10:10 AM EST Radiology Service Progress Note PATIENT [...] PATIENT PRESENTS WITH AN IMPLANTABLE OR ATTACHED FLIGHT TEST SHOP MECHANIC: No RADIOLOGY DEPARTMENT: General X-ray: Exam(s) Completed: Lower Extremity X- Ray(s): Foot, Left and Wt. Bearing PERIPHERAL IV DATA: Not applicable SIGNED BY: RT Demetris(Maria Elena) May 19, 2024 4:41 PM documented in this encounterKnox Community Hospital01-09-2025 NoteHNO ID: [id number] Author: STEPHANIE REYNOLDS RT(Maria Elena) Service: ? [...] PATIENT PRESENTS WITH AN IMPLANTABLE OR ATTACHED FLIGHT TEST SHOP MECHANIC: No RADIOLOGY DEPARTMENT: General X-ray: Exam(s) Completed: Lower Extremity X-Ray(s): Foot, Left and Wt. Bearing PERIPHERAL IV DATA: Not applicable SIGNED BY: RT Demetris(R) May 19, 2024 4:41 [facility]01-03-2025 Telephone encounter Note* Telephone Encounter - Peterson Lorenzana LPN - 05/13/2024 7:28 AM EST Prescription Refill Information The patient has been [...] Lorenzana LPN May 13, 2024 7:30 AM [facility]01[facility] Miscellaneous Notes* Telephone Encounter - Peterson Lorenzana LPN - 05/13/2024 7:28 AM EST Prescription Refill Information The patient has been [...] 13, 2024 7:30 AM documented in this encounterKnox [facility] Hospital01-03-2025 Telephone encounter Note * Telephone Encounter - Peterson Lorenzana LPN - 05/13/2024 7:25 AM EST Prescription Refill Information The patient has been [...] Lorenzana LPN May 13, 2024 7:27 AM [facility] Miscellaneous Notes* Telephone Encounter - Peterson Lorenzana LPN - 05/13/2024 7:25 AM EST Prescription Refill Information The patient has been [...] 13, 2024 7:27 AM documented in this encounterKnox Community Hospital11-27-2024 Instructions* Patient Instructions* Andry Jean-Baptiste MD - 04/06/2024 12:13 PM EST Discussed placing soap bar at the end of the bed and taking 4 ounces of tonic water before bed. documented in this encounterKnox Community Hospital11-27-2024 NoteHNO ID: [id number] Author: ANDRY JEAN-BAPTISTE MD Service: ? Author Type: Physician Type: Progress Notes Filed: 04/06/2024 12:47 Note Text: Chief Complaint Patient presents with: ER F/U HPI Tara Arellano is a 68 year old male who presents here today for [facility] ER follow up Patient was in [facility] ER on 03/29/2024 for lower extremity injury [...] hours as needed for wheezing/shortness of breath. ttfquqbcios-cghakqnvv-hjdxntfz (TRELEGY ELLIPTA) 100-62.5-25 mcg inhalation powder Inhale 1 Puff as (more content not included)...[facility] 04-06-2024 History of Present illness Narrative* Andry Jean-Baptiste MD - 04/06/2024 11:20 AM EST Images from the original note were not included. Chief Complaint Patient presents with: ER F/U HPI Tara Arellano is a 68 year old male who presents here today for [facility] ER follow up Patient was in [facility] ER on 03/29/2024 for lower extremity injury [...] hours as needed for wheezing/shortness of breath. fzvbwzfaqeh-huzorueto-rhcnemvs (TRELEGY ELLIPTA) 100-62.5-25 mcg inhalation powder Inhale 1 Puff asinstructed once daily. cholecalciferol, Vitamin D3, (VITAMIN D3) [...] 4hours as needed for wheezing/shortness of breath. nitroglycerin [...] Discontinued Pneumococcal Vaccine: 65+ Discontinued Data reviewed [facility] report form 03/29/2024. A/P ASSESSMENT/PLAN: 1. [...] Jun Andry Jean-Baptiste MD documented in this encounterKnox Community Hospital11-25-2024 NoteHNO ID: [id number] Author: ELO SIMPSON RN Service: ? Author [...] Urgent care / Express care Telehealth Nurse inspector precision assembly or Medicare provider nurse triage line Contact made with patient: No, Chart review only. Signature: Elo Simpson RNKeenan Private Hospital11-25-2024 History of Present illness Narrative* Elo Simpson RN - 04/04/2024 4:43 PM EST AC SANDEE RN Patient identified by name and [...] 2. Anemia OTHER FINDINGS/SUMMARY: Patient Attributed To: QAE Payer: Temo RODRIGUEZ Action Taken: Referrals/Routed: none [...] Urgent care / Express care Telehealth Nurse inspector precision assembly or Medicare provider nurse triage line Contact made with patient: No, Chart review only. Signature: Elo Simpson RN documented in this encounterKnox Community Hospital11-25-2024 NotePatient Outreach ([facility]) JONATHANTARA Alfonzo ([id number]) 1955 Date Time Provider Department 04/04/24 [facility] [place] today, we recorded the following information about you: Elo Simpson RN 04/04/2024 4:52 PM Signed AC SANDEE RN Patient identified by name and [...] 2. Anemia OTHER FINDINGS/SUMMARY: Patient Attributed To: BRIANNECasey Payer: Temo RODRIGUEZ Action Taken: Referrals/Routed: none [...] Urgent care / Express care Telehealth Nurse inspector precision assembly or Medicare provider nurse triage line Contact [...] Assessed Reason for Visit: ACM SANDEE RN [[id number]] Cmt: No action needed. Prescriptions as of 04/04/2024 - albuterol HFA (PROVENTIL HFA, VENTOLIN HFA) 90 mcg/actuation inhaler Inhale 2 Puffs as instructed every 6 hours as needed for wheezing/shortness of breath. - rviyqtbnszu-nnenuvihp-qxbjmmtm (TRELEGY ELLIPTA) 100-62.5-25 mcg inhalation powder Inhale [...] Chronic abdominal pain [R10.9 (more content not included)...[facility]11-20[facility]2024 NoteHNO ID: [id number] Author: HE MARTIN LPN Service: ? Author Type: LICENSED NURSE Type: Progress Notes Filed: 03/30/2024 07:12 Note Text: Scan on 03/29/2024 8:44 AM by Solomon Mitchell PA-C: Consultation - Emergency MedicineKeenan [facility]11-20-2024 History of Present illness Narrative* He Martin LPN - 03/30/2024 7:12 AM EST Scan on 03/29/2024 8:44 AM by Solomon Mitchell PA-C: Consultation - Emergency Medicine documented in this encounterKnox Community Hospital10-07-2024 Telephone encounter Note * Telephone Encounter - Ileana Landin OCCA - 02/15/2024 9:54 AM EDT Prescription Refill Information The patient has been [...] ANUJ Pollack February 15, 2024 9:54 AM [facility]10-07[facility] Miscellaneous Notes* Telephone Encounter - Ileana Landin OCCA - 02/15/2024 9:54 AM EDT Prescription Refill Information The patient has been [...] 15, 2024 9:54 AM documented in this encounterKnox Community Hospital09-10-2024 Telephone encounter Note * Telephone Encounter - Gwen Hernandez LPN - 01/19/2024 8:30 AM EDT [facility] 07/23/23 Patient phones requesting refills as follows: Requested Prescriptions Pending Prescriptions Disp Refills ntwmxkpnvow-kenbrtsva-inyczpfp (TRELEGY ELLIPTA) 100-62.5-25 mcg inhalation powder 1 Each 5 Sig: Inhale 1 Puff as instructed once daily. Please review and advise. Gwen Hernandez LPN [facility]09-10-20[facility] Miscellaneous Notes* Telephone Encounter - Gwen Hernandez LPN - 01/19/2024 8:30 AM EDT [facility] 07/23/23 Patient phones requesting refills as follows: Requested Prescriptions Pending Prescriptions Disp Refills pimkrfbaghl-vyehrmucy-zxbacsqn (TRELEGY ELLIPTA) 100-62.5-25 mcg inhalation powder 1 Each 5 Sig: Inhale 1 Puff as instructed once daily. Please review and advise. Gwen Hernandez LPN documented in this encounterKnox Community Hospital09-05-2024 Telephone encounter Note * Telephone Encounter - Andry Jean-Baptiste MD - 01/14/2024 4:40 PM EDT The following approved medication requests have been transmitted electronically. Requested Prescriptions Signed Prescriptions Disp Refills cholecalciferol, Vitamin D3, (VITAMIN D3) 1,250 mcg (50,000 unit) cap capsule 12 capsule 3 Sig: Take 1 capsule by mouth one time a week. Authorizing Provider: ANDRY JEAN-BAPTISTE MD [facility]09-05-[facility] Miscellaneous Notes* Telephone Encounter - Andry Jean-Baptiste MD - 01/14/2024 4:40 PM EDT The following approved medication requests have been transmitted electronically. Requested Prescriptions Signed Prescriptions Disp Refills cholecalciferol, Vitamin D3, (VITAMIN D3) 1,250 mcg (50,000 unit) cap capsule 12 capsule 3 Sig: Take 1 capsule by mouth one time a week. Authorizing Provider: ANDRY JEAN-BAPTISTE MD * Telephone Encounter - Peterson Lorenzana LPN - 01/14/2024 3:29 PM EDT Prescription Refill Information The patient has been [...] 14, 2024 3:29 PM documented in this encounterKnox Community Hospital09-05-2024 Telephone encounter Note * Telephone Encounter - Peterson Lorenzana LPN - 01/14/2024 3:29 PM EDT Prescription Refill Information The patient has been [...] Lorenzana LPN January 14, 2024 3:29 PM [facility]-30[facility] Instructions* Patient Instructions* Irma Perez PA-C - 12/08/2023 9:47 AM EDT Follow up in 6 months for wellness exam. Labs prior. documented in this encounterKnox Community Hospital07-30-2024 History of Present illness Narrative* Irma Perez PA-C - 12/08/2023 9:37 AM EDT Chief Complaint Patient presents with: [...] on File Prior to Visit Medication Sig nsntzrgjjsj-qhviwgrsh-ckknntqu (TRELEGY ELLIPTA) 100-62.5-25 mcg inhalation powder Inhale [...] ANXIETY SCREENING 4. Coronary artery disease involving [place] coronary artery of [place] heart without angina pectoris- ICD9: 414.01, ICD10: I25.10 No new issues [...] DIAGNOSTIC Irma Perez PA-C documented in this encounterKnox Community Hospital06-13-2024 History of Present illness Narrative* Mari Sauceda LPN - 10/22/2023 9:28 AM EDT Scan on 10/20/2023 4:24 PM by ProviderSolomon PA-C: Consultation - Cardiology Mari Sauceda LPN documented in this encounterKnox Community Hospital06-05-2024 History of Present illness Narrative* Maria De Jesus Oswald PA-C - 10/14/2023 9:30 AM EDT Images from the original note were not included. Patient: Tara Arellano PCP: Andry Jean-Baptiste MD CC: hospital follow up HPI: Tara Arellano 67 year old male former 20-yczm-eexr smoker quitting in 2001 with PMH significant for PAD, chronic back pain, GERD, status post gastric bypass for bile acid reflux, migraine headaches, traumatic head injury, childhood asthma, [place] on BiPAP, HLD, COPD and emphysema by CT, granulomatous disease, lung nodules. Patient recently admitted to [facility] from 09/19 - 09/22 secondary to [...] Trelegy and as needed Albuterol. He was instructedto stop the Symbicort, but misunderstood and has been using both Trelegy and Symbicort. Today, patient reports today that he has returned to baseline. Occasional cough productive of clearsputum. No hemoptysis. No wheezing. Exertional dyspnea with [...] Comments Comment:hypotension Pneumococcal 23-Sinan* Swelling Comment:Localized swelling ioypxlrrgha-npnndxbwc-cbytedzn (TRELEGY ELLIPTA) 100-62.5-25 mcg inhalation powder Inhale [...] pain. Max of three in a row ymosybbyvv-cleetmdg-ohuypwxnax (BREZTRI AEROSPHERE) 160-9-4.8 mcg/actuation HFA aerosol inhaler [...] Teri Gross MD CXR 1 view, 09/20/2023 [facility] FINDINGS: There is no demonstrated pleural [...] abdomen. Calcified splenic granulomas. Left renal cyst. Perennial House Manager (topogram) images: No additional findings. ASSESSMENT/PLAN: 1. [...] minutes prior to activities associated with shortness ofbreath, and as needed for rescue relief of shortness of breath or wheezing, up to 4 times daily. Patient declines influenza and pneumonia vaccines. Previously had a severe reaction to pneumococcalvaccine. 2. Lung nodules - ICD9: 793.19, ICD10: R91.[address] chest in June 2024. 3. Granulomatous disease (HCC) - ICD9: 288.1, ICD10: D71 Lung nodules likely represent granulomatous disease as evidenced by calcified right hilar adenopathy and splenic calcifications but in light of his significant smoking history and noncalcified natureof his lung nodules, he will need follow-up [...] De Jesus Oswald PA-C documented in this encounterKnox Community Hospital05-24-2024 History of Present illness Narrative* Andry Jean-Baptiste MD - 10/02/2023 11:49 AM EDT Chief Complaint Patient presents with: Hospital F/U HPI Tara Arellano is a 67 year old male who presents here today for Hospital Discharge Follow up.. Patient with hx of hyperlipidemia, [place], emphysema, GERD, elevated glucose, iron def, carotid disease, vit D, and those as below. Patient was seen at [facility] on 09/20/2023 with c/o shortness of breath [...] steroids and the Levaquin was stopped. Patient wasable to be weaned of O2 prior to discharge on 09/23/2023. Sent home on a prednisone taper. Patient has completed the prednisone. Patient feels his breathing is back to normal. With using theface mask for his nebulizer he has some [...] on File Prior to Visit Medication Sig kahmtdyeysi-jtyadbuhq-ewiffxxm (TRELEGY ELLIPTA) 100-62.5-25 mcg inhalation powder Inhale [...] Take 1 tablet by mouth once daily. hknlldfyzp-nwxstsqt-vrfsxszhoy (BREZTRI AEROSPHERE) 160-9-4.8 mcg/actuation HFA aerosol inhaler [...] 65+ Discontinued Data reviewed Hospital papers from [facility]. A/P ASSESSMENT/PLAN: 1. COPD exacerbation (HCC) - [...] routine. Andry Jean-Baptiste MD [facility] Telephone encounter Note * Telephone Encounter - Ileana Landin OCCA - 09/21/2023 3:08 PM EDT TC to patient who verbalized understanding of below. ANUJ Pollack [facility]05-13-2024 Miscellaneous Notes* Telephone Encounter - Ileana Landin OCCA - 09/21/2023 3:08 PM EDT TC to patient who verbalized understanding of below. ANUJ Pollack * Telephone Encounter - Lew Bird APRN.CNP - 09/21/2023 3:02 PM EDT Please let patient know their xray is normal. documented in this encounterKn[facility]05-[facility]24 Telephone encounter Note * Telephone Encounter - Lew Bird APRN.CNP - 09/21/2023 3:02 PM EDT Please let patient know their xray is normal. [facility] Telephone encounter Note* Telephone Encounter - Radha Ramires MA - 09/21/2023 9:54 AM EDT Spoke to patient's , she was notified of results and verbalized understanding. states that patient is currently admitted to [facility] for RSV Radha Ramires MA [facility]05-13-[facility]24 Miscellaneous Notes* Telephone Encounter - Radha Ramires MA - 09/21/2023 9:54 AM EDT Spoke to patient's , she was notified of results and verbalized understanding. states that patient is currently admitted to [facility] for RSV Radha Ramires MA * Telephone Encounter - Lew Bird APRN.CNP - 09/21/2023 7:59 AM EDT Please let patient know covid/flu/rsv is negative. documented in this encounterKn[facility]05-13-[facility]24 Telephone encounter Note * Telephone Encounter - Lew Bird APRN.CNP - 09/21/2023 7:59 AM EDT Please let patient know covid/flu/rsv is negative. [facility] Discharge summary Author Saray Hutchinson [facility] September 20, 2023 3:52pm Note Date/Time September 20, 2023 1:22p [facility] Medical Records Department [address] [place] [address] Emergency Department Summary 09/20/23 MR#: [id number] Acct: [id number] Name: TARA ARELLANO Rep #:[id number] : 1955 67 From: Saray Hutchinson DO PCP: Dr. Andry Jean-Baptiste MD Status:ADM IN Location: [place] [address] HPI History of Present Illness Chief Complaint: [...] COPD. He does not wear home O2. [facility] Medical History Anxiety Arthritis Asthma Bilateral carotid [...] 77.0 H Lymph % (Auto) 10.1 L [place] % (Auto) 12.3 H Eos % (Auto) [...] Hypoxemia, Respiratory failure, COPD exacerbation Disposition Disposition: [facility] What to do if you have Problems For any increased pain, shortness of breath, bleeding, nausea or vomiting, chestpain, or any unexpected problems, contact your Primary Care Provider. Call [facility] ([phone]) or report to the closest Emergency Room. Call 911 if necessary. 09/20/23 1552 <Electronically signed by Saray Hutchinson DO> Cosigner Signature (if applicable): CC: Dr. Andry Jean-Baptiste MD ~ Signed [facility] Work Phone: 1(352) 240-559305-10-2024 History of Present illness Narrative* Yu Christian RT(R) - 09/18/2023 4:00 PM EDT Radiology [...] PATIENT PRESENTS WITH AN IMPLANTABLE OR ATTACHED FLIGHT TEST SHOP MECHANIC: No RADIOLOGY DEPARTMENT: General X-ray: Exam(s) Completed: Chest X-Ray PERIPHERAL IV DATA: Not applicable SIGNED BY: RT Marimar(Maria Elena) September 18, 2023 3:58 PM documented in this encounterKnox [facility] Hospital05-10-2024 History of Present illness Narrative* Lew Bird APRN.VOLLEYBALL PLAYER - 09/18/2023 3:10 PM EDT Chief Complaint [...] on File Prior to Visit Medication Sig nmiydmkbsts-vuezhpqbj-sspupiys (TRELEGY ELLIPTA) 100-62.5-25 mcg inhalation powder Inhale [...] pain. Max of three in a row enikfjkulv-rblkeoqz-bxpdjwqdvv (BREZTRI AEROSPHERE) 160-9-4.8 mcg/actuation HFA aerosol inhaler [...] Vaccine(2 of 2) due on 08/21/2023 Covid-19 Vaccine(2022- season) due on 04/14/2024 LDL [...] MG/0.5 ML SOLUTION FOR NEBULIZATION Lew Bird APRN.VOLLEYBALL PLAYER documented in this encounterKn[facility]04-30-2024 Telephone encounter Note * Telephone Encounter - Noelle Boateng RN - 09/08/2023 3:22 PM EDT Patient wanting to switch to [facility]. Pharmacy electronically requests the following refill(s) Requested Prescriptions Pending Prescriptions Disp Refills rctqburfuvy-bdtscsijy-gejilnuh (TRELEGY ELLIPTA) 100-62.5-25 mcg inhalation powder 1 Each 5 Sig: Inhale 1 Puff as instructed once daily. Noelle Boatneg RN [facility]04-30-20[facility] Miscellaneous Notes* Telephone Encounter - Noelle Boateng RN - 09/08/2023 3:22 PM EDT Patient wanting to switch to [facility]. Pharmacy electronically requests the following refill(s) Requested Prescriptions Pending Prescriptions Disp Refills yhcanrbyurl-rabqdtbzc-alzqrbvv (TRELEGY ELLIPTA) 100-62.5-25 mcg inhalation powder 1 Each 5 Sig: Inhale 1 Puff as instructed once daily. Noelle Boateng RN documented in this encounterKnox [facility] Hospital04-08-2024 Miscellaneous Notes* Telephone Encounter - Kendrick [...] you. Kendrick Julio LPN. documented in this encounterKnox [facility] Hospital03-14-2024 History of Present illness Narrative* Teri Gross MD - 07/23/2023 1:45 PM EDT Images from the original note were not included. . [facility] [place] Note Patient name: Tara Arellano PCP: Andry Jean-Baptiste MD CC: Follow-up chest imaging HPI: Tara Arellano 67 year old male former 28-aape-whpp smoker quitting in 2001 with PMH significant [...] shows no change compared to CT obtained [facility]. He has been rather ill over [...] k/uL 1.49 Monocytes % % 8.7 Abs [place] <0.87 k/uL 0.54 Eosinophils % % 3.2 Abs Eosin <0.46 k/uL 0.20 Basophils % % 1.4 Abs Baso <0.11 k/uL 0.09 Immature Granulocytes % % 0.3 Abs Immature Gran <0.10 k/uL <0.03 NRBC /100 WBC 0.0 Absolute nRBC <0.01 k/uL <0.01 Diff Type Auto Imaging / Diagnostic Studies: DATE OF EXAM: Jun 16 2023 8:25AM [facility] 0541 - CT CHEST WO IVCON / EXAMINATION: [...] node Compared images to CT done at [facility]. No change or new findings PAST MEDICAL [...] Take 1 tablet by mouth once daily. znpagtasysi-nwwmhlirh-jeeybrzi (TRELEGY ELLIPTA) 100-62.5-25 mcg inhalation powder Inhale 1 Puff asinstructed once daily. ipratropium-albuterol (DUONEB) 0.5 mg-3 mg(2.5 mg base)/3 mL nebu Inhale 3 mL as instructed every 4hours as needed for wheezing/shortness of breath. zftjebpokp-kedxvjse-thxyfygnsx (BREZTRI AEROSPHERE) 160-9-4.8 mcg/actuation HFA aerosol inhaler [...] of smoking cessation Teri Gross MD [facility] [place] documented in this encounterKnox [facility] Hospital02-12-2024 Miscellaneous Notes* Telephone Encounter - Teri Gross MD - 06/22/2023 4:13 PM EST Spoke to , Sola regarding chest CT results. Able to directly compare images from [facility] with recent image and there is no change. He will be due for follow-up CT in one year. documented in this encounterKnox Community Hospital02-08-2024 Miscellaneous Notes* Telephone Encounter - Gwen Hernandez LPN - 06/18/2023 8:38 AM EST See telephone encounter with THAO Hernandez LPN * Telephone Encounter - Noelle Boateng RN - 06/17/2023 4:21 PM EST Patient's called again asking about the CT results. Noelle Botaeng RN * Telephone Encounter - Chayo Rodríguez LPN - 06/17/2023 9:05 AM EST Patients called. Verified name and date of of patient. The CT results have been seen butthey would like explanation of results especially regarding Borderline enlarged right paratracheallymph node. Chayo Rodríguez LPN documented in this encounterKnox Community Hospital02-07-2024 Miscellaneous Notes* Telephone Encounter - Teri Gross MD - 06/17/2023 5:20 PM EST Left voice mail message with results. The paratracheal node is likely due to granulomatous disease.I do not personally remember a nodule in the RUL on CT from [facility]. I will need to directly compare the films but will not have access until I return to [place] on Thursday. Left message thatI will call on Thursday. documented in this encounterKnox Community Hospital02-06-2024 History of Present illness Narrative* Chayo Gomze RT(R) - 06/16/2023 8:00 AM EST Radiology [...] PATIENT PRESENTS WITH AN IMPLANTABLE OR ATTACHED FLIGHT TEST SHOP MECHANIC: No RADIOLOGY DEPARTMENT: CT; Exam(s) Completed: Chest PERIPHERAL IV DATA: Not applicable SIGNED BY: RT Shelton(R) June 16, 2023 4:10 PM documented in this encounterKnox Community Hospital12-21-2023 Miscellaneous Notes* Telephone Encounter - Zohaib Jalloh - 04/30/2023 11:56 AM EST Talked to patient and he verbally understands his recent labs were ok. Zohaib Jalloh * Telephone Encounter - Andry Jean-Baptiste MD - 04/30/2023 11:28 AM EST Let pt know recent labs were ok. documented in this encounterKnox Community Hospital12-19-2023 History of Present illness Narrative* Billy [...] 28, 2023 12:19 PM documented in this encounterKnox Community Hospital12-19-2023 Instructions* Patient Instructions* Andry Jean-Baptiste MD - 04/28/2023 11:53 AM EST Hold your calcium and iron tabs while your on the antibiotic for the 10 days. documented in this encounterKnox Community Hospital12-19-2023 History of Present illness Narrative* Andry [...] Take 1 tablet by mouth once daily. zyktpuejdr-ovzuzkpk-qcauogmywc (BREZTRI AEROSPHERE) 160-9-4.8 mcg/actuation HFA aerosol inhaler [...] exam. Andry Jean-Baptiste MD documented in this encounterKnox Community Hospital12-07-2023 History of Present illness Narrative* Teri Gross MD - 04/16/2023 3:15 PM EST Images from the original note were not included. . 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 He has exposure to inez and damp [...] of his CT of the chest from [facility] in February that shows mild emphysema [...] by mouth three times daily as needed. 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 Willard [facility], Social history, family history and surgical [...] as needed 2. Former cigarette smoker Former 09-qnet-bxbp smoker having quit in 2001 with sequelae of emphysema -Patient does not qualify for lung cancer screening based on duration of his smoking cessation -Continue abstinence 3. Groundglass opacity on chest imaging -Surveillance CT at 3 months to look for clearance Teri Gross MD [facility] [place] documented in this encounterKnox Community Hospital12-07-2023 Nurse Note* Gwen Hernandez LPN - 04/16/2023 3:01 PM EST Intake information documented in the prior visit with JOSEPH Butt today. documented in this encounterKnox Community Hospital12-05-2023 Miscellaneous Notes* Addendum Note - Lew Bird APRN.CNP - 04/14/2023 8:01 AM ESTAddended by: LEW BIRD on: 04/14/2023 08:01 AM Modules accepted: Orders documented in this [facility]12-05-2023 History of Present illness Narrative* Lew [...] Influenza Vaccine(1) due on 01/09/2023 Covid-19 Vaccine( - 2022- season) due on 01/09/2023 DTaP,Tdap,Td Vaccine(2 - [...] - CONSULT TO PULMONARY MEDICINE Lew Bird APRN.VOLLEYBALL PLAYER documented in this encounterKnox Community Hospital11-10-2023 Discharge summary Author Thor Oswald [facility] March 20, 2023 2:12pm Note Date/Time March 20, 2023 11:59am [facility] Medical Records Department [address] [place] [address] Emergency Department Summary 03/20/23 MR#: [id number] Acct: [id number] Name: TARA ARELLANO Rep #:[id number] : 1955 67 From: Thor Oswald MD [...] was seen here as well as the [facility] and diagnosed with pneumonia, placed on antibiotics [...] the time. It is nonlateralizing and nonradiating. [facility] Medical History Anxiety Arthritis Asthma Bilateral carotid [...] superinfection and have him follow-up with his grape crusher Dr. Dumas. Lab Data Attestation: I reviewed the patient's lab results. Labs: Laboratory Results - last 24 hr 03/20/23 12:13 WBC 6.7 RBC 4.31 L Hgb 13.3 Hct 40.1 MCV 93.0 MCH 30.9 MCHC 33.2 RDW Std Deviation 43.8 RDW Coeff of Dari 12.8 Plt Count 294 MPV 8.1 Immature Gran % (Auto) 2.500 H Neut % (Auto) 60.5 Lymph % (Auto) 22.7 [place] % (Auto) 8.8 Eos % (Auto) 4.5 [...] your Primary Care Provider. Call [facility] ([phone]) or report to the closest Emergency Room. Call 911 if necessary. 03/20/23 1412 <Electronically signed by Thor Oswald MD> Cosigner Signature (if applicable): CC: Dr. Andry Jean-Baptitse MD; Dr. Kirk Dumas MD ~ Signed [facility] Work Phone: [phone]) 183-111711-10-2023 Miscellaneous Notes* Telephone Encounter - Sushma Castillo [...] evaluated. Sushma Castillo RN documented in this encounterKnox Community Hospital11-03-2023 Miscellaneous Notes* Telephone Encounter - Andry [...] pt. Gina Floyd Ma documented in this encounterKnox Community Hospital11-03-2023 Miscellaneous Notes* Telephone Encounter - Carisa Kumar PA-C - 03/13/2023 8:05 AM EDT error documented in this encounterKnox Community Hospital10-13-2023 History of Present illness Narrative* Lew Bird APRN.VOLLEYBALL PLAYER - 02/20/2023 2:10 PM EDT Chief Complaint Patient presents with: ED Follow-up: Pneumonia HPI Tara Arellano is a 67 year old male who presents here today for Above Complaints.. Patient presents for pneumonia follow up. Patient was initially on zpak then transitioned to doxycycline and augmentin. Patient reports he is feeling better and is senior living done with his antibiotics. Patient was also [...] W/O VAGOTOMY 2006 for reflux HEART CATHETERIZATION 2/29/09 <10% stenosis prox, mid, and distal LAD HEART CATHETERIZATION 09/09/2016 no disease No Stents LEFT HEART CATH,PERCUTANEOUS 10/28/2021 minimal disease less than 30% STRESS TEST 07/02/2016 normal UNLISTED LAPAROSCOPIC PROCEDURE STOMACH 04/18/2019 Dr. Wilalrd Family History FAMILY HISTORY Problem Relation Age [...] completed. Lew Bird APRN.JEAN documented in this encounterKnox Community Hospital10-09-2023 Instructions* Patient Instructions* Eulalia Wells APRN.CNP [...] stiffness, or feel confused. documented in this encounterKnox Community Hospital10-09-2023 History of Present illness Narrative* Eulalia Wells APRN.JEAN - 02/16/2023 2:28 PM EDT This note [...] history is provided by the patient. No fish hatchery assistant was used. Cough This is a new [...] ICD10: J18.9 Was treated and seen @ [facility] on 02/09/23 Reviewed imaging from [facility] CXR revealed right lower lobe pneumonia Patient was placed on Zpack Review of patients PMH and allergies, He really should have been prescribed dual coverage Will place him on Augmentin and Doxy He has appt for f/u with Adam this Thursday RX Prednisone taper Eulalia Wells APRN.JEAN documented in this encounterKnox Community Hospital09-19-2023 Miscellaneous Notes* Telephone Encounter - Kendrick Julio LPN - 01/27/2023 9:01 AM EDT Patient phones requesting refills as follows: Requested Prescriptions Pending Prescriptions Disp Refills cholecalciferol, Vitamin D3, (VITAMIN D3) 1,250 mcg (50,000 unit) cap capsule 12 capsule 3 Sig: Take 1 capsule by mouth one time a week. [facility] 09/17/22 03/16/23 [facility]INA Please review and advise. Kendrick Julio LPN documented in this encounterKnox Community Hospital09-19-2023 Miscellaneous Notes* Telephone Encounter - Kendrick Julio LPN - 01/27/2023 9:00 AM EDT Patient phones requesting refills as follows: Requested Prescriptions Pending Prescriptions Disp Refills triamcinolone acetonide topical 0.5 % ointment 30 g 1 Sig: Apply to affected area twice daily. May use up to 2 weeks. [facility] 09/17/22 03/16/23 AMINA Please review and advise. Kendrick Julio LPN documented in this encounterKnox Community Hospital05-10-2023 Instructions* Patient Instructions* Gloria Chavez APRN.JEAN - 09/17/2022 12:11 PM EDT Start the triamcinolone ointment to the leg twice daily for up to two weeks. If still present, takea 1 week break, and then start using for two more weeks. documented in this encounterKnox Community Hospital05-10-2023 History of Present illness Narrative* Gloria Chavez APRN.JEAN - 09/17/2022 11:54 AM EDT This is [...] intermittent itchy rash on the left anterior lindsay. Gets very itchy. Has used a cream [...] distress, well-hydrated, well nourished.. Skin: left anterior lindsay with large area of redness, scratch jose, [...] as needed for worsening/no improvement. Gloria Chavez APRN.VOLLEYBALL PLAYER documented in this encounterKnox Community Hospital04-28-2023 History of Present illness Narrative* Irma [...] PANEL, NONFASTING 2. Coronary artery disease involving n[place] coronary artery of nis[place]ally heart without angina pectoris- ICD9: 414.01, ICD10: [...] SERUM Follow up in 6 months for welltrisha. Labs prior. Return sooner prn. Irma Perez PA-C documented in this encounterKnox Community Hospital03-06-2023 Instructions* Patient Instructions* Lew Bird APRN.CNP - 07/14/2022 9:25 AM EST Schedule with ENT Follow up as necessary documented in this encounterKnox Community Hospital03-06-2023 History of Present illness Narrative* Lew [...] ICD10: K13.79 -Consult to ENT Lew Bird APRN.VOLLEYBALL PLAYER documented in this encounterKnox Community Hospital02-13-2023 Miscellaneous Notes* Telephone Encounter - Radha [...] needs diagnosis. Please advise documented in this encounterKnox Community Hospital01-16-2023 History of Present illness Narrative* Ronak [...] 01/12/2013 06/24/2018 10/07/2018 12/23/2018 01/18/2019 02/07/2019 10/01/2019 08/28/202009/1309/13/2020 09/28/2020 11/16/2020 11/20/2020 03/01/2021 WBC 3.70 - [...] 1.61 1.25 1.05 1.42 1.73 1.66 1.73 [place]% % 9.2 6.8 13.4 8.6 6.4 6.3 9.9 Abs [place] <0.87 k/uL 0.43 0.30 0.56 0.37 0.29 [...] Lymph 0.84 - 2.85 thou/cmm 1.22 Abs. [place] 0.30 - 0.82 thou/cmm 0.32 Abs. Eosin [...] 4.00 k/uL 1.73 1.53 1.55 1.17 1.59 [place]% % 9.9 8.4 7.1 7.7 9.9 Abs [place] <0.87 k/uL 0.77 0.40 0.33 0.34 0.46 [...] No jaundice or rash. No petechiae. 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 No focal motor [...] with more than 50% of the total iakq-om-bvhc time of the visit in reviewing test results, plan of care and coordination of care Ronak Stauffer DO documented in this encounterKnox Community Hospital01-05-2023 Instructions* Patient Instructions* Andry Jean-Baptiste MD - 05/15/2022 1:51 PM EST Tara take the Prednisone 20 mg two a day Thur (today), Fri, Sat, Sun and one on Mon. documented in this encounterKnox Community Hospital01-05-2023 History of Present illness Narrative* Andry [...] pain 12/18/2017 With headache's: Seeing Dr. Hogan NIDIA (obstructive sleep apnea) 08/19/2016 Mild per study [...] 20 mg two a day Thur, Fri, Thu, Thu and one on Mon. Requested Prescriptions Signed [...] routine. Andry Jean-Baptiste MD documented in this encounterKnox Community Hospital12-22-2022 Miscellaneous Notes* Addendum Note - Radha Bishop APRN.CNP - 05/01/2022 3:00 PM ESTAddended by: RADHA BISHOP on: 05/01/2022 03:00 PM Modules accepted: Orders documented in this encounterKnox Community Hospital12-22-2022 History of Present illness Narrative* Radha Bishop APRN.CNP - 05/01/2022 2:49 PM EST CC: Patient [...] Patient agreeable to treatment plan. Radha Bishop APRN.JEAN documented in this encounterKnox Community Hospital12-06-2022 Instructions* Patient Instructions* Srinath Summers - 04/15/2022 8:42 AM EST Do not remove nail spicule Let it grow out Check circulation Once the nail grows out, I can then remove Monitor for any signs of redness or drainage as this can lead to ingrown documented in this encounterKnox Community Hospital12-06-2022 History of Present illness Narrative* Srinath [...] dremmel. Srinath Summers DPM Podiatry [address] [facility] [address] Dept: [phone] Dept * Suellen Wakefield RN - 04/15/2022 [...] back and bothering him. documented in this encounterKnox Community Hospital10-28-2022 Instructions* Patient Instructions* Andry Jean-Baptiste MD - 03/07/2022 8:08 AM EDT Consider getting the shingrix vaccine for the prevention of shingles from a local pharmacy Consider having alternates added to your power of city attorney for health care formes. Please get labs done on or after 08/22/2022 prior to your next visit. We will try a new medication for lowering the bad cholesterol (LDL) called Zetia) documented in this encounterKnox Community Hospital10-28-2022 History of Present illness Narrative* Andry [...] HX 09/11/2015 revision L4-L5 disectomy CHOLECYSTECTOMY 2002 COLONOSCOP W/ OR W/O [facility] SPEC 09/01/2018 Colonoscopy COLONOSCOP W/ OR W/O [facility] SPEC 10/23/2020 COLONOSCOPY 11/05/2011 repeat 10 yrs [...] Lymph 1.00 - 4.00 k/uL 1.53 1.17 [place]% % 8.4 7.7 Abs [place] <0.87 k/uL 0.40 0.34 Eosin% % 6.1 [...] Negative Negative Ketones, Urine Negative Negative Specific [place], Ur 1.005 - 1.030 1.017 Hemoglobin/Blood,Ur Negative [...] and regular exercise - Patient was counseled ebam-na-mruz by myself (the billing provider) for the [...] intake diet. 3. Coronary artery disease involving n[place] coronary artery of n[place] heart without angina pectoris- ICD9: 414.01, ICD10: [...] ICD10: G47.33 - wearing CPAP and seeing [place] [facility]. 12. Malabsorption syndrome - ICD9: [...] which included preparing to see the patient, wceq-wy-fzag patient care, completing clinical documentation, performing a medically appropriate examination, counseling and educating the patient/family/caregiver and ordering medications, tests, or procedures. Andry Jean-Baptiste MD documented in this encounterKnox Community Hospital09-19-2022 Miscellaneous Notes* Telephone Encounter - Andry [...] advise. Kendrick Julio LPN documented in this encounterKnox Community Hospital07-07-2022 Miscellaneous Notes* Telephone Encounter - Radha Parmar LPN - 11/14/2021 4:29 PM EDT . documented in this encounterKnox Community Hospital07-06-2022 History of Present illness Narrative* Angelica Zurita APRN.VOLLEYBALL PLAYER - 11/13/2021 9:38 AM EDT Chief Complaint [...] 1.61 1.25 1.05 1.42 1.73 1.66 1.73 [place]% % 9.2 6.8 13.4 8.6 6.4 6.3 9.9 Abs [place] <0.87 k/uL 0.43 0.30 0.56 0.37 0.29 [...] Lymph 0.84 - 2.85 thou/cmm 1.22 Abs. [place] 0.30 - 0.82 thou/cmm 0.32 Abs. Eosin [...] 1.00 - 4.00 k/uL 1.73 1.53 1.55 [place]% % 9.9 8.4 7.1 Abs [place] <0.87 k/uL 0.77 0.40 0.33 Eosin% % [...] as necessary for today's visit. Angelica Zurita APRN.VOLLEYBALL PLAYER documented in this encounterKnox Community Hospital06-21-2022 Miscellaneous Notes* Telephone Encounter - Radha Cosme MA - 10/29/2021 7:05 AM EDT Patient active [employer]. Patient notified via [employer] (formerly [employer]) message. Radha Cosme MA * Telephone Encounter - Andry Jean-Baptiste MD - 10/28/2021 10:31 PM EDT Let patient know rib x-rays were ok. documented in this encounterKnox Community Hospital06-21-2022 History of Present illness Narrative* He Martin LPN - 10/29/2021 6:36 AM EDT Scan on 10/28/2021 4:20 PM by External Provider: Cardiac Cath documented in this encounterKnox Community Hospital06-16-2022 Miscellaneous Notes* Telephone Encounter - Brigitte [...] etc. Brigitte Bishop MA documented in this encounterKnox Community Hospital06-16-2022 History of Present illness Narrative* Nanette [...] 24, 2021 11:56 AM documented in this encounterKnox Community Hospital06-16-2022 History of Present illness Narrative* Andry [...] the remote past per Dr. Tovar in [place]. Left side of chest - upper - [...] 03/15/2019 Results NM CARDIAC PERF STRESS/PHARM (Order [id number]) Patient Info Patient Name Sex Tara Arellano ([id number]) Male 1955 04/26/2021 2:57 PM - Radiology, [...] 60 minutes later. See administered doses below. [facility] Date of service: 04/26/2021 10:27:45 AM Indication: [...] evidence of scarring. Final Stress ECG Report: [facility] Date of service: 04/26/2021 10:27:45 AM Ordering physician: ANDRY JEAN-BAPTISTE Specialist: Racheal Anaya Bioinformatics Analyst: Radha [facility] Stress ECG interpreting physician: Tristen Blair DO PATIENT: Name: MR. TARA ARELLANO Age: [...] 139/55 mmHg. The double product achieved was [id number]. Indication: Chest pressure / Chest tightness Medical [...] / 55 mmHg Rate Pressure Product (RPP): 50006 Stress Exercise Observations: Reason for test termination: end of protocol Symptoms during test: SOB ST segment and T wave changes: No ST changes Arrhythmias: No arrhythmias Final Stress [employer] Report: [facility] Date of service: 04/26/2021 10:27:45 AM Supervising physician: Tristen Blair DO PATIENT: Name: MR. TARA ARELLANO Age: 65 years Gender: M The supervising physician was present during the stress procedure. Final A/P ASSESSMENT/PLAN: 1. Coronary artery disease involving [place] coronary artery of [place] heart without angina pectoris- ICD9: 414.01, ICD10: [...] routine And[facility] Jean-Baptiste [facility]* Telephone Encounter - Teri Noonan Ma - 09/05/2021 8:21 AM EDT Left detailed message on spouse confidential vm Teri Noonan Ma * Telephone Encounter - Andry Jean-Baptiste MD - 09/04/2021 8:50 PM EDT Let patient know us of neck showed no increase in narrowing of the neck arteries from last study [id number]. Not changes in treatment at this time. [facility] Miscellaneous Notes* Addendum Note - Andry [...] PM EDT Please print patient mails to [facility] Teri Noonan Ma * Telephone Encounter [...] No Andry Jean-Baptiste MD [facility] of Past illness Narrative* Problem Noted Date Resolved Date Hemorrhage of rectum and anus Diaphragmatic hernia with obstruction 01/13/2013 documented as of this encounter (statuses as of 09/03/2021) [facility] Narrative* Problem Noted Date Resolved Date Hemorrhage of rectum and anus Diaphragmatic hernia with obstruction 01/13/2013 documented as of this encounter (statuses as of 09/05/2021) [facility] Narrative* Problem Noted Date Resolved Date Hemorrhage of rectum and anus Diaphragmatic hernia with obstruction 01/13/2013 documented as of this encounter (statuses as of 10/17/2021) [facility] Narrative* Problem Noted Date Resolved Date Hemorrhage of rectum and anus Diaphragmatic hernia with obstruction 01/13/2013 documented as of this encounter (statuses as of 10/24/2021) [facility] Narrative* Problem Noted Date Resolved Date Hemorrhage of rectum and anus Diaphragmatic hernia with obstruction 01/13/2013 documented as of this encounter (statuses as of 10/25/2021) [place] [address]-05-2013 History of Past illness Narrative* Problem Noted Date Resolved Date Hemorrhage of rectum and anus Diaphragmatic hernia with obstruction 01/13/2013 documented as of this encounter (statuses as of 10/29/2021) [place] [address]-05-2013 History of Past illness Narrative* Problem Noted Date Resolved Date Hemorrhage of rectum and anus Diaphragmatic hernia with obstruction 01/13/2013 documented as of this encounter (statuses as of 11/13/2021) [facility]* Problem Noted Date Resolved Date Hemorrhage of rectum and anus Diaphragmatic hernia with obstruction 01/13/2013 documented as of this encounter (statuses as of 11/14/2021) [facility] Narrative* Problem Noted Date Resolved Date Hemorrhage of rectum and anus Diaphragmatic hernia with obstruction 01/13/2013 documented as of this encounter (statuses as of 01/27/2022) [facility]ative* Problem Noted Date Resolved Date Hemorrhage of rectum and anus Diaphragmatic hernia with obstruction 01/13/2013 documented as of this encounter (statuses as of 03/07/2022) [facility]ative* Problem Noted Date Resolved Date Hemorrhage of rectum and anus Diaphragmatic hernia with obstruction 01/13/2013 documented as of this encounter (statuses as of 04/15/2022) [facility]* Problem Noted Date Resolved Date Hemorrhage of rectum and anus Diaphragmatic hernia with obstruction 01/13/2013 documented as of this encounter (statuses as of 05/02/2022) [facility]* Problem Noted Date Resolved Date Hemorrhage of rectum and anus Diaphragmatic hernia with obstruction 01/13/2013 documented as of this encounter (statuses as of 05/16/2022) [facility]* Problem Noted Date Resolved Date Hemorrhage of rectum and anus Diaphragmatic hernia with obstruction 01/13/2013 documented as of this encounter (statuses as of 05/16/2022) [facility]* Problem Noted Date Resolved Date Hemorrhage of rectum and anus Diaphragmatic hernia with obstruction 01/13/2013 documented as of this encounter (statuses as of 05/17/2022) [facility]* Problem Noted Date Resolved Date Hemorrhage of rectum and anus Diaphragmatic hernia with obstruction 01/13/2013 documented as of this encounter (statuses as of 05/24/2022) [facility]* Problem Noted Date Resolved Date Hemorrhage of rectum and anus Diaphragmatic hernia with obstruction 01/13/2013 documented as of this encounter (statuses as of 05/26/2022) [facility]* Problem Noted Date Resolved Date Hemorrhage of rectum and anus Diaphragmatic hernia with obstruction 01/13/2013 documented as of this encounter (statuses as of 06/23/2022) [facility]* Problem Noted Date Resolved Date Hemorrhage of rectum and anus Diaphragmatic hernia with obstruction 01/13/2013 documented as of this encounter (statuses as of 07/14/2022) [facility]* Problem Noted Date Resolved Date Hemorrhage of rectum and anus Diaphragmatic hernia with obstruction 01/13/2013 documented as of this encounter (statuses as of 09/05/2022) [facility]* Problem Noted Date Resolved Date Hemorrhage of rectum and anus Diaphragmatic hernia with obstruction 01/13/2013 documented as of this encounter (statuses as of 09/18/2022) [facility]* Problem Noted Date Diagnosed Date Resolved Date Hemorrhage of rectum and anus 01/13/2013 Diaphragmatic hernia with obstruction 01/13/2013 documented as of this encounter (statuses as of 01/27/2023) [facility]* Problem Noted Date Diagnosed Date Resolved Date Hemorrhage of rectum and anus 01/13/2013 Diaphragmatic hernia with obstruction 01/13/2013 documented as of this encounter (statuses as of 01/27/2023) [facility]* Problem Noted Date Diagnosed Date Resolved Date Hemorrhage of rectum and anus 01/13/2013 Diaphragmatic hernia with obstruction 01/13/2013 documented as of this encounter (statuses as of 02/17/2023) [facility]* Problem Noted Date Diagnosed Date Resolved Date Hemorrhage of rectum and anus 01/13/2013 Diaphragmatic hernia with obstruction 01/13/2013 documented as of this encounter (statuses as of 02/20/2023) [facility]* Problem Noted Date Diagnosed Date Resolved Date Hemorrhage of rectum and anus 01/13/2013 Diaphragmatic hernia with obstruction 01/13/2013 documented as of this encounter (statuses as of 03/13/2023) [facility]* Problem Noted Date Diagnosed Date Resolved Date Hemorrhage of rectum and anus 01/13/2013 Diaphragmatic hernia with obstruction 01/13/2013 documented as of this encounter (statuses as of 03/14/2023) [facility]* Problem Noted Date Diagnosed Date Resolved Date Hemorrhage of rectum and anus 01/13/2013 Diaphragmatic hernia with obstruction 01/13/2013 documented as of this encounter (statuses as of 03/20/2023) [facility]* Problem Noted Date Diagnosed Date Resolved Date Hemorrhage of rectum and anus 01/13/2013 Diaphragmatic hernia with obstruction 01/13/2013 documented as of this encounter (statuses as of 04/14/2023) [facility]* Problem Noted Date Diagnosed Date Resolved Date Hemorrhage of rectum and anus 01/13/2013 Diaphragmatic hernia with obstruction 01/13/2013 documented as of this encounter (statuses as of 04/16/2023) [facility]* Problem Noted Date Diagnosed Date Resolved Date Hemorrhage of rectum and anus 01/13/2013 Diaphragmatic hernia with obstruction 01/13/2013 documented as of this encounter (statuses as of 04/17/2023) [facility]* Problem Noted Date Diagnosed Date Resolved Date Hemorrhage of rectum and anus 01/13/2013 Diaphragmatic hernia with obstruction 01/13/2013 documented as of this encounter (statuses as of 04/29/2023) [facility]* Problem Noted Date Diagnosed Date Resolved Date Hemorrhage of rectum and anus 01/13/2013 Diaphragmatic hernia with obstruction 01/13/2013 documented as of this encounter (statuses as of 05/01/2023) [facility]* Problem Noted Date Diagnosed Date Resolved Date Hemorrhage of rectum and anus 01/13/2013 Diaphragmatic hernia with obstruction 01/13/2013 documented as of this encounter (statuses as of 06/17/2023) [facility]* Problem Noted Date Diagnosed Date Resolved Date Hemorrhage of rectum and anus 01/13/2013 Diaphragmatic hernia with obstruction 01/13/2013 documented as of this encounter (statuses as of 06/18/2023) [facility]* Problem Noted Date Diagnosed Date Resolved Date Hemorrhage of rectum and anus 01/13/2013 Diaphragmatic hernia with obstruction 01/13/2013 documented as of this encounter (statuses as of 06/22/2023) [facility]* Problem Noted Date Diagnosed Date Resolved Date Hemorrhage of rectum and anus 01/13/2013 Diaphragmatic hernia with obstruction 01/13/2013 documented as of this encounter (statuses as of 07/23/2023) [facility]* Problem Noted Date Diagnosed Date Resolved Date Hemorrhage of rectum and anus 01/13/2013 Diaphragmatic hernia with obstruction 01/13/2013 documented as of this encounter (statuses as of 08/17/2023) [facility] Bilateral carotid artery disease, unspecified type (HCC) [facility] Coronary artery disease involving [place] coronary artery of [place] heart without angina pectoris- Primary Exertional chest pain Chest pain, unspecified Left hand pain Pain in limb Left-sided chest wall pain Painful respiration [facility] Iron deficiency anemia secondary to inadequate dietary iron intake- Primary Malabsorption syndrome Unspecified intestinal malabsorption [facility] Vitamin D deficiency Unspecified vitamin D deficiency [facility] Diagnosis Medicare annual wellness visit, initial- Primary Routine general medical examination at a health care facility Mixed hyperlipidemia Coronary artery disease involving [place] coronary artery of [place] heart without angina pectoris Intractable chronic migraine [...] disease of nail [facility] Diagnosis Ingrowing toenail- Primary Ingrowing nail Nail problem Unspecified disease of nail Diminished pulses in lower extremity Other symptoms involving cardiovascular system Tinea pedis of both feet [facility] Diagnosis URI, acute- Primary Acute upper respiratory infections of unspecified site Non-recurrent acute suppurative otitis media of right ear without spontaneous rupture of tympanic membrane [facility] Diagnosis Bronchitis- Primary Bronchitis, not specified as acute or chronic Advance directive discussed with patient Other specified counseling Pulmonary emphysema, unspecified emphysema type (HCC) [facility] Diagnosis Iron deficiency anemia secondary to inadequate dietary iron intake- Primary [facility] Diagnosis Iron deficiency anemia secondary to inadequate dietary iron intake- Primary Malabsorption syndrome Unspecified intestinal malabsorption [facility] Diagnosis Iron deficiency anemia secondary to inadequate dietary iron intake- Primary [facility] Diagnosis Malabsorption syndrome- Primary Unspecified intestinal malabsorption [facility] Diagnosis Oral polyp- Primary [facility] Diagnosis Mixed hyperlipidemia- Primary Coronary artery disease involving [place] coronary artery of [place] heart without angina pectoris Pulmonary emphysema, unspecified [...] of other [facility] Diagnosis Eczema, unspecified type- Primary [facility]* Diagnosis Onset Date Resolution Status Abdominal discomfort chronic Abdominal discomfort chronic Difficulty swallowing chroni c [facility] Work Phone: Evaluation note* Diagnosis Vitamin D deficiency Unspecified vitamin D deficiency documented in this encounter [facility] note* Diagnosis Eczema, unspecified type documented in this encounter [facility] note* Diagnosis Pneumonia of right lung due to infectious organism, unspecified part of lung- Primary documented in this encounter [facility] note* Diagnosis Community acquired pneumonia, unspecified laterality- Primary Pulmonary emphysema, unspecified emphysema type (HCC) documented in this encounter [facility] noteNo assessment information availableWCh[facility] Work [facility]: Evaluation note* Diagnosis Chronic obstructive pulmonary disease, unspecified COPD type (HCC)- Primary Encounter for immunization Need for other specified prophylactic vaccination against single bacterial disease [facility] Diagnosis Chronic obstructive pulmonary disease, unspecified COPD type (HCC) documented in this encounter [facility] note* Diagnosis Asthma-COPD overlap syndrome- Primary Former cigarette smoker Personal history of tobacco use, presenting hazards to health Ground glass opacity present on imaging of lung [facility]* Diagnosis URI, acute- Primary Acute upper respiratory infections of unspecified site SOB (shortness of breath) Shortness of breath Epigastric pain Abdominal pain, epigastric Left-sided chest pain documented in this encounter [facility] note* Diagnosis Asthma-COPD overlap syndrome (HCC)- Primary Lung nodules Other nonspecific abnormal finding of lung field Granulomatous disease (HCC) Functional disorders of polymorphonuclear neutrophils Former cigarette smoker Personal history of tobacco use, presenting hazards to health [facility]* Diagnosis Eczema, unspecified type [facility]* Diagnosis URI, acute- Primary Acute upper respiratory infections of unspecified site Chronic obstructive pulmonary disease, unspecified COPD type (HCC) documented in this encounter [facility] note* Diagnosis Onset Date Resolution Status Hypoxemia acute Respiratory failure acute COPD exacerbation [facility] Work Phone: Evaluation note* Diagnosis COPD exacerbation (HCC)- Primary Obstructive chronic bronchitis with exacerbation Pulmonary emphysema, unspecified emphysema type (HCC) Angular cheilitis Diseases of lips [facility] Diagnosis Asthma-COPD overlap syndrome (HCC)- Primary Lung nodules Other nonspecific abnormal finding of lung field Granulomatous disease (HCC) Functional disorders of polymorphonuclear neutrophils Former cigarette smoker Personal history of tobacco use, presenting hazards to health [facility] Diagnosis Mixed hyperlipidemia- Primary Screening for depression Encounter for screening examination for other mental health and behavioral disorders Coronary artery disease involving [place] coronary artery of [place] heart without angina pectoris [place] (obstructive sleep [...] disorder of prostate [facility] Diagnosis Vitamin D deficiency Unspecified vitamin D deficiency [facility] Diagnosis URI, acute Acute upper respiratory infections of unspecified site [facility] Diagnosis URI, acute Acute upper respiratory infections of unspecified site SOB (shortness of breath) Shortness of breath [facility] Diagnosis Left-sided chest wall pain Painful respiration [facility] Diagnosis Pulmonary emphysema, unspecified emphysema type (HCC) [facility] Diagnosis Nocturnal leg cramps- Primary Sleep related leg cramps Encounter for immunization Need for other specified prophylactic vaccination against single bacterial disease [facility]* Diagnosis Eczema, unspecified type [facility] Diagnosis Coronary artery disease involving [place] coronary artery of [place] heart without angina pectoris [facility] Diagnosis Lung nodules- Primary Other nonspecific abnormal finding of lung field [facility]* Diagnosis Plantar fasciitis- Primary Plantar fascial fibromatosis [facility]* Diagnosis Eczema, unspecified type [facility] Diagnosis Pain Generalized pain [facility]* Diagnosis Pulmonary emphysema, unspecified emphysema type (HCC) [facility]* Diagnosis Encounter for Medicare annual wellness exam- Primary Routine general medical examination at a health care facility Mixed hyperlipidemia Elevated fasting blood sugar Impaired fasting glucose GERD without esophagitis Esophageal reflux Coronary artery disease involving [place] coronary artery of [place] heart without angina pectoris Bilateral carotid artery [...] unspecified single disease [facility]* Diagnosis Lung nodules Other nonspecific abnormal finding of lung field [facility]* Diagnosis Pneumonia of right upper lobe due to infectious organism- Primary [facility] Diagnosis Acute cough- Primary Wheezing Acute cough Wheezing [facility] Diagnosis Acute cough Wheezing [facility]* Diagnosis Intractable chronic migraine without aura and without status migrainosus- Primary Chronic migraine without aura, with intractable migraine, so stated, without mention of status migrainosus Asthma-COPD overlap syndrome (HCC) Coronary artery disease involving [place] coronary artery of [place] heart without angina pectoris Pulmonary emphysema, unspecified emphysema type (HCC) [place] (obstructive sleep apnea) Obstructive sleep apnea (adult) (pediatric) GERD without esophagitis Esophageal reflux Migraine without aura, intractable, without status migrainosus [facility]* Diagnosis Asthma-COPD overlap syndrome (HCC)- Primary Lung nodules Other nonspecific abnormal finding of lung field Former cigarette smoker Personal history of tobacco use, presenting hazards to health Granulomatous disease ([facility]) Functional disorders of polymorphonuclear neutrophils [facility]* Diagnosis Contusion of right upper arm, initial encounter- Primary [facility]* Diagnosis Asthma with COPD with exacerbation (HCC)- Primary Chronic obstructive asthma with exacerbation Acute bronchitis, unspecified organism Former cigarette smoker Personal history of tobacco use, presenting hazards to health [facility] Diagnosis Contact dermatitis, unspecified contact dermatitis type, unspecified trigger- Primary Screening for depression Encounter for screening examination for other mental health and behavioral disorders Asthma-COPD overlap syndrome (HCC) Coronary artery disease involving [place] coronary artery of [place] heart without angina pectoris Intractable chronic migraine without aura and without status migrainosus Chronic migraine without aura, with intractable migraine, so stated, without mention of status migrainosus GERD without esophagitis Esophageal reflux Mixed hyperlipidemia Elevated fasting blood sugar Impaired fasting glucose Injury of head, initial encounter Injury of head, initial encounter [facility] Diagnosis Vitamin D deficiency Unspecified vitamin D deficiency [facility] Diagnosis Rash- Primary Rash and other nonspecific skin eruption [facility] Diagnosis Ringworm- Primary Dermatophytosis of unspecified site Rash Rash and other nonspecific skin eruption [facility] ClinicEvaluation note* Diagnosis Ringworm Dermatophytosis of unspecified site [facility] Diagnosis Asthma-COPD overlap syndrome (HCC)- Primary Shortness of breath Productive cough Cough Former cigarette smoker Personal history of tobacco use, presenting hazards to health Lung nodules Other nonspecific abnormal finding of lung field Gastroesophageal reflux disease, unspecified whether esophagitis present Asthma-COPD overlap syndrome (HCC) Productive cough Cough [facility] Diagnosis Asthma-COPD overlap syndrome (HCC) Productive cough [facility]ough [facility] Dis[facility] instructionsAdditional Instructions Suspect soft tissue skin infection called cellulitis. Could be secondary to insect bite or stings but there is no history that you were bit or stung. Keflex 1 pill 4 times a day till gone. Take a dose of antibiotic tonight before you go to bed. Follow-up with your doctor if not improving. Return if worse.[facility] Work Phone: Reason for referral (narrative)* Outpatient Procedure (Routine) - Pending Review Specialty Diagnoses / Procedures Referred By Vimal calderon Referred To Contact [facility] Diagnoses Coronary artery disease involving [place] coronary artery of [place] heart without angina pectoris Exertional chest pain Procedures ECG COMPLETE ECG ROUTINE ECG W/LEAST 12 LDS W/I&R Andry Jean-Baptiste MD [facility] [place] [address] [facility] [place] [address] [place] [address] Referral ID Status Reason Start Date Expiration Date Visits Requested Visits Authorized [id number] Pending Review Auto-Generat ed Referral 10/24/2021 10/24/2022 1 1 * Consult, Test, Treat (Routine) - Authorized Specialty Diagnoses / Procedures Referred By Vimal t Referred To Contact Cardiology Diagnoses Coronary artery disease involving n[place] coronary artery of [place] heart without angina pectoris Exertional chest pain Procedures CONSULT TO CARDIOLOGY OFFICE/OUTPATIENT [facility] 60-74 MINUTES Andry Jean-Baptiste MD [address] [place] [address] Referral ID Status Reason Start Date Expiration Date Visits Requested Visits Authorized [id number] Authorized PCP Requested Referral 10/24/2021 10/24/2022 1 1 * Consult, Test, Treat (Routine) - Authorized Specialty Diagnoses / Procedures Referred By Contac t Referred To Contact Orthopedics Diagnoses Left hand pain Procedures CONSULT TO ORTHOPAEDICS OFFICE/OUTPATIENT [facility] 60-74 MINUTES Andry Jean-Baptiste MD [address] [place] [address] Referral ID Status Reason Start Date Expiration Date Visits Requested Visits Authorized [id number] Authorized PCP Requested Referral 10/24/2021 10/24/2022 1 1 * Diagnostic Procedure Only (Routine) - Closed Specialty Diagnoses / Procedures Referred By Contac t Referred To Contact XR IMAGING Diagnoses Left-sided chest wall pain Procedures XR RIBS/CHEST 3V AP RIB/OBLS/CXR LEFT RADEX RIBS UNI W/POSTEROANT CH MINIMUM 3 VIEWS Andry Jean-Baptiste MD [address] [place] [address] Xr Imaging Referral ID Status Reason Start Date Expiration Date V isits Requested Visits Authorized [id number] Closed Auto-Generate d Referral 10/24/2021 11/23/2022 1 1 [facility] for referral (narrative)* Outpatient Procedure (Routine) - Authorized Specialty Diagnoses / Procedures Referred By Contac t Referred To Contact [facility] Diagnoses Ingrowing toenail Diminished pulses in lower extremity Procedures PVR ANK PRESS RAQUEL VAS LAB NON-INVAS PHYSIOLOGIC STD EXTREMITY ART 2 LEVEL Srinath Summers [address] [place] [address] [facility] [place] [address] [place] [address] Referral ID Status Reason Start Date Expiration Date Visits Requested Visits Authorized [id number] Authorized Auto-Generat ed Referral 04/15/2022 04/15/2023 1 1 [facility] for referral (narrative)* Diagnostic Procedure Only (Routine) - Authorized Specialty Diagnoses / Procedures Referred By Contac t Referred To Contact US IMAGING Diagnoses Epigastric pain Procedures US ABD RIGHT UPPER QUADRANT US ABDOMINAL REAL TIME W/IMAGE LIMITED Andry Jean-Baptiste MD [address] [place] [address] Us Imaging [id number] Referral ID Status Reason Start Date Expiration Date Visits Requested Visits Authorized [id number] Authorized Auto-Generat ed Referral 3 05/27/2024 1 1 [facility] for referral (narrative)* Outpatient Procedure (Routine) - Pending Review Specialty Diagnoses / Procedures Referred By Contac t Referred To Contact HEART [facility] [place] Diagnoses URI, acute Procedures ECG COMPLETE ECG ROUTINE ECG W/LEAST 12 LDS W/I&R Lew Bird APRN.[employer] [address] [place] [address] [facility] [place] [address] [place] [address] Referral ID Status Reason Start Date Expiration Date Visits Requested Visits Authorized [id number] Pending Review Auto-Generat ed Referral 09/18/2023 09/17/2024 1 1 [facility] for referral (narrative)* Diagnostic Procedure Only (Routine) - Closed Specialty Diagnoses / Procedures Referred By Contac t Referred To Contact XR IMAGING Diagnoses Left-sided chest wall pain Procedures XR RIBS/CHEST 3V AP RIB/OBLS/CXR LEFT RADEX RIBS UNI W/POSTEROANT CH MINIMUM 3 VIEWS Andry Jean-Baptiste MD [address] [place] [address] Xr Imaging [id number] Referral ID Status Reason Start Date Expiration Date V isits Requested Visits Authorized [id number] Closed Auto-Generate d Referral 10/24/2021 11/23/2022 1 1 [facility] for referral (narrative)* Outpatient Procedure (Routine) - Authorized Specialty Diagnoses / Procedures Referred By Vimal t Referred To Contact [facility] Diagnoses Bilateral carotid artery disease, unspecified type (HCC) Procedures US CAROTID ARTERIES RAQUEL VAS LAB DUPLEX SCAN EXTRACRANIAL ART COMPL BI STUDY Andry Jean-Baptiste MD [address] [place] [address] [facility] [place] [address] [place] [address] Referral ID Status Reason Start Date Expiration Date Visits Requested Visits Authorized [id number] Authorized Auto-Generat ed Referral 06/15/2024 06/15/2025 1 1 [facility] for referral (narrative)No reason for referral information availableWChillic[facility] Work Phone: Reason for visit Narrative* Diagnostic Procedure Only (Routine) - Closed Specialty Diagnoses / Procedures Referred By Contac t Referred To Contact XR IMAGING Diagnoses Left-sided chest wall pain Procedures XR RIBS/CHEST 3V AP RIB/OBLS/CXR LEFT RADEX RIBS UNI W/POSTEROANT CH MINIMUM 3 VIEWS Andry Jean-Baptiste MD [address] [place] [address] [place] [address] Referral ID Status Reason Start Date Expiration Date V isits Requested Visits Authorized [id number] Closed Auto-Generate d Referral 10/24/2021 11/23/2022 1 1 [facility] Procedure Only (Routine) - Closed Specialty Diagnoses / Procedures Referred By Contac t Referred To Contact XR IMAGING Diagnoses Pain Procedures XR FOOT GENERAL 3V AP/LAT/OBL LEFT RADEX FOOT COMPLETE MINIMUM 3 VIEWS Srinath Summers [address] [address] [place] [address] Referral ID Status Reason Start Date Expiration Date V isits Requested Visits Authorized [id number] Closed Auto-Generate d Referral 04/19/2024 05/19/2025 1 1 [facility] Summary Purpose Family History No Family [...] FoundDocuments on File Type Date Recorded Patient Regulatory Administrator Expl anation Advance Directive(s) 10/23/2020 11:55 AM Advance Directive(s) 10/05/2020 3:55 PM Advance Directive(s) 04/18/2019 5:45 AM Advance Directive(s) 10/25/2018 9:52 AM Advance Directive(s) 09/01/2018 8:41 AM Advance Directive(s) 07/06/2018 8:22 AM Documents on File Type Date Recorded Patient Regulatory Administrator Expl anation Advance Directive(s) 10/08/2021 12:26 PM Advance Directive(s) 10/23/2020 11:55 AM Advance Directive(s) 10/05/2020 3:55 PM Advance Directive(s) 04/18/2019 5:45 AM Advance Directive(s) 10/25/2018 9:52 AM Advance Directive(s) 09/01/2018 8:41 AM Advance Directive(s) 07/06/2018 8:22 AM Documents on File Type Date Recorded Patient Regulatory Administrator Expl anation Advance Directive(s) 10/08/2021 12:26 PM Advance Directive(s) 10/23/2020 11:55 AM Advance Directive(s) 10/05/2020 3:55 PM Advance Directive(s) 04/18/2019 5:45 AM Advance Directive(s) 10/25/2018 9:52 AM Advance Directive(s) 09/01/2018 8:41 AM Advance Directive(s) 07/06/2018 8:22 AM Documents on File Type Date Recorded Patient Regulatory Administrator Expl anation Advance Directive(s) 10/08/2021 12:26 PM Documents on File Type Date Recorded Patient Regulatory Administrator Expl anation Advance Directive(s) 10/08/2021 12:26 PM Advance Directive Response Recorded Date/ Time Name of Medical Power of Plugging Machine Operator August 28, 2022 12:06pm Advance Directives Yes October 28 11:13am Living Will Yes August 28, 2022 12:06pm Power of Plugging Machine Operator Yes August 28 12:06pm Advance Directive Response Recorded Date/ Time Name of Medical Power of Plugging Machine Operator February 09, 2023 12:31pm Name of Medical Power of Plugging Machine Operator March 20, 2023 12:33pm Advance Directives Yes October 28 10:13am Living Will Yes March 20 12:33pm Power of Plugging Machine Operator Yes March 20, 2023 12:33pm Advance Directive Response Recorded Date/ Time Name of Medical Power of Plugging Machine Operator February 09, 2023 12:31pm Name of Medical Power of Plugging Machine Operator March 20, 2023 12:33pm Advance Directives Yes October 28 10:13am Living Will No May 18 1:21pm Power of Plugging Machine Operator No May 18 2 024 1:21pm Advance Directive Response Recorded Date/ Time Name of Medical Power of Plugging Machine Operator March 20, 2023 12:33pm Advance Directives Yes October 28 10:13am Living Will No May 18 1:21pm Power of Plugging Machine Operator No May 18 2 024 1:21pm Advance Directive Response Recorded Date/ Time Advance Directives Yes October 28 11:13am Living Will No September 20, 2023 1 :15pm Power of Plugging Machine Operator No September 20, 2023 1:15pm Advance Directive Response Recorded Date/ Time Do you have a Healthcare Power of Plugging Machine Operator? No November 13, 2024 6:08pm Advance Directives Yes October 28 11:13am Advance Directive Response Recorded Date/ Time Do you have a Healthcare Power of Plugging Machine Operator? No November 13, 2024 6:08pm Do you have a Healthcare Power of Plugging Machine Operator? Yes 2024 12:36pm Advance Directives Yes October 28 11:13am Reason for Referral Specialty Diagnoses / Procedures Referred By Contac t Referred To Contact Podiatry Diagnoses Nail problem Procedures CONSULT TO PODIATRY OFFICE/OUTPATIENT [facility] 60-74 MINUTES Andry Jean-Baptiste MD [address] [place] [address] Referral ID Status Reason Start Date Expiration Date Visits Requested Visits Authorized [id number] Authorized PCP Requested Referral 2 03/07/2023 1 1 Specialty Diagnoses / Procedures Referred By Contac t Referred To Contact Andry Jean-Baptiste MD [address] [place] [address] Referral ID Status Reason Start Date Expiration Date Visits Re quested Visits Authorized [id number] Closed 1 1 Referral ID Status Reason Start Date Expiration Date Visits Re quested Visits Authorized [id number] Closed 1 1 Specialty Diagnoses / Procedures Referred By Contac t Referred To Contact Gastroenterology Diagnoses Malabsorption syndrome Procedures CONSULT TO GASTROENTEROLOGY Lew Bird APRN.[facility] [address] [place] [address] FriendJason, DO [address] [address] Referral ID Status Reason Start Date Expiration Date Visits Requested Visits Authorized [id number] Ref Not Required PCP Requested Referral 06/23/2022 06/23/2023 1 1 Specialty Diagnoses / Procedures Referred By Contac t Referred To Contact Ent - Otolaryngology Diagnoses Oral polyp Procedures CONSULT TO ENT OFFICE/OUTPATIENT NEW HIGH MDM 60-74 MINUTES Lew Bird APRN.[employer] [address] [place] [address] Referral ID Status Reason Start Date Expiration Date Visits Requested Visits Authorized [id number] Authorized PCP Requested Referral 07/14/2022 07/14/2023 1 1 Specialty Diagnoses / Procedures Referred By Contac t Referred To Contact Diagnoses Pulmonary emphysema, unspecified emphysema type (HCC) Lew Bird APRN.[employer] [address] [place] [address] Referral ID Status Reason Start Date Expiration Date Visits Re quested Visits Authorized [id number] Closed 1 1 Specialty Diagnoses / Procedures Referred By Contac t Referred To Contact CT IMAGING Diagnoses Pneumonia of right lung due to infectious organism, unspecified part of lung Procedures CT CHEST WO IVCON DIAGNOSTIC COMPUTED TOMOGRAPHY THORAX W/O CNTRST Teri Gross MD [address] [place] [address] Ct Imaging [place] [address] Referral ID Status Reason Start Date Expiration Date Visits Requested Visits Authorized [id number] Pending Review Auto-Generat ed Referral 06/15/2023 05/15/2024 1 1 Specialty Diagnoses / Procedures Referred By Contac t Referred To Contact [facility] Diagnoses Chronic obstructive pulmonary disease, unspecified COPD type (HCC) Procedures LUNG DIFFUSION CAPACITY (DLCO) DIFFUSING CAPACITY Teri Gross MD [address] [place] [address] [facility] [place] [address] [place] [address] Referral ID Status Reason Start Date Expiration Date V isits Requested Visits Authorized [id number] Closed Auto-Generate d Referral 04/16/2023 05/15/2024 1 1 Specialty Diagnoses / Procedures Referred By Contac t Referred To Contact [facility] Diagnoses Chronic obstructive pulmonary disease, unspecified COPD type (HCC) Procedures SPIROMETRY WITH DILATOR IF OBSTRUCTED BRNCDILAT RSPSE SPMTRY PRE&POST-BRNCDILAT ADMTeri Bansal Olivia, MD [address] [place] [address] [facility] [place] [address] [place] [address] Referral ID Status Reason Start Date Expiration Date V isits Requested Visits Authorized [id number] Closed Auto-Generate d Referral 04/16/2023 05/15/2024 1 1 Referral ID Status Reason Start Date Expiration Date V isits Requested Visits Authorized [id number] Closed Auto-Generate d Referral 06/16/2023 07/16/2023 1 1 Specialty Diagnoses / Procedures Referred By Contac t Referred To Contact CT IMAGING Diagnoses Lung nodules Procedures CT CHEST WO IVCON DIAGNOSTIC COMPUTED TOMOGRAPHY THORAX W/O Maria De Jesus Peña PA-C [address] [place] [address] Ct Imaging [id number] Referral ID Status Reason Start Date Expiration Date Visits Requested Visits Authorized [id number] Pending Review Auto-Generat ed Referral 06/13/2024 11/12/2024 1 1 Specialty Diagnoses / Procedures Referred By Contac t Referred To Contact CT IMAGING Diagnoses Lung nodules Procedures CT CHEST WO IVCON DIAGNOSTIC COMPUTED TOMOGRAPHY THORAX W/O Teri Jara MD [address] [place] [address] Ct Imaging [id number] Referral ID Status Reason Start Date Expiration Date Visits Requested Visits Authorized [id number] New Request Auto-Generat ed Referral 06/20/2024 06/16/2025 [...] for Visit Hypoxemia Respiratory failure COPD exacerbation Chief Complaint Admit Date Rash November 13, 2024 5:50p m Chief Complaint Admit Date Rash November 13, 2024 5:50p m cellulitis 2024 12:26 pm Additional Source Comments (unrecognized sect ion and content) No Status Records FoundNo Status Records FoundNo Status Records FoundNo Status Records FoundNo Status Records FoundNo Status Records Found INFORMATION SOURCE (unrecogn ized section and content) DATE CREATED [facility] DATE CREATED AUTHOR AUTHOR'S ORGANIZ ATION 10/27/2019 [facility] DATE CREATED AUTHOR AUTHOR'S ORGANIZ ATION 05/01/2023 [facility] DATE CREATED AUTHOR AUTHOR'S ORGANIZ ATION 11/24/2024 [facility] DATE CREATED AUTHOR AUTHOR'S ORGANIZ ATION 12/16/2024 [facility] DATE CREATED AUTHOR AUTHOR'S ORGANIZ ATION 01/31/2025 [facility] Source Comments (unrecognize d section and content) In the event this informatio n is protected by the Federal Confidentiality of Alcohol and Drug Abuse Patient Records regulations: The Federal rules restrict any use of the information to criminally investigate or prosecute any alcohol or drug abuse patient.[facility] the event this information is protected by the Federal Confidentiality of Alcohol and Drug Abuse Patient Records regulations: The Federal rules restrict any use of the information to criminally investigate or prosecute any alcohol or drug abuse patient.[facility] the event this information is protected by the Federal Confidentiality of Alcohol and Drug Abuse Patient Records regulations: The Federal rules restrict any use of the information to criminally investigate or prosecute any alcohol or drug abuse patient.[facility] the event this information is protected by the Federal Confidentiality of Alcohol and Drug Abuse Patient Records regulations: The Federal rules restrict any use of the information to criminally investigate or prosecute any alcohol or drug abuse patient.[facility] the event this information is protected by the Federal Confidentiality of Alcohol and Drug Abuse Patient Records regulations: The Federal rules restrict any use of the information to criminally investigate or prosecute any alcohol or drug abuse patient.[facility] the event this information is protected by the Federal Confidentiality of Alcohol and Drug Abuse Patient Records regulations: The Federal rules restrict any use of the information to criminally investigate or prosecute any alcohol or drug abuse patient.[facility] the event this information is protected by the Federal Confidentiality of Alcohol and Drug Abuse Patient Records regulations: The Federal rules restrict any use of the information to criminally investigate or prosecute any alcohol or drug abuse patient.[facility] the event this information is protected by the Federal Confidentiality of Alcohol and Drug Abuse Patient Records regulations: The Federal rules restrict any use of the information to criminally investigate or prosecute any alcohol or drug abuse patient.[facility] the event this information is protected by the Federal Confidentiality of Alcohol and Drug Abuse Patient Records regulations: The Federal rules restrict any use of the information to criminally investigate or prosecute any alcohol or drug abuse patient.[facility] the event this information is protected by the Federal Confidentiality of Alcohol and Drug Abuse Patient Records regulations: The Federal rules restrict any use of the information to criminally investigate or prosecute any alcohol or drug abuse patient.[facility] the event this information is protected by the Federal Confidentiality of Alcohol and Drug Abuse Patient Records regulations: The Federal rules restrict any use of the information to criminally investigate or prosecute any alcohol or drug abuse patient.[facility] the event this information is protected by the Federal Confidentiality of Alcohol and Drug Abuse Patient Records regulations: The Federal rules restrict any use of the information to criminally investigate or prosecute any alcohol or drug abuse patient.[facility] the event this information is protected by the Federal Confidentiality of Alcohol and Drug Abuse Patient Records regulations: The Federal rules restrict any use of the information to criminally investigate or prosecute any alcohol or drug abuse patient.[facility] the event this information is protected by the Federal Confidentiality of Alcohol and Drug Abuse Patient Records regulations: The Federal rules restrict any use of the information to criminally investigate or prosecute any alcohol or drug abuse patient.[facility] the event this information is protected by the Federal Confidentiality of Alcohol and Drug Abuse Patient Records regulations: The Federal rules restrict any use of the information to criminally investigate or prosecute any alcohol or drug abuse patient.[facility] the event this information is protected by the Federal Confidentiality of Alcohol and Drug Abuse Patient Records regulations: The Federal rules restrict any use of the information to criminally investigate or prosecute any alcohol or drug abuse patient.[facility] the event this information is protected by the Federal Confidentiality of Alcohol and Drug Abuse Patient Records regulations: The Federal rules restrict any use of the information to criminally investigate or prosecute any alcohol or drug abuse patient.[facility] the event this information is protected by the Federal Confidentiality of Alcohol and Drug Abuse Patient Records regulations: The Federal rules restrict any use of the information to criminally investigate or prosecute any alcohol or drug abuse patient.[facility] the event this information is protected by the Federal Confidentiality of Alcohol and Drug Abuse Patient Records regulations: The Federal rules restrict any use of the information to criminally investigate or prosecute any alcohol or drug abuse patient.[facility] the event this information is protected by the Federal Confidentiality of Alcohol and Drug Abuse Patient Records regulations: The Federal rules restrict any use of the information to criminally investigate or prosecute any alcohol or drug abuse patient.[facility] HospitalIn the event this information is protected by the Federal Confidentiality of Alcohol and Drug Abuse Patient Records regulations: The Federal rules restrict any use of the information to criminally investigate or prosecute any alcohol or drug abuse patient.[facility] the event this information is protected by the Federal Confidentiality of Alcohol and Drug Abuse Patient Records regulations: The Federal rules restrict any use of the information to criminally investigate or prosecute any alcohol or drug abuse patient.[facility] the event this information is protected by the Federal Confidentiality of Alcohol and Drug Abuse Patient Records regulations: The Federal rules restrict any use of the information to criminally investigate or prosecute any alcohol or drug abuse patient.[facility] Hospital[facility] the event this information is protected by the Federal Confidentiality of Alcohol and Drug Abuse Patient Records regulations: The Federal rules restrict any use of the information to criminally investigate or prosecute any alcohol or drug abuse patient.[facility] the event this information is protected by the Federal Confidentiality of Alcohol and Drug Abuse Patient Records regulations: The Federal rules restrict any use of the information to criminally investigate or prosecute any alcohol or drug abuse patient.[facility] the event this information is protected by the Federal Confidentiality of Alcohol and Drug Abuse Patient Records regulations: The Federal rules restrict any use of the information to criminally investigate or prosecute any alcohol or drug abuse patient.[facility] the event this information is protected by the Federal Confidentiality of Alcohol and Drug Abuse Patient Records regulations: The Federal rules restrict any use of the information to criminally investigate or prosecute any alcohol or drug abuse patient.[facility] HospitalIn the event this information is protected by the Federal Confidentiality of Alcohol and Drug Abuse Patient Records regulations: The Federal rules restrict any use of the information to criminally investigate or prosecute any alcohol or drug abuse patient.[facility] HospitalIn the event this information is protected by the Federal Confidentiality of Alcohol and Drug Abuse Patient Records regulations: The Federal rules restrict any use of the information to criminally investigate or prosecute any alcohol or drug abuse patient.[facility] the event this information is protected by the Federal Confidentiality of Alcohol and Drug Abuse Patient Records regulations: The Federal rules restrict any use of the information to criminally investigate or prosecute any alcohol or drug abuse patient.[facility] HospitalIn the event this information is protected by the Federal Confidentiality of Alcohol and Drug Abuse Patient Records regulations: The Federal rules restrict any use of the information to criminally investigate or prosecute any alcohol or drug abuse patient.[facility] HospitalIn the event this information is protected by the Federal Confidentiality of Alcohol and Drug Abuse Patient Records regulations: The Federal rules restrict any use of the information to criminally investigate or prosecute any alcohol or drug abuse patient.[facility] HospitalIn the event this information is protected by the Federal Confidentiality of Alcohol and Drug Abuse Patient Records regulations: The Federal rules restrict any use of the information to criminally investigate or prosecute any alcohol or drug abuse patient.[facility] HospitalIn the event this information is protected by the Federal Confidentiality of Alcohol and Drug Abuse Patient Records regulations: The Federal rules restrict any use of the information to criminally investigate or prosecute any alcohol or drug abuse patient.[facility] HospitalIn the event this information is protected by the Federal Confidentiality of Alcohol and Drug Abuse Patient Records regulations: The Federal rules restrict any use of the information to criminally investigate or prosecute any alcohol or drug abuse patient.[facility] HospitalIn the event this information is protected by the Federal Confidentiality of Alcohol and Drug Abuse Patient Records regulations: The Federal rules restrict any use of the information to criminally investigate or prosecute any alcohol or drug abuse patient.[facility] HospitalIn the event this information is protected by the Federal Confidentiality of Alcohol and Drug Abuse Patient Records regulations: The Federal rules restrict any use of the information to criminally investigate or prosecute any alcohol or drug abuse patient.[facility] the event this information is protected by the Federal Confidentiality of Alcohol and Drug Abuse Patient Records regulations: The Federal rules restrict any use of the information to criminally investigate or prosecute any alcohol or drug abuse patient.[facility] HospitalIn the event this information is protected by the Federal Confidentiality of Alcohol and Drug Abuse Patient Records regulations: The Federal rules restrict any use of the information to criminally investigate or prosecute any alcohol or drug abuse patient.[facility] HospitalIn the event this information is protected by the Federal Confidentiality of Alcohol and Drug Abuse Patient Records regulations: The Federal rules restrict any use of the information to criminally investigate or prosecute any alcohol or drug abuse patient.[facility] HospitalIn the event this information is protected by the Federal Confidentiality of Alcohol and Drug Abuse Patient Records regulations: The Federal rules restrict any use of the information to criminally investigate or prosecute any alcohol or drug abuse patient.[facility] HospitalIn the event this information is protected by the Federal Confidentiality of Alcohol and Drug Abuse Patient Records regulations: The Federal rules restrict any use of the information to criminally investigate or prosecute any alcohol or drug abuse patient.[facility] HospitalIn the event this information is protected by the Federal Confidentiality of Alcohol and Drug Abuse Patient Records regulations: The Federal rules restrict any use of the information to criminally investigate or prosecute any alcohol or drug abuse patient.[facility] HospitalIn the event this information is protected by the Federal Confidentiality of Alcohol and Drug Abuse Patient Records regulations: The Federal rules restrict any use of the information to criminally investigate or prosecute any alcohol or drug abuse patient.[facility] HospitalIn the event this information is protected by the Federal Confidentiality of Alcohol and Drug Abuse Patient Records regulations: The Federal rules restrict any use of the information to criminally investigate or prosecute any alcohol or drug abuse patient.[facility] HospitalIn the event this information is protected by the Federal Confidentiality of Alcohol and Drug Abuse Patient Records regulations: The Federal rules restrict any use of the information to criminally investigate or prosecute any alcohol or drug abuse patient.[facility] HospitalIn the event this information is protected by the Federal Confidentiality of Alcohol and Drug Abuse Patient Records regulations: The Federal rules restrict any use of the information to criminally investigate or prosecute any alcohol or drug abuse patient.[facility] HospitalIn the event this information is protected by the Federal Confidentiality of Alcohol and Drug Abuse Patient Records regulations: The Federal rules restrict any use of the information to criminally investigate or prosecute any alcohol or drug abuse patient.[facility] HospitalIn the event this information is protected by the Federal Confidentiality of Alcohol and Drug Abuse Patient Records regulations: The Federal rules restrict any use of the information to criminally investigate or prosecute any alcohol or drug abuse patient.[facility] HospitalIn the event this information is protected by the Federal Confidentiality of Alcohol and Drug Abuse Patient Records regulations: The Federal rules restrict any use of the information to criminally investigate or prosecute any alcohol or drug abuse patient.[facility] HospitalIn the event this information is protected by the Federal Confidentiality of Alcohol and Drug Abuse Patient Records regulations: The Federal rules restrict any use of the information to criminally investigate or prosecute any alcohol or drug abuse patient.[facility] HospitalIn the event this information is protected by the Federal Confidentiality of Alcohol and Drug Abuse Patient Records regulations: The Federal rules restrict any use of the information to criminally investigate or prosecute any alcohol or drug abuse patient.[facility] HospitalIn the event this information is protected by the Federal Confidentiality of Alcohol and Drug Abuse Patient Records regulations: The Federal rules restrict any use of the information to criminally investigate or prosecute any alcohol or drug abuse patient.[facility] HospitalIn the event this information is protected by the Federal Confidentiality of Alcohol and Drug Abuse Patient Records regulations: The Federal rules restrict any use of the information to criminally investigate or prosecute any alcohol or drug abuse patient.[facility] HospitalIn the event this information is protected by the Federal Confidentiality of Alcohol and Drug Abuse Patient Records regulations: The Federal rules restrict any use of the information to criminally investigate or prosecute any alcohol or drug abuse patient.[facility] HospitalIn the event this information is protected by the Federal Confidentiality of Alcohol and Drug Abuse Patient Records regulations: The Federal rules restrict any use of the information to criminally investigate or prosecute any alcohol or drug abuse patient.[facility] HospitalIn the event this information is protected by the Federal Confidentiality of Alcohol and Drug Abuse Patient Records regulations: The Federal rules restrict any use of the information to criminally investigate or prosecute any alcohol or drug abuse patient.[facility] HospitalIn the event this information is protected by the Federal Confidentiality of Alcohol and Drug Abuse Patient Records regulations: The Federal rules restrict any use of the information to criminally investigate or prosecute any alcohol or drug abuse patient.[facility] HospitalIn the event this information is protected by the Federal Confidentiality of Alcohol and Drug Abuse Patient Records regulations: The Federal rules restrict any use of the information to criminally investigate or prosecute any alcohol or drug abuse patient.[facility] HospitalIn the event this information is protected by the Federal Confidentiality of Alcohol and Drug Abuse Patient Records regulations: The Federal rules restrict any use of the information to criminally investigate or prosecute any alcohol or drug abuse patient.[facility] HospitalIn the event this information is protected by the Federal Confidentiality of Alcohol and Drug Abuse Patient Records regulations: The Federal rules restrict any use of the information to criminally investigate or prosecute any alcohol or drug abuse patient.[facility] HospitalIn the event this information is protected by the Federal Confidentiality of Alcohol and Drug Abuse Patient Records regulations: The Federal rules restrict any use of the information to criminally investigate or prosecute any alcohol or drug abuse patient.[facility] HospitalIn the event this information is protected by the Federal Confidentiality of Alcohol and Drug Abuse Patient Records regulations: The Federal rules restrict any use of the information to criminally investigate or prosecute any alcohol or drug abuse patient.[facility] HospitalIn the event this information is protected by the Federal Confidentiality of Alcohol and Drug Abuse Patient Records regulations: The Federal rules restrict any use of the information to criminally investigate or prosecute any alcohol or drug abuse patient.[facility] HospitalIn the event this information is protected by the Federal Confidentiality of Alcohol and Drug Abuse Patient Records regulations: The Federal rules restrict any use of the information to criminally investigate or prosecute any alcohol or drug abuse patient.[facility] HospitalIn the event this information is protected by the Federal Confidentiality of Alcohol and Drug Abuse Patient Records regulations: The Federal rules restrict any use of the information to criminally investigate or prosecute any alcohol or drug abuse patient.[facility] HospitalIn the event this information is protected by the Federal Confidentiality of Alcohol and Drug Abuse Patient Records regulations: The Federal rules restrict any use of the information to criminally investigate or prosecute any alcohol or drug abuse patient.[facility] HospitalIn the event this information is protected by the Federal Confidentiality of Alcohol and Drug Abuse Patient Records regulations: The Federal rules restrict any use of the information to criminally investigate or prosecute any alcohol or drug abuse patient.[facility] HospitalIn the event this information is protected by the Federal Confidentiality of Alcohol and Drug Abuse Patient Records regulations: The Federal rules restrict any use of the information to criminally investigate or prosecute any alcohol or drug abuse patient.[facility] HospitalIn the event this information is protected by the Federal Confidentiality of Alcohol and Drug Abuse Patient Records regulations: The Federal rules restrict any use of the information to criminally investigate or prosecute any alcohol or drug abuse patient.[facility] HospitalIn the event this information is protected by the Federal Confidentiality of Alcohol and Drug Abuse Patient Records regulations: The Federal rules restrict any use of the information to criminally investigate or prosecute any alcohol or drug abuse patient.[facility] HospitalIn the event this information is protected by the Federal Confidentiality of Alcohol and Drug Abuse Patient Records regulations: The Federal rules restrict any use of the information to criminally investigate or prosecute any alcohol or drug abuse patient.[facility] HospitalIn the event this information is protected by the Federal Confidentiality of Alcohol and Drug Abuse Patient Records regulations: The Federal rules restrict any use of the information to criminally investigate or prosecute any alcohol or drug abuse patient.[facility] HospitalIn the event this information is protected by the Federal Confidentiality of Alcohol and Drug Abuse Patient Records regulations: The Federal rules restrict any use of the information to criminally investigate or prosecute any alcohol or drug abuse patient.[facility] HospitalIn the event this information is protected by the Federal Confidentiality of Alcohol and Drug Abuse Patient Records regulations: The Federal rules restrict any use of the information to criminally investigate or prosecute any alcohol or drug abuse patient.[facility] HospitalIn the event this information is protected by the Federal Confidentiality of Alcohol and Drug Abuse Patient Records regulations: The Federal rules restrict any use of the information to criminally investigate or prosecute any alcohol or drug abuse patient.[facility] HospitalIn the event this information is protected by the Federal Confidentiality of Alcohol and Drug Abuse Patient Records regulations: The Federal rules restrict any use of the information to criminally investigate or prosecute any alcohol or drug abuse patient.[facility] HospitalIn the event this information is protected by the Federal Confidentiality of Alcohol and Drug Abuse Patient Records regulations: The Federal rules restrict any use of the information to criminally investigate or prosecute any alcohol or drug abuse patient.[facility] HospitalIn the event this information is protected by the Federal Confidentiality of Alcohol and Drug Abuse Patient Records regulations: The Federal rules restrict any use of the information to criminally investigate or prosecute any alcohol or drug abuse patient.[facility] HospitalIn the event this information is protected by the Federal Confidentiality of Alcohol and Drug Abuse Patient Records regulations: The Federal rules restrict any use of the information to criminally investigate or prosecute any alcohol or drug abuse patient.[facility] HospitalIn the event this information is protected by the Federal Confidentiality of Alcohol and Drug Abuse Patient Records regulations: The Federal rules restrict any use of the information to criminally investigate or prosecute any alcohol or drug abuse patient.[facility] HospitalIn the event this information is protected by the Federal Confidentiality of Alcohol and Drug Abuse Patient Records regulations: The Federal rules restrict any use of the information to criminally investigate or prosecute any alcohol or drug abuse patient.[facility] HospitalIn the event this information is protected by the Federal Confidentiality of Alcohol and Drug Abuse Patient Records regulations: The Federal rules restrict any use of the information to criminally investigate or prosecute any alcohol or drug abuse patient.[facility] HospitalIn the event this information is protected by the Federal Confidentiality of Alcohol and Drug Abuse Patient Records regulations: The Federal rules restrict any use of the information to criminally investigate or prosecute any alcohol or drug abuse patient.[facility] HospitalIn the event this information is protected by the Federal Confidentiality of Alcohol and Drug Abuse Patient Records regulations: The Federal rules restrict any use of the information to criminally investigate or prosecute any alcohol or drug abuse patient.[facility] HospitalIn the event this information is protected by the Federal Confidentiality of Alcohol and Drug Abuse Patient Records regulations: The Federal rules restrict any use of the information to criminally investigate or prosecute any alcohol or drug abuse patient.[facility] HospitalIn the event this information is protected by the Federal Confidentiality of Alcohol and Drug Abuse Patient Records regulations: The Federal rules restrict any use of the information to criminally investigate or prosecute any alcohol or drug abuse patient.[facility] the event this information is protected by the Federal Confidentiality of Alcohol and Drug Abuse Patient Records regulations: The Federal rules restrict any use of the information to criminally investigate or prosecute any alcohol or drug abuse patient.[facility] HospitalIn the event this information is protected by the Federal Confidentiality of Alcohol and Drug Abuse Patient Records regulations: The Federal rules restrict any use of the information to criminally investigate or prosecute any alcohol or drug abuse patient.[facility] HospitalIn the event this information is protected by the Federal Confidentiality of Alcohol and Drug Abuse Patient Records regulations: The Federal rules restrict any use of the information to criminally investigate or prosecute any alcohol or drug abuse patient.[facility] HospitalIn the event this information is protected by the Federal Confidentiality of Alcohol and Drug Abuse Patient Records regulations: The Federal rules restrict any use of the information to criminally investigate or prosecute any alcohol or drug abuse patient.[facility] HospitalIn the event this information is protected by the Federal Confidentiality of Alcohol and Drug Abuse Patient Records regulations: The Federal rules restrict any use of the information to criminally investigate or prosecute any alcohol or drug abuse patient.[facility] HospitalIn the event this information is protected by the Federal Confidentiality of Alcohol and Drug Abuse Patient Records regulations: The Federal rules restrict any use of the information to criminally investigate or prosecute any alcohol or drug abuse patient.[facility] HospitalIn the event this information is protected by the Federal Confidentiality of Alcohol and Drug Abuse Patient Records regulations: The Federal rules restrict any use of the information to criminally investigate or prosecute any alcohol or drug abuse patient.[facility] HospitalIn the event this information is protected by the Federal Confidentiality of Alcohol and Drug Abuse Patient Records regulations: The Federal rules restrict any use of the information to criminally investigate or prosecute any alcohol or drug abuse patient.[facility] HospitalIn the event this information is protected by the Federal Confidentiality of Alcohol and Drug Abuse Patient Records regulations: The Federal rules restrict any use of the information to criminally investigate or prosecute any alcohol or drug abuse patient.[facility] Care Teams (unrecognized sec tion and content) [employer] Operations Vice President Relationship Specialty Start Date End Date Andry Jean-Baptiste MD [address] [place] [address] PCP - General Family Practice 12/14/15 [employer] Vice President Relationship Specialty Start Date End Date Andry Jean-Baptiste MD [address] [place] [address] PCP - General Family Practice 12/14/15 [employer] Vice President Relationship Specialty Start Date End Date Andry Jean-Baptiste MD [address] [place] [address] PCP - General Family Practice 12/14/15 [employer] Vice President Relationship Specialty Start Date End Date Andry Jean-Baptiste MD [address] [place] [address] PCP - General Family Practice 12/14/15 [employer] Vice President Relationship Specialty Start Date End Date Andry Jean-Baptiste MD [address] [facility] [address] PCP - General Family Practice 12/14/15 [employer] Vice President Relationship Specialty Start Date End Date Andry Jean-Baptiste MD [address] [facility] [address] PCP - General Family Practice 12/14/15 [employer] Operations Vice President Relationship Specialty Start Date End Date Andry Jean-Baptiste MD [facility] [place] [address] PCP - General Family Practice 12/14/15 [employer] Operations Vice President Relationship Specialty Start Date End Date Andry Jean-Baptiste MD [facility] [address] PCP - General Family Practice 12/14/15 [employer] Vice President Relationship Specialty Start Date End Date Andry Jean-Baptiste MD [facility] [place] [address] PCP - General Family Medicine 12/14/15 [employer] Operations Vice President Relationship Specialty Start Date End Date Andry Jean-Baptiste MD [facility] [address] PCP - General Family Medicine 12/14/15 [employer] Vice President Relationship Specialty Start Date End Date Andry Jean-Baptiste MD [facility] [address] PCP - General Family Medicine 12/14/15 [employer] Operations Vice President Relationship Specialty Start Date End Date Andry Jean-Baptiste MD [facility] [place] [address] PCP - General Family Medicine 12/14/15 [employer] Operations Vice President Relationship Specialty Start Date End Date Andry Jean-Baptiste MD [facility] [address] PCP - General Family Medicine 12/14/15 [employer] Operations Vice President Relationship Specialty Start Date End Date Andry Jean-Baptiste MD [address] [facility] [address] PCP - General Family Medicine 12/14/15 [employer] Operations Vice President Relationship Specialty Start Date End Date Andry Jean-Baptiste MD [address] [facility] [address] PCP - General Family Medicine 12/14/15 [employer] Operations Vice President Relationship Specialty Start Date End Date Andry Jean-Baptiste MD [address] [facility] [address] PCP - General Family Medicine 12/14/15 [employer] Operations Vice President Relationship Specialty Start Date End Date Andry Jean-Baptiste MD [address] [facility] [address] PCP - General Family Medicine 12/14/15 [employer] Operations Vice President Relationship Specialty Start Date End Date Andry Jean-Baptiste MD [address] [facility] [address] PCP - General Family Medicine 12/14/15 [employer] Operations Vice President Relationship Specialty Start Date End Date Andry Jean-Baptiste MD [address] [place] [address] PCP - General Family Medicine 12/14/15 Team Status: Active Member Role Status Dates Dr. Andry Jean-Baptiste MD Family Provider Active Dr. Adnry Jean-Baptiste MD Primary Care Provider Active Team [...] Active Dr. Kirk Dumas MD Attending Provider, Refer g Provider Active [employer] Operations Vice President Relationship Specialty Start Date End Date Andry Jean-Baptiste MD [address] [place] [address] PCP - General Family Medicine 12/14/15 [employer] Vice President Relationship Specialty Start Date End Date Andry Jean-Baptiste MD [address] [place] [address] PCP - General Family Medicine 12/14/15 [employer] Vice President Relationship Specialty Start Date End Date Andry Jean-Baptiste MD [address] [place] [address] PCP - General Family Medicine 12/14/15 [employer] Operations Vice President Relationship Specialty Start Date End Date Andry Jean-Baptiste MD [address] [place] [address] PCP - General Family Medicine 12/14/15 [employer] Operations Vice President Relationship Specialty Start Date End Date Andry Jean-Baptiste MD [address] [place] [address] PCP - General Family Medicine 12/14/15 [employer] Operations Vice President Relationship Specialty Start Date End Date Andry Jean-Baptiste MD [address] [place] [address] PCP - General Family Medicine 12/14/15 Team Status: Inactive Member Role Status Dates Dr. Andry Jean-Baptiste MD Primary Care Provider Active Dr. Maycol Olivares MD Attending Provider, Emergency Pro vider Active Team Status: Inactive Member Role Status Dates Dr. nAdry Jean-Baptiste MD Primary Care Provider Active Dr. Thor Oswald MD Emergency Provider Active Energy Operations Vice President Relationship Specialty Start Date End Date Andry Jean-Baptiste MD [address] [facility] [place] [address] PCP - General Family Medicine 12/14/15 Energy Operations Vice President Relationship Specialty Start Date End Date Andry Jean-Baptiste MD [address] [facility] [address] PCP - General Family Medicine 12/14/15 Energy Operations Vice President Relationship Specialty Start Date End Date Andry Jean-Baptiste MD [address] [place] [address] PCP - General Family Medicine 12/14/15 Energy Operations Vice President Relationship Specialty Start Date End Date Andry Jean-Baptiste MD [address] [place] [address] PCP - General Family Medicine 12/14/15 Team [...] Active Dr. Dany Tovar MD Attending Provider, Referring P rovider Active Team Status: Inactive Member Role Status Dates Dr. Anrdy Jean-Baptiste MD Primary Care Provider Active Dr. Lionel Neville DO Attending Provider, Emergency P rovider Active Energy Operations Vice President Relationship Specialty Start Date End Date Andry Jean-Baptiste MD [address] [facility] [place] [address] PCP - General Family Medicine 12/14/15 Energy Operations Vice President Relationship Specialty Start Date End Date Andry Jean-Baptiste MD [address] [facility] [address] PCP - General Family Medicine 12/14/15 Energy Operations Vice President Relationship Specialty Start Date End Date Andry Jean-Baptiste MD [address] [place] [address] PCP - General Family Medicine 12/14/15 Energy Operations Vice President Relationship Specialty Start Date End Date Andry Jean-Baptiste MD [address] [place] [address] PCP - General Family Medicine 12/14/15 Energy Operations Vice President Relationship Specialty Start Date End Date Andry Jean-Baptiste MD [address] [place] [address] PCP - General Family Medicine 12/14/15 Energy Operations Vice President Relationship Specialty Start Date End Date Andry Jean-Baptiste MD [address] [place] [address] PCP - General Family Medicine 12/14/15 Team Status: Active Member Role Status Dates Dr. Andry Jean-Baptiste MD Primary Care Provider Active Dr. Saray Hutchinson DO Emergency Provider Active Dr. Dutch Garnett DO Admit Provider, Attending Provider Active Energy Operations Vice President Relationship Specialty Start Date End Date Andry Jean-Baptiste MD [address] [place] [address] PCP - General Family Medicine 12/14/15 Energy Operations Vice President Relationship Specialty Start Date End Date Andry Jean-Baptiste MD [address] [place] [address] PCP - General Family Medicine 12/14/15 Energy Operations Vice President Relationship Specialty Start Date End Date Andry Jean-Baptiste MD [address] [place] [address] PCP - General Family Medicine 12/14/15 Energy Operations Vice President Relationship Specialty Start Date End Date Andry Jean-Baptiste MD [address] [place] [address] PCP - General Family Medicine 12/14/15 Energy Operations Vice President Relationship Specialty Start Date End Date Andry Jean-Baptiste MD [address] [place] [address] PCP - General Family Medicine 12/14/15 Energy Operations Vice President Relationship Specialty Start Date End Date Andry Jean-Baptiste MD [address] [place] [address] PCP - General Family Medicine 12/14/15 Lew Bird, AS400 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 [address] [place] [address] Special Weapons And Tactics Officer Family Medicine 04/16/24 Irma Perez PA-C [address] [place] [address] Special Weapons And Tactics Officer Family Medicine 04/16/24 Energy Operations Vice President Relationship Specialty Start Date End Date Andry Jean-Baptiste MD [address] [place] [address] PCP - General Family Medicine 12/14/15 Lew Bird, [employer]400 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 [address] [place] [address] Special Weapons And Tactics Officer Family Medicine 04/16/24 Irma Perez PA-C [address] [place] [address] Special Weapons And Tactics Officer Family Medicine 04/16/24 Energy Operations Vice President Relationship Specialty Start Date End Date Andry Jean-Baptiste MD [address] [place] [address] PCP - General Family Medicine 12/14/15 Lew Bird APRN.VOLLEYBALL PLAYER [address] [place] [address] Special Weapons And Tactics Officer Family Medicine 04/16/24 Irma Perez PA-C [address] [place] [address] Special Weapons And Tactics Officer Family Medicine 04/16/24 Energy Operations Vice President Relationship Specialty Start Date End Date Andry Jean-Baptiste MD [facility] [place] [address] PCP - General Family Medicine 12/14/15 Lew Bird APRN.VOLLEYBALL PLAYER [address] [place] [address] Special Weapons And Tactics Officer Family Medicine 04/16/24 Irma Perez PA-C [address] [place] [address] Special Weapons And Tactics Officer Family Medicine 04/16/24 Energy Operations Vice President Relationship Specialty Start Date End Date Andry Jean-Baptiste MD [address] [place] [address] PCP - General Family Medicine 12/14/15 Lew Bird APRN.VOLLEYBALL PLAYER [facility] [place] [address] Special Weapons And Tactics Officer Family Medicine 04/16/24 Irma Perez PA-C [address] [place] [address] Special Weapons And Tactics Officer Family [facility] 04/16/24 Energy Operations Vice President Relationship Specialty Start Date End Date Andry Jean-Baptiste MD [address] [place] [address] PCP - General Family Medicine 12/14/15 Lew Bird, CATIA.VOLLEYBALL PLAYER [address] [place] [address] Special Weapons And Tactics Officer Family Medicine 04/16/24 Irma Perez PA-C [address] [place] [address] [facility] 04/16/24 Energy Operations Vice President Relationship Specialty Start Date End Date Andry Jean-Baptiste MD [address] [place] [address] PCP - General Family Medicine 12/14/15 Lew Bird, [employer]400 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 [address] [place] [address] Special Weapons And Tactics Officer Family Medicine 04/16/24 Irma Perez PA-C [address] [place] [address] Special Weapons And Tactics Officer Family Medicine 04/16/24 Energy Operations Vice President Relationship Specialty Start Date End Date Andry Jean-Baptiste MD [address] [place] [address] PCP - General Family Medicine 12/14/15 Lew Bird, AS400 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 [address] [place] [address] Special Weapons And Tactics Officer Family Medicine 04/16/24 Irma Perez PA-C [address] [facility] [address] Special Weapons And Tactics Officer [facility] 04/16/24 Energy Operations Vice President Relationship Specialty Start Date End Date Andry Jean-Baptiste MD [address] [facility] [address] PCP - General Family Medicine 12/14/15 Lew Bird APRN.VOLLEYBALL PLAYER [address] [place] [address] Special Weapons And Tactics Officer Family Medicine 04/16/24 Irma Perez PA-C [address] [place] [address] [facility] Energy Operations Vice President Relationship Specialty Start Date End Date Andry Jean-Baptiste MD [address] [place] [address] PCP - General Family Medicine 12/14/15 Lew Bird, CATIA.VOLLEYBALL PLAYER [address] [place] [address] Special Weapons And Tactics Officer Family Medicine 04/16/24 Irma Perez PA-C [address] [facility] [address] Special Weapons And Tactics Officer [facility] 04/16/24 Energy Operations Vice President Relationship Specialty Start Date End Date Andry Jean-Baptiste MD [address] [facility] [address] PCP - General Family Medicine 12/14/15 Lew Bird APRN.VOLLEYBALL PLAYER [address] [place] [address] Special Weapons And Tactics Officer Family Medicine 04/16/24 Irma Perez PA-C [address] [place] [address] Special Weapons And Tactics Officer Family Medicine 04/16/24 Energy Operations Vice President Relationship Specialty Start Date End Date Andry Jean-Baptiste MD [address] [place] [address] PCP - General Family Medicine 08/15/24 Lew Bird APRN.VOLLEYBALL PLAYER [facility] [place] [address] Special Weapons And Tactics Officer Family Medicine 04/16/24 Irma Perez PA-C [address] [place] [address] Special Weapons And Tactics Officer Family Medicine 04/16/24 Energy Operations Vice President Relationship Specialty Start Date End Date Andry Jean-Baptiste MD [address] [place] [address] PCP - General Family Medicine 08/15/24 Lew Bird APRN.VOLLEYBALL PLAYER [address] [place] [address] Special Weapons And Tactics Officer Family Medicine 04/16/24 Irma Perez PA-C [address] [place] [address] Special Weapons And Tactics Officer Family Medicine 04/16/24 Energy Operations Vice President Relationship Specialty Start Date End Date Andry Jean-Baptiste MD [address] [place] [address] PCP - General Family Medicine 08/15/24 Lew Bird APRN.VOLLEYBALL PLAYER [address] [place] [address] Special Weapons And Tactics Officer Family [facility] 04/16/24 Irma Perez PA-C [address] [place] [address] Special Weapons And Tactics Officer Family Medicine 04/16/24 Energy Operations Vice President Relationship Specialty Start Date End Date Andry Jean-Baptiste MD [address] [place] [address] PCP - General Family Medicine 08/15/24 Lew Bird APRN.VOLLEYBALL PLAYER [address] [place] [address] Special Weapons And Tactics Officer Family Medicine 04/16/24 Irma Perez PA-C [address] [place] [address] [facility] 04/16/[facility] Energy Operations Vice President Relationship Specialty Start Date End Date Andry Jean-Baptiste MD [address] [place] [address] PCP - General Family Medicine 08/15/24 Lew Bird APRN.VOLLEYBALL PLAYER [facility] [place] [address] Special Weapons And Tactics Officer Family Medicine 04/16/24 Irma Perez PA-C [address] [place] [address] Special Weapons And Tactics Officer Family [facility] 04/16/24 Team Status: Active Member Role/Relationship Status Dates Dr. Andry Jean-Baptiste MD Primary Care Provider Active Team Status: Inactive Member Role/Relationship Status Dates Dr. Andry Jean-Baptiste MD Primary Care Provider Active Start: November 13, 2024 End: November 13, 2024 Dr. Maycol Olivares MD Emergency Provider Active S tart: November 13, 2024 End: November 13, 2024 Team Status: Inactive Member Role/Relationship Status Dates Dr. Andry Jean-Baptiste MD Primary Care Provider Active Start: 2024 End: 2024 Fredo Smiley MD Emergency Provider Active Star t: 2024 End: 2024 Energy Operations Vice President Relationship Specialty Start Date End Date Andry Jean-Baptiste MD [address] [place] [address] PCP - General Family Medicine 08/15/24 Lew Bird, CATIA.VOLLEYBALL PLAYER [address] [place] [address] Special Weapons And Tactics Officer Family Medicine 10/10/24 Irma Perez PA-C [address] [place] [address] Special Weapons And Tactics Officer Family Medicine 10/10/24 Energy Operations Vice President Relationship Specialty Start Date End Date Andry Jean-Baptiste MD [address] [place] [address] PCP - General Family Medicine 08/15/24 Lew Bird APRN.VOLLEYBALL PLAYER [address] [place] [address] Special Weapons And Tactics Officer Family Medicine 10/10/24 Irma Perez PA-C [facility] [place] [address] Special Weapons And Tactics Officer Family Medicine 10/10/24 Energy Operations Vice President Relationship Specialty Start Date End Date Andry Jean-Baptiste MD [address] [place] [address] PCP - General Family Medicine 08/15/24 Lew Bird APRN.VOLLEYBALL PLAYER [address] [place] [address] Special Weapons And Tactics Officer Family Medicine 10/10/24 Irma Perez PA-C [address] [place] [address] Special Weapons And Tactics Officer Family Medicine 10/10/24 Energy Operations Vice President Relationship Specialty Start Date End Date Andry Jean-Baptiste MD [address] [place] [address] PCP - General Family Medicine 08/15/24 Lew Bird APRN.VOLLEYBALL PLAYER [address] [place] [address] Special Weapons And Tactics Officer Family Medicine 10/10/24 Irma Perez PA-C [address] [place] [address] Special Weapons And Tactics Officer Family Medicine 10/10/24 Energy Operations Vice President Relationship Specialty Start Date End Date Andry Jean-Baptiste MD [address] [place] [address] PCP - General Family Medicine 08/15/24 Lew Bird AS400 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 [facility] [place] [address] Special Weapons And Tactics Officer Family Medicine 10/10/24 Irma Perez PA-C [address] [place] [address] Special Weapons And Tactics Officer Family Medicine 10/10/24 Energy Operations Vice President Relationship Specialty Start Date End Date Andry Jean-Baptiste MD [address] [place] [address] PCP - General Family Medicine 08/15/24 Lew Bird, CATIA.VOLLEYBALL PLAYER [address] [place] [address] Special Weapons And Tactics Officer Family Medicine 10/10/24 rIma Perez PA-C [address] [place] [address] Special Weapons And Tactics Officer Family Medicine 10/10/24 Energy Operations Vice President Relationship Specialty Start Date End Date Andry Jean-Baptiste MD [address] [place] [address] PCP - General Family Medicine 08/15/24 Lew Bird, AS400 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 [address] [place] [address] Special Weapons And Tactics Officer Family Medicine 10/10/24 Irma Perez PA-C [address] [place] [address] Special Weapons And Tactics Officer Family Medicine 10/10/24 Energy Operations Vice President Relationship Specialty Start Date End Date Andry Jean-Baptiste MD [address] [place] [address] PCP - General Family Medicine 08/15/24 Lew Bird, AS400 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 [address] [place] [address] Special Weapons And Tactics Officer Family Medicine 10/10/24 Irma Perez PA-C [address] [place] [address] [facility] Family Medicine 10/10/24 Energy Operations Vice President Relationship Specialty Start Date End Date Andry Jean-Baptiste MD [address] [place] [address] PCP - General Family Medicine 08/15/24 Lew Bird APRN.VOLLEYBALL PLAYER [address] [place] [address] [facility] 10/10/24 Irma Perez PA-C [address] [place] [address] [facility] 10/10/24 Reason for Visit (unrecogniz ed section and [...] MDM 60-74 MINUTES Andry Jean-Baptiste MD [address] [place] [address] Referral ID Status Reason Start Date Expiration Date V isits Requested Visits Authorized [id number] Closed PCP Requested Referral 03/07/2022 03/07/2023 1 [...] CAPACITY Teri Gross MD [address] [place] [address] [facility] [place] [address] [place] [address] Referral ID Status Reason Start Date Expiration Date V isits Requested Visits Authorized [id number] Closed Auto-Generate d Referral 04/16/2023 05/15/2024 1 [...] Teri Jara MD [address] [place] [address] [place] [address] Referral ID Status Reason Start Date Expiration Date V isits Requested Visits Authorized [id number] Closed Auto-Generate d Referral 06/16/2023 07/16/2023 1 1 Reason [address] CT Reason Comments F/U [address] scan, COPD , asthma Reason Onset Date Comments Refill Request 08/16/2023 Reason Onset Date Comments Refill Request 09/08/2023 Reason Comments Cough Reason Comments Hospital F/U Reason Comments Hospital F/U Reason Comments Ext / [facility] Reason Onset Date Comments Refill [...] W/O Teri Jara MD [address] [place] [address] Phone: tel: fax: [place] [phone] Referral ID Status Reason Start Date Expiration Date V isits Requested Visits Authorized [id number] Closed Auto-Generate d Referral 06/07/2024 08/06/2024 1 [...] days ago. Reason Comments Established Patient COPD Reason Onset Date Comments Patient Outreach 11/17/2024 Chart review re view per request of payor Reason Comments Abstract [facility] ED visit, withou t admission Reason Comments 6 Month Exam Reason Onset Date Comments Refill Request 12/19/2024 Reason Comments Follow Up rash Reason Comments Rash Reason Comments Medication Update and Reason Comments Established Patient 6 month follow up [place] Goals (unrecognized section and content) Goals may [...] BE BASED ON THE PRIMARY CLINICAL RECORDS. [facility] So Protect Me [facility]. provides no warranty or guarantee of the accuracy or completeness of information in this document.
[2025-02-27 23:11] LABS: Hematocrit 36.6 % (40-54); Hemoglobin 13.0 g/dL (13.0-16.5); Immature Granulocytes Count 0.010 X10^3/uL (0.0-0.0); Mean Corp Hgb Conc 35.5 g/dL (32-36); Mean Corpuscular Volume 86.5 fL (80-94); Mean Platelet Vol. 9.0 fl (6.2-12.0); NRBC Flagged by Analyzer 0 % (0-5); Platelet Count 292 K/mm3 (150-450); RBC Distribution Width CV 13.1 % (11.6-14.6); RBC Distribution Width SD 41.1 fl (35.1-43.9); Red Blood Count 4.23 M/mm3 (4.6-6.2); White Blood Count 5.8 K/mm3 (4.4-11.0)
[2025-02-27 23:18] LABS: Magnesium 2.2 mg/dL (1.5-2.2)
[2025-02-27 23:27] LABS: Anion Gap 13 (5-15); BUN 16 mg/dL (4-19); BUN/Creat Ratio 14.2 RATIO (10-20); Calcium,Total 9.1 mg/dL (7.6-11.0); Carbon Dioxide 23.0 mmol/L (21.0-32.0); Chloride 105 mmol/L (98-108); Estimated Creatinine Clearance 62.81 ml/min (50-250); Glucose 97 mg/dL (70-99); Potassium 4.3 mmol/L (3.3-5.1)
--- NOTE | 2025-02-27 23:44 | EX.ED.DYSGE1 ---
HPI History of Present Illness Chief Complaint: Shortness of Breath Informant: patient and spouse/S.O. Narrative Narrative: Patient is a 69-year-old male with past medical history of COPD hyperlipidemia and CAD. He states that over the last 2 to 3 days she has had increased congestion and cough and shortness of breath despite using his home medications. She denies any known sick contacts but states there have been multiple people at [facility] who have been sick with cough and congestion. The patient states he has had pneumonia in the past and he is concerned for this with his increased symptoms and therefore comes in for evaluation [facility] Medical History Respiratory failure Coronary artery disease Cardiology follow-up encounter Anxiety Wears partial dentures Wears glasses Arthritis Low iron High cholesterol Injury of back History of ulceration Gastric reflux Former smoker Asthma CPAP (continuous positive airway pressure) dependence Sleep apnea History of stress test Nonobstructive atherosclerosis of coronary artery Iron deficiency anemia Lumbar disc disease Peptic ulcer Iron deficiency anemia secondary to inadequate dietary iron intake Chronic low back pain Diverticulosis Hiatal hernia Malabsorption syndrome GERD (gastroesophageal reflux disease) [place] treated with BiPAP Hyperlipidemia Pulmonary emphysema Vitamin D deficiency Insomnia Bilateral carotid artery disease Home Medications ?Medication ?Instructions ?Recorded ?Last Taken ?Type calcium 600 mg (as carbonate)-vit 1 ea PO DAILY vitamin 09/08/16 Unknown History D3 10 mcg (400 unit) chewable tablet (Calcium 600 with Vitamin D3) albuterol sulfate 90 mcg/actuation 2 puff inhalation Q6H PRN Wheezing 10/24/21 Unknown History aerosol inhaler (Ventolin HFA) cholecalciferol (vitamin D3) 1,250 1,250 mcg PO QWEEK vitamin 10/24/21 Unknown History mcg (50,000 unit) tablet cyanocobalamin (vitamin B-12) 2,000 mcg PO DAILY vitamin 10/24/21 Unknown History 1,000 mcg tablet (Vitamin B-12) epinephrine 0.3 mg/0.3 mL 0.3 mg IM ONCE PRN Allergic 10/24/21 Unknown History injection, auto-injector (EpiPen) Reaction nitroglycerin 0.4 mg sublingual 0.4 mg sublingual Q5-15M PRN Chest 10/24/21 Unknown History tablet Pain omega-3 fatty acids 1,000 mg 1,000 mg PO DAILY supplement 10/24/21 Unknown History capsule omeprazole 40 mg capsule,delayed 40 mg PO BID reflux 10/24/21 Unknown History release coenzyme Q10 100 mg capsule (Co 100 mg PO QHS supplement 10/25/21 Unknown History Q-10) iron, carbonyl 45 mg tablet 45 mg PO DAILY supplement 04/22/22 Unknown History pravastatin 80 mg tablet 40 mg PO QHS cholesterol 10/29/22 Unknown History benzonatate 200 mg capsule 200 mg PO TID PRN PRN cough 09/20/23 Unknown History ipratropium 0.5 mg-albuterol 3 mg 3 ml inhalation Q4H PRN sob 09/20/23 Unknown History (2.5 mg base)/3 mL nebulization soln albuterol sulfate 90 mcg/actuation 2 puff inhalation Q4H PRN PRN 07/10/24 Unknown Rx aerosol inhaler (Ventolin HFA) Wheezing #1 ea doxycycline hyclate 100 mg capsule 100 mg PO BID 7 days #14 caps 02/27/25 Unknown Rx nystatin-triamcinolone 100,000 applic topical 4X/DAY 02/27/25 Unknown History unit/g-0.1 % topical cream prednisone 10 mg tablet 10 mg PO UD #33 tabs 02/27/25 Unknown Rx terbinafine HCl 250 mg tablet 250 mg PO DAILY 02/27/25 Unknown History Allergy/AdvReac Type Severity Reaction Status Date / Time bee venom protein (honey bee) Allergy Intermediate Hives Verified 02/27/25 21:25 morphine Allergy Intermediate hypotension Verified 02/27/25 21:25 pneumococcal vaccine Allergy Intermediate localized Verified 02/27/25 21:25 swelling codeine Allergy Unknown Verified 02/27/25 21:25 meperidine HCl (From Demerol) Allergy Unknown Verified 02/27/25 21:25 propoxyphene HCl (From Allergy Unknown Verified 02/27/25 21:25 Darvon) propoxyphene napsylate (From Allergy Unknown Verified 02/27/25 21:25 Darvocet-N 100) atorvastatin (From Lipitor) AdvReac Intermediate leg Verified 02/27/25 21:25 weakness Family History Mother Diabetes CHF (congestive heart failure) Hypertension Colon cancer Father Cancer pancreatic Sister Colon cancer Brother COPD (chronic obstructive pulmonary disease) Diabetes Cancer prostate Surgical History History of carpal tunnel release History of gastric bypass History of back surgery (09/11/15) H/O bypass gastrojejunostomy (~2006) History of left heart catheterization (10/28/21) History of esophagogastroduodenoscopy (EGD) (~10/23/20) History of colonoscopy (~10/23/20) History of appendectomy History of cholecystectomy (~2002) Social History Smoking Status: Former smoker Tobacco: How many years used: 33 how long ago did patient quit smokin08/07/2001 alcohol intake: never substance use type: does not use ROS ROS ED Constitutional Constitutional ED: Denies chills or fever(s) Eyes Eyes: Denies blurry vision or change in vision ENT ENT ED: Reports rhinorrhea and sore throat Cardiovascular Cardiovascular: Denies chest pain Respiratory/Chest Respiratory/Chest: Reports cough and dyspnea Gastrointestinal Gastrointestinal: Denies abdominal pain, diarrhea, nausea or vomiting Genitourinary Genitourinary ED: Denies dysuria Musculoskeletal Musculoskeletal: Reports myalgias Integumentary Denies rash Neurologic Neurologic: Denies headache(s) Hematologic/Lymphatic Hematologic/Lymphatic: Denies easy bleeding or easy bruising EXAM Physical Exam Const Vital Signs: 02/27/25 21:23 02/27/25 21:59 02/27/25 22:00 Temperature 98.3 F 98.3 F Temperature Source Oral Oral Pulse Rate 112 H 105 H Respiratory Rate 22 H 26 H Respiratory Effort Short of Breath Respiratory Pattern Tachypnea Blood Pressure 137/66 H 109/87 H Blood Pressure Mean 89 94 Pulse Ox 96 93 Oxygen Delivery Method Room Air Room Air Room Air 02/27/25 22:24 02/27/25 22:28 02/27/25 23:00 Temperature 98.3 F 98.3 F Temperature Source Oral Oral Pulse Rate 91 106 H 100 Respiratory Rate 23 H 22 H 20 H Respiratory Effort Respiratory Pattern Tachypnea Blood Pressure 109/87 H 113/63 Blood Pressure Mean 94 79 Pulse Ox 98 91 Oxygen Delivery Method Room Air Room Air 02/27/25 23:43 Temperature 98.3 F Temperature Source Pulse Rate 100 Respiratory Rate 18 Respiratory Effort Respiratory Pattern Blood Pressure 126/56 H Blood Pressure Mean 79 Pulse Ox 91 Oxygen Delivery Method Positive well nourished and well developed General Appearance ED: well developed; Negative for pallor HEENT HEENT Narrative: Normocephalic atraumatic Nasal mucosa is hyperemic and boggy No tongue or lip swelling no oral lesions no airway edema or compromise There is cobblestoning noted in the posterior pharynx consistent with sinus drainage; no secondary findings to suggest infection Eyes PERRL and EOMs intact bilaterally General Eye ED: Negative for scleral icterus Neck supple and no JVD Resp normal respiratory effort Resp Narrative: Breath sounds are diminished throughout with faint rhonchi in the bilateral bases and diffuse expiratory wheezing. No nasal flaring or retractions or dyspnea with speech noted. Cardio regular rate and regular rhythm Rate: other Other Details: Radial and carotid pulses are equal and symmetric Extremity normal to inspection Extremity Narrative: No asymmetric edema no pitting edema negative Homans' sign bilaterally Neuro oriented x3, CN's II-XII intact bilaterally and no sensory deficits noted Sensorium / Orientation: alert Motor Exam: strength 5/5 throughout Psych mental status grossly normal Skin no rashes or lesions noted General Skin Exam: Negative for jaundice or pallor MDM MDM MDM Narrative Medical decision making narrative: Patient arrived to ER satting in the mid 90s on room air. However he did have increased work of breathing. History and exam is most consistent with viral infection such as COVID influenza or RSV leading to COPD exacerbation. In order to ensure that his shortness of breath was not due to acute blood loss anemia acute kidney injury or electrolyte abnormality basic blood work was obtained. As he does have history of CAD a EKG was ordered. Chest x-ray was obtained to assess for pleural effusion versus pneumonia versus pneumothorax. Blood work revealed no clinically significant findings. EKG showed no signs of ischemia. Chest x-ray revealed no acute lung pathology such as pneumonia or pneumothorax. After receiving IV Solu-Medrol as well as albuterol and DuoNeb nebulizer treatments the patient reported feeling better his work of breathing improved and his breath sounds improved as well. At this time he is not hypoxic he is not in respiratory distress he does not have findings of systemic infection therefore I do not feel the need for admission or further workup. Patient can be discharged home on symptomatic medications and follow-up with his family doctor as an outpatient History & Record Review Discussion w/independent historian: Patient and Significant other Lab Data Attestation: I reviewed the patient's lab results. Labs: Laboratory Results - last 24 hr 02/27/25 22:01 WBC 5.8 RBC 4.23 L Hgb 13.0 Hct 36.6 L MCV 86.5 MCH 30.7 MCHC 35.5 RDW Std Deviation 41.1 RDW Coeff of Dari 13.1 Plt Count 292 MPV 9.0 Immature Gran % (Auto) 0.200 Neut % (Auto) 56.3 Lymph % (Auto) 21.0 [place] % (Auto) 9.3 Eos % (Auto) 12.2 H Baso % (Auto) 1.0 Absolute Neuts (auto) 3.3 Absolute Lymphs (auto) 1.22 Nucleated RBC % 0 Sodium 141 Potassium 4.3 Chloride 105 Carbon Dioxide 23.0 Anion Gap 13 BUN 16 Creatinine 1.13 Estim Creat Clear Calc 62.81 Est GFR (MDRD) Non-Af 70 BUN/Creatinine Ratio 14.2 Glucose 97 Calcium 9.1 Magnesium 2.2 Radiography Diagnostic Testing: Clinical Impression(s) from Imaging Studies Chest X-Ray 02/27/25 22:17 IMPRESSION: No acute pulmonary disease. Reading Location: [facility] Chest x-ray as interpreted by the emergency medicine physician reveals no acute infiltrate pneumothorax or pleural effusion Discharge Plan Triage Chief Complaint: Shortness of Breath ED Provider: Tom Prescott Dx/Rx/DC Orders Clinical Impression: Acute exacerbation of chronic obstructive pulmonary disease, Hyperlipidemia, CAD (coronary artery disease) Instructions: COPD: Wheezing and Chest Tightness, ED URI, Viral W/ Wheezing (Adult) Prescriptions: New doxycycline hyclate 100 mg capsule 100 mg PO BID 7 Days Qty: 14 0RF prednisone 10 mg tablet 10 mg PO UD Qty: 33 0RF Rx Instructions: Take 4 tablets daily for 3 days, then 3 daily for 3 days, then 2 daily for 3 days, then 1 a day for 3 days then 1 QOD for 3 doses. No Action coenzyme Q10 [Co Q-10] 100 mg capsule 100 mg PO QHS omeprazole 40 mg capsule,delayed release(DR/EC) 40 mg PO BID cyanocobalamin (vitamin B-12) [Vitamin B-12] 1,000 mcg tablet 2,000 mcg PO DAILY cholecalciferol (vitamin D3) 1,250 mcg (50,000 unit) tablet 1,250 mcg PO QWEEK epinephrine [EpiPen] 0.3 mg/0.3 mL auto-injector 0.3 mg IM ONCE PRN (Reason: Allergic Reaction) Rx Instructions: as a single dose; may repeat once omega-3 fatty acids 1,000 mg capsule 1,000 mg PO DAILY nitroglycerin 0.4 mg tablet, sublingual 0.4 mg sublingual Q5-15M PRN (Reason: Chest Pain) Rx Instructions: do not exceed 3 doses per episode iron, carbonyl 45 mg tablet 45 mg PO DAILY pravastatin 80 mg tablet 40 mg PO QHS Calcium 600 with Vitamin D3 1 EACH tablet,chewable 1 ea PO DAILY albuterol sulfate [Ventolin HFA] 90 mcg/actuation HFA aerosol inhaler 2 puff inhalation Q6H PRN (Reason: Wheezing) albuterol sulfate [Ventolin HFA] 90 mcg/actuation HFA aerosol inhaler 2 puff inhalation Q4H PRN PRN (Reason: Wheezing) Qty: 1 0RF benzonatate 200 mg capsule 200 mg PO TID PRN PRN (Reason: cough) ipratropium-albuterol 0.5 mg-3 mg(2.5 mg base)/3 mL solution for nebulization 3 ml inhalation Q4H PRN (Reason: sob) nystatin-triamcinolone 100,000-0.1 unit/g-% cream topical 4X/DAY terbinafine HCl 250 mg tablet 250 mg PO DAILY Primary Care Provider: Andry Etienne Referrals: Andry Etienne MD [Primary Care Provider, Family Practice] Activity Restrictions/Additional Instructions: Please continue all of your normal medications as directed. You will need to use your nebulizer 4-6 times a day for the next 3 to 7 days to help with bronchospasm and shortness of breath. Take the medication as directed to help reduce inflammatory changes as well as prevent secondary infection. Return to the ER should you have any further concerns or worsening of symptoms Print Language: Jordanian Disposition Disposition: Home, Self Care Discharge Date/Time: 02/27/25 23:54
== END 2025-02-27 23:54 | disposition home or self-care (01) ==
PROVIDERS: Emergency Provider Emergency Medicine; PCP Family Medicine; Visit Provider Emergency Medicine
DX: J44.1 Chronic obstructive pulmonary disease with (acute) exacerbation (principal); I25.10 Atherosclerotic heart disease of native coronary artery without angina pectoris; E78.5 Hyperlipidemia, unspecified; K21.9 Gastro-esophageal reflux disease without esophagitis; G47.33 Obstructive sleep apnea (adult) (pediatric); Z87.891 Personal history of nicotine dependence; Z79.51 Long term (current) use of inhaled steroids; Z79.899 Other long term (current) drug therapy
CPT/HCPCS: 71046; 80048; 83735; 85025; 93005; 94640; 96374; 99283; A4216

== ENCOUNTER 2025-04-14 14:38 | Emergency (ER) | payer MEDICARE, SELFPAY ==
[2025-04-14] VITALS (9 sets, daily range): BP systolic 117–130; BP diastolic 64–78; PULSE 97–106; RESP 15–22; TEMP 36.4–36.8; O2SAT 92–97; BMI 26.5
--- NOTE | 2025-04-14 15:23 | EKG12_ITS ---
Test Reason : Blood Pressure : */* mmHG Vent. Rate : 101 BPM Atrial Rate : 101 BPM P-R Int : 144 ms QRS Dur : 84 ms QT Int : 346 ms P-R-T Axes : 81 57 52 degrees QTcB Int : 448 ms Sinus tachycardia Otherwise normal ECG Confirmed by SHRUTHI JAMES, LINDA ([id number]), newspaper managing editor JEMMA STACY ([id number]) on 04/17/2025 6:06:32 AM Referred By: Confirmed By: LINDA HAWKINS MD
--- NOTE | 2025-04-14 15:24 | ED.VIS.DYS ---
HPI History of Present Illness Chief Complaint: Shortness of Breath Informant: patient and spouse/S.O. Narrative Narrative: 69-year-old male presenting to the emergency room chief complaint shortness of breath. Patient and his had upper respiratory infections for little over a week. She notes that she is doing better but he has been increasingly short of breath and worsening cough. He states that on Thursday he got very winded taking his trash can [address] driveway and back. He states that he has been coughing up phlegm. His thermometer has not been working at home but at times he gets very sweaty. He states that his inhalers are not working like they have in the past. He is post to see Dr. Wiley with pulmonary on Thursday. No vomiting or diarrhea. He denies any chest pain. He denies history of pulmonary embolism. He has not wear oxygen at home. [facility] Medical History Respiratory failure Coronary artery disease Cardiology follow-up encounter Anxiety Wears partial dentures Wears glasses Arthritis Low iron High cholesterol Injury of back History of ulceration Gastric reflux Former smoker Asthma CPAP (continuous positive airway pressure) dependence Sleep apnea History of stress test Nonobstructive atherosclerosis of coronary artery Iron deficiency anemia Lumbar disc disease Peptic ulcer Iron deficiency anemia secondary to inadequate dietary iron intake Chronic low back pain Diverticulosis Hiatal hernia Malabsorption syndrome GERD (gastroesophageal reflux disease) [place] treated with BiPAP Hyperlipidemia Pulmonary emphysema Vitamin D deficiency Insomnia Bilateral carotid artery disease Home Medications ?Medication ?Instructions ?Recorded ?Last Taken ?Type calcium 600 mg (as carbonate)-vit 1 ea PO DAILY vitamin 09/08/16 Unknown History D3 10 mcg (400 unit) chewable tablet (Calcium 600 with Vitamin D3) albuterol sulfate 90 mcg/actuation 2 puff inhalation Q6H PRN Wheezing 10/24/21 Unknown History aerosol inhaler (Ventolin HFA) cyanocobalamin (vitamin B-12) 2,000 mcg PO DAILY vitamin 10/24/21 Unknown History 1,000 mcg tablet (Vitamin B-12) epinephrine 0.3 mg/0.3 mL 0.3 mg IM ONCE PRN Allergic 10/24/21 Unknown History injection, auto-injector (EpiPen) Reaction nitroglycerin 0.4 mg sublingual 0.4 mg sublingual Q5-15M PRN Chest 10/24/21 Unknown History tablet Pain omega-3 fatty acids 1,000 mg 1,000 mg PO DAILY supplement 10/24/21 Unknown History capsule omeprazole 40 mg capsule,delayed 40 mg PO BID reflux 10/24/21 Unknown History release coenzyme Q10 100 mg capsule (Co 100 mg PO QHS supplement 10/25/21 Unknown History Q-10) iron, carbonyl 45 mg tablet 45 mg PO DAILY supplement 04/22/22 Unknown History pravastatin 80 mg tablet 40 mg PO QHS cholesterol 10/29/22 Unknown History benzonatate 200 mg capsule 200 mg PO TID PRN PRN cough 09/20/23 Unknown History ipratropium 0.5 mg-albuterol 3 mg 3 ml inhalation Q4H PRN sob 09/20/23 Unknown History (2.5 mg base)/3 mL nebulization soln doxycycline hyclate 100 mg capsule 100 mg PO BID 7 days #14 caps 02/27/25 Unknown Rx nystatin-triamcinolone 100,000 applic topical 4X/DAY 02/27/25 Unknown History unit/g-0.1 % topical cream prednisone 10 mg tablet 10 mg PO UD #33 tabs 02/27/25 Unknown Rx terbinafine HCl 250 mg tablet 250 mg PO DAILY 02/27/25 Unknown History azithromycin 250 mg tablet See Rx Instructions PO .COMPLEX #6 04/14/25 Unknown Rx (Zithromax Z-Aaron) tabs cholecalciferol (vitamin D3) 1,250 1,250 mcg PO QWEEK 04/14/25 Unknown History mcg (50,000 unit) capsule pravastatin 40 mg tablet 40 mg PO DAILY 04/14/25 Unknown History prednisone 20 mg tablet 60 mg (3 x 20 mg) PO DAILY #15 04/14/25 Unknown Rx TABLETS Allergy/AdvReac Type Severity Reaction Status Date / Time bee venom protein (honey bee) Allergy Intermediate Hives Verified 04/14/25 14:40 morphine Allergy Intermediate hypotension Verified 04/14/25 14:40 pneumococcal vaccine Allergy Intermediate localized Verified 04/14/25 14:40 swelling codeine Allergy Unknown Verified 04/14/25 14:40 meperidine HCl (From Demerol) Allergy Unknown Verified 04/14/25 14:40 propoxyphene HCl (From Allergy Unknown Verified 04/14/25 14:40 Darvon) propoxyphene napsylate (From Allergy Unknown Verified 04/14/25 14:40 Darvocet-N 100) atorvastatin (From Lipitor) AdvReac Intermediate leg Verified 04/14/25 14:40 weakness Family History Mother Diabetes CHF (congestive heart failure) Hypertension Colon cancer Father Cancer pancreatic Sister Colon cancer Brother COPD (chronic obstructive pulmonary disease) Diabetes Cancer prostate Surgical History History of carpal tunnel release History of gastric bypass History of back surgery (09/11/15) H/O bypass gastrojejunostomy (~2006) History of left heart catheterization (10/28/21) History of esophagogastroduodenoscopy (EGD) (~10/23/20) History of colonoscopy (~10/23/20) History of appendectomy History of cholecystectomy (~2002) Social History Smoking Status: Former smoker Tobacco: How many years used: 33 how long ago did patient quit smokin08/07/2001 alcohol intake: never substance use type: does not use ROS ROS ED Constitutional Constitutional ED: Reports sweats; Denies chills, fever(s) or weight loss Eyes Eyes: Denies change in vision or diplopia ENT ENT ED: Denies ear pain, rhinorrhea or sore throat Cardiovascular Cardiovascular: Denies chest pain, orthopnea, palpitations or racing heartbeat Respiratory/Chest Respiratory/Chest: Reports cough, dyspnea, dyspnea on exertion and sputum; Denies orthopnea Gastrointestinal Gastrointestinal: Denies abdominal pain, diarrhea, nausea or vomiting Genitourinary Genitourinary ED: Denies dysuria, hematuria or urinary frequency Musculoskeletal Musculoskeletal: Denies arthralgias, back pain or myalgias Integumentary Denies abscess or rash Neurologic Neurologic: Denies headache(s) or weakness Psychiatric Psychiatric: Denies anxiety, depression, suicidal ideation or suicidal thoughts Endocrine Endocrinology: Denies polydipsia, polyphagia or polyuria Allergic/Immunologic Allergic/Immunologic ED: Denies mouth swelling, tongue swelling or urticaria EXAM Physical Exam Const Vital Signs: 04/14/25 14:39 04/14/25 14:40 12/05/25 15:20 Temperature 98.2 F 97.5 F L Temperature Source Oral Oral Pulse Rate 106 H 106 H Respiratory Rate 16 16 Respiratory Effort Short of Breath Respiratory Depth Deep Respiratory Pattern Tachypnea Blood Pressure 124/78 H 124/78 H Blood Pressure Mean 93 93 Pulse Ox 97 97 Oxygen Delivery Method Room Air Room Air Room Air 04/14/25 15:36 04/14/25 15:40 04/14/25 16:00 Temperature 97.5 F L 97.5 F L Temperature Source Oral Oral Pulse Rate 97 105 H 103 H Respiratory Rate 16 22 H 15 Respiratory Effort Respiratory Depth Respiratory Pattern Normal Blood Pressure 128/68 H 130/64 H Blood Pressure Mean 88 86 Pulse Ox 92 92 Oxygen Delivery Method Room Air Room Air 04/14/25 17:00 04/14/25 17:31 Temperature 97.5 F L 98 F Temperature Source Oral Pulse Rate 103 H 104 H Respiratory Rate 15 18 Respiratory Effort Respiratory Depth Respiratory Pattern Blood Pressure 117/67 117/67 Blood Pressure Mean 83 83 Pulse Ox 93 95 Oxygen Delivery Method Room Air Positive well nourished and well developed General Appearance ED: well developed and NAD HEENT Reports normocephalic, head/scalp atraumatic and moist mucous membranes Eyes PERRL and EOMs intact bilaterally Neck no lymphadenopathy, supple and no JVD Resp Resp Narrative: Patient appears dyspneic at rest. Barrel chested Auscultation: wheezes expiratory wheezes and inspiratory wheezes and diminished lung sounds bilateral Cardio regular rate, regular rhythm and no murmurs Rate: tachycardic GI normal to inspection, nondistended, normoactive bowel sounds and non-tender Palpation: soft Back/Spine no CVA tenderness and normal ROM Extremity normal to inspection General Extremety ED: Negative for edema General Extremity: Negative for edema Neuro oriented x3 and CN's II-XII intact bilaterally Sensorium / Orientation: alert Motor Exam: strength 5/5 throughout Psych mental status grossly normal Mood & Affect: Negative for depressed or tearful Skin no rashes or lesions noted and no wounds MDM MDM MDM Narrative Medical decision making narrative: Differential diagnosis includes but not limited to pneumonia pleural effusion COPD exacerbation bronchitis viral syndrome cardiac dysrhythmia electrolyte EKG shows a sinus tachycardia rate of 101. My independent interpretation of the 2 view chest x-ray is no acute process. Chronic changes are noted. White count 5.3 hemoglobin 13.5. BMP shows a glucose 93 normal electrolytes. COVID influenza and RSV swabs were negative. Patient received breathing treatments and Solu-Medrol. Patient is able to ambulate without desaturation. Repeat lung exam shows his lung sounds to be without wheezing and he seems more comfortable at rest. I spoke with the patient and his about doing more frequent breathing treatments as well as a short course of steroids. They will monitor his breathing and return if needed. Follow-up with pulmonology next week. History & Record Review Discussion w/independent historian: Patient and Significant other Lab Data Attestation: I reviewed the patient's lab results. Labs: Laboratory Results - last 24 hr 04/14/25 04/14/25 14:57 17:02 WBC 5.3 RBC 4.41 L Hgb 13.5 Hct 39.8 L MCV 90.2 MCH 30.6 MCHC 33.9 RDW Std Deviation 42.5 RDW Coeff of Dari 12.8 Plt Count 293 MPV 8.7 Immature Gran % (Auto) 0.200 Neut % (Auto) 59.7 Lymph % (Auto) 17.1 L Hinds % (Auto) 10.4 H Eos % (Auto) 11.1 H Baso % (Auto) 1.5 H Absolute Neuts (auto) 3.2 Absolute Lymphs (auto) 0.91 Nucleated RBC % 0 Sodium 140 Potassium 4.3 Chloride 103 Carbon Dioxide 24.1 Anion Gap 13 BUN 12 Creatinine 0.98 Estim Creat Clear Calc 72.42 Est GFR (MDRD) Non-Af 83 BUN/Creatinine Ratio 12.3 Glucose 93 Calcium 9.7 Troponin T High Sens < 6 Troponin T Hi Sens 2 Hr < 6 NT pro BNP II < 36 Radiography Diagnostic Testing: Clinical Impression(s) from Imaging Studies Chest X-Ray 04/14/25 15:45 IMPRESSION: As above. Reading Location: [id number] EKG Initial EKG: Attestation: I personally reviewed and interpreted this EKG as follows: Comments: Sinus tachycardia ventricular rate of 101 bpm Discharge Plan Triage Chief Complaint: Shortness of Breath ED Provider: Toby Garcia Dx/Rx/DC Orders Clinical Impression: Asthma exacerbation in COPD, Acute dyspnea Instructions: ED COPD Flare Prescriptions: New prednisone 20 mg tablet 60 mg PO DAILY Qty: 15 0RF azithromycin [Zithromax Z-Aaron] 250 mg tablet See Rx Instructions PO .COMPLEX Qty: 6 0RF Rx Instructions: For 250 mg dose pack: take 500 mg today (day 1), then 250 mg for 4 days (days 2-5) No Action coenzyme Q10 [Co Q-10] 100 mg capsule 100 mg PO QHS omeprazole 40 mg capsule,delayed release(DR/EC) 40 mg PO BID cyanocobalamin (vitamin B-12) [Vitamin B-12] 1,000 mcg tablet 2,000 mcg PO DAILY epinephrine [EpiPen] 0.3 mg/0.3 mL auto-injector 0.3 mg IM ONCE PRN (Reason: Allergic Reaction) Rx Instructions: as a single dose; may repeat once omega-3 fatty acids 1,000 mg capsule 1,000 mg PO DAILY nitroglycerin 0.4 mg tablet, sublingual 0.4 mg sublingual Q5-15M PRN (Reason: Chest Pain) Rx Instructions: do not exceed 3 doses per episode iron, carbonyl 45 mg tablet 45 mg PO DAILY pravastatin 80 mg tablet 40 mg PO QHS Calcium 600 with Vitamin D3 1 EACH tablet,chewable 1 ea PO DAILY albuterol sulfate [Ventolin HFA] 90 mcg/actuation HFA aerosol inhaler 2 puff inhalation Q6H PRN (Reason: Wheezing) pravastatin 40 mg tablet 40 mg PO DAILY cholecalciferol (vitamin D3) 1,250 mcg (50,000 unit) capsule 1,250 mcg PO QWEEK benzonatate 200 mg capsule 200 mg PO TID PRN PRN (Reason: cough) ipratropium-albuterol 0.5 mg-3 mg(2.5 mg base)/3 mL solution for nebulization 3 ml inhalation Q4H PRN (Reason: sob) nystatin-triamcinolone 100,000-0.1 unit/g-% cream topical 4X/DAY terbinafine HCl 250 mg tablet 250 mg PO DAILY doxycycline hyclate 100 mg capsule 100 mg PO BID 7 Days Qty: 14 0RF prednisone 10 mg tablet 10 mg PO UD Qty: 33 0RF Rx Instructions: Take 4 tablets daily for 3 days, then 3 daily for 3 days, then 2 daily for 3 days, then 1 a day for 3 days then 1 QOD for 3 doses. Primary Care Provider: Andry Etienne Referrals: Andry Etienne MD [Primary Care Provider, Family Practice] - As Needed Activity Restrictions/Additional Instructions: Follow-up with your transplant registered nurse as scheduled I recommend DuoNeb breathing treatment at least every 4 hours over the next several days You have been prescribed a short course of prednisone. Should your breathing worsen or you have concerns return to emergency. Print Language: [place]an Disposition Disposition: Home, Self Care Discharge Date/Time: 04/14/25 17:32
[2025-04-14] MEDS: Albuterol 2.5 MG/3 ML VIAL.NEB. INHALATION (15:36)
[2025-04-14 15:43] LABS: Hematocrit 39.8 % (40-54); Hemoglobin 13.5 g/dL (13.0-16.5); Immature Granulocytes Count 0.010 X10^3/uL (0.0-0.0); Mean Corp Hgb Conc 33.9 g/dL (32-36); Mean Corpuscular Volume 90.2 fL (80-94); Mean Platelet Vol. 8.7 fl (6.2-12.0); NRBC Flagged by Analyzer 0 % (0-5); Platelet Count 293 K/mm3 (150-450); RBC Distribution Width CV 12.8 % (11.6-14.6); RBC Distribution Width SD 42.5 fl (35.1-43.9); Red Blood Count 4.41 M/mm3 (4.6-6.2); White Blood Count 5.3 K/mm3 (4.4-11.0)
--- NOTE | 2025-04-14 15:45 | RAD_ITS ---
PROCEDURE: CHEST PA AND LATERAL 04/14/2025 REASON FOR EXAM: COUGH / SOB TECHNIQUE: Procedure Code: RADCXR Modality: DX Procedure: CHEST PA AND LATERAL COMPARISON: 02/27/2025. FINDINGS: No significant interval change. Mild chronic bronchopulmonary changes are noted within the lungs without airspace consolidation or pleural effusion. Stable calcified right hilar lymph node. The heart is normal in size. No acute osseous abnormality. Surgical clips are noted in the left epigastric region. RAD/Chest PA and Lateral IMPRESSION: As above. Reading Location: [id number]
[2025-04-14 16:09] LABS: Anion Gap 13 (5-15); BUN 12 mg/dL (4-19); BUN/Creat Ratio 12.3 RATIO (10-20); Calcium,Total 9.7 mg/dL (7.6-11.0); Carbon Dioxide 24.1 mmol/L (21.0-32.0); Chloride 103 mmol/L (98-108); Estimated Creatinine Clearance 72.42 ml/min (50-250); Glucose 93 mg/dL (70-99); Potassium 4.3 mmol/L (3.3-5.1)
[2025-04-14 16:41] LABS: Pro- Brain NATRIURETIC PEPTIDE < 36 pg/mL (<=900); Troponin T High Sensitivity < 6 ng/L (<=22)
[2025-04-14 17:50] LABS: Troponin T High Sens 2 HR < 6 ng/L (<=22)
== END 2025-04-14 17:32 | disposition home or self-care (01) ==
PROVIDERS: Emergency Provider Emergency Medicine; PCP Family Medicine; Visit Provider Emergency Medicine
DX: J45.901 Unspecified asthma with (acute) exacerbation (principal); J43.9 Emphysema, unspecified; I25.10 Atherosclerotic heart disease of native coronary artery without angina pectoris; G47.33 Obstructive sleep apnea (adult) (pediatric); Z79.51 Long term (current) use of inhaled steroids; Z87.891 Personal history of nicotine dependence
CPT/HCPCS: 71046; 80048; 83880; 84484; 85025; 87631; 93005; 94640; 96374; 99284; A4216